=== PATIENT | male | born 1975 | race Caucasian/White ===

== ENCOUNTER 2017-12-23 20:47 | Inpatient (IN) | payer MEDICAID ==
[2017-12-23] MEDS ORDERED: HYDROmorphone INJ* 2 MG/ML CARPUJECT SYRINGE IV SLOW PU ONE (21:26)
[2017-12-23] MEDS ORDERED: HYDROmorphone INJ* 2 MG/ML CARPUJECT SYRINGE IV SLOW PU PRN (21:26)
[2017-12-23] MEDS ORDERED: Promethazine INJ(RESTRICTED)* 25 MG/ML 1 ML VIAL IV PRN ×2 (21:29→23:19)
[2017-12-23] MEDS ORDERED: NS 0.9% 1000 ML* 3,000 ML IV ONE (21:29)
[2017-12-23 22:16] LABS: ABS Basophils 0 10^3/ul (0-0.2); ABS Eosinophils 0.1 10^3/ul (0-0.6); ABS Lymphocytes 0.7 10^3/ul (1.0-4.8); ABS Monocytes 0.6 10^3/ul (0-0.8); ABS Neutrophils 6.4 10^3/ul (1.5-7.7); ABS Nucleated RBC 0 10^3/ul; Eosinophil % 0.7 % (0-6); Hematocrit 38 % (42-52); Hemoglobin 12.9 g/dl (14.0-18.0); Lymphocyte % 9.6 % (25-47); Mean Corpuscular HGB Conc 34 g/dl (31-36); Mean Corpuscular Hemoglobin 29 pg (27-31); Mean Corpuscular Volume 86 fL (80-94); Mean Platelet Volume 8.5 um3 (7.4-10.4); Nucleated Red Blood Cells % 0; Platelet Count 237 10^3/ul (150-450); Red Blood Count 4.41 10^6/ul (4.0-5.4); Red Cell Distribution Width 13 % (10.5-15); White Blood Count 7.8 10^3/ul (3.5-10.8)
[2017-12-23] MEDS ORDERED: Promethazine INJ(RESTRICTED)* 25 MG in NS 0.9% 50 ML* 50 ML IVPB ONE (22:45)
[2017-12-24] MEDS ORDERED: Al Hydrox/Mg Hydrox/Simet LIQ* 30 ML UDC PO PRN (00:08)
[2017-12-24] MEDS ORDERED: Dextrose 50% Syringe 50 ML* 25 GM/50 ML SYRINGE IV PUSH PRN ×4 (00:11→11:16)
[2017-12-24] MEDS ORDERED: Senna TAB PO PRN (00:24)
[2017-12-24] MEDS ORDERED: Docusate CAP* 100 MG PO PRN (00:24)
[2017-12-24] MEDS: Insulin GLARGINE(*) 1 UNITS UNIT SUBCUT SCH ×2 (01:27→10:32)
--- NOTE | 2017-12-24 01:47 | ED ---
Petey Garcia Julia, scribed for Phillip Mathis MD on 12/23/17 at 2241 . Abdominal Pain/Male - HPI Summary HPI Summary: This patient is a 42 year old M presenting to [facility] accompanied by his girlfriend with a chief complaint of RUQ abdominal pain since last night. Patient describes symptoms as a pancreatitis attack. He has a long history of pancreatitis with similar symptoms due to a hx of familial hypertriglyceridemia. He is often admitted for these symptoms. His girlfriend report nausea and vomiting. The patient rates the pain 8/10 in severity. PMHx includes IDDM. - History of Current Complaint Chief Complaint: EDAbdPain Stated Complaint: WEAKNESS/ABD PAIN Time Seen by Provider: 12/23/17 21:19 Hx Obtained From: Patient, Family/Post Manager Onset/Duration: Sudden Onset, Lasting Days Timing: Constant Pain Intensity: 8 Pain Scale Used: 0-10 Numeric Location: Discrete At: RUQ Character: Other: - pancreatitis attack Associated Signs And Symptoms: Positive: Nausea, Vomiting Similar Episode/Dx As:: familial hypertriglyceridemia - Allergies/Home Medications Allergies/Adverse Reactions: Allergies Allergy/AdvReac Type Severity Reaction Status Date / Time acetaminophen [From Tylenol] AdvReac Intermediate GI Upset Verified 12/23/17 20: 52 codeine AdvReac Intermediate GI Upset Verified 12/23/17 20:52 ibuprofen AdvReac Intermediate GI Upset Verified 12/23/17 20:52 Home Medications: Home Medications Gemfibrozil TAB* [Lopid TAB*] 600 mg PO BID 12/23/17 [History Confirmed ] PMH/Surg Hx/FS Hx/Imm Hx Endocrine/Hematology History: Reports: Hx Diabetes, Other Endocrine/ Hematological Disorders - pancreatitis Denies: Hx Thyroid Disease Cardiovascular History: Reports: Hx Hypercholesterolemia Denies: Hx Congestive Heart Failure, Hx Hypertension Respiratory History: Denies: Hx Asthma, Hx Chronic Obstructive Pulmonary Disease (COPD) GI History: Reports: Hx Gastroesophageal Reflux Disease Denies: Hx Ulcer History: Denies: Hx Dialysis, Hx Renal Disease Sensory History: Denies: Hx Cataracts, Hx Contacts or Glasses, Hx Eye Injury, Hx Eye Prosthesis, Hx Glaucoma, Hx Legally Blind, Hx Macular Degeneration, Hx Vision Problem, Hx Deafness, Hx Hearing Aid, Hx Hearing Problem, Other Sensory Impairments Opthamlomology History: Denies: Hx Cataracts, Hx Contacts or Glasses, Hx Eye Injury, Hx Eye Prosthesis, Hx Glaucoma, Hx Legally Blind, Hx Macular Degeneration, Hx Vision Problem, Other Sensory Impairments Neurological History: Denies: Hx Dementia, Hx Developmental Delay, Hx Headaches, Hx Migraine, Hx Nerve Disease, Hx Seizures, Hx Spinal Cord Injury, Hx Transient Ischemic Attacks (TIA), Other Neuro Impairments/Disorders - Surgical History Surgery Procedure, Year, and Place: skin grafting at 18 months of age on forehead, PEICE OF PANCREAS REMOVED 08/2014 @ [place], [place] W/A DRAIN IN PLACE Hx Anesthesia Reactions: No - Immunization History Date of Tetanus Vaccine: utd Date of Influenza Vaccine: fall 2016 Infectious Disease History: No Infectious Disease History: Denies: Hx Clostridium Difficile, Hx Hepatitis, Hx Human Immunodeficiency Virus (HIV), Hx of Known/Suspected MRSA, Hx Shingles, Hx Tuberculosis, Traveled Outside the in Last 30 Days - Family History Known Family History: Positive: Other - Familial hypercholesterolemia - Social History Alcohol Use: None Hx Substance Use: Yes Substance Use Type: Reports: None Substance Use Comment - Amount & Last Used: marijuana used occasionally to increase appetite and treat pain Hx Tobacco Use: Yes Smoking Status (MU): Current Every Day Smoker Type: Cigarettes Amount Used/How Often: 1/2 ppd Have You Smoked in the Last Year: Yes Review of Systems Negative: Fever Positive: Abdominal Pain, Vomiting, Nausea All Other Systems Reviewed And Are Negative: Yes Physical Exam - Summary Physical Exam Summary: Appearance: moderately ill appearing, Well-nourished, lying in bed comfortably Skin: Warm, dry, no obvious rash Eyes: sclera anicteric, no conjunctiva pallor ENT: mucous membranes moist, pharynx appears normal Neck: Supple, nontender Respiratory: Clear to auscultation, no signs of respiratory distress Cardiovascular: Normal S1, S2. No murmurs. Normal distal pulses in tibial and radial bilaterally. Abdomen: Soft, normal active bowel sounds present, generalized abdominal tenderness Musculoskeletal: Normal, Strength/ROM Intact Neurological: A&Ox3, awake and alert, mentation is normal, speech is fluent and appropriate Psychiatric: affect is normal, does not appear anxious or depressed Triage Information Reviewed: Yes Vital Signs On Initial Exam: Initial Vitals Temp Pulse Resp BP Pulse Ox 98.2 F 98 20 128/84 94 12/23/17 20:48 12/23/17 20:48 12/23/17 20:48 12/23/17 20:48 12/23/17 20:48 Vital Signs Reviewed: Yes Diagnostics - Vital Signs Vital Signs Temp Pulse Resp BP Pulse Ox 12/23/17 22:09 18 12/23/17 22:00 94 29 94 12/23/17 21:15 91 21 120/79 96 12/23/17 20:48 98.2 F 98 20 128/84 94 - Laboratory Lab Results: Lab Results 12/23/17 12/23/17 Range/Units 21:52 21:52 WBC 7.8 (3.5-10.8) 10^3/ul RBC 4.41 (4.0-5.4) 10^6/ul Hgb 12.9 L (14.0-18.0) g/dl Hct 38 L (42-52) % MCV 86 (80-94) fL MCH 29 (27-31) pg MCHC 34 (31-36) g/dl RDW 13 (10.5-15) % Plt Count 237 (150-450) 10^3/ul MPV 8.5 (7.4-10.4) um3 Neut % (Auto) 81.9 (38-83) % Lymph % (Auto) 9.6 L (25-47) % Terry % (Auto) 7.5 H (0-7) % Eos % (Auto) 0.7 (0-6) % Baso % (Auto) 0.3 (0-2) % Absolute Neuts (auto) 6.4 (1.5-7.7) 10^3/ul Absolute Lymphs (auto) 0.7 L (1.0-4.8) 10^3/ul Absolute Monos (auto) 0.6 (0-0.8) 10^3/ul Absolute Eos (auto) 0.1 (0-0.6) 10^3/ul Absolute Basos (auto) 0 (0-0.2) 10^3/ul Absolute Nucleated RBC 0 10^3/ul Nucleated RBC % 0 Sodium 132 L (139-145) mmol/L Potassium 3.9 (3.5-5.0) mmol/L Chloride 96 L (101-111) mmol/L Carbon Dioxide 27 (22-32) mmol/L Anion Gap 9 (2-11) mmol/L BUN 12 (6-24) mg/dL Creatinine 0.81 (0.67-1.17) mg/dL Est GFR ( Amer) 135.1 (>60) Est GFR (Non-Af Amer) 105.0 (>60) BUN/Creatinine Ratio 14.8 (8-20) Glucose 454 H (70-100) mg/dL Calcium 9.3 (8.6-10.3) mg/dL Total Bilirubin 0.70 (0.2-1.0) mg/dL AST 8 L (13-39) U/L ALT 8 (7-52) U/L Alkaline Phosphatase 83 (34-104) U/L Total Protein 8.1 (6.4-8.9) g/dL Albumin 3.6 (3.2-5.2) g/dL Globulin 4.5 H (2-4) g/dL Albumin/Globulin Ratio 0.8 L (1-3) Lipase 45 (11.0-82.0) U/L Result Diagrams: 12/23/17 21:52 12/23/17 21:52 Lab Statement: Any lab studies that have been ordered have been reviewed, and results considered in the medical decision making process. Abdominal Pain Fem Course/Dx - Diagnoses Provider Diagnoses: Chronic relapsing pancreatitis - Provider Notifications Discussed Care Of Patient With: Georgia Maguire - hospitalist Time Discussed With Above Provider: 23:36 Instructed by Provider To: Admit As Inpatient Discharge - Sign-Out/Discharge Documenting (check all that apply): Discharge/Admit/Transfer - admitted - Discharge Plan Condition: Guarded Disposition: ADMITTED TO [facility] - Billing Disposition and Condition Condition: GUARDED [place] [place] The documentation as recorded by the Petey miller Julia accurately reflects the service I personally performed and the decisions made by , Phillip Mathis MD.
[2017-12-24] MEDS ORDERED: Insulin LISPRO* 1 UNITS UNIT SUBCUT ONE ×2 (02:21→11:16)
[2017-12-24] MEDS: HYDROmorphone INJ* 2 MG/ML CARPUJECT SYRINGE IV SLOW PU PRN ×8 (02:35→22:32)
[2017-12-24] MEDS: Insulin LISPRO* 1 UNITS UNIT SUBCUT SCH ×7 (02:36→17:50)
[2017-12-24] MEDS ORDERED: Iodixanol* (CONTRAST) 320 MG/ML 100 ML SDV IV ONE (03:09)
--- NOTE | 2017-12-24 03:55 | HP ---
CC: Abraham Heller MD * HISTORY AND PHYSICAL: DATE OF ADMISSION: 12/24/17 TIME OF EVALUATION: 0000. PRIMARY CARE PHYSICIAN: Abraham Heller MD CHIEF COMPLAINT: Abdominal pain. HISTORY OF PRESENT ILLNESS: This is a 42-year-old male with a past medical history of recurrent acute on chronic pancreatitis, presents to the emergency room with abdominal pain. The patient states his abdominal pain started last Sunday, on 12/18/17; it progressively gotten worse and he began having nausea, vomiting last night, has had decrease in solid intake. He has been drinking adequate liquids. He has had chills. No fevers. No urinary symptoms. No diarrhea. He has had normal bowel movements up until yesterday. He has as mentioned nausea, vomiting. He was recently hospitalized about a month ago, had prolonged hospital course, initially admitted to [place] and they transferred him to [facility]; the states for necrotizing pancreatitis. He was placed on TPN. He was there for almost a month. He was discharged on 11/21/17. She also states he has poorly controlled diabetes. His readings are often read as high as 400 to 500. They have a hard time figuring what he can eat with his pancreatitis and his diabetes. The patient denies any chest pain or shortness of breath. No recent URI symptoms. Otherwise, remaining review of systems negative. In the emergency room, the patient had labs. He was given Dilaudid 2 mg and was referred to the hospitalist service for further evaluation. Also, got a liter. PAST MEDICAL HISTORY: 1. History of acute on chronic pancreatitis with recurrent admissions. As mentioned, recent admission in [facility] a month ago for what appears to be necrotizing pancreatitis, requiring prolonged hospitalization and needing TPN. Discharged on 11/21/17. 2. History of familial hypertriglyceridemia. 3. Diabetes, on insulin. 4. 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 MEDICATIONS: 1. Gemfibrozil 600 mg p.o. b.i.d. 2. Lantus 32 units subcu b.i.d. 3. [place]-3 fatty acids 1 cap p.o. t.i.d. 4. Humalog 12 to 18 subcu t.i.d. as needed. 5. Pancrelipase 25,000 units p.o. t.i.d. with meals. ALLERGIES: TYLENOL, CODEINE, IBUPROFEN; GI upset. FAMILY HISTORY: Father is alive with diabetes. Mother at age 54 [address] His brother has familial hypertriglyceridemia. SOCIAL HISTORY: The patient lives at home with his , Charlee Chinchilla, who is his healthcare proxy. He is , with 3 children. He smokes about 4 cigarettes. He has been smoking for the past 25 years. No alcohol use. He does use marijuana occasionally for pain relief. He is on disability. CODE STATUS: Full code. REVIEW OF SYSTEMS: A 14-point review of systems is mentioned in the HPI, otherwise negative. PHYSICAL EXAMINATION GENERAL: Some mild discomfort with his sitting at the bedside. VITAL SIGNS: Temp 98.2, pulse rate 81, respiratory rate 19, oxygen saturation 92 % on room air, blood pressure 132/77. HEENT: Head: Normocephalic. Pupils are equal and reactive, anicteric. Oropharynx: Mucous membranes are moist. NECK: Supple, no adenopathy. RESPIRATORY: Poor respiratory effort. No wheezes, rhonchi, or rales. CARDIAC: Regular rate and rhythm. No murmurs, rubs, or gallops. ABDOMEN: Hypoactive bowel sounds, soft, mild firmness, tenderness in the epigastric, left upper quadrant region. No rebound or guarding. EXTREMITIES: No clubbing, cyanosis, or edema. NEUROLOGIC: He is alert and oriented x3. No gross focal neurologic deficits. DERM: The patient with skin graft on his forehead and a vijaya over his right eyebrow. LABORATORY DATA: White count 7.8, hemoglobin 12.9, hematocrit 38, platelets 237. Sodium 132, potassium 3.9, chloride 96, bicarb 27, BUN 12, creatinine 0.81 , glucose 454, lipase is 45, albumin is 3.6. ASSESSMENT AND PLAN: This is a 42-year-old male with past medical history of familial hypertriglyceridemia and recurrent acute on chronic pancreatitis, who presents to the emergency room with persistent abdominal pain, nausea, vomiting consistent with pancreatitis. 1. Abdominal pain, nausea, vomiting. Assessment: The patient's findings are consistent with acute on chronic pancreatitis. Concerning factor is he was recently admitted in [facility] for prolonged hospitalization with necrotizing pancreatitis. He does not have a white count or fever here. Vitals unremarkable Plan: We will admit him into inpatient with IV fluids, n.p.o. We will get a CAT scan to further identify the extent of his pancreatitis, rule out necrotizing pancreatitis, though my suspicion is low for this in the setting of no fever or white count. Continue him on pain control and continue his gemfibrozil and repeat his lipase and check a lipid panel in the morning. We will obtain records from [facility] to get a better understanding of his prolonged hospitalization there. 2. Diabetes. Assessment: Poorly controlled. Plan: We will continue his Lantus. Place him on lispro sliding scale. Place a nutrition consult. Consider diabetes education consult. We will check a hemoglobin A1c. 3. Familial hypertriglyceridemia. Continue his gemfibrozil. We will hold his omega-3 fatty acids; we do not have this on formulary. 4. History of chronic pancreatitis. Continue his pancrelipase 25,000 units with meals. 5. FEN: As mentioned n.p.o. with IV fluids. Pain control. 6. DVT prophylaxis: The patient scores moderate risk. We will place him on heparin subcu t.i.d. 7. Code status: Full code. PATIENT TIME: Greater than 40 minutes was spent doing history and physical, more than half the time spent in direct patient contact. [facility] for [facility]rot[facility] and gastritis - Will start empiric zosyn until we can prior CT scans from a month ago to compare as his clinical presentation is not consistent with necrotizing pancreatitis. Will also start IV PPI. [id number]/[facility] #: [id number] JARAD
[2017-12-24] MEDS ORDERED: Piperacillin/Tazobac ADVAN(*) 3.375 GM in NS 0.9% 100 ML* 100 ML IVPB ONE (05:07)
[2017-12-24 05:54] LABS: ABS Basophils 0.1 10^3/ul (0-0.2); ABS Eosinophils 0.1 10^3/ul (0-0.6); ABS Lymphocytes 0.9 10^3/ul (1.0-4.8); ABS Monocytes 0.6 10^3/ul (0-0.8); ABS Neutrophils 5.3 10^3/ul (1.5-7.7); ABS Nucleated RBC 0 10^3/ul; Eosinophil % 0.8 % (0-6); Hematocrit 37 % (42-52); Hemoglobin 12.5 g/dl (14.0-18.0); Lymphocyte % 13.1 % (25-47); Mean Corpuscular HGB Conc 34 g/dl (31-36); Mean Corpuscular Hemoglobin 29 pg (27-31); Mean Corpuscular Volume 85 fL (80-94); Mean Platelet Volume 7.8 um3 (7.4-10.4); Nucleated Red Blood Cells % 0; Platelet Count 222 10^3/ul (150-450); Red Blood Count 4.31 10^6/ul (4.0-5.4); Red Cell Distribution Width 13 % (10.5-15); White Blood Count 6.9 10^3/ul (3.5-10.8)
[2017-12-24] MEDS ORDERED: Zosyn per Pharmacy* NOTE FOLLOW UP SCH (06:00)
[2017-12-24] MEDS: Pantoprazole IV* 40 MG IV SCH (06:04)
[2017-12-24] MEDS: Heparin VIAL(*) 5000 UNITS/ML VIAL (FIVE THOUSAND) SUBCUT SCH ×3 (06:06→21:40)
[2017-12-24 06:19] LABS: EGFR Non-African American 122.3 (>60)
[2017-12-24] MEDS ORDERED: Pancrelipase CAP* 5,000 UNITS CAP PO SCH (08:00)
[2017-12-24] MEDS: Ondansetron 40 MG VIAL* 2 MG/ML 20 ML VIAL IV PRN ×2 (08:07→18:17)
--- NOTE | 2017-12-24 08:22 | RAD ---
INDICATION: Necrotizing pancreatitis COMPARISON: CT June 10, 2016 TECHNIQUE: Axial source images were obtained from the hemidiaphragms to the symphysis pubis following administration of oral and intravenous contrast. 100 mL Visipaque 320 was utilized. Coronal and sagittal reconstructed images were acquired. Lung bases: The lung bases are clear. Liver: There is hepatomegaly. There are low-density lesions in the falciform ligament. These may represent fatty infiltration. These have been areas that were present previously although they are more conspicuous on today's examination. In the inferior right hepatic lobe, however, is a low-density lesion measuring 3.5 cm which was not present previously. There is a second low-density measuring 1 cm which is more anterior in location near the caudal extent. These are not documented previously. There are indeterminate findings. Suggest sonography for further evaluation. Gallbladder: There are no calcified gallstones. There is no evidence of wall thickening or pericholecystic fluid. Spleen: Moderate splenomegaly. Pancreas: The pancreas is ill-defined with extensive peripancreatic stranding. There is a air-containing localized fluid collection measuring 10.5 x 3.0 x 3.0 cm involving the pancreatic body and tail extending into the splenic hilar region. This associated with extraluminal air. This could be related to an abscess/pancreatic necrosis with infection. Adrenal glands: There is no evidence of adrenal mass. Kidneys: The kidneys are normal in size and position. There are prompt nephrograms and there is prompt excretion bilaterally. There is a lower pole left renal cyst measuring 2.1 cm. There is no evidence of nephrolithiasis. Adenopathy: There are mesenteric lymph nodes measuring less than 1 cm in short axis. These are likely reactive. Fluid collections: Extensive peripancreatic stranding is noted above.. Vessels:There are no significant atherosclerotic changes involving the aorta. There is no focal aneurysm. The iliac vessels are normal in caliber. The IVC appears normal. The portal vein is patent. 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 There are multiple collaterals in the splenic hilar region. GI tract: There are no definitive acute GI findings. There is mesenteric stranding around the stomach which is likely secondary to the primary pancreatic process. There is no obstruction. Pelvic organs: The prostate and seminal vesicles appear normal Bladder: There are no bladder masses. Abdominal and pelvic soft tissues: The extraperitoneal abdominal and pelvic soft tissues appear normal.. Osseous structures: There are no acute osseous findings. There is degenerative change at L5-S1. Other: None IMPRESSION: SUSPECT NECROTIZING PANCREATITIS WITH A 10.5 CM LOCALIZED FLUID COLLECTION WHICH MAY BE INFECTED. THERE IS ADJACENT FREE AIR. SPLENIC VENOUS THROMBOSIS. SUGGEST FOLLOW-UP.
[2017-12-24] MEDS ORDERED: Insulin GLARGINE(*) 1 UNITS UNIT SUBCUT ONE (09:41)
[2017-12-24] MEDS: Gemfibrozil TAB* 600 MG PO SCH ×2 (10:32→20:11)
[2017-12-24] MEDS: ZOSYN 3.375 GM Q8H per EXTENDED INFUSION IVPB SCH ×4 (10:44→17:45)
--- NOTE | 2017-12-24 11:52 | PN ---
Subjective Date of Service: 12/24/17 Interval History: Pt c/o severe abd pain. Was at [facility] till 11/18 for necrotizing pancreatitis, then [facility] to [facility]. got out of [facility] 4 days ago, now with sever pain x 48H. Last BM 5 days ago, passing flatus Objective Active Medications: Al Hydrox/Mg Hydrox/Simethicone (Maalox Plus*) 30 ml PO Q6H PRN PRN Reason: INDIGESTION Dextrose (D50w Syringe 50 Ml*) 12.5 gm IV PUSH .FOR FS < 60 - SS PRN PRN Reason: FS < 60 Docusate Sodium (Colace Cap*) 100 mg PO BID PRN PRN Reason: CONSTIPATION Gemfibrozil (Lopid Tab*) 600 mg PO BID [facility] Last Admin: 12/24/17 10:32 Dose: 600 mg Heparin Sodium (Porcine) (Heparin Vial(*)) 5,000 units SUBCUT Q8HR [facility] Last Admin: 12/24/17 06:06 Dose: 5,000 units Hydromorphone HCl (Dilaudid Inj*) 2 mg IV SLOW PU Q2H PRN PRN Reason: PAIN Last Admin: 12/24/17 10:28 Dose: 2 mg Lactated Ringer's (Lactated Ringers 1000 Ml Bag*) 1,000 mls @ 175 mls/hr IV PER RATE [facility] Last Admin: 12/24/17 07:59 Dose: 175 mls/hr Piperacillin Sod/Tazobactam (Sod 3.375 gm/ Sodium Chloride) 100 mls @ 25 mls/ hr IVPB Q8H [facility] Last Admin: 12/24/17 10:44 Dose: 25 mls/hr Insulin Glargine (Lantus(*)) 32 units SUBCUT BID [facility] Last Admin: 12/24/17 10:32 Dose: 32 units Insulin Human Lispro (Humalog*) 0 units SUBCUT AC [facility] PRN Reason: Protocol Last Admin: 12/24/17 09:07 Dose: Not Given Insulin Human Lispro (Humalog*) 0 units SUBCUT AC [facility] PRN Reason: Protocol Last Admin: 12/24/17 10:30 Dose: 8 units Ondansetron HCl (Zofran 40 Mg Vial*) 4 mg IV Q4H PRN PRN Reason: NAUSEA/VOMITING Last Admin: 12/24/17 08:07 Dose: 4 mg Pancrelipase (Zenpep Delayed Cap*) 25,000 units PO TID WITH MEALS [facility] Last Admin: 12/24/17 10:31 Dose: 25,000 units Pantoprazole Sodium (Protonix Iv*) 40 mg IV Q24H [facility] Last Admin: 12/24/17 06:04 Dose: 40 mg Pharmacy Consult (Zosyn Per Pharmacy*) 1 note FOLLOW UP .ZOSYN PER PHARMACY [facility] Senna (Senokot Tab*) 2 tab PO BEDTIME PRN PRN Reason: CONSTIPATION Vital Signs - 8 hr 12/24/17 12/24/17 12/24/17 03:53 03:55 06:34 Temperature 99.4 F Pulse Rate 86 Respiratory 16 16 16 Rate Blood Pressure 145/71 (mmHg) O2 Sat by Pulse 96 Oximetry 12/24/17 12/24/17 12/24/17 07:52 08:00 10:28 Temperature 99.5 F Pulse Rate 91 Respiratory 24 18 16 Rate Blood Pressure 125/77 (mmHg) O2 Sat by Pulse 94 Oximetry Oxygen Devices in Use Now: None Appearance: 42 yo M in nAD, aAOx3 Eyes: No Scleral Icterus, PERRLA Ears/Nose/Mouth/Throat: NL Teeth, Lips, Gums, Mucous Membranes Moist Neck: NL Appearance and Movements; NL JVP, Trachea Midline Respiratory: Symmetrical Chest Expansion and Respiratory Effort Cardiovascular: NL Sounds; No Murmurs; No JVD, RRR Abdominal: - - very tender in epigastrium , no rebound, no guarding, BS decrased throughout Lymphatic: No Cervical Adenopathy Extremities: No Edema, No Clubbing, Cyanosis Skin: No Rash or Ulcers, No Nodules or Sclerosis Neurological: Alert and Oriented x 3, NL Muscle Strength and Tone Result Diagrams: 12/24/17 05:37 12/24/17 05:37 Additional Lab and Data: Lab Results 12/23/17 12/23/17 Range/Units 21:52 21:52 WBC 7.8 (3.5-10.8) 10^3/ul RBC 4.41 (4.0-5.4) 10^6/ul Hgb 12.9 L (14.0-18.0) g/dl Hct 38 L (42-52) % MCV 86 (80-94) fL MCH 29 (27-31) pg MCHC 34 (31-36) g/dl RDW 13 (10.5-15) % Plt Count 237 (150-450) 10^3/ul MPV 8.5 (7.4-10.4) um3 Neut % (Auto) 81.9 (38-83) % Lymph % (Auto) 9.6 L (25-47) % [place] % (Auto) 7.5 H (0-7) % Eos % (Auto) 0.7 (0-6) % Baso % (Auto) 0.3 (0-2) % Absolute Neuts (auto) 6.4 (1.5-7.7) 10^3/ul Absolute Lymphs (auto) 0.7 L (1.0-4.8) 10^3/ul Absolute Monos (auto) 0.6 (0-0.8) 10^3/ul Absolute Eos (auto) 0.1 (0-0.6) 10^3/ul Absolute Basos (auto) 0 (0-0.2) 10^3/ul Absolute Nucleated RBC 0 10^3/ul Nucleated RBC % 0 Sodium 132 L (139-145) mmol/L Potassium 3.9 (3.5-5.0) mmol/L Chloride 96 L (101-111) mmol/L Carbon Dioxide 27 (22-32) mmol/L Anion Gap 9 (2-11) mmol/L BUN 12 (6-24) mg/dL Creatinine 0.81 (0.67-1.17) mg/dL Est GFR ( Amer) 135.1 (>60) Est GFR (Non-Af Amer) 105.0 (>60) BUN/Creatinine Ratio 14.8 (8-20) Glucose 454 H (70-100) mg/dL Calcium 9.3 (8.6-10.3) mg/dL Total Bilirubin 0.70 (0.2-1.0) mg/dL AST 8 L (13-39) U/L ALT 8 (7-52) U/L Alkaline Phosphatase 83 (34-104) U/L Total Protein 8.1 (6.4-8.9) g/dL Albumin 3.6 (3.2-5.2) g/dL Globulin 4.5 H (2-4) g/dL Albumin/Globulin Ratio 0.8 L (1-3) Lipase 45 (11.0-82.0) U/L Assess/Plan/Problems-Billing Assessment: 42 yo M h/o, familial hypertriglyceridemia, pancreatitis since 2000 with multiple complications and surgeries including partial pancreatectomy , biliary stent (c/b ?peritonitis requiring ex lap and wash out) returning with increased abdominal pain, after an episode of necrotizing pancreatitis at [facility] with d/c on 11/18/17. now with DM-insulin dependent - Patient Problems (1) Pancreatic cyst Comment: CT shows possibly infectied pancreatitc cyst at 210.5 cm. D/w DR. Franco. Will transfer to a tertiary care center. Spoke with [facility]-they don"'t have beds. [facility] agrees to accept pt tomorrow if beds still not avaliable at [facility] cont Zosyn . IVF and NPO Pt is hemodynamically stable and nontoxic appearing (2) Chronic pancreatitis Comment: lipase WNL, cont Lopid. Holding Creon when NPO (3) Diabetes mellitus Comment: S/P partial pancreatectomy 08/2014 at [facility]. cont Lantus at home dose, will add on and additional dose today, cont ISS (4) DVT prophylaxis Comment: HSQ Status and Disposition: Inpatient, awaiting transfer
[2017-12-24] MEDS: D5W NS 0.9% 20Meq KCL 1000 ML* 1,000 ML IV SCH (18:09)
[2017-12-24] MEDS ORDERED: Acetaminophen SUPP* 650 MG SUPP PR PRN (19:27)
[2017-12-25] MEDS: HYDROmorphone INJ* 2 MG/ML CARPUJECT SYRINGE IV SLOW PU PRN ×6 (00:47→11:51)
[2017-12-25] MEDS: ZOSYN 3.375 GM Q8H per EXTENDED INFUSION IVPB SCH ×4 (02:00→09:47)
[2017-12-25] MEDS: D5W NS 0.9% 20Meq KCL 1000 ML* 1,000 ML IV SCH ×2 (02:04→12:02)
[2017-12-25] MEDS: Ondansetron 40 MG VIAL* 2 MG/ML 20 ML VIAL IV PRN ×3 (03:20→11:51)
[2017-12-25] MEDS: Pantoprazole IV* 40 MG IV SCH (05:39)
[2017-12-25 05:41] LABS: ABS Basophils 0 10^3/ul (0-0.2); ABS Eosinophils 0 10^3/ul (0-0.6); ABS Lymphocytes 0.8 10^3/ul (1.0-4.8); ABS Monocytes 0.8 10^3/ul (0-0.8); ABS Neutrophils 7.8 10^3/ul (1.5-7.7); ABS Nucleated RBC 0 10^3/ul; Eosinophil % 0.5 % (0-6); Hematocrit 36 % (42-52); Hemoglobin 12.2 g/dl (14.0-18.0); Lymphocyte % 8.9 % (25-47); Mean Corpuscular HGB Conc 34 g/dl (31-36); Mean Corpuscular Hemoglobin 29 pg (27-31); Mean Corpuscular Volume 86 fL (80-94); Mean Platelet Volume 8.5 um3 (7.4-10.4); Nucleated Red Blood Cells % 0; Platelet Count 190 10^3/ul (150-450); Red Blood Count 4.23 10^6/ul (4.0-5.4); Red Cell Distribution Width 14 % (10.5-15); White Blood Count 9.5 10^3/ul (3.5-10.8)
[2017-12-25] MEDS: Heparin VIAL(*) 5000 UNITS/ML VIAL (FIVE THOUSAND) SUBCUT SCH (05:41)
[2017-12-25 06:01] LABS: EGFR Non-African American 116.6 (>60)
[2017-12-25] MEDS: Insulin LISPRO* 1 UNITS UNIT SUBCUT SCH ×4 (07:53→12:15)
[2017-12-25] MEDS ORDERED: Insulin GLARGINE(*) 1 UNITS UNIT SUBCUT SCH (09:00)
[2017-12-25] MEDS: Gemfibrozil TAB* 600 MG PO SCH (09:12)
[2017-12-25] MEDS ORDERED: metroNIDAZOLE IV 500 MG/100ML* 500 MG/100 ML BAG IVPB SCH (10:30)
--- NOTE | 2017-12-25 11:23 | TRS ---
CC: Dr. Heller; Dr. Franco * TRANSFER SUMMARY: DATE OF ADMISSION: 12/24/17 DATE OF ANTICIPATED TRANSFER: 12/24/17 Facility the patient is being transferred to is not yet determined. PRIMARY CARE PROVIDER: Dr. Heller. 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 SECONDARY DIAGNOSES: 1. History of ghoft-jk-vkyqjax pancreatitis with recurrent admissions. Patient has a history of partial pancreatectomy in the past and chronic pancreatic insufficiency with subsequent development of diabetes. Patient has a history of recent admission to [facility] for necrotizing pancreatitis requiring prolonged hospitalization ending on 11/18/17. 2. History of familial hypertriglyceridemia, which apparently is the cause of patient's recurrent pancreatitis. 3. History of diabetes, on insulin. 4. 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 MEDICATIONS: At home prior to admission included: 1. Gemfibrozil 600 mg b.i.d. 2. Lantus insulin 32 units b.i.d. 3. [place] 3 fatty acids 1 capsule 3 times a day. 4. Humalog 12 to 18 units subcutaneously 3 times a day as needed. 5. Creon 25,000 units 3 times a day with meals. Medications at the time of transfer include: 1. D5 normal saline with 20 mEq of potassium at 125 mL an hour. 2. Gemfibrozil 600 mg b.i.d. 3. Heparin subcutaneously 5000 units every 8 hours for DVT prophylaxis. 4. Hydromorphone 2 mg IV every 2 hours p.r.n. 5. Insulin glargine. Due to hypoglycemia, tonight patient's insulin was held and is going to be restarted at 20 units daily beginning on 12/25/17. 6. Zofran 4 mg IV every 4 hours p.r.n. 7. Insulin lispro sliding scale. 8. Protonix 40 mg IV every 24 hours. 9. Zosyn 3.37 g IV every 8 hours continuous infusion. 10. Senna 2 tablets at bedtime p.r.n. LABORATORY DATA AND STUDIES PERFORMED DURING THE HOSPITAL STAY: On 12/24/17, white blood cell count of 6.9, hemoglobin 12.5, hematocrit of 37, platelets of 222. Patient's C-reactive protein was 119. Sodium was 135, potassium 3.9, chloride 101, carbon dioxide 30, BUN 7, creatinine 0.7. Patient's most recent glucose level was 57 and patient's glucose overall ranged from 400 to 300 throughout his past hospital stay. Triglyceride level was 329, cholesterol level 139, LDL of 55, HDL of 18, and lipase of 26. CT of the abdomen and pelvis obtained on 12/24/17, impression: "Suspect necrotizing pancreatitis with 10.5 cm localized fluid collection which may be infected. There is adjacent free air. Splenic venous thrombosis. Suggest followup." CONSULTATION DURING THE HOSPITAL STAY: Included Dr. Franco from Surgery. HOSPITALIZATION COURSE: Ryder Chinchilla is a 42-year-old male with a history of recurrent pancreatitis, who had just prolonged hospital stay at [facility] ending on 11/18/17. He stated that he was discharged from [facility] to group home where he was up to 5 days ago. He was discharged home 5 days ago, and for the past 2 days, he has had severe abdominal pain. Of note, patient stated that his abdominal pain after his episode of necrotizing pancreatitis that was treated in [facility] never resolved, but for the past 48 hours, it is much worse. CT of the abdomen showed likely pancreatic pseudocyst or other fluid collection that appears to be infected. Patient's C-reactive protein is markedly elevated and patient was started on Zosyn, placed on n.p.o. diet except ice chips. I spoke with Dr. Franco, who is the surgeon on-call for [facility]. Our surgeons are not comfortable with treating this patient with necrotizing pancreatitis and consequences thereof at our medical center. It was requested for the patient to be transferred. [facility] was notified, but for the time being, they do not have beds. If [facility] does not have a bed available until 12/25/17 in the morning, [facility], whose hospitalist I already discussed the case with, agreed to have the patient transferred to them in the morning on 12/25/17. Please note that this dictation is in anticipation of patient's transfer. For physical exam prior to patient's discharge, please see daily progress notes. [id number]/[facility] #: [id number] MTDD
[2017-12-25 11:25] VITALS: BP 114/71
[2017-12-25] MEDS ORDERED: Cefepime 2 GM in Dextrose(*) 2 GM/50 ML BAG IV SCH (16:00)
--- NOTE | 2017-12-25 20:09 | TRS ---
TRANSFER SUMMARY: DATE OF ADMISSION: 12/24/17 DATE OF TRANSFER: 12/25/17 ADDENDUM: Mr. Chinchilla was hospitalized overnight and was noted to have T-max of 102.7 degrees Fahrenheit overnight, treated with Tylenol suppositories, responded to antipyretic. The following day, his white blood cell count remained nominal at 9.5; however, his pain and nausea continued, remained n.p.o. Review of records indicate an enlarged mass compared to imaging performed at [facility] on 11/05/17, at that point 8.1 x 4.5 x 4.1 and now measuring 10.5 x 3 x 3 cm in the body and tail extending to the splenic hilar region associated with extraluminal air as well as air contained within the localized fluid collection. Discussion with hospitalist as well as surgeon at [facility], the patient will be accepted to transfer directly to the ICU under the service of Dr. Martinez. Previous surgeries and hospital stay was at [facility]; however, currently that hospital is on diversion. No other complications at the time of dictated discharge yesterday by Dr. Giron. All the relevant medical records including those from [facility] will be transferred with the patient. Please do not hesitate to contact this author, Klever Palomo MD, with any questions or concerns. Thank you for the care of this patient. [id number]/[facility] #: [id number] MTDD
--- NOTE | 2018-01-11 15:12 | CONS ---
CC: Dr. Heller. CONSULTATION REPORT: DATE OF CONSULT: 12/24/17. REQUESTING PHYSICIAN: Dr. Maguire. INDICATION: Pancreatitis. NARRATIVE: Mr. Chinchilla is a 42-year-old patient of Dr. Ag, who had a long history of pancreatiti s, felt to secondary to hypertriglyceridemia. The patient just [facility] out of [facility] and was admitted with severe pain. He was released from [facility] last month for the same issue. The patien t presents with very severe pain, no fever or chills. He did have a CT that showed necrotizing pancr eatitis with approximately an 11-cm cyst versus pseudocyst with free air and he likely will be transf erred back to [facility] for further followup of this. He is complaining of nausea, no vomiting. He dunlap s severe generalized abdominal pain. He denies any recent alcohol use. PAST MEDICAL HISTORY: Significant for hypertriglyceridemia, obesity, diabetes, tobacco abuse. MEDICATIONS: Include: 1. Lopid. 2. Pancrease. 3. QVAR. 4. Dilaudid. 5. Zofran. SOCIAL HISTORY: He has been incarcerated. 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 He is and has 3 children. His is with him today. REVIEW OF SYSTEMS: Twelve systems were reviewed. Other than mentioned in the HPI were unremarkable. PHYSICAL EXAM: Temperature is 98.8, T-max is 100.1, blood pressure is 135/71, pulse of 93. General: Moderately ill-appearing male in no apparent distress. Alert, oriented, pleasant, and fluent. HEEN T: Mucous membranes are moist without lesions, ulcers, or exudates. Neck is supple. Trachea is mid line. Head is normocephalic, atraumatic. Heart: Regular rate and rhythm. Lungs: Clear to auscult ation. Abdomen: Very hypoactive bowel sounds. He is softly distended. No rebound, no guarding. H e is diffusely tender throughout. Skin: Warm and dry. DIAGNOSTIC STUDIES/LAB DATA: Labs of note, triglycerides of 329, white count of 6.9, platelets 222. Hemoglobin 12.5, glucose 214. Sodium is 135. ASSESSMENT AND PLAN: This is a 42-year-old gentleman with chronic pancreatitis, admitted with likel y necrotizing pancreatitis, with an 11-cm cyst. At this point, he does need drainage. He is waiting on a transfer to [facility]. He remains on antibiotics. I heard that he will be leaving here shortly as a bed has become available. I will continue to follow along until that point. [id number]/[facility] #: [id number]
== END 2017-12-25 12:15 | disposition short-term general hospital (02) | DRG 282 ==
LOC: ED 20:47 → SSU 12-24 00:08
PROVIDERS: ADMIT Pediatrics; ATTEND Internal Medicine
DX: K85.82 Other acute pancreatitis with infected necrosis (principal); K86.3 Pseudocyst of pancreas; E78.1 Pure hyperglyceridemia; E11.9 Type 2 diabetes mellitus without complications; K86.1 Other chronic pancreatitis; K86.81 Exocrine pancreatic insufficiency; K29.70 Gastritis, unspecified, without bleeding; F17.210 Nicotine dependence, cigarettes, uncomplicated; Z79.4 Long term (current) use of insulin; Z79.899 Other long term (current) drug therapy; Z88.6 Allergy status to analgesic agent; Z88.5 Allergy status to narcotic agent; Z83.3 Family history of diabetes mellitus; Z82.49 Family history of ischemic heart disease and other diseases of the circulatory system; Z84.89 Family history of other specified conditions
CPT/HCPCS: 36415; 74177; 80048; 80053; 80061; 82947; 83036; 83690; 84134; 85025; 86140; 99284; A9270-GY; J0692; J1170; J1644; J1815; J2543; J2550; J3490; Q9967

== ENCOUNTER 2018-03-31 17:33 | Emergency (ER) | payer OTHER ==
[2018-03-31] MEDS ORDERED: Ondansetron INJ* 2 MG/ML VIAL IV ONE (17:37)
--- OUTSIDE RECORDS SUMMARY | 2018-03-31 17:42 | XMS REPORT ---
:1975 External Reference #:[id number] Author Organization [facility] Address [address] [place] [address] [place] [address] Phone [phone] Care Team Providers Name Role Phone Michael Foreman M.D. Care Team Information Block Operator Unavailable Payers Type Date Identification Numbers Payment Provider Subscriber Commercial Policy Number: [id number] [employer] Ryedr Chinchilla PayID: [id number] [address] [place] [id number] Problems Date Description Provider Status Onset: 03/08/2018 Mood disorder Azael Olvera MD Active Onset: 03/08/2018 Tobacco user Azael Olvera MD Active Onset: 03/08/2018 Other chronic pancreatitis Azael Olvera MD Active Onset: 03/08/2018 Pure hyperglyceridemia Azael Olvera MD Active Onset: 03/08/2018 Type II diabetes mellitus uncontrolled Azael Olvera MD Active Onset: 03/08/2018 Disorder of spleen Azael Olvera MD Active Social History Type Date Description Comments Smoking Light tobacco smoker (10 or fewer cigarettes/day) Allergies, Adverse Reactions, Alerts Date Description Reaction Status Severity Comments 03/08/2018 NKDA active Medications Medication Date Status Form Strength Qnty SIG Indications Ordering Provider Lancets 03/08/ Active Misc 30G 100un For use E11.65 Azael 2018 its with your MD Wade glucometer Lantus 03/08/ Active Solution 100Unit/ML 10ml 30U twice a E11.65 Azael 2017 jose Olvera MD Zofran 03/08/ Active Tablets 4mg 30tab take 1 tab K86.1 Azael 2017 s every 6 MD Wade hours as needed for vomiting. Hydromorphone / Active Tablets 4mg 1 tab by Unknown HCL 0000 mouth twice daily as needed. Lantus / Active Solution 100Unit/ML 40 unit SQ Unknown 0000 daily Humalog / Active Solution 100Unit/ML sliding Unknown 0000 scale. Lovaza / Active Capsules 1gm take two Unknown 0000 capsules by mouth twice a day Vitamin D / Active 1 once Unknown 0000 week Creon / [place] [address] take 2 Unknown 0000 Part capsules with meals Vital Signs Date Vital Result Comment 03/08/2018 Height 71 inches 5'11" Weight 182.00 lb Heart Rate 80 /min BP Systolic Sitting 132 mmHg BP Diastolic Sitting 87 mmHg Respiratory Rate 18 /min Body Temperature 98.3 F Pain Level 8 O2 % BldC Oximetry 98 % BMI (Body Mass Index) 25.4 kg/m2 Results Test Date Test Result H/L Range Note Laboratory test finding 03/08/2018 Procalcitonin <pending> Procedures Date CPT Code Description Status 07/10/2014 63332 EKG, Interpretation Only Completed 06/01/2014 20039 EKG, Interpretation Only Completed 05/31/2014 94960 EKG, Interpretation Only Completed Encounters Type Date Location Provider CPT E/M Dx Office Visit 12/25/2017 [facility], Klever Palomo, 40[address] K85.90 11:11a Hospitalists Lianna K86.1 E78.1 E11.9 Office Visit 12/24/2017 11:10a [facility], [place] [address] K85.90 Hospitalists K86.1 E78.1 E11.9 Office Visit 06/22/2016 1:47p [facility], Preston Ernandez, 21103 K85.92 Hospitalists Lianna R10.9 E78.1 G89.29 Office Visit 06/21/2016 1:47p [facility], Preston Ernandez, 67048 K85.92 Hospitalists Lianna R10.9 E78.5 G89.29 Office Visit 06/20/2016 1:46p [facility], Jacquelyn Leahy, 38494 K85.92 Hospitalists Justin R10.9 E78.1 Office Visit 05/30/2016 10:09a [facility] [address] K85.90 Hospitalists E11.01 E78.1 Office Visit 05/29/2016 10:08a [facility] [address] K85.90 Hospitalists E11.01 E78.1 Office Visit 05/28/2016 10:08a [facility] Panchito Jeter, 20850 K85.90 Assoc,pc Hospitalists M.DRylee E11.01 E78.1 Office Visit 05/27/2016 10:07a [facility] Panchito Jeter, 18941 E11.01 Assoc,pc Hospitalists M.DRylee E78.1 K85.90 Office Visit 05/26/2016 10:07a [facility], Michael Foreman M.D. 44274 K85.90 Hospitalists E11.01 E78.1 Office Visit 03/21/2016 12:38p [facility], Klever Palomo, 71853 K85.9 Hospitalists M.D. E11.9 K86.1 Office Visit 03/20/2016 12:38p [facility], Klever Ringgold, 67651 K85.9 Hospitalists M.D. E11.9 K86.1 Z79.4 Office Visit 03/19/2016 12:37p [facility], Klever Palomo, 13305 K85.9 Hospitalists M.D. E11.9 K86.1 Z79.4 Office Visit 03/18/2016 12:37p [facility], Klever Palomo, 45877 K85.9 Hospitalists M.D. E11.9 K86.1 Z79.4 Office Visit 03/17/2016 12:36p [facility], 42411 K85.9 Assoc,pc Hospitalists M.D. E11.9 K86.1 Z79.4 Office Visit 07/14/2015 9:32a [facility] Linda Brown, 18720 K85.9 Hospitalists MLinda E87.1 E11.9 E78.1 Office Visit 07/13/2015 9:32a [facility], Linda Brown, 41383 K85.9 Hospitalists M.Ángel E87.1 E11.9 Office Visit 11/10/2014 8:41a [facility] [address] 577.0 Hospitalists 789.00 272.1 250.00 Office Visit 11/09/2014 8:41a [facility] [address] 577.0 Hospitalists 789.00 272.1 250.00 Office Visit 11/08/2014 8:41a [facility] Sugar Giron, 26149 577.0 Hospitalists M.DRylee 789.00 250.00 272.1 Office Visit 11/07/2014 8:40a [facility] Linda Brown, 53415 577.0 Hospitalists M.DRylee 789.00 272.1 250.00 Office Visit 07/15/2014 3:01p [facility] Klever Palomo, 97864 577.0 Hospitalists M.DRylee 577.1 577.2 272.1 Office Visit 07/14/2014 3:01p [facility] Sugar Giron, 93819 577.0 Hospitalists M.DRylee 577.1 577.2 272.1 Office Visit 07/13/2014 3:01p [facility], Sugar Giron, 61671 577.0 Hospitalists M.DRylee 577.1 577.2 272.1 Office Visit 07/12/2014 3:00p [facility], Sugar Giron, 57177 577.2 Hospitalists M.DRylee 577.1 577.0 272.1 Office Visit 07/11/2014 3:00p [facility] Michael Foreman M.D. 25428 577.0 Hospitalists 577.1 577.2 272.1 Office Visit 07/10/2014 2:59p [facility] Don Villalobos [address] 577.0 Hospitalists Lianna Kohli 577.1 577.2 272.1 Office Visit 06/27/2014 5:32p [place] [address] 789.00 Assoc,pc Hospitalists Lianna 787.01 564.00 577.2 Office Visit 06/01/2014 11:03a [facility] [address] 577.0 Hospitalists 787.01 272.1 250.00 Office Visit 05/31/2014 11:03a [facility] [address] 577.0 Hospitalists 272.1 787.01 250.00 Office Visit 05/18/2014 8:04p [facility] Michael Foreman M.D. 58712 577.0 Hospitalists 250.00 272.1 Plan of Care Future Appointment(s):03/13/2018 3:00 pm - Magali Deras DO at [facility]03/08/2018 - SOLOMON Mccormick86.1 Other chronic pancreatitisNew Medication:Zofran 4 mgComments:I plan to send clinical documents up to Surgery Department at [facility] [place] [place] (FAX [phone]) on Sunday in order to set up an outpatient evaluation for a 2nd opinion. It is critical to get your diabetes under better control (plan below) Blood work ordered: CBC, CMP, CRP, procalcitonin Continue creonContinue dilaudidAdd zofran for nauseaFollow up:Please follow-up in 1 week.D73.5 Infarction of wjlqlrF94.65 Type 2 diabetes mellitus with hyperglycemiaNew Medication:Lancets 30 GLantus 100 Unit/MLComments:You were given a referral to the new Logistics/Shipper Dr. Fuentes Jade and Diabetes Generating Plant Superintendent Olga Chen at [facility].Increase the lantus to 30U twice a day. Please record your blood sugars fasting in AM, before each meal and before bedtime.Referral: Olga Jules CNM, Flexboard Operator/RNE78.1 Pure hyperglyceridemiaComments: continue abqtfmjkrqfD08.210 Nicotine dependence, cigarettes, uncomplicatedComments:Address smoking cessation in coming visits.F06.31 Mood disorder due to known physiol cond w depressv features
[2018-03-31] MEDS ORDERED: Morphine VIAL* 4 MG/ML VIAL (1 ml vial) IV ONE (18:05)
[2018-03-31] MEDS ORDERED: NS 0.9% 1000 ML* 1,000 ML IV ONE (18:05)
[2018-03-31 18:06] LABS: ABS Basophils 0.1 10^3/ul (0-0.2); ABS Eosinophils 0.1 10^3/ul (0-0.6); ABS Lymphocytes 1.9 10^3/ul (1.0-4.8); ABS Monocytes 0.6 10^3/ul (0-0.8); ABS Neutrophils 6.5 10^3/ul (1.5-7.7); ABS Nucleated RBC 0 10^3/ul; Eosinophil % 1.2 % (0-6); Hematocrit 47 % (42-52); Hemoglobin 16.2 g/dl (14.0-18.0); Mean Corpuscular HGB Conc 35 g/dl (31-36); Mean Corpuscular Hemoglobin 30 pg (27-31); Mean Corpuscular Volume 86 fL (80-94); Mean Platelet Volume 8.8 um3 (7.4-10.4); Nucleated Red Blood Cells % 0.1; Platelet Count 266 10^3/ul (150-450); Red Blood Count 5.45 10^6/ul (4.00-5.40); Red Cell Distribution Width 16 % (10.5-15); White Blood Count 9.2 10^3/ul (3.5-10.8)
[2018-03-31] MEDS ORDERED: Morphine INJ* 2 MG/ML 1 ML SYRINGE (TWO MG - NEW SYRINGE VERSION) ONE (18:12)
[2018-03-31 18:23] LABS: EGFR Non-African American 111.3 (>60)
--- NOTE | 2018-03-31 18:30 | ED ---
Abdominal Pain/Male - HPI Summary HPI Summary: Patient is a 42-year-old male with a history of type 1 diabetes, chronic pancreatitis, hypercholesterolemia presenting to the ED with complaints of left upper quadrant pain radiating into the left mid back. He states this is his typical pancreatitis symptoms. He has had a distal pancreatectomy for chronic pancreatitis 3 years ago at [facility]. Endorses pain to the LUQ since discharge from the hospital at [facility] for pancreatitis 1 month ago, however has been maintaining on his at home Dilaudid. He states he ran out of his pain medication and has been unable to "take the pain anymore." He denies any nausea , vomiting, diarrhea, constipation. Denies any urinary symptoms. Denies any chest pain or SOB. He endorses darkened urine, but states this is fairly common for him. Last bowel movement this morning and bowel movements have been regular for him. He is a smoker endorsing 8 cigarettes per day on average. Smokes marijuana frequently for pain control. Denies any alcohol use since being diagnosed with chronic pancreatitis as of 2002. While pain has been present over the past month and controlled by his Dilaudid, he states pain increased severely this afternoon around 1 PM. Symptoms are aggravated with nothing and alleviated with nothing. Medications include daily hydromorphone, gabapentin, gemfibrozil, Lopid, Lantus and Humulin. His sugars have been controlled, however he endorses a 238 BG this afternoon. - History of Current Complaint Chief Complaint: EDAbdPain Stated Complaint: ABD PAIN Time Seen by Provider: 03/31/18 17:35 Hx Obtained From: Patient Onset/Duration: Gradual Onset Timing: Constant Severity Initially: Severe Severity Currently: Severe Pain Intensity: 10 Pain Scale Used: 0-10 Numeric Location: Discrete At: LUQ Radiates: Yes Radiates to: Back, Flank Character: Cramping Aggravating Factor(s): Nothing Alleviating Factor(s): Nothing Associated Signs And Symptoms: Positive: Negative. Negative: Chest Pain, Constipation, Blood in Stool, Urinary Symptoms, Vomiting, Diarrhea, Penile Discharge - Risk Factors Testicular Torsion: Negative Cardiac Risk Factors: Elevated Lipids - Allergies/Home Medications Allergies/Adverse Reactions: Allergies Allergy/AdvReac Type Severity Reaction Status Date / Time acetaminophen [From Tylenol] AdvReac Intermediate GI Upset Verified 12/23/17 20: 52 codeine AdvReac Intermediate GI Upset Verified 12/23/17 20:52 ibuprofen AdvReac Intermediate GI Upset Verified 12/23/17 20:52 PMH/Surg Hx/FS Hx/Imm Hx Previously Healthy: Yes Endocrine/Hematology History: Reports: Hx Diabetes, Other Endocrine/ Hematological Disorders - pancreatitis Denies: Hx Thyroid Disease Cardiovascular History: Reports: Hx Hypercholesterolemia Denies: Hx Congestive Heart Failure, Hx Hypertension Respiratory History: Denies: Hx Asthma, Hx Chronic Obstructive Pulmonary Disease (COPD) GI History: Reports: Hx Gastroesophageal Reflux Disease Denies: Hx Ulcer, Other GI Disorders - Pancreatitis, chronic History: Denies: Hx Dialysis, Hx Renal Disease Sensory History: Denies: Hx Cataracts, Hx Contacts or Glasses, Hx Eye Injury, Hx Eye Prosthesis, Hx Glaucoma, Hx Legally Blind, Hx Macular Degeneration, Hx Vision Problem, Hx Deafness, Hx Hearing Aid, Hx Hearing Problem, Other Sensory Impairments Opthamlomology History: Denies: Hx Cataracts, Hx Contacts or Glasses, Hx Eye Injury, Hx Eye Prosthesis, Hx Glaucoma, Hx Legally Blind, Hx Macular Degeneration, Hx Vision Problem, Other Sensory Impairments Neurological History: Denies: Hx Dementia, Hx Developmental Delay, Hx Headaches, Hx Migraine, Hx Nerve Disease, Hx Seizures, Hx Spinal Cord Injury, Hx Transient Ischemic Attacks (TIA), Other Neuro Impairments/Disorders Psychiatric History: Reports: Hx Depression - Surgical History Surgery Procedure, Year, and Place: skin grafting at 18 months of age on forehead, PEICE OF PANCREAS REMOVED 08/2014 @ [place], [place] W/A DRAIN IN PLACE Hx Anesthesia Reactions: No - Immunization History Date of Tetanus Vaccine: utd Date of Influenza Vaccine: fall 2016 Hx Pertussis Vaccination: No Immunizations Up to Date: Unable to Obtain/Confirm Infectious Disease History: No Infectious Disease History: Denies: Hx Clostridium Difficile, Hx Hepatitis, Hx Human Immunodeficiency Virus (HIV), Hx of Known/Suspected MRSA, Hx Shingles, Hx Tuberculosis, Traveled Outside the US in Last 30 Days - Family History Known Family History: Positive: Other - Familial hypercholesterolemia - Social History Occupation: Employed Full-time Lives: With Family Alcohol Use: None Hx Substance Use: Yes Substance Use Type: Reports: None Substance Use Comment - Amount & Last Used: Marijuana used occasionally to increase appetite and treat pain Hx Tobacco Use: Yes Smoking Status (MU): Current Every Day Smoker Type: Cigarettes Amount Used/How Often: 1/2 ppd Have You Smoked in the Last Year: Yes Review of Systems Constitutional: Negative Negative: Fever, Chills, Fatigue, Skin Diaphoresis Negative: Palpitations, Chest Pain Negative: Shortness Of Breath, Cough Positive: Abdominal Pain. Negative: Vomiting, Diarrhea, Nausea Genitourinary: Negative Positive: no symptoms reported, see HPI Negative: Arthralgia, Myalgia Skin: Negative Negative: Headache, Weakness, Paresthesia Psychological: Normal All Other Systems Reviewed And Are Negative: Yes Physical Exam Triage Information Reviewed: Yes Vital Signs On Initial Exam: Initial Vitals Temp Pulse Resp BP Pulse Ox 99.9 F 90 22 124/90 98 03/31/18 17:40 03/31/18 17:40 03/31/18 17:40 03/31/18 17:40 03/31/18 17:40 Vital Signs Reviewed: Yes Appearance: Positive: Pain Distress Skin: Positive: Warm, Skin Color Reflects Adequate Perfusion Head/Face: Positive: Normal Head/Face Inspection Eyes: Positive: EOMI, ZAINAB, Conjunctiva Clear Neck: Positive: Supple, No Lymphadenopathy Respiratory/Lung Sounds: Positive: Clear to Auscultation, Breath Sounds Present Cardiovascular: Positive: RRR, Pulses are Symmetrical in both Upper and Lower Extremities. Negative: Leg Edema Left, Leg Edema Right Abdomen Description: Positive: Other: - discrete tenderness to the LUQ Bowel Sounds: Positive: Present Musculoskeletal: Positive: Strength/ROM Intact Neurological: Positive: Speech Normal Psychiatric: Positive: Affect/Mood Appropriate AVPU Assessment: Alert Diagnostics - Vital Signs Vital Signs Temp Pulse Resp BP Pulse Ox 03/31/18 17:40 99.9 F 90 22 124/90 98 - Laboratory Lab Results: Lab Results 03/31/18 03/31/18 Range/Units 17:57 17:57 WBC 9.2 (3.5-10.8) 10^3/ul RBC 5.45 H (4.00-5.40) 10^6/ul Hgb 16.2 (14.0-18.0) g/dl Hct 47 (42-52) % MCV 86 (80-94) fL MCH 30 (27-31) pg MCHC 35 (31-36) g/dl RDW 16 H (10.5-15) % Plt Count 266 (150-450) 10^3/ul MPV 8.8 (7.4-10.4) um3 Neut % (Auto) 71.0 (38-83) % Lymph % (Auto) 21.0 L (25-47) % [place] % (Auto) 6.0 (0-7) % Eos % (Auto) 1.2 (0-6) % Baso % (Auto) 0.8 (0-2) % Absolute Neuts (auto) 6.5 (1.5-7.7) 10^3/ul Absolute Lymphs (auto) 1.9 (1.0-4.8) 10^3/ul Absolute Monos (auto) 0.6 (0-0.8) 10^3/ul Absolute Eos (auto) 0.1 (0-0.6) 10^3/ul Absolute Basos (auto) 0.1 (0-0.2) 10^3/ul Absolute Nucleated RBC 0 10^3/ul Nucleated RBC % 0.1 Sodium 129 L (135-145) mmol/L Potassium 4.1 (3.5-5.0) mmol/L Chloride 91 L (101-111) mmol/L Carbon Dioxide 25 (22-32) mmol/L Anion Gap 13 H (2-11) mmol/L BUN 12 (6-24) mg/dL Creatinine 0.77 (0.67-1.17) mg/dL Est GFR ( Amer) 134.7 (>60) Est GFR (Non-Af Amer) 111.3 (>60) BUN/Creatinine Ratio 15.6 (8-20) Glucose Pending Calcium 9.5 (8.6-10.3) mg/dL Total Bilirubin 0.40 (0.2-1.0) mg/dL AST 17 (13-39) U/L ALT 22 (7-52) U/L Alkaline Phosphatase 154 H (34-104) U/L C-React Prot High Sens 7.88 H (<2.00) mg/L Total Protein 7.4 (6.4-8.9) g/dL Albumin 4.0 (3.2-5.2) g/dL Globulin 3.4 (2-4) g/dL Albumin/Globulin Ratio 1.2 (1-3) Amylase 19 L (29-103) U/L Lipase 46 (11.0-82.0) U/L Result Diagrams: 03/31/18 17:57 03/31/18 17:57 Lab Statement: Any lab studies that have been ordered have been reviewed, and results considered in the medical decision making process. - CT No standard instances CT Interpretation: Positive (See Comments) CT Interpretation Completed By: Radiologist - Acute interstitial edematous pancreatitis. Modified CT severity index equals 2. 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 Abdominal Pain Fem Course/Dx - Course Course Of Treatment: During the course of treatment, the patient is evaluated for chronic pancreatitis. He states every episode of his pancreatitis results in LUQ pain normally radiating over into the left mid back. On physical examination, there is discrete tenderness to light palpation over the LUQ. Chronic pancreatitis has stemmed from EtOH use in the past. Never been diagnosed with gallstones. There is no abdominal distention. No scleral icterus. Denies any fever or breathing difficulties. No signs of ecchymotic discoloration in the periumbilical region or into the flank. Despite these negative findings with a low risk for pancreatic necrosis, CT abdomen and pelvis obtained due to all other chronic findings. No xanthomas present. Morphine and zofran given in ED. This did not control his pain and Dilaudid 1 mg given. CTA obtained which shows a splenic infarction, however patient endorses this was the same findings as his previous CT in [facility] last month. He had spoken to surgeons in [facility] who decided they did not want to remove the spleen. He continues to be in pain and another 1 mg Dilaudid is given. Patient is requesting discharge. He states he has a good close follow-up with her physician, Dr. Olvera in the clinic this week as well as an appointment in [facility] on . I've agreed to give him 3 days of his at home Dilaudid medication as long as he has close follow-up. BG is elevated at 651 and his at home doses of Lantus and Humalog are given which decreased to 481. He states he hovers between 300-400 normally. He will continue his at home evening dose medication. He will be discharged with acute pancreatitis and splenic infarction. - Diagnoses Differential Diagnosis/HQI/PQRI: Ischemic Bowel, Other - Pancreatitis, pancreatic necrosis, splenic infarction Provider Diagnoses: Splenic infarction, Pancreatitis Discharge - Sign-Out/Discharge Documenting (check all that apply): Patient Departure - Discharge Plan Condition: Stable Disposition: HOME Prescriptions: HYDROmorphone TAB* [Dilaudid TAB*] 4 mg PO Q4H PRN #18 tab MDD 6 PRN Reason: Pain Referrals: Don Heller MD [Primary Care Provider] - Additional Instructions: Please follow up with Conor on as scheduled Follow up with Dr. Olvera as scheduled Dilaudid 4mg up to 6 times daily as needed for pain Return to the ED for any worsening or changing symptoms - Billing Disposition and Condition Condition: STABLE Disposition: Home
[2018-03-31] MEDS ORDERED: HYDROmorphone INJ* 2 MG/ML CARPUJECT SYRINGE IV SLOW PU ONE ×2 (18:48→20:46)
[2018-03-31] MEDS ORDERED: Insulin REGULAR(*) 1 UNITS UNIT IV PUSH ONE (18:51)
[2018-03-31] MEDS ORDERED: Iodixanol* (CONTRAST) 320 MG/ML 100 ML SDV IV ONE (19:14)
[2018-03-31] MEDS ORDERED: Insulin GLARGINE(*) 1 UNITS UNIT SUBCUT ONE (19:28)
--- NOTE | 2018-03-31 20:58 | RAD ---
EXAM: CT Abdomen and Pelvis With Intravenous Contrast CLINICAL HISTORY: 42 years old, male; Pain; Abdominal pain; Epigastric; Prior surgery; Surgery date: 6+ months; Additional info: Epigastric pain, R/O pancreatic necrosis HX of pancreatitis TECHNIQUE: Axial computed tomography images of the abdomen and pelvis with intravenous contrast. All CT scans at this facility use at least one of these dose optimization techniques: automated exposure control; mA and/or kV adjustment per patient size (includes targeted exams where dose is matched to clinical indication); or iterative reconstruction. Coronal and sagittal reformatted images were created and reviewed. CONTRAST: 100 mL of VISIPAQUE 320 administered intravenously. COMPARISON: A/P W CT ABD/PEL W 12/24/2017 2:56 AM FINDINGS: Lung bases: Normal. No mass. No consolidation. ABDOMEN: Liver: Normal. No masses. Portal and hepatic veins are patent. Gallbladder and bile ducts: Normal. No radiopaque calculi. No ductal dilation. Pancreas: Previously seen gas containing collection within the pancreatic bed has resolved with atrophy of the pancreatic tail. Mild stranding around the pancreatic head which involves the adjacent duodenum and extends into the lesser sac. No main ductal dilation or peripancreatic encapsulated fluid collections. Spleen: Interval infarction of most of the spleen which is new compared to prior study. Adrenals: Normal. No mass. Kidneys and ureters: Simple renal cyst left inferior pole measures 2 cm unchanged prior study. No calculi or pelvocaliectasis. Stomach and bowel: Incompletely distended grossly normal stomach. Normal caliber small bowel. No colonic masses or segmental wall thickening. PELVIS: Appendix: No dilation or periappendiceal inflammation. Bladder: Thin-walled bladder with no focal nodularity, perivesicular stranding, or calcifications. Reproductive: Normal sized prostate. Normal seminal vesicles. ABDOMEN and PELVIS: Intraperitoneal space: Normal. No pneumoperitoneum. No ascities. Bones/joints: No fractures. No suspicious bone lesions. Soft tissues: Normal. No hernias. Vasculature: Normal caliber aorta with no evidence of dissection or rupture. Chronic occlusion of the splenic vein. Small perigastric collaterals are again seen. Patent IVC. Circumaortic left renal vein. Lymph nodes: Normal. No enlarged lymph nodes. IMPRESSION: 1. Acute interstitial edematous pancreatitis. Modified CT severity index = 2. 2. 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
[2018-03-31] MEDS ORDERED: HYDROmorphone INJ1* 1 MG/ML SYRINGE ONE (21:14)
[2018-03-31 22:31] VITALS: BP 118/86
== END 2018-03-31 22:29 | disposition home or self-care (01) ==
LOC: ED 17:33
DX: D73.5 Infarction of spleen (principal); K85.90 Acute pancreatitis without necrosis or infection, unspecified; Z88.6 Allergy status to analgesic agent; Z88.5 Allergy status to narcotic agent; F17.210 Nicotine dependence, cigarettes, uncomplicated
CPT/HCPCS: 36415; 74177; 80053; 82150; 82947; 83690; 85025; 86141; 96361; 96372; 96374; 96375; 96376; 99282; J1170; J2270; J2405; Q9967

== ENCOUNTER 2018-04-03 19:22 | Emergency (ER) | payer OTHER ==
[2018-04-03] MEDS ORDERED: NS 0.9% 1000 ML* 1,000 ML IV ONE ×2 (19:29→19:54)
[2018-04-03] MEDS ORDERED: HYDROmorphone INJ* 2 MG/ML CARPUJECT SYRINGE IV SLOW PU ONE (19:54)
[2018-04-03] MEDS ORDERED: Ondansetron INJ* 2 MG/ML VIAL IV ONE (19:55)
[2018-04-03 20:09] LABS: ABS Basophils 0.1 10^3/ul (0-0.2); ABS Eosinophils 0.1 10^3/ul (0-0.6); ABS Lymphocytes 2.2 10^3/ul (1.0-4.8); ABS Monocytes 0.6 10^3/ul (0-0.8); ABS Neutrophils 6.3 10^3/ul (1.5-7.7); ABS Nucleated RBC 0 10^3/ul; Eosinophil % 1.4 % (0-6); Hematocrit 47 % (42-52); Hemoglobin 16.5 g/dl (14.0-18.0); Lymphocyte % 23.8 % (25-47); Mean Corpuscular HGB Conc 35 g/dl (31-36); Mean Corpuscular Hemoglobin 31 pg (27-31); Mean Corpuscular Volume 87 fL (80-94); Nucleated Red Blood Cells % 0.2; Platelet Count 250 10^3/ul (150-450); Red Blood Count 5.37 10^6/ul (4.00-5.40); Red Cell Distribution Width 16 % (10.5-15); White Blood Count 9.3 10^3/ul (3.5-10.8)
[2018-04-03 20:14] LABS: INR 0.93 (0.77-1.02)
--- NOTE | 2018-04-03 20:20 | ED ---
Abdominal Pain/Male - HPI Summary HPI Summary: Patient is a 42 y/o M w/ c/o LUQ pain onsetting this morning. He was seen at [facility] three days ago and has returned due to pain exacerbation today. Patient has been having bowel movements normally, believes he has a fever. Also notes N/ V/D and dizziness. Prescribed pain medication has provided no relief. Visit from 03/31/18 showed normal lipase, CT scan revealed necrosis of pancreas and infection of spleen. Patient reported that this is not acute. He sees a GI doctor at [facility] and reports that he has an appointment with doctor tomorrow. Patient has high glucose level due to partial removal of pancreas; he is a former heavy drinker. On triage, pain is rated 10/10, nothing is noted to aggravate/alleviate Sx, and he states he took 4 mg Dilaudid at 0830 today. PMHx of chronic pancreatitis. - History of Current Complaint Chief Complaint: EDAbdPain Stated Complaint: ABD PAIN Time Seen by Provider: 04/03/18 19:43 Hx Obtained From: Patient Onset/Duration: Lasting Days - onset this morning, Still Present Severity Currently: Severe - 10/10 Pain Intensity: 10 Pain Scale Used: 0-10 Numeric - 10/10 Location: Discrete At: LUQ Aggravating Factor(s): Nothing Alleviating Factor(s): Nothing Associated Signs And Symptoms: Positive: Fever, Nausea, Vomiting, Diarrhea, Other - dizziness. Negative: Constipation - Allergies/Home Medications Allergies/Adverse Reactions: Allergies Allergy/AdvReac Type Severity Reaction Status Date / Time acetaminophen [From Tylenol] AdvReac Intermediate GI Upset Verified 04/03/18 19: 28 codeine AdvReac Intermediate GI Upset Verified 04/03/18 19:28 ibuprofen AdvReac Intermediate GI Upset Verified 04/03/18 19:28 PMH/Surg Hx/FS Hx/Imm Hx Endocrine/Hematology History: Reports: Hx Diabetes, Other Endocrine/ Hematological Disorders - pancreatitis Denies: Hx Thyroid Disease Cardiovascular History: Reports: Hx Hypercholesterolemia Denies: Hx Congestive Heart Failure, Hx Hypertension Respiratory History: Denies: Hx Asthma, Hx Chronic Obstructive Pulmonary Disease (COPD) GI History: Reports: Hx Gastroesophageal Reflux Disease Denies: Hx Ulcer, Other GI Disorders - Pancreatitis, chronic History: Denies: Hx Dialysis, Hx Renal Disease Sensory History: Denies: Hx Cataracts, Hx Contacts or Glasses, Hx Eye Injury, Hx Eye Prosthesis, Hx Glaucoma, Hx Legally Blind, Hx Macular Degeneration, Hx Vision Problem, Hx Deafness, Hx Hearing Aid, Hx Hearing Problem, Other Sensory Impairments Opthamlomology History: Denies: Hx Cataracts, Hx Contacts or Glasses, Hx Eye Injury, Hx Eye Prosthesis, Hx Glaucoma, Hx Legally Blind, Hx Macular Degeneration, Hx Vision Problem, Other Sensory Impairments Neurological History: Denies: Hx Dementia, Hx Developmental Delay, Hx Headaches, Hx Migraine, Hx Nerve Disease, Hx Seizures, Hx Spinal Cord Injury, Hx Transient Ischemic Attacks (TIA), Other Neuro Impairments/Disorders Psychiatric History: Reports: Hx Depression - Surgical History Surgery Procedure, Year, and Place: skin grafting at 18 months of age on forehead, PEICE OF PANCREAS REMOVED 08/2014 @ [place], [place] W/A DRAIN IN PLACE Hx Anesthesia Reactions: No - Immunization History Date of Tetanus Vaccine: utd Date of Influenza Vaccine: fall 2016 Infectious Disease History: No Infectious Disease History: Denies: Hx Clostridium Difficile, Hx Hepatitis, Hx Human Immunodeficiency Virus (HIV), Hx of Known/Suspected MRSA, Hx Shingles, Hx Tuberculosis, Traveled Outside the [place] in Last 30 Days - Family History Known Family History: Positive: Other - Familial hypercholesterolemia - Social History Alcohol Use: None Hx Substance Use: Yes Substance Use Type: Reports: None Substance Use Comment - Amount & Last Used: Marijuana used occasionally to increase appetite and treat pain Hx Tobacco Use: Yes Smoking Status (MU): Light Every Day Tobacco Smoker Type: Cigarettes Amount Used/How Often: 1/2 ppd Have You Smoked in the Last Year: Yes Review of Systems Positive: Fever Positive: Abdominal Pain - LUQ, Vomiting, Diarrhea, Nausea, Other - NEGATIVE: constipation Neurological: Other - POSITIVE: dizziness All Other Systems Reviewed And Are Negative: Yes Physical Exam - Summary Physical Exam Summary: Appearance: Well appearing, no pain distress Skin: warm, dry, reflects adequate perfusion; large skin graft on forehead. Head/face: normal Eyes: EOMI, ZAINAB ENT: normal Neck: supple, non-tender Respiratory: CTA, breath sounds present Cardiovascular: RRR, pulses symmetrical Abdomen: midline abdominal scar, diffuse abdominal tenderness. Diffuse guarding , no rebound. No other abnormal findings noted. Bowel Sounds: present and normal Musculoskeletal: normal, strength/ROM intact Neuro: normal, sensory motor intact, A&Ox3 Triage Information Reviewed: Yes Vital Signs On Initial Exam: Initial Vitals Temp Pulse Resp BP Pulse Ox 98.8 F 77 17 131/86 96 04/03/18 19:26 04/03/18 19:26 04/03/18 19:26 04/03/18 19:26 04/03/18 19:26 Vital Signs Reviewed: Yes Diagnostics - Vital Signs Vital Signs Temp Pulse Resp BP Pulse Ox 04/03/18 20:13 20 04/03/18 19:26 98.8 F 77 17 131/86 96 - Laboratory Lab Results: Lab Results 04/03/18 04/03/18 Range/Units 19:56 19:56 WBC 9.3 (3.5-10.8) 10^3/ul RBC 5.37 (4.00-5.40) 10^6/ul Hgb 16.5 (14.0-18.0) g/dl Hct 47 (42-52) % MCV 87 (80-94) fL MCH 31 (27-31) pg MCHC 35 (31-36) g/dl RDW 16 H (10.5-15) % Plt Count 250 (150-450) 10^3/ul MPV 9.0 (7.4-10.4) um3 Neut % (Auto) 67.3 (38-83) % Lymph % (Auto) 23.8 L (25-47) % [place] % (Auto) 6.6 (0-7) % Eos % (Auto) 1.4 (0-6) % Baso % (Auto) 0.9 (0-2) % Absolute Neuts (auto) 6.3 (1.5-7.7) 10^3/ul Absolute Lymphs (auto) 2.2 (1.0-4.8) 10^3/ul Absolute Monos (auto) 0.6 (0-0.8) 10^3/ul Absolute Eos (auto) 0.1 (0-0.6) 10^3/ul Absolute Basos (auto) 0.1 (0-0.2) 10^3/ul Absolute Nucleated RBC 0 10^3/ul Nucleated RBC % 0.2 INR (Anticoag Therapy) 0.93 (0.77-1.02) Result Diagrams: 04/03/18 19:56 04/03/18 21:21 Lab Statement: Any lab studies that have been ordered have been reviewed, and results considered in the medical decision making process. - EKG 1932 Cardiac Rate: NL - rate of 81 bpm EKG Rhythm: Sinus Rhythm ST Segment: Normal EKG Interpretation: normal axis, normal intervals Re-Evaluation - Re-Evaluation First Eval Re-Evaluation Time: 20:55 Comment: Discussed patient's Hx of care at [facility] further Second Eval Re-Evaluation Time: 21:33 Change: Improved Comment: Patient is refusing further treatment and wants to be discharged to home. He will be discharged and follow up with scheduled GI appointment tomorrow. Abdominal Pain Fem Course/Dx - Course Course Of Treatment: Patient presents with recurring abdominal pain nausea vomiting and diarrhea. He has no pancreatic function left and a known splenic infarction. Records were obtained from [facility] which showed the same. He also recently had a celiac ganglion block performed. The other possibility here besides recurrent chronic pain is opiate withdrawal. The patient reports that he is not out of his opiates however. I initially dosed him with 2 mg of Dilaudid IV and he states that this did nothing. I was going to give him ketamine, Benadryl however he decided that he wanted to leave in the interim. He did do the same here in the most recent ER visit this week. He does have schedule follow-up with gastroenterology at [facility] tomorrow. - Diagnoses Differential Diagnosis/HQI/PQRI: Bowel Obstruction, Constipation, Pancreatitis, Other - Opiate withdrawal Provider Diagnoses: Chronic abdominal pain, Hyperglycemia Discharge - Sign-Out/Discharge Documenting (check all that apply): Patient Departure - discharge - Discharge Plan Condition: Improved Disposition: HOME Patient Education Materials: Chronic Abdominal Pain (ED) Referrals: Don Heller MD [Primary Care Provider] - Additional Instructions: Follow-up tomorrow as scheduled at your gastroenterology appointment at [facility].. Resume your outpatient medications. Return with uncontrolled blood sugars, uncontrolled pain, worse, new symptoms or other concerns. - Billing Disposition and Condition Condition: IMPROVED Disposition: Home - Attestation Statements Document Initiated by Scribe: Yes Documenting Scribe: Scott Causey Provider For Whom Scribe is Documenting (Include Credential): Vineet Duckworth MD Scribe Attestation: IScott, scribed for Vineet Duckworth MD on 04/04/18 at 0618. Scribe Documentation Reviewed: Yes Provider Attestation: The documentation as recorded by the scribe, Scott Causey accurately reflects the service I personally performed and the decisions made by me, Vineet Duckworth MD
[2018-04-03 20:36] LABS: EGFR Non-African American 126.4 (>60)
[2018-04-03] MEDS ORDERED: Dextrose 50% Syringe 50 ML* 25 GM/50 ML SYRINGE IV PUSH PRN (20:38)
[2018-04-03] MEDS ORDERED: Insulin LISPRO* 1 UNITS UNIT SUBCUT ONE (20:38)
[2018-04-03] MEDS ORDERED: diPHENhydraMINE IV* 50 MG/ML 1 ml VIAL (BENADRYL) IV ONE (21:22)
[2018-04-03] MEDS: diPHENhydraMINE IV* 50 MG/ML 1 ml VIAL (BENADRYL) IV ONE (21:25)
[2018-04-03] MEDS: KETAMINE HCL* 50 MG/ML 10 ML VIAL IV ONE (21:26)
[2018-04-03] MEDS: NS 0.9% 1000 ML* 1,000 ML IV ONE (21:26)
[2018-04-03 21:35] LABS: Urine Appearance Clear; Urine Blood 1+ (Negative); Urine Color Straw; Urine Ketones 2+ (Negative); Urine Protein Negative (Negative); Urine Red Blood Cell Trace(0-2/hpf) (Absent); Urine Specific Gravity 1.031 (1.010-1.030); Urine Urobilinogen Negative (Negative); Urine White Blood Cell Absent (Absent)
[2018-04-03 22:41] VITALS: BP 0/0
[2018-04-04] MEDS: KETAMINE HCL* 50 MG/ML 10 ML VIAL IV ONE (00:18)
[2018-04-04] MEDS: NS 0.9% 1000 ML* 1,000 ML IV ONE (00:21)
[2018-04-04] MEDS: diPHENhydraMINE IV* 50 MG/ML 1 ml VIAL (BENADRYL) IV ONE (00:22)
== END 2018-04-03 21:55 | disposition home or self-care (01) ==
LOC: ED 19:22
DX: R10.12 Left upper quadrant pain (principal); G89.29 Other chronic pain; E11.65 Type 2 diabetes mellitus with hyperglycemia; K86.1 Other chronic pancreatitis; F17.210 Nicotine dependence, cigarettes, uncomplicated; Z88.5 Allergy status to narcotic agent; Z88.6 Allergy status to analgesic agent
CPT/HCPCS: 36415; 80053; 80320; 81003; 81015; 82140; 82977; 83605; 83690; 85025; 85610; 86140; 93005; 96361; 96374; 96375; 99282; G0480; J1170; J1200; J2405

== ENCOUNTER 2018-05-11 13:32 | Emergency (ER) | payer OTHER ==
--- OUTSIDE RECORDS SUMMARY | 2018-05-11 13:38 | XMS REPORT ---
:1975 External Reference #:[id number] Author Organization [facility] Address [address] [place] [address] [place] [address] Phone [phone] Care Team Providers Name Role Phone Michael Foreman M.D. 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 Payers Type Date Identification Numbers Payment Provider Subscriber Commercial Expires: Policy Number: [id number] [employer] Ryder Chinchilla 2018 Medicaid PayID: [id number] [place] [id number] Problems Date Description Provider Status Onset: 03/08/2018 Disorder of spleen Azael Olvera MD Active Onset: 03/08/2018 Type II diabetes mellitus uncontrolled Azael Olvera MD Active Onset: 03/08/2018 Pure hyperglyceridemia Azael Olvera MD Active Onset: 03/08/2018 Other chronic pancreatitis Azael Olvera MD Active Onset: 03/08/2018 Tobacco user Azael Olvera MD Active Onset: 03/08/2018 Mood disorder Azael Olvera MD Active Onset: 04/24/2018 Nausea and vomiting Azael Olvera MD Active Onset: 04/24/2018 Heartburn Azael Olvera MD Active Family History Date Family Member(s) Problem(s) Comments Father Diabetes Type II Mother due to Diabetes () Social History Type Date Description Comments Marital Status Lives With Occupation unemployed Cigarette Use Light tobacco smoker (10 or fewer cigarettes/day) ETOH Use Denies alcohol use Smoking Light tobacco smoker (10 or fewer cigarettes/day) Recreational Drug Use Regularly uses Marijuana for pain relief Daily Caffeine Consumes on average 12oz of soda occassional per day Exercise Type/Frequency Exercises regularly walk daily, 3-4 hours Allergies, Adverse Reactions, Alerts Date Description Reaction Status Severity Comments 03/08/2018 NKDA active Medications Medication Date Status Form Strength Qnty SIG Indications Ordering Provider Protonix 04/24/ Active Tablets 40mg 30tab Take 1 tab R12 Azael 2018 s daily MD Wade Phenergan 04/24/ Active Solution 25mg/ml 25ml 12.5mg R11.2 Azael 2017 Every 6 MD Wade hours as needed for nausea Hydromorphone 04/24/ Active Tablets 4mg 42tab Take 1 tab Azael HCL 2018 s every 4 MD Wade hours as needed for pain Humulin N 04/24/ Active Suspension 100Unit/M 10ml Use 20 E11.65 Rodrigo 2018 L units at MD Kalie bedtime Humulin R 04/24/ Active Solution 100Unit/M 20ml use 20 E11.65 Wallace 2018 L units three MD Kalie times daily with meals Pen Fowler 03/14/ Active Misc 32G X 6 100un 1 needle Magali 2017 mm its twice a day DO Braeden Gemfibrozil 03/14/ Active Tablets 600mg 60tab 1 tab twice Magali 2018 s a day DO Braeden Lancets 03/08/ Active Misc 30G 100un For use E11.65 Azael 2017 its with your MD Wade glucometer Lantus 03/08/ Active Solution 100Unit/M 10ml 30U twice a E11.65 Azael 2018 L jose MD Wade Humalog / Active Solution 100Unit/M sliding Unknown 0000 L scale. Vitamin D / Active 50,000Uni 1 once Unknown 0000 ts week Creon / Active Caps 80110 take 2 Unknown 0000 Part capsules with meals Gabapentin / Active Capsules 300mg 1 by mouth Unknown 0000 two times a day Zofran 03/08/ Hx Tablets 4mg 30tab pt states K86.1 Azael 2017 - s not MD Wade 04/23/ effective-- 2018 -take 1 tab every 6 hours as needed for vomiting. Hydromorphone / Hx Tablets 4mg 14tab 1 tab by Azael HCL 0000 - s mouth twice MD Wade 04/24/ daily as 2018 needed. Lantus / Hx Solution 100Unit/M 40 unit SQ Unknown 0000 - L daily 2017 Lovaza 00/ Hx Capsules 1gm pt not Unknown 0000 - taking--sandra two 2018 capsules by mouth twice a day Vital Signs Date Vital Result Comment 04/24/2018 Height 71 inches 5'11" Weight 173.00 lb w/ shoes Heart Rate 87 /min BP Systolic Sitting 117 mmHg BP Diastolic Sitting 81 mmHg BMI (Body Mass Index) 24.1 kg/m2 04/24/2018 Height 71 inches 5'11" Weight 173.00 lb Heart Rate 90 /min BP Systolic 121 mmHg BP Diastolic 81 mmHg Respiratory Rate 16 /min Body Temperature 98.4 F Pain Level 8 abd/ kidney O2 % BldC Oximetry 98 % BMI (Body Mass Index) 24.1 kg/m2 03/08/2018 Height 71 inches 5'11" Weight 182.00 lb Heart Rate 80 /min BP Systolic Sitting 132 mmHg BP Diastolic Sitting 87 mmHg Respiratory Rate 18 /min Body Temperature 98.3 F Pain Level 8 O2 % BldC Oximetry 98 % BMI (Body Mass Index) 25.4 kg/m2 Results Test Date Test Result H/L Range Note Laboratory test finding 04/24/2018 Glucose Random HI Ketones 1.1 Hemoglobin A1c >14.0 High 5-7 Laboratory test finding 03/08/2018 Procalcitonin <pending> Procedures Date CPT Code Description Status 07/10/2014 42502 EKG, Interpretation Only Completed 06/01/2014 85891 EKG, Interpretation Only Completed 05/31/2014 57275 EKG, Interpretation Only Completed Encounters Type Date Location Provider CPT E/M Dx Office Visit 03/08/2018 1:30p [facility] [place] [address] 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 D73.5 E11.65 F17.210 F06.31 Office Visit 12/25/2017 11:11a [facility]pc Klever Palomo, [address] K85.90 Hospitalists Lianna K86.1 E78.1 E11.9 Office Visit 12/24/2017 11:10a [facility] [address] K85.90 Hospitalists K86.1 E78.1 E11.9 Office Visit 06/22/2016 1:47p [facility],pc Preston Ernandez, 60367 K85.92 Hospitalists Lianna R10.9 E78.1 G89.29 Office Visit 06/21/2016 1:47p [facility],pc Preston Ernandez, 26612 K85.92 Hospitalists Lianna R10.9 E78.5 G89.29 Office Visit 06/20/2016 1:46p [facility], Jacquelyn Leahy, 37807 K85.92 Hospitalists D.ORylee R10.9 E78.1 Office Visit 05/30/2016 10:09a [facility], [place] [address] K85.90 Hospitalists E11.01 E78.1 Office Visit 05/29/2016 10:08a [facility], [place] [address] K85.90 Hospitalists E11.01 E78.1 Office Visit 05/28/2016 10:08a [facility], [address] K85.90 Assoc, Hospitalists Lianna E11.01 E78.1 Office Visit 05/27/2016 10:07a [facility], [address] E11.01 Assoc, Hospitalists Lianna E78.1 K85.90 Office Visit 05/26/2016 10:07a [facility], Michael Foreman M.D. 93843 K85.90 Hospitalists E11.01 E78.1 Office Visit 03/21/2016 12:38p [facility] [address]189 K85.9 Hospitalists Lianna E11.9 K86.1 Office Visit 03/20/2016 12:38p [facility] 15[address] K85.9 Hospitalists Lianna E11.9 K86.1 Z79.4 Office Visit 03/19/2016 12:37p [facility] 57787 K85.9 Hospitalists Lianna E11.9 K86.1 Z79.4 Office Visit 03/18/2016 12:37p [facility] 77448 K85.9 Hospitalists Lianna E11.9 K86.1 Z79.4 Office Visit 03/17/2016 12:36p [facility] [place] [facility], [address] K85.9 Assoc,pc Hospitalists M.DRylee E11.9 K86.1 Z79.4 Office Visit 07/14/2015 9:32a [facility]pc Linda Brown, 86536 K85.9 Hospitalists M.DRylee E87.1 E11.9 E78.1 Office Visit 07/13/2015 9:32a [facility]pc Linda Brown, 86419 K85.9 Hospitalists M.DRylee E87.1 E11.9 Office Visit 11/10/2014 8:41a [facility] [address] 577.0 Hospitalists 789.00 272.1 250.00 Office Visit 11/09/2014 8:41a [facility] [address] 577.0 Hospitalists 789.00 272.1 250.00 Office Visit 11/08/2014 8:41a [facility], Sugar Giron, [address]254 577.0 Hospitalists M.D. 789.00 250.00 272.1 Office Visit 11/07/2014 8:40a [facility],pc Lindailsa Brown, [address]30[address] 577.0 Hospitalists M.D. 789.00 272.1 250.00 Office Visit 07/15/2014 3:01p [facility],pc Klever Palomo, 12157 577.0 Hospitalists M.DRylee 577.1 577.2 272.1 Office Visit 07/14/2014 3:01p [facility],pc Sugar Giron, 23668 577.0 Hospitalists M.DRylee 577.1 577.2 272.1 Office Visit 07/13/2014 3:01p [facility], Sugar Giron, 78963 577.0 Hospitalists M.D. 577.1 577.2 272.1 Office Visit 07/12/2014 3:00p [facility], Sugar Giron, 12901 577.2 Hospitalists M.DRylee 577.1 577.0 272.1 Office Visit 07/11/2014 3:00p [facility],pc Michael Foreman M.D. 86631 577.0 Hospitalists 577.1 577.2 272.1 Office Visit 07/10/2014 2:59p [facility],pc Don LadyRylee Villalobos [address] 577.0 Hospitalists Lianna Kohli 577.1 577.2 272.1 Office Visit 06/27/2014 5:32p [place], [address] 789.00 Assoc,pc Hospitalsavannah Dsouza 787.01 564.00 577.2 Office Visit 06/01/2014 11:03a [facility],[place] [address] 577.0 Hospitalists 787.01 272.1 250.00 Office Visit 05/31/2014 11:03a [facility],[place] [address] 577.0 Hospitalists 272.1 787.01 250.00 Office Visit 05/18/2014 8:04p [facility],pc Michael Foreman M.D. 97023 577.0 Hospitalists 250.00 272.1 Plan of Care Future Appointment(s):05/21/2018 10:00 am - Rodrigo Jade MD at [facility]04/24/2018 - Rodrigo Jade MDK86.1 Other chronic odpzhunqxnckX88.1 Pure heayukkkglhocjcybT67.65 Type 2 diabetes mellitus with hyperglycemiaNew Medication:Humulin N 100 Unit/MLHumulin R 100 Unit/ MLInstructions:1. Start Humulin R 20 units three times daily with meals. 2. Start Humulin N 20 units at bedtime. 3.Check your blood glucose 4 times/day. 4. If your BG is more than 200 in the morning for 4 days in a row, increase all doses of insulin by 4 units. 5.
--- OUTSIDE RECORDS SUMMARY | 2018-05-11 13:38 | XMS REPORT ---
:1975 External Reference #:[id number] Author Organization [facility] Address [address] [place] [place] [address] [place] [address] Phone [phone] Care Team Providers Name Role Phone Michael Foreman M.D. 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 Payers Type Date Identification Numbers Payment Provider Subscriber Commercial Expires: Policy Number: [id number] [employer] Ryder Chinchilla 2018 Medicaid PayID: [id number] [place] [address] Problems Date Description Provider Status Onset: 03/08/2018 Disorder of spleen Azael Olvera MD Active Onset: 03/08/2018 Type II diabetes mellitus uncontrolled Azael Olvera MD Active Onset: 03/08/2018 Pure hyperglyceridemia Azael Olvera MD Active Onset: 03/08/2018 Other chronic pancreatitis Azael Olvera MD Active Onset: 03/08/2018 Tobacco user Azael Olvera MD Active Onset: 03/08/2018 Mood disorder Azael Olvera MD Active Social History Type Date Description Comments Smoking Light tobacco smoker (10 or fewer cigarettes/day) Allergies, Adverse Reactions, Alerts Date Description Reaction Status Severity Comments 03/08/2018 NKDA active Medications Medication Date Status Form Strength Qnty SIG Indications Ordering Provider Protonix 04/24/ Active Tablets DR 40mg 30tab Take 1 tab R12 Azael 2018 s daily MD Wade Pen Herriman 03/14/ Active Misc 32G X 6 mm 100un 1 needle Magali 2018 its twice a day DO Braeden Gemfibrozil 03/14/ Active Tablets 600mg 60tab 1 tab twice Magali 2018 s a day Senner, DO Lancets 08/03/ Active Misc 30G 100un For use E11.65 Azael 2017 its with your MD Wade glucometer Lantus 03/08/ Active Solution 100Unit/ML 10ml 30U twice a E11.65 2017 jose Olvera MD Zofran 03/08/ Active Tablets 4mg 30tab pt states K86.1 Azael 2017 s not MD Wade effective-- -take 1 tab every 6 hours as needed for vomiting. Hydromorphone / Active Tablets 4mg 14tab 1 tab by Azael HCL 0000 s mouth twice MD Wade daily as needed. Humalog / Active Solution 100Unit/ML sliding Unknown 0000 scale. Lovaza / Active Capsules 1gm pt not Unknown 0000 taking--sandra e two capsules by mouth twice a day Vitamin D / Active 1 once Unknown 0000 week Creon / [place] [address] take 2 Unknown 0000 Part capsules with meals Gabapentin / Active Capsules 300mg 1 by mouth Unknown 0000 two times a day Lantus / Hx Solution 100Unit/ML 40 unit SQ Unknown 0000 - daily 2017 Vital Signs Date Vital Result Comment 04/24/2018 [...] Procedures Date CPT Code Description Status 07/10/2014 37753 EKG, Interpretation Only Completed 06/01/2014 77020 EKG, Interpretation Only Completed 05/31/2014 18243 EKG, Interpretation Only Completed Encounters Type Date Location Provider CPT E/M Dx Office Visit 03/08/2018 1:30p [facility] [place] [address] K86.1 [facility] D73.5 E11.65 F17.210 F06.31 Office Visit 12/25/2017 11:11a [facility]pc Klever Palomo, 633[address] K85.90 Hospitalists MLinda K86.1 E78.1 E11.9 Office Visit 12/24/2017 11:10a [facility],pc Georgia Maguire, [address]995 K85.90 Hospitalists K86.1 E78.1 E11.9 Office Visit 06/22/2016 1:47p [facility],pc Preston Ernandez, 95596 K85.92 Hospitalists M.DRylee R10.9 E78.1 G89.29 Office Visit 06/21/2016 1:47p [facility],pc Preston Ernandez, 80581 K85.92 Hospitalists M.DRylee R10.9 E78.5 G89.29 Office Visit 06/20/2016 1:46p [facility], Jacquelyn Leahy, [address]002 K85.92 Hospitalists D.ORylee R10.9 E78.1 Office Visit 05/30/2016 10:09a [facility], [place] [address] K85.90 Hospitalists E11.01 E78.1 Office Visit 05/29/2016 10:08a [facility], [place] [address] K85.90 Hospitalists E11.01 E78.1 Office Visit 05/28/2016 10:08a [facility] [place], [address] K85.90 Assoc,pc Hospitalists MLinda E11.01 E78.1 Office Visit 05/27/2016 10:07a [facility] Panchito Corona, 45247 E11.01 Assoc,pc Hospitalists MLinda E78.1 K85.90 Office Visit 05/26/2016 10:07a [facility] Michael Foreman M.D. 78906 K85.90 Hospitalists E11.01 E78.1 Office Visit 03/21/2016 12:38p [facility],pc Klever Palomo, [address] K85.9 Hospitalists MLinda E11.9 K86.1 Office Visit 03/20/2016 12:38p [facility] Klever Warwick, 511[address] K85.9 Hospitalists M.D. E11.9 K86.1 Z79.4 Office Visit 03/19/2016 12:37p [facility]pc Klever Warwick, 28173 K85.9 Hospitalists M.D. E11.9 K86.1 Z79.4 Office Visit 03/18/2016 12:37p [facility],pc Klever Warwick, [address]883 K85.9 Hospitalists M.D. E11.9 K86.1 Z79.4 Office Visit 03/17/2016 12:36p [facility], [address] K85.9 Assoc,pc Hospitalists M.D. E11.9 K86.1 Z79.4 Office Visit 07/14/2015 9:32a [facility],pc Linda Brown, [address]4861 K85.9 Hospitalists M.D. E87.1 E11.9 E78.1 Office Visit 07/13/2015 9:32a [facility],pc Linda Brown, [address]67 K85.9 Hospitalists M.D. E87.1 E11.9 Office Visit 11/10/2014 8:41a [facility], [place] [address] 577.0 Hospitalists 789.00 272.1 250.00 Office Visit 11/09/2014 8:41a [facility], [place] [address] 577.0 Hospitalists 789.00 272.1 250.00 Office Visit 11/08/2014 8:41a [facility],pc Sugar Giron, 56954 577.0 Hospitalists M.D. 789.00 250.00 272.1 Office Visit 11/07/2014 8:40a [facility], Linda Brown, [address]498 577.0 Hospitalists M.D. 789.00 272.1 250.00 Office Visit 07/15/2014 3:01p [facility],pc Klever Palomo, [address] 577.0 Hospitalists M.D. 577.1 577.2 272.1 Office Visit 07/14/2014 3:01p [facility],pc Sugar Whitehn, [address] 577.0 Hospitalists MLinda 577.1 577.2 272.1 Office Visit 07/13/2014 3:01p [facility],pc Sugar Whitehn, 40[address] 577.0 Hospitalists MLinda 577.1 577.2 272.1 Office Visit 07/12/2014 3:00p [facility],pc Sugar Giron, [address]270 577.2 Hospitalists MLinda 577.1 577.0 272.1 Office Visit 07/11/2014 [facility] Foreman M.D. 96421 577.0 Hospitalists 577.1 577.2 272.1 Office Visit 07/10/2014 2:59p [facility],pc Don Villalobos [address] 577.0 Hospitalists Lianna Kohli 577.1 577.2 272.1 Office Visit 06/27/2014 5:32[place] [facility] [address] 789.00 Assoc, Hospitalists M.DRylee 787.01 564.00 577.2 Office Visit 06/01/2014 11:03a [facility],[place] [address] 577.0 Hospitalists 787.01 272.1 250.00 Office Visit 05/31/2014 11[facility]03[facility] [address] 577.0 Hospitalists 272.1 787.01 250.00 Office Visit 05/18/2014 8:04p [facility],pc Michael Foreman M.D. 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
--- NOTE | 2018-05-11 14:10 | ED ---
Progress - Progress Note Progress Note: Dr. Donita MD walked into the room and the Pt refused to be seen by this provider. Pt is upset after I had asked him in last visit if his nausea, vomiting and diarrhea could be from opiate withdrawl syndrome. Discharge - Sign-Out/Discharge Documenting (check all that apply): Sign-Out Patient Signing out patient TO: Phillip Amos - Discharge Plan Condition: Stable Referrals: Don Heller MD [Primary Care Provider] - - Billing Disposition and Condition Condition: STABLE - Attestation Statements Document Initiated by Andra: Yes Documenting Scribe: Klever Heredia Provider For Whom Andra is Documenting (Include Credential): Dr. Vineet Duckworth MD Scribe Attestation: Klever Garcia scribed for Dr. Vineet Duckworth MD on 05/11/18 at 1419. Scribe Documentation Reviewed: Yes Provider Attestation: The documentation as recorded by the Klever miller accurately reflects the service I personally performed and the decisions made by me, Dr. Vineet Duckworth MD
[2018-05-11] MEDS ORDERED: NS 0.9% 1000 ML* 1,000 ML IV ONE (14:15)
--- NOTE | 2018-05-11 14:15 | ED ---
HPI Diabetic - HPI Summary HPI Summary: Patient is a 42 y/o M w/ c/o N/V, fatigue, abdominal pain, and recent rapid weight loss. PMHx of type 1 diabetes and chronic pancreatitis. He also reports Hx of gallbladder, spleen, and liver problems. Patient reports recent switch from Humalog and Lantus to Humulin N and R. He notes that BG is usually 200-300 with spikes to 400-500. Patient reports that he was seen in [place] for a surgical consult for a feeding tube. He states that he needs to get his blood sugars and body weight under control before other interventions are considered. Patients notes he take dilaudid and phenergan. However, he reports phenergan does not work. He reports that he is being seen by Dr. Olvera for his medical problems. On triage, pain is rated 8/10, pain medicine is noted to alleviate Sx , nothing is noted to aggravate Sx. Home medications and allergies are reviewed. - History Of Current Complaint Chief Complaint: EDDiabeticProb Time Seen by Provider: 05/11/18 13:42 Hx Obtained From: Patient Onset/Duration: Still Present Timing: Constant Severity Currently: Severe - 8/10 Character: Alert Aggravating: Nothing Alleviating: Medication - pain Associated Signs & Symptoms: Abdominal Pain, Nausea, Vomiting, Weight Loss - Allergies/Home Medications Allergies/Adverse Reactions: Allergies Allergy/AdvReac Type Severity Reaction Status Date / Time acetaminophen [From Tylenol] AdvReac Intermediate GI Upset Verified 05/11/18 13: 35 codeine AdvReac Intermediate GI Upset Verified 05/11/18 13:35 ibuprofen AdvReac Intermediate GI Upset Verified 05/11/18 13:35 PMH/Surg Hx/FS Hx/Imm Hx Endocrine/Hematology History: Reports: Hx Diabetes, Other Endocrine/ Hematological Disorders - pancreatitis Denies: Hx Thyroid Disease Cardiovascular History: Reports: Hx Hypercholesterolemia Denies: Hx Congestive Heart Failure, Hx Hypertension Respiratory History: Denies: Hx Asthma, Hx Chronic Obstructive Pulmonary Disease (COPD) GI History: Reports: Hx Gastroesophageal Reflux Disease, Other GI Disorders - Pancreatitis, chronic Denies: Hx Ulcer History: Denies: Hx Dialysis, Hx Renal Disease Sensory History: Denies: Hx Cataracts, Hx Contacts or Glasses, Hx Eye Injury, Hx Eye Prosthesis, Hx Glaucoma, Hx Legally Blind, Hx Macular Degeneration, Hx Vision Problem, Hx Deafness, Hx Hearing Aid, Hx Hearing Problem, Other Sensory Impairments Opthamlomology History: Denies: Hx Cataracts, Hx Contacts or Glasses, Hx Eye Injury, Hx Eye Prosthesis, Hx Glaucoma, Hx Legally Blind, Hx Macular Degeneration, Hx Vision Problem, Other Sensory Impairments Neurological History: Denies: Hx Dementia, Hx Developmental Delay, Hx Headaches, Hx Migraine, Hx Nerve Disease, Hx Seizures, Hx Spinal Cord Injury, Hx Transient Ischemic Attacks (TIA), Other Neuro Impairments/Disorders Psychiatric History: Reports: Hx Depression - Surgical History Surgery Procedure, Year, and Place: skin grafting at 18 months of age on forehead, PEICE OF PANCREAS REMOVED 08/2014 @ [place], [place] W/A DRAIN IN PLACE Hx Anesthesia Reactions: No - Immunization History Date of Tetanus Vaccine: utd Date of Influenza Vaccine: fall 2016 Infectious Disease History: No Infectious Disease History: Denies: Hx Clostridium Difficile, Hx Hepatitis, Hx Human Immunodeficiency Virus (HIV), Hx of Known/Suspected MRSA, Hx Shingles, Hx Tuberculosis, Traveled Outside the [place] in Last 30 Days - Family History Known Family History: Positive: Other - Familial hypercholesterolemia - Social History Alcohol Use: None Hx Substance Use: Yes Substance Use Type: Reports: None Substance Use Comment - Amount & Last Used: Marijuana used occasionally to increase appetite and treat pain Hx Tobacco Use: Yes Smoking Status (MU): Light Every Day Tobacco Smoker Type: Cigarettes Amount Used/How Often: 1/2 ppd Have You Smoked in the Last Year: Yes Review of Systems Positive: Fatigue, Other - recent rapid weight loss Positive: Abdominal Pain, Vomiting, Nausea All Other Systems Reviewed And Are Negative: Yes Physical Exam - Summary Physical Exam Summary: Appearance: The patient is well-nourished in no acute distress and in no acute pain. Skin: The skin is warm and dry and skin color reflects adequate perfusion. HEENT: The head is normocephalic and atraumatic. The pupils are equal and reactive. The conjunctivae are clear and without drainage. Nares are patent and without drainage. Mouth reveals dry mucous membranes and the throat is without erythema and exudate. The external ears are intact. The ear canals are patent and without drainage. The tympanic membranes are intact. Neck: The neck is supple with full range of motion and non-tender. There are no carotid bruits. There is no neck vein distension. Respiratory: Chest is non-tender. Lungs are clear to auscultation and breath sounds are symmetrical and equal. Cardiovascular: Heart is regular rate and rhythm. There is no murmur or rub auscultated. There is no peripheral edema and pulses are symmetrical and equal. Abdomen: The abdomen is soft. Epigastric tenderness is noted. There are normal bowel sounds heard in all four quadrants and there is no organomegaly palpated. Musculoskeletal: There is no back tenderness noted. Extremities are non-tender with full range of motion. There is good capillary refill. There is no peripheral edema or calf tenderness elicited. Neurological: Patient is alert and oriented to person, place and time. The patient has symmetrical motor strength in all four extremities. Cranial nerves are grossly intact. Deep tendon reflexes are symmetrical and equal in all four extremities. Psychiatric: The patient has an appropriate affect and does not exhibit any anxiety or depression. Triage Information Reviewed: Yes Vital Signs On Initial Exam: Initial Vitals Temp Pulse Resp BP Pulse Ox 96.3 F 88 18 140/108 100 05/11/18 13:36 05/11/18 13:36 05/11/18 13:36 05/11/18 13:36 05/11/18 13:36 Vital Signs Reviewed: Yes Diagnostics - Vital Signs Vital Signs Temp Pulse Resp BP Pulse Ox 05/11/18 13:36 96.3 F 88 18 140/108 100 - Laboratory Result Diagrams: 05/11/18 14:35 05/11/18 14:35 Lab Statement: Any lab studies that have been ordered have been reviewed, and results considered in the medical decision making process. - Ultrasound No standard instances Ultrasound Interpretation: No Acute Changes Ultrasound Interpretation Completed By: Radiologist - GALLBLADDER IMPRESSION: # . Negative for gallbladder pathology. #. While the common bile duct could not be visualized there is no evidence for intrahepatic biliary dilatation. #. The pancreas is obscured secondary to bowel gas and body habitus limiting assessment. #. Negative for ascites. This report was reviewed by ed physician. Re-Evaluation - Re-Evaluation First Eval Re-Evaluation Time: 17:50 Change: Improved Comment: Patient reports some relief in Sx, but notes Sx are still present. Discussed options of patient, which is either to be discharged or to be admitted to hospital. Patient does not want either of these things. He wants to go to [place] for feeding tube procedure instead. Patient agrees to stay while hospitalist is consulted. Second Eval Re-Evaluation Time: 18:23 Comment: Patient wants discharge papers and does not want to wait for imaging test. He will be discharged to home. Diabetic Course/Dx - Course Course Of Treatment: Mr. Chinchilla presented to the emergency department with a concern that he is unable to eat for the last 4-5 days and has lost 5-6 pounds. He has a history of chronic pancreatitis and was admitted last month with an acute exacerbation. CT at that time showed no abscess or pseudocyst. He has seen Dr. Olvera at [facility] and has been referred to [place]. They are reportedly considering a surgical procedure for him however have recommended that he needs to get his blood sugars under control and to get his weight up. They're considering a feeding tube. He takes by mouth Dilaudid at home as well as Phenergan. On arrival here he seemed to be in moderate distress and was mildly hypertensive. Labs were obtained and he was given pain medication and Reglan for nausea. He did state that he felt a little bit improved but was concerned about going home. His laboratory work was reasonable with a mild hyponatremia and hypochloremia. His alkaline phosphatase has been trending upward and is nearly 400 at this point and an ultrasound was obtained of his gallbladder which was within normal limits. I spoke with Dr. Dubois about admission but he refused. I spoke with to see if he had anything to offer. He didn't think that the patient needed to be transferred or admitted recommended a KUB to see if he was constipated because the sometimes aggravates the situation and the patient is taking a lot of narcotics. The patient became frustrated because I had told him his gallbladder was okay on ultrasound and he previously had been told his gallbladder was . Ultimately he demanded to be discharged to go to [place]. - Diagnoses Provider Diagnoses: Chronic abdominal pain - Physician Notifications Discussed Care Of Patient With: Jovany Dubois Time Discussed With Above Provider: 18:08 Instructed by Provider To: Other - Patient's case was discussed with Dr. Dubois at 1808. Dr. Dubois wants a GI consult before making the decision to admit patient. 1823 -- Dr. Ferguson was consulted at 1824 on patient's case. He states there is no reason for admission at present, recommends further imaging. Discharge - Sign-Out/Discharge Documenting (check all that apply): Patient Departure - discharge - Discharge Plan Condition: Stable Disposition: HOME Patient Education Materials: Chronic Abdominal Pain (ED) Referrals: Azael Olvera MD [Medical Doctor] - 2 Days Additional Instructions: RETURN TO ED FOR ANY NEW OR WORSENING SYMPTOMS. FOLLOW UP WITH DR. OLVERA SOON POSSIBLE. - Billing Disposition and Condition Condition: STABLE Disposition: Home - Attestation Statements Document Initiated by Scribe: Yes Documenting Scribe: Scott Causey Provider For Whom Andra is Documenting (Include Credential): Phillip Amos MD Scribe Attestation: Scott Garcia , scribed for Phillip Amos MD on 05/11/18 at 2045. Scribe Documentation Reviewed: Yes Provider Attestation: The documentation as recorded by the Scott miller accurately reflects the service I personally performed and the decisions made by me, Phillip Amos MD
[2018-05-11 14:43] LABS: ABS Basophils 0.2 10^3/ul (0-0.2); ABS Eosinophils 0.1 10^3/ul (0-0.6); ABS Lymphocytes 1.3 10^3/ul (1.0-4.8); ABS Monocytes 0.6 10^3/ul (0-0.8); ABS Neutrophils 5.7 10^3/ul (1.5-7.7); ABS Nucleated RBC 0 10^3/ul; Eosinophil % 1.4 % (0-6); Hematocrit 47 % (42-52); Hemoglobin 16.3 g/dl (14.0-18.0); Lymphocyte % 16.1 % (25-47); Mean Corpuscular HGB Conc 35 g/dl (31-36); Mean Corpuscular Hemoglobin 30 pg (27-31); Mean Corpuscular Volume 87 fL (80-94); Mean Platelet Volume 8.4 um3 (7.4-10.4); Nucleated Red Blood Cells % 0; Platelet Count 316 10^3/ul (150-450); Red Blood Count 5.38 10^6/ul (4.00-5.40); Red Cell Distribution Width 15 % (10.5-15); White Blood Count 7.8 10^3/ul (3.5-10.8)
[2018-05-11 15:02] LABS: EGFR Non-African American 124.3 (>60)
[2018-05-11] MEDS ORDERED: Metoclopramide IV* 5 MG/ML 2 ML VIAL IV ONE (15:43)
[2018-05-11] MEDS ORDERED: HYDROmorphone INJ* 2 MG/ML CARPUJECT SYRINGE IV SLOW PU ONE (15:43)
[2018-05-11] MEDS ORDERED: HYDROmorphone INJ1* 1 MG/ML SYRINGE ONE (16:00)
--- NOTE | 2018-05-11 16:29 | RAD ---
Indication: RIGHT upper quadrant/epigastric pain. Comparison: March 31, 2018 CT. Technique: RIGHT upper quadrant ultrasound. Report: Appropriate direction flow documented in the portal and hepatic veins. 17.5 cm liver is normal in echogenicity. Negative for focal hepatic lesions. Negative for intrahepatic biliary dilatation. The common bile duct could not be visualized with bowel gas limiting the acoustic window. Adequately distended gallbladder with normal 2.7 mm wall is without pathologic finding. Negative for sonographic Lewis's sign. The pancreas is obscured secondary to bowel gas and body habitus limiting assessment. Negative for ascites. 11.9 cm RIGHT kidney is unremarkable. IMPRESSION: #. Negative for gallbladder pathology. #. While the common bile duct could not be visualized there is no evidence for intrahepatic biliary dilatation. #. The pancreas is obscured secondary to bowel gas and body habitus limiting assessment. #. Negative for ascites.
[2018-05-11 18:58] VITALS: BP 0/0
== END 2018-05-11 18:56 | disposition home or self-care (01) ==
LOC: ED 13:32
DX: R10.11 Right upper quadrant pain (principal); R11.2 Nausea with vomiting, unspecified; R19.7 Diarrhea, unspecified; Z53.21 Procedure and treatment not carried out due to patient leaving prior to being seen by health care provider; E10.9 Type 1 diabetes mellitus without complications; Z79.4 Long term (current) use of insulin; K86.1 Other chronic pancreatitis; E78.00 Pure hypercholesterolemia, unspecified; K21.9 Gastro-esophageal reflux disease without esophagitis; F17.210 Nicotine dependence, cigarettes, uncomplicated; G89.29 Other chronic pain
CPT/HCPCS: 36415; 76705; 80053; 83605; 83690; 85025; 86140; 96361; 96374; 96375; 99283; J1170; J2765

== ENCOUNTER → 2018-05-14 11:59 | Emergency (ER) | payer OTHER ==
[~2018-05-14 11:59] MED LIST: HYDROmorphone INJ* 2 MG/ML CARPUJECT SYRINGE IV SLOW PU ONE; HYDROmorphone INJ1* 1 MG/ML SYRINGE ONE; Insulin REGULAR(*) 1 UNITS UNIT IV PUSH ONE; Insulin REGULAR(*) 1 UNITS UNIT ONE; Iodixanol* (CONTRAST) 320 MG/ML 100 ML SDV IV ONE; NS 0.9% 1000 ML* 1,000 ML IV ONE; NS 0.9% 1000 ML* 2,000 ML IV ONE; Ondansetron INJ* 2 MG/ML VIAL IV ONE
[2018-05-14 13:23] LABS: ABS Basophils 0.1 10^3/ul (0-0.2); ABS Eosinophils 0.1 10^3/ul (0-0.6); ABS Lymphocytes 1.5 10^3/ul (1.0-4.8); ABS Monocytes 0.4 10^3/ul (0-0.8); ABS Neutrophils 6.8 10^3/ul (1.5-7.7); ABS Nucleated RBC 0 10^3/ul; Eosinophil % 0.7 % (0-6); Hematocrit 48 % (42-52); Hemoglobin 16.5 g/dl (14.0-18.0); Lymphocyte % 17.2 % (25-47); Mean Corpuscular HGB Conc 34 g/dl (31-36); Mean Corpuscular Hemoglobin 31 pg (27-31); Mean Corpuscular Volume 90 fL (80-94); Mean Platelet Volume 8.9 um3 (7.4-10.4); Nucleated Red Blood Cells % 0.1; Platelet Count 255 10^3/ul (150-450); Red Blood Count 5.35 10^6/ul (4.00-5.40); Red Cell Distribution Width 15 % (10.5-15); White Blood Count 8.9 10^3/ul (3.5-10.8)
[2018-05-14] MEDS: HYDROmorphone INJ1* 1 MG/ML SYRINGE IV SLOW PU ONE ×5 (13:31→19:39)
--- NOTE | 2018-05-14 13:42 | PN ---
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 GERALDO Moran of [facility], insulin dependent diabetes mellitus that is poorly controlled (A1C >14 on 04/24/18). Functionally asplenic. He has chronic abdominal pain and his insurance will recently only cover 7 days of opioids at a time. He recently was able to see pancratic surgeon Dr. Luis Alberto Anderson of [facility] on 05/06. This office note has been requested. Patient and state that the plan was to get a PEG tube for additional nutritional support, get further imaging and control his blood sugars better before any other surgical procedures. Patient say Dr. Mclaughlin of Endocrinology on 04/[address] Olvera in [facility] on 04/24. His insulin regimen was changed. Pt presented to [facility] on 05/11 with concern for additional weight loss and seeking referral back to [facility] to get feeding tube. He had RUQ US at that time that did not show any intrahepatic biliary dilatation. CBD not able to be visualized. Dr. Anderson mitten stitcher states he missed a radiologist appointment up there on 05/08. He has limited transportation given their car (at least as of last visit had not passed safety inspection). Pt returns with uncontrolled abdominal pain. Ran out of diluadid last night. His work-up is in progress. Depending on the findings, anything requiring surgical intervention would need transfer up to the [facility] where his specialist practices as our surgeons and even the surgeons at [facility] have said they don't have any options for him.
--- NOTE | 2018-05-14 14:10 | ED ---
Abdominal Pain/Male - HPI Summary HPI Summary: Patient is a 42 y/o M w/ c/o diffuse abdominal pain and in particular at the LUQ onsetting last night. Patient's , Joyce, is present in the room and provides most of HPI as patient is moaning due to pain and not speaking. Patient has PMHx of chronic necrotizing pancreatitis, onsetting in 2001. reports that condition has worsened since 2013. They are concerned that patient is having a flare-up of his condition. 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 reports that patient has not vomited, diarrhea denied; patient notes some nausea and cough in the room. Difficulty eating due to pain is also noted. reports that patient felt hot last night, temperature was measured to be 98.3 F in the room. In the room, patient notes sitting up aggravates pain. Patient has been seeing Dr. Olvera. Patient has had consults with surgeons regarding his medical problems at [facility]; they want him to improve his weight and stabilize his BG level before surgery is considered. Patient is a type 1 diabetic, currently on Humulin R and N. He did not take his insulin this morning. Patient has been diabetic since 2013, reports patient's diabetes was originally controlled by diet. PMHx of DKA. No FHx of pancreatitis. Patient took dilaudid and phenergan at home. He has not had his flu shot. On triage, pain is rated 10/10, nothing is noted to aggravate/alleviate Sx. Allergies/Adverse Reactions: Allergies Allergy/AdvReac Type Severity Reaction Status Date / Time acetaminophen [From Tylenol] AdvReac Intermediate GI Upset Verified 05/11/18 13: 35 codeine AdvReac Intermediate GI Upset Verified 05/11/18 13:35 ibuprofen AdvReac Intermediate GI Upset Verified 05/11/18 13:35 Home Medications: Home Medications Cholecalciferol TAB* [Vitamin D TAB*] 400 unit PO DAILY 05/14/18 [History Confirmed 05/14/18] Insulin NPH Human Isophane [Humulin N Kwikpen] 30 unit SUBCUT DAILY 05/14/18 [ History Confirmed 05/14/18] Insulin Regular 500 Unit/ml [Humulin R U-500 (Concentrated)] 0 - 18 unit SUBCUT ACHS 05/14/18 [History Confirmed 05/14/18] Promethazine TAB* [Phenergan TAB*] 25 mg PO Q8H PRN 05/14/18 [History Confirmed 05/14/18] - History of Current Complaint Chief Complaint: EDAbdPain Stated Complaint: ABD PAIN Time Seen by Provider: 05/14/18 12:36 Hx Obtained From: Patient, Family/Rn On Site - Onset/Duration: Gradual Onset, Lasting Days - onset last night, Still Present Timing: Constant Severity Initially: Severe Severity Currently: Severe Pain Intensity: 10 Pain Scale Used: 0-10 Numeric Location: Diffuse, Discrete At: LUQ - worse Radiates to: Flank - bilat Character: Sharp Aggravating Factor(s): Other: - sitting up Alleviating Factor(s): Nothing Associated Signs And Symptoms: Positive: Cough, Nausea. Negative: Fever, Vomiting, Diarrhea Similar Episode/Dx As:: pancreatitis - Allergies/Home Medications Allergies/Adverse Reactions: Allergies Allergy/AdvReac Type Severity Reaction Status Date / Time acetaminophen [From Tylenol] AdvReac Intermediate GI Upset Verified 05/11/18 13: 35 codeine AdvReac Intermediate GI Upset Verified 05/11/18 13:35 ibuprofen AdvReac Intermediate GI Upset Verified 05/11/18 13:35 Home Medications: Home Medications Cholecalciferol TAB* [Vitamin D TAB*] 400 unit PO DAILY 05/14/18 [History Confirmed 05/14/18] Insulin NPH Human Isophane [Humulin N Kwikpen] 30 unit SUBCUT DAILY 05/14/18 [ History Confirmed 05/14/18] Insulin Regular 500 Unit/ml [Humulin R U-500 (Concentrated)] 0 - 18 unit SUBCUT ACHS 05/14/18 [History Confirmed 05/14/18] Promethazine TAB* [Phenergan TAB*] 25 mg PO Q8H PRN 05/14/18 [History Confirmed 05/14/18] PMH/Surg Hx/FS Hx/Imm Hx Previously Healthy: No Endocrine/Hematology History: Reports: Hx Diabetes, Other Endocrine/ Hematological Disorders - pancreatitis Denies: Hx Thyroid Disease Cardiovascular History: Reports: Hx Hypercholesterolemia Denies: Hx Congestive Heart Failure, Hx Hypertension Respiratory History: Denies: Hx Asthma, Hx Chronic Obstructive Pulmonary Disease (COPD) GI History: Reports: Hx Gastroesophageal Reflux Disease, Other GI Disorders - Pancreatitis, chronic, splenic necrosis Denies: Hx Ulcer History: Denies: Hx Dialysis, Hx Renal Disease Sensory History: Denies: Hx Cataracts, Hx Contacts or Glasses, Hx Eye Injury, Hx Eye Prosthesis, Hx Glaucoma, Hx Legally Blind, Hx Macular Degeneration, Hx Vision Problem, Hx Deafness, Hx Hearing Aid, Hx Hearing Problem, Other Sensory Impairments Opthamlomology History: Denies: Hx Cataracts, Hx Contacts or Glasses, Hx Eye Injury, Hx Eye Prosthesis, Hx Glaucoma, Hx Legally Blind, Hx Macular Degeneration, Hx Vision Problem, Other Sensory Impairments Neurological History: Denies: Hx Dementia, Hx Developmental Delay, Hx Headaches, Hx Migraine, Hx Nerve Disease, Hx Seizures, Hx Spinal Cord Injury, Hx Transient Ischemic Attacks (TIA), Other Neuro Impairments/Disorders Psychiatric History: Reports: Hx Depression - Surgical History Surgery Procedure, Year, and Place: skin grafting at 18 months of age on forehead, PIECE OF PANCREAS REMOVED 08/2014 @ [place], [place] Hx Anesthesia Reactions: No - Immunization History Date of Tetanus Vaccine: utd Date of Influenza Vaccine: fall 2016 Immunizations Up to Date: Yes Infectious Disease History: No Infectious Disease History: Denies: Hx Clostridium Difficile, Hx Hepatitis, Hx Human Immunodeficiency Virus (HIV), Hx of Known/Suspected MRSA, Hx Shingles, Hx Tuberculosis, Traveled Outside the [place] in Last 30 Days - Family History Known Family History: Positive: Other - Familial hypercholesterolemia - Social History Lives: With Family Alcohol Use: None Hx Substance Use: Yes Substance Use Type: Reports: Marijuana Substance Use Comment - Amount & Last Used: Marijuana used occasionally to increase appetite and treat pain Hx Tobacco Use: Yes Smoking Status (MU): Light Every Day Tobacco Smoker Type: Cigarettes Amount Used/How Often: 1/2 ppd Have You Smoked in the Last Year: Yes Review of Systems Negative: Fever Cardiovascular: Negative Positive: Cough Positive: Abdominal Pain, Nausea, Other - Difficulty eating due to pain . Negative: Vomiting, Diarrhea Genitourinary: Negative Musculoskeletal: Negative Skin: Negative Neurological: Negative Psychological: Normal All Other Systems Reviewed And Are Negative: Yes Physical Exam - Summary Physical Exam Summary: Appearance: ill-appearing, severe pain distress, thin, moaning in pain on stretcher Skin: Warm, color reflects adequate perfusion, dry Head: Normal Head/Face inspection, atraumatic Eyes: Conjunctiva clear ENT: Dry mucous membranes Neck: Supple, no nodes, no JVD Respiratory: Lungs clear, normal breath sounds, no respiratory distress Cardio: RRR, No murmur, pulses normal, brisk capillary refill Abdomen: Soft, diffusely tender, worse LUQ; non-distended, no masses appreciated Bowel sounds: Present Musculoskeletal: Strength Intact/ROM intact, no calf tenderness, no edema. Psychological: In pain Neuro: Alert, muscle tone normal, no focal deficit Triage Information Reviewed: Yes Vital Signs On Initial Exam: Initial Vitals Temp Pulse Resp BP Pulse Ox 98.6 F 84 22 113/69 100 05/14/18 12:04 05/14/18 12:04 05/14/18 12:04 05/14/18 12:04 05/14/18 12:04 Vital Signs Reviewed: Yes Diagnostics - Vital Signs Vital Signs Temp Pulse Resp BP Pulse Ox 05/14/18 13:31 22 05/14/18 12:04 98.6 F 84 22 113/69 100 - Laboratory Lab Results: Lab Results 05/14/18 05/14/18 05/14/18 Range/Units 13:13 13:13 13:13 WBC 8.9 (3.5-10.8) 10^3/ul RBC 5.35 (4.00-5.40) 10^6/ul Hgb 16.5 (14.0-18.0) g/dl Hct 48 (42-52) % MCV 90 (80-94) fL MCH 31 (27-31) pg MCHC 34 (31-36) g/dl RDW 15 (10.5-15) % Plt Count 255 (150-450) 10^3/ul MPV 8.9 (7.4-10.4) um3 Neut % (Auto) 76.5 (38-83) % Lymph % (Auto) 17.2 L (25-47) % [place] % (Auto) 4.5 (0-7) % Eos % (Auto) 0.7 (0-6) % Baso % (Auto) 1.1 (0-2) % Absolute Neuts (auto) 6.8 (1.5-7.7) 10^3/ul Absolute Lymphs (auto) 1.5 (1.0-4.8) 10^3/ul Absolute Monos (auto) 0.4 (0-0.8) 10^3/ul Absolute Eos (auto) 0.1 (0-0.6) 10^3/ul Absolute Basos (auto) 0.1 (0-0.2) 10^3/ul Absolute Nucleated RBC 0 10^3/ul Nucleated RBC % 0.1 VBG pH (7.33-7.43) VBG pCO2 (41-51) mmHg VBG pO2 (35-45) mmHg VBG HCO3 (24-28) mmol/L VBG O2 Saturation (70-80) % VBG Base Excess (0-4) Sodium 127 L (135-145) mmol/L Potassium TNP Chloride 93 L (101-111) mmol/L Carbon Dioxide 12 L* (22-32) mmol/L Anion Gap 22 H (2-11) mmol/L BUN 8 (6-24) mg/dL Creatinine 0.66 L (0.67-1.17) mg/dL Est GFR ( Amer) 160.9 (>60) Est GFR (Non-Af Amer) 133.0 (>60) BUN/Creatinine Ratio 12.1 (8-20) Glucose 320 H (70-100) mg/dL POC Glucose (mg/dL) (70-100) mg/dL Lactic Acid 0.7 (0.5-2.0) mmol/L Calcium 9.0 (8.6-10.3) mg/dL Ionized Calcium (4.65-5.28) mg/dL Magnesium TNP Total Bilirubin 0.80 (0.2-1.0) mg/dL AST TNP ALT 226 H (7-52) U/L Alkaline Phosphatase 536 H (34-104) U/L Ammonia Total Creatine Kinase 47 (10-223) U/L Troponin I 0.01 (<0.04) ng/mL C-Reactive Protein 11.99 H (<8.01) mg/L B-Natriuretic Peptide ( - 100) pg/mL Total Protein 7.5 (6.4-8.9) g/dL Albumin 4.2 (3.2-5.2) g/dL Globulin 3.3 (2-4) g/dL Albumin/Globulin Ratio 1.3 (1-3) Amylase 16 L (29-103) U/L Lipase 53 (11.0-82.0) U/L 05/14/18 05/14/18 05/14/18 Range/Units 13:13 13:13 13:37 WBC (3.5-10.8) 10^3/ul RBC (4.00-5.40) 10^6/ul Hgb (14.0-18.0) g/dl Hct (42-52) % MCV (80-94) fL MCH (27-31) pg MCHC (31-36) g/dl RDW (10.5-15) % Plt Count (150-450) 10^3/ul MPV (7.4-10.4) um3 Neut % (Auto) (38-83) % Lymph % (Auto) (25-47) % [place] % (Auto) (0-7) % Eos % (Auto) (0-6) % Baso % (Auto) (0-2) % Absolute Neuts (auto) (1.5-7.7) 10^3/ul Absolute Lymphs (auto) (1.0-4.8) 10^3/ul Absolute Monos (auto) (0-0.8) 10^3/ul Absolute Eos (auto) (0-0.6) 10^3/ul Absolute Basos (auto) (0-0.2) 10^3/ul Absolute Nucleated RBC 10^3/ul Nucleated RBC % VBG pH 7.29 L (7.33-7.43) VBG pCO2 26 L (41-51) mmHg VBG pO2 59 H (35-45) mmHg VBG HCO3 15.2 L (24-28) mmol/L VBG O2 Saturation 93.0 H (70-80) % VBG Base Excess -12.1 L (0-4) Sodium (135-145) mmol/L Potassium Chloride (101-111) mmol/L Carbon Dioxide (22-32) mmol/L Anion Gap (2-11) mmol/L BUN (6-24) mg/dL Creatinine (0.67-1.17) mg/dL Est GFR ( Amer) (>60) Est GFR (Non-Af Amer) (>60) BUN/Creatinine Ratio (8-20) Glucose (70-100) mg/dL POC Glucose (mg/dL) 269 H (70-100) mg/dL Lactic Acid (0.5-2.0) mmol/L Calcium (8.6-10.3) mg/dL Ionized Calcium 5.05 (4.65-5.28) mg/dL Magnesium Total Bilirubin (0.2-1.0) mg/dL AST ALT (7-52) U/L Alkaline Phosphatase (34-104) U/L Ammonia TNP Total Creatine Kinase (10-223) U/L Troponin I (<0.04) ng/mL C-Reactive Protein (<8.01) mg/L B-Natriuretic Peptide 26 ( - 100) pg/mL Total Protein (6.4-8.9) g/dL Albumin (3.2-5.2) g/dL Globulin (2-4) g/dL Albumin/Globulin Ratio (1-3) Amylase (29-103) U/L Lipase (11.0-82.0) U/L Result Diagrams: 05/14/18 19:25 05/14/18 19:25 Lab Statement: Any lab studies that have been ordered have been reviewed, and results considered in the medical decision making process. 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 The portal veins appear patent. There is hepatic steatosis noted. The pancreas appears to be somewhat atrophic and not significantly changed since March 31, 2018 with minimal peripancreatic fluid is noted although this appears to be similar in appearance to that of March. Cortical cyst in the left kidney is unchanged. THIS REPORT WAS REVIEWED BY ED PHYSICIAN. - EKG 1300 Cardiac Rate: NL - rate of 72 EKG Rhythm: Sinus Rhythm ST Segment: Non-Specific Ectopy: None EKG Interpretation: nml AV/IV CT, nml QTc, nml axis, no STEMI Re-Evaluation - Re-Evaluation First Eval Re-Evaluation Time: 14:22 Change: Worse Comment: more abdominal pain, more dilaudid was ordered Second Eval Re-Evaluation Time: 14:43 Comment: pt's blood is too lipemic for accurate results, lipid panel will be ordered. Third Eval Re-Evaluation Time: 15:12 Change: Improved Comment: If transfer is needed, patient and patient's request [facility], because they have no car functioning. Patient is almost done drinking oral contrast. Patients pain is controlled. Fourth Eval Re-Evaluation Time: 15:31 Change: Unchanged Comment: notes that patient had a tick on his right groin for eight hours two days ago. She has the tick in a bottle. Tick does not appear engorged. She also notes that patient has been seen by Dr. Ronak Moran at [facility] as well as Dr. Anderson as well. Fifth Eval Re-Evaluation Time: 16:47 Change: Unchanged Comment: Patient's pain continues, patient will be finger sticked once more. Transfer of patient to [facility] will be initiated, patient and patient's agreeable. Sixth + Eval Re-Evaluation Time: 19:00 Change: Unchanged Comment: Finger stick was 403 BG. Abdominal Pain Fem Course/Dx - Course Assessment/Plan: Patient is a 42 y/o M w/ c/o diffuse abdominal pain and in particular at the LUQ onsetting last night. Patient's , Joyce, is present in the room and provides most of HPI as patient is moaning due to pain and not speaking. Patient has PMHx of chronic necrotizing pancreatitis, onsetting in 2001. They are concerned that patient is having a flare-up of his condition. 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 reports that patient has not vomited, diarrhea denied; patient notes some nausea and cough in the room. Difficulty eating due to pain is also noted. reports that patient felt hot last night, temperature was measured to be 98.3 F in the room. Patient has had consults with surgeons regarding his medical problems at [facility]; they want him to improve his weight and stabilize his BG level before surgery is considered. Patient is a type 1 diabetic, currently on Humulin R and N. He did not take his insulin this morning. Patient took dilaudid at [facility] at home. He has not had his flu shot. On physical exam, patient is ill-appearing, in severe pain distress. He is thin and moaning on the stretcher. Abdomen is Soft, diffusely tender, worse LUQ; non-distended, no masses appreciated. Dry mucous membranes are noted as well. During ED course, patient was given fluids, Zofran 4 mg IV, dilaudid 2 mg IV SLOW PUSH x5, insulin 4 mg IV. Blood gas showed VBG 7.29, pCO2 26, pO2 59, HCO3 15.2, O2 sat 93, base excess -12.1. Labs showed carbon dioxide 12, anion gap 22, sodium 127, glucose 320, POC glucose at 1337 was 269, 281 at 1651, lipase 53, amylase 16. Pt's blood is too lipemic for accurate results; Lipid panel showed triglycerides were 2069, Cholesterol 541, LDL cholesterol direct 98, HDL cholesterol was 28.3.EKG showed normal sinus rhythm and rate of 72 BPM, nml AV/IV CT, nml QTc, nml axis, no STEMI. CT abd/ pel showed no acute changes. Dr. Olvera in ED, patient's case was discussed. Patient was seen at [facility] 05/11/18, lipase was okay, alk phos was reported to have been creeping upwards. Gallbladder is unremarkable. Any surgical intervention would likely require transport to [facility]. 1611 -- Dr. Lewis, general surgery, was consulted; states that patient is above the level of care for this facility. 164 -- Dr. Ferguson, GI, was consulted, also states that patient is above the level of care of this facility. As there is no senior linux systems administrator /pancreatic specialist service at [facility], transfer of patient was begun. Patient and patient's are agreeable with transfer to [facility] since pt had evaluation with Dr. Anderson. Refer to consult note from Dr. Olvera. 1920 -- Dr. Riley from [facility] called back, stated that patient does not need acute surgical intervention, recommends ED to ED transfer. 1941 -- Dr. Hinton called back and accepted patient for admission. Patient will be transferred ED to ED. Dx of vomiting, acute necrotizing pancreatitis, type 1 diabetes in poor control. - Diagnoses Provider Diagnoses: Acute necrotizing pancreatitis, Vomiting, Type 1 diabetes, Hyperglycemia, Hypertriglyceridemia - Provider Notifications Discussed Care Of Patient With: Azael Olvera Time Discussed With Above Provider: 12:50 Instructed by Provider To: Transfer - Patient's called Dr. Olvera's office on behalf of Dr. Fierro in the room. Dr. Olvera will come to ED to see patient. 1306 -- Dr. Olvera in ED, patient's case was discussed. Patient was seen at [facility] , lipase was okay, alk phos was reported to have been creeping upwards. Gallbladder is unremarkable. 1612 -- Dr. Lewis was consulted; patient states that patient is above the level of care for this facility. 1642 -- Dr. Ferguson was consulted, also states that patient is above the level of care of this facility. 1717 -- discussed reason for transfer w/ [facility] transfer center. 175 -- [facility] was discussed with [facility], will call back. 1920 -- Dr. Riley from [facility] called back, stated that patient does not need acute surgical intervention, recommends ED to ED transfer. 1941 -- Dr. Hinton called, accept patient for transfer from [facility] ED to [facility] ED. Reason For Transfer: Specialty or service not available at [facility]. - Critical Care Time Critical Care Time: 30-74 min - 60 minutes Discharge - Sign-Out/Discharge Documenting (check all that apply): Patient Departure - transfer - Discharge Plan Condition: Good Disposition: TRANS HIGHER LVL OF CARE FAC Referrals: Don Heller MD [Primary Care Provider] - - Billing Disposition and Condition Condition: GOOD Disposition: Trans Higher Lvl of Care Fac - Attestation Statements Document Initiated by Scribe: Yes Documenting Scribe: Scott Causey Provider For Whom Abdoulayeibe is Documenting (Include Credential): Cecy Fierro MD Scribe Attestation: Scott Garcia , scribed for Cecy Fierro MD on 05/14/18 at 2012. Scribe Documentation Reviewed: Yes Provider Attestation: The documentation as recorded by the abdoulayeibScott mendez accurately reflects the service I personally performed and the decisions made by me, Cecy Fierro MD
[2018-05-14 15:11] LABS: INR 0.9 (0.77-1.02)
--- NOTE | 2018-05-14 15:43 | RAD ---
Indication: Abdominal pain. Contrast: Administered 92.0 ml of VISAPAQUE 320 mg/ml CT of the abdomen and pelvis performed after oral and IV contrast administration. Comparison is made with previous exam dated March 31, 2018. Coronal and sagittal reconstructed images were obtained. The lung bases demonstrate no pleural fluid, nodules or masses. Heart is of normal size without evidence of pericardial effusion. The liver is normal in size. It is diffusely decreased in density consistent with hepatic steatosis. The portal veins including the main portal vein, left and right portal veins are patent. There is evidence of splenic infarct which was present on March 31, 2018. No significant change is noted. The splenic vein is not well demonstrated the possibility of chronic splenic vein thrombosis should BE considered. No adrenal masses are noted. The kidneys demonstrate symmetric nephrograms without evidence of focal solid lesions. Cortical cyst lower pole left kidney measuring 1.8 cm. The retroperitoneal lymphadenopathy is noted. The pancreas is atrophic and not clearly identified on this study. No dilated loops of bowel are noted. The colon is filled with stool. No retroperitoneal adenopathy is noted. No dilated loops of bowel are noted. CT of the pelvis demonstrates atherosclerotic aorta. Stool is present throughout the colon. No dilated loops of bowel are noted. The urinary bladder is otherwise unremarkable. The appendix is visualized and is normal. The visualized bony structures are otherwise unremarkable. 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 The portal veins appear patent. There is hepatic steatosis noted. The pancreas appears to be somewhat atrophic and not significantly changed since March 31, 2018 with minimal peripancreatic fluid is noted although this appears to be similar in appearance to that of March 31, 2018. Cortical cyst in the left kidney is unchanged.
[2018-05-14 19:39] LABS: ABS Basophils 0.1 10^3/ul (0-0.2); ABS Eosinophils 0.1 10^3/ul (0-0.6); ABS Lymphocytes 2.2 10^3/ul (1.0-4.8); ABS Monocytes 0.4 10^3/ul (0-0.8); ABS Neutrophils 5.3 10^3/ul (1.5-7.7); ABS Nucleated RBC 0 10^3/ul; Eosinophil % 1.5 % (0-6); Hematocrit 48 % (42-52); Hemoglobin 15.9 g/dl (14.0-18.0); Lymphocyte % 26.8 % (25-47); Mean Corpuscular HGB Conc 33 g/dl (31-36); Mean Corpuscular Hemoglobin 30 pg (27-31); Mean Corpuscular Volume 91 fL (80-94); Mean Platelet Volume 9.2 um3 (7.4-10.4); Nucleated Red Blood Cells % 0.2; Platelet Count 265 10^3/ul (150-450); Red Cell Distribution Width 15 % (10.5-15); White Blood Count 8.1 10^3/ul (3.5-10.8)
[2018-05-14 20:29] VITALS: BP 119/77
== END | disposition short-term general hospital (02) ==
LOC: ED 11:59
DX: K85.91 Acute pancreatitis with uninfected necrosis, unspecified (principal); D73.5 Infarction of spleen; R11.10 Vomiting, unspecified; R05 Cough; E10.65 Type 1 diabetes mellitus with hyperglycemia; Z79.4 Long term (current) use of insulin; E78.1 Pure hyperglyceridemia; N28.1 Cyst of kidney, acquired; Z88.6 Allergy status to analgesic agent; Z88.5 Allergy status to narcotic agent; F17.210 Nicotine dependence, cigarettes, uncomplicated
CPT/HCPCS: 36415; 74177; 80053; 80061; 82150; 82330; 82550; 82803; 83605; 83690; 83721; 83735; 83880; 84484; 85025; 85610; 85730; 86140; 93005; 96361; 96374; 96375; 99284; J1170; J2405; Q9967

== ENCOUNTER → 2018-06-02 06:30 | Emergency (ER) | payer MEDICAID ==
[~2018-06-02 06:30] MED LIST changes: +HYDROmorphone INJ1* 1 MG/ML SYRINGE IV SLOW PU ONE; +HYDROmorphone TAB* 4 MG PO ONE; +Insulin GLARGINE(*) 1 UNITS UNIT SUBCUT ONE; -Insulin REGULAR(*) 1 UNITS UNIT IV PUSH ONE; -Insulin REGULAR(*) 1 UNITS UNIT ONE; -Iodixanol* (CONTRAST) 320 MG/ML 100 ML SDV IV ONE; -NS 0.9% 1000 ML* 2,000 ML IV ONE
--- NOTE | 2018-06-02 06:51 | ED ---
Abdominal Pain/Male - HPI Summary HPI Summary: Pt presents w/ acute on chronic ab pain which he believes is a flair-up of his pancreatitis. This has been progressing over the past 3-4 days w/ associated sx of feeling "warm". He has been treating his pain w/ dilaudid 4mg PO which has been helping until this morning. Reports his told him he was "moaning in his sleep again" and pain was worse at 3:00am than it has been. He has severe nausea and vomited last night. Has had loose stools the past couple of days as well. Has been making himself eat/drink as he knows he needs to - has developed type 1 diabetes as a result of his pancreatitis a few years ago. Has been working hard to get glucose levels < 200 which he had attained at one point - they've been creeping up into the 300's in the afternoon and more consistently in the 200's. He reports 600's are high/bad for him and hasn't been here in a while. Uses insulin U-500 and sliding scale daily. 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 Anderson at [facility] Per pt, he was told he has narrowing of 1 of his biliary ducts and dilitation of another - has a surgical team who discussed possibly placing a stent here as well as a feeding tube but they want him to improve his weight and stabilize his BG level before surgery is considered. This was discussed at most recent visit around 05/14/2018 - he was seen here that day and transfered to [place] ED. His CT that day revealed mostly chronic findings (see report for details). His presentation was as follows when seen here by Dr. Fierro: "diffuse abdominal pain and in particular at the LUQ onsetting last night. Patient's , Joyce, is present in the room and provides most of HPI as patient is moaning due to pain and not speaking.... They are concerned that patient is having a flare-up of his condition.... reports that patient has not vomited, diarrhea denied; patient notes some nausea and cough in the room. Difficulty eating due to pain is also noted. reports that patient felt hot last night, temperature was measured to be 98.3 F in the room. In the room, patient notes sitting up aggravates pain. Patient has been seeing Dr. Olvera.... Patient is a type 1 diabetic, currently on Humulin R and N. He did not take his insulin this morning. Patient has been diabetic since 2013, reports patient 's diabetes was originally controlled by diet.... Patient took dilaudid and phenergan at home. He has not had his flu shot. On triage, pain is rated 10/10, nothing is noted to aggravate/alleviate Sx." Today, he is in pain and intermittently cringes in pain, holding his abdomen. Appears concerned but is coherent and mentating well. Reports he continues to follow with Dr. Olvera through [facility] who this past week told him he could go to the hospital or ride it out and see how he feels - he's feeling worse so he's here today. Admits to mild cough as he's trying to quit smoking - was smoking 1/2PPD - now down to 3 cigarettes. continues to smoke which is challenging for him. - History of Current Complaint Stated Complaint: ABD PAIN Time Seen by Provider: 06/02/18 06:30 Hx Obtained From: Patient - Allergies/Home Medications Allergies/Adverse Reactions: Allergies Allergy/AdvReac Type Severity Reaction Status Date / Time acetaminophen [From Tylenol] AdvReac Intermediate GI Upset Verified 05/11/18 13: 35 codeine AdvReac Intermediate GI Upset Verified 05/11/18 13:35 ibuprofen AdvReac Intermediate GI Upset Verified 05/11/18 13:35 PMH/Surg Hx/FS Hx/Imm Hx Previously Healthy: No - chronic pancreatitis Endocrine/Hematology History: Reports: Hx Diabetes - type 1, 2ndry to pancreatitis; h/o DKA, Other Endocrine/Hematological Disorders - pancreatitis, h /o necrotysing Denies: Hx Thyroid Disease Cardiovascular History: Reports: Hx Hypercholesterolemia Denies: Hx Congestive Heart Failure, Hx Hypertension Respiratory History: Denies: Hx Asthma, Hx Chronic Obstructive Pulmonary Disease (COPD) GI History: Reports: Hx Gastroesophageal Reflux Disease, Other GI Disorders - Pancreatitis - chronic, splenic necrosis Denies: Hx Ulcer History: Denies: Hx Dialysis, Hx Renal Disease Sensory History: Denies: Hx Cataracts, Hx Contacts or Glasses, Hx Eye Injury, Hx Eye Prosthesis, Hx Glaucoma, Hx Legally Blind, Hx Macular Degeneration, Hx Vision Problem, Hx Deafness, Hx Hearing Aid, Hx Hearing Problem, Other Sensory Impairments Opthamlomology History: Denies: Hx Cataracts, Hx Contacts or Glasses, Hx Eye Injury, Hx Eye Prosthesis, Hx Glaucoma, Hx Legally Blind, Hx Macular Degeneration, Hx Vision Problem, Other Sensory Impairments Neurological History: Denies: Hx Dementia, Hx Developmental Delay, Hx Headaches, Hx Migraine, Hx Nerve Disease, Hx Seizures, Hx Spinal Cord Injury, Hx Transient Ischemic Attacks (TIA), Other Neuro Impairments/Disorders Psychiatric History: Reports: Hx Depression - Surgical History Surgery Procedure, Year, and Place: skin grafting at 18 months of age on forehead, PIECE OF PANCREAS REMOVED 08/2014 @ [place], [place] Hx Anesthesia Reactions: No - Immunization History Date of Tetanus Vaccine: utd Date of Influenza Vaccine: fall 2016 Infectious Disease History: Denies: Hx Clostridium Difficile, Hx Hepatitis, Hx Human Immunodeficiency Virus (HIV), Hx of Known/Suspected MRSA, Hx Shingles, Hx Tuberculosis - Family History Known Family History: Positive: Other - brother high triglycerides (>1,000) - Social History Lives: With Family Alcohol Use: None Hx Substance Use: Yes Substance Use Type: Reports: Marijuana Substance Use Comment - Amount & Last Used: Marijuana used occasionally to increase appetite and treat pain Hx Tobacco Use: Yes - trying to cut down/quit - 3 a day as of late Smoking Status (MU): Current Every Day Smoker Type: Cigarettes Amount Used/How Often: 1/2 ppd Have You Smoked in the Last Year: Yes Review of Systems Constitutional: Other - "warm" Negative: Fever, Chills, Fatigue Eyes: Negative ENT: Negative Cardiovascular: Negative Positive: Cough. Negative: Shortness Of Breath Positive: Abdominal Pain, Vomiting, Diarrhea, Nausea Genitourinary: Negative Musculoskeletal: Negative Skin: Negative Neurological: Negative Positive: Anxious - concerned about difficulty controlling his pain All Other Systems Reviewed And Are Negative: Yes Physical Exam Triage Information Reviewed: Yes Vital Signs Reviewed: Yes Appearance: Positive: Pain Distress Skin: Positive: Warm, Skin Color Reflects Adequate Perfusion, Dry - no jaundice Head/Face: Positive: Normal Head/Face Inspection Eyes: Positive: Normal, EOMI, Conjunctiva Clear - anicteric sclera ENT: Positive: Normal ENT inspection, Hearing grossly normal, Pharynx normal - mucosa somewhat dry - does not have acetone breath. Negative: Nasal congestion , Nasal drainage Neck: Positive: Supple, Nontender Respiratory/Lung Sounds: Positive: Clear to Auscultation, Breath Sounds Present. Negative: Rales, Rhonchi, Wheezes Cardiovascular: Positive: Normal, RRR, S1, S2 Abdomen Description: Positive: Guarding, Other: - holding epigastric and LUQ areas in pain Bowel Sounds: Positive: Present Musculoskeletal: Positive: Normal, Strength/ROM Intact Neurological: Positive: Normal, Sensory/Motor Intact, Alert, Oriented to Person Place, Time, CN Intact II-III, Facial Symmetry, Speech Normal. Negative: Disoriented Psychiatric: Positive: Anxious - but able to relay hx - good historian, no signs of confusion Diagnostics - Laboratory Result Diagrams: 06/02/18 06:45 06/02/18 08:05 Lab Statement: Any lab studies that have been ordered have been reviewed, and results considered in the medical decision making process. Re-Evaluation - Re-Evaluation First Eval Change: Unchanged Second Eval Change: Improved Third Eval Change: Worse Fourth Eval Change: Improved Abdominal Pain Fem Course/Dx - Course Course Of Treatment: Pt presents w/ acute on chronic ab pain - believed to be pancreatitis flair -up (see HPI for details). Upon initial eval, pt does not meet SIRS criteria, does not smell ketotic and is mentating well therefore aggressive presumptive fluid replacement was not initiated. His labs although abnormal are mostly baseline for him. His lipase is elevated today and most likely cause of pain (mild elevation of pancreatic enzymes). Liver enzymes are also elevated. After reviewing chart from previous visit and options, he may benefit from surgical intervention at this time - he is basically begging for something to change as the pain is exhauting. He reports he's willing to take on the risks of surgical intervention just in an effort to achieve some relief. Discussed case with Dr. Dunbar and Dr. Giron. Pt's pain is better than upon arrival and nausea resolved. He was given multiple doses of dilaudid, IVF and insulin. He will be d/c'd and advised close f/u w/ Dr. Olvera outpt if sx improve over next 2 days, but if worse may benefit from evaluation by his surgical team at [facility]. If he has inability to maintain PO status or develops a fever, will return to ED or closest ED when/if these sx arrive. - Diagnoses Provider Diagnoses: Pancreatitis, Diabetes type I, Abdominal pain Discharge - Sign-Out/Discharge Documenting (check all that apply): Patient Departure - Discharge Plan Condition: Improved Disposition: HOME Prescriptions: Promethazine SUPP* [Phenergan Supp*] 25 mg MT Q4H PRN #30 supp PRN Reason: Vomiting Referrals: Azael Olvera MD [Medical Doctor] - Luis Alberto Anderson MD [Medical Doctor] - Additional Instructions: The cause of your pain today is most likely a pancreatic flareup. Your pain was mostly controlled with IV pain medication. Your nausea was completely controlled with IV meds and you were able to tolerate liquids by mouth. It is encouraged that you continue to stay on top of your pain with your oral meds and use your anti-nausea meds at home as directed. Stay hydrated as well. If you develop nausea with vomiting and cannot take anything by mouth, suppositories for nausea have been sent to the pharmacy for you. If despite trying these you still cannot hold down anything by mouth, return to the emergency department. A CT scan was not ordered today as he just had one 20 days ago and your presentation does not appear to warrant such a close bout of radiation again. Call Dr. Anderson tomorrow to update him of your symptoms. If you're feeling better in the next 2 days, you may follow up with your PCP Dr. Olvera at the [facility]. If not or you are worse, it is recommended you go directly to [facility] as further surgical intervention may be warranted at this time and we' re unable to provide those services here. - Billing Disposition and Condition Condition: IMPROVED Disposition: Home
[2018-06-02 07:04] LABS: ABS Basophils 0.1 10^3/ul (0-0.2); ABS Eosinophils 0.2 10^3/ul (0-0.6); ABS Lymphocytes 1.7 10^3/ul (1.0-4.8); ABS Monocytes 0.5 10^3/ul (0-0.8); ABS Nucleated RBC 0 10^3/ul; Eosinophil % 1.9 % (0-6); Hematocrit 45 % (42-52); Hemoglobin 16.9 g/dl (14.0-18.0); Lymphocyte % 19.8 % (25-47); Mean Corpuscular HGB Conc 37 g/dl (31-36); Mean Corpuscular Hemoglobin 33 pg (27-31); Mean Corpuscular Volume 88 fL (80-94); Mean Platelet Volume 8.9 um3 (7.4-10.4); Nucleated Red Blood Cells % 0; Platelet Count 305 10^3/ul (150-450); Red Blood Count 5.15 10^6/ul (4.00-5.40); Red Cell Distribution Width 15 % (10.5-15); White Blood Count 8.5 10^3/ul (3.5-10.8)
[2018-06-02 07:08] LABS: INR 0.86 (0.77-1.02)
[2018-06-02 10:41] VITALS: BP 111/68
[2018-06-02 11:01] LABS: Urine Appearance Clear; Urine Blood Negative (Negative); Urine Color Yellow; Urine Ketones Trace (Negative); Urine Protein Negative (Negative); Urine Specific Gravity 1.036 (1.010-1.030); Urine Urobilinogen Negative (Negative)
== END | disposition home or self-care (01) ==
LOC: ED 06:30
DX: K85.90 Acute pancreatitis without necrosis or infection, unspecified (principal); E10.9 Type 1 diabetes mellitus without complications; R10.9 Unspecified abdominal pain; G89.29 Other chronic pain; F17.210 Nicotine dependence, cigarettes, uncomplicated
CPT/HCPCS: 36415; 80053; 81003; 82150; 82803; 83605; 83690; 85025; 85610; 85730; 86140; 96374; 96375; 99283; A9270-GY; J1170; J2405

== ENCOUNTER 2018-06-04 01:37 | Emergency (ER) | payer MEDICAID ==
[2018-06-04] MEDS ORDERED: HYDROmorphone INJ1* 1 MG/ML SYRINGE IV SLOW PU ONE (01:45)
[2018-06-04] MEDS ORDERED: NS 0.9% 1000 ML* 1,000 ML IV ONE (01:45)
[2018-06-04] MEDS ORDERED: Ondansetron INJ* 2 MG/ML VIAL IV ONE (01:47)
--- NOTE | 2018-06-04 01:53 | ED ---
Abdominal Pain/Male - HPI Summary HPI Summary: A 43 y/o male TIA complains of vomiting since 21:00 06/03/18. He also c/o nausea and abd pain. The patient has usually been going to [facility] in [place], where he was admitted for a week, leaving on 05/30/2018. However the pt could not make it there today and called an ambulance. He last felt fine around the beginning of May 2018. He denies drinking but admits to smoking marijuana. - History of Current Complaint Chief Complaint: EDAbdPain Stated Complaint: ABD PAIN Time Seen by Provider: 06/04/18 01:40 Hx Obtained From: Patient Onset/Duration: Gradual Onset, Lasting Weeks, Still Present Timing: Constant Severity Initially: Moderate Severity Currently: Moderate - Allergies/Home Medications Allergies/Adverse Reactions: Allergies Allergy/AdvReac Type Severity Reaction Status Date / Time acetaminophen [From Tylenol] AdvReac Intermediate GI Upset Verified 05/11/18 13: 35 codeine AdvReac Intermediate GI Upset Verified 05/11/18 13:35 ibuprofen AdvReac Intermediate GI Upset Verified 05/11/18 13:35 PMH/Surg Hx/FS Hx/Imm Hx Endocrine/Hematology History: Reports: Hx Diabetes - type 1, 2ndry to pancreatitis; h/o DKA, Other Endocrine/Hematological Disorders - pancreatitis, h /o necrotysing Denies: Hx Thyroid Disease Cardiovascular History: Reports: Hx Hypercholesterolemia Denies: Hx Congestive Heart Failure, Hx Hypertension Respiratory History: Denies: Hx Asthma, Hx Chronic Obstructive Pulmonary Disease (COPD) GI History: Reports: Hx Gastroesophageal Reflux Disease, Other GI Disorders - Pancreatitis - chronic, splenic necrosis Denies: Hx Ulcer History: Denies: Hx Dialysis, Hx Renal Disease Sensory History: Denies: Hx Cataracts, Hx Contacts or Glasses, Hx Eye Injury, Hx Eye Prosthesis, Hx Glaucoma, Hx Legally Blind, Hx Macular Degeneration, Hx Vision Problem, Hx Deafness, Hx Hearing Aid, Hx Hearing Problem, Other Sensory Impairments Opthamlomology History: Denies: Hx Cataracts, Hx Contacts or Glasses, Hx Eye Injury, Hx Eye Prosthesis, Hx Glaucoma, Hx Legally Blind, Hx Macular Degeneration, Hx Vision Problem, Other Sensory Impairments Neurological History: Denies: Hx Dementia, Hx Developmental Delay, Hx Headaches, Hx Migraine, Hx Nerve Disease, Hx Seizures, Hx Spinal Cord Injury, Hx Transient Ischemic Attacks (TIA), Other Neuro Impairments/Disorders Psychiatric History: Reports: Hx Depression - Surgical History Surgery Procedure, Year, and Place: skin grafting at 18 months of age on forehead, PIECE OF PANCREAS REMOVED 08/2014 @ [place], [place] Hx Anesthesia Reactions: No - Immunization History Date of Tetanus Vaccine: utd Date of Influenza Vaccine: fall 2016 Infectious Disease History: Denies: Hx Clostridium Difficile, Hx Hepatitis, Hx Human Immunodeficiency Virus (HIV), Hx of Known/Suspected MRSA, Hx Shingles, Hx Tuberculosis - Family History Known Family History: Positive: Other - brother high triglycerides (>1,000) - Social History Alcohol Use: None Hx Substance Use: Yes Substance Use Type: Reports: Marijuana Substance Use Comment - Amount & Last Used: Marijuana used occasionally to increase appetite and treat pain Hx Tobacco Use: Yes - trying to cut down/quit - 3 a day as of late Smoking Status (MU): Current Every Day Smoker Type: Cigarettes Amount Used/How Often: 1/2 ppd Have You Smoked in the Last Year: Yes Review of Systems Negative: Fever Positive: Abdominal Pain, Vomiting, Nausea All Other Systems Reviewed And Are Negative: Yes Physical Exam - Summary Physical Exam Summary: Appearance: Well-appearing, Well-nourished, lying in bed comfortably Skin: Warm, dry, no obvious rash Eyes: sclera anicteric, no conjunctival pallor ENT: mucous membranes moist, pharynx appears normal Neck: Supple, nontender Respiratory: Clear to auscultation, no signs of respiratory distress Cardiovascular: Normal S1, S2. No murmurs. Normal distal pulses in tibial and radial bilaterally. Abdomen: Diffuse abdominal tenderness, no distention, normal bowel sounds Musculoskeletal: Normal, Strength/ROM Intact Neurological: A&Ox3, awake and alert, mentation is normal, speech is fluent and appropriate Psychiatric: affect is normal, does not appear anxious or depressed Triage Information Reviewed: Yes Vital Signs Reviewed: Yes Diagnostics - Laboratory Result Diagrams: 06/04/18 02:01 06/04/18 03:26 Lab Statement: Any lab studies that have been ordered have been reviewed, and results considered in the medical decision making process. - EKG 03:13 Cardiac Rate: NL - 66 bpm EKG Rhythm: Sinus Rhythm Summary of EKG Findings: QRS normal without peaked T waves. Abdominal Pain Fem Course/Dx - Course Course Of Treatment: A 43 y/o male TIA complains of vomiting since 21:00 . He also c/o nausea and abd pain. The patient has usually been going to [facility] in [place], where he was admitted for a week, leaving on 05/30/2018. He has a long history of complicated chronic pancreatitis, with diabetes, prior episodes of necrotizing pancreatitis and frequent exacerbations of pain. Apparently while at [facility] recently there were discussions about more advanced endoscopic or surgical procedure to ameliorate his symptoms but this was not done apparently due to concerns about his nutritional and diabetes status. He has been medicated for pain here, and given regular insulin subcutaneous. While his blood sugar is quite high, he does not appear to be acidotic with a normal bicarbonate. His sodium and potassium are difficult to get due to the lipemia. His EKG does not show any signs of hyperkalemia. I reached out to several tertiary care centers in the area but they're all unable to accept the patient, but I was able to get an accepting doctor at [facility] to their ICU. I discussed the case with our hospitalist who felt that the patient was too complicated for this hospital. - Diagnoses Provider Diagnoses: Pancreatitis, Hyperglycemia without ketosis, Intractable abdominal pain, Chronic pancreatitis - Provider Notifications Discussed Care Of Patient With: Jacquelyn Leahy - Critical Care Time Critical Care Time: 30-74 min - Acute on chronic pancreatitis requiring multiple doses of IV analgesics, IV fluids, attention to marked hyper glycemia and fluid status. Discharge - Sign-Out/Discharge Documenting (check all that apply): Patient Departure - Transfer - Discharge Plan Condition: Fair Disposition: TRANS HIGHER LVL OF CARE FAC Referrals: Don Heller MD [Primary Care Provider] - - Billing Disposition and Condition Condition: FAIR Disposition: Trans Higher Lvl of Care Fac - Attestation Statements Document Initiated by Andra: Yes Documenting Scribe: Zeeshan Diaz Provider For Whom Andra is Documenting (Include Credential): Phillip Mathis MD Scribandrea Attestation: Zeeshan Garcia, scribed for Phillip Mathis MD on 06/04/18 at 0622. Scribe Documentation Reviewed: Yes Provider Attestation: The documentation as recorded by the Zeeshan miller accurately reflects the service I personally performed and the decisions made by me, Phillip Mathis MD
[2018-06-04 02:55] LABS: ABS Basophils 0.1 10^3/ul (0-0.2); ABS Eosinophils 0.1 10^3/ul (0-0.6); ABS Lymphocytes 1.4 10^3/ul (1.0-4.8); ABS Neutrophils 5.1 10^3/ul (1.5-7.7); ABS Nucleated RBC 0 10^3/ul; Eosinophil % 1.3 % (0-6); Hematocrit 45 % (42-52); Hemoglobin 16.4 g/dl (14.0-18.0); Lymphocyte % 18.2 % (25-47); Mean Corpuscular HGB Conc 37 g/dl (31-36); Mean Corpuscular Hemoglobin 34 pg (27-31); Mean Corpuscular Volume 93 fL (80-94); Mean Platelet Volume 9.5 um3 (7.4-10.4); Nucleated Red Blood Cells % 0; Platelet Count 310 10^3/ul (150-450); Red Blood Count 4.78 10^6/ul (4.00-5.40); Red Cell Distribution Width 15 % (10.5-15); White Blood Count 7.7 10^3/ul (3.5-10.8)
[2018-06-04 02:56] LABS: EGFR Non-African American 66.1 (>60)
[2018-06-04] MEDS: HYDROmorphone INJ1* 1 MG/ML SYRINGE IV SLOW PU PRN ×2 (03:28→06:17)
[2018-06-04] MEDS ORDERED: Insulin REGULAR(*) 1 UNITS UNIT SUBCUT ONE (03:51)
[2018-06-04 03:58] LABS: Urine Appearance Clear; Urine Blood Negative (Negative); Urine Color Colorless; Urine Ketones Negative (Negative); Urine Protein Negative (Negative); Urine Specific Gravity 1.023 (1.010-1.030); Urine Urobilinogen Negative (Negative)
[2018-06-04 04:24] LABS: EGFR Non-African American 80.5 (>60)
[2018-06-04 08:04] VITALS: BP 125/50
== END 2018-06-04 08:02 | disposition short-term general hospital (02) ==
LOC: ED 01:37
DX: K86.1 Other chronic pancreatitis (principal); E10.65 Type 1 diabetes mellitus with hyperglycemia; R10.84 Generalized abdominal pain; Z88.6 Allergy status to analgesic agent; Z88.5 Allergy status to narcotic agent; F17.210 Nicotine dependence, cigarettes, uncomplicated
CPT/HCPCS: 36415; 80048; 80053; 81003; 83690; 84478; 85025; 93005; 96374; 96375; 96376; 99284; J1170; J1815; J2405

== ENCOUNTER 2018-06-05 18:14 | Inpatient (IN) | payer MEDICAID ==
[2018-06-05 20:15] LABS: Hematocrit 46 % (42-52); Hemoglobin 16.4 g/dl (14.0-18.0); Mean Corpuscular HGB Conc 36 g/dl (31-36); Mean Corpuscular Hemoglobin 32 pg (27-31); Mean Corpuscular Volume 89 fL (80-94); Mean Platelet Volume 8.8 um3 (7.4-10.4); Platelet Count 316 10^3/ul (150-450); Red Blood Count 5.09 10^6/ul (4.00-5.40); Red Cell Distribution Width 14 % (10.5-15); White Blood Count 10.8 10^3/ul (3.5-10.8)
[2018-06-05 20:22] LABS: INR 0.93 (0.77-1.02)
[2018-06-05 20:52] LABS: EGFR Non-African American 112.5 (>60)
[2018-06-05 20:53] LABS: ABS Basophils 0.1 10^3/ul (0-0.2); ABS Eosinophils 0.2 10^3/ul (0-0.6); ABS Lymphocytes 3.1 10^3/ul (1.0-4.8); ABS Monocytes 0.9 10^3/ul (0-0.8); ABS Neutrophils 6.5 10^3/ul (1.5-7.7); ABS Nucleated RBC 0 10^3/ul; Eosinophil % 1.9 % (0-6); Lymphocyte % 28.7 % (25-47); Nucleated Red Blood Cells % 0.1
[2018-06-05] MEDS ORDERED: Morphine INJ* 4 MG/ML 1 ML SYRINGE (NEW SYRINGE VERSION) IV ONE ×2 (21:04→23:22)
[2018-06-05] MEDS ORDERED: NS 0.9% 1000 ML* 2,000 ML IV ONE (21:04)
[2018-06-05] MEDS ORDERED: Ondansetron INJ* 2 MG/ML VIAL IV ONE (21:04)
[2018-06-05] MEDS ORDERED: Insulin REGULAR(*) 1 UNITS UNIT IV PUSH ONE (21:13)
--- NOTE | 2018-06-05 21:24 | ED ---
Abdominal Pain/Male - HPI Summary HPI Summary: This patient is a 43 year old M BIBA to [facility] accompanied by girlfriend with a chief complaint of abd pain that began this morning and worsened at 1700. The patient rates the pain 8/10 in severity. Symptoms aggravated by nothing. Symptoms alleviated by nothing. Patient reports dizziness. Patient denies nausea , vomiting, diarrhea, CP, and fever. Patient states he has chronic pancreatitis. - History of Current Complaint Chief Complaint: EDAbdPain Stated Complaint: ABD/BACK PAIN Time Seen by Provider: 06/05/18 20:37 Hx Obtained From: Patient Onset/Duration: Sudden Onset, Lasting Hours, Still Present Timing: Constant Severity Initially: Severe Severity Currently: Severe Pain Intensity: 8 Pain Scale Used: 0-10 Numeric Location: Diffuse Radiates: No Aggravating Factor(s): Nothing Alleviating Factor(s): Nothing Associated Signs And Symptoms: Positive: Other - Positive abd pain and dizziness. Negative nausea, vomiting, diarrhea, CP, and fever. - Allergies/Home Medications Allergies/Adverse Reactions: Allergies Allergy/AdvReac Type Severity Reaction Status Date / Time acetaminophen [From Tylenol] AdvReac Intermediate GI Upset Verified 05/11/18 13: 35 codeine AdvReac Intermediate GI Upset Verified 05/11/18 13:35 ibuprofen AdvReac Intermediate GI Upset Verified 05/11/18 13:35 PMH/Surg Hx/FS Hx/Imm Hx Previously Healthy: No Endocrine/Hematology History: Reports: Hx Diabetes - type 1, 2ndry to pancreatitis; h/o DKA, Other Endocrine/Hematological Disorders - pancreatitis, h /o necrotysing Denies: Hx Thyroid Disease Cardiovascular History: Reports: Hx Hypercholesterolemia Denies: Hx Congestive Heart Failure, Hx Hypertension Respiratory History: Denies: Hx Asthma, Hx Chronic Obstructive Pulmonary Disease (COPD) GI History: Reports: Hx Gastroesophageal Reflux Disease, Other GI Disorders - Pancreatitis - chronic, splenic necrosis Denies: Hx Ulcer History: Denies: Hx Dialysis, Hx Renal Disease Sensory History: Denies: Hx Cataracts, Hx Contacts or Glasses, Hx Eye Injury, Hx Eye Prosthesis, Hx Glaucoma, Hx Legally Blind, Hx Macular Degeneration, Hx Vision Problem, Hx Deafness, Hx Hearing Aid, Hx Hearing Problem, Other Sensory Impairments Opthamlomology History: Denies: Hx Cataracts, Hx Contacts or Glasses, Hx Eye Injury, Hx Eye Prosthesis, Hx Glaucoma, Hx Legally Blind, Hx Macular Degeneration, Hx Vision Problem, Other Sensory Impairments Neurological History: Denies: Hx Dementia, Hx Developmental Delay, Hx Headaches, Hx Migraine, Hx Nerve Disease, Hx Seizures, Hx Spinal Cord Injury, Hx Transient Ischemic Attacks (TIA), Other Neuro Impairments/Disorders Psychiatric History: Reports: Hx Depression - Surgical History Surgery Procedure, Year, and Place: skin grafting at 18 months of age on forehead, PIECE OF PANCREAS REMOVED 08/2014 @ [place], [place] Hx Anesthesia Reactions: No - Immunization History Date of Tetanus Vaccine: utd Date of Influenza Vaccine: fall 2016 Infectious Disease History: No Infectious Disease History: Denies: Hx Clostridium Difficile, Hx Hepatitis, Hx Human Immunodeficiency Virus (HIV), Hx of Known/Suspected MRSA, Hx Shingles, Hx Tuberculosis, Traveled Outside the [place] in Last 30 Days - Family History Known Family History: Positive: Other - brother high triglycerides (>1,000) - Social History Occupation: Unemployed Lives: With Family Alcohol Use: None Hx Substance Use: Yes Substance Use Type: Reports: Marijuana Substance Use Comment - Amount & Last Used: Marijuana used occasionally to increase appetite and treat pain Hx Tobacco Use: Yes - trying to cut down/quit - 3 a day as of late Smoking Status (MU): Heavy Every Day Tobacco Smoker Type: Cigarettes Amount Used/How Often: 1/2 ppd Have You Smoked in the Last Year: Yes Review of Systems Negative: Fever Negative: Chest Pain Positive: Abdominal Pain. Negative: Vomiting, Diarrhea, Nausea Neurological: Other - Positive dizziness All Other Systems Reviewed And Are Negative: Yes Physical Exam - Summary Physical Exam Summary: Appearance: Well appearing, no pain distress Skin: warm, dry, reflects adequate perfusion Head/face: normal Eyes: EOMI, ZAINAB ENT: normal Neck: supple, non-tender Respiratory: CTA, breath sounds present Cardiovascular: RRR, pulses symmetrical Abdomen: diffuse abdominal tenderness, soft Bowel: present Musculoskeletal: normal, strength/ROM intact Neuro: normal, sensory motor intact, A&Ox3 Triage Information Reviewed: Yes Vital Signs On Initial Exam: Initial Vitals Temp Pulse Resp BP Pulse Ox 98.4 F 100 18 132/90 99 06/05/18 18:19 06/05/18 18:19 06/05/18 18:19 06/05/18 18:19 06/05/18 18:19 Vital Signs Reviewed: Yes Diagnostics - Vital Signs Vital Signs Temp Pulse Resp BP Pulse Ox 06/05/18 18:19 98.4 F 100 18 132/90 99 - Laboratory Lab Results: Lab Results 06/05/18 06/05/18 06/05/18 Range/Units 19:55 19:55 19:55 WBC 10.8 (3.5-10.8) 10^3/ul RBC 5.09 (4.00-5.40) 10^6/ul Hgb 16.4 (14.0-18.0) g/dl Hct 46 (42-52) % MCV 89 (80-94) fL MCH 32 H (27-31) pg MCHC 36 (31-36) g/dl RDW 14 (10.5-15) % Plt Count 316 (150-450) 10^3/ul MPV 8.8 (7.4-10.4) um3 Neut % (Auto) 60.0 (38-83) % Lymph % (Auto) 28.7 (25-47) % Pierce % (Auto) 8.1 H (0-7) % Eos % (Auto) 1.9 (0-6) % Baso % (Auto) 1.3 (0-2) % Absolute Neuts (auto) 6.5 (1.5-7.7) 10^3/ul Absolute Lymphs (auto) 3.1 (1.0-4.8) 10^3/ul Absolute Monos (auto) 0.9 H (0-0.8) 10^3/ul Absolute Eos (auto) 0.2 (0-0.6) 10^3/ul Absolute Basos (auto) 0.1 (0-0.2) 10^3/ul Absolute Nucleated RBC 0 10^3/ul Nucleated RBC % 0.1 INR (Anticoag Therapy) 0.93 (0.77-1.02) APTT 28.2 (26.0-36.3) seconds Sodium 123 L D (135-145) mmol/L Potassium TNP Chloride 85 L (101-111) mmol/L Carbon Dioxide 21 L (22-32) mmol/L Anion Gap 17 H (2-11) mmol/L BUN 13 (6-24) mg/dL Creatinine 0.76 (0.67-1.17) mg/dL Est GFR ( Amer) 136.1 (>60) Est GFR (Non-Af Amer) 112.5 (>60) BUN/Creatinine Ratio 17.1 (8-20) Glucose 543 H* (70-100) mg/dL Calcium 9.6 (8.6-10.3) mg/dL Total Bilirubin 0.70 (0.2-1.0) mg/dL AST TNP ALT 147 H (7-52) U/L Alkaline Phosphatase 239 H (34-104) U/L Troponin I 0.01 (<0.04) ng/mL Total Protein 7.6 (6.4-8.9) g/dL Albumin 4.3 (3.2-5.2) g/dL Globulin 3.3 (2-4) g/dL Albumin/Globulin Ratio 1.3 (1-3) Lipase 92 H (11.0-82.0) U/L Result Diagrams: 06/05/18 19:55 06/05/18 21:46 Lab Statement: Any lab studies that have been ordered have been reviewed, and results considered in the medical decision making process. - CT CT Abdomen and Pelvis CT Interpretation Completed By: Radiologist Summary of CT Findings: CT abdomen and pelvis reveals, per radiologist, 1. Subtle findings of possible antral gastritis and proximal duodenitis versus peptic ulcer disease. 2. Dilated jejunum with no transition zone may be physiologic. 3. Sequela from prior pancreatitis with small pancreatic tail focus likely a tiny pseudocyst or focal main ductal dilation. ACR White Paper guidelines (Faye, et al. JACR 2010; 7(10):754-79) suggest a single follow-up abdominal MRI in 1 year. A limited T2-weighted MRI can be performed for routine follow-up. 4. Multiple reactive mesenteric lymph nodes. ED physician has reviewed this radiology report. Re-Evaluation - Re-Evaluation First Eval Re-Evaluation Time: 23:40 Change: Unchanged Comment: Patient states that when he was seen in [facility] yesterday they told him "there was nothing to do" and he was discharged. Abdominal Pain Fem Course/Dx - Course Course Of Treatment: This patient is a 43 year old M BIBA to [facility] accompanied by girlfriend with a chief complaint of abd pain that began this morning and worsened at 1700. Patient states he has chronic pancreatitis. Physical Exam Findings: Diffuse abdominal tenderness. CT abdomen and pelvis reveals, per radiologist, 1. Subtle findings of possible antral gastritis and proximal duodenitis versus peptic ulcer disease. 2. Dilated jejunum with no transition zone may be physiologic. 3. Sequela from prior pancreatitis with small pancreatic tail focus likely a tiny pseudocyst or focal main ductal dilation. ACR White Paper guidelines (Daeland, et al. JACR 2010; 7(10):565-52) suggest a single follow-up abdominal MRI in 1 year. A limited T2-weighted MRI can be performed for routine follow-up. 4. Multiple reactive mesenteric lymph nodes. Bloodwork and UA obtained. In the ED course the patient was given insulin, contrast, fluids, morphine, and Zofran. Consult with Dr. Giron (hospitalist) at 2330. She agrees to admit pt for further observation. Consult with Dr. Giron ( hospitalist) at 2335. She requests that we speak to the patient about why he was seen here yesterday. Consult with Dr. Giron (hospitalist) at 2343. She communicated that the patient had been transferred to [facility] yesterday, and requests the results of his stay there. The patient is agreeable with this plan. - Diagnoses Provider Diagnoses: Abdominal pain, DKA (diabetic ketoacidoses), Pancreatitis - Provider Notifications Discussed Care Of Patient With: Sugar Giron Time Discussed With Above Provider: 23:35 Instructed by Provider To: Other - Consult with Dr. Giron (hospitalist) at 2330. She agrees to admit pt for further observation. Consult with Dr. Giron ( hospitalist) at 2335. She requests that we speak to the patient about why he was seen here yesterday. Consult with Dr. Giron (hospitalist) at 2343. She communicated that the patient had been transferred to [facility] yesterday, and requests the results of his stay there. Discharge - Sign-Out/Discharge Documenting (check all that apply): Patient Departure - Admit to [facility] - Discharge Plan Condition: Stable Disposition: ADMITTED TO [facility] Referrals: Don Heller MD [Primary Care Provider] - - Attestation Statements Document Initiated by Scribe: Yes Documenting Scribe: Emily Hall Provider For Whom Scribe is Documenting (Include Credential): Con Dunbar MD Scribe Attestation: I, Emily Hall, scribed for Con Dunbar MD on 06/06/18 at 0005.
[2018-06-05] MEDS ORDERED: Iodixanol* (CONTRAST) 320 MG/ML 100 ML SDV IV ONE (21:45)
--- NOTE | 2018-06-05 22:46 | RAD ---
EXAM: CT Abdomen and Pelvis With Intravenous Contrast EXAM DATE/TIME: 06/05/2018 10:04 PM CLINICAL HISTORY: 43 years old, male; Pain; Abdominal pain; Acute; Additional info: Abd pain/pancreatitis TECHNIQUE: Axial computed tomography images of the abdomen and pelvis with intravenous contrast. All CT scans at this facility use at least one of these dose optimization techniques: automated exposure control; mA and/or kV adjustment per patient size (includes targeted exams where dose is matched to clinical indication); or iterative reconstruction. Coronal and sagittal reformatted images were created and reviewed. CONTRAST: 100 ml of VISIPAQUE 320 administered intravenously. COMPARISON: A/P W CT ABD/PEL W 03/31/2018 7:44 PM FINDINGS: Lower thorax: No acute findings. ABDOMEN: Liver: Normal. No mass. Gallbladder and bile ducts: Normal. No calcified stones. No ductal dilation. Pancreas: Atrophic pancreatic tail again seen. No pancreatic masses or peripancreatic stranding. Cystic focus in the pancreatic tail measures 0.8 cm (series 2, image 26) not seen previously. Spleen: Findings of splenosis which again is seen within an encapsulated fluid collection. No adjacent stranding. Adrenals: Normal. No mass. Kidneys and ureters: Left lower pole simple renal cyst measures 2.3 cm (series 2, image 46) unchanged from prior study. No calculi or pelvocaliectasis. Stomach and bowel: Mildly thickwalled gastric antrum and duodenal bulb without adjacent stranding. Remaining stomach is normal. Dilated proximal jejunal small bowel loop measuring up to 4 cm which slowly transition to a normal caliber. Remaining small bowel is normal in caliber. No segmental wall thickening or masses throughout the colon. Appendix: Normal caliber appendix without wall thickening or adjacent inflammation. PELVIS: Bladder: Mildly thickwalled urinary bladder without perivesicular stranding. Reproductive: Normal sized prostate. Normal seminal vesicles. ABDOMEN and PELVIS: Intraperitoneal space: Normal. No free air. No significant fluid collection. Bones/joints: No fractures. No suspicious bone lesions. Soft tissues: Normal. No hernia. Vasculature: Normal caliber aorta with no evidence of dissection or rupture. Patent IVC. Circumaortic left renal vein. Lymph nodes: Numerous subcentimeter mesenteric lymph nodes again seen. No enlarged. IMPRESSION: 1. Subtle findings of possible antral gastritis and proximal duodenitis versus peptic ulcer disease. 2. Dilated jejunum with no transition zone may be physiologic. 3. Sequela from prior pancreatitis with small pancreatic tail focus likely a tiny pseudocyst or focal main ductal dilation. ACR White Paper guidelines (Daeland, et al. JACR 2010; 7(10):754-42) suggest a single follow-up abdominal MRI in 1 year. A limited T2-weighted MRI can be performed for routine follow-up. 4. Multiple reactive mesenteric lymph nodes. To contact [facility] with a general question: Operations Center - [phone] For direct physician to physician contact: Physician Hotline - [phone] [facility] (ad Facility ID #[id number])
[2018-06-06 00:23] LABS: Urine Appearance Clear; Urine Blood Negative (Negative); Urine Color Straw; Urine Ketones 1+ (Negative); Urine Protein Negative (Negative); Urine Specific Gravity 1.036 (1.010-1.030); Urine Urobilinogen Negative (Negative)
[2018-06-06] MEDS ORDERED: Dextrose 50% Syringe 50 ML* 25 GM/50 ML SYRINGE IV PUSH PRN ×2 (00:36→00:39)
[2018-06-06] MEDS ORDERED: Promethazine TAB* 25 MG PO PRN (00:39)
[2018-06-06] MEDS ORDERED: Insulin LISPRO* 1 UNITS UNIT SUBCUT ONE (00:39)
[2018-06-06] MEDS ORDERED: Acetaminophen TAB* 325 MG PO PRN (00:41)
[2018-06-06] MEDS ORDERED: Insulin GLARGINE(*) 1 UNITS UNIT SUBCUT SCH ×2 (01:00→09:00)
[2018-06-06] MEDS ORDERED: Ondansetron INJ* 2 MG/ML VIAL IV PRN (01:05)
[2018-06-06] MEDS: HYDROmorphone INJ1* 1 MG/ML SYRINGE IV SLOW PU PRN ×6 (01:24→23:24)
[2018-06-06] MEDS: Pantoprazole IV* 40 MG IV SCH ×2 (01:56→15:25)
[2018-06-06] MEDS: NS 0.9% 1000 ML* 1,000 ML IV SCH ×2 (02:08→10:39)
--- NOTE | 2018-06-06 03:51 | HP ---
CC: Dr. Azael Olvera, [facility]; Dr. Crenshaw; Dr. Don Heller * HISTORY AND PHYSICAL: DATE OF ADMISSION: 06/06/18 PRIMARY CARE PROVIDER: Dr. Azael Olvera from [facility]. CHIEF COMPLAINT: Abdominal pain, nausea, vomiting. HISTORY OF PRESENT ILLNESS: Ryder Chinchilla is a 43-year-old male with history of chronic pancreatitis, who had multiple recent hospitalizations including most recent transfer to [facility] that occurred on 06/04/18 that lasted less than 24 hours. He presents complaining of worsening of abdominal pain and he is going to be admitted with a diagnosis of uncontrolled diabetes and abdominal pain and gastritis. Please note that from 05/14/18 to 05/23/18, the patient was at [facility] in [place] where he had extensive evaluation including upper endoscopy as well as endoscopic ultrasound, which showed chronic pancreatitis, possibility of gallbladder sludge as well as pancreas divisum and triglyceridemia. Multiple collateral vessels were noted. Pancreas divisum could not be ruled out. 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 There was no cholelithiasis or choledocholithiasis noted. The patient was seen by gastroenterology team. He was noted to be in need of following up with Gastroenterology locally. After his hospital stay and discharge on 05/23/18, the patient was seen in our facility on 06/02/18 for uncontrollable pain. His lab work was consistent with prior with mild elevation of LFTs as well as mild elevation of lipase. The patient was discharged to follow up with [facility]. On 06/04/18, he was seen in our emergency department with glucose level of 1000, pseudohyponatremia due to that. At that point, he was transferred to [facility] for further evaluation. The patient stated that he was in the ICU at [facility] for less than a day. He was discharged the same day. He stated that he did not sign against medical advice. He stated that his sugars were better controlled at that point with his sugars being [address] [facility]. He also continues to complain of abdominal pain. He was told that all that could be done for him is conservative management with pain medications. On 06/05/18, he re-presented once again to our facility with uncontrollable abdominal pain and his sugars in the 600s. The patient stated that his chronic abdominal pain is 7/10 in intensity on any given day and currently, his pain is at 10/10 in intensity. He has had intermittent nausea and vomiting and he vomited 3 times in the past 24 hours. His stools are loose and this is usual for him. He has 1 bowel movement a day. He request evaluation by a pain specialist. He stated that he was planning to see Dr. Crenshaw, but he did not make it to the appointment yet. He also states that his Dilaudid that he takes at home every 4 hours does not make the pain more tolerable even when he uses 80 mg dose at a time. He stated that he still has a couple of tablets left at home. PAST MEDICAL HISTORY: 1. Notable for familial hypertriglyceridemia. 2. 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 Moran of [facility]. 3. Subsequently, the patient developed insulin dependent diabetes mellitus that had been poorly controlled. 4. The patient functionally . 5. The patient has chronic abdominal pain with insurance that will cover on 7 days at a time. 6. History of large pancreatic pseudocyst that was drained in December of 2017 after the patient was transferred to [facility]. 7. 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 MEDICATIONS: Include: 1. Insulin Lantus 35 units twice a day. 2. Ursodiol 300 mg 3 times a day. 3. Pancrelipase/Creon 24,000/76,000 one tablet 3 times a day with each meal. 4. Thiamine 100 mg daily. 5. Folate 1 mg daily. 6. Gemfibrozil 600 mg b.i.d. 7. Gabapentin 300 mg 3 times a day. 8. Ergocalciferol 50,000 units weekly. ALLERGIES: Include TYLENOL, CODEINE, IBUPROFEN, all cause GI upset. FAMILY HISTORY: Positive for father with diabetes. Mother at the age of 54 secondary to [place]. Brother has also familial hypertriglyceridemia. SOCIAL HISTORY: The patient lives with his , who is the healthcare proxy. He is with 3 children. 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 He smokes a few cigarettes a day and he has been smoking for over 25 years. REVIEW OF SYSTEMS: Positive for nausea and vomiting 2 to 3 times a day chronically. Positive for chronic abdominal pain at 7/10 in intensity, usually localized in the epigastric area. For the past 24 hours, abdominal pain had been 10/10. Positive for loose bowel movements once a day, chronic. The patient's weight had been relatively stable. The patient denies any shortness of breath, chest pain, or fevers. All the remaining 12 systems were reviewed with the patient and were otherwise negative. PHYSICAL EXAMINATION GENERAL: The patient is a very pleasant 43-year-old male, who is in no acute distress. Alert, awake, and oriented x3. VITAL SIGNS: Blood pressure of 181/91, heart rate of 81 and regular, respiratory rate 18, oxygen saturation 96% on room air, temperature of 98.4. HEENT: Head atraumatic, normocephalic. Eyes: Pupils are equal and reactive to light and accommodation. Oropharynx clear. Mucosa moist. NECK: Supple. No JVD. No bruit bilaterally. RESPIRATORY: Clear to auscultation bilaterally. CARDIOVASCULAR: Regular rate and rhythm. No murmur. ABDOMEN: Soft, diffusely tender with no rebound, no guarding. Bowel sounds present in all 4 quadrants. EXTREMITIES: There is no edema. Pulses +2 bilaterally. There is no clubbing or cyanosis. NEUROLOGIC: On neuro evaluation, speech clear. Cranial nerves II through XII grossly intact. Motor strength is 5/5 bilaterally. SKIN: On evaluation of the skin, the patient has what appears to be a remnant of his nevus on his forehead that is localized on his right eyebrow area. The remaining part of approximately 10 x 10 cm on the center of the patient's forehead are skin changes after skin transplant. There is no infection noted. PSYCHIATRIC: Oriented x3 with no evidence of anxiety or depression. DIAGNOSTIC STUDIES/LAB DATA: White blood cell count of 10.8, hemoglobin 16.4, hematocrit 46, and platelets 316. ABG showed pH of 7.38, pCO2 of 41, pO2 of 84, bicarb of 24.2. Sodium was 123, chloride of 85, carbon dioxide 21, anion gap of 17, BUN 13, creatinine 0.76. Lactic acid was not obtained today and is pending at the time of dictation. Glucose level at admission is currently 438, but it was 543 when the patient presented to the ED. Liver function tests showed AST was unable to be obtained , ALT was 147, alkaline phosphatase of 239. Troponin was 0.01. Triglyceride level is pending. Lipase of 92. CT of the abdomen and pelvis, impression: "Subtle findings of possible antral gastritis and proximal duodenitis versus peptic ulcer disease. Dilated jejunum with non-transition zone may be physiologic. Sequelae from prior pancreatitis with small pancreatic tail focus, likely a tiny pseudocyst or focal main ductal dilatation. Multiple reactive mesenteric lymph nodes." ASSESSMENT AND PLAN: 1. The patient has uncontrolled diabetes. He is going to be restarted on insulin Lantus, which dose he missed while in the ED tonight. He is going to be placed on insulin sliding scale and administered another dose of lispro insulin right now. I am going to treat him with intravenous fluids. The patient states that on a given day, his sugars are usually in the 300 range. He never gets hypoglycemic. 2. In regards to chronic pancreatitis, the patient's lipase had been chronically elevated in the past and today's level is similar to prior. He may have exacerbation of mild chronic pancreatitis. 3. The patient's abdominal pain is likely related to gastritis. He is going to be placed on Carafate, Protonix intravenously, and clear liquid diet. He is going to be placed on Dilaudid IV and Dilaudid p.o. He does have chronic uncontrollable pain and it would be great if he were able to see a lead based paint technician during his hospital stay if possible. 4. Hypertriglyceridemia. That is likely uncontrolled due to patient's uncontrolled glycemia at this point. The patients' triglycerides are pending at this point but 24 hours ago were over 5000. We will continue the patient's gemfibrozil and treated with insulin as mentioned above. 5. For DVT prophylaxis, the patient is ambulatory and low risk. TIME SPENT: Approximately 70 minutes were spent on admission of this patient, more than half that time was spent [id number] with the patient during the interview and physical exam. [id number]/[facility] #: [id number] [facility]
[2018-06-06] MEDS: Sucralfate TAB* 1 GM PO SCH ×3 (09:04→21:43)
[2018-06-06] MEDS: Pancrelipase CAP* 5,000 UNITS CAP PO SCH ×4 (09:04→21:41)
[2018-06-06] MEDS: Ursodiol CAP* 300 MG PO SCH ×3 (09:04→21:43)
[2018-06-06] MEDS: Gabapentin CAP(*) 300 MG PO SCH ×3 (09:04→21:43)
[2018-06-06] MEDS: Cholecalciferol TAB* 400 UNIT PO SCH (09:04)
[2018-06-06] MEDS: Insulin LISPRO* 1 UNITS UNIT SUBCUT SCH ×2 (09:05→13:44)
[2018-06-06] MEDS: HYDROmorphone TAB* 4 MG PO PRN ×3 (10:43→22:06)
[2018-06-06] MEDS: Gemfibrozil TAB* 600 MG PO SCH ×2 (10:43→21:43)
--- NOTE | 2018-06-06 12:59 | CONSULT ---
Consult Consult: [facility] Inpatient Consult Note Date of Consult: 06/06/18 Reason for Consult: diabetes, hypertriglyceridemia Reason for Admission: abdominal pain, DKA ASSESSMENT: 43 yo M with familial hypertriglyceridemia syndrome and chronic pancreatitis, now admitted for acute pancreatitis, hypertriglyceridemia and hyperglycemia. High-dose insulin is required to prevent recurrence of hypertriglyceridemia-induced acute pancreatitis. His triglycerides and glucose have been effectively previously controlled as inpatient with high-dose insulin therapy; his insulin requirement was recently estimated to be as high as 2 units /kg/day, which reflects need for both glycemic and non-glycemic actions of insulin. Clinical status at present with high TG and elevated [place]'s criteria indicate need for IV insulin to establish metabolic control. It will be essential to transition patient to SQ insulin that he can use as outpatient, as I suspect insulin non-adherence, dietary non-adherence or both is leading to his frequent presentations. In the future, it is hoped that high-dose basal insulin given once daily will provide enough metabolic control to avoid pancreatitis. We have petitioned his insurance for coverage of a wearable glucose monitor, which may provide some feedback to the patient to allow greater adherence to insulin therapy. PLAN: - transfer to ICU - NPO status - start IV insulin and check BG q1h to maintain BG 100-180 - when triglycerides <800, start Lantus 60 units SQ, then d/c IV insulin 3 hours later - start D5LR+20K at 125ml/hr and continue until liquid diet resumes - check triglycerides q12h - nutrition consult - consider [employer] for pain management - considerin patient pain management consult SUBJECTIVE: History of Present Illness: 43 yo with familial hypertriglyceridemia syndrome leading to pancreatitis, s/p pancreatectomy for necrotizing disease in 2014, now admitted for worsening abdominal pain and hyperglycemia. He has had multiple admissions for these syndromes in the past 3 months and was recently discharged from [facility] after a 10 day admission, during which he received IV insulin for management of DKA and acute- on-chronic pancreatitis. MRCP and imaging studies demonstrated chronic pancreatitis with destruction of the pancreas, chronic splenic infarction with hematoma, and biliary disease (intrapancreatic CBD stricture) -- he was started on ursodiol for these findings. He achieved pain control with hydromorphone IV, then PO. I saw Mr. Chinchilla in clinic on 04/24. In order to titrate insulin and avoid metabolic complications, I recommended Humulin R 20U TID and Humulin N 20U QHS. While at [place], he was stabilized on IV insulin and changed to Lantus 35U BID and Humalog 20U QAC. Since discharge, he has reported hyperglycemia and abdominal pain that is only partially relieved with PO meds. He continues to lose weight and is increasingly frustrated about being sick. He presented to [facility] ED on He has had diabetes since 2001 and has been insulin-dependent since 2016. He has been diagnosed with DKA several times in the setting of severe hyperglycemia. 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 He has been unable to maintain his weight and is 70 lbs below his pre-morbid weight. He is unable tolerate most foods and has lost weight recently. He is currently using high-dose insulin > 1.5 units/kg/day in a basal/bolus insulin analogue regimen. Past Medical History: 1. Hypertriglyceridemia 2. Ffjrs-ha-rknzils pancreatitis 3. Severe insulin-deficient diabetes 4. Chronic abdominal pain Medications Prior to Admission: 2 Gemfibrozil TAB* [Lopid TAB*] 600 mg PO BID 12/23/17 [History Confirmed ] HYDROmorphone TAB* [Dilaudid TAB*] 4 mg PO Q4H PRN #18 tab MDD 6 03/31/18 [Rx Confirmed 06/06/18] Cholecalciferol TAB* [Vitamin D TAB*] 400 unit PO DAILY 05/14/18 [History Confirmed 06/06/18] Insulin glargine 35 units BID Insulin lispro 20 units TID-AC Promethazine TAB* [Phenergan TAB*] 25 mg PO Q8H PRN 05/14/18 [History Confirmed 06/06/18] Inpatient Medications: Cholecalciferol (Vitamin D Tab*) 400 unit PO DAILY [facility] Last Admin: 06/06/18 09:04 Dose: 400 unit Dextrose (D50w Syringe 50 Ml*) 12.5 gm IV PUSH .FOR FS < 60 - SS PRN PRN Reason: FS < 60 Gabapentin (Neurontin Cap(*)) 300 mg PO TID [facility] Last Admin: 06/06/18 09:04 Dose: 300 mg Gemfibrozil (Lopid Tab*) 600 mg PO BID [facility] Last Admin: 06/06/18 10:43 Dose: 600 mg Hydromorphone HCl (Dilaudid Tab*) 4 mg PO Q4H PRN PRN Reason: PAIN Last Admin: 06/06/18 10:43 Dose: 4 mg Hydromorphone HCl (Dilaudid Inj1s*) 1 mg IV SLOW PU Q2H PRN PRN Reason: PAIN Sodium Chloride (Ns 0.9% 1000 Ml*) 1,000 mls @ 125 mls/hr IV PER RATE [facility] Last Admin: 06/06/18 10:39 Dose: 125 mls/hr Insulin Human Regular (Insulin Regular Ivpb) 100 units in 100 mls @ 7.62 mls/ hr IVPB PER RATE ONE Stop: 06/07/18 00:57 Insulin Human Lispro (Humalog*) 0 units SUBCUT [facility]; Protocol Last Admin: 06/06/18 09:05 Dose: 9 units Ondansetron HCl (Zofran Inj*) 4 mg IV Q6H PRN PRN Reason: NAUSEA Pancrelipase (Zenpep Delayed Cap*) 30,000 units PO AC [facility] Last Admin: 06/06/18 09:04 Dose: 30,000 units Pantoprazole Sodium (Protonix Iv*) 40 mg IV Q12H [facility] Last Admin: 06/06/18 01:56 Dose: 40 mg Promethazine HCl (Phenergan Tab*) 25 mg PO Q8H PRN PRN Reason: NAUSEA/VOMITING Sucralfate (Carafate*) 1 gm PO TID [facility] Last Admin: 06/06/18 09:04 Dose: 1 gm Ursodiol (Actigall Cap*) 300 mg PO TID [facility] Last Admin: 06/06/18 09:04 Dose: 300 mg Allergies acetaminophen [From Tylenol] Adverse Reaction (Intermediate, Verified 05/11/18 13:35) GI Upset codeine Adverse Reaction (Intermediate, Verified 05/11/18 13:35) GI Upset ibuprofen Adverse Reaction (Intermediate, Verified 05/11/18 13:35) GI Upset Social History: Family History: hypertriglyceridemia Review of Systems: As above. No fever. OBJECTIVE: Temp Pulse Resp BP Pulse Ox 98.7 F 65 18 106/80 99 06/06/18 09:10 06/06/18 09:10 06/06/18 10:43 06/06/18 09:10 06/06/18 09:10 General: alert, restricted affect oriented, no distress ENT: neck supple, no thyromegaly, no bruit is heard Chest: CTAB, no wheezing or crackles CV: RRR, no murmur Abdomen: soft, acute abdominal pain to light touch Extremities: no edema, distal pulses intact Skin: warm, dry, no rash; forehead skin graft Neuro: grossly intact motor/sensory in extremities Psych: restricted affect, pleasant Labs: WBC 10.8 10^3/ul (3.5-10.8) 06/05/18 19:55 RBC 5.09 10^6/ul (4.00-5.40) 06/05/18 19:55 Hgb 16.4 g/dl (14.0-18.0) 06/05/18 19:55 Hct 46 % (42-52) 06/05/18 19:55 MCV 89 fL (80-94) 06/05/18 19:55 MCH 32 pg (27-31) H 06/05/18 19:55 MCHC 36 g/dl (31-36) 06/05/18 19:55 RDW 14 % (10.5-15) 06/05/18 19:55 Plt Count 316 10^3/ul (150-450) 06/05/18 19:55 MPV 8.8 um3 (7.4-10.4) 06/05/18 19:55 Neut % (Auto) 60.0 % (38-83) 06/05/18 19:55 Lymph % (Auto) 28.7 % (25-47) 06/05/18 19:55 [place] % (Auto) 8.1 % (0-7) H 06/05/18 19:55 Eos % (Auto) 1.9 % (0-6) 06/05/18 19:55 Baso % (Auto) 1.3 % (0-2) 06/05/18 19:55 Absolute Neuts (auto) 6.5 10^3/ul (1.5-7.7) 06/05/18 19:55 Absolute Lymphs (auto) 3.1 10^3/ul (1.0-4.8) 06/05/18 19:55 Absolute Monos (auto) 0.9 10^3/ul (0-0.8) H 06/05/18 19:55 Absolute Eos (auto) 0.2 10^3/ul (0-0.6) 06/05/18 19:55 Absolute Basos (auto) 0.1 10^3/ul (0-0.2) 06/05/18 19:55 Absolute Nucleated RBC 0 10^3/ul 06/05/18 19:55 Nucleated RBC % 0.1 06/05/18 19:55 INR (Anticoag Therapy) 0.93 (0.77-1.02) 06/05/18 19:55 APTT 28.2 seconds (26.0-36.3) 06/05/18 19:55 ABG pH 7.38 (7.35-7.45) 06/05/18 23:50 ABG pCO2 41 mmHg (35-45) 06/05/18 23:50 ABG pO2 84 mmHg (80-100) 06/05/18 23:50 ABG HCO3 24.2 mmol/L (19-31) 06/05/18 23:50 ABG O2 Saturation TNP 06/05/18 23:50 ABG Base Excess -0.8 (-2.0-2.0) 06/05/18 23:50 Sodium 127 mmol/L (135-145) L 06/06/18 12:31 Potassium TNP 06/05/18 21:46 Chloride 98 mmol/L (101-111) L 06/06/18 12:31 Carbon Dioxide 24 mmol/L (22-32) 06/06/18 12:31 Anion Gap 17 mmol/L (2-11) H 06/05/18 19:55 BUN 13 mg/dL (6-24) 06/05/18 19:55 Creatinine 0.55 mg/dL (0.67-1.17) L 06/06/18 12:31 Est GFR ( Amer) 197.7 (>60) 06/06/18 12:31 Est GFR (Non-Af Amer) 163.4 (>60) 06/06/18 12:31 BUN/Creatinine Ratio 17.1 (8-20) 06/05/18 19:55 Glucose 273 mg/dL (70-100) H 06/06/18 12:31 POC Glucose (mg/dL) 263 mg/dL (70-100) H 06/06/18 11:49 Lactic Acid 0.7 mmol/L (0.5-2.0) 06/06/18 01:22 Calcium 8.3 mg/dL (8.6-10.3) L 06/06/18 12:31 Phosphorus 1.8 mg/dL (2.5-5.0) L 06/06/18 12:31 Total Bilirubin 0.70 mg/dL (0.2-1.0) 06/05/18 19:55 AST TNP 06/05/18 21:46 ALT 147 U/L (7-52) H 06/05/18 19:55 Alkaline Phosphatase 239 U/L (34-104) H 06/05/18 19:55 Troponin I 0.01 ng/mL (<0.04) 06/05/18 19:55 Total Protein 7.6 g/dL (6.4-8.9) 06/05/18 19:55 Albumin 4.3 g/dL (3.2-5.2) 06/05/18 19:55 Globulin 3.3 g/dL (2-4) 06/05/18 19:55 Albumin/Globulin Ratio 1.3 (1-3) 06/05/18 19:55 Triglycerides 3792 mg/dL 06/06/18 09:21 Lipase 92 U/L (11.0-82.0) H 06/05/18 19:55 Urine Color Straw 06/06/18 00:08 Urine Appearance Clear 06/06/18 00:08 Urine pH 5.0 (5-9) 06/06/18 00:08 Ur Specific [place] 1.036 (1.010-1.030) H 06/06/18 00:08 Urine Protein Negative (Negative) 06/06/18 00:08 Urine Ketones 1+ (Negative) A 06/06/18 00:08 Urine Blood Negative (Negative) 06/06/18 00:08 Urine Nitrate Negative (Negative) 06/06/18 00:08 Urine Bilirubin Negative (Negative) 06/06/18 00:08 Urine Urobilinogen Negative (Negative) 06/06/18 00:08 Ur Leukocyte Esterase Negative (Negative) 06/06/18 00:08 Urine Glucose 3+(>=500 mg/dl) (Negative) A 06/06/18 00:08
[2018-06-06 13:04] LABS: EGFR Non-African American 163.4 (>60)
[2018-06-06] MEDS ORDERED: Insulin REGULAR(*) 1 UNITS UNIT IV PUSH ONE (13:15)
[2018-06-06] MEDS ORDERED: NS 0.9% w/ 20 Meq KCL 1000 ML* 1,000 ML IV SCH (14:00)
--- NOTE | 2018-06-06 14:50 | PN ---
Hospitalist Progress Note Date of Service: 06/06/18 Pt seen and examined. Gap closed with lantus overnight. TG still very elevated and likely contributing to his pancreatitis pain. Dr. Jade consulted. Transferred to ICU for insulin gtt to get TG under better control Dr. Crenshaw consulted for help with his pain management. suspect noncompliance is big factor in poor control at home.
[2018-06-06] MEDS: Insulin IVPB 100 units/100 ml 100 UNITS/100 ML UNIT IVPB ONE ×2 (15:28→15:49)
[2018-06-06] MEDS: D5LR 20 MEQ KCL 1000 ML BAG* 1,000 ML IV SCH (16:59)
[2018-06-06] MEDS: Potassium & Sodium Phos 250MG* = 1 PACKET PO SCH ×3 (17:11→21:42)
[2018-06-06] MEDS ORDERED: Mouth Piece, Nicotine* 1 EACH CARTRIDGE INH ONE (21:09)
[2018-06-06] MEDS ORDERED: Mouth Piece, Nicotine* 1 EACH CARTRIDGE INH PRN (21:09)
[2018-06-06] MEDS ORDERED: Nicotine Inhaler* 10 MG AMP INH PRN (21:09)
[2018-06-07] MEDS: Pantoprazole IV* 40 MG IV SCH ×2 (01:16→15:52)
[2018-06-07] MEDS: HYDROmorphone INJ1* 1 MG/ML SYRINGE IV SLOW PU PRN ×5 (02:20→12:13)
[2018-06-07] MEDS: D5LR 20 MEQ KCL 1000 ML BAG* 1,000 ML IV SCH ×2 (02:26→09:25)
[2018-06-07] MEDS: HYDROmorphone TAB* 4 MG PO PRN (05:50)
[2018-06-07 06:17] LABS: ABS Basophils 0.1 10^3/ul (0-0.2); ABS Eosinophils 0.4 10^3/ul (0-0.6); ABS Lymphocytes 2.3 10^3/ul (1.0-4.8); ABS Monocytes 1.2 10^3/ul (0-0.8); ABS Neutrophils 6.6 10^3/ul (1.5-7.7); ABS Nucleated RBC 0 10^3/ul; Eosinophil % 3.4 % (0-6); Hematocrit 43 % (42-52); Hemoglobin 15.4 g/dl (14.0-18.0); Lymphocyte % 22.2 % (25-47); Mean Corpuscular HGB Conc 36 g/dl (31-36); Mean Corpuscular Hemoglobin 32 pg (27-31); Mean Corpuscular Volume 89 fL (80-94); Mean Platelet Volume 8.7 um3 (7.4-10.4); Nucleated Red Blood Cells % 0.2; Platelet Count 301 10^3/ul (150-450); Red Blood Count 4.86 10^6/ul (4.00-5.40); Red Cell Distribution Width 15 % (10.5-15); White Blood Count 10.6 10^3/ul (3.5-10.8)
[2018-06-07 06:28] LABS: EGFR Non-African American 142.3 (>60)
[2018-06-07] MEDS ORDERED: Insulin IVPB 100 units/100 ml 100 UNITS/100 ML UNIT IVPB SCH (08:00)
[2018-06-07] MEDS ORDERED: Nicotine PATCH 21 MG/24 HR* PATCH TRANSDERM SCH (08:00)
[2018-06-07] MEDS: Gemfibrozil TAB* 600 MG PO SCH (09:06)
[2018-06-07] MEDS: Gabapentin CAP(*) 300 MG PO SCH ×2 (09:06→15:52)
[2018-06-07] MEDS: Sucralfate TAB* 1 GM PO SCH ×2 (09:06→15:52)
[2018-06-07] MEDS: Cholecalciferol TAB* 400 UNIT PO SCH (09:06)
[2018-06-07] MEDS: Potassium & Sodium Phos 250MG* = 1 PACKET PO SCH ×2 (09:08→12:10)
[2018-06-07] MEDS: Pancrelipase CAP* 5,000 UNITS CAP PO SCH ×2 (09:08→12:13)
[2018-06-07] MEDS: Ursodiol CAP* 300 MG PO SCH ×2 (09:09→15:52)
[2018-06-07 10:53] VITALS: BP 124/81
--- NOTE | 2018-06-07 13:32 | CONSULT ---
Consult Consult: INPATIENT PAIN CONSULTATION Ryder Chinchilla is a 43 year old male. He was diagnosed with diabetes when he was 25 years old. He drank heavily when he was in his 20's and developed pancreatitis as a result. He had recurrent episodes of pancreatitis and quit drinking in 2003. He never went to or other programs. He had surgery for a necrotic part of the pancreas in 2013, and had a second surgery for a splenectomy and removal of more of his pancreas with partial gastrectomy. He has been insulin dependent and has needed to take Pancrease since that time. He has had chronic belly and abdominal pain since. He has had several recent hospitalizations for abdominal pain. Per Dr. Olvera, he was at [facility] from May 14-, had EGD and MRCP c/w pancreatitis. He also had a hospitalization at [facility] June 04 and then was admitted here on June 06 for hypertriglyceridemia, abdominal pain and diabetes. He is on an insulin drip. I am asked to see him in consultation. PAST MEDICAL HISTORY: DM as above, chronic pancreatitis, alcohol abuse (sober since 2002). Skin graft on forehead Allergies Allergy/AdvReac Type Severity Reaction Status Date / Time acetaminophen [From Tylenol] AdvReac Intermediate GI Upset Verified 05/11/18 13: 35 codeine AdvReac Intermediate GI Upset Verified 05/11/18 13:35 ibuprofen AdvReac Intermediate GI Upset Verified 05/11/18 13:35 Current Medications Cholecalciferol (Vitamin D Tab*) 400 unit PO DAILY [facility] Last Admin: 06/07/18 09:06 Dose: 400 unit Dextrose (D50w Syringe 50 Ml*) 12.5 gm IV PUSH .FOR FS < 60 - SS PRN PRN Reason: FS < 60 Gabapentin (Neurontin Cap(*)) 300 mg PO TID [facility] Last Admin: 06/07/18 09:06 Dose: 300 mg Gemfibrozil (Lopid Tab*) 600 mg PO BID [facility] Last Admin: 06/07/18 09:06 Dose: 600 mg Hydromorphone HCl (Dilaudid Tab*) 4 mg PO Q4H PRN PRN Reason: PAIN Last Admin: 06/07/18 05:50 Dose: 4 mg Hydromorphone HCl (Dilaudid Inj1s*) 1 mg IV SLOW PU Q2H PRN PRN Reason: PAIN Last Admin: 06/07/18 12:13 Dose: 1 mg Potassium Cl/Dextrose/Lact Ringer's (D5lr 20 Meq Kcl 1000 Ml Bag*) 1,000 mls @ 125 mls/hr IV PER RATE [facility] Last Admin: 06/07/18 09:25 Dose: 125 mls/hr Insulin Human Regular (Insulin Regular Ivpb) 100 units in 100 mls @ 7.62 mls/ hr IVPB Q13H [facility] Last Admin: 06/07/18 09:08 Dose: 4 mls/hr Nicotine (Nicotine Patch 21 Mg/24 Hr*) 1 patch TRANSDERM DAILY@0800 [facility] Last Admin: 06/07/18 09:08 Dose: Not Given Nicotine (Nicotine Inhaler*) 10 mg INH Q2H PRN PRN Reason: CRAVING Last Admin: 06/06/18 21:37 Dose: 10 mg Ondansetron HCl (Zofran Inj*) 4 mg IV Q6H PRN PRN Reason: NAUSEA Pancrelipase (Zenpep Delayed Cap*) 30,000 units PO AC [facility] Last Admin: 06/07/18 12:13 Dose: 30,000 units Pantoprazole Sodium (Protonix Iv*) 40 mg IV Q12H [facility] Last Admin: 06/07/18 01:16 Dose: 40 mg Pharmacy Profile Note (Nicotine Patch Removal Note*) 1 note PATCH OFF 0800 [facility] Potassium Phos/Sodium Phos (Neutra Phos 250 Mg Ear[place]*) 250 mg PO QID [facility] Last Admin: 06/07/18 12:10 Dose: Not Given Promethazine HCl (Phenergan Tab*) 25 mg PO Q8H PRN PRN Reason: NAUSEA/VOMITING Sucralfate (Carafate*) 1 gm PO TID [facility] Last Admin: 06/07/18 09:06 Dose: 1 gm Ursodiol (Actigall Cap*) 300 mg PO TID [facility] Last Admin: 06/07/18 09:09 Dose: Not Given SOCIAL HISTORY: Smokes 6-8 cigarettes a day, doesn't drink. Lives with his in an apartment. OOW. Vital Signs Temp Pulse Resp BP Pulse Ox 98.6 F 77 18 124/81 95 06/07/18 08:00 06/07/18 10:01 06/07/18 12:13 06/07/18 10:00 06/07/18 10:01 EXAM: GENERAL: alert, oriented. Minimal distress LUNGS: clear HEART: regular rhythm ABDOMEN: Soft, tenderness. Scar over belly EXTREMITIES: normal muscle tone NEUROLOGIC: sensation appeared intact. Can move 4 extremities. No focal weakness ASSESSMENT: 1. Chronic Pancreatitis 2. Abdominal Pain PLAN: Given his multiple abdominal surgeries, not sure how much he absorbs of oral pain pills. Will try a Fentanyl patch, 25 mcg/hr and try to cut back on oral (and IV) Dilaudid. He has a history of alcohol use so is at higher risk for chronic opioids, but appears to have real source for abdominal pain. I will follow.
[2018-06-07] MEDS ORDERED: HYDROmorphone INJ1* 1 MG/ML SYRINGE IV SLOW PU PRN (13:48)
[2018-06-07] MEDS ORDERED: HYDROmorphone TAB* 4 MG PO PRN (13:51)
[2018-06-07] MEDS ORDERED: fentaNYL PATCH 25 MCG/HR TRANSDERM SCH (14:00)
[2018-06-07] MEDS ORDERED: fentaNYL Patch Check Q Shift 1 NOTE SCH (19:00)
--- NOTE | 2018-06-08 07:31 | CONSULT ---
Consult Consult: Endocrinolology Inpatient Follow-Up Note Date of Service: 06/07/18 (catch-up note) Patient seen and evaluated at 14:00 on 06/07/18. This catch-up note documents my evaluation of the patient at that time before he absconded from ICU at approximately 16:00. ASSESSMENT: 43 yo with familial hypertriglyceridemia, chronic pancreatitis, pancreoprivic diabetes, admitted for acute abdominal pain, hypertriglyceridemia and hyperglycemia. His lipids and glucose correlate with severity of abdominal pain. Basal insulin requirement of 60 units/day was affirmed by insulin drip rates of 3-4 units/hr while NPO = 60-80 units/day. This dose should be delivered once-daily regardless of dietary status. Insulin pump is not needed at this time and would only complicate management. on-adherence to diet remains a significant barrier to care -- he requires an [id number] diet (<25g fat/day ) to manage metabolic lipid disorder. Patient was initially skeptical of this, stating that he would be unable to follow both low-fat and low-carbohydrate diet , but willing to focus on low-fat dietary recommendations as an outpatient. We discussed methods to improve glucose control and detection of hyperglycemia, as his glucose correlates well with metabolic status and abdominal pain. PLAN: - Lantus 60 units/day - Humalog 20 units/meal - low-fat diet <25g/day - resume gemfibrozil SUBJECTIVE: Patient reports significant improvement in abdominal pain in the past 24 hours while on insulin drip at rates of ~4 units/hr. He has resumed clear liquid diet. He remains frustrated with inpatient care and states his belief that inpatient care decisions do not help him outside the hospital. Pain management continues to be a source of frustration. He has been unable to maintain his weight and manage abdominal pain with low-fiber, high-fat, low- sugar diet. He is adherent to his medications, including insulin. Nutrition and PMR consults done and appreciated. OBJECTIVE: Temp Pulse Resp BP Pulse Ox 98.6 F 77 18 124/81 95 06/07/18 08:00 06/07/18 10:01 06/07/18 15:00 06/07/18 10:00 06/07/18 10:01 GEN: appears comfortable ENT: neck veins flat CHEST: clear anteriorly CV: RRR ABD: soft, mild-moderate tenderness in upper quadrants, infrequent bowel sounds EXT: no edema PSY: restricted affect WBC 10.6 10^3/ul (3.5-10.8) 06/07/18 05:43 RBC 4.86 10^6/ul (4.00-5.40) 06/07/18 05:43 Hgb 15.4 g/dl (14.0-18.0) 06/07/18 05:43 Hct 43 % (42-52) 06/07/18 05:43 MCV 89 fL (80-94) 06/07/18 05:43 MCH 32 pg (27-31) H 06/07/18 05:43 MCHC 36 g/dl (31-36) 06/07/18 05:43 RDW 15 % (10.5-15) 06/07/18 05:43 Plt Count 301 10^3/ul (150-450) 06/07/18 05:43 MPV 8.7 um3 (7.4-10.4) 06/07/18 05:43 Neut % (Auto) 62.2 % (38-83) 06/07/18 05:43 Lymph % (Auto) 22.2 % (25-47) L 06/07/18 05:43 [place] % (Auto) 11.0 % (0-7) H 06/07/18 05:43 Eos % (Auto) 3.4 % (0-6) 06/07/18 05:43 Baso % (Auto) 1.2 % (0-2) 06/07/18 05:43 Absolute Neuts (auto) 6.6 10^3/ul (1.5-7.7) 06/07/18 05:43 Absolute Lymphs (auto) 2.3 10^3/ul (1.0-4.8) 06/07/18 05:43 Absolute Monos (auto) 1.2 10^3/ul (0-0.8) H 06/07/18 05:43 Absolute Eos (auto) 0.4 10^3/ul (0-0.6) 06/07/18 05:43 Absolute Basos (auto) 0.1 10^3/ul (0-0.2) 06/07/18 05:43 Absolute Nucleated RBC 0 10^3/ul 06/07/18 05:43 Nucleated RBC % 0.2 06/07/18 05:43 INR (Anticoag Therapy) 0.93 (0.77-1.02) 06/05/18 19:55 APTT 28.2 seconds (26.0-36.3) 06/05/18 19:55 ABG pH 7.38 (7.35-7.45) 06/05/18 23:50 ABG pCO2 41 mmHg (35-45) 06/05/18 23:50 ABG pO2 84 mmHg (80-100) 06/05/18 23:50 ABG HCO3 24.2 mmol/L (19-31) 06/05/18 23:50 ABG O2 Saturation TNP 06/05/18 23:50 ABG Base Excess -0.8 (-2.0-2.0) 06/05/18 23:50 Sodium 135 mmol/L (135-145) D 06/07/18 05:43 Potassium TNP 06/07/18 05:43 Chloride 102 mmol/L (101-111) 06/07/18 05:43 Carbon Dioxide 26 mmol/L (22-32) 06/07/18 05:43 Anion Gap 7 mmol/L (2-11) 06/07/18 05:43 BUN 9 mg/dL (6-24) 06/07/18 05:43 Creatinine 0.62 mg/dL (0.67-1.17) L 06/07/18 05:43 Est GFR ( Amer) 172.1 (>60) 06/07/18 05:43 Est GFR (Non-Af Amer) 142.3 (>60) 06/07/18 05:43 BUN/Creatinine Ratio 14.5 (8-20) 06/07/18 05:43 Glucose 97 mg/dL (70-100) 06/07/18 05:43 POC Glucose (mg/dL) 332 mg/dL (70-100) H 06/07/18 15:09 Lactic Acid 0.7 mmol/L (0.5-2.0) 06/06/18 01:22 Calcium 9.0 mg/dL (8.6-10.3) 06/07/18 05:43 Phosphorus 1.8 mg/dL (2.5-5.0) L 06/06/18 12:31 Magnesium 1.9 mg/dL (1.9-2.7) 06/07/18 05:43 Total Bilirubin 0.50 mg/dL (0.2-1.0) 06/07/18 05:43 AST TNP 06/07/18 05:43 ALT 90 U/L (7-52) H 06/07/18 05:43 Alkaline Phosphatase 197 U/L (34-104) H 06/07/18 05:43 Troponin I 0.01 ng/mL (<0.04) 06/05/18 19:55 Total Protein 7.1 g/dL (6.4-8.9) 06/07/18 05:43 Albumin 3.9 g/dL (3.2-5.2) 06/07/18 05:43 Globulin 3.2 g/dL (2-4) 06/07/18 05:43 Albumin/Globulin Ratio 1.2 (1-3) 06/07/18 05:43 Triglycerides 2115 mg/dL 06/07/18 05:43 Lipase 67 U/L (11.0-82.0) 06/07/18 05:43 Urine Color Straw 06/06/18 00:08 Urine Appearance Clear 06/06/18 00:08 Urine pH 5.0 (5-9) 06/06/18 00:08 Ur Specific [place] 1.036 (1.010-1.030) H 06/06/18 00:08 Urine Protein Negative (Negative) 06/06/18 00:08 Urine Ketones 1+ (Negative) A 06/06/18 00:08 Urine Blood Negative (Negative) 06/06/18 00:08 Urine Nitrate Negative (Negative) 06/06/18 00:08 Urine Bilirubin Negative (Negative) 06/06/18 00:08 Urine Urobilinogen Negative (Negative) 06/06/18 00:08 Ur Leukocyte Esterase Negative (Negative) 06/06/18 00:08 Urine Glucose 3+(>=500 mg/dl) (Negative) A 06/06/18 00:08
[2018-06-08] MEDS ORDERED: Nicotine Patch Removal NOTE PATCH OFF SCH (08:00)
--- NOTE | 2018-06-08 09:41 | DS ---
DISCHARGE SUMMARY: DATE OF ADMISSION: 06/06/18 DATE OF DISCHARGE: 06/07/18 ADMITTING PROVIDER: Sugar Giron MD CONSULTING BIODIESEL DIVISION MANAGER: Dr. Rodrigo Jade. CONSULTING TOWING PILOT: Dr. Crenshaw. PRIMARY CARE PHYSICIAN: Dr. Don Heller. ATTENDING PHYSICIAN ON DAY OF DISCHARGE: Azael Olvera MD. CHIEF COMPLAINT: Abdominal pain, nausea, and vomiting. PRINCIPAL DIAGNOSES: Acute on chronic pancreatitis in the setting of hypertriglyceridemia resulted in abdominal pain, nausea, vomiting; uncontrolled diabetes mellitus; medication noncompliance. HISTORY OF PRESENT ILLNESS AND HOSPITAL COURSE: Ryder Chinchilla is a 43-year- old male with past medical history of chronic pancreatitis who has had multiple hospitalizations in the ED visits brought to this facility and including transfers to [facility] in [facility]. He had been seen twice in the ED over the weekend and was ultimately transferred to [facility] for admission that lasted for seemingly less than 12 hours after concern for glucose above 1000 and potassium, which he relates was 10, though this was likely just uninterpretable sample. He has a history of chronic necrotic pancreatitis, liquefied spleen, pancreas divisum could not be ruled out, followed most recently at the [facility] after referral from primary care provider, Dr. Don Heller. He has notably been difficult to manage with his diabetes, he has never brought in a logbook, frequently complains that his glucometer is broken and has admitted frustration with his entire medical condition, which leads him sometimes to feel hopeless and frustrated and believing that insulin does not work for him or that he has given up on it. Here he was again found to have hypertriglyceridemia 4589 and glucose of 543 with anion gap of 17 and 1+ ketones in his urine. He got 35 units of Lantus that night and the gap had closed in the morning. On hospital day #[address] Rodrigo Jade who has seen him once in the outpatient setting was consulted and the patient was transferred to the ICU for insulin drip to try to drive down his triglycerides, which is believed to be feeling out of his pancreatitis like pain. He complained of continued abdominal pain though sometimes told the nurse that had resolved and wanting to leave as soon as possible. He intermittently was agitated versus calm. Dr. Crenshaw saw him and recommended fentanyl patch 25 mcg, which the patient seemingly reacted poorly to the suggestion and within an hour fled from the ICU signing at AMA paperwork and refusing to talk to the hospitalist provider, Dr. Olvera for more than 10 seconds before walking out the door stating that he plans to follow up with [place]. He states his blood glucose had been mostly in the mid 100s on the insulin drip, but it did increase from 174 to 332 for one reading just prior to his leaving AM and him concluding that insulin "does not work for him. " Notably, his triglycerides had trended down from 4589 to 3792 to 2316 to 2115 and plan was to transition him to long-acting Lantus after they hit to low 800. He had at the morning just of leaving AM said that his pain was better controlled. He had been getting IV Dilaudid every 2 hours 1 mg, at that time he did have to be convinced to stay stating that he had things to attend to. He is being discharged with a prescription for Prozac 20 mg daily for potential anxiety, depression, and intermittent explosive disorder (perhaps). DISCHARGE MEDICATIONS: Included: 1. Cholecalciferol 400 units p.o. daily, though he states that in the past he does not think this is effective and probably not taking it. 2. Prozac (fluoxetine 20 mg p.o. daily) new. 3. Gabapentin 300 mg p.o. t.i.d. 4. Gemfibrozil 600 mg p.o. b.i.d. 5. Dilaudid 4 mg p.o. q.4 hours p.r.n. 6. Lantus 70 units daily units b.i.d. 7. Nicotine inhaler q.2 hours p.r.n. patch 8. Phenergan 25 mg AR q.4 hours p.r.n. 9. Carafate 1 g p.o. t.i.d. 10. Ursodiol 300 mg p.o. t.i.d. FOLLOWUP: The patient left without discussion of followup. He stated that he planned to seek further followup at the [facility]. He is recommended to follow up with the [facility], Dr. Abraham Crenshaw and Dr. Rodrigo Jade. He also had been referred by Dr. Olvera to Dr. Anderson at [facility] who had evaluated him as outpatient. TIME SPENT: Time spent on leaving AMA documentation 35 minutes. [id number]/CPS #: [id number] JARAD
== END 2018-06-07 15:45 | disposition left against medical advice (07) | DRG 282 ==
LOC: ED 18:14 → MEDTELE 06-06 00:41 → OBSVTOIN 06-06 12:00 → ICU 06-06 13:46
PROVIDERS: ADMIT Internal Medicine; ATTEND Internal Medicine
DX: K85.90 Acute pancreatitis without necrosis or infection, unspecified (principal); K86.1 Other chronic pancreatitis; E11.65 Type 2 diabetes mellitus with hyperglycemia; E78.1 Pure hyperglyceridemia; Z53.21 Procedure and treatment not carried out due to patient leaving prior to being seen by health care provider; K86.89 Other specified diseases of pancreas; D73.5 Infarction of spleen; F17.210 Nicotine dependence, cigarettes, uncomplicated; G89.29 Other chronic pain; R10.9 Unspecified abdominal pain; K21.9 Gastro-esophageal reflux disease without esophagitis; F32.9 Major depressive disorder, single episode, unspecified; E78.00 Pure hypercholesterolemia, unspecified; Z83.49 Family history of other endocrine, nutritional and metabolic diseases; Z56.0 Unemployment, unspecified; Z91.14 Patient's other noncompliance with medication regimen; Z79.4 Long term (current) use of insulin; Z88.5 Allergy status to narcotic agent; Z88.6 Allergy status to analgesic agent; Z83.3 Family history of diabetes mellitus; Z94.89 Other transplanted organ and tissue status; Z82.49 Family history of ischemic heart disease and other diseases of the circulatory system
CPT/HCPCS: 36415; 74177; 80048; 80053; 81003; 82803; 83605; 83690; 83735; 84100; 84478; 84484; 85025; 85610; 85730; 87641; 96374; 96375; 99284; A9270-GY; G0378; J1170; J1815; J2270; J2405; Q9967

== ENCOUNTER 2018-07-14 11:42 | Inpatient (IN) | payer OTHER ==
--- OUTSIDE RECORDS SUMMARY | 2018-07-14 12:06 | XMS REPORT | Continuity of Care Document ---
:1975 External Reference #:[id number] Author Name Georgette Bradley Care Team Providers Name Role Phone Michael Foreman M.D. 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 Payers Type Date Identification Numbers Payment Provider Subscriber Effective: Policy Number: [id number] [employer] Ryder Chinchilla 2018 Medicaid PayID: [id number] [address] [address] [place] [address] Advance Directives Description No Information Available Problems Date Description Provider Status Onset: 03/08/2018 Disorder of spleen Azael Olvera MD Active Onset: 03/08/2018 Type II diabetes mellitus uncontrolled Azael Olvera MD Active Onset: 03/08/2018 Pure hyperglyceridemia Azael Olvera MD Active Onset: 03/08/2018 Other chronic pancreatitis Azael Olvera MD Active Onset: 03/08/2018 Tobacco user Azael Olvera MD Active Onset: 03/08/2018 Mood disorder Azael Olvera MD Active Onset: 04/24/2018 Heartburn Azael Olvera MD Active Onset: 04/24/2018 Nausea and vomiting Azael Olvera MD Active Onset: 06/20/2018 Intermittent explosive disorder Azael Olvera MD Active Onset: 06/20/2018 Recurrent major depressive episodes Azael Olevra MD Active Family History Date Family Member(s) Problem(s) Comments Father Diabetes Type II Mother due to Diabetes () Social History Type Date Description Comments Sex Unknown Marital Status Lives With Occupation unemployed Tobacco Use Start: Unknown Light tobacco smoker (10 or fewer cigarettes/day) Smoking Status Reviewed: 06/20/18 Light tobacco smoker (10 or fewer cigarettes/day) ETOH Use Denies alcohol use Tobacco Use Start: Unknown Light tobacco smoker (10 or fewer cigarettes/day) Recreational Drug Use Regularly uses for pain relief Marijuana Exercise Type/Frequency Exercises regularly walk daily, 3-4 hours Allergies, Adverse Reactions, Alerts Description No Known Drug Allergies Medications Medication Date Status Form Strength Qnty SIG Indications Ordering Provider Freestyle 06/06/ Active Device 1unit use every 8 Wallace Karla/[place] 2018 s hours with MD Kalie prince Monitoring sensor System Freestyle 06/06/ Active Misc 3unit place Wallace Karla/Sensor/Fl 2018 s device on MD Kalie prince Monitoring skin every System 10 days; use with reader every 8 hours Humalog Kwikpen 06/04/ Active Solution 100Unit/M 0-33 units Wallace 2018 Pen-Inject L per sliding MD Kalie scale if eating, 0-13 units per sliding scale if not eating. True Metrix Go 05/30/ Active Kit w/Device 1unit For Type 1 E11.65 Azael Blood Glucose 2017 s Diabetes MD Wade Meter Mellitus, for blood glucose monitoring 4 times a day Protonix 04/24/ Active Tablets DR 40mg 30tab take 1 tab R12 Azael 2018 s daily MD Wade Phenergan 04/24/ Active Solution 25mg/ml 25ml 12.5mg R11.2 Azael 2018 every 6 MD Wade hours as needed for nausea Hydromorphone 04/24/ Active Tablets 4mg 21tab take 1 tab Magali HCL 2018 s every 8 Senner, hours as DO needed for pain Lancets 28G 04/24/ Active Misc 28G 100un use with Wallace 2018 its glucometer, MD Kalie check bs 3-4 times daily Vitamin D 04/24/ Active Capsules 74854Snwx 14cap 1 once Azael (Ergocalciferol 2017 s week MD Wade ) Pen Eloy 03/14/ Active Misc 32G X 6 100un 1 needle Magali 2018 mm its twice a day Senner, DO Gemfibrozil 03/14/ Active Tablets 600mg 60tab 1 tab twice Azael 2018 s a day MD Wade Lancets 03/08/ Active Misc 30G 100un For use E11.65 Azael 2018 its with your MD Wade glucometer Creon / [place] [address] take 1 Unknown 0000 Part 00Unit capsules with meals Gabapentin / Active Capsules 300mg 60cap 1 by mouth Azael 0000 zabrina three times MD Wade a day Folic Acid / Active Tablets 1mg 1 by mouth Unknown 0000 every day Lantus Solostar / Active Solution 100Unit/M 50 units Unknown 0000 Pen-Inject L twice daily Actigall / Active Capsules 300mg not Unknown 0000 taking--1 tab by mouth three times a day Thiamine HCL / Active Tablets 100mg 1 by mouth Unknown 0000 every day Fluoxetine HCL / Active Capsules 20mg 1 by mouth Unknown 0000 every day Ursodiol / Active Capsules 300mg take 1 Unknown 0000 capsule by mouth 3 times per day Carafate / Active Tablets 1gm take 1 Unknown 0000 tablet by mouth 3 times a day Humulin N 04/24/ Hx Suspension 100Unit/M 10ml use 20 E11.65 Wallace 2018 - L units at MD Kalie 05/25/ bedtime 2018 Humulin R 04/24/ Hx Solution 100Unit/M 20ml use 0-33 E11.65 Wallace 2018 - L units a day MD Kalie 06/04/ as per 2018 sliding scale Lantus 03/08/ Hx Solution 100Unit/M 10ml 30U twice a E11.65 Azael 2018 - L jose Olvera MD 2017 Zofran 03/08/ Hx Tablets 4mg 30tab pt states K86.1 Azael Patterson s not MD Wade effective-- 2018 -take 1 tab every 6 hours as needed for vomiting. Hydromorphone / Hx Tablets 4mg 14tab 1 tab by Azael COCHRAN 0000 - s mouth twice MD Wade 04/24/ daily as 2018 needed. Lantus / Hx Solution 100Unit/M 40 unit SQ Unknown 0000 - L daily 2017 Humalog / Hx Solution 100Unit/M sliding Unknown 0000 - L scale. 2017 Lovaza / Hx Capsules 1gm pt not Unknown 0000 - taking--sandra two 2018 capsules by mouth twice a day Vitamin D / Hx 50,000Uni 1 once Unknown 0000 - ts week 2017 Immunizations Description No Information Available Vital Signs Date Vital Result Comment 06/20/2018 10:50am Weight 168.00 lb Heart Rate 82 /min BP Systolic 112 mmHg BP Diastolic 84 mmHg Respiratory Rate 16 /min Body Temperature 99.3 F Pain Level 8 abd/ all over O2 % BldC Oximetry 98 % 05/30/2018 12:41pm Weight 172.00 lb Heart Rate 78 /min BP Systolic 108 mmHg BP Diastolic 84 mmHg Pain Level 8 O2 % BldC Oximetry 96 % 04/24/2018 1:07pm Height 71 inches 5'11" Weight 173.00 lb w/ shoes Heart Rate 87 /min BP Systolic Sitting 117 mmHg BP Diastolic Sitting 81 mmHg BMI (Body Mass Index) 24.1 kg/m2 04/24/2018 11:53am Height 71 inches 5'11" Weight 173.00 lb Heart Rate 90 /min BP Systolic 121 mmHg BP Diastolic 81 mmHg Respiratory Rate 16 /min Body Temperature 98.4 F Pain Level 8 abd/ kidney O2 % BldC Oximetry 98 % BMI (Body Mass Index) 24.1 kg/m2 03/08/2018 2:53pm Height 71 inches 5'11" Weight 182.00 lb Heart Rate 80 /min BP Systolic Sitting 132 mmHg BP Diastolic Sitting 87 mmHg Respiratory Rate 18 /min Body Temperature 98.3 F Pain Level 8 O2 % BldC Oximetry 98 % BMI (Body Mass Index) 25.4 kg/m2 Results Test Date Facility Test Result H/L Range Note Laboratory test 06/20/2018 [facility] Glucose Fingerstick 572 finding Laboratory test 04/24/2018 [facility] Random HI finding Ketones 1.1 Hemoglobin A1c >14.0 High 5-7 Laboratory test 03/08/2018 [facility] Procalcitonin <pending> finding [address] [place] [address] [phone] Procedures Date Code Description Status 07/10/2014 74166 EKG, Interpretation Only Completed 06/01/2014 30788 EKG, Interpretation Only Completed 05/31/2014 56779 EKG, Interpretation Only Completed Encounters Type Date Location Provider Dx Diagnosis Office Visit 06/06/2018 [facility] Sugar Giron, E11.65 Type 2 diabetes 9:15a karri Koch M.D. mellitus with Hospitalists hyperglycemia K85.90 Acute pancreatitis without necrosis or infection, unsp K29.00 Acute gastritis without bleeding Office Visit 04/24/2018 1:00p [facility] Wallace Coch, K86.1 Other chronic Endocrinology of MD pancreatitis [facility] E78.1 Pure hyperglyceridemia E11.65 Type 2 diabetes mellitus with hyperglycemia Office Visit 04/24/2018 11:30a [facility] Azael Olvera, E11.65 Type 2 diabetes [facility] MD mellitus with hyperglycemia K86.1 Other chronic pancreatitis R11.2 Nausea with vomiting, unspecified R12 Heartburn D73.5 Infarction of spleen F17.210 Nicotine dependence, cigarettes, uncomplicated F06.31 Mood disorder due to known physiol cond w depressv features Office Visit 03/08/2018 1:30p [facility] Azaelstevie Olvera, K86.1 Other chronic [facility] MD pancreatitis 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 Klever K85.90 Acute pancreatitis 11:11a Assockarri M.D. without necrosis Hospitalists or infection, unsp K86.1 Other chronic pancreatitis E78.1 Pure hyperglyceridemia E11.9 Type 2 diabetes mellitus without complications Office Visit 12/24/2017 [facility] [place] K85.90 Acute pancreatitis 11:10a Assoc,karri Maguire DO without necrosis Hospitalists or infection, unsp K86.1 Other chronic pancreatitis E78.1 Pure hyperglyceridemia E11.9 Type 2 diabetes mellitus without complications [facility] K[facility]92 Acute pancreatitis 1:47p Assockarri M.D. with infected Hospitalists necrosis, unspecified R10.9 Unspecified abdominal pain E78.1 Pure hyperglyceridemia G89.29 Other chronic pain Office Visit 06/21[facility]2016 [facility] K85.92 Acute pancreatitis 1:47p Assockarri M.D. with infected Hospitalists necrosis, unspecified R10.9 Unspecified abdominal pain E78.5 Hyperlipidemia, unspecified G89.29 Other chronic pain Office Visit 06/20/2016 [facility] Jacquelyn K85.92 Acute pancreatitis 1:46p Assoc,pc Armond, D.O. with infected Hospitalists necrosis, unspecified R10.9 Unspecified abdominal pain E78.1 Pure hyperglyceridemia [facility] pancreatitis 10:09a karri Koch MD without necrosis Hospitalists or infection, unsp E11.01 Type 2 diabetes mellitus with hyperosmolarity with coma E78.1 Pure hyperglyceridemia [facility] K[facility].90 Acute pancreatitis 10:08a karri Koch MD without necrosis Hospitalists or infection, unsp E11.01 Type 2 diabetes mellitus with hyperosmolarity with coma E78.1 Pure hyperglyceridemia Office Visit 05/28/2016 [facility] K85.90 Acute 10:08a karri Koch M.D. pancreatitis Hospitalists without necrosis or infection, unsp E11.01 Type 2 diabetes mellitus with hyperosmolarity with coma E78.1 Pure hyperglyceridemia Office Visit 05/27/2016 [facility] E11.01 Type 2 diabetes 10:07a karri Koch M.D. mellitus with Hospitalists hyperosmolarity with coma E78.1 Pure hyperglyceridemia K85.90 Acute pancreatitis without necrosis or infection, unsp Office Visit 05/26/2016 [facility] Michael Foreman, K85.90 Acute pancreatitis 10:07a karri Koch M.D. without necrosis Hospitalists or infection, unsp E11.01 Type 2 diabetes mellitus with hyperosmolarity with coma E78.1 Pure hyperglyceridemia Office Visit 03/21/2016 [facility] Klever K85.9 Acute pancreatitis, 12:38p karri Koch M.D. unspecified Hospitalists E11.9 Type 2 diabetes mellitus without complications K86.1 Other chronic pancreatitis Office Visit 03/20/2016 [facility] Klever K85.9 Acute pancreatitis, 12:38p karri Koch M.D. unspecified Hospitalists E11.9 Type 2 diabetes mellitus without complications K86.1 Other chronic pancreatitis Z79.4 acidizer (current) use of insulin Office Visit 03/19/2016 [facility] Klever K85.9 Acute pancreatitis, 12:37p karri Koch M.D. unspecified Hospitalists E11.9 Type 2 diabetes mellitus without complications K86.1 Other chronic pancreatitis Z79.4 [facility] (current) use of insulin Office Visit 03/18/2016 [facility] Klever K85.9 Acute pancreatitis, 12:37p karri Koch M.D. unspecified Hospitalists E11.9 Type 2 diabetes mellitus without complications K86.1 Other chronic pancreatitis Z79.4 acidizer (current) use of insulin Office Visit 03/17/2016 [facility] Karson Gibson K85.9 Acute 12:36p karri Koch II, M.D. pancreatitis, Hospitalists unspecified E11.9 Type 2 diabetes mellitus without complications K86.1 Other chronic pancreatitis Z79.4 acidizer (current) use of insulin [facility] K[facility]9 Acute pancreatitis, 9:32a karri Koch M.D. unspecified Hospitalists E87.1 Hypo-osmolality and hyponatremia E11.9 Type 2 diabetes mellitus without complications E78.1 Pure hyperglyceridemia Office Visit 07[facility]13[facility] K85.9 Acute pancreatitis, 9:32a karri Koch M.D. unspecified Hospitalists E87.1 Hypo-osmolality and hyponatremia E11.9 Type 2 diabetes mellitus without complications Office Visit 11/10/2014 8:41a [facility] [place] 577.0 Pancreatitis Acute Asskarri marte DO Hospitalists 789.00 Pain Abdominal Unspec Site 272.1 Hypertriglyceridemia Pure 250.00 Diabetes Mellitus W/O Compl Type II Or Unspec Controlled Office Visit 11/09/2014 8:41a [facility] [place] 577.0 Pancreatitis Acute Asskarri marte DO Hospitalists 789.00 Pain Abdominal Unspec Site 272.1 Hypertriglyceridemia Pure 250.00 Diabetes Mellitus W/O Compl Type II Or Unspec Controlled Office Visit 11/08/2014 [facility] Sugar Giron, 577.0 Pancreatitis Acute 8:41a karri Koch M.D. Hospitalists 789.00 Pain Abdominal Unspec Site 250.00 Diabetes Mellitus W/O Compl Type II Or Unspec Controlled 272.1 Hypertriglyceridemia Pure Office Visit 11/07/2014 8:40a [facility] [place] 577.0 Pancreatitis Acute Assockarri M.D. Hospitalists 789.00 Pain Abdominal Unspec Site 272.1 Hypertriglyceridemia Pure 250.00 Diabetes Mellitus W/O Compl Type II Or Unspec Controlled Office Visit 07/15/2014 3:01p [facility] Klever 577.0 Pancreatitis Acute Assoc,karri Palomo M.D. 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 Sugar Whitehn, 577.0 Pancreatitis Acute 3:01p karri Koch M.D. 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 Sugar Whitehn, 577.0 Pancreatitis Acute 3:01p karri Koch M.D. 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 Sugar Mack, 577.2 Cyst & Asskarri marte M.D. Pseudocyst Hospitalists Pancreas 577.1 Pancreatitis Chronic 577.0 Pancreatitis Acute 272.1 Hypertriglyceridemia Pure Office Visit 07/11/2014 3:00p [facility] Michael Foreman, 577.0 Pancreatitis Acute Asskarri marte M.D. 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 Don Tapia 577.0 Pancreatitis Acute Assoc,Cornelio Boyer M.D. 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 Karson Gibson 789.00 Pain Abdominal 5:32p Assoc,karri BALLESTEROS M.D. 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 [place] 577.0 Pancreatitis Acute Assoc,karri Maguire DO Hospitalists 787.01 Nausea W/ Vomiting 272.1 Hypertriglyceridemia Pure 250.00 Diabetes Mellitus W/O Compl Type II Or Unspec Controlled Office Visit 05/31/2014 11:03a [facility] [place] 577.0 Pancreatitis Acute Assoc,pc DO Ting Hospitalists 272.1 Hypertriglyceridemia Pure 787.01 Nausea W/ Vomiting 250.00 Diabetes Mellitus W/O Compl Type II Or Unspec Controlled Office Visit 05/18/2014 8:04p [facility] Michael Foreman, 577.0 Pancreatitis Acute Assoc,karri Dsouza Hospitalists 250.00 Diabetes Mellitus W/O Compl Type II Or Unspec Controlled 272.1 Hypertriglyceridemia Pure Plan of Treatment Future Appointment(s):07/22/2018 2:00 pm - Azael Olvera MD at [facility]06/20/2018 - Azael Olvera MDE11.65 Type 2 diabetes mellitus with hyperglycemiaComments:Change Lantus from 50U twice a day to 70U once a day. 20U humalin three times a day. Please stop by Dr Jade office on the way out. Please record your blood sugar fasting upon waking, before each meal and before bedtime. Record in a log book and bring to your appointments.Follow up:4 weeks.F63.81 Intermittent explosive disorderComments:Please start the prozac if you have not already done so.F33.9 Major depressive disorder, recurrent, unspecifiedComments:Please start the prozac if you have not already done so.
[2018-07-14] MEDS ORDERED: Ondansetron INJ* 2 MG/ML VIAL IV ONE (12:08)
[2018-07-14] MEDS ORDERED: NS 0.9% 1000 ML* 1,000 ML IV ONE ×3 (12:08→13:45)
[2018-07-14] MEDS ORDERED: HYDROmorphone INJ1* 1 MG/ML SYRINGE IV SLOW PU ONE ×2 (12:09→13:13)
[2018-07-14 12:18] LABS: ABS Basophils 0.1 10^3/ul (0-0.2); ABS Eosinophils 0 10^3/ul (0-0.6); ABS Lymphocytes 1.1 10^3/ul (1.0-4.8); ABS Monocytes 0.6 10^3/ul (0-0.8); ABS Neutrophils 6.3 10^3/ul (1.5-7.7); ABS Nucleated RBC 0 10^3/ul; Eosinophil % 0.4 %; Hematocrit 53 % (42-52); Hemoglobin 17.6 g/dl (14.0-18.0); Lymphocyte % 13.4 %; Mean Corpuscular HGB Conc 33 g/dl (31-36); Mean Corpuscular Hemoglobin 32 pg (27-31); Mean Corpuscular Volume 96 fL (80-94); Nucleated Red Blood Cells % 0; Platelet Count 300 10^3/ul (150-450); Red Blood Count 5.56 10^6/ul (4.00-5.40); Red Cell Distribution Width 14 % (10.5-15)
[2018-07-14 12:22] LABS: Urine Appearance Clear; Urine Blood Negative (Negative); Urine Color Colorless; Urine Ketones 1+ (Negative); Urine Protein Negative (Negative); Urine Specific Gravity 1.025 (1.010-1.030); Urine Urobilinogen Negative (Negative)
--- NOTE | 2018-07-14 12:24 | ED ---
HPI Diabetic - HPI Summary HPI Summary: Pt is 43 y/o M brought in by ambulance to [facility] due to high blood sugar and altered mental status. EMT reports that blood sugar level on ambulance was past 440, which is as high as their device reads. Pt reports symptoms of lethargy, vomiting, abdominal pain, and arm and leg cramps since yesterday. He has been able to keep liquids down, but not food. Rates his pain 8/10 in severity at triage. PMHx of diabetes. - History Of Current Complaint Chief Complaint: EDDiabeticProb Hx Obtained From: Patient, EMS Hx From Patient Unobtainable Due To: Altered Mental Status Onset/Duration: Lasting Days, Still Present Severity Currently: Severe - 8 Character: Lethargic Aggravating: Nothing Alleviating: Nothing Associated Signs & Symptoms: Abdominal Pain, Vomiting - Allergies/Home Medications Allergies/Adverse Reactions: Allergies Allergy/AdvReac Type Severity Reaction Status Date / Time acetaminophen [From Tylenol] AdvReac Intermediate GI Upset Verified 07/14/18 12: 06 codeine AdvReac Intermediate GI Upset Verified 07/14/18 12:06 ibuprofen AdvReac Intermediate GI Upset Verified 07/14/18 12:06 PMH/Surg Hx/FS Hx/Imm Hx Endocrine/Hematology History: Reports: Hx Diabetes - type 1, 2ndry to pancreatitis; h/o DKA, Other Endocrine/Hematological Disorders - pancreatitis, h /o necrotysing Denies: Hx Thyroid Disease Cardiovascular History: Reports: Hx Hypercholesterolemia Denies: Hx Congestive Heart Failure, Hx Hypertension Respiratory History: Denies: Hx Asthma, Hx Chronic Obstructive Pulmonary Disease (COPD) GI History: Reports: Hx Gastroesophageal Reflux Disease, Other GI Disorders - Pancreatitis - chronic, splenic necrosis Denies: Hx Ulcer History: Denies: Hx Dialysis, Hx Renal Disease Sensory History: Denies: Hx Cataracts, Hx Contacts or Glasses, Hx Eye Injury, Hx Eye Prosthesis, Hx Glaucoma, Hx Legally Blind, Hx Macular Degeneration, Hx Vision Problem, Hx Deafness, Hx Hearing Aid, Hx Hearing Problem, Other Sensory Impairments Opthamlomology History: Denies: Hx Cataracts, Hx Contacts or Glasses, Hx Eye Injury, Hx Eye Prosthesis, Hx Glaucoma, Hx Legally Blind, Hx Macular Degeneration, Hx Vision Problem, Other Sensory Impairments Neurological History: Denies: Hx Dementia, Hx Developmental Delay, Hx Headaches, Hx Migraine, Hx Nerve Disease, Hx Seizures, Hx Spinal Cord Injury, Hx Transient Ischemic Attacks (TIA), Other Neuro Impairments/Disorders Psychiatric History: Reports: Hx Depression - Surgical History Surgery Procedure, Year, and Place: skin grafting at 18 months of age on forehead, PIECE OF PANCREAS REMOVED 08/2014 @ [place], [place] Hx Anesthesia Reactions: No - Immunization History Date of Tetanus Vaccine: utd Date of Influenza Vaccine: fall 2016 Infectious Disease History: No Infectious Disease History: Reports: Hx Clostridium Difficile Denies: Hx Hepatitis, Hx Human Immunodeficiency Virus (HIV), Hx of Known/ Suspected MRSA, Hx Shingles, Hx Tuberculosis, Traveled Outside the [place] in Last 30 Days - Family History Known Family History: Positive: Other - brother high triglycerides (>1,000) - Social History Alcohol Use: None Hx Substance Use: Yes Substance Use Type: Reports: Marijuana Substance Use Comment - Amount & Last Used: Marijuana used occasionally to increase appetite and treat pain Hx Tobacco Use: Yes - trying to cut down/quit - 3 a day as of late Smoking Status (MU): Light Every Day Tobacco Smoker Type: Cigarettes Amount Used/How Often: 1/2 ppd Have You Smoked in the Last Year: Yes Review of Systems Positive: Other - Lethargy Positive: Abdominal Pain, Vomiting Positive: Other - arm and leg cramps All Other Systems Reviewed And Are Negative: Yes Physical Exam - Summary Physical Exam Summary: Appearance: The patient is well-nourished in no moderate distress. Skin: Diaphoretic. The skin is warm and dry and skin color reflects adequate perfusion. HEENT: The head is normocephalic and atraumatic. The pupils are equal and reactive. The conjunctivae are clear and without drainage. Nares are patent and without drainage. Mouth reveals dry mucous membranes and the throat is without erythema and exudate. The external ears are intact. The ear canals are patent and without drainage. The tympanic membranes are intact. Neck: The neck is supple with full range of motion and non-tender. There are no carotid bruits. There is no neck vein distension. Respiratory: Chest is non-tender. Lungs are clear to auscultation and breath sounds are symmetrical and equal. Cardiovascular: Heart is regular rate and rhythm. There is no murmur or rub auscultated. There is no peripheral edema and pulses are symmetrical and equal. Abdomen: Abdomen is diffusely tender. There are normal bowel sounds heard in all four quadrants and there is no organomegaly palpated. Musculoskeletal: There is no back tenderness noted. Extremities are non-tender with full range of motion. There is good capillary refill. There is no peripheral edema or calf tenderness elicited. Neurological: Patient is alert and oriented to person, place and time. The patient has symmetrical motor strength in all four extremities. Cranial nerves are grossly intact. Deep tendon reflexes are symmetrical and equal in all four extremities. Psychiatric: The patient has an appropriate affect and does not exhibit any anxiety or depression. Triage Information Reviewed: Yes Vital Signs On Initial Exam: Initial Vitals Temp Pulse Resp BP Pulse Ox 98.4 F 85 20 131/82 97 07/14/18 11:53 07/14/18 11:53 07/14/18 11:53 07/14/18 11:53 07/14/18 11:53 Vital Signs Reviewed: Yes Diagnostics - Vital Signs Vital Signs Temp Pulse Resp BP Pulse Ox 07/14/18 12:15 18 07/14/18 11:53 98.4 F 85 20 131/82 97 - Laboratory Lab Results: Lab Results 07/14/18 07/14/18 07/14/18 Range/Units 11:51 12:08 12:08 WBC 8.0 (3.5-10.8) 10^3/ul RBC 5.56 H (4.00-5.40) 10^6/ul Hgb 17.6 (14.0-18.0) g/dl Hct 53 H (42-52) % MCV 96 H (80-94) fL MCH 32 H (27-31) pg MCHC 33 (31-36) g/dl RDW 14 (10.5-15) % Plt Count 300 (150-450) 10^3/ul MPV 10.0 (7.4-10.4) fL Neut % (Auto) 78.3 % Lymph % (Auto) 13.4 % [place] % (Auto) 6.9 % Eos % (Auto) 0.4 % Baso % (Auto) 1.0 % Absolute Neuts (auto) 6.3 (1.5-7.7) 10^3/ul Absolute Lymphs (auto) 1.1 (1.0-4.8) 10^3/ul Absolute Monos (auto) 0.6 (0-0.8) 10^3/ul Absolute Eos (auto) 0 (0-0.6) 10^3/ul Absolute Basos (auto) 0.1 (0-0.2) 10^3/ul Absolute Nucleated RBC 0 10^3/ul Nucleated RBC % 0 POC Glucose (mg/dL) > 444 H* (70-100) mg/dL Urine Color Colorless Urine Appearance Clear Urine pH 8.0 (5-9) Ur Specific [place] 1.025 (1.010-1.030) Urine Protein Negative (Negative) Urine Ketones 1+ A (Negative) Urine Blood Negative (Negative) Urine Nitrate Negative (Negative) Urine Bilirubin Negative (Negative) Urine Urobilinogen Negative (Negative) Ur Leukocyte Esterase Negative (Negative) Urine Glucose 3+(>=500 mg/dl) A (Negative) Urine Ascorbic Acid * A (Negative) Result Diagrams: 07/14/18 12:08 07/14/18 20:00 Lab Statement: Any lab studies that have been ordered have been reviewed, and results considered in the medical decision making process. Diabetic Course/Dx - Course Course Of Treatment: Mr. Chinchilla presented with abdominal pain and vomiting. In the eminence of his noted that his blood sugar was too high to register. He was diaphoretic and uncomfortable on presentation but his vitals were stable. Labs were obtained and he was given IV fluids. His blood sugar returned about 1000 was not acidotic. I asked the hospitalist to consult on him and in the meantime started a insulin drip. - Diagnoses Provider Diagnoses: Abdominal pain, Hyperglycemia - Critical Care Time Critical Care Time: 30-74 min Discharge - Sign-Out/Discharge Documenting (check all that apply): Patient Departure - Admit - Discharge Plan Condition: Stable Disposition: ADMITTED TO [facility] - Billing Disposition and Condition Condition: STABLE Disposition: Admitted to [facility] - Attestation Statements Document Initiated by Scribe: Yes Documenting Scribe: Rufus Welch Provider For Whom Scribe is Documenting (Include Credential): Dr. Phillip Amos MD Scribe Attestation: Rufus Garcia, scribed for Dr. Phillip Amos MD on 07/14/18 at 2111. Scribe Documentation Reviewed: Yes Provider Attestation: The documentation as recorded by the scribe, Rufus Welch accurately reflects the service I personally performed and the decisions made by me, Dr. Phillip Amos MD Status of Andra Document: Viewed
[2018-07-14 12:35] LABS: EGFR Non-African American 81.9 (>60)
[2018-07-14] MEDS: Insulin IVPB 100 units/100 ml 100 UNITS/100 ML UNIT IVPB ONE ×2 (13:23→21:37)
[2018-07-14] MEDS ORDERED: HYDROmorphone TAB* 4 MG PO PRN (13:49)
[2018-07-14] MEDS ORDERED: Nicotine Inhaler* 10 MG AMP INH PRN (13:49)
[2018-07-14] MEDS ORDERED: Promethazine TAB* 25 MG PO PRN (13:49)
[2018-07-14] MEDS ORDERED: Docusate CAP* 100 MG PO PRN (14:11)
[2018-07-14] MEDS ORDERED: Senna TAB PO PRN (14:11)
[2018-07-14] MEDS ORDERED: Acetaminophen TAB* 325 MG PO PRN (14:11)
[2018-07-14] MEDS ORDERED: Al Hydrox/Mg Hydrox/Simet LIQ* 30 ML UDC PO PRN (14:11)
[2018-07-14 14:29] LABS: Urine Appearance Clear; Urine Blood Negative (Negative); Urine Color Straw; Urine Ketones 1+ (Negative); Urine Protein Negative (Negative); Urine Specific Gravity 1.028 (1.010-1.030); Urine Urobilinogen Negative (Negative)
[2018-07-14 16:34] LABS: EGFR Non-African American 100.2 (>60)
[2018-07-14] MEDS: Sucralfate TAB* 1 GM PO SCH (16:46)
[2018-07-14] MEDS: Gabapentin CAP(*) 300 MG PO SCH ×2 (16:46→21:31)
[2018-07-14] MEDS: NS 0.9% w/ 20 Meq KCL 1000 ML* 1,000 ML IV SCH ×2 (17:47→23:09)
[2018-07-14] MEDS: Ondansetron INJ* 2 MG/ML VIAL IV PRN (18:13)
[2018-07-14] MEDS ORDERED: Dextrose 50% Syringe 50 ML* 25 GM/50 ML SYRINGE IV PUSH PRN ×3 (18:26→19:13)
[2018-07-14] MEDS ORDERED: Insulin GLARGINE(*) 1 UNITS UNIT SUBCUT ONE (18:30)
[2018-07-14] MEDS ORDERED: Insulin IVPB 100 units/100 ml 100 UNITS/100 ML UNIT IVPB SCH (19:00)
[2018-07-14] MEDS: HYDROmorphone INJ1* 1 MG/ML SYRINGE IV SLOW PU PRN ×2 (19:41→23:39)
[2018-07-14 19:47] LABS: EGFR Non-African American 110.8 (>60)
[2018-07-14] MEDS ORDERED: Insulin LISPRO* 1 UNITS UNIT SUBCUT SCH (20:00)
--- NOTE | 2018-07-14 20:22 | HP ---
HISTORY AND PHYSICAL: DATE OF ADMISSION: 07/14/18 TIME OF EVALUATION: 1300. PRIMARY CARE PHYSICIAN: Azael Olvera MD CHIEF COMPLAINT: Nausea, vomiting, and abdominal pain. HISTORY OF PRESENT ILLNESS: This is a 43-year-old male, who is well-known to the hospitalist service for his history of recurrent acute on chronic pancreatitis in the setting of familial hypertriglyceridemia and insulin- dependent diabetes, who presents to the emergency room after having 2 days of low energy, per his , lethargic, and having nausea, vomiting, and waves of abdominal pain, and he states both kidneys are painful. He states he has had intermittent burning when he pees and that it smells bad. He started having nausea, vomiting yesterday. No diarrhea. His belly pain comes in waves. He has chronic abdominal pain. He had a normal bowel movement this morning. No fevers, no cough, no chest pain, no congestion, no shortness of breath. He has 4 kids. They have had several illnesses including a GI and upper respiratory illness. He is scheduled to see Dr. Jade tomorrow for his diabetes. He states he has been taking his insulin accordingly except for today he did not take his Humalog. He did take his Lantus this morning. Otherwise, review of systems is negative. The patient states he denies any changes in his medication since his last admission back in June. In the emergency room, the patient had labs, was found to have elevated an glucose, was given 2 L of fluid, started on insulin drip and referred to the hospitalist service for further evaluation. He was also given 2 mg of Dilaudid. PAST MEDICAL HISTORY: 1. Insulin-dependent diabetes, poorly controlled secondary to his pancreatitis. 2. 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 Moran of [facility]. 3. Familial hypertriglyceridemia. 4. History of functional asplenia. 5. History of chronic abdominal pain and of note, radiology director will only cover 7 days of p.o. narcotic for the time. 6. History of large pancreatic pseudocyst that was drained in December 2017 after the patient was transferred to [facility]. 7. 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 8. Frequent admissions for abdominal pain, pancreatitis, poorly controlled diabetes. MEDICATIONS: 1. Cholecalciferol 400 mg p.o. daily. 2. Prozac 20 mg p.o. daily. 3. Gabapentin 300 mg p.o. t.i.d. 4. Gemfibrozil 600 mg p.o. b.i.d. 5. Dilaudid 4 mg every 4 hours as needed. 6. Lantus 70 units daily in the morning. 7. Humalog 20 to 25 units t.i.d. with meals. 8. Nicotine inhaler as needed. 9. Phenergan 25 mg every 6 hours as needed. 10. Carafate 1 g p.o. t.i.d. with meals. 11. Ursodiol 300 mg p.o. b.i.d. ALLERGIES: The patient is allergic to TYLENOL, CODEINE, and IBUPROFEN. FAMILY HISTORY: Father with diabetes. Mother from an MD, age 54. Brother with hypertriglyceridemia. SOCIAL HISTORY: The patient lives at home with his and 3 kids. He smokes about a half a pack per day for the past 30 years. No alcohol use. No illicit drug use. His is the healthcare proxy. CODE STATUS: Full code. REVIEW OF SYSTEMS: A 14-point review of systems as mentioned in the HPI, otherwise negative. PHYSICAL EXAMINATION GENERAL: No acute distress. The patient is falling asleep during my encounter. His is at the bedside providing most of the history. VITAL SIGNS: Temp 98.4, pulse rate 85, respiratory rate 20, oxygen saturation 97 % on room air, blood pressure 131/92. HEENT: Head normocephalic. Pupils are equal and reactive. Conjunctivae injected. Oropharynx: Mucous membranes dry. No erythema, exudate, or white patches. NECK: Supple. No lymphadenopathy. RESPIRATORY: Clear to auscultation. No wheezes, rhonchi, or rales. Diminished breath sounds. CARDIAC: Regular rate and rhythm. Soft systolic murmur heard throughout. ABDOMEN: Positive bowel sounds, soft, nondistended, diffusely tender. No rebound or guarding. EXTREMITIES: No clubbing, cyanosis, or edema. NEUROLOGIC: As mentioned, the patient falling asleep during my encounter. No gross focal neurologic deficits. LABORATORY DATA: White count 8, hemoglobin 17.6, hematocrit 53, platelets 300. Blood gas: pH of 7.4. Sodium 117, potassium 4.7, chloride 78, bicarb 25, anion gap of 14, BUN of 13, creatinine of 1, glucose 932. ALT 86, alk phos 387 , lipase of 56. Urinalysis was unremarkable, +1 ketones, +3 glucose. ASSESSMENT AND PLAN: This is a 43-year-old male with a past medical history of poorly controlled diabetes secondary to chronic pancreatitis with familial hypertriglyceridemia, who presents to the emergency room with 2 days of nausea, vomiting, abdominal pain, found to be hypoglycemic. Nausea, vomiting, abdominal pain. Assessment: The etiology behind his onset of illness could be a viral illness secondary to gastroenteritis. His kids are sick. He has no fever. He has no white count. His abdominal discomfort could be secondary to his chronic pancreatitis. He is not acidotic based on his labs. He has a slight anion gap. His sodium is 117, corrected for his hypertriglyceridemia is 133. His abdominal exam has diffuse tenderness, which I suspect is his baseline, with no rebound or guarding. He does have chronic abdominal pain and his urine is unremarkable. Plan: We will admit him to the ICU for insulin drip and aggressive IV fluid resuscitation and monitor his blood glucose closely to close his small gap and to replete his electrolytes. He is scheduled to have an appointment with Dr. Jade tomorrow. Consider contacting Dr. Jade in the morning for an evaluation while he is an inpatient. CHRONIC MEDICAL PROBLEMS: We will resume his home medications as prescribed. We will try to avoid IV narcotics as the patient is very sedated at this time. FEN: Keep him on n.p.o. for now until his gap is closed. DVT prophylaxis: The patient scores moderate risk. We will place him on heparin subcu t.i.d. Code status: Full code. PATIENT TIME: Greater than 50 minutes was spent doing the history and physical , more than half the time spent in direct patient contact and critical care time. [id number]/[facility] #: [id number] JARAD
[2018-07-14 20:29] LABS: EGFR Non-African American 112.5 (>60)
[2018-07-14] MEDS: Gemfibrozil TAB* 600 MG PO SCH (21:31)
[2018-07-14] MEDS: Ursodiol CAP* 300 MG PO SCH (21:31)
[2018-07-14] MEDS: Heparin VIAL(*) 5000 UNITS/ML VIAL (FIVE THOUSAND) SUBCUT SCH (21:40)
[2018-07-15] MEDS: Ondansetron INJ* 2 MG/ML VIAL IV PRN (00:40)
[2018-07-15] MEDS: Insulin LISPRO* 1 UNITS UNIT SUBCUT SCH ×15 (01:47→22:16)
[2018-07-15] MEDS: NS 0.9% w/ 20 Meq KCL 1000 ML* 1,000 ML IV SCH ×3 (04:07→13:25)
[2018-07-15] MEDS ORDERED: HYDROmorphone INJ* 0.5 MG/0.5 ML SYRINGE ONE ×2 (04:10→08:10)
[2018-07-15 05:38] LABS: EGFR Non-African American 153.6 (>60)
[2018-07-15] MEDS: Heparin VIAL(*) 5000 UNITS/ML VIAL (FIVE THOUSAND) SUBCUT SCH ×3 (06:15→20:48)
[2018-07-15] MEDS ORDERED: Insulin LISPRO* 1 UNITS UNIT SUBCUT SCH ×5 (07:30)
[2018-07-15] MEDS: Insulin GLARGINE(*) 1 UNITS UNIT SUBCUT SCH (08:12)
[2018-07-15] MEDS: Gabapentin CAP(*) 300 MG PO SCH ×3 (08:12→20:45)
[2018-07-15] MEDS: Gemfibrozil TAB* 600 MG PO SCH ×2 (08:13→20:45)
[2018-07-15] MEDS: FLUoxetine CAP* 20 MG PO SCH (08:13)
[2018-07-15] MEDS: Ursodiol CAP* 300 MG PO SCH ×2 (08:13→20:45)
[2018-07-15] MEDS: Cholecalciferol TAB* 400 UNIT PO SCH (08:13)
[2018-07-15] MEDS: Sucralfate TAB* 1 GM PO SCH ×3 (08:13→16:44)
--- NOTE | 2018-07-15 08:13 | PN ---
Subjective Date of Service: 07/15/18 Interval History: Pain level 10. He has pain every day at home, generally takes hydroimorphone 4 mg 6 x/day. BM yesterday. Last took Lantus 70 U 07/14 in AM at home. Objective Active Medications: Acetaminophen (Tylenol Tab*) 650 mg PO Q4H PRN PRN Reason: FEVER/PAIN Al Hydrox/Mg Hydrox/Simethicone (Maalox Plus*) 30 ml PO Q6H PRN PRN Reason: INDIGESTION Cholecalciferol (Vitamin D Tab*) 400 unit PO DAILY [facility] Dextrose (D50w Syringe 50 Ml*) 12.5 gm IV PUSH .FOR FS < 60 - SS PRN PRN Reason: FS < 60 Docusate Sodium (Colace Cap*) 100 mg PO BID PRN PRN Reason: CONSTIPATION Fluoxetine HCl (Prozac Cap*) 20 mg PO DAILY [facility] Gabapentin (Neurontin Cap(*)) 300 mg PO TID [facility] Last Admin: 07/14/18 21:31 Dose: 300 mg Gemfibrozil (Lopid Tab*) 600 mg PO BID [facility] Last Admin: 07/14/18 21:31 Dose: 600 mg Heparin Sodium (Porcine) (Heparin Vial(*)) 5,000 units SUBCUT Q8HR [facility] Last Admin: 07/15/18 06:15 Dose: Not Given Hydromorphone HCl (Dilaudid Tab*) 4 mg PO Q4H PRN PRN Reason: PAIN Hydromorphone HCl (Dilaudid Inj1s*) 1 mg IV SLOW PU Q4H PRN PRN Reason: PAIN Last Admin: 07/14/18 23:39 Dose: 1 mg Potassium Chloride/Sodium Chloride (Ns 0.9% W/ 20 Meq Kcl 1000 Ml*) 1,000 mls @ 200 mls/hr IV PER RATE [facility] Last Admin: 07/15/18 04:07 Dose: 200 mls/hr Insulin Glargine (Lantus(*)) 25 units SUBCUT Q24H [facility] Insulin Human Lispro (Humalog*) 0 units SUBCUT AC [facility]; Protocol Last Admin: 07/15/18 07:33 Dose: Not Given Insulin Human Lispro (Humalog*) 0 units SUBCUT Q4HR [facility]; Protocol Nicotine (Nicotine Inhaler*) 10 mg INH Q2H PRN PRN Reason: CRAVING Ondansetron HCl (Zofran Inj*) 4 mg IV Q4H PRN PRN Reason: NAUSEA/VOMITING Last Admin: 07/15/18 00:40 Dose: 4 mg Promethazine HCl (Phenergan Tab*) 25 mg PO Q6H PRN PRN Reason: NAUSEA Senna (Senokot Tab*) 1 tab PO BID PRN PRN Reason: CONSTIPATION Sucralfate (Carafate*) 1 gm PO AC [facility] Last Admin: 07/14/18 16:46 Dose: 1 gm Ursodiol (Actigall Cap*) 300 mg PO BID [facility] Last Admin: 07/14/18 21:31 Dose: 300 mg Vital Signs - 8 hr 07/15/18 07/15/18 07/15/18 00:30 01:00 01:01 Temperature Pulse Rate 64 65 66 Respiratory 14 Rate Blood Pressure 99/67 88/64 (mmHg) O2 Sat by Pulse 94 97 97 Oximetry 07/15/18 07/15/18 07/15/18 01:19 01:30 01:38 Temperature Pulse Rate 62 61 61 Respiratory 15 11 15 Rate Blood Pressure 90/66 88/63 95/64 (mmHg) O2 Sat by Pulse 96 95 95 Oximetry 07/15/18 07/15/18 07/15/18 02:00 02:01 02:30 Temperature Pulse Rate 63 61 62 Respiratory 14 14 14 Rate Blood Pressure 98/70 94/70 (mmHg) O2 Sat by Pulse 95 96 95 Oximetry 07/15/18 07/15/18 07/15/18 03:00 03:01 03:30 Temperature 96.1 F Pulse Rate 61 60 62 Respiratory 12 13 12 Rate Blood Pressure 100/78 98/71 (mmHg) O2 Sat by Pulse 96 96 96 Oximetry 07/15/18 07/15/18 07/15/18 04:00 04:01 04:12 Temperature Pulse Rate 66 67 Respiratory 12 13 12 Rate Blood Pressure 92/67 (mmHg) O2 Sat by Pulse 99 99 Oximetry 07/15/18 07/15/18 07/15/18 04:30 05:00 05:01 Temperature Pulse Rate 63 62 62 Respiratory 6 15 12 Rate Blood Pressure 104/77 101/70 (mmHg) O2 Sat by Pulse 94 94 95 Oximetry 07/15/18 07/15/18 07/15/18 05:30 06:00 06:01 Temperature 97.8 F Pulse Rate 60 57 71 Respiratory 14 14 23 Rate Blood Pressure 94/70 87/65 (mmHg) O2 Sat by Pulse 98 98 97 Oximetry 07/15/18 07/15/18 07/15/18 06:20 06:30 07:00 Temperature Pulse Rate 64 77 67 Respiratory 13 24 14 Rate Blood Pressure 97/80 99/74 94/68 (mmHg) O2 Sat by Pulse 97 94 98 Oximetry 07/15/18 07/15/18 07/15/18 07:01 07:30 07:32 Temperature Pulse Rate 65 65 Respiratory 12 18 14 Rate Blood Pressure 103/73 (mmHg) O2 Sat by Pulse 98 98 Oximetry 07/15/18 08:00 Temperature 97.5 F Pulse Rate Respiratory Rate Blood Pressure (mmHg) O2 Sat by Pulse Oximetry Oxygen Devices in Use Now: None Appearance: Lying on R side, looks uncomfortable. Eyes: No Scleral Icterus Abdominal: - - Some guarding. Abd scaphoid, somewhat tender. Rare BS. Extremities: No Edema, No Clubbing, Cyanosis, - Skin: No Rash or Ulcers, No Nodules or Sclerosis, - Neurological: Alert and Oriented x 3 Result Diagrams: 07/14/18 12:08 07/15/18 05:10 Additional Lab and Data: Lab Results 07/14/18 07/14/18 07/14/18 Range/Units 11:51 12:08 12:08 WBC 8.0 (3.5-10.8) 10^3/ul RBC 5.56 H (4.00-5.40) 10^6/ul Hgb 17.6 (14.0-18.0) g/dl Hct 53 H (42-52) % MCV 96 H (80-94) fL MCH 32 H (27-31) pg MCHC 33 (31-36) g/dl RDW 14 (10.5-15) % Plt Count 300 (150-450) 10^3/ul MPV 10.0 (7.4-10.4) fL Neut % (Auto) 78.3 % Lymph % (Auto) 13.4 % [place] % (Auto) 6.9 % Eos % (Auto) 0.4 % Baso % (Auto) 1.0 % Absolute Neuts (auto) 6.3 (1.5-7.7) 10^3/ul Absolute Lymphs (auto) 1.1 (1.0-4.8) 10^3/ul Absolute Monos (auto) 0.6 (0-0.8) 10^3/ul Absolute Eos (auto) 0 (0-0.6) 10^3/ul Absolute Basos (auto) 0.1 (0-0.2) 10^3/ul Absolute Nucleated RBC 0 10^3/ul Nucleated RBC % 0 POC Glucose (mg/dL) > 444 H* (70-100) mg/dL Urine Color Colorless Urine Appearance Clear Urine pH 8.0 (5-9) Ur Specific [place] 1.025 (1.010-1.030) Urine Protein Negative (Negative) Urine Ketones 1+ A (Negative) Urine Blood Negative (Negative) Urine Nitrate Negative (Negative) Urine Bilirubin Negative (Negative) Urine Urobilinogen Negative (Negative) Ur Leukocyte Esterase Negative (Negative) Urine Glucose 3+(>=500 mg/dl) A (Negative) Urine Ascorbic Acid * A (Negative) Microbiology and Other Data: Microbiology 07/14/18 15:50 Nasal Screen MRSA (PCR) - Final Nasal Mrsa Not Detected Assess/Plan/Problems-Billing Assessment: - Patient Problems (1) Chronic pancreatitis Current Visit: No Status: Acute Code(s): K86.1 - OTHER CHRONIC PANCREATITIS SNOMED Code(s): 013432673 Comment: Advance to clear liquid diet. Continue IV hydromorphone, IV NSS. Labs 07/16. (2) Dyslipidemia Current Visit: No Status: Acute Priority: High Code(s): E78.5 - HYPERLIPIDEMIA, UNSPECIFIED SNOMED Code(s): 716560340 Comment: Lipid profile 07/16. (3) Diabetes mellitus Current Visit: No Status: Acute Priority: High Code(s): E11.9 - TYPE 2 DIABETES MELLITUS WITHOUT COMPLICATIONS SNOMED Code(s): 79792789 Comment: S/P partial pancreatectomy 08/2014 at [facility] [place]. cont Lantus at reduced dose, cont ISS (4) Tobacco abuse Current Visit: Yes Status: Acute Code(s): Z72.0 - TOBACCO USE SNOMED Code( s): 820829085 Comment: Pt advised to quit smoking and avoid second hand smoke. Pt refused nicotine patch. Continue PRN nicotine inhaler.
[2018-07-15] MEDS ORDERED: Insulin GLARGINE(*) 1 UNITS UNIT SUBCUT SCH (09:00)
[2018-07-15 09:09] LABS: ABS Basophils 0 10^3/ul (0-0.2); ABS Eosinophils 0.2 10^3/ul (0-0.6); ABS Lymphocytes 1.8 10^3/ul (1.0-4.8); ABS Monocytes 0.6 10^3/ul (0-0.8); ABS Neutrophils 5.1 10^3/ul (1.5-7.7); ABS Nucleated RBC 0 10^3/ul; Eosinophil % 2.2 %; Hematocrit 43 % (42-52); Hemoglobin 14.4 g/dl (14.0-18.0); Lymphocyte % 23.8 %; Mean Corpuscular HGB Conc 34 g/dl (31-36); Mean Corpuscular Hemoglobin 31 pg (27-31); Mean Corpuscular Volume 93 fL (80-94); Mean Platelet Volume 9.1 fL (7.4-10.4); Nucleated Red Blood Cells % 0.1; Platelet Count 247 10^3/ul (150-450); Red Blood Count 4.63 10^6/ul (4.00-5.40); Red Cell Distribution Width 14 % (10.5-15); White Blood Count 7.8 10^3/ul (3.5-10.8)
[2018-07-15] MEDS: HYDROmorphone INJ1* 1 MG/ML SYRINGE IV SLOW PU PRN ×4 (12:13→21:03)
[2018-07-15] MEDS ORDERED: NS 0.9% w/ 20 Meq KCL 1000 ML* 1,000 ML IV SCH (20:42)
[2018-07-16] MEDS: HYDROmorphone INJ1* 1 MG/ML SYRINGE IV SLOW PU PRN ×10 (00:10→23:17)
[2018-07-16] MEDS: Insulin LISPRO* 1 UNITS UNIT SUBCUT SCH ×8 (02:04→23:30)
[2018-07-16] MEDS: Heparin VIAL(*) 5000 UNITS/ML VIAL (FIVE THOUSAND) SUBCUT SCH ×3 (06:00→20:14)
[2018-07-16 07:49] LABS: EGFR Non-African American 153.6 (>60)
[2018-07-16] MEDS: Insulin GLARGINE(*) 1 UNITS UNIT SUBCUT SCH (08:35)
[2018-07-16] MEDS: Sucralfate TAB* 1 GM PO SCH ×3 (08:35→14:29)
[2018-07-16] MEDS: FLUoxetine CAP* 20 MG PO SCH (08:35)
[2018-07-16] MEDS: Gabapentin CAP(*) 300 MG PO SCH ×3 (08:36→20:13)
[2018-07-16] MEDS: Ursodiol CAP* 300 MG PO SCH ×2 (08:37→20:14)
[2018-07-16] MEDS: Cholecalciferol TAB* 400 UNIT PO SCH (08:38)
[2018-07-16] MEDS: Gemfibrozil TAB* 600 MG PO SCH ×2 (08:38→20:13)
--- NOTE | 2018-07-16 09:33 | PN ---
"Progress Note - Progress Note Date of Service: 07/16/18 Note: This report was requested by: Preston Ernandez | Reference #: [id number] Others' Prescriptions Patient Name: Ryder Chinchilla Date: 1975 Address: [address] [place] [id number] Sex: Male Rx Written Rx Dispensed Drug Quantity Days Supply Prescriber Name 05/23/2018 05/23/2018 hydromorphone 4 mg tablet 84 14 Emily Browning Patient Name: Ryder Chinchilla Date: 1975 Address: [place] [address] Sex: Male Rx Written Rx Dispensed Drug Quantity Days Supply Prescriber Name 03/02/2018 03/09/2018 hydromorphone 4 mg tablet 24 3 Sundar Ortega 02/18/2018 03/02/2018 hydromorphone 4 mg tablet 56 7 Don Heller MD 01/22/2018 01/25/2018 hydromorphone 4 mg tablet 120 15 Don Heller MD"
--- NOTE | 2018-07-16 12:10 | PN ---
Subjective Date of Service: 07/16/18 Interval History: Patient c/o IV hydromorphone does not last long. Objective Active Medications: Acetaminophen (Tylenol Tab*) 650 mg PO Q4H PRN PRN Reason: FEVER/PAIN Al Hydrox/Mg Hydrox/Simethicone (Maalox Plus*) 30 ml PO Q6H PRN PRN Reason: INDIGESTION Cholecalciferol (Vitamin D Tab*) 400 unit PO DAILY REPLACED BY [facility] Last Admin: 07/16/18 08:38 Dose: 400 unit Dextrose (D50w Syringe 50 Ml*) 12.5 gm IV PUSH .FOR FS < 60 - SS PRN PRN Reason: FS < 60 Docusate Sodium (Colace Cap*) 100 mg PO BID PRN PRN Reason: CONSTIPATION Last Admin: 07/16/18 08:42 Dose: 100 mg Fluoxetine HCl (Prozac Cap*) 20 mg PO DAILY REPLACED BY [facility] Last Admin: 07/16/18 08:35 Dose: 20 mg Gabapentin (Neurontin Cap(*)) 300 mg PO TID REPLACED BY [facility] Last Admin: 07/16/18 08:36 Dose: 300 mg Gemfibrozil (Lopid Tab*) 600 mg PO BID REPLACED BY [facility] Last Admin: 07/16/18 08:38 Dose: 600 mg Heparin Sodium (Porcine) (Heparin Vial(*)) 5,000 units SUBCUT Q8HR REPLACED BY [facility] Last Admin: 07/16/18 06:00 Dose: Not Given Hydromorphone HCl (Dilaudid Inj1s*) 1 mg IV SLOW PU Q2H PRN PRN Reason: PAIN Last Admin: 07/16/18 10:29 Dose: 1 mg Potassium Chloride/Sodium Chloride (Ns 0.9% W/ 20 Meq Kcl 1000 Ml*) 1,000 mls @ 100 mls/hr IV PER RATE REPLACED BY [facility] Last Admin: 07/16/18 04:05 Dose: 100 mls/hr Insulin Glargine (Lantus(*)) 25 units SUBCUT Q24H REPLACED BY [facility] Last Admin: 07/16/18 08:35 Dose: 25 units Insulin Human Lispro (Humalog*) 0 units SUBCUT Q4HR REPLACED BY [facility]; Protocol Last Admin: 07/16/18 08:45 Dose: 1 unit Nicotine (Nicotine Inhaler*) 10 mg INH Q2H PRN PRN Reason: CRAVING Ondansetron HCl (Zofran Inj*) 4 mg IV Q4H PRN PRN Reason: NAUSEA/VOMITING Last Admin: 07/15/18 00:40 Dose: 4 mg Promethazine HCl (Phenergan Tab*) 25 mg PO Q6H PRN PRN Reason: NAUSEA Last Admin: 07/16/18 08:42 Dose: 25 mg Senna (Senokot Tab*) 1 tab PO BID PRN PRN Reason: CONSTIPATION Sucralfate (Carafate*) 1 gm PO AC JENNIFER Last Admin: 07/16/18 10:25 Dose: 1 gm Ursodiol (Actigall Cap*) 300 mg PO BID JENN[facility]ER Last Admin: 07/16/18 08:37 Dose: 300 mg Vital Signs - 8 hr 07/16/18 07/16/18 07/16/18 04:30 06:10 07:34 Temperature Pulse Rate Respiratory 20 18 18 Rate Blood Pressure (mmHg) O2 Sat by Pulse Oximetry 07/16/18 07/16/18 07/16/18 07:47 07:49 08:32 Temperature 98.0 F Pulse Rate 66 Respiratory 16 18 18 Rate Blood Pressure 109/75 (mmHg) O2 Sat by Pulse 99 Oximetry 07/16/18 07/16/18 07/16/18 08:36 09:30 10:29 Temperature Pulse Rate Respiratory 18 18 18 Rate Blood Pressure (mmHg) O2 Sat by Pulse Oximetry Oxygen Devices in Use Now: None Appearance: Alert, sitting up in bed. In fair spirits. Looks comfortable. Eyes: No Scleral Icterus Abdominal: NL Sounds; No Tenderness; No Distention, No Hepatosplenomegaly, - Extremities: No Edema, No Clubbing, Cyanosis, - Skin: No Rash or Ulcers, No Nodules or Sclerosis, - Neurological: Alert and Oriented x 3, NL Sensation Result Diagrams: 07/15/18 09:00 07/16/18 10:17 Additional Lab and Data: Lab Results 07/14/18 07/14/18 07/14/18 Range/Units 11:51 12:08 12:08 WBC 8.0 (3.5-10.8) 10^3/ul RBC 5.56 H (4.00-5.40) 10^6/ul Hgb 17.6 (14.0-18.0) g/dl Hct 53 H (42-52) % MCV 96 H (80-94) fL MCH 32 H (27-31) pg MCHC 33 (31-36) g/dl RDW 14 (10.5-15) % Plt Count 300 (150-450) 10^3/ul MPV 10.0 (7.4-10.4) fL Neut % (Auto) 78.3 % Lymph % (Auto) 13.4 % [place] % (Auto) 6.9 % Eos % (Auto) 0.4 % Baso % (Auto) 1.0 % Absolute Neuts (auto) 6.3 (1.5-7.7) 10^3/ul Absolute Lymphs (auto) 1.1 (1.0-4.8) 10^3/ul Absolute Monos (auto) 0.6 (0-0.8) 10^3/ul Absolute Eos (auto) 0 (0-0.6) 10^3/ul Absolute Basos (auto) 0.1 (0-0.2) 10^3/ul Absolute Nucleated RBC 0 10^3/ul Nucleated RBC % 0 POC Glucose (mg/dL) > 444 H* (70-100) mg/dL Urine Color Colorless Urine Appearance Clear Urine pH 8.0 (5-9) Ur Specific Smoot 1.025 (1.010-1.030) Urine Protein Negative (Negative) Urine Ketones 1+ A (Negative) Urine Blood Negative (Negative) Urine Nitrate Negative (Negative) Urine Bilirubin Negative (Negative) Urine Urobilinogen Negative (Negative) Ur Leukocyte Esterase Negative (Negative) Urine Glucose 3+(>=500 mg/dl) A (Negative) Urine Ascorbic Acid * A (Negative) Microbiology and Other Data: Microbiology 07/14/18 15:50 Nasal Screen MRSA (PCR) - Final Nasal Mrsa Not Detected Assess/Plan/Problems-Billing Assessment: - Patient Problems (1) Chronic pancreatitis Current Visit: No Status: Acute Code(s): K86.1 - OTHER CHRONIC PANCREATITIS SNOMED Code(s): 088192105 Comment: Continue clear liquid diet. I reduced the IV hydromorphone PRN interval a second time on 07/16. Repeat lipase again wnl. Stop IV fluids, monitor I&O's. Dr. Crenshaw to consult for pain control. (2) Dyslipidemia Current Visit: No Status: Acute Priority: High Code(s): E78.5 - HYPERLIPIDEMIA, UNSPECIFIED SNOMED Code(s): 629456688 Comment: Triglycerides 885 on 07/16. (3) Diabetes mellitus Current Visit: No Status: Acute Priority: High Code(s): E11.9 - TYPE 2 DIABETES MELLITUS WITHOUT COMPLICATIONS SNOMED Code(s): 74814034 Comment: S/P partial pancreatectomy 08/2014 at [facility]. Increase Lantus to 35 U start 07/17, cont ISS. (4) Tobacco abuse Current Visit: Yes Status: Acute Code(s): Z72.0 - TOBACCO USE SNOMED Code( s): 087017049 Comment: Pt advised to quit smoking and avoid second hand smoke. Pt refused nicotine patch. Continue PRN nicotine inhaler.
[2018-07-16] MEDS ORDERED: Insulin GLARGINE(*) 1 UNITS UNIT SUBCUT SCH (12:15)
--- NOTE | 2018-07-16 13:33 | CONSULT ---
Consult Consult: INPATIENT PAIN CONSULTATION Ryder Chinchilla is a 43 year old seen by me in the ICU June 06, 2018. He was a heavy drinker when he was in his 20's and developed Pancreatitis as a result. He quit drinking when he was incarcerated in 2002. He had surgery to remove a necrotic part of his pancreas in 2013. He had a second surgery for a splenectomy and removal of more of the pancreas. He is insulin dependent, and has difficulty with high triglycerides. When I saw him in June I suggested a Fentanyl patch for his pain and to cut back on his IV dilaudid. He left AMA shortly after I saw him. I do believe he would do better with a Fentanyl patch due to his multiple abdominal surgeries. PAST MEDICAL HISTORY IDDM, hypertriglyceridemia, chronic pancreatitis, skin graft on forehead, alcohol abuse (claims sobriety since incarceration in 2002) Allergies Allergy/AdvReac Type Severity Reaction Status Date / Time acetaminophen [From Tylenol] AdvReac Intermediate GI Upset Verified 07/14/18 12: 06 codeine AdvReac Intermediate GI Upset Verified 07/14/18 12:06 ibuprofen AdvReac Intermediate GI Upset Verified 07/14/18 12:06 Current Medications Acetaminophen (Tylenol Tab*) 650 mg PO Q4H PRN PRN Reason: FEVER/PAIN Al Hydrox/Mg Hydrox/Simethicone (Maalox Plus*) 30 ml PO Q6H PRN PRN Reason: INDIGESTION Cholecalciferol (Vitamin D Tab*) 400 unit PO DAILY [facility] Last Admin: 07/16/18 08:38 Dose: 400 unit Dextrose (D50w Syringe 50 Ml*) 12.5 gm IV PUSH .FOR FS < 60 - SS PRN PRN Reason: FS < 60 Docusate Sodium (Colace Cap*) 100 mg PO BID PRN PRN Reason: CONSTIPATION Last Admin: 07/16/18 08:42 Dose: 100 mg Fluoxetine HCl (Prozac Cap*) 20 mg PO DAILY [facility] Last Admin: 07/16/18 08:35 Dose: 20 mg Gabapentin (Neurontin Cap(*)) 300 mg PO TID [facility] Last Admin: 07/16/18 12:39 Dose: 300 mg Gemfibrozil (Lopid Tab*) 600 mg PO BID [facility] Last Admin: 07/16/18 08:38 Dose: 600 mg Heparin Sodium (Porcine) (Heparin Vial(*)) 5,000 units SUBCUT Q8HR [facility] Last Admin: 07/16/18 06:00 Dose: Not Given Hydromorphone HCl (Dilaudid Inj1s*) 1 mg IV SLOW PU Q2H PRN PRN Reason: PAIN Last Admin: 07/16/18 12:34 Dose: 1 mg Insulin Glargine (Lantus(*)) 35 units SUBCUT Q24H [facility] Last Admin: 07/16/18 12:24 Dose: Not Given Insulin Human Lispro (Humalog*) 0 units SUBCUT Q4HR [facility]; Protocol Last Admin: 07/16/18 08:45 Dose: 1 unit Nicotine (Nicotine Inhaler*) 10 mg INH Q2H PRN PRN Reason: CRAVING Ondansetron HCl (Zofran Inj*) 4 mg IV Q4H PRN PRN Reason: NAUSEA/VOMITING Last Admin: 07/15/18 00:40 Dose: 4 mg Promethazine HCl (Phenergan Tab*) 25 mg PO Q6H PRN PRN Reason: NAUSEA Last Admin: 07/16/18 08:42 Dose: 25 mg Senna (Senokot Tab*) 1 tab PO BID PRN PRN Reason: CONSTIPATION Sucralfate (Carafate*) 1 gm PO AC [facility] Last Admin: 07/16/18 10:25 Dose: 1 gm Ursodiol (Actigall Cap*) 300 mg PO BID [facility] Last Admin: 07/16/18 08:37 Dose: 300 mg SOCIAL HISTORY: Smoker, denies alcohol, lives with his . OOW Vital Signs Temp Pulse Resp BP Pulse Ox 98.0 F 66 18 109/75 99 07/16/18 07:47 07/16/18 07:47 07/16/18 12:39 07/16/18 07:47 07/16/18 07:47 EXAM: GENERAL: Minimal distress ABDOMEN: SOme tenderness EXTREMITIES: Normal tone NEUROLOGIC: Moves all 4 extremities ASSESSMENT: 1. Chronic Pancreatitis 2. Abdominal Pain PLAN: Given his past alcohol abuse, and his history, he would have to be considered high risk for chronic opioid treatment. He might do better with a Fentanyl patch, which he is refusing. I would taper off IV Dilaudid in the next 24-48 hours and transition to PO or the Patch.
[2018-07-16] MEDS ORDERED: Insulin GLARGINE(*) 1 UNITS UNIT SUBCUT ONE (14:39)
[2018-07-16] MEDS ORDERED: Insulin LISPRO* 1 UNITS UNIT SUBCUT SCH (14:40)
[2018-07-16] MEDS ORDERED: Insulin GLARGINE(*) 1 UNITS UNIT ONE (14:46)
[2018-07-16] MEDS ORDERED: Insulin LISPRO* 1 UNITS UNIT SUBCUT ONE (14:47)
[2018-07-17] MEDS: HYDROmorphone INJ1* 1 MG/ML SYRINGE IV SLOW PU PRN ×3 (02:35→08:54)
[2018-07-17] MEDS: Insulin LISPRO* 1 UNITS UNIT SUBCUT SCH ×3 (02:42→11:33)
[2018-07-17] MEDS: Heparin VIAL(*) 5000 UNITS/ML VIAL (FIVE THOUSAND) SUBCUT SCH (05:18)
[2018-07-17] MEDS: Gabapentin CAP(*) 300 MG PO SCH (07:17)
[2018-07-17] MEDS: Sucralfate TAB* 1 GM PO SCH ×2 (07:17→11:34)
[2018-07-17] MEDS: Ursodiol CAP* 300 MG PO SCH (07:18)
[2018-07-17] MEDS: Gemfibrozil TAB* 600 MG PO SCH (07:18)
[2018-07-17] MEDS: FLUoxetine CAP* 20 MG PO SCH (07:18)
[2018-07-17] MEDS: Cholecalciferol TAB* 400 UNIT PO SCH (07:18)
[2018-07-17] MEDS ORDERED: Insulin GLARGINE(*) 1 UNITS UNIT SUBCUT SCH (09:54)
--- NOTE | 2018-07-17 10:37 | PN ---
Progress Note - Progress Note Date of Service: 07/17/18 Note: Time spent on discharge including exam of patient, discussion with patient, nurse, CM, retail pharmacist, Dr. Crenshaw, review of EMR and preparation of discharge documents including ISTOP is 50 minutes.
[2018-07-17 11:37] VITALS: BP 129/75
--- NOTE | 2018-07-17 11:40 | DS ---
CC: Azael Olvera MD * DISCHARGE SUMMARY: DATE OF ADMISSION: 07/14/18 DATE OF DISCHARGE: 07/17/18 HOSPITAL COURSE: This 43-year-old man was admitted with nausea, vomiting, and abdominal pain. He has a very long history of chronic pancreatitis due to alcohol abuse. He quit drinking in 2002 when he was incarcerated. He also had familial hypertriglyceridemia. He has insulin-dependent diabetes. He has had surgery on his pancreas as well. I note that he has had 19 CT scans of the abdomen and pelvis here, I suspect he is going to other hospitals as there are some gaps in the time scale of the record here. The patient was made n.p.o., given intravenous fluids and intravenous hydromorphone. He was advanced to clear to liquids. We felt that he got as much as benefit as he could from here and would be able to be treated with oral hydromorphone at home. I am giving him the same dose that was prescribed a few weeks ago. I did have Dr. Crenshaw see him. Once again Dr. Crenshaw recommended a fentanyl patch to the patient, which the patient once again refused. FINAL DIAGNOSES: 1. Chronic pancreatitis due to alcoholism. 2. Familial hypertriglyceridemia. 3. Diabetes mellitus. 4. Functional asplenia. DISCHARGE MEDICATIONS: 1. Gemfibrozil 600 mg b.i.d. 2. Hydromorphone 4 mg every 4 hours p.r.n. dispensed 84. 3. Humulin U-500 as prescribed. 4. Promethazine 25 mg every 8 hours p.r.n. 5. Cholecalciferol 400 units daily. 6. Promethazine suppository every 4 hours p.r.n. 7. Gabapentin 300 mg t.i.d. 8. Nicotine inhaler 10 mg every 2 hours p.r.n. 9. Nicotine patch 21 mg per day. 10. Sucralfate 1 g t.i.d. 11. Ursodiol 300 mg t.i.d. 12. Lantus insulin 40 units daily. CONDITION ON DISCHARGE: Stable. DISPOSITION ON DISCHARGE: Discharge home. [id number]/[facility] #: [id number] MTDD
== END 2018-07-17 12:20 | disposition home or self-care (01) | DRG 282 ==
LOC: ED 11:42 → ICU 14:11 → MED 07-15 10:14
PROVIDERS: ADMIT Pediatrics; ATTEND Internal Medicine
DX: K86.0 Alcohol-induced chronic pancreatitis (principal); E11.65 Type 2 diabetes mellitus with hyperglycemia; E78.1 Pure hyperglyceridemia; E11.9 Type 2 diabetes mellitus without complications; E78.5 Hyperlipidemia, unspecified; F17.210 Nicotine dependence, cigarettes, uncomplicated; F10.21 Alcohol dependence, in remission; Z79.4 Long term (current) use of insulin; Z79.899 Other long term (current) drug therapy; Z88.6 Allergy status to analgesic agent; Z88.5 Allergy status to narcotic agent; Z83.3 Family history of diabetes mellitus; Z82.49 Family history of ischemic heart disease and other diseases of the circulatory system; Z90.81 Acquired absence of spleen
CPT/HCPCS: 36415; 80048; 80053; 80061; 81003; 82803; 82947; 83036; 83605; 83690; 83721; 83735; 84100; 84132; 85025; 86140; 87641; 93922; 99285; A9270-GY; J1170; J1644; J1815; J2405

== ENCOUNTER 2018-07-23 21:31 | Emergency (ER) | payer OTHER ==
[2018-07-23] MEDS ORDERED: NS 0.9% 1000 ML* 1,000 ML IV ONE (21:49)
[2018-07-23] MEDS ORDERED: HYDROmorphone INJ* 2 MG/ML CARPUJECT SYRINGE IV SLOW PU ONE (21:49)
--- NOTE | 2018-07-23 22:01 | ED ---
Abdominal Pain/Male - HPI Summary HPI Summary: This patient is a 43 year old M presenting to [facility] with a chief complaint of epigastric abdominal pain radiating to left kidney and upper chest since 15:30 today. The patient rates the pain 8/10 in severity. Patient reports SOB. Patient denies diarrhea, nausea, and vomiting. Patient reports that the ganglion block last time did not help. He takes hydromorphone at home and currently sees Dr. Olvera with the [facility]. Patient reports he had a specialist in [place] who was going to put in a feeding tube, but the pancreas was too acute and he was too malnourished. He pancreatic enzymes and insulin 4x a day. Patient reports his blood sugar has been good, normally between 200-400. He has been on a no-fat diet for 2 weeks. - History of Current Complaint Chief Complaint: EDAbdPain Stated Complaint: CHEST/ABD PAIN Time Seen by Provider: 07/23/18 21:41 Hx Obtained From: Patient Onset/Duration: Sudden Onset, Lasting Hours - Since 15:30 today Severity Currently: Severe Pain Intensity: 8 Pain Scale Used: 0-10 Numeric Location: Epigastric Radiates: Yes Radiates to: Other - Left kidney and upper chest Associated Signs And Symptoms: Positive: Other - SOB. Negative: Nausea, Vomiting, Diarrhea - Allergies/Home Medications Allergies/Adverse Reactions: Allergies Allergy/AdvReac Type Severity Reaction Status Date / Time acetaminophen [From Tylenol] AdvReac Intermediate GI Upset Verified 07/23/18 21: 38 codeine AdvReac Intermediate GI Upset Verified 07/23/18 21:38 ibuprofen AdvReac Intermediate GI Upset Verified 07/23/18 21:38 PMH/Surg Hx/FS Hx/Imm Hx Endocrine/Hematology History: Reports: Hx Diabetes - type 1, 2ndry to pancreatitis; h/o DKA, Other Endocrine/Hematological Disorders - pancreatitis, h /o necrotysing Denies: Hx Thyroid Disease Cardiovascular History: Reports: Hx Hypercholesterolemia Denies: Hx Congestive Heart Failure, Hx Hypertension Respiratory History: Denies: Hx Asthma, Hx Chronic Obstructive Pulmonary Disease (COPD) GI History: Reports: Hx Gastroesophageal Reflux Disease, Other GI Disorders - Pancreatitis - chronic, splenic necrosis Denies: Hx Ulcer History: Denies: Hx Dialysis, Hx Renal Disease Sensory History: Denies: Hx Cataracts, Hx Contacts or Glasses, Hx Eye Injury, Hx Eye Prosthesis, Hx Glaucoma, Hx Legally Blind, Hx Macular Degeneration, Hx Vision Problem, Hx Deafness, Hx Hearing Aid, Hx Hearing Problem, Other Sensory Impairments Opthamlomology History: Denies: Hx Cataracts, Hx Contacts or Glasses, Hx Eye Injury, Hx Eye Prosthesis, Hx Glaucoma, Hx Legally Blind, Hx Macular Degeneration, Hx Vision Problem, Other Sensory Impairments Neurological History: Denies: Hx Dementia, Hx Developmental Delay, Hx Headaches, Hx Migraine, Hx Nerve Disease, Hx Seizures, Hx Spinal Cord Injury, Hx Transient Ischemic Attacks (TIA), Other Neuro Impairments/Disorders Psychiatric History: Reports: Hx Depression - Surgical History Surgery Procedure, Year, and Place: skin grafting at 18 months of age on forehead, PIECE OF PANCREAS REMOVED 08/2014 @ [place], [place] Hx Anesthesia Reactions: No - Immunization History Date of Tetanus Vaccine: utd Date of Influenza Vaccine: fall 2016 Infectious Disease History: No Infectious Disease History: Reports: Hx Clostridium Difficile Denies: Hx Hepatitis, Hx Human Immunodeficiency Virus (HIV), Hx of Known/ Suspected MRSA, Hx Shingles, Hx Tuberculosis, Traveled Outside the [place] in Last 30 Days - Family History Known Family History: Positive: Other - brother high triglycerides (>1,000) - Social History Alcohol Use: None Hx Substance Use: Yes Substance Use Type: Reports: Marijuana Substance Use Comment - Amount & Last Used: Marijuana used occasionally to increase appetite and treat pain Hx Tobacco Use: Yes - trying to cut down/quit - 3 a day as of late Smoking Status (MU): Light Every Day Tobacco Smoker Type: Cigarettes Amount Used/How Often: 1/2 ppd Have You Smoked in the Last Year: Yes Review of Systems Positive: Shortness Of Breath Negative: Vomiting, Diarrhea, Nausea All Other Systems Reviewed And Are Negative: Yes Physical Exam - Summary Physical Exam Summary: Appearance: Well appearing, no pain distress Skin: warm, dry, reflects adequate perfusion Head/face: normal Eyes: EOMI, ZAINAB ENT: mucous membranes moist Neck: supple, non-tender Respiratory: CTA, breath sounds present Cardiovascular: RRR, pulses symmetrical. Heartrate is at 70. Abdomen: Midline surgical scar in abdomen. Epigastric discomfort. Increased bowel sounds. Bowel Sounds: present Musculoskeletal: normal, strength/ROM intact Neuro: normal, sensory motor intact, A&Ox3 Triage Information Reviewed: Yes Vital Signs On Initial Exam: Initial Vitals Temp Pulse Resp BP Pulse Ox 98.1 F 79 18 113/84 98 07/23/18 21:33 07/23/18 21:33 07/23/18 21:33 07/23/18 21:33 07/23/18 21:33 Vital Signs Reviewed: Yes Diagnostics - Vital Signs Vital Signs Temp Pulse Resp BP Pulse Ox 07/23/18 21:33 98.1 F 79 18 113/84 98 - Laboratory Result Diagrams: 07/23/18 21:50 07/23/18 21:50 Lab Statement: Any lab studies that have been ordered have been reviewed, and results considered in the medical decision making process. Abdominal Pain Fem Course/Dx - Course Course Of Treatment: Nurses note reviewed. Patient is is a frequent visitor for comorbidity related to chronic pancreatitis/chronic abdominal pain. Today he is very comfortable appearing with heart rates in the 60s and 70s and normal blood pressure. His LFTs are elevated somewhat today but his triglycerides are good for him. He is able to be treated here with relief and was discharged home in good condition. Again, he does have significant comorbidity and he was given explicit return instructions. - Diagnoses Differential Diagnosis/HQI/PQRI: Other - Hepatitis, pancreatitis, bowel obstruction, DKA Provider Diagnoses: Chronic abdominal pain, Diabetes mellitus with hyperglycemia, Hypertriglyceridemia, Elevated LFTs Discharge - Sign-Out/Discharge Documenting (check all that apply): Patient Departure - D/C - Discharge Plan Condition: Improved Disposition: HOME Patient Education Materials: Chronic Abdominal Pain (ED) Referrals: Don Heller MD [Primary Care Provider] - Additional Instructions: Drink plenty of fluids, bland diet as tolerated. Call your doctor first thing in the morning to schedule prompt follow-up. Return if worse, vomiting, fever, new symptoms or other concerns as discussed. - Billing Disposition and Condition Condition: IMPROVED Disposition: Home - Attestation Statements Document Initiated by Scribe: Yes Documenting Scribe: Zachary Morales Provider For Whom Andra is Documenting (Include Credential): Vineet Cruz MD Scribe Attestation: Zachary Garcia, scribed for Vineet Cruz MD on 07/24/18 at 0124. Scribe Documentation Reviewed: Yes Provider Attestation: The documentation as recorded by the Zachary miller accurately reflects the service I personally performed and the decisions made by me, Vineet Cruz MD Status of Scribe Document: Viewed
[2018-07-23 22:05] LABS: ABS Basophils 0.1 10^3/ul (0-0.2); ABS Eosinophils 0.1 10^3/ul (0-0.6); ABS Lymphocytes 2.1 10^3/ul (1.0-4.8); ABS Monocytes 1.4 10^3/ul (0-0.8); ABS Neutrophils 6.9 10^3/ul (1.5-7.7); ABS Nucleated RBC 0 10^3/ul; Eosinophil % 1.4 %; Hematocrit 44 % (42-52); Hemoglobin 15.4 g/dl (14.0-18.0); Lymphocyte % 19.8 %; Mean Corpuscular HGB Conc 35 g/dl (31-36); Mean Corpuscular Hemoglobin 32 pg (27-31); Mean Corpuscular Volume 93 fL (80-94); Mean Platelet Volume 8.8 fL (7.4-10.4); Nucleated Red Blood Cells % 0.1; Platelet Count 342 10^3/ul (150-450); Red Cell Distribution Width 14 % (10.5-15); White Blood Count 10.6 10^3/ul (3.5-10.8)
[2018-07-23 22:21] LABS: Albumin 4.1 g/dL (3.2-5.2); Albumin/Globulin Ratio 1.4 (1-3); BUN/Creatinine Ratio 15.9 (8-20); C Reactive Protein 2.52 mg/L (<8.01); Calcium 9.2 mg/dL (8.6-10.3); EGFR Non-African American 125.7 (>60); Total Bilirubin 0.6 mg/dL (0.2-1.0); Total Protein 7.1 g/dL (6.4-8.9)
[2018-07-23] MEDS ORDERED: Insulin REGULAR(*) 1 UNITS UNIT IV PUSH ONE (22:29)
[2018-07-23] MEDS ORDERED: DiMENhydriNATE IV* 50 MG/ML VIAL IV PUSH ONE (22:57)
[2018-07-23] MEDS ORDERED: HYDROmorphone INJ1* 1 MG/ML SYRINGE IV SLOW PU ONE (23:00)
[2018-07-23 23:04] LABS: Potassium 3.8 mmol/L (3.5-5.0)
[2018-07-24 01:05] VITALS: BP 118/76
== END 2018-07-24 01:18 | disposition home or self-care (01) ==
LOC: ED 21:31
DX: R10.9 Unspecified abdominal pain (principal); E10.65 Type 1 diabetes mellitus with hyperglycemia; E78.1 Pure hyperglyceridemia; R79.89 Other specified abnormal findings of blood chemistry; G89.29 Other chronic pain; K86.1 Other chronic pancreatitis; F17.210 Nicotine dependence, cigarettes, uncomplicated; E78.00 Pure hypercholesterolemia, unspecified; K21.9 Gastro-esophageal reflux disease without esophagitis; F32.9 Major depressive disorder, single episode, unspecified; Z79.4 Long term (current) use of insulin
CPT/HCPCS: 36415; 80053; 83605; 83690; 84478; 85025; 86140; 96361; 96374; 96375; 96376; 99283; J1170; J1240

== ENCOUNTER 2018-07-25 20:39 | Emergency (ER) | payer OTHER ==
[2018-07-25 21:40] LABS: ABS Basophils 0.1 10^3/ul (0-0.2); ABS Eosinophils 0.1 10^3/ul (0-0.6); ABS Lymphocytes 2.3 10^3/ul (1.0-4.8); ABS Monocytes 0.8 10^3/ul (0-0.8); ABS Neutrophils 5.7 10^3/ul (1.5-7.7); ABS Nucleated RBC 0 10^3/ul; Eosinophil % 1.3 %; Hematocrit 48 % (42-52); Hemoglobin 16.5 g/dl (14.0-18.0); Lymphocyte % 25.6 %; Mean Corpuscular HGB Conc 34 g/dl (31-36); Mean Corpuscular Hemoglobin 32 pg (27-31); Mean Corpuscular Volume 94 fL (80-94); Mean Platelet Volume 8.7 fL (7.4-10.4); Nucleated Red Blood Cells % 0; Platelet Count 320 10^3/ul (150-450); Red Blood Count 5.14 10^6/ul (4.00-5.40); Red Cell Distribution Width 14 % (10.5-15); White Blood Count 9.1 10^3/ul (3.5-10.8)
[2018-07-25] MEDS ORDERED: Ondansetron INJ* 2 MG/ML VIAL IV ONE (21:52)
[2018-07-25] MEDS ORDERED: NS 0.9% 1000 ML* 1,000 ML IV ONE (21:52)
[2018-07-25] MEDS ORDERED: Morphine VIAL* 10 MG/ML 1 ML VIAL IV ONE ×2 (21:52→23:13)
[2018-07-25 21:55] LABS: Albumin 4.3 g/dL (3.2-5.2); Albumin/Globulin Ratio 1.4 (1-3); BUN/Creatinine Ratio 12.8 (8-20); Calcium 9.5 mg/dL (8.6-10.3); Potassium 4.1 mmol/L (3.5-5.0); Total Bilirubin 0.6 mg/dL (0.2-1.0); Total Protein 7.3 g/dL (6.4-8.9)
[2018-07-25] MEDS ORDERED: Insulin REGULAR(*) 1 UNITS UNIT SUBCUT ONE (22:15)
[2018-07-25] MEDS ORDERED: Morphine VIAL* 4 MG/ML VIAL (1 ml vial) ONE ×2 (22:25→23:24)
--- NOTE | 2018-07-25 23:43 | ED ---
Abdominal Pain/Male - HPI Summary HPI Summary: Patient from [facility] complains of epigastric/right upper quadrant pain, nausea vomiting starting today. Patient has history of chronic pancreatitis. States he has been in alf for 2 days and therefore has not had his pain medication for chronic pancreatitis for 2 days. States symptoms may be related to withdrawal. Denies fever, cough, sore throat, CP, SOB, change in urine. Medical history is DM 1, chronic pancreatitis. - History of Current Complaint Chief Complaint: EDAbdPain Stated Complaint: ABD PAIN Time Seen by Provider: 07/25/18 21:22 Hx Obtained From: Patient Onset/Duration: Sudden Onset Timing: Constant Severity Initially: Severe Severity Currently: Severe Pain Intensity: 10 Pain Scale Used: 0-10 Numeric Location: Discrete At: RUQ, Epigastric Radiates: No Character: Sharp, Burning, Cramping Aggravating Factor(s): Food Alleviating Factor(s): Nothing Associated Signs And Symptoms: Positive: Nausea, Vomiting - Allergies/Home Medications Allergies/Adverse Reactions: Allergies Allergy/AdvReac Type Severity Reaction Status Date / Time acetaminophen [From Tylenol] AdvReac Intermediate GI Upset Verified 07/25/18 20: 49 codeine AdvReac Intermediate GI Upset Verified 07/25/18 20:49 ibuprofen AdvReac Intermediate GI Upset Verified 07/25/18 20:49 PMH/Surg Hx/FS Hx/Imm Hx Endocrine/Hematology History: Reports: Hx Diabetes - type 1, 2ndry to pancreatitis; h/o DKA, Other Endocrine/Hematological Disorders - pancreatitis, h /o necrotysing Denies: Hx Thyroid Disease Cardiovascular History: Reports: Hx Hypercholesterolemia Denies: Hx Congestive Heart Failure, Hx Hypertension Respiratory History: Denies: Hx Asthma, Hx Chronic Obstructive Pulmonary Disease (COPD) GI History: Reports: Hx Gastroesophageal Reflux Disease, Other GI Disorders - Pancreatitis - chronic, splenic necrosis Denies: Hx Ulcer History: Denies: Hx Dialysis, Hx Renal Disease Sensory History: Denies: Hx Cataracts, Hx Contacts or Glasses, Hx Eye Injury, Hx Eye Prosthesis, Hx Glaucoma, Hx Legally Blind, Hx Macular Degeneration, Hx Vision Problem, Hx Deafness, Hx Hearing Aid, Hx Hearing Problem, Other Sensory Impairments Opthamlomology History: Denies: Hx Cataracts, Hx Contacts or Glasses, Hx Eye Injury, Hx Eye Prosthesis, Hx Glaucoma, Hx Legally Blind, Hx Macular Degeneration, Hx Vision Problem, Other Sensory Impairments Neurological History: Denies: Hx Dementia, Hx Developmental Delay, Hx Headaches, Hx Migraine, Hx Nerve Disease, Hx Seizures, Hx Spinal Cord Injury, Hx Transient Ischemic Attacks (TIA), Other Neuro Impairments/Disorders Psychiatric History: Reports: Hx Depression - Surgical History Surgery Procedure, Year, and Place: skin grafting at 18 months of age on forehead, PIECE OF PANCREAS REMOVED 08/2014 @ [place], [place] Hx Anesthesia Reactions: No - Immunization History Date of Tetanus Vaccine: utd Date of Influenza Vaccine: fall 2016 Infectious Disease History: No Infectious Disease History: Reports: Hx Clostridium Difficile Denies: Hx Hepatitis, Hx Human Immunodeficiency Virus (HIV), Hx of Known/ Suspected MRSA, Hx Shingles, Hx Tuberculosis, Traveled Outside the [place] in Last 30 Days - Family History Known Family History: Positive: Other - brother high triglycerides (>1,000) - Social History Alcohol Use: None Hx Substance Use: Yes Substance Use Type: Reports: Marijuana Substance Use Comment - Amount & Last Used: Marijuana used occasionally to increase appetite and treat pain Hx Tobacco Use: Yes - trying to cut down/quit - 3 a day as of late Smoking Status (MU): Light Every Day Tobacco Smoker Type: Cigarettes Amount Used/How Often: 1/2 ppd Have You Smoked in the Last Year: Yes Review of Systems Constitutional: Negative Eyes: Negative ENT: Negative Cardiovascular: Negative Respiratory: Negative Positive: Abdominal Pain, Vomiting, Nausea Genitourinary: Negative Musculoskeletal: Negative Skin: Negative Neurological: Negative Psychological: Normal All Other Systems Reviewed And Are Negative: Yes Physical Exam - Summary Physical Exam Summary: Epigastric/right upper quadrant pain with palpation. Abdominal exam otherwise unremarkable. Physical exam otherwise unremarkable. Triage Information Reviewed: Yes Vital Signs On Initial Exam: Initial Vitals Temp Pulse Resp BP Pulse Ox 98.2 F 82 16 130/96 97 07/25/18 20:40 07/25/18 20:40 07/25/18 20:40 07/25/18 20:40 07/25/18 20:40 Vital Signs Reviewed: Yes Appearance: Positive: Well-Appearing Skin: Positive: Warm Head/Face: Positive: Normal Head/Face Inspection Eyes: Positive: Normal ENT: Positive: Normal ENT inspection Neck: Positive: Supple Respiratory/Lung Sounds: Positive: Clear to Auscultation Cardiovascular: Positive: Normal Abdomen Description: Positive: Other: Musculoskeletal: Positive: Normal Neurological: Positive: Normal Psychiatric: Positive: Normal AVPU Assessment: Alert - Whitney Coma Scale Best Eye Response: 4 - Spontaneous Best Motor Response: 6 - Obeys Commands Best Verbal Response: 5 - Oriented Coma Scale Total: 15 Diagnostics - Vital Signs Vital Signs Temp Pulse Resp BP Pulse Ox 07/25/18 22:36 20 07/25/18 22:14 71 115/79 97 07/25/18 22:00 73 97 07/25/18 21:45 76 103/80 97 07/25/18 21:33 73 97 07/25/18 20:40 98.2 F 82 16 130/96 97 - Laboratory Lab Results: Lab Results 07/25/18 07/25/18 07/25/18 Range/Units 21:26 21:26 22:19 WBC 9.1 (3.5-10.8) 10^3/ul RBC 5.14 (4.00-5.40) 10^6/ul Hgb 16.5 (14.0-18.0) g/dl Hct 48 (42-52) % MCV 94 (80-94) fL MCH 32 H (27-31) pg MCHC 34 (31-36) g/dl RDW 14 (10.5-15) % Plt Count 320 (150-450) 10^3/ul MPV 8.7 (7.4-10.4) fL Neut % (Auto) 63.4 % Lymph % (Auto) 25.6 % [place] % (Auto) 8.9 % Eos % (Auto) 1.3 % Baso % (Auto) 0.8 % Absolute Neuts (auto) 5.7 (1.5-7.7) 10^3/ul Absolute Lymphs (auto) 2.3 (1.0-4.8) 10^3/ul Absolute Monos (auto) 0.8 (0-0.8) 10^3/ul Absolute Eos (auto) 0.1 (0-0.6) 10^3/ul Absolute Basos (auto) 0.1 (0-0.2) 10^3/ul Absolute Nucleated RBC 0 10^3/ul Nucleated RBC % 0 VBG pH 7.45 H (7.32-7.43) VBG pCO2 37 L (41-51) mmHg VBG pO2 44.0 (35-45) mmHg VBG HCO3 25.8 (24-28) mmol/L VBG O2 Saturation 79.9 (70-80) % VBG Base Excess 1.8 (0.0-4.0) mmol/L Sodium 132 L (135-145) mmol/L Potassium 4.1 (3.5-5.0) mmol/L Chloride 99 L (101-111) mmol/L Carbon Dioxide 26 (22-32) mmol/L Anion Gap 7 (2-11) mmol/L BUN 12 (6-24) mg/dL Creatinine 0.94 (0.67-1.17) mg/dL Est GFR ( Amer) 106.5 (>60) Est GFR (Non-Af Amer) 88.0 (>60) BUN/Creatinine Ratio 12.8 (8-20) Glucose 405 H (70-100) mg/dL Calcium 9.5 (8.6-10.3) mg/dL Total Bilirubin 0.60 (0.2-1.0) mg/dL AST 283 H (13-39) U/L ALT 192 H (7-52) U/L Alkaline Phosphatase 313 H (34-104) U/L Total Protein 7.3 (6.4-8.9) g/dL Albumin 4.3 (3.2-5.2) g/dL Globulin 3.0 (2-4) g/dL Albumin/Globulin Ratio 1.4 (1-3) Lipase 91 H (11.0-82.0) U/L Result Diagrams: 07/25/18 21:26 07/25/18 21:26 Lab Statement: Any lab studies that have been ordered have been reviewed, and results considered in the medical decision making process. Abdominal Pain Fem Course/Dx - Course Course Of Treatment: Patient from [facility] complains of epigastric/right upper quadrant pain, nausea vomiting starting today. Patient has history of chronic pancreatitis. States he has been in alf for 2 days and therefore has not had his pain medication for chronic pancreatitis for 2 days. States symptoms may be related to withdrawal. Denies fever, cough, sore throat, CP, SOB, change in urine. Medical history is DM 1, chronic pancreatitis. Physical exam:Epigastric/right upper quadrant pain with palpation. Abdominal exam otherwise unremarkable. Physical exam otherwise unremarkable. Vital signs within normal limits and stable. Mildly elevated lipase at 91. Labs otherwise at patient baseline. Pain and nausea controlled with 8 mg morphine and Zofran. Multiple CT abdomen and pelvis on file. Most recent on 06/05 negative for acute process. Ultrasound of gallbladder and 05/11 negative. Chronic pancreatitis. Follow-up with primary care at alf for management. - Diagnoses Provider Diagnoses: Chronic pancreatitis Discharge - Sign-Out/Discharge Documenting (check all that apply): Patient Departure - Discharge Plan Condition: Stable Disposition: HOME Patient Education Materials: Pancreatitis (ED) Referrals: Don Heller MD [Primary Care Provider] - Additional Instructions: Follow-up with primary care for management of chronic pancreatitis. Return to the ED for any new or worsening symptoms - Billing Disposition and Condition Condition: STABLE Disposition: Home
[2018-07-26 00:36] VITALS: BP 115/84
== END 2018-07-26 00:36 | disposition home or self-care (01) ==
LOC: ED 20:39
DX: K86.1 Other chronic pancreatitis (principal); F17.210 Nicotine dependence, cigarettes, uncomplicated; E10.9 Type 1 diabetes mellitus without complications; E78.00 Pure hypercholesterolemia, unspecified; K21.9 Gastro-esophageal reflux disease without esophagitis
CPT/HCPCS: 36415; 80053; 82803; 83690; 85025; 96361; 96374; 96375; 96376; 99283; J2270; J2405

== ENCOUNTER 2018-10-29 18:04 | Inpatient (IN) | payer SELFPAY ==
--- OUTSIDE RECORDS SUMMARY | 2018-10-29 18:18 | XMS REPORT | Continuity of Care Document ---
:1975 External Reference #:[id number] Author Name Sienna Escobedo Care Team Providers Name Role Phone Michael Foreman M.D. 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 Payers Date Identification Numbers Payment Provider Subscriber Policy Number: [id number] [employer] Ryder Chinchilla PayID: [id number] [address] [address] [place] [address] PayID: [id number] [facility] Ryder Chinchilla [address] [place] [address] Advance Directives Description No Information Available Problems [...] and vomiting Azael Olvera MD Active Onset: 10/02/2018 Nondependent cannabis abuse, continuous Azael Olvera MD Active Onset: 10/02/2018 Chronic pancreatitis Azael Olvera MD Active Onset: 06/20/2018 Intermittent explosive disorder Azael Olvera MD Active Onset: 06/20/2018 Recurrent major depressive episodes Azael Olvera MD Active Family History Date Family Member(s) Observation Comments Father Diabetes Type II Mother due to Diabetes () Social History Type Date Description Comments Sex Unknown Marital Status Lives With Occupation unemployed Tobacco Use Start: Unknown Light tobacco smoker (10 or fewer cigarettes/day) Smoking Status Reviewed: 10/02/18 Light tobacco smoker (10 or fewer cigarettes/day) [...] Active Device 1unit use every 8 Wallace Karla/[place]hu[place]/Fl 2018 s hours with MD Kalei prince Monitoring sensor System Freestyle 06/06/ Active Misc 3unit place Wallace Karla/Sensor/Fl 2017 s device on MD Kalie prince Monitoring skin every System 10 days; use with reader every 8 hours Humalog Kwikpen 06/04/ Active Solution 100Unit/M 3ml sliding Azael 2018 Pen-Inject L scale four MD Wade times a day up to 18 units as needed True Metrix Go 05/30/ Active Kit w/Device 1unit For Type 1 E11.65 Azael Blood Glucose 2018 s Diabetes MD Wade Meter Mellitus, for blood glucose monitoring 4 times a day Lancets 28G 04/24/ Active Misc 28G 100un use with Rodrigo 2018 its glucometerKalie MD check bs 3-4 times daily Pen Lyons 03/14/ Active Misc 32G X 6 100un 1 needle Azael 2018 mm its twice a day MD Wade Gemfibrozil 03/14/ Active Tablets 600mg 60tab 1 tab twice Azael 2018 s a day MD Wade Lancets 03/08/ Active Misc 30G 100un For use E11.65 Azael 2018 its with your MD Wade glucometer Lantus Solostar / Active Solution 100Unit/M 60 units in Unknown 0000 Pen-Inject L Am 18 units in PM Ursodiol / Active Capsules 300mg take 1 Unknown 0000 capsule by mouth 3 times per day Carafate / Active Tablets 1gm take 1 Unknown 0000 tablet by mouth 3 times a day Protonix 04/24/ Hx Tablets DR 40mg 30tab take 1 tab R12 Azael 2017 - s daily MD Wade 2018 Phenergan 04/24/ Hx Solution 25mg/ml 25ml 12.5mg R11.2 Azael 2017 - every 6 MD Wade 10/01/ hours as 2019 needed for nausea Hydromorphone 04/24/ Hx Tablets 4mg 21tab take 1 tab Azael HCL 2018 - s every 8 MD Wade 10/01/ hours as 2019 needed for pain Humulin N 04/24/ Hx Suspension 100Unit/M 10ml use 20 E11.65 Wallace 2018 - L units at MD Kalie 05/25/ bedtime 2018 Humulin R 04/24/ Hx Solution 100Unit/M 20ml use 0-33 E11.65 Wallace 2018 - L units a day MD Kalie 06/04/ as per 2018 sliding scale Vitamin D 04/24/ Hx Capsules [id number] 14cap 1 once Azael (Ergocalciferol 2017 - s MD Wade ) 2018 Lantus 03/08/ Hx Solution 100Unit/M 10ml 30U twice a E11.65 Azael 2018 - L jose MD Wade 2017 Zofran 03/08/ Hx Tablets 4mg 30tab pt states K86.1 Azael 2018 - s not MD Wade 04/23/ effective-- 2018 -take 1 tab every 6 hours as needed for vomiting. Hydromorphone / Hx Tablets 4mg 14tab 1 tab by Azael COCHRAN 0000 - s mouth twice MD Wade 04/24/ daily as 2017 needed. Lantus / Hx Solution 100Unit/M 40 unit SQ Unknown 0000 - L daily 2017 Humalog / Hx Solution 100Unit/M sliding Unknown 0000 - L scale. 2017 Lovaza / Hx Capsules 1gm pt not Unknown 0000 - taking--sandra two 2018 capsules by mouth twice a day Vitamin D / Hx 50,000Uni 1 once Unknown 0000 - ts week 2017 Creon 00/ Hx Caps 73409-787 take 1 Unknown 0000 - Part 00Unit capsules with meals 2018 Gabapentin / Hx Capsules 300mg 90cap 1 by mouth Azael 0000 - s three times MD Wade day 2018 Folic Acid / Hx Tablets 1mg 1 by mouth Unknown 0000 - every day 2018 Actigall / Hx Capsules 300mg not Unknown 0000 - taking--1 by 2019 mouth three times a day Thiamine HCL / Hx Tablets 100mg 1 by mouth Unknown 0000 - every day 2018 Fluoxetine HCL / Hx Capsules 20mg 1 by mouth Unknown 0000 - every day 2018 Immunizations Description No Information Available Vital Signs Date Vital Result Comment 10/02/2018 2:16pm Height 70 inches 5'10" Weight 198.00 lb Heart Rate 80 /min BP Systolic 118 mmHg BP Diastolic 80 mmHg Respiratory Rate 16 /min Body Temperature 99.0 F Pain Level 7 O2 % BldC Oximetry 98 % BMI (Body Mass Index) 28.4 kg/m2 06/20/2018 10:50am Weight 168.00 lb Heart Rate [...] Result H/L Range Note Laboratory test 06/20/2018 [facility] In House Glucose Fingerstick 572 finding Laboratory test 04/24/2018 [facility] In House Glucose Random HI finding Ketones 1.1 Hemoglobin A1c >14.0 High 5-7 Laboratory test 03/08/2018 [facility] Procalcitonin <pending> finding [address] [place] [address] [phone] Procedures Date Code Description Status 07/10/2014 68640 EKG, Interpretation Only Completed 06/01/2014 28152 EKG, Interpretation Only Completed 05/31/2014 61883 EKG, Interpretation Only Completed Encounters Type Date Location Provider Dx Diagnosis Office Visit 07/17/2018 [facility] [place] Ernandez K86.0 Alcohol- induced 11:38a Assoc,karri Dsouza chronic Hospitalists pancreatitis E78.1 Pure hyperglyceridemia E11.9 Type 2 diabetes mellitus without complications Q89.01 Asplenia (congenital) Office Visit 07/16/2018 11:38a [facility] [place] K86.1 Other chronic Assoc,karri Ernandez M.D. pancreatitis Hospitalists E78.5 Hyperlipidemia, unspecified E11.9 Type 2 diabetes mellitus without complications Z72.0 Tobacco use Office Visit 07/15/2018 11:38a [facility] [place] K86.1 Other chronic Assoc,karri Ernandez M.D. pancreatitis Hospitalists E78.5 Hyperlipidemia, unspecified E11.9 Type 2 diabetes mellitus without complications Z72.0 Tobacco use Office Visit 07/14/2018 11:37a [facility] [place] K86.1 Other chronic Assoc,karri Maguire, DO pancreatitis Hospitalists E11.65 Type 2 diabetes mellitus with hyperglycemia Office Visit 06/20/2018 11:00a [facility] Azael Olvera E11.65 Type 2 diabetes [facility] mellitus with hyperglycemia F63.81 Intermittent explosive disorder F33.9 Major depressive disorder, recurrent, unspecified K85.90 Acute pancreatitis without necrosis or infection, unsp R11.2 Nausea with vomiting, unspecified F17.210 Nicotine dependence, cigarettes, uncomplicated E78.1 Pure hyperglyceridemia Office Visit 06/07/2018 9:16a [facility] Azael Olvera K85.90 Acute pancreatitis Assoc,karri RODRIGUEZ without necrosis Hospitalists or infection, unsp E78.1 Pure hyperglyceridemia Office Visit 06/06/2018 [facility] [place] E11.65 Type 2 diabetes 9:15a Assoc,karri Giron M.D. mellitus with Hospitalists hyperglycemia K85.90 Acute pancreatitis without necrosis or infection, unsp K29.00 Acute gastritis without bleeding Office Visit 05/30/2018 12:00p [facility] Azael Olvera, K86.1 Other chronic [facility] MD pancreatitis E11.65 Type 2 diabetes mellitus with hyperglycemia R11.2 Nausea with vomiting, unspecified D73.5 Infarction of spleen F17.210 Nicotine dependence, cigarettes, uncomplicated Office Visit 04/24/2018 1:00p [place] [facility] and Rodrigo Jade, K86.1 Other chronic Endocrinology of MD pancreatitis [facility] E78.1 Pure hyperglyceridemia E11.65 Type 2 diabetes mellitus with hyperglycemia Office Visit 04/24/2018 11:30a [facility] Azael Olvera, E11.65 Type 2 diabetes 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 MD pancreatitis D73.5 Infarction of spleen E11.65 Type 2 diabetes mellitus with hyperglycemia F17.210 Nicotine dependence, cigarettes, uncomplicated F06.31 Mood disorder due to known physiol cond w depressv features Office Visit 12/25/2017 [facility] [place] K85.90 Acute pancreatitis 11:11a Assoc,karri Palomo M.D. without necrosis Hospitalists or infection, unsp K86.1 Other chronic pancreatitis E78.1 Pure hyperglyceridemia E11.9 Type 2 diabetes mellitus without complications Office Visit 12/24/2017 [facility] [place]or[place] K85.90 Acute pancreatitis 11:10a Assoc,karri Maguire, without necrosis Hospitalists or infection, unsp K86.1 Other chronic pancreatitis E78.1 Pure hyperglyceridemia E11.9 Type 2 diabetes mellitus without complications Office Visit 06/22/2016 [facility] [place] K85.92 Acute pancreatitis 1:47p Assoc,karri Ernandez M.D. with infected Hospitalists necrosis, unspecified R10.9 Unspecified abdominal pain E78.1 Pure hyperglyceridemia G89.29 Other chronic pain [facility] K[facility]92 Acute pancreatitis 1:47p Asskarri marte M.D. with infected Hospitalists necrosis, unspecified R10.9 Unspecified abdominal pain E78.5 Hyperlipidemia, unspecified G89.29 Other chronic pain Office Visit 06/20/2016 [facility] Jacquelyn K85.92 Acute pancreatitis 1:46p Assoc,karri Leahy D.O. with infected Hospitalists necrosis, unspecified R10.9 Unspecified abdominal pain E78.1 Pure hyperglyceridemia Office Visit 05/30/2016 [facility] K85.90 Acute pancreatitis 10:09a Asskarri marte MD without necrosis Hospitalists or infection, unsp E11.01 Type 2 diabetes mellitus with hyperosmolarity with coma E78.1 Pure hyperglyceridemia Office Visit 05/29/2016 [facility] K85.90 Acute pancreatitis 10:08a Asskarri marte MD without necrosis Hospitalists or infection, unsp E11.01 Type 2 diabetes mellitus with hyperosmolarity with coma E78.1 Pure hyperglyceridemia Office Visit 05/28/2016 [facility] K85.90 Acute 10:08a karri Koch M.D. pancreatitis Hospitalists without necrosis or infection, unsp E11.01 Type 2 diabetes mellitus with hyperosmolarity with coma E78.1 Pure hyperglyceridemia Office Visit 05/27/2016 [facility] E11.01 Type 2 diabetes 10:07a karri Koch M.D. mellitus with Hospitalists hyperosmolarity with coma E78.1 Pure hyperglyceridemia K85.90 Acute pancreatitis without necrosis or infection, unsp Office Visit 05/26/2016 [facility] Michael Foreman, K85.90 Acute pancreatitis 10:07a karri Koch M.D. without necrosis Hospitalists or infection, unsp E11.01 Type 2 diabetes mellitus with hyperosmolarity with coma E78.1 Pure hyperglyceridemia Office Visit 03/21/2016 [facility] [place] K85.9 Acute pancreatitis, 12:38p karri Koch M.D. unspecified Hospitalists E11.9 Type 2 diabetes mellitus without complications K86.1 Other chronic pancreatitis Office Visit 03/20/2016 [facility] [place] K85.9 Acute pancreatitis, 12:38p karri Koch M.D. 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 unspecified Hospitalists E11.9 Type 2 diabetes mellitus without complications K86.1 Other chronic pancreatitis Z79.4 [facility] (current) use of insulin Office Visit 03/17/2016 [facility] Karson Gibson K85.9 Acute 12:36p karri Koch II, M.D. 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 unspecified Hospitalists E87.1 Hypo-osmolality and hyponatremia E11.9 Type 2 diabetes mellitus without complications E78.1 Pure hyperglyceridemia Office Visit 07/13/2015 [facility] [place] K85.9 Acute pancreatitis, 9:32a karri Koch M.D. unspecified Hospitalists E87.1 Hypo-osmolality and hyponatremia E11.9 Type 2 diabetes mellitus without complications Office Visit 11/10/2014 8:41a [facility] [place] 577.0 Pancreatitis Acute Assoc,karri Maguire, Hospitalists 789.00 Pain Abdominal Unspec Site 272.1 Hypertriglyceridemia Pure 250.00 Diabetes Mellitus W/O Compl Type II Or Unspec Controlled Office Visit 11/09/2014 8:41a [facility] [place] 577.0 Pancreatitis Acute Assoc,pc Ting, DO Hospitalists 789.00 Pain Abdominal Unspec Site 272.1 Hypertriglyceridemia Pure 250.00 Diabetes Mellitus W/O Compl Type II Or Unspec Controlled Office Visit 11/08/2014 [facility] Sugar Whitehn, 577.0 Pancreatitis Acute 8:41a karri Koch M.D. Hospitalists 789.00 Pain Abdominal Unspec Site 250.00 Diabetes Mellitus W/O Compl Type II Or Unspec Controlled 272.1 Hypertriglyceridemia Pure Office Visit 11/07/2014 8:40a [facility] [place] 577.0 Pancreatitis Acute Assoc,karri Brown M.D. Hospitalists 789.00 Pain Abdominal Unspec Site 272.1 Hypertriglyceridemia Pure 250.00 Diabetes Mellitus W/O Compl Type II Or Unspec Controlled Office Visit 07/15/2014 3:01p [facility] [place] 577.0 Pancreatitis Acute Assoc,karri Palomo M.D. 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 Pseudocyst Hospitalists Pancreas 577.1 Pancreatitis Chronic 577.0 Pancreatitis Acute 272.1 Hypertriglyceridemia Pure Office Visit 07/11/2014 3:00p [facility] Michael Foreman, 577.0 Pancreatitis Acute Assockarri M.D. 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 Hospitalists 250.00 Diabetes Mellitus W/O Compl Type II Or Unspec Controlled 272.1 Hypertriglyceridemia Pure Plan of Treatment No Information Available
[2018-10-29] MEDS ORDERED: Insulin REGULAR(*) 1 UNITS UNIT SUBCUT ONE ×2 (18:59→22:29)
--- NOTE | 2018-10-29 19:03 | ED ---
HPI Diabetic - HPI Summary HPI Summary: This pt is a 43 y/o male, with hx of Type 1 DM, presenting to [facility] c/o hyperglycemia. Pt reports he ran out of Humalog 5 days ago and is only taking Lantus. He notes he had a problem with his insurance and was unable to refill his prescription. He presents today not feeling well, with lack of energy, fatigue, body aches, abd pain. Pt with hx of DKA. - History Of Current Complaint Chief Complaint: EDDiabeticProb Time Seen by Provider: 10/29/18 18:44 Hx Obtained From: Patient Onset/Duration: Lasting Days, Still Present Timing: Days Severity Currently: Moderate Character: Alert, Other - lack of energy, fatigue Aggravating: Non-compliant Alleviating: Nothing Associated Signs & Symptoms: Abdominal Pain Related History: DM I, Hx of DKA - Allergies/Home Medications Allergies/Adverse Reactions: Allergies Allergy/AdvReac Type Severity Reaction Status Date / Time acetaminophen [From Tylenol] AdvReac Intermediate GI Upset Verified 10/29/18 18: 10 codeine AdvReac Intermediate GI Upset Verified 10/29/18 18:10 ibuprofen AdvReac Intermediate GI Upset Verified 10/29/18 18:10 PMH/Surg Hx/FS Hx/Imm Hx Endocrine/Hematology History: Reports: Hx Diabetes - type 1, 2ndry to pancreatitis; h/o DKA, Other Endocrine/Hematological Disorders - pancreatitis, h /o necrotysing Denies: Hx Thyroid Disease Cardiovascular History: Reports: Hx Hypercholesterolemia Denies: Hx Congestive Heart Failure, Hx Hypertension Respiratory History: Denies: Hx Asthma, Hx Chronic Obstructive Pulmonary Disease (COPD) GI History: Reports: Hx Gastroesophageal Reflux Disease, Other GI Disorders - Pancreatitis - chronic, splenic necrosis Denies: Hx Ulcer History: Denies: Hx Dialysis, Hx Renal Disease Sensory History: Denies: Hx Cataracts, Hx Contacts or Glasses, Hx Eye Injury, Hx Eye Prosthesis, Hx Glaucoma, Hx Legally Blind, Hx Macular Degeneration, Hx Vision Problem, Hx Deafness, Hx Hearing Aid, Hx Hearing Problem, Other Sensory Impairments Opthamlomology History: Denies: Hx Cataracts, Hx Contacts or Glasses, Hx Eye Injury, Hx Eye Prosthesis, Hx Glaucoma, Hx Legally Blind, Hx Macular Degeneration, Hx Vision Problem, Other Sensory Impairments Neurological History: Denies: Hx Dementia, Hx Developmental Delay, Hx Headaches, Hx Migraine, Hx Nerve Disease, Hx Seizures, Hx Spinal Cord Injury, Hx Transient Ischemic Attacks (TIA), Other Neuro Impairments/Disorders Psychiatric History: Reports: Hx Depression - Surgical History Surgery Procedure, Year, and Place: skin grafting at 18 months of age on forehead, PIECE OF PANCREAS REMOVED 08/2014 @ [place], [place] Hx Anesthesia Reactions: No - Immunization History Date of Tetanus Vaccine: utd Date of Influenza Vaccine: fall 2016 Infectious Disease History: No Infectious Disease History: Reports: Hx Clostridium Difficile Denies: Hx Hepatitis, Hx Human Immunodeficiency Virus (HIV), Hx of Known/ Suspected MRSA, Hx Shingles, Hx Tuberculosis, Traveled Outside the [place] in Last 30 Days - Family History Known Family History: Positive: Other - brother high triglycerides (>1,000) - Social History Alcohol Use: None Hx Substance Use: Yes Substance Use Type: Reports: Marijuana Substance Use Comment - Amount & Last Used: Marijuana used occasionally to increase appetite and treat pain Hx Tobacco Use: Yes - trying to cut down/quit - 3 a day as of late Smoking Status (MU): Light Every Day Tobacco Smoker Type: Cigarettes Amount Used/How Often: 1/2 ppd Have You Smoked in the Last Year: Yes Review of Systems Positive: Fatigue. Negative: Fever Positive: Abdominal Pain Positive: Myalgia All Other Systems Reviewed And Are Negative: Yes Physical Exam - Summary Physical Exam Summary: Appearance: Well appearing, no pain distress Skin: warm, dry, reflects adequate perfusion Head/face: normal Eyes: EOMI, ZAINAB ENT: normal Neck: supple, non-tender Respiratory: CTA, breath sounds present Cardiovascular: RRR, pulses symmetrical Abdomen: soft, tenderness in the left and upper lower quadrants Musculoskeletal: normal, strength/ROM intact Neuro: normal, sensory motor intact, A&Ox3 Triage Information Reviewed: Yes Vital Signs On Initial Exam: Initial Vitals Temp Pulse Resp BP Pulse Ox 98.8 F 96 18 134/100 99 10/29/18 18:07 10/29/18 18:07 10/29/18 18:07 10/29/18 18:07 10/29/18 18:07 Vital Signs Reviewed: Yes Diagnostics - Vital Signs Vital Signs Temp Pulse Resp BP Pulse Ox 10/29/18 18:07 98.8 F 96 18 134/100 99 - Laboratory Lab Results: Lab Results 10/29/18 Range/Units 18:26 POC Glucose (mg/dL) > 444 H* (70-100) mg/dL Result Diagrams: 10/29/18 19:00 10/29/18 20:57 Lab Statement: Any lab studies that have been ordered have been reviewed, and results considered in the medical decision making process. Diabetic Course/Dx - Course Assessment/Plan: Pt is a 43 y/o male, with hx of Type 1 DM, who presents with hyperglycemia. Pt noncompliant with Humalog since 5 days ago due to insurance problems. He has only been taking Lantus. Blood work, UA obtained. Glucose is 526. In the ED course the pt was given IV fluids, Insulin, and Tramadol. I discussed the case with Dr. Glass, hospitalist, who accepted the pt for admission. - Diagnoses Differential Dx: Diabetic Ketoacidosis, Hyperglycemia, Hyperosmolar State Provider Diagnoses: Uncontrolled diabetes mellitus - Physician Notifications Discussed Care Of Patient With: Jaziel Glass - hospitalist Time Discussed With Above Provider: 21:01 Instructed by Provider To: Admit As Inpatient Discharge - Sign-Out/Discharge Documenting (check all that apply): Patient Departure - Admit [place] [facility] [place] Patient Received Moderate/Deep Sedation with Procedure: No - Discharge Plan Condition: Stable Disposition: ADMITTED TO [facility] Prescriptions: Insulin Glargine,Hum.rec.anlog [Lantus] 50 unit SQ BID #1 vial Insulin Regular 500 Unit/ml [Humulin R U-500 (Concentrated)] 50 unit SUBCUT ACHS 30 Days #1 inj Referrals: Don Heller MD [Primary Care Provider] - - Billing Disposition and Condition Condition: STABLE Disposition: Admitted to [facility] - Attestation Statements Document Initiated by Scribe: Yes Documenting Scribe: Angelica Scanlon Provider For Whom Andra is Documenting (Include Credential): Con Dunbar MD Scribe Attestation: Angelica Garcia, scribed for Con Dunbar MD on 10/29/18 at 5942. Scribe Documentation Reviewed: Yes Provider Attestation: The documentation as recorded by the Angelica miller accurately reflects the service I personally performed and the decisions made by me, Con Dunbar MD Status of Scribe Document: Viewed
[2018-10-29 19:25] LABS: ABS Basophils 0.1 10^3/ul (0-0.2); ABS Eosinophils 0.3 10^3/ul (0-0.6); ABS Lymphocytes 2.6 10^3/ul (1.0-4.8); ABS Monocytes 0.8 10^3/ul (0-0.8); ABS Neutrophils 6.5 10^3/ul (1.5-7.7); ABS Nucleated RBC 0 10^3/ul; Eosinophil % 2.5 %; Hematocrit 54 % (36-46); Hemoglobin 19.2 g/dL (14.0-18.0); Lymphocyte % 25.1 %; Mean Corpuscular HGB Conc 36 g/dL (31-36); Mean Corpuscular Hemoglobin 33 pg (27-31); Mean Corpuscular Volume 92 fL (80-94); Mean Platelet Volume 9.5 fL (7.4-10.4); Nucleated Red Blood Cells % 0.2; Platelet Count 317 10^3/uL (150-450); Red Blood Count 5.81 10^6 /uL (4.18-5.48); Red Cell Distribution Width 13 % (10.5-15); White Blood Count 10.2 10^3/uL (3.5-10.8)
[2018-10-29] MEDS ORDERED: NS 0.9% 1000 ML** 2,000 ML IV ONE (19:26)
[2018-10-29] MEDS ORDERED: Insulin REGULAR(*) 1 UNITS UNIT IV PUSH ONE ×2 (19:26→20:41)
[2018-10-29 19:27] LABS: ALT 84 U/L (7-52); Albumin/Globulin Ratio 1.5 (1-3); Alkaline Phosphatase 595 U/L (34-104); BUN/Creatinine Ratio 18.8 (8-20); Blood Urea Nitrogen 16 mg/dL (6-24); CO2 Carbon Dioxide 29 mmol/L (22-32); Calcium 10.1 mg/dL (8.6-10.3); Chloride 88 mmol/L (101-111); EGFR African American 119.6 (>60); EGFR Non-African American 98.8 (>60); Globulin 3.4 g/dL (2-4); Sodium 128 mmol/L (135-145); Total Protein 8.4 g/dL (6.4-8.9)
[2018-10-29 19:28] LABS: Troponin I 0.01 ng/mL (<0.04)
[2018-10-29] MEDS ORDERED: traMADol TAB* 50 MG PO ONE (19:36)
[2018-10-29 19:37] LABS: Glucose 520 mg/dL (70-100)
[2018-10-29 19:39] LABS: Anion Gap 11 mmol/L (2-11)
[2018-10-29 20:08] LABS: Urine Appearance Clear; Urine Color Yellow; Urine Ketones 1+ (Negative); Urine Protein 1+(30 mg/dL) (Negative); Urine Urobilinogen Negative (Negative)
[2018-10-29 20:09] LABS: Urine Bilirubin Negative (Negative); Urine Blood Negative (Negative); Urine Glucose 3+(>=500 mg/dL) (Negative); Urine Nitrite Negative (Negative)
[2018-10-29] MEDS ORDERED: NS 0.9% 1000 ML** 1,000 ML IV ONE (20:43)
[2018-10-29 21:31] LABS: Glucose Confirmatory 501 mg/dL (70-100)
[2018-10-29] MEDS ORDERED: Insulin GLARGINE(*) 1 UNITS UNIT SUBCUT ONE ×2 (22:01→22:28)
[2018-10-29] MEDS ORDERED: Dextrose 50% Syringe 50 ML* 25 GM/50 ML SYRINGE IV PUSH PRN (22:32)
--- NOTE | 2018-10-29 22:38 | ADMNOTE ---
Subjective Date of Service: 10/29/18 Interval History: HISTORY AND PHYSICAL PCP: Azael Olvera CC: hyperglycemia HPI: Patient is a 43 year old man with type 1 diabetes, history of non- compliance, who presented to ER with fatigue, dizziness. He has had DKA in the past, and he felt it was occurring again. His health insurance has lapsed multiple times in recent months, and he has run out of his Humalog insulin for 5 days, and is running short of his Lantus. He usually takes 60u in AM and 18 u in PM Lantus, and has sliding scale Humalog qAC, from 0-32 units, usually 3- 18 units. He was diagnosed with type 2 diabetes in 2001, but after pancreatitis with necrosis in 2013, converted to type 1. Pancreatitis may have been caused by alcohol or severe hyper-triglyceridemia, as both were present. Sees Dr. Jade for endocrinology Family History: Findings - Brother has high triglycerides, Mother age 54 of [place], Father has diabetes Social History: Findings - , 3 children, attentive and at bedside, unemployed, recently incarcerated, smokes 5 cig/day, quit alcohol 2013, drug use marijuana daily Past Medical History: Findings - PMH: chronic pancreatitis, h/o necrotizing pancreatitis, with splenic necrosis, pancreatic pseudocyst, familial hypertriglyeridemia, Type 1 diabetes as above; PSH cystectomy and cystogastrostomy in [id number] Review of Systems - Measurements Intake and Output: Intake and Output Last 24 Hours 10/27/18 10/28/18 10/29/18 10/30/18 06:59 06:59 06:59 06:59 Intake Total 1999 Balance 1999 Weight 90.718 kg Intake: IV Fluids 1999 - Review of Systems Constitutional Symptoms: Positive: Weight Loss Dermatology: Positive: Other - h/o nevus resection forehead, residual RT eyebrow HEENT: Positive: Normal Eyes: Positive: Normal Thyroid: Positive: Normal Pulmonary: Positive: Normal Cardiology: Positive: Normal Gastroenterology: Positive: Abdominal Pain, Nausea Negative: Vomiting, Anorexia, Diarrhea, Blood in Stools, Change in Bowel Habits Genital - Urinary: Positive: Normal Musculoskeletal: Negative: Joint Pain Endocrinology: Positive: Family Hx Endocrine Disorders, Diabetes Mellitus, Hyperglycemia Negative: Diabetic Foot Ulcers Neurology: Positive: Normal Psychiatry: Positive: Normal Objective Active Medications: Insulin Glargine (Lantus(*)) 68 units SUBCUT Q24H JENNIFER Insulin Human Lispro (Humalog*) 0 units SUBCUT Q4HR JENNIFER; Protocol Ambulatory Orders Gemfibrozil TAB* [Lopid TAB*] 600 mg PO BID 12/23/17 Cholecalciferol TAB* [Vitamin D TAB*] 400 unit PO DAILY 05/14/18 Insulin Regular 500 Unit/ml [Humulin R U-500 (Concentrated)] 0 - 18 unit SUBCUT ACHS 05/14/18 Promethazine TAB* [Phenergan Tab*] 25 mg PO Q8H PRN 05/14/18 Gabapentin CAP(*) [Neurontin 300 CAP(*)] 300 mg PO TID cap 06/07/18 Ursodiol CAP* [Actigall CAP 300 MG*] 300 mg PO TID cap 06/07/18 Hydromorphone HCl 4 mg PO TID PRN #21 tablet MDD 3 07/17/18 Insulin Glargine,Hum.rec.anlog [Lantus] 40 unit SQ DAILY #3 vial 07/17/18 Insulin Glargine,Hum.rec.anlog [Lantus] 50 unit SQ BID #1 vial 10/29/18 Insulin Regular 500 Unit/ml [Humulin R U-500 (Concentrated)] 50 unit SUBCUT ACHS 30 Days #1 inj 10/29/18 Vital Signs - 8 hr 10/29/18 10/29/18 10/29/18 18:07 18:28 19:00 Temperature 37.1 C Pulse Rate 96 79 Respiratory 18 15 17 Rate Blood Pressure 134/100 129/88 (mmHg) O2 Sat by Pulse 99 96 Oximetry 10/29/18 10/29/18 10/29/18 20:00 21:00 21:35 Temperature Pulse Rate Respiratory 19 17 16 Rate Blood Pressure 113/74 (mmHg) O2 Sat by Pulse Oximetry Oxygen Devices in Use Now: None Appearance: alert, no distress, quiet Eyes: No Scleral Icterus Ears/Nose/Mouth/Throat: NL Teeth, Lips, Gums, - - dry mouth Neck: NL Appearance and Movements; NL JVP Respiratory: Symmetrical Chest Expansion and Respiratory Effort Cardiovascular: NL Sounds; No Murmurs; No JVD Abdominal: No Hepatosplenomegaly, - - tender epigastric, +BS, no masses Lymphatic: No Cervical Adenopathy Extremities: No Edema Skin: - - large scar/skin graft on forehead, nevus in RT eyebrow Neurological: Alert and Oriented x 3 Lines/Tubes/Other Access: Clean, Dry and Intact Peripheral IV Nutrition: Taking PO's Result Diagrams: 10/30/18 05:08 10/30/18 05:08 Additional Lab and Data: Laboratory Tests 10/29/18 10/29/18 10/29/18 19:17 20:39 20:57 POC Glucose (mg/dL) > 444 H* Glucose Meter Confirm 501 H* Urine Color Yellow Urine Protein 1+(30 mg/dl) A Urine Ketones 1+ A Urine Glucose 3+(>=500 mg/dl) A 10/29/18 10/30/18 23:29 01:56 POC Glucose (mg/dL) 347 H 152 H Glucose Meter Confirm Urine Color Urine Protein Urine Ketones Urine Glucose Assess/Plan/Problems-Billing Assessment: 43 year old man with 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 Jade, may need samples of Lantus and humalog until insurance has been reinstated (2) Polycythemia Current Visit: Yes Status: Acute Priority: Medium Code(s): D75.1 - SECONDARY POLYCYTHEMIA SNOMED Code(s): 814617904 Comment: -may be hemoconcentrated, started on IVF, certainly has had polyuria -may have sleep apnea, secondary polycythemia, or even P vera. (3) Alkaline phosphatase elevation Current Visit: Yes Status: Acute Priority: Low Code(s): R74.8 - ABNORMAL LEVELS OF OTHER SERUM ENZYMES SNOMED Code(s): 533728002 Comment: -Very likely elevated AlkPhos relates to past pancreatic/splenic inflammation, or surgical changes. -Will check fractionated AlkPhos to assure not bone source. -05/23 liver ultrasound normal. (4) DVT prophylaxis Current Visit: No Status: Acute Priority: Medium Onset Date: 11/07/14 Code(s): DQC2726 - SNOMED Code(s): 507278378 Comment: -low risk, early ambulation Status and Disposition: observation
[2018-10-29] MEDS: Morphine 10 MG/ML VIAL (1 ml) IV PRN (23:56)
[2018-10-30] MEDS: NS 0.9% 1000 ML** 1,000 ML IV SCH ×3 (00:18→13:41)
[2018-10-30] MEDS: Insulin LISPRO* 1 UNITS UNIT SUBCUT SCH ×6 (02:02→21:15)
[2018-10-30] MEDS: Morphine 10 MG/ML VIAL (1 ml) IV PRN ×6 (03:26→21:15)
[2018-10-30 05:43] LABS: ABS Basophils 0 10^3/ul (0-0.2); ABS Eosinophils 0.2 10^3/ul (0-0.6); ABS Lymphocytes 2.8 10^3/ul (1.0-4.8); ABS Monocytes 0.6 10^3/ul (0-0.8); ABS Neutrophils 4.4 10^3/ul (1.5-7.7); ABS Nucleated RBC 0 10^3/ul; Eosinophil % 2.4 %; Hematocrit 47 % (36-46); Mean Corpuscular HGB Conc 34 g/dL (31-36); Mean Corpuscular Hemoglobin 33 pg (27-31); Mean Corpuscular Volume 97 fL (80-94); Mean Platelet Volume 9.8 fL (7.4-10.4); Nucleated Red Blood Cells % 0.4; Platelet Count 221 10^3/uL (150-450); Red Blood Count 4.89 10^6 /uL (4.18-5.48); Red Cell Distribution Width 13 % (10.5-15); White Blood Count 8.1 10^3/uL (3.5-10.8)
[2018-10-30 05:52] LABS: CO2 Carbon Dioxide 19 mmol/L (22-32); Calcium 7.7 mg/dL (8.6-10.3); Chloride 108 mmol/L (101-111); Sodium 136 mmol/L (135-145)
[2018-10-30 05:58] LABS: BUN/Creatinine Ratio 18.5 (8-20); Blood Urea Nitrogen 12 mg/dL (6-24); EGFR Non-African American 134.7 (>60); Glucose 51 mg/dL (70-100)
[2018-10-30 06:00] LABS: Anion Gap 9 mmol/L (2-11)
[2018-10-30] MEDS: Insulin GLARGINE(*) 1 UNITS UNIT SUBCUT SCH (08:51)
--- NOTE | 2018-10-30 10:37 | PN ---
Subjective Date of Service: 10/30/18 Interval History: Pt seen and examined. Meds and labs reviewed. CC: Chronic epigastric pain, mildly exacerbated for 2-3 days. ROS: Denied REID/dizziness, F/C, N/V, CP, SOB, increased cough, sputum production , diarrhea, constipation, dysuria, myalgias, arthralgias, throat pain, and new skin lesions. The rest of the 14 point ROS are unremarkable. PHYSICAL EXAM: GEN APPEARANCE: Awake, not in acute distress HEENT: NC/AT, PERRLA, moist oral mucosa, (-) throat erythema NECK: Soft, supple, (-) cervical LAD, (-)JVD HEART: S1S2 WNL, RRR, No MRG CHEST: CTA, BL, GAE, No W/R/R ABD: Soft, ND/(+)epigastric tenderness, chronic, NABS 4x Q EXT: No C/C/E SKIN: Warm to touch PSYCH: No active psychosis, hallucinations, depression, SI/HI Family History: Findings - Brother has high triglycerides, Mother age 54 of [place], Father has diabetes Social History: Findings - , 3 children, attentive and at bedside, unemployed, recently incarcerated, smokes 5 cig/day, quit alcohol 2013, drug use marijuana daily Past Medical History: Findings - PMH: chronic pancreatitis, h/o necrotizing pancreatitis, with splenic necrosis, pancreatic pseudocyst, familial hypertriglyeridemia, Type 1 diabetes as above; PSH cystectomy and cystogastrostomy in [id number] Objective Active Medications: Dextrose (D50w Syringe 50 Ml*) 12.5 gm IV PUSH .FOR FS < 60 - SS PRN PRN Reason: FS < 60 Gabapentin (Neurontin Cap(*)) 300 mg PO TID JENNIFER Gemfibrozil (Lopid Tab*) 600 mg PO BID AC JENNIFER Sodium Chloride (Ns 0.9% 1000 Ml) 1,000 mls @ 150 mls/hr IV PER RATE [facility] Last Admin: 10/30/18 06:50 Dose: 150 mls/hr Insulin Glargine (Lantus(*)) 50 units SUBCUT Q24H [facility] Last Admin: 10/30/18 08:51 Dose: 50 units Insulin Human Lispro (Humalog*) 0 units SUBCUT ACHS [facility]; Protocol Morphine Sulfate (Morphine 10 Mg/Ml Vial (1 Ml)) 5 mg IV Q3H PRN PRN Reason: PAIN Last Admin: 10/30/18 06:50 Dose: 5 mg Ursodiol (Actigall Cap*) 300 mg PO TID [facility] Vital Signs - 8 hr 10/30/18 10/30/18 10/30/18 03:26 05:01 06:50 Temperature Pulse Rate Respiratory 17 16 18 Rate Blood Pressure (mmHg) O2 Sat by Pulse Oximetry 10/30/18 10/30/18 07:39 08:40 Temperature 97.6 F Pulse Rate 66 Respiratory 16 16 Rate Blood Pressure 108/69 (mmHg) O2 Sat by Pulse 99 Oximetry Oxygen Devices in Use Now: None Result Diagrams: 10/30/18 05:08 10/30/18 09:40 Additional Lab and Data: Laboratory Tests 10/29/18 10/29/18 10/29/18 19:17 20:39 20:57 POC Glucose (mg/dL) > 444 H* Glucose Meter Confirm 501 H* Urine Color Yellow Urine Protein 1+(30 mg/dl) A Urine Ketones 1+ A Urine Glucose 3+(>=500 mg/dl) A 10/29/18 10/30/18 23:29 01:56 POC Glucose (mg/dL) 347 H 152 H Glucose Meter Confirm Urine Color Urine Protein Urine Ketones Urine Glucose Assess/Plan/Problems-Billing Assessment: 43 year old man with 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, here with out of control hyperglycemia - Patient Problems (1) Type 1 diabetes mellitus with hyperglycemia, with long-term current use of insulin Current Visit: Yes Status: Acute Priority: High Code(s): E10.65 - TYPE 1 DIABETES MELLITUS WITH HYPERGLYCEMIA SNOMED Code(s): 63010457 Comment: -Patient's glucose not able to be controlled in ER and pt has lost insurance recently after being released from care home ~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 Glass on 50 units qAM and 18 qPM; will observe with 50 units daily for now -Will touch base w/Care coordinators (2) Polycythemia Current Visit: Yes Status: Acute Priority: Medium Code(s): D75.1 - SECONDARY POLYCYTHEMIA SNOMED Code(s): 212953713 Comment: -May be hemoconcentrated, started on IVF, certainly has had polyuria likely due to presenting hyperglycemia; improved with hydration -Pt also smokes cigarettes and marijuana -Continue watchful waiting (3) Alkaline phosphatase elevation Current Visit: Yes Status: Acute Priority: Low Code(s): R74.8 - ABNORMAL LEVELS OF OTHER SERUM ENZYMES SNOMED Code(s): 626537182 Comment: -Very likely elevated AlkPhos relates to past pancreatic/splenic inflammation, or surgical changes. -Will check GGT and bone-specific ALP -05/23 liver ultrasound normal. Status and Disposition: -As above
[2018-10-30] MEDS: Gabapentin CAP(*) 300 MG PO SCH ×2 (13:42→21:14)
[2018-10-30] MEDS: Ursodiol CAP* 300 MG PO SCH ×2 (13:43→21:15)
[2018-10-30] MEDS: Gemfibrozil TAB* 600 MG PO SCH (16:51)
[2018-10-30] MEDS ORDERED: Nicotine Inhaler* 10 MG AMP INH PRN (19:45)
[2018-10-30] MEDS ORDERED: Nicotine GUM* 2 MG PO PRN (19:45)
[2018-10-30] MEDS ORDERED: Mouth Piece, Nicotine* 1 EACH CARTRIDGE INH PRN (20:08)
[2018-10-31] MEDS: NS 0.9% 1000 ML** 1,000 ML IV SCH (00:08)
[2018-10-31] MEDS: Morphine 10 MG/ML VIAL (1 ml) IV PRN ×2 (00:18→08:04)
[2018-10-31 05:08] VITALS: BP 114/81
[2018-10-31] MEDS: Gabapentin CAP(*) 300 MG PO SCH (08:07)
[2018-10-31] MEDS: Ursodiol CAP* 300 MG PO SCH (08:07)
[2018-10-31] MEDS: Insulin GLARGINE(*) 1 UNITS UNIT SUBCUT SCH (08:08)
[2018-10-31] MEDS: Gemfibrozil TAB* 600 MG PO SCH (08:08)
[2018-10-31 08:47] LABS: BUN/Creatinine Ratio 14.5 (8-20); EGFR African American 197.7 (>60); EGFR Non-African American 163.4 (>60); Hematocrit 52 % (36-46); Hemoglobin 17.7 g/dL (14.0-18.0); Mean Corpuscular HGB Conc 34 g/dL (31-36); Mean Corpuscular Hemoglobin 32 pg (27-31); Mean Corpuscular Volume 94 fL (80-94); Mean Platelet Volume 10.1 fL (7.4-10.4); Platelet Count 115 10^3/uL (150-450); Potassium 4.2 mmol/L (3.5-5.0); Red Blood Count 5.48 10^6 /uL (4.18-5.48); Red Cell Distribution Width 13 % (10.5-15); White Blood Count 9.2 10^3/uL (3.5-10.8)
[2018-10-31] MEDS: Insulin LISPRO* 1 UNITS UNIT SUBCUT SCH (08:48)
[2018-10-31 08:54] LABS: Albumin 3.6 g/dL (3.2-5.2); Calcium 8.1 mg/dL (8.6-10.3); Magnesium 1.7 mg/dL (1.9-2.7); Total Bilirubin 0.5 mg/dL (0.2-1.0)
[2018-10-31 08:59] LABS: Albumin/Globulin Ratio 1.3 (1-3); Globulin 2.7 g/dL (2-4); Phosphorus 2.4 mg/dL (2.5-5.0); Total Protein 6.3 g/dL (6.4-8.9)
[2018-10-31] MEDS ORDERED: Calcium Carbonate TAB* 1250 MG (CALCIUM 500 MG) PO SCH (10:00)
--- NOTE | 2018-10-31 13:36 | DS ---
CC: Dr. Jaziel Glass; Dr. Con Dunbar; Dr. Don Heller; Dr. Olvera AGAINST MEDICAL ADVICE DISCHARGE SUMMARY: DATE OF ADMISSION: DATE OF DISCHARGE: 10/31/18 DISCHARGE CONDITION: Improved. DISPOSITION: Discharge AMA to home. DISCHARGE DIAGNOSES: Are as follows: 1. Hyperglycemic hyperosmolar state, resolved. 2. Polycythemia likely due to dehydration as well as smoking cigarettes/tobacco abuse. 3. Tobacco abuse. 4. Hypocalcemia, the patient refused IV correction prior to against medical advice discharge. 5. Alkaline phosphatase elevation possibly due to diabetes causing hepatic steatosis. DISCHARGE MEDICATIONS: Are as follows: 1. Calcium carbonate 1250 mg p.o. daily. 2. Gabapentin 300 mg p.o. t.i.d. 3. Gemfibrozil 600 mg p.o. b.i.d. 4. Insulin glargine 18 units subcu q.p.m. and 50 units subcu q.a.m. 5. Nicotine gum 2 mg p.o. q.2 hours p.r.n. 6. Nicotine inhaler 10 mg inhalation q.2 hours p.r.n. 7. Ursodiol 300 mg p.o. t.i.d. 8. Hydromorphone 4 mg p.o. t.i.d., which is his home medication. 9. Promethazine 25 mg p.o. q.8 hours p.r.n. HISTORY OF PRESENT ILLNESS/HOSPITAL COURSE: The patient is a 43-year-old gentleman with hi story of type 1 diabetes mellitus with history of noncompliance, who presented to the ER with easy fa tigability and dizziness and was found to be in a hyperglycemic state with fingersticks above the upp er limit of detection. He was previously admitted for DKA in the past and mentioned that he has lost his health insurance many times. This time, he mentions that he was in half-way and when he was relea sed, he had his insurance for about a week until he was told that he will have to renew his applicati on. This then caused him to not be able to afford his medications leading to his symptoms. He was a dmitted to control his hyperglycemic hyperosmolar state, which was easily done after an overnight sta y and an application for an expedited health insurance was made. He was advised prior to him wanting to leave today against medical advice that he should wait for the expedited insurance before he gets discharged, and in addition that his serum calcium levels will need to be corrected prior to dischar ge, which can cause arrhythmia and possibly if not corrected. He refused to stay to wait for a n expedited review of his health insurance as well as to correct his hypocalcemia. He is aware that i f he is unable to afford his insulin medications that he may be readmitted somewhere else and it may lead to sequelae that may be permanent if he develops DKA or severe HHS including coma and . De spite above, he wanted to leave against medical advice and hence prescriptions that he mentioned that he took prior to being admitted such as 50 units of insulin in a.m. and 18 units of Lantus q.p.m. wa s prescribed at his preferred pharmacy in [facility]. Oral calcium supplementation has a lso been added as dictated above. He had been advised to stay to complete his expedited insurance application as discussed. He had bee n made aware that his insulin can be expensive and if not taken daily, he may end up in a hyperosmola r hyperglycemic state, DKA or end up in serious complications of uncontrolled diabetes including deat h. 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 He has also been made awar e that his serum calcium levels were low and was advised to stay at least until this was corrected. He has been made aware that this can lead to an irregular heart rhythm that may result in if un corrected. He, however, has refused this be done and opted for a suboptimal therapy orally. He was asked to see his PCP to recheck his calcium levels VITALIY and to follow up with a PCP immediately. He mentions that he follows up with Dr. Olvera in [facility]. He was advised to follow up with [facility] executive secretary social welfare/care coordinators regarding his status of his insurance applications and to take his medications as prescribed. He had been given an information by telephonic case manager of [facility] and hence we will defer. REVIEW OF SYSTEMS: The patient denied any current headaches, dizziness, fevers, chills, nausea, vomi ting, chest pain, shortness of breath, increased coughing or sputum production, abdominal pain, diarr hea, constipation pain and/or increased frequency in urination, myalgias, arthralgias, throat pain or new skin lesions. The rest of the 14-point review of systems is otherwise unremarkable. PHYSICAL EXAMINATION: The patient refused to be examined prior to his discharge. [id number]/[facility] #: [id number]
[2018-10-31] MEDS ORDERED: Insulin GLARGINE(*) 1 UNITS UNIT SUBCUT SCH (18:00)
[2018-11-04 14:24] LABS: ALP Bone 64.1 IU/L (12.1-42.7); ALP Intestine 4.9 IU/L (0.0-11.0); ALP Liver 1 326.9 IU/L (16.2-70.2); ALP Liver 1% 66.3 % (27.8-76.3); ALP Liver 2 97.1 IU/L (0.0-5.8); ALP Liver 2% 19.7 % (0.0-8.0); ALP Placental NotPresent; Alkaline Phosphatase 493 U/L (40 - 129)
== END 2018-10-31 09:45 | disposition left against medical advice (07) | DRG 638 ==
LOC: ED 18:04 → MED 21:58 → OBSVTOIN 10-30 16:21
PROVIDERS: ADMIT Internal Medicine; ATTEND Student in an Organized Health Care Education/Training Program
DX: E10.65 Type 1 diabetes mellitus with hyperglycemia (principal); K86.1 Other chronic pancreatitis; D75.1 Secondary polycythemia; E83.51 Hypocalcemia; E86.0 Dehydration; F12.90 Cannabis use, unspecified, uncomplicated; E78.1 Pure hyperglyceridemia; R74.8 Abnormal levels of other serum enzymes; F17.210 Nicotine dependence, cigarettes, uncomplicated; Z91.14 Patient's other noncompliance with medication regimen; Z83.3 Family history of diabetes mellitus; Z82.49 Family history of ischemic heart disease and other diseases of the circulatory system; Z79.899 Other long term (current) drug therapy; Z79.4 Long term (current) use of insulin
CPT/HCPCS: 36415; 80048; 80053; 81003; 81015; 82947; 82977; 83690; 83735; 84080; 84100; 84484; 85025; 85027; 99284; 99406; A9270-GY; J2270

== ENCOUNTER 2019-04-28 13:36 | Emergency (ER) | payer OTHER ==
[2019-04-28 13:42] VITALS: BP 133/89
[2019-04-28 15:31] LABS: Hematocrit 44 % (42-52); Mean Corpuscular HGB Conc 39 g/dL (31-36); Mean Corpuscular Hemoglobin 36 pg (27-31); Mean Corpuscular Volume 92 fL (80-94); Mean Platelet Volume 10.1 fL (7.4-10.4); Platelet Count 258 10^3/uL (150-450); Red Blood Count 4.78 10^6 /uL (4.18-5.48); Red Cell Distribution Width 12 % (10-15); White Blood Count 9.4 10^3/uL (3.5-10.8)
[2019-04-28 16:01] LABS: ABS Basophils 0.2 10^3/ul (0-0.2); ABS Eosinophils 0.2 10^3/ul (0-0.6); ABS Lymphocytes 2.6 10^3/ul (1.0-4.8); ABS Monocytes 0.9 10^3/ul (0-0.8); ABS Neutrophils 5.6 10^3/ul (1.5-7.7); Eosinophil % 1.9 %; Lymphocyte % 27.5 %; Nucleated Red Blood Cells % 0.2
[2019-04-28 16:42] LABS: Albumin 5.1 g/dL (3.2-5.2); Albumin/Globulin Ratio 1.5 (1-3); Alkaline Phosphatase 221 U/L (34-104); Amylase 10 U/L (29-103); C Reactive Protein 7.73 mg/L (<8.01); CO2 Carbon Dioxide 22 mmol/L (22-32); Calcium 9.2 mg/dL (8.6-10.3); Chloride 75 mmol/L (101-111); EGFR African American 80.3 (>60); EGFR Non-African American 66.4 (>60); Globulin 3.3 g/dL (2-4); Magnesium 3.5 mg/dL (1.9-2.7); Total Protein 8.4 g/dL (6.4-8.9)
[2019-04-28 16:54] LABS: Sodium 108 mmol/L (135-145)
[2019-04-28 16:55] LABS: Anion Gap 11 mmol/L (2-11)
[2019-04-28 17:10] LABS: ALT 99 U/L (7-52); BUN/Creatinine Ratio 15.8 (8-20); Blood Urea Nitrogen 19 mg/dL (6-24); Glucose 872 mg/dL (70-100)
== END 2019-04-28 16:08 | disposition left against medical advice (07) ==
LOC: ED 13:36
DX: Z53.21 Procedure and treatment not carried out due to patient leaving prior to being seen by health care provider (principal); R10.9 Unspecified abdominal pain; Z79.4 Long term (current) use of insulin; Z79.899 Other long term (current) drug therapy; Z88.6 Allergy status to analgesic agent; Z88.5 Allergy status to narcotic agent
CPT/HCPCS: 36415; 80053; 82150; 83605; 83690; 83735; 85025; 86140; 99282

== ENCOUNTER 2019-04-29 11:44 | Emergency (ER) | payer OTHER ==
[2019-04-29] MEDS ORDERED: NS 0.9% 1000 ML** 2,000 ML IV ONE (11:59)
--- NOTE | 2019-04-29 12:09 | ED ---
HPI Diabetic - HPI Summary HPI Summary: Pt is a 43 y/o M presenting to the ED for a chief complaint of a diabetic problem. Pt complains of nausea, abdominal pain radiating to the lower back, dizziness, and subjective fever. He rates the abdominal pain as 7-8/10. He was seen in the ED one day ago and had blood drawn, but left due to the long wait time. Pt was called for blood results and told to return. Pt has a PMHx of Type I diabetes mellitus. Pt is compliant with his medications and does not use an insulin pump. He takes Lantus two times daily and recently started on a new insulin medication taken four times daily. Denies cough, fever, or diarrhea. - History Of Current Complaint Chief Complaint: EDDiabeticProb Time Seen by Provider: 04/29/19 11:52 Hx Obtained From: Patient Onset/Duration: Gradual Onset, Lasting Days, Still Present Timing: Days Severity Initially: Moderate Severity Currently: Severe - Rates pain as 7/10 to 8/10. Aggravating: Nothing Alleviating: Nothing Associated Signs & Symptoms: Negative - Negative fever, or diarrhea. Positive lower back pain., Abdominal Pain Related History: Compliant, DM I, Insulin Requiring - Allergies/Home Medications Allergies/Adverse Reactions: Allergies Allergy/AdvReac Type Severity Reaction Status Date / Time acetaminophen [From Tylenol] AdvReac Intermediate GI Upset Verified 04/28/19 13: 42 codeine AdvReac Intermediate GI Upset Verified 04/28/19 13:42 ibuprofen AdvReac Intermediate GI Upset Verified 04/28/19 13:42 Home Medications: Home Medications Buprenorphine HCl/Naloxone HCl [Suboxone 12 mg-3 mg Sl Film] 1 each SL FILM DAILY 04/29/19 [History Confirmed 04/29/19] Calcium Carbonate/Vitamin D3 [Oyster Shell 500Mg-Vit D3 5Mcg] 1 each PO DAILY [History Confirmed 04/29/19] Cholecalciferol CAP/TAB(NF) [Vitamin D3 CAP/TAB (NF)] 5,000 unit PO WEEKLY 04/29 [History Confirmed 04/29/19] Insulin GLARGINE(*) [Lantus(*)] 60 units SUBCUT QAM 04/29/19 [History Confirmed 04/29/19] Insulin Lispro [Admelog Solostar] 0 unit SUBCUT QID 04/29/19 [History Confirmed 04/29/19] Pancrelipase (NF) [Creon (NF)] 36,000 units PO TID WITH MEALS 04/29/19 [History Confirmed 04/29/19] Sucralfate TAB* [Carafate*] 1 gm PO TID 04/29/19 [History Confirmed 04/29/19] PMH/Surg Hx/FS Hx/Imm Hx Previously Healthy: Yes Endocrine/Hematology History: Reports: Hx Diabetes - Type I, Other Endocrine/ Hematological Disorders - pancreatitis, h/o necrotysing Denies: Hx Thyroid Disease Cardiovascular History: Reports: Hx Hypercholesterolemia Denies: Hx Congestive Heart Failure, Hx Hypertension Respiratory History: Denies: Hx Asthma, Hx Chronic Obstructive Pulmonary Disease (COPD) GI History: Reports: Hx Gastroesophageal Reflux Disease, Other GI Disorders - Pancreatitis - chronic, splenic necrosis Denies: Hx Ulcer History: Denies: Hx Dialysis, Hx Renal Disease Sensory History: Denies: Hx Cataracts, Hx Contacts or Glasses, Hx Eye Injury, Hx Eye Prosthesis, Hx Glaucoma, Hx Legally Blind, Hx Macular Degeneration, Hx Vision Problem, Hx Deafness, Hx Hearing Aid, Hx Hearing Problem, Other Sensory Impairments Opthamlomology History: Denies: Hx Cataracts, Hx Contacts or Glasses, Hx Eye Injury, Hx Eye Prosthesis, Hx Glaucoma, Hx Legally Blind, Hx Macular Degeneration, Hx Vision Problem, Other Sensory Impairments Neurological History: Denies: Hx Dementia, Hx Developmental Delay, Hx Headaches, Hx Migraine, Hx Nerve Disease, Hx Seizures, Hx Spinal Cord Injury, Hx Transient Ischemic Attacks (TIA), Other Neuro Impairments/Disorders Psychiatric History: Reports: Hx Depression - Surgical History Surgery Procedure, Year, and Place: skin grafting at 18 months of age on forehead, PIECE OF PANCREAS REMOVED 08/2014 @ [place], [place] Hx Anesthesia Reactions: No - Immunization History Date of Tetanus Vaccine: utd Date of Influenza Vaccine: fall 2016 Infectious Disease History: No Infectious Disease History: Reports: Hx Clostridium Difficile Denies: Hx Hepatitis, Hx Human Immunodeficiency Virus (HIV), Hx of Known/ Suspected MRSA, Hx Shingles, Hx Tuberculosis, Traveled Outside the [place] in Last 30 Days - Family History Known Family History: Positive: Other - brother high triglycerides (>1,000) - Social History Occupation: Unemployed Lives: With Family Alcohol Use: None Hx Substance Use: Yes Substance Use Type: Reports: Marijuana Substance Use Comment - Amount & Last Used: Marijuana used occasionally to increase appetite and treat pain Hx Tobacco Use: Yes - trying to cut down/quit - 3 a day as of late Smoking Status (MU): Current Every Day Smoker Type: Cigarettes Amount Used/How Often: 1/2 ppd Have You Smoked in the Last Year: Yes Review of Systems Negative: Fever Positive: Cough Positive: Abdominal Pain - radiates to lower back. Negative: Diarrhea Neurological: Other - dizziness All Other Systems Reviewed And Are Negative: Yes Physical Exam - Summary Physical Exam Summary: VITAL SIGNS: Reviewed. GENERAL: Patient is a well-developed and nourished MALE who is lying comfortable in the stretcher. Patient is not in any acute respiratory distress. HEAD AND FACE: No signs of trauma. No ecchymosis, hematomas or skull depressions. No sinus tenderness. EYES: PERRLA, EOMI x 2, No injected conjunctiva, no nystagmus. EARS: Hearing grossly intact. Ear canals and tympanic membranes are within normal limits. MOUTH: Oropharynx within normal limits. Dry mucosa. NECK: Supple, trachea is midline, no adenopathy, no JVD, no carotid bruit, no c- spine tenderness, neck with full ROM. CHEST: Symmetric, no tenderness at palpation. LUNGS: Clear to auscultation bilaterally. No wheezing or crackles. CVS: Regular rate and rhythm, S1 and S2 present, no murmurs or gallops appreciated. ABDOMEN: Soft, non-tender. No signs of distention. No rebound, no guarding, and no masses palpated. Bowel sounds are normal. EXTREMITIES: FROM in all major joints, no edema, no cyanosis or clubbing. NEURO: Alert and oriented x 3. No acute neurological deficits. Speech is normal and follows commands. SKIN: Dry and warm. Triage Information Reviewed: Yes Vital Signs On Initial Exam: Initial Vitals Temp Pulse Resp BP Pulse Ox 97.7 F 84 18 125/86 94 04/29/19 11:47 04/29/19 11:47 04/29/19 11:47 04/29/19 11:47 04/29/19 11:47 Vital Signs Reviewed: Yes Diagnostics - Vital Signs Vital Signs Temp Pulse Resp BP Pulse Ox 04/29/19 11:47 97.7 F 84 18 125/86 94 - Laboratory Result Diagrams: 04/29/19 13:29 04/29/19 13:29 Lab Statement: Any lab studies that have been ordered have been reviewed, and results considered in the medical decision making process. - Radiology Chest X-ray Radiology Interpretation Completed By: Radiologist Summary of Radiographic Findings: Chest X-ray IMPRESSION: NO ACUTE CARDIOPULMONARY PROCESS BY RADIOGRAPH. Reviewed by ED physician. Diabetic Course/Dx - Course Assessment/Plan: This patient is a 43-year-old male who presents to the emergency room with a chief complaint of urinary symptoms, including polydipsia , polyuria, and polyphagia. The patient also reports some body aches and not feeling well. Patient has a past medical history significant for hypothyroidism , diabetes, dyslipidemia, heartburn, emphysema, and COPD. He reports that he came yesterday to the emergency department for approximately 3 hours and left. He was requested to return to the emergency department since the patients blood work was abnormal. Initially, we obtained 2 IV accesses and I ordered 2 L of IV fluids. The blood work was delayed for approximately an hour and 45 minutes by phlebotomy. Still awaiting blood work at this time. We will do a fingerstick. Blood work without any significant abnormality except for normocytic, chronic anemia with hemoglobin of 12.7 and hematocrit of 38. Glucose is 491, Sodium is 120, Chloride of 89, calcium is 7.9, AST is 73, ALT is 69, Alkaline Phosphate is 165. Urine shows specific gravity of 1.031, 1+ ketones, 3+ glucose. I ordered an additional liter of IV fluids. I was informed by the nurse that the patient refuses. I had a lengthy discussion with the patient about the benefits and risks of treatment of hyperglycemia however the patient refuses. The patient reports that he wants to go home. The patient will sign AGAINST MEDICAL ADVICE. I extensively discussed with the patient the benefits and risks of leaving AMA. I also discussed the alternatives to leaving AMA, however, the patient still insist to leave the hospital AMA. The patient is clinically sober, free from injury, appears to have intact insight and judgment and reason and in my opinion has the capacity to make decisions. Patient has full capacity and is cognitively intact. The patient presents with polydipsia, polyphagia, and polyuria, I have explained that I am concerned with DKA since patient has hx of DM and may represent diabetic coma and . The patient verbalizes understanding of my concerns. I have also explained the results of the labs and that they are abnormal. The primary nurse and the charge nurse also strongly recommended that the patient should not leave AMA. Patient understands the risks of leaving AMA, which includes but is not restricted to . Patient signed the AMA form. Patient was also advised to return to ED if he changes his mind or if the symptoms worsen or other symptoms appear. Patient understands and agrees. Again, I discussed all the findings and test results with the patient. Patient was instructed to return to the emergency room immediately if any of the symptoms return or worsen. Plan of care was discussed with the patient and understands and agrees. All questions were answered at patient satisfaction. There were no further complaints or concerns. Patient signed AMA and he was discharged AMA. - Diagnoses Provider Diagnoses: Hyperglycemia, Hyponatremia, Uncontrolled diabetes mellitus Discharge ED - Sign-Out/Discharge Documenting (check all that apply): Patient Departure Patient Received Moderate/Deep Sedation with Procedure: No - Discharge Plan Condition: Stable Disposition: AGAINST MEDICAL ADVICE Patient Education Materials: Diabetic Hyperglycemia (ED) Referrals: Azael Olvera MD [Primary Care Provider] - Additional Instructions: Follow up with PCP in 2-3 days. Return to ED for any new or worsening symptoms. - Billing Disposition and Condition Condition: STABLE Disposition: Against Medical Advice - Attestation Statements Document Initiated by Andra: Yes Documenting Scribe: Georgia Uribe Provider For Whom Andra is Documenting (Include Credential): Jae Eaton MD. Scribe Attestation: I, Georgia Uribe, scribed for Jae Eaton MD. on 04/30/19 at 0736. Scribe Documentation Reviewed: Yes Provider Attestation: The documentation as recorded by the jimenaibKelly mendez Kathryn O'Connor accurately reflects the service I personally performed and the decisions made by me, Jae Eaton MD. Status of Scribe Document: Viewed Consult Consult: At14:46, I spoke with Dr. Giron who recommended aggressively treating the hyperglycemia with Lantus subq, repeat blood work in 1 hour.
[2019-04-29 12:47] LABS: Urine Appearance Clear; Urine Bilirubin Negative (Negative); Urine Blood Negative (Negative); Urine Color Straw; Urine Glucose 3+(>=500 mg/dL) (Negative); Urine Ketones 1+ (Negative); Urine Nitrite Negative (Negative); Urine Protein Negative (Negative); Urine Specific Gravity 1.031 (1.010-1.030); Urine Urobilinogen Negative (Negative)
[2019-04-29 13:48] VITALS: BP 120/81
[2019-04-29 13:53] LABS: Hematocrit 38 % (42-52); Hemoglobin 12.7 g/dL (14.0-18.0); Mean Corpuscular HGB Conc 33 g/dL (31-36); Mean Corpuscular Hemoglobin 29 pg (27-31); Mean Corpuscular Volume 88 fL (80-94); Mean Platelet Volume 10.2 fL (7.4-10.4); Platelet Count 242 10^3/uL (150-450); Red Blood Count 4.31 10^6 /uL (4.18-5.48); Red Cell Distribution Width 13 % (10-15); White Blood Count 10.5 10^3/uL (3.5-10.8)
[2019-04-29 14:18] LABS: ABS Basophils 0.2 10^3/ul (0-0.2); ABS Eosinophils 0.1 10^3/ul (0-0.6); ABS Lymphocytes 2.2 10^3/ul (1.0-4.8); ABS Monocytes 0.8 10^3/ul (0-0.8); ABS Neutrophils 7.2 10^3/ul (1.5-7.7); Eosinophil % 1.3 %; Lymphocyte % 21.3 %; Nucleated Red Blood Cells % 0.2
[2019-04-29 14:30] LABS: Alcohol < 10 mg/dL (<10)
[2019-04-29 14:31] LABS: ALT 69 U/L (7-52); AST 73 U/L (13-39); Albumin 4.3 g/dL (3.2-5.2); Albumin/Globulin Ratio 1.8 (1-3); Alkaline Phosphatase 165 U/L (34-104); Anion Gap 6 mmol/L (2-11); BUN/Creatinine Ratio 15.4 (8-20); Blood Urea Nitrogen 12 mg/dL (6-24); C Reactive Protein 7.15 mg/L (<8.01); CO2 Carbon Dioxide 25 mmol/L (22-32); Calcium 7.9 mg/dL (8.6-10.3); Chloride 89 mmol/L (101-111); Creatine Kinase 104 U/L (10-223); EGFR African American 132.1 (>60); EGFR Non-African American 109.2 (>60); Globulin 2.4 g/dL (2-4); Glucose 491 mg/dL (70-100); Sodium 120 mmol/L (135-145); Total Protein 6.7 g/dL (6.4-8.9)
[2019-04-29] MEDS ORDERED: Insulin REGULAR(*) 1 UNITS UNIT IV PUSH ONE (14:41)
[2019-04-29] MEDS ORDERED: Insulin GLARGINE(*) 1 UNITS UNIT SUBCUT ONE (14:47)
[2019-04-29] MEDS ORDERED: NS 0.9% 1000 ML** 1,000 ML IV ONE (15:51)
== END 2019-04-29 16:45 | disposition left against medical advice (07) ==
LOC: ED 11:44
DX: E10.65 Type 1 diabetes mellitus with hyperglycemia (principal); E87.1 Hypo-osmolality and hyponatremia; E78.00 Pure hypercholesterolemia, unspecified; K21.9 Gastro-esophageal reflux disease without esophagitis; F32.9 Major depressive disorder, single episode, unspecified; Z79.4 Long term (current) use of insulin; Z79.899 Other long term (current) drug therapy; Z88.6 Allergy status to analgesic agent; Z88.5 Allergy status to narcotic agent
CPT/HCPCS: 36415; 71045; 80053; 80320; 81003; 82550; 82803; 83605; 85025; 86140; 96360; 96361; 99283; G0480

== ENCOUNTER 2019-05-04 17:45 | Emergency (ER) | payer OTHER ==
--- OUTSIDE RECORDS SUMMARY | 2019-05-04 18:19 | XMS REPORT | Continuity of Care Document ---
:1975 External Reference #:[id number] Author Name Azael Olvera MD (transmitted by agent of provider Kisha Zepeda) Address [address] [facility] [place] [address] Care Team Providers Name Role Phone [facility] - Care Team Information [facility] Problems Active Problems Provider Date Disorder of spleen Azael Olvera MD Onset: 03/08/2018 Type II diabetes mellitus uncontrolled Azael Olvera MD Onset: 03/08/2018 Pure hyperglyceridemia Azael Olvera MD Onset: 03/08/2018 Other chronic pancreatitis Azael Olvera MD Onset: 03/08/2018 Tobacco user Azael Olvera MD Onset: 03/08/2018 Mood disorder Azael Olvera MD Onset: 03/08/2018 Heartburn Azael Olvera MD Onset: 04/24/2018 Nausea and vomiting Azael Olvera MD Onset: 04/24/2018 On examination - rebound - right hypochondrium Azael Olvera MD Onset: 2018 High enzyme level in serum Azael Olvera MD Onset: 12/11/2018 Type 1 diabetes mellitus uncontrolled Azael Olvera MD Onset: 12/11/2018 Nondependent cannabis abuse, continuous Azael Olvera MD Onset: 10/02/2018 Chronic pancreatitis Azael Olvera MD Onset: 10/02/2018 Intermittent explosive disorder Azael Olvera MD Onset: 06/20/2018 Recurrent major depressive episodes Azael Olvera MD Onset: 06/20/2018 Social History Type Date Description Comments Sex Unknown Tobacco Use Start: Unknown Light tobacco smoker (10 or fewer cigarettes/day) Smoking Status Reviewed: 04/30/19 Light tobacco smoker (10 or fewer cigarettes/day) ETOH Use Denies alcohol use Tobacco Use Start: Unknown Light tobacco smoker (10 or fewer cigarettes/day) Recreational Drug Use Regularly uses for pain relief Marijuana Exercise Type/Frequency Exercises regularly walk daily, 3-4 hours Allergies, Adverse Reactions, Alerts Description No Known Drug Allergies Medications Active Medications SIG Qnty Indications Ordering Date Provider True Metrix Blood testing blood 100units E11.9 Azael Olvera MD 04/30/2019 Glucosetest Strips glucose four times a day for diabetes Strips mellitus Gabapentin 1 by mouth three 90caps E11.9 Azael Olvera MD 04/30/2019 300mg times a day Capsules Nicotrol use every 2 hours 168units F17.210 Azael Olvera MD 04/30/2019 10mg as needed for Inhaler nicotine cravings. Lantus Solostar 60 units in am 25 30ml Azael Olvera MD 04/04/2019 units in pm can be 100Unit/ML Solution substituted with Pen-Inject what insurance will cover mdd 80 units. Admelog inject 4 x per day 10ml Azael Olvera MD 03/18/2019 100Unit/ML per sliding scale Solution Antibiotic-Unspecif has 2-3 days left Azael Olvera MD 12/11/2018 ied of course Creon take 1 pill with 90caps K86.0 Azael Olvera MD 12/11/[id number] each meal Caps [facility] [place] Gemfibrozil 1 tab twice a day 60tabs K86.0 Azael Olvera MD 12/11/2018 600mg Tablets True Metrix Blood testing blood 100units Rodrigo Jade MD 10/02/2018 Glucosetest Strips glucose four times a day for diabetes Strips mellitus Freestyle place device on 3units Rodrigo Jade MD 06/06/2018 Karla/Sensor/Flash skin every 10 days; Monitoring System use with reader every 8 hours Misc Freestyle use every 8 hours 1units Rodrigo Jade MD 06/06/2018 Karla/Stover/Flash with sensor Monitoring System Device True Metrix Go For Type 1 Diabetes 1units E11.65 Azael Olvera MD 05/30/2018 Blood Glucose Meter Mellitus, for blood glucose monitoring w/Device Kit 4 times a day Lancets 28G use with 100units Rodrigo Jade MD 04/24/2018 28G glucometer, check Misc bs 3-4 times daily Pen [place] 1 needle twice a 100units Rodrigo Jade MD 03/14/2018 32G X 6 day mm Misc Lancets For use with your 100units E11.65 Azael Olvera MD 03/08/2018 30G Misc glucometer Ursodiol take 1 capsule by Unknown 300mg mouth 3 times per Capsules day Carafate take 1 tablet by Unknown 1gm mouth 3 times a day Tablets Vitamin D3 Maximum 1 by mouth weekly Unknown Strength 5000Unit Capsules Oyster Calcium 1 tab by mouth once Unknown a day 500mg Tablets Suboxone Unknown 8-2mg Film Immunizations Description No Information Available Vital Signs Date Vital Result Comment 04/30/2019 3:10pm Height 71 inches 5'11" Weight 183.00 lb Heart Rate 76 /min BP Systolic 120 mmHg BP Diastolic 83 mmHg O2 % BldC Oximetry 97 % BMI (Body Mass Index) 25.5 kg/m2 12/11/2018 2:23pm Weight 180.00 lb Heart Rate 68 /min BP Systolic 130 mmHg BP Diastolic 84 mmHg Respiratory Rate 16 /min Body Temperature 97.8 F Pain Level 9 O2 % BldC Oximetry 98 % Results Test Date Facility Test Result H/L Range Note Laboratory test [facility] Point of > 444 Critical 70-100 1 finding [address] Care Glucose mg/[place] [address] [phone] Venous Blood [facility] Venous Blood 7.36 Normal 7.32-7.43 Gas [address] [place] [address] [phone] Venous Pco2 55 mmHg High 41-51 Venous Po2 < 38.0 mmHg Normal 35-45 Venous O2 Saturation 70.3 % Normal 70-80 Venous Blood Base Excess 4.2 mmol/L High 0.0-4.0 2 Venous Bicarbonate Hco3 27.3 mmol/L Normal 24-28 CBC Auto 04/29/2019 [facility] White Blood 10.5 10^3/uL Normal 3.5-10.[address] [place] [address] [phone] Red Blood Count 4.31 10^6/uL Normal 4.18-5.48 Hemoglobin 12.7 g/dL Low 14.0-18.0 3 Hematocrit 38 % Low 42-52 Mean Corpuscular Volume 88 fL Normal 80-94 Mean Corpuscular Hemoglobin 29 pg Normal 27-31 4 Mean Corpuscular HGB Conc 33 g/dL Normal 31-36 5 Red Cell Distribution Width 13 % Normal 10-15 Platelet Count 242 10^3/uL Normal 150-450 Mean Platelet Volume 10.2 fL Normal 7.4-10.4 Abs Neutrophils 7.2 10^3/uL Normal 1.5-7.7 Abs Lymphocytes 2.2 10^3/uL Normal 1.0-4.8 Abs Monocytes 0.8 10^3/uL Normal 0-0.8 Abs Eosinophils 0.1 10^3/uL Normal 0-0.6 Abs Basophils 0.2 10^3/uL Normal 0-0.2 Abs Nucleated RBC 0.0 10^3/uL Granulocyte % 68.3 % Lymphocyte % 21.3 % Monocyte % 7.6 % Eosinophil % 1.3 % Basophil % 1.5 % Nucleated Red Blood Cells % 0.2 Laboratory test 04/29/2019 [facility] Lactic Acid 0.9 mmol/L Normal 0.5-2.0 6 finding [address] [place] [address] [phone] Alcohol < 10 mg/dL Normal <10 Comp Metabolic Panel 04/29/2019 [facility] Sodium 120 mmol/L Low 135-145 [address] [place] [address] [phone] Potassium TNP mmol/L 3.5-5.0 Chloride 89 mmol/L Low 101-111 Co2 Carbon Dioxide 25 mmol/L Normal 22-32 Anion Gap 6 mmol/L Normal 2-11 Glucose 491 mg/dL High 70-100 Blood Urea Nitrogen 12 mg/dL Normal 6-24 Creatinine 0.78 mg/dL Normal 0.67-1.17 BUN/Creatinine Ratio 15.4 Normal 8-20 Calcium 7.9 mg/dL Low 8.6-10.3 Total Protein 6.7 g/dL Normal 6.4-8.9 Albumin 4.3 g/dL Normal 3.2-5.2 Globulin 2.4 g/dL Normal 2-4 Albumin/Globulin Ratio 1.8 Normal 1-3 Total Bilirubin 0.60 mg/dL Normal 0.2-1.0 Alkaline Phosphatase 165 U/L High 34-104 Alt 69 U/L High 7-52 Ast 73 U/L High 13-39 Egfr Non- 109.2 >60 Egfr 132.1 >60 7 Laboratory test 04/29/2019 [facility] Creatine 104 U/L Normal 10-[address] Kinase(CK) [place] [address] [phone] C Reactive Protein 7.15 mg/L Normal <8.01 Urinalysis Profile 04/29/2019 [facility] Urine Color Straw [address] [place] [address] [phone] Urine Appearance Clear Urine Specific [place] 1.031 High 1.010-1.030 Urine pH 6.0 Normal 5-9 Urine Urobilinogen Negative Negative Urine Ketones 1+ Abnormal Negative Urine Protein Negative Negative Urine Leukocytes Negative Negative Urine Blood Negative Negative Urine Nitrite Negative Negative Urine Bilirubin Negative Negative Urine Glucose 3+(>=500 mg/dL) Abnormal Negative CBC Auto 04/28/2019 [facility] White Blood 9.4 10^3/uL Normal 3.5-10.[address] [place] [address] [phone] Red Blood Count 4.78 10^6/uL Normal 4.18-5.48 Hemoglobin 17.0 g/dL Normal 14.0-18.0 Hematocrit 44 % Normal 42-52 Mean Corpuscular Volume 92 fL Normal 80-94 Mean Corpuscular Hemoglobin 36 pg High 27-31 Mean Corpuscular HGB Conc 39 g/dL High 31-36 Red Cell Distribution Width 12 % Normal 10-15 Platelet Count 258 10^3/uL Normal 150-450 Mean Platelet Volume 10.1 fL Normal 7.4-10.4 Abs Neutrophils 5.6 10^3/uL Normal 1.5-7.7 Abs Lymphocytes 2.6 10^3/uL Normal 1.0-4.8 Abs Monocytes 0.9 10^3/uL High 0-0.8 Abs Eosinophils 0.2 10^3/uL Normal 0-0.6 Abs Basophils 0.2 10^3/uL Normal 0-0.2 Abs Nucleated RBC 0.0 10^3/uL Granulocyte % 59.5 % Lymphocyte % 27.5 % Monocyte % 9.3 % Eosinophil % 1.9 % Basophil % 1.8 % Nucleated Red Blood Cells % 0.2 Laboratory test 04/28/2019 [facility] Lactic Acid 1.8 mmol/L Normal 0.5-2.[address] [place] [address] [phone] Comp Metabolic 04/28/2019 [facility] Chloride 75 mmol/L Low 101-[address] [place] [address] [phone] Co2 Carbon Dioxide 22 mmol/L Normal 22-32 Creatinine 1.20 mg/dL High 0.67-1.17 Calcium 9.2 mg/dL Normal 8.6-10.3 Total Protein 8.4 g/dL Normal 6.4-8.9 Albumin 5.1 g/dL Normal 3.2-5.2 Globulin 3.3 g/dL Normal 2-4 Albumin/Globulin Ratio 1.5 Normal 1-3 Total Bilirubin 0.60 mg/dL Normal 0.2-1.0 Alkaline Phosphatase 221 U/L High 34-104 Egfr Non- 66.4 >60 Egfr 80.3 >60 10 Sodium 108 mmol/L Critical low 135-145 11 Potassium TNP mmol/L 3.5-5.0 Anion Gap 11 mmol/L Normal 2-11 Glucose 872 mg/dL Critical high 70-100 12 Blood Urea Nitrogen 19 mg/dL Normal 6-24 BUN/Creatinine Ratio 15.8 Normal 8-20 Alt 99 U/L High 7-52 Ast TNP U/L 13-39 Laboratory test 04/28/2019 [facility] Magnesium 3.5 mg/dL High 1.9-2.7 [address] [place] [address] [phone] Amylase 10 U/L Low 29-103 Lipase 91 U/L High 11.0-82.0 C Reactive Protein 7.73 mg/L Normal <8.01 Laboratory test 12/04/2018 [facility] Hemoglobin A1c 14.2 % High 4.0-5.[address] (Glyco HGB) [place] [address] [phone] Glucose 310 mg/dL High 70-100 1 Evp Managing Director: [id number] 2 Reference ranges based on room air. 3 Result corrected for lipemia 4 Result corrected for lipemia 5 Result corrected for lipemia 6 [facility] Severe Sepsis and Septic Shock Management Bundle Measure requires all lactic acids initially measuring >2.0 mmol/L be repeated. 7 Because ethnic data is not always readily available, this report includes an eGFR for both -Americans and non- Americans. The National Kidney Disease Education Program (NKDEP) does not endorse the use of the MDRD equation for patients that are not between the ages of 18 and 70, are , have extremes of body size, muscle mass, or nutritional status, or are non- or non-. According to the National Kidney Foundation, irrespective of diagnosis, the stage of the disease is based on the level of kidney function: Stage Description GFR(mL/min/1.73 m(2)) 1 Kidney damage with normal or decreased GFR 90 2 Kidney damage with mild decrease in GFR 60-89 3 Moderate decrease in GFR 30-59 4 Severe decrease in GFR 15-29 5 Kidney failure <15 (or dialysis) 8 Urine Source: Clean Catch 9 [facility] Severe Sepsis and Septic Shock Management Bundle Measure requires all lactic acids initially measuring >2.0 mmol/L be repeated. 10 Because ethnic data is not always readily available, this report includes an eGFR for both -Americans and non- Americans. The National Kidney Disease Education Program (NKDEP) does not endorse the use of the MDRD equation for patients that are not between the ages of 18 and 70, are , have extremes of body size, muscle mass, or nutritional status, or are non- or non-. According to the National Kidney Foundation, irrespective of diagnosis, the stage of the disease is based on the level of kidney function: Stage Description GFR(mL/min/1.73 m(2)) 1 Kidney damage with normal or decreased GFR 90 2 Kidney damage with mild decrease in GFR 60-89 3 Moderate decrease in GFR 30-59 4 Severe decrease in GFR 15-29 5 Kidney failure <15 (or dialysis) 11 Verbal to [id number] by [id number] at 1650 on 04/28/19. Results read back accurately 12 Verbal to [id number] by [id number] at 1708 on 04/28/19. Results read back accurately 13 [MG] affected by ICTERUS 14 Therapeutic target for the treatment of diabetes mellitus patients is <7% HBA1C, and in selective patients <6.0%. Please refer to [employer] diabetic care guidelines for further information. 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 Office Visit 12/04/2018 DO Not Use Care Azael Olvera MD E10.65 Type 1 diabetes 2:20p Connections mellitus with Clinic[facility] hyperglycemia Office Visit 10/31/2018 [facility] Jovany Valdivia E10.65 Type 1 diabetes 11:10a karri Koch MD mellitus with Hospitalists hyperglycemia D75.1 Secondary polycythemia Z72.0 Tobacco use E83.51 Hypocalcemia R74.8 Abnormal levels of other serum enzymes Office Visit 10/29/2018 [facility] Jaziel Neal E10.65 Type 1 diabetes 11:09a karri Koch, mellitus with Hospitalists MLinda,FACP hyperglycemia D75.1 Secondary polycythemia R74.8 Abnormal levels of other serum enzymes Assessments Date Code Description Provider 04/30/2019 F17.210 Nicotine dependence, cigarettes, Azael Olvera MD uncomplicated 04/30/2019 E11.9 Type 2 diabetes mellitus without Azael Olvera MD complications 12/11/2018 E10.65 Type 1 diabetes mellitus with Azael Olvera MD hyperglycemia 12/11/2018 R74.8 Abnormal levels of other serum Azael Olvera MD enzymes 12/11/2018 R10.811 Right upper quadrant abdominal Azael Olvera MD tenderness 12/11/2018 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 Azael Olvera MD 12/04/2018 E10.65 Type 1 diabetes mellitus with Azael Olvera MD hyperglycemia 10/31/2018 E10.65 Type 1 diabetes mellitus with Jovany Dubois MD hyperglycemia 10/31/2018 D75.1 Secondary polycythemia Jovany Dubois MD 10/31/2018 Z72.0 Tobacco use Jovany Dubois MD 10/31/2018 E83.51 Hypocalcemia Jovany Dubois MD 10/31/2018 R74.8 Abnormal levels of other serum Jovany Dubois MD enzymes 10/29/2018 E10.65 Type 1 diabetes mellitus with [facility] hyperglycemia 10/29/2018 D75.1 Secondary polycythemia Jaziel Glass M.D.,FACP 10/29/2018 R74.8 Abnormal levels of other serum Jaziel Glass M.D.,FACP enzymes Plan of Treatment Future Appointment(s):05/28/2019 3:00 pm - Azael Olvera MD at [facility] Internal Medicine - [address]/30/2019 - Azael Olvera MDF17.210 Nicotine dependence, cigarettes, uncomplicatedNew Medication:Nicotrol 10 mg - use every 2 hours as needed for nicotine cravings.E11.9 Type 2 diabetes mellitus without complicationsNew Medication:True Metrix Blood Glucosetest Strips - testing blood glucose four times a day for diabetes mellitusGabapentin 300 mg - 1 by mouth three times a dayComments:Increase PM from 18U to 25U. Continue AM [address] Thomas back on high fat foods like peanuts. Increase the Sliding scale by 2U for each level above 150 from your baseline. Take the gemfibrozil! RECORD your sugars so that you will qualify for the continuous glucose monitor.Follow up:4 weeks. Functional Status Description No Information Available Mental Status Description No Information Available Referrals Description No Information Available
[2019-05-04 20:05] LABS: ABS Eosinophils 0.1 10^3/ul (0-0.6); ABS Monocytes 1.3 10^3/ul (0-0.8); ABS Neutrophils 8.9 10^3/ul (1.5-7.7); ABS Nucleated RBC 0.1 10^3/ul; Eosinophil % 0.7 %; Hematocrit 50 % (42-52); Hemoglobin 17.3 g/dL (14.0-18.0); Lymphocyte % 8.8 %; Mean Corpuscular HGB Conc 35 g/dL (31-36); Mean Corpuscular Hemoglobin 32 pg (27-31); Mean Corpuscular Volume 92 fL (80-94); Nucleated Red Blood Cells % 0.4; Red Cell Distribution Width 14 % (10-15); White Blood Count 11.3 10^3/uL (3.5-10.8)
[2019-05-04 20:08] LABS: Albumin 4.1 g/dL (3.2-5.2); CO2 Carbon Dioxide 22 mmol/L (22-32); Calcium 8.5 mg/dL (8.6-10.3); Chloride 88 mmol/L (101-111); Sodium 121 mmol/L (135-145)
[2019-05-04 20:14] LABS: Albumin/Globulin Ratio 1.2 (1-3); Alkaline Phosphatase 178 U/L (34-104); BUN/Creatinine Ratio 20.2 (8-20); Blood Urea Nitrogen 18 mg/dL (6-24); C Reactive Protein 135.99 mg/L (<8.01); EGFR African American 113.4 (>60); EGFR Non-African American 93.7 (>60); Globulin 3.3 g/dL (2-4); Glucose 490 mg/dL (70-100); Total Protein 7.4 g/dL (6.4-8.9)
[2019-05-04 20:15] LABS: Anion Gap 11 mmol/L (2-11)
[2019-05-04 20:28] LABS: ALT 47 U/L (7-52)
[2019-05-04 20:31] LABS: Platelet Count 214 10^3/uL (150-450)
[2019-05-04] MEDS ORDERED: NS 0.9% 1000 ML** 1,000 ML IV ONE ×2 (21:06→21:18)
[2019-05-04] MEDS ORDERED: Insulin REGULAR(*) 1 UNITS UNIT SUBCUT ONE (21:18)
--- NOTE | 2019-05-04 22:02 | ED ---
HPI Diabetic - HPI Summary HPI Summary: This patient is a 43 year old M [facility] accompanied by a female metal numerical control programmer with a chief complaint of high blood sugar levels since 6 days ago. He was seen in the ED 2 times prior to this visit. 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 He has FHx of diabetes. He states he is not unwell for several days now has epigastric abdominal pain associated with nausea. The patient rates the pain 9/10 in severity. Symptoms aggravated by nothing. Symptoms alleviated by nothing. Patient reports ABD pain, fatigue, vomiting, feels like he is on "fire." Patient denies diarrhea, cough. - History Of Current Complaint Chief Complaint: EDDiabeticProb Time Seen by Provider: 05/04/19 21:05 Hx Obtained From: Patient, Other: - female metal numerical control programmer Onset/Duration: Sudden Onset, Lasting Days - 6 Timing: Constant Aggravating: Nothing Alleviating: Nothing Associated Signs & Symptoms: Abdominal Pain, Vomiting - Allergies/Home Medications Allergies/Adverse Reactions: Allergies Allergy/AdvReac Type Severity Reaction Status Date / Time acetaminophen [From Tylenol] AdvReac Intermediate GI Upset Verified 05/04/19 18: 03 codeine AdvReac Intermediate GI Upset Verified 05/04/19 18:03 ibuprofen AdvReac Intermediate GI Upset Verified 05/04/19 18:03 PMH/Surg Hx/FS Hx/Imm Hx Previously Healthy: No Endocrine/Hematology History: Reports: Hx Diabetes - Type I, Other Endocrine/ Hematological Disorders - pancreatitis, h/o necrotysing Denies: Hx Thyroid Disease Cardiovascular History: Reports: Hx Hypercholesterolemia Denies: Hx Congestive Heart Failure, Hx Hypertension Respiratory History: Denies: Hx Asthma, Hx Chronic Obstructive Pulmonary Disease (COPD) GI History: Reports: Hx Gastroesophageal Reflux Disease, Other GI Disorders - Pancreatitis - chronic, splenic necrosis Denies: Hx Ulcer History: Denies: Hx Dialysis, Hx Renal Disease Sensory History: Denies: Hx Cataracts, Hx Contacts or Glasses, Hx Eye Injury, Hx Eye Prosthesis, Hx Glaucoma, Hx Legally Blind, Hx Macular Degeneration, Hx Vision Problem, Hx Deafness, Hx Hearing Aid, Hx Hearing Problem, Other Sensory Impairments Opthamlomology History: Denies: Hx Cataracts, Hx Contacts or Glasses, Hx Eye Injury, Hx Eye Prosthesis, Hx Glaucoma, Hx Legally Blind, Hx Macular Degeneration, Hx Vision Problem, Other Sensory Impairments Neurological History: Denies: Hx Dementia, Hx Developmental Delay, Hx Headaches, Hx Migraine, Hx Nerve Disease, Hx Seizures, Hx Spinal Cord Injury, Hx Transient Ischemic Attacks (TIA), Other Neuro Impairments/Disorders Psychiatric History: Reports: Hx Depression - Surgical History Surgical History: Yes Surgery Procedure, Year, and Place: skin grafting at 18 months of age on forehead, PIECE OF PANCREAS REMOVED 08/2014 @ [place], [place] Hx Anesthesia Reactions: No - Immunization History Date of Tetanus Vaccine: utd Date of Influenza Vaccine: fall 2016 Infectious Disease History: Yes Infectious Disease History: Reports: Hx Clostridium Difficile Denies: Hx Hepatitis, Hx Human Immunodeficiency Virus (HIV), Hx of Known/ Suspected MRSA, Hx Shingles, Hx Tuberculosis, Traveled Outside the US in Last 30 Days - Family History Known Family History: Positive: Other - brother high triglycerides (>1,000) - Social History Alcohol Use: None Hx Substance Use: Yes Substance Use Type: Reports: Marijuana Substance Use Comment - Amount & Last Used: Marijuana used occasionally to increase appetite and treat pain Hx Tobacco Use: Yes - trying to cut down/quit - 3 a day as of late Smoking Status (MU): Light Every Day Tobacco Smoker Type: Cigarettes Amount Used/How Often: 1/2 ppd Have You Smoked in the Last Year: Yes Review of Systems Constitutional: Other - positive - pt feels like he is on "fire." Positive: Fatigue Negative: Cough Gastrointestinal: Other - positive - high blood sugar levels Positive: Abdominal Pain, Vomiting. Negative: Diarrhea All Other Systems Reviewed And Are Negative: Yes Physical Exam - Summary Physical Exam Summary: Constitutional: Mildly Ill-appearing. Alert. (-) Distressed Skin: Warm, Dry HENT: Normocephalic; Atraumatic. mucous membrane dry Eyes: Conjunctiva normal Neck: Musculoskeletal ROM normal neck. (-) JVD, (-) Stridor, (-) Nuchal rigidity Cardio: Rhythm regular, rate normal, Heart sounds normal; Intact distal pulses; Radial pulses are 2+ and symmetric. (-) Murmur Pulmonary/Chest wall: Effort normal. (-) Respiratory distress, (-) Wheezes, (-) Rales Abd: Soft, midline old scar, mild diffuse tenderness, no guarding (-) Distension , (-) Rebound Musculoskeletal: (-) Edema Lymph: (-) Cervical adenopathy Neuro: Alert, Oriented x3 Psych: Mood and affect Normal Triage Information Reviewed: Yes Vital Signs On Initial Exam: Initial Vitals Temp Pulse Resp BP Pulse Ox 98.2 F 89 16 105/87 97 05/04/19 17:58 05/04/19 17:58 05/04/19 17:58 05/04/19 17:58 05/04/19 17:58 Vital Signs Reviewed: Yes Diagnostics - Vital Signs Vital Signs Temp Pulse Resp BP Pulse Ox 05/04/19 20:20 97.5 F 88 16 109/70 98 05/04/19 17:58 98.2 F 89 16 105/87 97 - Laboratory Lab Results: Lab Results 05/04/19 05/04/19 05/04/19 Range/Units 18:03 19:47 19:47 WBC 11.3 H (3.5-10.8) 10^3/uL RBC 5.40 (4.18-5.48) 10^6 /uL Hgb 17.3 (14.0-18.0) g/dL Hct 50 (42-52) % MCV 92 (80-94) fL MCH 32 H (27-31) pg MCHC 35 (31-36) g/dL RDW 14 (10-15) % Plt Count 214 (150-450) 10^3/uL MPV 10.0 (7.4-10.4) fL Neut % (Auto) 78.4 % Lymph % (Auto) 8.8 % [place] % (Auto) 11.7 % Eos % (Auto) 0.7 % Baso % (Auto) 0.4 % Absolute Neuts (auto) 8.9 H (1.5-7.7) 10^3/ul Absolute Lymphs (auto) 1.0 (1.0-4.8) 10^3/ul Absolute Monos (auto) 1.3 H (0-0.8) 10^3/ul Absolute Eos (auto) 0.1 (0-0.6) 10^3/ul Absolute Basos (auto) 0.0 (0-0.2) 10^3/ul Absolute Nucleated RBC 0.1 10^3/ul Nucleated RBC % 0.4 Sodium 121 L (135-145) mmol/L Potassium TNP Chloride 88 L (101-111) mmol/L Carbon Dioxide 22 (22-32) mmol/L Anion Gap 11 (2-11) mmol/L BUN 18 (6-24) mg/dL Creatinine 0.89 (0.67-1.17) mg/dL Est GFR ( Amer) 113.4 (>60) Est GFR (Non-Af Amer) 93.7 (>60) BUN/Creatinine Ratio 20.2 H (8-20) Glucose 490 H (70-100) mg/dL POC Glucose (mg/dL) 276 H (70-100) mg/dL Lactic Acid (0.5-2.0) mmol/L Calcium 8.5 L (8.6-10.3) mg/dL Total Bilirubin 0.60 (0.2-1.0) mg/dL AST TNP ALT 47 (7-52) U/L Alkaline Phosphatase 178 H (34-104) U/L C-Reactive Protein 135.99 H (<8.01) mg/L Total Protein 7.4 (6.4-8.9) g/dL Albumin 4.1 (3.2-5.2) g/dL Globulin 3.3 (2-4) g/dL Albumin/Globulin Ratio 1.2 (1-3) Lipase 79 (11.0-82.0) U/L TSH Pending Free T4 Pending 05/04/19 05/04/19 Range/Units 19:47 21:07 WBC (3.5-10.8) 10^3/uL RBC (4.18-5.48) 10^6 /uL Hgb (14.0-18.0) g/dL Hct (42-52) % MCV (80-94) fL MCH (27-31) pg MCHC (31-36) g/dL RDW (10-15) % Plt Count (150-450) 10^3/uL MPV (7.4-10.4) fL Neut % (Auto) % Lymph % (Auto) % Centre % (Auto) % Eos % (Auto) % Baso % (Auto) % Absolute Neuts (auto) (1.5-7.7) 10^3/ul Absolute Lymphs (auto) (1.0-4.8) 10^3/ul Absolute Monos (auto) (0-0.8) 10^3/ul Absolute Eos (auto) (0-0.6) 10^3/ul Absolute Basos (auto) (0-0.2) 10^3/ul Absolute Nucleated RBC 10^3/ul Nucleated RBC % Sodium (135-145) mmol/L Potassium Chloride (101-111) mmol/L Carbon Dioxide (22-32) mmol/L Anion Gap (2-11) mmol/L BUN (6-24) mg/dL Creatinine (0.67-1.17) mg/dL Est GFR ( Amer) (>60) Est GFR (Non-Af Amer) (>60) BUN/Creatinine Ratio (8-20) Glucose (70-100) mg/dL POC Glucose (mg/dL) > 444 H* (70-100) mg/dL Lactic Acid 0.7 (0.5-2.0) mmol/L Calcium (8.6-10.3) mg/dL Total Bilirubin (0.2-1.0) mg/dL AST ALT (7-52) U/L Alkaline Phosphatase (34-104) U/L C-Reactive Protein (<8.01) mg/L Total Protein (6.4-8.9) g/dL Albumin (3.2-5.2) g/dL Globulin (2-4) g/dL Albumin/Globulin Ratio (1-3) Lipase (11.0-82.0) U/L TSH Free T4 Result Diagrams: 05/04/19 19:47 05/04/19 21:35 Lab Statement: Any lab studies that have been ordered have been reviewed, and results considered in the medical decision making process. - CT Abd/Pel CT Interpretation Completed By: Radiologist Summary of CT Findings: IMPRESSION: 1. 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 a cystic fluid collection which may be slightly decreased in size currently. measuring 7 cm maximum dimension and previously measured 8 cm. 2. There may be mild fluid in the lesser sac, cannot exclude acute. pancreatitis. 3. There may be mild wall thickening in the body and antrum of the stomach. along the lesser sac, cannot exclude mild nonspecific gastritis. 4. Stable mild mesenteric lymphadenopathy at the root of the mesentery. These findings were reviewed by Dr. Calderon. Re-Evaluation - Re-Evaluation First Eval Re-Evaluation Time: 01:08 Change: Improved - BG down to 270, tolerating PO. Got 3 L IVF. Feeling better. Discussed with patient findings of possible pancreatitis on CT given that he has had multiple bouts. Has in the past, a normal place is not excluded this. Patient states that he feels improved, does not want to stay for IV fluids and pain medication and thinks he can go home. He tolerate by mouth here, appears much improved and will return for worsening symptoms. Diabetic Course/Dx - Course Course Of Treatment: 43 y/o male with a history of alcoholic pancreatitis status post necrotizing pancreatitis and surgical removal of the majority of his pancreas, c/b IDDM, who presents with nausea, vomiting and dehydration w hyperglycemia. - PE mildly ill-appearing male, dry MM.. Blood sugar in the 400s, we'll check labs including a VBG to assess for DKA, give IV fluid and 10 of subcutaneous insulin. Will reassess. We'll also check a CT scan given history of pancreatitis - Diagnoses Provider Diagnoses: Pancreatitis, Hyperglycemia - Physician Notifications Instructed by Provider To: Other Discharge ED - Sign-Out/Discharge Documenting (check all that apply): Patient Departure - discharge Patient Received Moderate/Deep Sedation with Procedure: No - Discharge Plan Condition: Stable Disposition: HOME Patient Education Materials: Pancreatitis (ED), Diabetic Hyperglycemia (ED) Forms: *Work Release Referrals: Azael Olvera MD [Primary Care Provider] - 2 Days Additional Instructions: You were seen in the emergency department for high blood sugar. Your CT scan showed possible pancreatitis. Please continue drink lots of fluids, return for worsening pain, fevers, inability to eat or drink, or if you're concerned If any studies were not completed at the time of discharge you will be called with the relevant results. Please follow up with your primary care doctor in next 2-3 days and return to emergency department for worsening or concerning symptoms. It was a pleasure taking care of you today. - Billing Disposition and Condition Condition: STABLE Disposition: Home - Attestation Statements Document Initiated by Scribe: Yes Documenting Scribe: Sathish Smith Provider For Whom Andra is Documenting (Include Credential): Dr. Ekta Calderon MD Scribe Attestation: I, Sathish Smith, scribed for Dr. Ekta Calderon MD on 05/05/19 at 0639. Scribe Documentation Reviewed: Yes Provider Attestation: The documentation as recorded by the scribe, Sathish Smith accurately reflects the service I personally performed and the decisions made by me, Dr. Ekta Calderon MD Status of Scribe Document: Viewed
[2019-05-04 22:16] LABS: Potassium Redraw 5.3 mmol/L (3.5-5.0)
[2019-05-04] MEDS ORDERED: Iodixanol* (CONTRAST) 320 MG/ML 100 ML SDV IV ONE (22:18)
[2019-05-04 22:25] LABS: TSH (Thyroid Stimulating Horm) 2.27 mcIU/mL (0.34-5.60)
[2019-05-04 22:27] LABS: Free T4 1.34 ng/dL (0.61-1.12)
[2019-05-05] MEDS ORDERED: Insulin REGULAR(*) 1 UNITS UNIT SUBCUT ONE (00:11)
[2019-05-05] MEDS ORDERED: NS 0.9% 1000 ML** 1,000 ML IV ONE (00:11)
[2019-05-05] MEDS ORDERED: Haloperidol INJ IV/IM* 5 MG/ML AMP IV SLOW PU ONE (00:12)
[2019-05-05 01:25] VITALS: BP 132/81
[2019-05-05 01:41] LABS: Urine Appearance Clear; Urine Bilirubin Negative (Negative); Urine Blood Negative (Negative); Urine Color Straw; Urine Glucose 3+(>=500 mg/dL) (Negative); Urine Ketones Trace (Negative); Urine Nitrite Negative (Negative); Urine Protein Negative (Negative); Urine Specific Gravity 1.029 (1.010-1.030); Urine Urobilinogen Negative (Negative)
[2019-05-05 03:57] LABS: Triglycerides 2626 mg/dL
== END 2019-05-05 01:25 | disposition home or self-care (01) ==
LOC: ED 17:45
DX: E10.65 Type 1 diabetes mellitus with hyperglycemia (principal); K85.90 Acute pancreatitis without necrosis or infection, unspecified; E78.00 Pure hypercholesterolemia, unspecified; K21.9 Gastro-esophageal reflux disease without esophagitis; F17.210 Nicotine dependence, cigarettes, uncomplicated; Z88.6 Allergy status to analgesic agent; Z88.5 Allergy status to narcotic agent; Z79.4 Long term (current) use of insulin; Z79.899 Other long term (current) drug therapy
CPT/HCPCS: 36415; 74177; 80053; 81003; 82803; 82947; 83605; 83690; 84439; 84443; 84478; 85025; 86140; 96361; 96374; 99283; J1630; Q9967

== ENCOUNTER 2019-08-10 22:41 | Inpatient (IN) | payer OTHER ==
[2019-08-10] MEDS: NS 0.9% 1000 ML** 3,000 ML IV ONE ×2 (23:28→23:29)
[2019-08-10 23:44] LABS: Hemoglobin 16.7 g/dL (14.0-18.0)
[2019-08-10 23:45] LABS: Mean Corpuscular Hemoglobin 31 pg (27-31)
[2019-08-10 23:46] LABS: ABS Basophils 0.1 10^3/ul (0-0.2); ABS Eosinophils 0.1 10^3/ul (0-0.6); ABS Lymphocytes 1.9 10^3/ul (1.0-4.8); ABS Monocytes 0.8 10^3/ul (0-0.8); ABS Neutrophils 5.1 10^3/ul (1.5-7.7); ABS Nucleated RBC 0.1 10^3/ul; Eosinophil % 1.8 %; Hematocrit 50 % (42-52); Lymphocyte % 24.1 %; Mean Corpuscular HGB Conc 33 g/dL (31-36); Mean Corpuscular Volume 93 fL (80-94); Mean Platelet Volume 9.6 fL (7.4-10.4); Nucleated Red Blood Cells % 0.8; Platelet Count 261 10^3/uL (150-450); Red Blood Count 5.31 10^6 /uL (4.18-5.48); Red Cell Distribution Width 15 % (10-15)
--- NOTE | 2019-08-10 23:53 | ED ---
Complex/Multi-Sys Presentation - HPI Summary HPI Summary: Patient is a 44 y/o diabetic male presenting to [facility] with complaints of diffuse abdominal pain, N/V, dizziness, light-headedness, and BLE edema. CP and SOB are denied. He states that he has been having abdominal pain over the past week but experienced an exacerbation this evening, 08/10/19. He claims that he has been unable to keep any food down for the past few days. Patient reports that he administered 25 units of Lantus and 12 units of Humalog GOLD MARKER. Glucose measurement was attempted, but read "over range". PSHx of removal of a piece of his pancreas is reported. On triage, pain is rated 8/10, nothing is noted to aggravate/alleviate Sx. Home medications and allergies are reviewed. - History Of Current Complaint Chief Complaint: EDGeneral Hx Obtained From: Patient Onset/Duration: Lasting Days, Still Present, Worse Since Timing: Days Severity Currently: Severe Severity Initially: Mild Location: Pain At: - abdomen Aggravating Factor(s): nothing Alleviating Factor(s): nothing Associated Signs And Symptoms: Positive: Dizziness - light-headedness, Edema - BLE, Nausea, Vomiting, Abdominal Pain. Negative: SOB, Chest Pain - Allergies/Home Medications Allergies/Adverse Reactions: Allergies Allergy/AdvReac Type Severity Reaction Status Date / Time No Known Allergies Allergy Verified 08/10/19 22:57 Home Medications: Home Medications Insulin Glargine,Hum.rec.anlog [Lantus] 25 unit SUBCUT BEDTIME 08/10/19 [ History Confirmed 08/10/19] Insulin Lispro [Humalog] 0 unit SUBCUT TID 08/10/19 [History Confirmed 08/10/19] PMH/Surg Hx/FS Hx/Imm Hx Endocrine/Hematology History: Reports: Hx Diabetes Sensory History: Denies: Hx Legally Blind, Hx Deafness Opthamlomology History: Denies: Hx Legally Blind EENT History: Denies: Hx Deafness - Surgical History Surgery Procedure, Year, and Place: piece of pancreas removed Infectious Disease History: No Infectious Disease History: Denies: Traveled Outside the [place] in Last 30 Days - Family History Known Family History: Negative: Blood Disorder - Social History Alcohol Use: None Substance Use Type: Reports: None Smoking Status (MU): Unknown if Ever Smoked Review of Systems Negative: Chest Pain Negative: Shortness Of Breath Positive: Abdominal Pain, Vomiting, Nausea Positive: Edema - BLE Neurological: Other - positive - light-headedness and dizziness All Other Systems Reviewed And Are Negative: Yes Physical Exam - Summary Physical Exam Summary: Appearance: Ill-appearing, Well-nourished, lying in bed, appears dehydrated Skin: Warm, dry, no obvious rash Eyes: sclera anicteric, no conjunctival pallor ENT: mucous membranes dry, pharynx appears normal Neck: Supple, nontender Respiratory: Clear to auscultation, no signs of respiratory distress Cardiovascular: Normal S1, S2. No murmurs. Normal distal pulses in tibial and radial bilaterally. Abdomen: Soft, nontender, normal active bowel sounds present Musculoskeletal: Normal, Strength/ROM Intact Triage Information Reviewed: Yes Vital Signs On Initial Exam: Initial Vitals Temp Pulse Resp BP Pulse Ox 98.6 F 87 18 122/88 98 08/10/19 22:54 08/10/19 22:54 08/10/19 22:54 08/10/19 22:54 08/10/19 22:54 Vital Signs Reviewed: Yes Procedures - Sedation Patient Received Moderate/Deep Sedation with Procedure: No Diagnostics - Vital Signs Vital Signs Temp Pulse Resp BP Pulse Ox 08/10/19 22:54 98.6 F 87 18 122/88 98 - Laboratory Lab Results: Lab Results 08/10/19 08/10/19 08/10/19 Range/Units 22:47 22:50 22:50 WBC 8.0 (3.5-10.8) 10^3/uL RBC 5.31 (4.18-5.48) 10^6 /uL Hgb 16.7 (14.0-18.0) g/dL Hct 50 (42-52) % MCV 93 (80-94) fL MCH 31 (27-31) pg MCHC 33 (31-36) g/dL RDW 15 (10-15) % Plt Count 261 (150-450) 10^3/uL MPV 9.6 (7.4-10.4) fL Neut % (Auto) 62.9 % Lymph % (Auto) 24.1 % [place] % (Auto) 10.5 % Eos % (Auto) 1.8 % Baso % (Auto) 0.7 % Absolute Neuts (auto) 5.1 (1.5-7.7) 10^3/ul Absolute Lymphs (auto) 1.9 (1.0-4.8) 10^3/ul Absolute Monos (auto) 0.8 (0-0.8) 10^3/ul Absolute Eos (auto) 0.1 (0-0.6) 10^3/ul Absolute Basos (auto) 0.1 (0-0.2) 10^3/ul Absolute Nucleated RBC 0.1 10^3/ul Nucleated RBC % 0.8 VBG pH (7.32-7.43) VBG pCO2 (41-51) mmHg VBG pO2 (35-45) mmHg VBG HCO3 (24-28) mmol/L VBG O2 Saturation (70-80) % VBG Base Excess (0.0-4.0) mmol/L POC Glucose (mg/dL) > 444 H* (70-100) mg/dL Glucose Meter Confirm (70-100) mg/dL Lactic Acid 0.9 (0.5-2.0) mmol/L 08/10/19 08/10/19 Range/Units 22:53 23:37 WBC (3.5-10.8) 10^3/uL RBC (4.18-5.48) 10^6 /uL Hgb (14.0-18.0) g/dL Hct (42-52) % MCV (80-94) fL MCH (27-31) pg MCHC (31-36) g/dL RDW (10-15) % Plt Count (150-450) 10^3/uL MPV (7.4-10.4) fL Neut % (Auto) % Lymph % (Auto) % [place] % (Auto) % Eos % (Auto) % Baso % (Auto) % Absolute Neuts (auto) (1.5-7.7) 10^3/ul Absolute Lymphs (auto) (1.0-4.8) 10^3/ul Absolute Monos (auto) (0-0.8) 10^3/ul Absolute Eos (auto) (0-0.6) 10^3/ul Absolute Basos (auto) (0-0.2) 10^3/ul Absolute Nucleated RBC 10^3/ul Nucleated RBC % VBG pH 7.50 H (7.32-7.43) VBG pCO2 43 (41-51) mmHg VBG pO2 51.0 H (35-45) mmHg VBG HCO3 31.6 H (24-28) mmol/L VBG O2 Saturation 91.8 H (70-80) % VBG Base Excess 9.2 H (0.0-4.0) mmol/L POC Glucose (mg/dL) (70-100) mg/dL Glucose Meter Confirm 508 H* (70-100) mg/dL Lactic Acid (0.5-2.0) mmol/L Result Diagrams: 08/10/19 22:50 08/11/19 01:50 Lab Statement: Any lab studies that have been ordered have been reviewed, and results considered in the medical decision making process. - Radiology CXR Radiology Interpretation Completed By: ED Physician Summary of Radiographic Findings: No acute process, pending official report. - EKG 1441 Cardiac Rate: NL - rate of 85 BPM EKG Rhythm: Sinus Rhythm Summary of EKG Findings: EKG showed NSR at 85 BPM, P waves, QRS complex, and T waves are within normal limits, T waves and intervals are normal, no ischemic changes, no STEMI. This is a normal EKG. ED physician has reviewed and interpreted this EKG. Complex Multi-Symp Course/Dx Course Of Treatment: Patient is a 44 y/o diabetic male presenting to [facility] with complaints of diffuse abdominal pain, N/V, dizziness, light-headedness, and BLE edema. CP and SOB are denied. He states that he has been having abdominal pain over the past week but experienced an exacerbation this evening, 08/10/19. He claims that he has been unable to keep any food down for the past few days. Patient reports that he administered 25 units of Lantus and 12 units of Humalog GOLD MARKER. Glucose measurement was attempted, but read "over range". PSHx of removal of a piece of his pancreas is reported. On physical exam, patient is noted to be ill-appearing, dehydrated, and with dry mucous membranes. EKG showed NSR at 85 BPM, P waves, QRS complex, and T waves are within normal limits, T waves and intervals are normal, no ischemic changes, no STEMI. This is a normal EKG. CXR showed no acute process. Bloodwork was obtained. POC glucose was >444, Glucose meter confirm was 508, glucose was 514. ALT was 156, alk phos 217, triglycerides were 2210. Serum alcohol was negative. VBG showed pH 7.5, pO@ 51, HCO3 31.6, o2 saturation was 91.8, base excess 9.2. During ED course, patient received Zofran 8 mg IV, morphine 10 mg IV, reglan 10 mg IV, fluids, and insulin 10 units SUBCUT. Patient's case was discussed with Dr. Palomo, Dr. Palomo accepts for admission. - Diagnoses Provider Diagnoses: Acute on chronic pancreatitis, Nausea and vomiting, Dehydration, Uncontrolled diabetes mellitus - Physician Notifications Discussed Care Of Patient With: Klever Palomo Time Discussed With Above Provider: 00:23 Instructed by Provider To: Other - Patient's case was discussed with Dr. Palomo , Dr. Palomo accepts for admission. Discharge ED - Sign-Out/Discharge Documenting (check all that apply): Patient Departure - admit - Discharge Plan Condition: Fair Disposition: ADMITTED TO [facility] - Billing Disposition and Condition Condition: FAIR Disposition: Admitted to [facility] - Attestation Statements Document Initiated by Andra: Yes Documenting Scribe: OLENA REDD Provider For Whom Enrriquee is Documenting (Include Credential): OZ CROWDER MD Scribe Attestation: IOLENA, scribed for OZ CROWDER MD on 08/11/19 at 0254. Scribe Documentation Reviewed: Yes Provider Attestation: The documentation as recorded by the OLENA miller accurately reflects the service I personally performed and the decisions made by me, OZ CROWDER MD Status of Scribe Document: Viewed
[2019-08-10] MEDS ORDERED: Morphine 10 MG/ML VIAL (1 ml) IV ONE (23:59)
[2019-08-11] MEDS ORDERED: Ondansetron INJ* 2 MG/ML VIAL IV ONE
[2019-08-11] MEDS ORDERED: Morphine 10 MG/ML VIAL (1 ml) IV ONE
[2019-08-11 00:01] LABS: Albumin 3.9 g/dL (3.2-5.2); Albumin/Globulin Ratio 1.3 (1-3); Alkaline Phosphatase 217 U/L (34-104); Anion Gap 11 mmol/L (2-11); BUN/Creatinine Ratio 17.4 (8-20); Blood Urea Nitrogen 16 mg/dL (6-24); CO2 Carbon Dioxide 24 mmol/L (22-32); Calcium 9.3 mg/dL (8.6-10.3); Chloride 93 mmol/L (101-111); EGFR African American 108.6 (>60); EGFR Non-African American 89.8 (>60); Glucose 514 mg/dL (70-100); Sodium 128 mmol/L (135-145); Total Protein 6.9 g/dL (6.4-8.9)
[2019-08-11 00:04] LABS: Alcohol < 10 mg/dL (<10)
[2019-08-11 00:21] LABS: ALT 156 U/L (7-52); Triglycerides 2210 mg/dL
[2019-08-11] MEDS ORDERED: Insulin REGULAR(*) 1 UNITS UNIT SUBCUT ONE ×2 (00:23→02:30)
[2019-08-11] MEDS ORDERED: Metoclopramide IV* 5 MG/ML 2 ML VIAL IV SLOW PU ONE (00:39)
[2019-08-11 01:02] LABS: Urine Appearance Clear; Urine Bilirubin Negative (Negative); Urine Blood Negative (Negative); Urine Color Straw; Urine Glucose 3+(>=500 mg/dL) (Negative); Urine Ketones Trace (Negative); Urine Nitrite Negative (Negative); Urine Protein Negative (Negative); Urine Specific Gravity 1.032 (1.010-1.030); Urine Urobilinogen Negative (Negative)
--- OUTSIDE RECORDS SUMMARY | 2019-08-11 01:18 | XMS REPORT | Summary of Care ---
:1975 Author Organization [facility] Address [address] [address] Care Team Providers Name Role Phone Don Heller MD Primary Care Provider Reason for Referral (Routine) Status Reason Specialty Diagnoses / Procedures Referred By Contact Referred To Contact Americo Hines MD [address] [address] Scheduling Instructions Reason for Consult: 44 yo M with recurrent pancreatitis, had received celiac plexus block during last admission, presenting with severe abdominal pain. Patient Background: Ryder Chinchilla is a 44-y.o. male Active Problems: Abdominal pain, acute Current Facility-Administered Medications: enoxaparin (LOVENOX) injection 40 mg/0.4 mL 40 mg HYDROmorphone (DILAUDID) DECAL DECORATOR 0.5 mg/ml 100mL morphine (PF) syringe 2 mg naloxone (NARCAN) injection 0.04 mg normal saline IV ondansetron (ZOFRAN) injection 4 mg (Routine) Status Reason Specialty Diagnoses / Procedures Referred By Contact Referred To Contact Sung Mirza MD [address] [address] Scheduling Instructions Reason for Consult: intractable vomiting; abdominal pain Patient Background: Ryder Chinchilla is a 44-y.o. 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 male Reason for Visit Auth/Cert Status Reason Specialty Diagnoses / Procedures Referred By Contact Referred To Contact Encounter Details Date Type Department Care Team Description 06/21/2019 - [facility] 6 Sung Reid MD [address] [address] Inpatient 06/23/2019 1 Americo Garcia MD [address] [address] [address] [place] [address] Allergies Active Allergy Reactions Severity Noted Date Comments Codeine GI Reaction 12/25/2017 Stomach upset Ibuprofen GI Reaction 12/25/2017 Stomach upset Pain Relief Extra Unknown Reaction 12/25/2017 Was given tylenol with out issue at OSH documented as of this encounter (statuses as of 06/24/2019) Medications Medication Sig Dispensed Refills Start Date End Date Status pantoprazole Take 1 Tab by mouth 30 Tab 0 07/18/2015 Active (PROTONIX) 40 MG Oral BEFORE BREAKFAST. Tab EC Blood Glucose by Does not apply 1 Kit 0 07/18/2015 Active Monitoring Suppl route. (BLOOD GLUCOSE METER) Brand:Covered by Does not apply Kit Insurance Dx:New onset DM Insulin dependent Test Blood Glucose 4 time(s) A DAY Glucose Blood In 1 Strip by In Vitro 100 Strip 0 07/18/2015 Active Vitro Strip route FOUR TIMES DAILY. Pen Madison 3/16" 31G 1 Applicator by 30 Each 0 07/18/2015 Active X 5 MM Does not apply Does not apply Misc route FOUR TIMES DAILY. Lancets 30G Does not 1 Applicator by 100 Each 0 07/18/2015 Active apply Misc Does not apply route FOUR TIMES DAILY. gemfibrozil (LOPID) Take 1 Tab by mouth 90 Tab 3 08/10/2015 Active 600 MG Oral Tab THREE TIMES DAILY. Additional information Patient taking differently: 600 mg Oral DAILY, Reported on 06/10/2019 11:47 AM Insulin Glargine (LANTUS Inject 30 Units beneath 1 Device 0 08/10/2015 Active SOLOSTAR) 100 UNIT/ML the skin EVERY BEDTIME. Subcutaneous Solution Pen-injector Additional information Patient taking differently: 64 Units Subcutaneous QHS, Reported on 06/10/2019 11:47 AM Insulin Lispro, Human, Inject 10 Units beneath 1 Device 0 08/10/2015 Active (HUMALOG KWIKPEN) 100 UNIT/ML the skin BEFORE SUPPER. Subcutaneous Solution . Pen-injector Additional information Patient taking differently: 10-12 Units Subcutaneous AC, ., Indications: with meals a needed, Reported on 06/10/2019 11:47 AM gabapentin (NEURONTIN) 300 Take 1 Cap by mouth THREE 90 Cap 0 12/30/2017 Active MG Oral Cap TIMES DAILY. Pancrelipase, [id number], Take 1 Cap by mouth THREE 0 Active (CREON) 94536 units Oral TIMES DAILY BEFORE MEALS. CAPSULE ENTERIC COATED Indications: Pancreatic PARTICLESIndications: Insufficiency Pancreatic Insufficiency METFORMIN HCL ER PO Take 1 Tab by mouth THREE 0 Active TIMES DAILY BEFORE MEALS. HYDROmorphone (DILAUDID) 4 Take 1 Tab by mouth THREE 30 Tab 0 06/13/2019 Active MG Oral Tab TIMES DAILY NEEDED (pain). Max Daily Amount: 12 mg. documented as of this encounter (statuses as of 06/24/2019) Active Problems Problem Noted Date Abdominal pain, acute 06/21/2019 Acute on chronic pancreatitis 06/09/2019 Overview: History of chronic pancreatitis s/p pancreatectomy in 2014, DM1, hypertriglyceridemia, who presents with stabbing LUQ abdominal pain similar to his previous pancreatitis episodes, worsening with movemen t and PO intake and associated nausea and vomiting. Imaging cannot rule out pancreatitis, acalculous cholecystitis, cholangitis, choledocholithiasis. 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 DM (diabetes mellitus), secondary uncontrolled 07/18/2015 Overview: - Decrease to 30 Lantus given NPO status - ISS - POC q 6hr Acute pancreatitis 07/14/2015 Hypertriglyceridemia 07/14/2015 Overview: - Lipid panel in AM documented as of this encounter (statuses as of 06/24/2019) Social History Tobacco Use Types Packs/Day Years Used Date Current Every Day Smoker Cigarettes 0.25 14 Smokeless Tobacco: Current User Chew Alcohol Use Drinks/Week oz/Week Comments No history alcohol abuse Education Answer Date Recorded What is the highest level of school you have High school graduate 06/10/2019 completed or the highest degree you have received? Sex Assigned at Date Recorded Not on file Job Start Date Occupation Industry Not on file Not on file Not on file Travel History Travel Start Travel End No recent travel history available. documented as of this encounter Last Filed Vital Signs Vital Sign Reading Time Taken Comments Blood Pressure 134/92 06/23/2019 8:00 AM nurse made aware EST Pulse 57 06/23/2019 8:00 AM EST Temperature 36.6 06/23/2019 8:00 AM C (97.9 EST F) Respiratory Rate 18 06/23/2019 8:00 AM EST Oxygen Saturation 98% 06/23/2019 4:00 AM EST Inhaled Oxygen Concentration - - Weight 76.5 kg (168 lb 11.2 06/21/2019 3:00 AM oz) EST Height 177.8 cm (5' 10") 06/21/2019 3:00 AM EST Body Mass Index 24.21 06/21/2019 3:00 AM EST documented in this encounter Discharge Summaries Americo Hines MD - 06/23/2019 1:45 PM [facility] [id number] [facility] Summary Patient ID: Ryder Chinchilla [id number] 44-y.o. 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 He was admitted to the hospitalist service. He was started on IV pain medications [ patient controlled anesthesia pump of Dilaudid], IV fluids and he was started on diet as tolerated. CT scan of abdomen was done that showed findings suggestive of acute on chronic pancreatitis. He was started on oral pancrelipase supplement. Gastroenterology team and surgical team were consulted , who recommended conservative management. Interventional pain management was consulted, the patient had undergone celiac plexus block during the last admission, as per interventional pain management, patient would not be a candidate for neurologic procedure and repeat celiac plexus block was not recommended as the procedure had providedpain relief only during the duration of the local anesthetic. With conservative treatment, patient symptoms gradually improved, he was tolerating diet, on the dayof discharge, he was interviewed and examined, he was discharged home. Examination on the day of discharge BP 134/92 Pulse 57 Temp 97.9 F (36.6 C) (Temporal) Resp 18 Ht 5' 10 " (1.778 m) Wt 168 lb 11.2 oz (76.5 kg) SpO2 98% BMI 24.21 kg/m2 Constitutional: Not in distress General: Alert and oriented to person, place and time Respiratory: Not Tachypneic, no wheezes or crackles. CVS: S1, S2 heard GI: Not distended, mildly tender in epigastrium, bowel sounds + Extremities: No Pedal Edema Consults: CONSULT TO GENERAL SURGERY CONSULT TO GASTROENTEROLOGY CONSULT TO INTERVENTIONAL PAIN MEDICINE Procedures: Xr Chest 1 View Result Date: 06/09/2019 Procedure(s): XR CHEST 1 VIEW Date of service: 06/09/2019 9:36 AM Provided clinical information: 44 years, Male, "NG tube placement" Procedure and materials: Standard protocol. Comparison studies: 06/08/2019. Observations: Esophageal route gastric tube is in place. Tip and sidehole within the upper stomach. Lungs are clear. Normal cardiac silhouette. Adequate NG tube positioning. Urgency: Routine. This is a routine medical imaging report. Recommendation: No specific imaging recommendation. Signed by Phillip Zamarripa MD on 06/09/2019 10:41 AM Us Abdomen Complete Result Date: 06/09/2019 PROCEDURE INFORMATION: Exam: US Abdomen Complete Exam date and time: 06/09/2019 11:43 AM Clinical history: 44 years old, male; Pain; Additional info: Indication for study->abnormal liver function tests (lfts) TECHNIQUE: Imaging protocol: Real-time ultrasound of the abdomen with image documentation. COMPARISON: US ABDOMEN COMPLETE 06/08/2019 7:14 PM FINDINGS: Liver: Hepatomegaly. Gallbladder: No gallstones. No gallbladder wall thickening. Gallbladder wall measures 2.7 mm. No pericholecystic fluid. Negative sonographic Lewis's sign. Common bile duct: Common bile duct measures 2.5 mm. No stones. No dilation. Pancreas: Pancreas was not visualized. Right kidney: Normal. No mass. No hydronephrosis. Left kidney: LEFT renal 2.4 cm cyst. Spleen : Abnormal spleen. Please see CT abdomen and pelvis report 06/08/2019. 1. Hepatomegaly. 2. No sonographic findings of acute cholecystitis. 3. Abnormal spleen. Please see CT abdomen and pelvis report 06/08/2019. THIS DOCUMENT HAS BEEN ELECTRONICALLY SIGNED BY DIVYA Willis For Nerve Block Result Date: 06/12/2019 Fluoroscopy was used to assist the pain management physician with an interventional procedure. Ct Abdomen Pelvis With Iv Contrast Result Date: 06/21/2019 Procedure: CT ABDOMEN PELVIS WITH IV CONTRAST Date of service: 06/21/2019 7:30 AM History: 44 years,Male, "Abdominal pain, unspecified" Technique: Axial CT images of the abdomen and pelvis with contrast. Coronal and sagittal reformats were also performed. Comparison: 06/08/19, 12/26/17 Findings: The lung bases are clear. There is periportal edema in the liver. Gallbladder is normal. The pancreas is atrophic. Small amount of peripancreatic fluid is seen. The spleen is again atrophic and deformed with a small perisplenic fluid collection. There is no adrenal mass. There is no hydronephrosis or solid renal mass. There are circumaortic left renal veins. There is no bowel obstruction or bowel wallthickening. Appendix is normal. There is no pneumoperitoneum, ascites or lymphadenopathy. The bladder is underdistended with mildly thickened wall. There is excreted contrast in the bladder. [place] has normal size. Seminal vesicles are symmetric. No suspicious bony lesion is identified. 1. Atrophic pancreas suggesting chronic pancreatitis. Small amount of peripancreatic fluid may represent superimposed acute pancreatitis. 2. Redemonstrated small perisplenic fluid collection, suspicious for complication of pancreatitis. 3. Periportal edema in the liver, nonspecific. Signed by Clifford Aranda on 06/21/2019 8:08 AM Complications: None Medications: Current Discharge Medication List CONTINUE these medications which have changed gemfibrozil 600 MG Tabs Commonly known as: LOPID Dose: 600 mg What changed: when to take this Quantity: 90 Tab Refills: 3 Take 1 Tab by mouth THREE TIMES DAILY. Insulin Glargine 100 UNIT/ML Sopn Commonly known as: LANTUS SOLOSTAR Dose: 30 Units What changed: how much to take Quantity: 1 Device Refills: 0 Inject 30 Units beneath the skin EVERY BEDTIME. Insulin Lispro 100 UNIT/ML Sopn Commonly known as: HUMALOG KWIKPEN Dose: 10 Units What changed: how much to take when to take this Quantity: 1 Device Refills: 0 Inject 10 Units beneath the skin BEFORE SUPPER. . CONTINUE these medications which have NOT CHANGED Blood Glucose Meter Kit Quantity: 1 Kit Refills: 0 by Does not apply route. Brand:Covered by Insurance Dx:New onset DM Insulin dependent Test Blood Glucose 4 time(s) A DAY CREON 65896 units Cpep Generic drug: Pancrelipase (Qaz-[id number]) Dose: 1 Cap For: Pancreatic Insufficiency Refills: 0 Take 1 Cap by mouth THREE TIMES DAILY BEFORE MEALS. Indications: Pancreatic Insufficiency gabapentin 300 MG Caps Commonly known as: NEURONTIN Dose: 300 mg Quantity: 90 Cap Refills: 0 Take 1 Cap by mouth THREE TIMES DAILY. Glucose Blood Strp Dose: 1 Strip Quantity: 100 Strip Refills: 0 1 Strip by In Vitro route FOUR TIMES DAILY. HYDROmorphone 4 MG Tabs Commonly known as: DILAUDID Dose: 4 mg Quantity: 30 Tab Refills: 0 Take 1 Tab by mouth THREE TIMES DAILY NEEDED (pain). Max Daily Amount: 12 mg. Lancets 30G Misc Dose: 1 Applicator Quantity: 100 Each Refills: 0 1 Applicator by Does not apply route FOUR TIMES DAILY. METFORMIN HCL ER PO Dose: 1 Tab Refills: 0 Take 1 Tab by mouth THREE TIMES DAILY BEFORE MEALS. pantoprazole 40 MG Tbec Commonly known as: PROTONIX Dose: 40 mg Quantity: 30 Tab Refills: 0 Take 1 Tab by mouth BEFORE BREAKFAST. Pen Madison 3/16" 31G X 5 MM Misc Dose: 1 Applicator Quantity: 30 Each Refills: 0 1 Applicator by Does not apply route FOUR TIMES DAILY. Patient Instructions: Goals:Patient to maintain functional ability. Prevent readmission and improve functional health status. Activity/Restrictions: activity as tolerated Discharge Diet: Diabetic Diet and Low fat, Low cholesterol Diet. Keep yourself well hydrated. Special Instructions: Please take your prescribed medications as instructed. Please follow-up with your primary care provider Don Heller within 1 week from discharge from the hospital. Total duration of time spent: 35 minutes. Provider Signature: Americo Hines MD documented in this encounter Discharge Instructions Sara Kelly RN - 06/23/2019Provider's Instructions Reason for Admission or Diagnosis:Acute on chronic pancreatitis (HCC) Goals:Patient to maintain functional ability. Prevent readmission and improve functional health status. Activity/Restrictions: activity as tolerated Discharge Diet: Diabetic Diet and Low fat, Low cholesterol Diet. Keep yourself well hydrated. Special Instructions: Please take your prescribed medications as instructed. Please follow-up with your primary care provider Don Heller within 1 week from discharge from the hospital. Discharge Provider: Americo Hines MD Attending: Americo Hines MD Time: 10:49 Nurse's Instructions Problems to report to your Physician: Excessive pain or discomfort Fever > 100.5 degrees Difficulty breathing Increase or smell in wound drainage documented in this encounter Progress Notes Klever Felix MD FACG - 06/22/2019 12:22 PM EST Gastroenterology Progress Note [address] [address] ADMISSION DATE: 06/21/19 LOCATION: 6 MAIN ATTENDING: AMERICO HINES MD ,MD Interval Hx Patient is feeling better today although still has some symptoms of nausea and consistent abdominal pain somewhat improved, has had a small amount of food which here was able to keep down we will attempt advancing diet today. No current prescriptions on file. BP 116/81 | Pulse 58 | Temp 96.6 F (35.9 C) (Temporal) | Resp 16 | Ht 5' 10" (1.778 m) | Wt 168 lb 11.2 oz (76.5 kg) | SpO2 96% | BMI 24.21 kg/ m Physical Exam: General appearance: alert, no acute distress Eyes: conjunctivae and sclerae appear normal Throat: lips, mucosa, and tongue normal. Lungs: effort appears normal, no stridor appreciated Abdomen: soft, TTP diffusely ; bowel sounds normal; no masses, no organomegaly. Skin: no rashes appreciated, no jaundice. Neurologic: Mental status: alert, oriented, thought content appropriate, no asterixis. Extremities: no lower extremity edema, no muscle wasting appreciated.. 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 Patient is status post celiac block approximately 1 week ago. Plan: -Supportive care with antiemetics, pain medications, and prokinetics if deemed necessary -Aggressive IV fluid hydration for treatment of pancreatitis -Trend daily CMP's, lipase WNL, low threshold for infectious work-up if the patient has any signs orsymptoms -Adequate blood sugar control -No indication for endoscopic intervention at this time -Primary team with plans for anesthesia pain service to evaluate the patient early in the week It was a pleasure participating in the care of this patient, thank you for the consult. GI will signoff at this time. Do not hesitate to call with any further questions or concerns. Yusuf aRe MD PGY4 GI Fellow I saw and evaluated the patient. Discussed with the GI Fellow and agree with the Fellow's findings and plan as documented in the Fellow's note. Klever Felix MD FACG Supervising Physician Americo Sullivan MD - 06/22/2019 11:22 AM EST [facility] [address] [place]. [id number] Internal Medicine Progress Note Date of Service: 06/22/2019 Patient: Ryder Lama #: [id number] Attending: AMERICO HINES MD , Subjective: Day 1 of hospitalization Current Symptoms: Patient's abdominal pain is better controlled. He is tolerating liquid diet. He had nausea overnight. No diarrhea, constipation. No fever or chills. He is passing flatus. Objective: Vitals: Blood pressure 116/81, pulse 58, temperature 96.6 F (35.9 C), temperature source Temporal, resp. rate 16, height 5' 10" (1.778 m), weight 168 lb 11.2 oz (76.5 kg), SpO2 96 %. Alert, oriented x3 Eyes: No conjunctival pallor, CARRI Respiratory: Not Tachypneic, Bilateral Equal Air Entry, no wheezes or crackles. CVS: No JVD, S1, S2 heard GI: Not distended, soft, tender in epigastrium and LUQ, bowel sounds + Extremities: No Pedal Edema I/O: Intake/Output Summary (Last 24 hours) at 06/22/2019 1122 Last data filed at 06/22/2019 0900 Gross per 24 hour Intake 2304.8 ml Output 1600 ml Net 704.8 ml Relevant labs and Radiology Results: Lab Results Component Value Date NA 135 06/22/2019 K 3.7 06/22/2019 CL 104 06/22/2019 CO2 21 (L) 06/22/2019 GLUCOSE 346 (H) 06/22/2019 BUN 8 (L) 06/22/2019 CREATININE 0.5 (L) 06/22/2019 CALCIUM 8.2 (L) 06/22/2019 EGFR >60 06/22/2019 Assessment/Plan: Acute on chronic pancreatitis in a patient with history of necrotizing hemodialysis status post necrosectomy and cystogastrostomy, splenic infarct Continue with IV fluid, Protonix, DECAL DECORATOR pump for pain management, advance diet as tolerated, continue gabapentin CT showed findings suggestive of chronic pancreatitis with peripancreatic fluid , suggestive of acutepancreatitis. Continue pancrelipase supplement Appreciate GI and surgical team's follow-up. Obtain interventional pain management consultation. Type 2 diabetes mellitus, uncontrolled Continue with Lantus, pre-meal and sliding scale lispro insulin Dyslipidemia Continue gemfibrozil DVT Prophylaxis: venodynes. Hold lovenox in anticipation of Intervention pain management clinic tomorrow GI Prophylaxis: protonix Nutrition: diabetic. Body mass index is 24.21 kg/m. . Williamson remains in place for the following reason(s): No williamson present External Grinder Tool: Not required Smoking cessation counseling was provided for 0 minutes PT/OT: Not required Disposition: Awaiting medical stabilization Updated at bedside Author: Americo Hines MD [address]ino Street NP - 06/21/2019 9:39 AM EST [facility] [address] [place] [id number] Medical Surgical Trauma & ACS Progress Note Date of Service: 06/21/2019 Date of Admission: 06/21/19 Patient: Ryder Lama #: [id number] Attending: AMERICO HINES MD ,MD Interval Present History: no acute distress, pain remains present, VSS, no surgical intervention required Vitals: Blood pressure 128/80, pulse 62, temperature 97.3 F (36.3 C), temperature source Temporal, resp. rate 20, height 5' 10" (1.778 m), weight 168 lb 11.2 oz (76.5 kg), SpO2 98 %. SaO2% onRoom Air I/O: Medications: Current Facility-Administered Medications Medication enoxaparin (LOVENOX) injection 40 mg/0.4 mL 40 mg HYDROmorphone (DILAUDID) DECAL DECORATOR 0.5 mg/ml 100mL HYDROmorphone (DILAUDID) syringe 1 mg naloxone (NARCAN) injection 0.04 mg normal saline IV ondansetron (ZOFRAN) injection 4 mg General: No acute distress, anxious HEENT: no trauma Lungs: no respiratory distress, room air Abd: guarding, tender Ext: WIN Labs: WBC Count Date Value Ref Range Status 06/21/2019 10.60 (H) 4.23 - 9.07 K/uL Final Hemoglobin Date Value Ref Range Status 06/21/2019 15.3 13.7 - 17.5 g/dL Final Hematocrit Date Value Ref Range Status 06/21/2019 44.0 40.1 - 51.0 % Final Platelet Count Date Value Ref Range Status 06/21/2019 327 163 - 337 K/uL Final Sodium Date Value Ref Range Status 06/21/2019 135 134 - 145 mmol/L Final Potassium Date Value Ref Range Status 06/21/2019 3.5 3.5 - 5.1 mmol/L Final Chloride Date Value Ref Range Status 06/21/2019 104 98 - 107 mmol/L Final CO2 Date Value Ref Range Status 06/21/2019 21 (L) 22 - 30 mmol/L Final Glucose Date Value Ref Range Status 06/21/2019 290 (H) 70 - 99 mg/dl Final BUN Date Value Ref Range Status 06/21/2019 11 9 - 20 mg/dl Final Creatinine Date Value Ref Range Status 06/21/2019 0.5 (L) 0.8 - 1.5 mg/dl Final Calcium Date Value Ref Range Status 06/21/2019 8.2 (L) 8.3 - 10.1 mg/dl Final Alkaline Phosphatase Date Value Ref Range Status 06/21/2019 169 (H) 40 - 150 U/L Final Calcium Date Value Ref Range Status 06/21/2019 8.2 (L) 8.3 - 10.1 mg/dl Final Magnesium Date Value Ref Range Status 06/21/2019 1.6 1.6 - 2.3 MG/DL Final INR Date Value Ref Range Status 06/21/2019 1.04 0.88 - 1.13 Ratio Final Comment: INR Therapeutic Range: 2.0 - 3.5 BS: Xr Chest 1 View Result Date: 06/09/2019 Procedure(s): XR CHEST 1 VIEW Date of service: 06/09/2019 9:36 AM Provided clinical information: 44 years, Male, "NG tube placement" Procedure and materials: Standard protocol. Comparison studies: 06/08/2019. Observations: Esophageal route gastric tube is in place. Tip and sidehole within the upper stomach. Lungs are clear. Normal cardiac silhouette. Adequate NG tube positioning. Urgency: Routine. This is a routine medical imaging report. Recommendation: No specific imaging recommendation. Signed by Phillip Zamarripa MD on 06/09/2019 10:41 AM Us Abdomen Complete Result Date: 06/09/2019 PROCEDURE INFORMATION: Exam: US Abdomen Complete Exam date and time: 06/09/2019 11:43 AM Clinical history: 44 years old, male; Pain; Additional info: Indication for study->abnormal liver function tests (lfts) TECHNIQUE: Imaging protocol: Real-time ultrasound of the abdomen with image documentation. COMPARISON: US ABDOMEN COMPLETE 06/08/2019 7:14 PM FINDINGS: Liver: Hepatomegaly. Gallbladder: No gallstones. No gallbladder wall thickening. Gallbladder wall measures 2.7 mm. No pericholecystic fluid. Negative sonographic Lewis's sign. Common bile duct: Common bile duct measures 2.5 mm. No stones. No dilation. Pancreas: Pancreas was not visualized. Right kidney: Normal. No mass. No hydronephrosis. Left kidney: LEFT renal 2.4 cm cyst. Spleen : Abnormal spleen. Please see CT abdomen and pelvis report 06/08/2019. 1. Hepatomegaly. 2. No sonographic findings of acute cholecystitis. 3. Abnormal spleen. Please see CT abdomen and pelvis report 06/08/2019. THIS DOCUMENT HAS BEEN ELECTRONICALLY SIGNED BY DIVYA Willis For Nerve Block Result Date: 06/12/2019 Fluoroscopy was used to assist the pain management physician with an interventional procedure. Ct Abdomen Pelvis With Iv Contrast Result Date: 06/21/2019 Procedure: CT ABDOMEN PELVIS WITH IV CONTRAST Date of service: 06/21/2019 7:30 AM History: 44 years,Male, "Abdominal pain, unspecified" Technique: Axial CT images of the abdomen and pelvis with contrast. Coronal and sagittal reformats were also performed. Comparison: 06/08/19, 12/26/17 Findings: The lung bases are clear. There is periportal edema in the liver. Gallbladder is normal. The pancreas is atrophic. Small amount of peripancreatic fluid is seen. The spleen is again atrophic and deformed with a small perisplenic fluid collection. There is no adrenal mass. There is no hydronephrosis or solid renal mass. There are circumaortic left renal veins. There is no bowel obstruction or bowel wallthickening. Appendix is normal. There is no pneumoperitoneum, ascites or lymphadenopathy. The bladder is underdistended with mildly thickened wall. There is excreted contrast in the bladder. [place] has normal size. Seminal vesicles are symmetric. No suspicious bony lesion is identified. 1. Atrophic pancreas suggesting chronic pancreatitis. Small amount of peripancreatic fluid may represent superimposed acute pancreatitis. 2. Redemonstrated small perisplenic fluid collection, suspicious for complication of pancreatitis. 3. Periportal edema in the liver, nonspecific. Signed by Clifford Aranad on 06/21/2019 8:08 AM Lines/Drains: PIV Core Measures: DVT Prophylaxis: lovenox GI Prophylaxis: not indicated Nutrition: diabetic Williamson Remains in place for the following reason(s): No williamson present Anticipated Discharge Date: tbd Assessment and Plan: Ryder Chinchilla is a 44-y.o. 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 Recently was admitted here at [facility] about 10 days ago due to abdominal pains and underwent celiac plexus block (06/12/19) for the chronic pains. Abdominal pain secondary to chronic pancreatitis - no surgical intervention recommended - continue medical management - continue IVF - advance diet as patient tolerates - optimize pain managmement - general surgery signing off, appreciate consult Author: Trino Cardenas NP documented in this encounter Plan of Treatment Health Maintenance Due Date Last Done Comments PNEUMOCOCCAL 0-64 YRS ( of - 1982 PPSV23) DEPRESSION SCREENING 1988 HIV SCREENING 1991 INFLUENZA VACCINE (#1) 2019 HPV IMMUNIZATION SERIES Aged Out No longer eligible based on patient's age to complete this topic MENINGOCOCCAL VACCINE IMM Aged Out No longer eligible based on patient's age to complete this topic documented as of this encounter Procedures Procedure Name Priority Date/Time Associated Comments Diagnosis HC GLUCOSE, BY MONITOR Routine 06/23/2019 12:16 Results for this PM EST procedure are in the results section. HC GLUCOSE, BY MONITOR Routine 06/23/2019 8:34 Results for this AM EST procedure are in the results section. COMPREHENSIVE METABOLIC Routine 06/23/2019 6:46 Results for this PANEL AM EST procedure are in the results section. CBC NO DIFFERENTIAL Routine 06/23/2019 5:03 Results for this AM EST procedure are in the results section. HC GLUCOSE, BY MONITOR Routine 06/22/2019 9:22 Results for this PM EST procedure are in the results section. HC GLUCOSE, BY MONITOR Routine 06/22/2019 4:45 Results for this PM EST procedure are in the results section. HC GLUCOSE, BY MONITOR Routine 06/22/2019 12:06 Results for this PM EST procedure are in the results section. HC GLUCOSE, BY MONITOR Routine 06/22/2019 7:43 Results for this AM EST procedure are in the results section. COMPREHENSIVE METABOLIC Routine 06/22/2019 6:38 Results for this PANEL AM EST procedure are in the results section. HC GLUCOSE, BY MONITOR Routine 06/21/2019 9:16 Results for this PM EST procedure are in the results section. HC GLUCOSE, BY MONITOR Routine 06/21/2019 5:38 Results for this PM EST procedure are in the results section. URINE DRUG SCREEN Routine 06/21/2019 10:41 Results for this AM EST procedure are in the results section. CT ABDOMEN PELVIS WITH STAT 06/21/2019 7:40 Results for this IV CONTRAST AM EST procedure are in the results section. CBC WITH DIFFERENTIAL Routine 06/21/2019 6:03 Results for this AM EST procedure are in the results section. RAINBOW DRAW GOLD TOP STAT 06/21/2019 6:03 AM EST MAGNESIUM LEVEL Routine 06/21/2019 6:03 Results for this AM EST procedure are in the results section. LIPASE Routine 06/21/2019 6:03 Results for this AM EST procedure are in the results section. COMPREHENSIVE METABOLIC Routine 06/21/2019 6:03 Results for this PANEL AM EST procedure are in the results section. PROTHROMBIN TIME Routine 06/21/2019 6:03 Results for this AM EST procedure are in the results section. PARTIAL THROMBOPLASTIN Routine 06/21/2019 6:03 Results for this TIME AM EST procedure are in the results section. documented in this encounter Results GLUCOSE (POCT) (06/23/2019 12:16 PM EST) Glucose POCT 111 (H) 70 - 99 mg/dl POINT OF CARE Result Comment: TESTING Performed at: [facility] POCT Carlito Gomez MD, Laboratory Director Of Land Acquisition [address] [address] Specimen Performing Organization Address [facility] Phone Number POINT OF CARE TESTING GLUCOSE (POCT) (06/23/2019 8:34 AM EST) Glucose POCT 222 (H) 70 - 99 mg/dl POINT OF CARE Result Comment: TESTING Performed at: [facility] POCT Carlito Gomez MD, Laboratory Director Of [employer] [address] [address] Specimen Performing Organization Address City/[facility]/Zipcode Phone Number POINT OF CARE TESTING COMPREHENSIVE METABOLIC PANEL (06/23/2019 6:46 AM EST) Sodium 137 134 - 145 mmol/L [facility] Potassium 3.9 3.5 - 5.1 mmol/L [facility] Chloride 102 98 - 107 mmol/L [facility] CO2 27 22 - 30 mmol/L [facility] Calcium 8.8 8.3 - 10.1 mg/dl [facility] Albumin 3.7 3.5 - 5.0 g/dl [facility] BUN 8 (L) 9 - 20 mg/dl [facility] Creatinine 0.5 (L) 0.8 - 1.5 mg/dl [facility] Glucose 270 (H) 70 - 99 mg/dl [facility] Total Protein 6.9 6.3 - 8.2 g/dl [facility] Total Bilirubin 0.4 0.0 - 1.1 MG/DL [facility] AST 76 (H) 17 - 59 U/L [facility] ALT 91 (H) 21 - 72 U/L [facility] Alkaline 146 40 - 150 U/L [facility] LABORATORY eGFR >60 See Interpretation [facility] Comment: Below ml/min/1.73ml GROUP Estimated GFR Interpretation: Sq LABORATORY Above 60ml/min/1.73m2 = Normal Renal Function 30-59 ml/min/1.73m2 = Stage 3 Chronic Kidney Disease 15-29 ml/min/1.73m2 = Stage 4 Chronic Kidney Disease Less than 15 ml/min/1.73m2 = Stage 5 Chronic Kidney Disease The GFR value is calculated using the Modification of Diet in Renal Disease ( MDRD) Study Equation which can be found at: https://www.kidney.org/content/jntw-nhdvk-maqloeft BUN/Creatinine 16 6 - 22 RATIO [facility] LAB[facility]ORY Anion Gap 8 3 - 11 mmol/L [facility] A/G Ratio 1.2 0.8 - 2.0 ratio [facility] Specimen Blood - Blood specimen (specimen) Performing Organization Address City/State/Zipcode Phone Number [facility] [address] [address] CBC NO DIFFERENTIAL (06/23/2019 5:03 AM EST) WBC Count 10.50 (H)Comment: 4.23 - 9.07 [facility] Methodology was K/uL GROUP [facility]ORY changed 08/08/2018. Please note updated reference range and units. RBC Count 4.74 4.30 - 5.89 [facility]UL [facility] Hemoglobin 14.7 13.7 - 17.5 [facility] g/dL GROUP [facility] Hematocrit 43.7 40.1 - 51.0 % [facility] MCV 92.2 79.0 - 92.2 [facility] FL GROUP [facility] MCH 31.0 25.7 - 32.2 [facility] PG [facility] MCHC 33.6 32.3 - 36.5 [facility] g/dL [facility] Platelet Count 285 163 - 337 [facility] K/uL [facility] MPV 10.3 9.4 - 12.4 FL [facility] RDW 13.1 11.6 - 14.4 % [facility] Specimen Blood - Blood specimen (specimen) Performing Organization Address [facility] Phone Number [facility] [address] [address] GLUCOSE (POCT) (06/22/2019 9:22 PM EST) Glucose POCT 227 (H) 70 - 99 mg/dl POINT OF CARE Result Comment: TESTING Performed at: [facility] POCT Carlito Gomez MD, Laboratory Director Of [employer] [address] [facility] [place] [place] [address] Specimen Performing Organization Address [facility] Phone Number POINT OF CARE TESTING GLUCOSE (POCT) (06/22/2019 4:45 PM EST) Glucose POCT 154 (H) 70 - 99 mg/dl POINT OF CARE Result Comment: TESTING Performed at: [facility] POCT Carlito Gomez MD, Laboratory Director Of [employer] [address] [place] [address] [address] Specimen Performing Organization Address [facility] Phone Number POINT OF CARE TESTING GLUCOSE (POCT) (06/22/2019 12:06 PM EST) Glucose POCT 263 (H) 70 - 99 mg/dl POINT OF CARE Result Comment: TESTING Performed at: [facility] POCT Carlito Gomez MD, Laboratory Director Of [employer] [address] [address] Specimen Performing Organization Address [facility] Phone Number POINT OF CARE TESTING GLUCOSE (POCT) (06/22/2019 7:43 AM EST) Glucose POCT 317 (H) 70 - 99 mg/dl POINT OF CARE Result Comment: TESTING Performed at: [facility] POCT Carlito Gomez MD, Laboratory Director Of [employer] [address] [place] [address] [address] Specimen Performing Organization Address [facility] Phone Number POINT OF CARE TESTING COMPREHENSIVE METABOLIC PANEL (06/22/2019 6:38 AM EST) Sodium 135 134 - 145 mmol/L [facility] Potassium 3.7 3.5 - 5.1 mmol/L [facility] Chloride 104 98 - 107 mmol/L [facility] CO2 21 (L) 22 - 30 mmol/L [facility] Calcium 8.2 (L) 8.3 - 10.1 mg/dl [facility] Albumin 3.7 3.5 - 5.0 g/dl [facility] BUN 8 (L) 9 - 20 mg/dl [facility] Creatinine 0.5 (L) 0.8 - 1.5 mg/dl [facility] Glucose 346 (H) 70 - 99 mg/dl [facility] Total Protein 7.1 6.3 - 8.2 g/dl [facility] Total Bilirubin 0.3 0.0 - 1.1 MG/DL [facility] AST 59 17 - 59 U/L [facility] ALT 76 (H) 21 - 72 U/L [facility] Alkaline 166 (H) 40 - 150 U/L [facility] Phosphatase [facility] eGFR >60 See Interpretation [facility] Comment: Below ml/min/1.73ml GROUP Estimated GFR Interpretation: Sq LABORATORY Above 60ml/min/1.73m2 = Normal Renal Function 30-59 ml/min/1.73m2 = Stage 3 Chronic Kidney Disease 15-29 ml/min/1.73m2 = Stage 4 Chronic Kidney Disease Less than 15 ml/min/1.73m2 = Stage 5 Chronic Kidney Disease The GFR value is calculated using the Modification of Diet in Renal Disease ( MDRD) Study Equation which can be found at: https://www.kidney.org/content/mxto-yizzr-hlwtljcg BUN/Creatinine 16 6 - 22 R[facility] LAB[facility]ORY Anion Gap 10 3 - 11 mmol/L [facility] A/G Ratio 1.1 0.8 - 2.0 ratio [facility] Specimen Blood - Blood specimen (specimen) Performing Organization Address [facility] Phone Number [facility] [address] [address] GLUCOSE (POCT) (06/21/2019 9:16 PM EST) Glucose POCT 188 (H) 70 - 99 mg/dl POINT OF CARE Result Comment: TESTING Performed at: [facility] POCT Carlito Gomez MD, Laboratory Director Of [employer] [address] [place] [address] [address] Specimen Performing Organization Address [facility] Number POINT OF CARE TESTING GLUCOSE (POCT) (06/21/2019 5:38 PM EST) Glucose POCT 275 (H) 70 - 99 mg/dl POINT OF CARE Result Comment: TESTING Performed at: [facility] POCT Carlito Gomez MD, Laboratory Director Of [employer] [address] [place] [address] Specimen Performing Organization Address [facility] Number POINT OF CARE TESTING URINE DRUG SCREEN (06/21/2019 10:41 AM EST) Amphetamines Negative Negative [facility] Barbiturates Negative Negative [facility] Benzodiazepine Negative Negative [facility] Cannabinoids Positive (A) Negative [facility] Cocaine Negative Negative [facility] Methadone Negative Negative [facility] Opiates Positive (A) Negative [facility] Oxycodone Negative Negative [facility] Phencyclidine Negative Negative [facility] Propoxyphene Negative Negative [facility] Specimen Urine - Urine specimen obtained by clean catch procedure (specimen) Narrative Performed At Drug Name [facility] Cut-off Level Amphetamine (AMP/METH) 1000 ng/ml Barbiturates (SENDY) 200 ng/ml Benzodiazepines (POONAM) 200 ng/ml Cannabinoids (THC) 50 ng/ml Cocaine (CHRISTIAN) 300 ng/ml Methadone (MTD) 300 ng/ml Opiates (OPI) 300 ng/ml Oxycodone (OXY) 100 ng/ml Phencyclidine (PCP) 25 ng/ml Propoxyphene (PPX) 300 ng/ml Test results from this drug screen are to be used for medical purposes only. If positive, the sample is presumed to contain detectable drug concentrations equal to or greater than the cut-off concentrations listed above. A positive result indicates the presence of the drug or drug metabolite and does not indicate the level of intoxication or urinary concentration. Confirmation is available upon request to [facility]. Request for confirmation must be made within 5 days of the drug screen result. Performing Organization Address City/State/Zipcode Phone Number [facility] [address] [place] [address] CT ABDOMEN PELVIS WITH IV CONTRAST (06/21/2019 7:40 AM EST) Specimen Impressions Performed At 1. Atrophic pancreas suggesting chronic pancreatitis. Small amount of peripancreatic fluid may represent superimposed acute pancreatitis. 2. Redemonstrated small perisplenic fluid collection, suspicious for complication of pancreatitis. 3. Periportal edema in the liver, nonspecific. Signed by Clifford Aranda on 06/21/2019 8:08 AM Narrative Performed At Procedure: CT ABDOMEN PELVIS WITH IV CONTRAST Date of service: 06/21/2019 7:30 AM History: 44 years, Male, "Abdominal pain, unspecified" Technique: Axial CT images of the abdomen and pelvis with contrast. Coronal and sagittal reformats were also performed. Comparison: 06/08/19, 12/26/17 Findings: The lung bases are clear. There is periportal edema in the liver. Gallbladder is normal. The pancreas is atrophic. Small amount of peripancreatic fluid is seen. The spleen is again atrophic and deformed with a small perisplenic fluid collection. There is no adrenal mass. There is no hydronephrosis or solid renal mass. There are circumaortic left renal veins. There is no bowel obstruction or bowel wall thickening. Appendix is normal. There is no pneumoperitoneum, ascites or lymphadenopathy. The bladder is underdistended with mildly thickened wall. There is excreted contrast in the bladder. Prostate gland has normal size. Seminal vesicles are symmetric. No suspicious bony lesion is identified. Procedure Note Interface, Rad Results - 06/21/2019 8:10 AM EST Procedure: CT ABDOMEN PELVIS WITH IV CONTRAST Date of service: 06/21/2019 7:30 AM History: 44 years, Male, "Abdominal pain, unspecified" Technique: Axial CT images of the abdomen and pelvis with contrast. Coronal and sagittal reformats were also performed. Comparison: 06/08/19, 12/26/17 Findings: The lung bases are clear. There is periportal edema in the liver. Gallbladder is normal. The pancreas is atrophic. Small amount of peripancreatic fluid is seen. The spleen is again atrophic and deformed with a small perisplenic fluid collection. There is no adrenal mass. There is no hydronephrosis or solid renal mass. There are circumaortic left renal veins. There is no bowel obstruction or bowel wall thickening. Appendix is normal. There is no pneumoperitoneum, ascites or lymphadenopathy. The bladder is underdistended with mildly thickened wall. There is excreted contrast in the bladder. Prostate gland has normal size. Seminal vesicles are symmetric. No suspicious bony lesion is identified. IMPRESSION 1. Atrophic pancreas suggesting chronic pancreatitis. Small amount of peripancreatic fluid may represent superimposed acute pancreatitis. 2. Redemonstrated small perisplenic fluid collection, suspicious for complication of pancreatitis. 3. Periportal edema in the liver, nonspecific. Signed by Clifford Aranda on 06/21/2019 8:08 AM LIPASE (06/21/2019 6:03 AM EST) Lipase 84 23 - 300 U/L [facility] Specimen Blood - Blood specimen (specimen) Performing Organization Address City/[facility]/Zipcode Phone Number [facility] [address] [address] [phone] RAINBOW DRAW GOLD TOP (06/21/2019 6:03 AM EST) Specimen Blood - Blood specimen (specimen) Performing Organization Address [facility]/Zipcode Phone Number [employer] [facility] [address] [address] PARTIAL THROMBOPLASTIN TIME (06/21/2019 6:03 AM EST) PTT 25.4Comment: 21.3 - 35.9 SEC [facility] Reference range [facility] updated 05/27/2019. Specimen Blood - Blood specimen (specimen) Performing Organization Address [facility]/Zipcode Phone Number [facility] [facility] [address] [place] [address] [phone] PROTHROMBIN TIME (06/21/2019 6:03 AM EST) INR 1.04Comment: INR 0.88 - 1.13 [facility] Therapeutic Range: Ratio GROUP LAB[facility]ATORY 2.0 - 3.5 Protime 13.4Comment: 12.0 - 14.5 sec [facility] Reference range [facility] updated 05/27/2019. Specimen Blood - Blood specimen (specimen) Performing Organization Address [facility] Phone Number [employer] [facility] [address] [place] [address] CBC WITH DIFFERENTIAL (06/21/2019 6:03 AM EST) WBC Count 10.60 (H) 4.23 - 9.07 K/uL [facility] RBC Count 4.90 4.30 - 5.89 M/UL [facility] Hemoglobin 15.3 13.7 - 17.5 g/dL [facility] Hematocrit 44.0 40.1 - 51.0 % [facility] MCV 89.8 79.0 - 92.2 FL [facility] MCH 31.2 25.7 - 32.2 PG [facility] MCHC 34.8 32.3 - 36.5 g/dL [facility] Platelet Count 327 163 - 337 K/uL [facility] MPV 10.1 9.4 - 12.4 FL [facility] RDW 13.1 11.6 - 14.4 % [facility] Neutrophil % 67.5 34.0 - 67.9 % [facility] Lymphocyte % 24.4 21.8 - 53.1 % [facility] Monocyte % 6.2 5.3 - 12.2 % [facility] Eosinophil % 0.8 0.8 - 7.0 % [facility] Basophil % 0.8 0.2 - 1.2 % [facility] nRBC % 0.0 0.0 - 0.2 % [facility] Neutrophil # 7.14 (H) 1.78 - 5.38 K/UL [facility] Lymphocyte # 2.59 1.32 - 3.57 K/UL [facility] Monocyte # 0.66 0.30 - 0.82 K/UL [facility] Eosinophil # 0.09 0.04 - 0.54 K/UL [facility] Basophil # 0.09 (H) 0.01 - 0.08 K/UL [facility] Immature Gran % 0.3 0.0 - 0.4 % [facility] Immature Gran # 0.03 0.00 - 0.03 K/uL [facility] NRBC # 0.00 0.00 - 0.12 K/uL [facility] Specimen Blood - Blood specimen (specimen) Performing Organization Address [facility] Phone Number [facility] [address] [place] [address] MAGNESIUM LEVEL (06/21/2019 6:03 AM EST) Magnesium 1.6 1.6 - 2.3 MG/DL [facility] Specimen Blood - Blood specimen (specimen) Performing Organization Address [facility] Phone Number [facility] [address] [place] [address] COMPREHENSIVE METABOLIC PANEL (06/21/2019 6:03 AM EST) Sodium 135 134 - 145 mmol/L [facility] Potassium 3.5 3.5 - 5.1 mmol/L [facility] Chloride 104 98 - 107 mmol/L [facility] CO2 21 (L) 22 - 30 mmol/L [facility] Calcium 8.2 (L) 8.3 - 10.1 mg/dl [facility] Albumin 3.7 3.5 - 5.0 g/dl [facility] BUN 11 9 - 20 mg/dl [facility] Creatinine 0.5 (L) 0.8 - 1.5 mg/dl [facility] Glucose 290 (H) 70 - 99 mg/dl [facility] Total Protein 7.2 6.3 - 8.2 g/dl [facility] Total Bilirubin 0.5 0.0 - 1.1 MG/DL [facility] AST 70 (H) 17 - 59 U/L [facility] ALT 79 (H) 21 - 72 U/L [facility] Alkaline 169 (H) 40 - 150 U/L [facility] Phosphatase [facility] eGFR >60 See Interpretation [facility] Comment: Below ml/min/1.73ml GROUP Estimated GFR Interpretation: Sq LABORATORY Above 60ml/min/1.73m2 = Normal Renal Function 30-59 ml/min/1.73m2 = Stage 3 Chronic Kidney Disease 15-29 ml/min/1.73m2 = Stage 4 Chronic Kidney Disease Less than 15 ml/min/1.73m2 = Stage 5 Chronic Kidney Disease The GFR value is calculated using the Modification of Diet in Renal Disease ( MDRD) Study Equation which can be found at: https://www.kidney.org/content/dess-sasls-etgyqlfy BUN/Creatinine 22 6 - 22 RATIO [facility] Anion Gap 10 3 - 11 mmol/L [facility] A/G Ratio 1.1 0.8 - 2.0 ratio [facility] Specimen Blood - Blood specimen (specimen) Performing Organization Address City/State/Zipcode Phone Number [facility] [address] [facility] [place] [id number] documented in this encounter Visit Diagnoses Diagnosis Acute on chronic pancreatitis (HCC) - Primary Abdominal pain, acute Abdominal pain, unspecified site documented in this encounter Administered Medications Medication Order MAR Action Action Date Dose Rate Site enoxaparin (LOVENOX) Given 06/22/2019 8:54 AM 40 mg Abdominal Tissue injection 40 mg/0.4 mL 40 EST mg 40 mg, Subcutaneous, Q24 HRS, 15 doses, First dose on 06/21/19 at 0520, Last dose on 07/05/19 at 0900, Lovenox (enoxaparin): Lovenox is rounded to the nearest 10 mg per hospital policy. - CAUTION & CONSIDER Heparin Xa (anti-Xa levels): CrCl < 30 mL/min; Women < 45 kg; Men < 57 kg; Weight > 150 kg or BMI > 40 kg/m2; , Pediatrics and Elderly patients - Treatment dose: 1 mg/kg q12h - Prophylactic dose: 40 mg q24h OR 30 mg q12h , gabapentin (NEURONTIN) capsule 300 mg Given 06/23/2019 8:38 AM EST 300 mg 300 mg, Oral, TID, First dose on [facility] 06/22/19 at 1130, Until Discontinued Given 06/22/2019 9:25 PM EST 300 mg Given 06/22/2019 4:47 PM EST 300 mg gemfibrozil (LOPID) tablet 600 mg Given 06/23/2019 8:38 AM EST 600 mg 600 mg, Oral, DAILY, First dose on [facility] 06/22/19 at 1130, Until Discontinued Given 06/22/2019 1:52 PM EST 600 mg GLARGINE insulin Given 06/22/2019 8:53 AM EST 10 Units Arm - Upper Right (LONG-Acting) injection 10 Units 10 Units, Subcutaneous, NOW, 1 dose, [facility] 06/22/19 at 0830, NOT FOR IV USE, GLARGINE insulin Given 06/21/2019 9:21 PM EST 20 Units Arm - Upper Right (LONG-Acting) injection 20 Units 20 Units, Subcutaneous, QHS, First dose on 06/21/19 at 2100, Until Discontinued, NOT FOR IV USE, GLARGINE insulin Given 06/23/2019 8:38 AM EST 20 Units Abdominal Tissue (LONG-Acting) injection 20 Units 20 Units, Subcutaneous, NOW, 1 dose, [facility] 06/23/19 at 0800, NOT FOR IV USE, GLARGINE insulin Given 06/22/2019 9:34 PM EST 30 Units Arm - Upper Right (LONG-Acting) injection 30 Units 30 Units, Subcutaneous, QHS, First dose (after last modification) on [facility] 06/22/19 at 2100, Until Discontinued, NOT FOR IV USE, GLARGINE insulin (LONG-Acting) injection 50 Units 50 Units, Subcutaneous, QHS, First dose (after last modification) on Mon at 2100, Until Discontinued, NOT FOR IV USE, glucose (GLUTOSE) oral gel 40 % 1-2 Tube, Oral, PRN, Starting 06/21/19 at 1207, Until Sun06/23/19 at 1600 , blood glucose < ___, Administer for Blood Glucose < 50 and patient eating and alert per hypoglycemia protocol, 15 g dextrose per tube, HOLD MEDICATION Does not apply, AC, First dose on 06/21/19 at 1600, Until Discontinued, Hold meal time rapid/short acting insulin if patient does not eat., HYDROmorphone (DILAUDID) DECAL DECORATOR 0.5 mg/ml 100mL New Bag 06/22/2019 10:39 PM EST Intravenous, DRIP, Starting 06/21/19 at 1000, Until 06/23/19 at 1048, USE CAUTION in diseases where patient is at risk for hypercapnea, including sleep apnea, morbid obesity, COPD and neuromuscular diseases. In patients at risk, consider monitoring ABGs. USE CAUTION where patient is at high-risk for nausea/vomiting. Loading dose: 1 mg Continuous Rate: 0.4 mg/hour Demand Bolus: 0.3 mg Bolus Lockout: 12 minutes B.per 4 hours (number of boluses per 4 hours): 20 Boluses (See separate PRN order for Nurse bolus; do NOT include that PRN in the 4 hour limit unless specified by physician)., Rate Verify 06/22/2019 7:40 PM EST Rate Verify 06/22/2019 7:06 AM EST HYDROmorphone (DILAUDID) tablet 4 mg 4 mg, Oral, TID PRN, Starting 06/23/19 at 1050, Until 06/23/19 at 1600 , Moderate Pain (pain scale 4-6) - PO - 1st line - if immediate effect not required and patient can tolerate PO iohexol (OMNIPAQUE) 350 MG/ML injectable Push 06/21/2019 7:50 AM EST 92 mL solution 92 mL 92 mL, Intravenous, NOW, 1 dose, 06/21/19 at 0750 LISPRO insulin (RAPID - Given 06/22/2019 7:46 AM EST 4 Units Arm - Upper Right Acting) injection 4 Units 4 Units, Subcutaneous, AC, First dose on 06/21/19 at 1600, Until Discontinued, Hold if patient does not eat, patient made NPO or started on continuous feeding., Given 06/21/2019 5:42 PM EST 4 Units Arm - Upper Left LISPRO insulin (RAPID - Given 06/23/2019 12:17 PM EST 8 Units Arm - Upper Right Acting) injection 8 Units 8 Units, Subcutaneous, AC, First dose (after last modification) on 06/22/19 at 1200, Until Discontinued, Hold if patient does not eat, patient made NPO or started on continuous feeding., Given 06/23/2019 8:38 AM EST 8 Units Abdominal Tissue Given 06/22/2019 4:49 PM EST 8 Units Arm - Upper Left LISPRO insulin (RAPID-Acting) Given 06/23/2019 8:39 AM 4 Units Abdominal Tissue USUAL Correction Scale Inj EST Subcutaneous, AC/HS, First dose on 06/21/19 at 1600, Until Discontinued, Blood Glucose USUAL <=150 0 Units 151-200 2 Units 201-250 4 Units 251-300 6 Units 301-350 8 Units 351-400 10 Units >400 12 Units And Call Quill Buncher And Sorter Not for IV USE, Given 06/22/2019 9:25 PM EST 4 Units Arm - Upper Left Given 06/22/2019 4:49 PM EST 2 Units Arm - Upper Left morphine (PF) syringe 2 mg Given 06/21/2019 8:12 AM EST 2 mg 2 mg, Intravenous Push, Q4 HRS PRN, Starting 06/21/19 at 0328, Until 06/21/19 at 0857, Severe Pain (pain scale 7-10)IV 2nd line - if immediate effect required or cannot tolerate PO & no still has severe pain 1 hr after admin of 1st line agent or did not tolerate 1st line agent Given 06/21/2019 3:41 AM EST 2 mg normal saline IV Rate Verify 06/22/2019 7:07 AM EST 125 mL/hr Intravenous, at 125 mL/hr, CONTINUOUS, Starting 06/21/19 at 0520, Until [facility] 06/22/19 at 1122 New Bag 06/21/2019 7:50 PM EST 125 mL/hr Rate Verify 06/21/2019 8:09 AM EST 125 mL/hr normal saline IV New Bag 06/23/2019 5:19 AM EST 175 mL/hr Intravenous, at 175 mL/hr, CONTINUOUS, Starting 06/22/19 at 1130, Until 06/23/19 at 1048 New Bag 06/22/2019 11:31 PM EST 175 mL/hr New Bag 06/22/2019 11:51 AM EST 175 mL/hr ondansetron (ZOFRAN) injection 4 mg Given 06/22/2019 6:45 AM EST 4 mg 4 mg, Intravenous Push, Q8 HRS PRN, Starting 06/21/19 at 0329, Until 06/23/19 at 1600, Nausea/Vomiting - IV - 1st line - If immediate effect required or patient cannot tolerate PO Given 06/21/2019 3:41 AM EST 4 mg pancrelipase ([id number]) (ZENPEP) Given 06/23/2019 12:17 PM EST 5,000 Units 5-24-17 thousand units delayed release 5,000 Units 5,000 Units (1 Cap), Oral, TID WITH MEALS, First dose on 06/22/19 at 1200, Until Discontinued, Do NOT administer through tube. For that purpose, consider CREON brand pancrelipase., Given 06/23/2019 8:39 AM EST 5,000 Units Given 06/22/2019 4:47 PM EST 5,000 Units pantoprazole (PROTONIX) enteric coated tablet Given 06/23/2019 5:24 AM EST 40 mg 40 mg 40 mg, Oral, PRE BREAKFAST, First dose on 06/22/19 at 1130, Until Discontinued, This medication dosage form should NOT be crushed. Please call the inpatient Pharmacy for more information. [facility] ext. [phone] [place] [address]. [phone] [facility] ext. [phone] , Given 06/22/2019 1:55 PM EST 40 mg documented in this encounter Insurance Payer Benefit Plan / Subscriber ID Effective Dates Phone Address Type Group MEDICAID MEDICAID xxxxxxxx [place] all dates Guarantor Name Account Type Relation to Date of Phone Billing Patient Address Ryder Chinchilla Personal/Family 1975 [address] (Home) . [phone] [place], [place] (Work) [id number] documented as of this encounter Advance Directives Code Status Date Activated Date Inactivated Comments Full Code 06/21/2019 4:16 AM Does the patient have decision making capacity? Yes Order was discussed with: Patient I discussed all options and patient/surrogate requested and agreed to: Full Code Full Code 06/09/2019 5:04 AM 06/21/2019 2:50 AM Does the patient have decision making capacity? Yes Order was discussed with: Patient I discussed all options and patient/surrogate requested and agreed to: Full Code
[2019-08-11] MEDS ORDERED: Dextrose 50% VIAL 50 ml IV PUSH PRN (02:06)
[2019-08-11] MEDS: HYDROmorphone INJ1* 1 MG/ML SYRINGE IV SLOW PU PRN ×5 (02:22→21:58)
[2019-08-11] MEDS: Ondansetron INJ* 2 MG/ML VIAL IV PRN ×5 (04:12→22:02)
[2019-08-11 05:31] LABS: Albumin 3.4 g/dL (3.2-5.2); Albumin/Globulin Ratio 1.5 (1-3); BUN/Creatinine Ratio 18.8 (8-20); EGFR African American 165.2 (>60); EGFR Non-African American 136.5 (>60); Globulin 2.3 g/dL (2-4); Total Bilirubin 0.4 mg/dL (0.2-1.0); Total Protein 5.7 g/dL (6.4-8.9)
[2019-08-11 05:47] LABS: Potassium 3.4 mmol/L (3.5-5.0)
[2019-08-11 05:48] LABS: Indirect Bilirubin 0.3 mg/dL (0.3-1.0)
[2019-08-11] MEDS: NS 0.9% 1000 ML** 1,000 ML IV SCH ×2 (07:00→18:06)
[2019-08-11] MEDS: Insulin LISPRO* 1 UNITS UNIT SUBCUT SCH ×4 (08:07→21:28)
--- NOTE | 2019-08-11 09:27 | HP ---
ADMISSION HISTORY AND PHYSICAL: DATE OF ADMISSION: 08/11/19 PRIMARY CARE DOCTOR: Dr. Heller. DIRECTOR OF CONTRACTS: Dr. Jade. HEALTHCARE PROXY: . CODE STATUS: Full. SOURCE OF INFORMATION: History obtained from interview with the patient. Please note the patient's charts have not been merged. You must search his name in order to find his other chart with pertinent information from previous hospital stays. RELIABILITY: Fair to poor. CHIEF COMPLAINT: Abdominal pain, nausea, vomiting, weight loss. 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 He tried to go longer over the holidays and now is coming in feeling much worse. He feels that he has decreased his weight from about 175 to 148 pounds in the last month associated with constant abdominal pain, which is noted to be a problem from previous records. He notes he vomits all of his meals including liquids at least 3 times a day. He feels that his pain has been getting worse. He has been vomiting more frequently and his weight has been declining. For this reason, he sought care in the emergency room today. He was last at [facility] in April also with abdominal pain, at which time a CAT scan was performed. He reports he was last hospitalized in [place] 3 weeks prior to presentation with hyperglycemia, nausea, vomiting, abdominal pain. He reports imaging during that hospital stay, but cannot tell me much about his medical history, his home medications or the care he has received at other hospitals other than he has had multiple workups and he has been recommended to follow up with a digestion specialist, but has not been formally referred to. He reports his glucose usually runs in 200 to 300s, today was noted to be higher. Because of the increased abdominal pain, continued nausea, vomiting, weight loss, he presented to the emergency room today. He denies any fevers, chills, or night sweats, cough, shortness of breath, shaking chills. He reports he has not seen Dr. Heller in quite some time nor has he seen Dr. Jade, but he does get his medication refills through both. In regards to the elevated blood sugar at home, he reports he does not call for adjustments in his medications. He currently takes Lantus 25 twice daily with Humalog sliding scale, which he reports the highest dose on that sliding scale was about 18 units. PAST MEDICAL HISTORY: Includes chronic pancreatitis complicated by necrotizing pancreatitis, splenic necrosis 2013, functional asplenia, familial hypertriglyceridemia, insulin-dependent type 2 diabetes mellitus, no enlarged pancreatic pseudocyst. FAMILY HISTORY: Father with type 2 diabetes. Mother at 54 from an [place]. SOCIAL HISTORY: Half a pack a day for 30 years of tobacco. Lives with his . He is unemployed. MEDICATIONS: The patient cannot tell me his medications. He does indicate he takes: 1. Lantus 25 twice daily. 2. Humalog with a sliding scale. 3. Gemfibrozil. 4. Creon. 5. Dilaudid 4 mg every 4 hours, although I-STOP cannot confirm this current dose. ALLERGIES: No known drug allergies. REVIEW OF SYSTEMS: As per HPI, otherwise difficult to obtain as the patient is moaning in pain, otherwise all other systems negative. PHYSICAL EXAMINATION GENERAL: Lying flat, moaning pain, although interactive. VITAL SIGNS: In the emergency room, 126/82, heart rate 76, respiratory rate 20 , he is 95% on room air, T-max 98.6. HEENT: His oropharynx is clear. His dry mucous membranes are clear. Anicteric. LUNGS: His lungs are clear. HEART: He has a regular rate and rhythm. ABDOMEN: Soft, nondistended, painful to soft palpation throughout. Positive bowel sounds, although hypoactive. EXTREMITIES: Warm and well perfused without clubbing, cyanosis, or edema. NEUROLOGIC: He is alert and oriented x3. His cranial nerves are intact. DIAGNOSTIC STUDIES/LAB DATA: Labs reviewed: Triglycerides are 2210, lipase is 76, ALT 156, alk phos is 217, AST was not performed. Sodium 129, chloride 93 , BUN 16, creatinine 0.92, glucose 514, lactic acid is 0.9, white blood cell count is 8, serum alcohol is less than 10. Chest x-ray: No active cardiopulmonary disease. EKG: Normal sinus rhythm. No ST or T-wave changes. ASSESSMENT AND PLAN: This is a 44-year-old man with past medical history of chronic pain, history of chronic pancreatitis secondary to familial hypertriglyceridemia, presenting with nausea, vomiting, continued abdominal pain , hyperglycemia. 1. Hyperglycemia. No evidence of acidosis on VBG, more consistent with hyperosmolar hyperglycemic state; however, the patient does not appear dehydrated just based on his clinical exam and has preserved kidney function. He received 10 units of regular insulin in the emergency room with improvement in his blood sugar from 514 to 371. Unfortunately, it is very difficult for him to have potassiums run because of his elevated triglycerides. Potassium does have to be run on whole blood drawn in an ionized calcium tube which is the green top. This does require the pathologist approval, which I am pending at this time. I hesitate to put him on an insulin drip without being able to accurately monitor his serum potassium. He had good response to 10 units of regular insulin and I will give him another 10 units of insulin now regular with plan to start Lantus 25 units twice daily tomorrow with his insulin sliding scale. Hemoglobin A1c is pending. I placed a consultation for Endocrinology for assistance in the management of this patient's hyperglycemia. 2. Transaminitis, elevated ALT and alk phos. The test was not performed for AST. Repeat in the morning. His alcohol is negative. 3. Pseudohyponatremia in the setting of hyperglycemia, repeat in the morning. 4. Abdominal pain. The patient has chronic abdominal pain. He reports that he takes a fairly large amount of Dilaudid daily; however, this is not corroborated by I-STOP. He most recently received the prescription for hydromorphone for 10-day supply in June, prior to that was on Suboxone. He did receive morphine in the emergency room. I will continue Dilaudid going forward; however, I suspect this would be difficult pain management during this hospital stay. May require pain management consultation during this hospital stay. 5. Tobacco use. The patient is declining patch. 6. Nausea, vomiting. Suspect in the setting of hyperosmolar hyperglycemic state versus hyperglycemia, also potentially in setting of continued pain. The patient does not appear clinically as dehydrated as would suggest vomiting every meal including liquids for multiple weeks, again preserved renal function. He received 3 L of normal saline in the emergency room. We will continue 100 cc/hour for 2 additional liters. Not reimaging abdomen at this time. Most recent imaging was April here. He reports imaging 3 weeks ago at [facility], which I have requested the records. 7. Hypertriglyceridemia. Continue gemfibrozil. May consider Gastroenterology consultation. Unclear what the true course of his illness has been. I do think he needs more longitudinal care when he is not actively sick and in the hospital to manage this difficult problem. 8. DVT prophylaxis. Low risk, ambulate ad colin. [id number]/[facility] #: [id number] JARAD
[2019-08-11] MEDS: Sucralfate TAB* 1 GM PO SCH ×3 (10:07→17:54)
[2019-08-11] MEDS: Insulin GLARGINE(*) 1 UNITS UNIT SUBCUT SCH ×2 (10:07→21:29)
[2019-08-11] MEDS: Gemfibrozil TAB* 600 MG PO SCH ×2 (10:08→20:07)
[2019-08-11] MEDS: Ursodiol CAP* 300 MG PO SCH ×2 (10:08→20:07)
[2019-08-11] MEDS: PANCRELIPASE 3000 UNIT PO SCH ×2 (10:08→11:45)
[2019-08-11] MEDS ORDERED: Potassium Chlor TAB* 20 MEQ TAB.ER PO ONE (10:49)
--- NOTE | 2019-08-11 11:39 | PN ---
Progress Note - Progress Note Date of Service: 08/11/19 Note: Ryder is seen now for a brief follow up after his admission early this AM. He states he still feels very poorly. He continues to have severe abdominal pain and nausea. He does however want more than clear liquids. On exam his HR is regular, lungs are clear anteriorly. Abdomen is flat and soft. He winces to minimal palpation in all quadrants but more so when I palpate the RUQ. Dr. Jade to consult for diabetes management. I have consulted Dr. Crenshaw for pain management. I suspect he is not likely to have much improvement in his overall condition.
[2019-08-11] MEDS ORDERED: HYDROmorphone INJ1* 1 MG/ML SYRINGE IV SLOW PU ONE (14:55)
--- NOTE | 2019-08-11 17:22 | CONSULT ---
Consult Consult: August 11, 2019 INPATIENT PAIN CONSULTATION Ryder Chinchilla is a 44 year old whom I met in June,. He was diagnosed with diabetes when he was 25 years old. He drank heavily in his 20's and developed pancreatititis, as a result. He had recurrent episodes of pancreatitis and quit drinking in 2002 when he was incarcerated. He had a surgery for a necrotic part of the pancreas in 2013 and had a second surgery for a partial splenectomy and removal of more of the pancreas. He has been insulin dependent and has been on Pancrease, now on Pancrealipase. He has had difficulty with triglycerides. 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 He was referred to [facility]. He had been getting Suboxone from Jody Harris at [facility]. He says he tapered himself off Suboxone and stopped going to [facility]. He went to a Pain Clinic at [facility] and had a celiac plexus block on 06/12/19. Apparently he got only a few hours of relief. He went to [facility] ER on 06/21/19 and was complaining of severe abdominal pain. He was having watery diarrhea. He was sent to [facility]. They hydrated him and sent him home. GI apparently saw him and recommended conservative measures. He has lost a deal of weight since I last saw him, and has had repeated hospitalizations for flares of abdominal pain and N/V. PAST MEDICAL HISTORY: Chronic pancreatitis, Diabetes, alcohol abuse Allergies Allergy/AdvReac Type Severity Reaction Status Date / Time acetaminophen [From Tylenol] AdvReac Intermediate GI Upset Verified 08/11/19 12: 59 codeine AdvReac Intermediate GI Upset Verified 08/11/19 12:59 ibuprofen AdvReac Intermediate GI Upset Verified 08/11/19 12:59 Current Medications Dextrose (Dextrose 50% Vial 50 Ml*) 25 ml IV PUSH .FOR FS < 60 - SS PRN PRN Reason: FS < 60 Gemfibrozil (Lopid Tab*) 600 mg PO BID JENNIFER Last Admin: 08/11/19 10:08 Dose: 600 mg Hydromorphone HCl (Dilaudid Inj1s*) 2 mg IV SLOW PU Q4H PRN PRN Reason: PAIN - SEVERE Last Admin: 08/11/19 11:44 Dose: 2 mg Sodium Chloride (Ns 0.9% 1000 Ml) 1,000 mls @ 125 mls/hr IV PER RATE [facility] Stop: 08/12/19 10:14 Last Admin: 08/11/19 07:00 Dose: 125 mls/hr Insulin Glargine (Lantus(*)) 25 units SUBCUT Q12H [facility] Last Admin: 08/11/19 10:07 Dose: 25 unit Insulin Human Lispro (Humalog*) 0 units SUBCUT ACHS [facility]; Protocol Last Admin: 08/11/19 12:34 Dose: 9 unit Ondansetron HCl (Zofran Inj*) 4 mg IV Q4H PRN PRN Reason: NAUSEA/VOMITING Last Admin: 08/11/19 15:09 Dose: 4 mg Pancrelipase (Zenpep Delayed Cap*) 5,000 units PO TID WITH MEALS [facility] Sucralfate (Carafate*) 1 gm PO AC [facility] Last Admin: 08/11/19 11:44 Dose: 1 gm Ursodiol (Actigall Cap*) 300 mg PO BID [facility] Last Admin: 08/11/19 10:08 Dose: 300 mg SOCIAL HISTORY: Smokes cigarettes, denies alcohol. Marijuana use rare but it helps. Can't smoke MJ as it would violate parole Vital Signs Temp Pulse Resp BP Pulse Ox 98.5 F 73 16 108/74 98 08/11/19 15:41 08/11/19 15:41 08/11/19 15:41 08/11/19 15:41 08/11/19 15:41 EXAM: GENERAL: A&O. LUNGS: Clear to auscultation HEART: reg rhythm ABDOMEN: Soft. tender EXTREMITIES: normal tone ASSESSMENT: 1. Chronic Pancreatitis 2. Abdominal Pain PLAN: He is at high risk for traditional opioids after the current crisis settles down. He unfortunately didn't like Suboxone and wasn't eager to try Methadone. Will order Ensure nutritional supplements.
[2019-08-11] MEDS: Pancrelipase CAP* 5,000 UNITS CAP PO SCH (17:55)
[2019-08-12] MEDS: Ondansetron INJ* 2 MG/ML VIAL IV PRN ×6 (02:44→23:16)
[2019-08-12] MEDS: HYDROmorphone INJ1* 1 MG/ML SYRINGE IV SLOW PU PRN ×6 (02:44→23:16)
[2019-08-12] MEDS: Insulin GLARGINE(*) 1 UNITS UNIT SUBCUT SCH ×2 (09:59→20:25)
[2019-08-12] MEDS: Insulin LISPRO* 1 UNITS UNIT SUBCUT SCH ×4 (10:00→20:25)
[2019-08-12] MEDS: Ursodiol CAP* 300 MG PO SCH ×2 (10:01→20:25)
[2019-08-12] MEDS: Gemfibrozil TAB* 600 MG PO SCH ×2 (10:01→20:25)
[2019-08-12] MEDS: Pancrelipase CAP* 5,000 UNITS CAP PO SCH ×3 (10:01→17:17)
[2019-08-12] MEDS: Sucralfate TAB* 1 GM PO SCH ×3 (10:01→17:17)
--- NOTE | 2019-08-12 13:35 | PN ---
Subjective Date of Service: 08/12/19 Interval History: Mr. Chinchilla is still feeling poor. He is very hungry. Was able to tolerate some toast this morning without any increase in pain or N/V. Has had 3 loose BMs in an 8 hour period which is "good" for him. He reports 35lb weight loss in the last week d/t pain and N/V. Pain is mostly upper abdominal, radiating to his back. Denies CP or SOB. No concerns from nursing. Family History: Unchanged from Admission Social History: Unchanged from Admission Past Medical History: Unchanged from Admission Objective Active Medications: Dextrose (Dextrose 50% Vial 50 Ml*) 25 ml IV PUSH .FOR FS < 60 - SS PRN FS < 60 Gemfibrozil (Lopid Tab*) 600 mg PO BID JENNIFER Hydromorphone HCl (Dilaudid Inj1s*) 2 mg IV SLOW PU Q4H PRN PAIN - SEVERE Insulin Glargine (Lantus(*)) 25 units SUBCUT Q12H JENNIFER Insulin Human Lispro (Humalog*) 0 units SUBCUT ACHS JENNIFER; Protocol Ondansetron HCl (Zofran Inj*) 4 mg IV Q4H PRN NAUSEA/VOMITING Pancrelipase (Zenpep Delayed Cap*) 5,000 units PO TID WITH MEALS JENNIFER Sucralfate (Carafate*) 1 gm PO AC JENNIFER Ursodiol (Actigall Cap*) 300 mg PO BID JENNIFER Vital Signs - 8 hr 08/12/19 08/12/19 08/12/19 06:50 09:33 10:01 Temperature 98.5 F Pulse Rate 70 Respiratory 16 16 16 Rate Blood Pressure 136/84 (mmHg) O2 Sat by Pulse 100 Oximetry Oxygen Devices in Use Now: None Appearance: Middle-aged male sitting in bed, grimacing, in NAD; appears much older than stated age Neck: NL Appearance and Movements; NL JVP, Trachea Midline Respiratory: Symmetrical Chest Expansion and Respiratory Effort, Clear to Auscultation Cardiovascular: NL Sounds; No Murmurs; No JVD Abdominal: - - Soft, tender throughout Extremities: No Edema Neurological: Alert and Oriented x 3 Lines/Tubes/Other Access: Clean, Dry and Intact Peripheral IV Result Diagrams: 08/10/19 22:50 08/11/19 04:57 Assess/Plan/Problems-Billing Assessment: Mr. Chinchilla is a 44 yo M with PMH of chronic pancreatitis complicated by necrotizing pancreatitis, asplenia, familial hypertriglyceridemia, DM2; who presented to the ED with c/o abdominal pain, N/V. - Patient Problems (1) Abdominal pain Code(s): R10.9 - UNSPECIFIED ABDOMINAL PAIN Comment: - Acute on chronic - LUQ and RUQ, band-like, radiating to the back - Sounds like typical pain r/t pancreatitis, but patient reports this pain is different for him - Appreciate Pain consult; advises against opioids; did not like Suboxone and not willing to try methadone - Check CT abd/pelvis today - Continue hydromorphone (acutely only) (2) Nausea and vomiting Code(s): R11.2 - NAUSEA WITH VOMITING, UNSPECIFIED Comment: - Patient reports 35 lb weight loss in the last week; old records show a 40 lb weight loss since October 2018 - Able to tolerate breakfast without any vomiting - Recent hospitalizations at [facility] for the same; awaiting records - Continue Zofran (3) Diabetes mellitus Code(s): E11.9 - TYPE 2 DIABETES MELLITUS WITHOUT COMPLICATIONS Comment: - Hyperglycemia on admission, now improved - Difficult to obtain true A1c d/t elevated triglycerides (likely closer to 15%) - Appreciate Endocrine consult - Continue Lantus, Lispro SS (4) Hypertriglyceridemia Code(s): E78.1 - PURE HYPERGLYCERIDEMIA Comment: - Continue gemfibrozil (5) DVT prophylaxis Comment: - Ambulation (6) Full code status Code(s): Z78.9 - OTHER SPECIFIED HEALTH STATUS Comment: Status and Disposition: Inpatient. Anticipate d/c home when medically stable. Attending: Azael Olvera
[2019-08-12] MEDS ORDERED: Iodixanol 320 (CONTRAST) 100 ML SDV IV ONE (15:07)
[2019-08-13] MEDS: Ondansetron INJ* 2 MG/ML VIAL IV PRN ×3 (03:32→11:55)
[2019-08-13] MEDS: HYDROmorphone INJ1* 1 MG/ML SYRINGE IV SLOW PU PRN ×3 (03:32→11:55)
[2019-08-13 07:53] LABS: Albumin 3.7 g/dL (3.2-5.2); CO2 Carbon Dioxide 24 mmol/L (22-32); Calcium 9.4 mg/dL (8.6-10.3); Chloride 103 mmol/L (101-111); Sodium 137 mmol/L (135-145)
[2019-08-13] MEDS: Insulin LISPRO* 1 UNITS UNIT SUBCUT SCH ×2 (07:53→12:08)
[2019-08-13] MEDS: Sucralfate TAB* 1 GM PO SCH ×2 (07:57→11:55)
[2019-08-13 07:59] VITALS: BP 122/83
[2019-08-13 07:59] LABS: ALT 97 U/L (7-52); Albumin/Globulin Ratio 1.4 (1-3); Alkaline Phosphatase 157 U/L (34-104); BUN/Creatinine Ratio 10.1 (8-20); Blood Urea Nitrogen 7 mg/dL (6-24); EGFR African American 151.4 (>60); EGFR Non-African American 125.1 (>60); Globulin 2.6 g/dL (2-4); Glucose 90 mg/dL (70-100); Total Protein 6.3 g/dL (6.4-8.9)
[2019-08-13 08:01] LABS: Anion Gap 10 mmol/L (2-11)
[2019-08-13] MEDS: Insulin GLARGINE(*) 1 UNITS UNIT SUBCUT SCH (09:07)
[2019-08-13 09:11] LABS: Potassium Redraw 3.5 mmol/L (3.5-5.0)
[2019-08-13] MEDS: Pancrelipase CAP* 5,000 UNITS CAP PO SCH ×2 (09:51→11:56)
[2019-08-13] MEDS: Ursodiol CAP* 300 MG PO SCH (09:51)
[2019-08-13] MEDS: Gemfibrozil TAB* 600 MG PO SCH (09:51)
--- NOTE | 2019-08-13 12:33 | CONSULT ---
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 He was last seen in my clinic in April 2018. Despite well-documented glycemic control during this and prior hospital stay, he has been unable to maintain glycemic control at home with a basal + correction insulin regimen. A1c >>10% and progressive weight loss since 2013 suggests non-adherence to medications, pancreatic diet, diabetes monitoring and follow-up as the cause of his clinical syndrome. His insulin requirement is approximately 80 units/day, which can be given as once- daily Lantus plus carbohydrate-based dosing with meals, as below. He is not a candidate for an insulin pump until A1c is <10%, but he may benefit from a CGM, if available. PLAN: - change Lantus to 15 units tonight - change Lantus to 40 units once daily starting tomorrow - change Humalog to 2 units per 15g carbohydrates - change Humalog sliding scale to 2 units/50 for BG>200mg/dL - follow-up at [facility] in 2-3 weeks SUBJECTIVE: History of Present Illness: 44 yo M with insulin-deficient diabetes, now admitted for abdominal pain. See admission note for details. Briefly, he has chronic abdominal pain related to prior episodes of severe pancreatitis, but has experienced worsening pain and food intolerance in the past several months since his most recent admission to this hospital in April 2019. He reports that he is afraid to eat, although he is hungry and continues to lose weight ( 25lbs in 1 month). He has been admitted to other hospitals in the region, but has been akik-tj-[id number]-up from primary and specialty care since 2018. 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 - insulin-deficient diabetes mellitus Medications Prior to Admission: Gemfibrozil TAB* [Lopid TAB*] 600 mg PO TID 12/23/17 [History Confirmed ] Pancrelipase (NF) [Creon (NF)] 36,000 units PO TID WITH MEALS 04/29/19 [History Confirmed 08/13/19] Insulin Glargine,Hum.rec.anlog [Lantus] 25 unit SUBCUT BID 08/10/19 [History Confirmed 08/13/19] Insulin Lispro [Humalog] 0 unit SUBCUT TID 08/10/19 [History Confirmed 08/10/19] Gabapentin CAP(*) [Neurontin 300 CAP(*)] 300 mg PO TID 08/13/19 [History Confirmed 08/13/19] Insulin GLARGINE(*) [Lantus(*)] 30 units PO BEDTIME 08/13/19 [History Confirmed 08/13/19] Ondansetron ODT TAB* [Zofran 4 MG Odt TAB*] 4 mg PO Q6H PRN #30 tab.odt [Rx] Prochlorperazine 10 mg TAB [Compazine 10 mg TAB] 10 mg PO Q6H PRN #30 tab [Rx] Inpatient Medications: Dextrose (Dextrose 50% Vial 50 Ml*) 25 ml IV PUSH .FOR FS < 60 - SS PRN PRN Reason: FS < 60 Gemfibrozil (Lopid Tab*) 600 mg PO BID [facility] Last Admin: 08/13/19 09:51 Dose: 600 mg Hydromorphone HCl (Dilaudid Inj1s*) 2 mg IV SLOW PU Q4H PRN PRN Reason: PAIN - SEVERE Last Admin: 08/13/19 11:55 Dose: 2 mg Insulin Glargine (Lantus(*)) 25 units SUBCUT Q12H [facility] Last Admin: 08/13/19 09:07 Dose: 25 unit Insulin Human Lispro (Humalog*) 0 units SUBCUT [facility]; Protocol Last Admin: 08/13/19 12:08 Dose: 9 unit Ondansetron HCl (Zofran Inj*) 4 mg IV Q4H PRN PRN Reason: NAUSEA/VOMITING Last Admin: 08/13/19 11:55 Dose: 4 mg Pancrelipase (Zenpep Delayed Cap*) 5,000 units PO TID WITH MEALS [facility] Last Admin: 08/13/19 11:56 Dose: 5,000 units Sucralfate (Carafate*) 1 gm PO AC [facility] Last Admin: 08/13/19 11:55 Dose: 1 gm Ursodiol (Actigall Cap*) 300 mg PO BID [facility] Last Admin: 08/13/19 09:51 Dose: 300 mg Allergies/Intolerances: acetaminophen, codeine, ibuprofen Social History: Lives with at same residency for >6 months. Has been incarcerated in the past 12 months. Denies alcohol or tobacco, but admits to marijuana use for chronic pain. Family History: Non-contributory. Review of Systems: As above. 8 system review is otherwise negative. OBJECTIVE: Temp Pulse Resp BP Pulse Ox 98.2 F 76 18 122/83 98 08/13/19 07:49 08/13/19 07:49 08/13/19 11:55 08/13/19 07:49 08/13/19 07:49 General: alert, pleasant, oriented, no distress ENT: neck supple, no thyromegaly, no bruit is heard Chest: CTAB, no wheezing or crackles CV: RRR, no murmur Abdomen: soft, non-tender Extremities: no edema, distal pulses intact Skin: warm, dry, no rash Neuro: grossly intact motor/sensory in extremities Psych: restricted affect, pleasant Labs: WBC 8.0 10^3/uL (3.5-10.8) 08/10/19 22:50 RBC 5.31 10^6 /uL (4.18-5.48) 08/10/19 22:50 Hgb 16.7 g/dL (14.0-18.0) 08/10/19 22:50 Hct 50 % (42-52) 08/10/19 22:50 MCV 93 fL (80-94) 08/10/19 22:50 MCH 31 pg (27-31) 08/10/19 22:50 MCHC 33 g/dL (31-36) 08/10/19 22:50 RDW 15 % (10-15) 08/10/19 22:50 Plt Count 261 10^3/uL (150-450) 08/10/19 22:50 MPV 9.6 fL (7.4-10.4) 08/10/19 22:50 Neut % (Auto) 62.9 % 08/10/19 22:50 Lymph % (Auto) 24.1 % 08/10/19 22:50 Edgar % (Auto) 10.5 % 08/10/19 22:50 Eos % (Auto) 1.8 % 08/10/19 22:50 Baso % (Auto) 0.7 % 08/10/19 22:50 Absolute Neuts (auto) 5.1 10^3/ul (1.5-7.7) 08/10/19 22:50 Absolute Lymphs (auto) 1.9 10^3/ul (1.0-4.8) 08/10/19 22:50 Absolute Monos (auto) 0.8 10^3/ul (0-0.8) 08/10/19 22:50 Absolute Eos (auto) 0.1 10^3/ul (0-0.6) 08/10/19 22:50 Absolute Basos (auto) 0.1 10^3/ul (0-0.2) 08/10/19 22:50 Absolute Nucleated RBC 0.1 10^3/ul 08/10/19 22:50 Nucleated RBC % 0.8 08/10/19 22:50 VBG pH 7.50 (7.32-7.43) H 08/10/19 23:37 VBG pCO2 43 mmHg (41-51) 08/10/19 23:37 VBG pO2 51.0 mmHg (35-45) H 08/10/19 23:37 VBG HCO3 31.6 mmol/L (24-28) H 08/10/19 23:37 VBG O2 Saturation 91.8 % (70-80) H 08/10/19 23:37 VBG Base Excess 9.2 mmol/L (0.0-4.0) H 08/10/19 23:37 Sodium 137 mmol/L (135-145) 08/13/19 06:50 Potassium 3.5 mmol/L (3.5-5.0) 08/13/19 08:24 Chloride 103 mmol/L (101-111) 08/13/19 06:50 Carbon Dioxide 24 mmol/L (22-32) 08/13/19 06:50 Anion Gap 10 mmol/L (2-11) 08/13/19 06:50 BUN 7 mg/dL (6-24) 08/13/19 06:50 Creatinine 0.69 mg/dL (0.67-1.17) 08/13/19 06:50 Est GFR ( Amer) 151.4 (>60) 08/13/19 06:50 Est GFR (Non-Af Amer) 125.1 (>60) 08/13/19 06:50 BUN/Creatinine Ratio 10.1 (8-20) 08/13/19 06:50 Glucose 90 mg/dL (70-100) 08/13/19 06:50 POC Glucose (mg/dL) 261 mg/dL (70-100) H 08/13/19 12:02 Glucose Meter Confirm 508 mg/dL (70-100) H* 08/10/19 22:53 Hemoglobin A1c 15.8 % (4.0-5.6) H 08/11/19 04:54 Lactic Acid 0.9 mmol/L (0.5-2.0) 08/10/19 22:50 Calcium 9.4 mg/dL (8.6-10.3) 08/13/19 06:50 Total Bilirubin 0.60 mg/dL (0.2-1.0) 08/13/19 06:50 Direct Bilirubin 0.10 mg/dL (0.03-0.18) 08/11/19 04:57 Indirect Bilirubin 0.3 mg/dL (0.3-1.0) 08/11/19 04:57 AST 53 U/L (13-39) H 08/13/19 08:24 ALT 97 U/L (7-52) H 08/13/19 06:50 Alkaline Phosphatase 157 U/L (34-104) H 08/13/19 06:50 C-Reactive Protein 4.60 mg/L (<8.01) 08/10/19 23:37 Total Protein 6.3 g/dL (6.4-8.9) L 08/13/19 06:50 Albumin 3.7 g/dL (3.2-5.2) 08/13/19 06:50 Globulin 2.6 g/dL (2-4) 08/13/19 06:50 Albumin/Globulin Ratio 1.4 (1-3) 08/13/19 06:50 Triglycerides 2210 mg/dL 08/10/19 23:37 Lipase 76 U/L (11.0-82.0) 08/10/19 23:37 Urine Color Straw 08/11/19 00:25 Urine Appearance Clear 08/11/19 00:25 Urine pH 6.0 (5-9) 08/11/19 00:25 Ur Specific [place] 1.032 (1.010-1.030) H 08/11/19 00:25 Urine Protein Negative (Negative) 08/11/19 00:25 Urine Ketones Trace (Negative) A 08/11/19 00:25 Urine Blood Negative (Negative) 08/11/19 00:25 Urine Nitrate Negative (Negative) 08/11/19 00:25 Urine Bilirubin Negative (Negative) 08/11/19 00:25 Urine Urobilinogen Negative (Negative) 08/11/19 00:25 Ur Leukocyte Esterase Negative (Negative) 08/11/19 00:25 Urine Glucose 3+(>=500 mg/dl) (Negative) A 08/11/19 00:25 Serum Alcohol < 10 mg/dL (<10) 08/10/19 23:37
--- NOTE | 2019-08-13 22:02 | DS ---
CC: Dr. Azael Olvera * DISCHARGE SUMMARY: DATE OF ADMISSION: 08/11/19 DATE OF DISCHARGE: 08/13/19 PRIMARY CARE PROVIDER: Dr. Azael Olvera. ATTENDING PHYSICIAN: Dr. Jacquelyn Leahy.* (DICTATED BY TRAVIS SPRINGER NP) PRIMARY DIAGNOSES: 1. Chronic pancreatitis. 2. Hyperglycemia. SECONDARY DIAGNOSES: 1. Diabetes mellitus type 2. 2. Hypertriglyceridemia. STUDIES WHILE IN THE HOSPITAL: 1. Chest x-ray on 08/10/19 reads as no evidence for acute intrathoracic disease. 2. Abdomen and pelvis CT on 08/12/19 reads as evidence of prior pancreatitis with splenule in the left upper quadrant. Small amount of perisplenic fluid is noted. No other masses or fluid collections are noted. Findings are similar to that identified on 05/04/19. 3. Gastric emptying study on 08/12/19 reads as extrapolated gastric emptying half time of 37 minutes which is within normal limits. CONSULTATIONS WHILE IN THE HOSPITAL: 1. Dr. Crenshaw from pain management on 08/11/19. 2. Dr. Jade from Endocrinology on 08/12/19. HISTORY OF PRESENT ILLNESS AND HOSPITAL COURSE: Mr. Chinchilla is a 44-year-old male with past medical history of chronic pancreatitis complicated by necrotizing pancreatitis, splenic necrosis, functional asplenia, familial hypertriglyceridemia, diabetes mellitus type 2 and pancreatic pseudocyst, who presented to the emergency room on 08/10/19 with complaints of abdominal pain. Please see the history and physical by Dr. Palomo for a complete summary of the events leading up to this hospitalization. In short, the patient has suffered from chronic pancreatitis for quite some time and has been noted to have quite difficult to control diabetes. He came into the emergency room reporting general malaise and weight loss of approximately 30 pounds in the last month due to vomiting. He felt as though his abdominal pain was getting worse than usual. Of note, he has been hospitalized recently at [facility] approximately 3 weeks prior to presentation. In the emergency room, he was noted to be hyperglycemic with a blood glucose of 508. He was treated with insulin and admitted by the hospitalist service. There was no acidosis and he was not try on exam. There is no evidence of DKA or HHNS. He did receive Dilaudid for pain control and was seen in consultation by Dr. Crenshaw because of his chronic pain. At that point, Dr. Crenshaw felt he was at high risk for a continuation of traditional opioids going forward. The patient has previously tried Suboxone, which was not helpful and was not particularly interested in trying methadone. He did have a gastric emptying study because of the concern for gastroparesis, though that was noted to be normal. CT showed no acute findings and appearing similar to his previous CT at this facility from 04/25/19. I did review records from [facility] and this CT also appeared consistent with CT result from that hospital stay in June. The patient was given a diet and has been able to tolerate small amounts of food without any evidence of vomiting. He does report nausea and has been using Zofran frequently. He was seen in consultation by Dr. Jade yesterday on 08/12/19 and he did put a note in today after the patient had already been discharged indicating some changes to be made in insulin dosing. The patient continues to have pain today, but is reasonable about pain management going forward. He does understand that pain will be difficult to control due to his diagnosis of chronic pancreatitis and I think about this nausea and vomiting and subsequent weight loss that he is having is very likely simply related to the chronic pancreatitis. This may represent advancing disease. I spoke at length with the patient about the symptom management and he is agreeable to discharge with appropriate followup going forward. PHYSICAL EXAMINATION: On exam, he is alert and oriented x4 with no focal neurological deficits. Abdomen is soft, but tender throughout particularly in the upper quadrant with pain radiating to the back. Physical exam is otherwise benign. Mr. Chinchilla is stable for discharge. Most recent vitals are as follows: Temp 98.2, heart rate 76, respiratory rate 18, oxygen saturation 98% on room air, blood pressure 122/83. DISCHARGE MEDICATIONS: New: 1. Ondansetron 4 mg p.o. q.6 hours p.r.n. nausea and vomiting. 2. Compazine 10 mg p.o. q.6 hours p.r.n. nausea and vomiting. Continued: 1. Gabapentin 300 mg p.o. t.i.d. 2. Gemfibrozil 600 mg p.o. t.i.d. 3. Lantus 25 units subcu b.i.d. 4. Lispro subcu sliding scale. 5. Pancrelipase 36,000 units p.o. t.i.d. with meals. DISCHARGE PLAN: Mr. Chinchilla will be discharged to home. Activity will be as tolerated. Diet will be regular as tolerated, though I have strongly encouraged the patient to eat small bland meals and to stay well hydrated. He does appear to tolerate food better with small meals and he does understand this going forward. I have sent him scripts for Zofran and Compazine and I have advised the patient that for persistent nausea, he should stagger these medications, so that he is taking one of the medications every 3 hours for maximum symptom relief. He can resume his usual medications as noted above. He will need to follow up with his primary care provider in the next 4 to 7 days. He will additionally need to follow up with Dr. Jade in 2 to 3 weeks. I have additionally advised the patient that he should be following with a gastroenteritis due to his complex GI history and he is agreeable to this. I did contact Dr. Olvera directly to request a Gastroenterology referral. The patient should return to the emergency room or nearest hospital for any worsening of symptoms, shortness of breath, lightheadedness, dizziness, chest discomfort, high fevers, chills, night sweats, loss of consciousness, or any other worrisome signs or symptoms. DISCHARGE CONDITION: Stable. DISCHARGE DISPOSITION: Home. This is a summarized report of a complex medical history and hospital stay. For further details, please see the entire medical record. TIME SPENT: Approximately 50 minutes were spent on this discharge. TRAVIS SPRINGER NP [id number]/[facility] #: [id number] JARAD
== END 2019-08-13 13:07 | disposition home or self-care (01) | DRG 282 ==
LOC: EDBD → ED 22:41 → MERGE 08-11 02:13 → MEDTELE 08-11 02:13
PROVIDERS: ADMIT Internal Medicine; ATTEND Hospitalist
DX: K86.1 Other chronic pancreatitis (principal); E87.1 Hypo-osmolality and hyponatremia; K86.3 Pseudocyst of pancreas; Q89.01 Asplenia (congenital); E11.65 Type 2 diabetes mellitus with hyperglycemia; E78.1 Pure hyperglyceridemia; D73.5 Infarction of spleen; R74.0 Nonspecific elevation of levels of transaminase and lactic acid dehydrogenase [LDH]; F17.210 Nicotine dependence, cigarettes, uncomplicated; G89.29 Other chronic pain; Z83.3 Family history of diabetes mellitus; Z82.49 Family history of ischemic heart disease and other diseases of the circulatory system; Z79.4 Long term (current) use of insulin; Z79.899 Other long term (current) drug therapy; Z88.6 Allergy status to analgesic agent; Z88.5 Allergy status to narcotic agent
CPT/HCPCS: 36415; 71045; 74177; 78264; 80048; 80053; 80076; 80320; 81003; 82803; 82947; 83036; 83605; 83690; 84132; 84478; 85025; 86140; 93005; 96365; 99284; A9270-GY; A9541; G0480; J1170; J2270; J2405; J2765; Q9967

== ENCOUNTER 2019-09-03 08:25 | Emergency (ER) | payer OTHER ==
[2019-09-03] MEDS ORDERED: NS 0.9% 1000 ML** 1,000 ML IV ONE ×2 (08:29→09:20)
[2019-09-03] MEDS ORDERED: Ondansetron INJ* 2 MG/ML VIAL IV ONE ×3 (08:29→10:35)
[2019-09-03] MEDS ORDERED: Morphine 4 MG/ML VIAL (1 ml) 4 MG/ML VIAL IV ONE ×2 (08:29→10:26)
--- NOTE | 2019-09-03 08:31 | ED ---
Abdominal Pain/Male - HPI Summary HPI Summary: 44 year old M arriving via ambulance complains of progressively worsening LUQ abdominal pain rated 9/10 in severity with nausea/vomiting and dizziness that started yesterday 09/02/2019 PM. Hx pancreatitis from hx ETOH use. Patient states he no longer drinks ETOH. Symptoms aggravated by nothing. Symptoms alleviated by nothing. PMHx reviewed. Hx diabetes type I for which he takes insulin injections. BG 289 per EMS. Medications reviewed. Allergies reviewed. - History of Current Complaint Stated Complaint: ABDOMINAL PAIN PER EMS Hx Obtained From: Patient Onset/Duration: Lasting Hours, Still Present Timing: Constant Severity Currently: Severe Pain Intensity: 9 Pain Scale Used: 0-10 Numeric Location: Discrete At: LUQ Aggravating Factor(s): Nothing Alleviating Factor(s): Nothing Associated Signs And Symptoms: Positive: Dizzy, Nausea, Vomiting - Allergies/Home Medications Allergies/Adverse Reactions: Allergies Allergy/AdvReac Type Severity Reaction Status Date / Time No Known Allergies Allergy Verified 09/03/19 08:31 PMH/Surg Hx/FS Hx/Imm Hx Endocrine/Hematology History: Reports: Hx Diabetes, Other Endocrine/ Hematological Disorders - pancreatitis, h/o necrotysing Denies: Hx Thyroid Disease Cardiovascular History: Reports: Hx Hypercholesterolemia Denies: Hx Congestive Heart Failure, Hx Hypertension Respiratory History: Denies: Hx Asthma, Hx Chronic Obstructive Pulmonary Disease (COPD) GI History: Reports: Hx Gastroesophageal Reflux Disease, Other GI Disorders - Pancreatitis - chronic, splenic necrosis Denies: Hx Ulcer History: Denies: Hx Dialysis, Hx Renal Disease Sensory History: Denies: Hx Cataracts, Hx Contacts or Glasses, Hx Eye Injury, Hx Eye Prosthesis, Hx Glaucoma, Hx Legally Blind, Hx Macular Degeneration, Hx Vision Problem, Hx Deafness, Hx Hearing Aid, Hx Hearing Problem, Other Sensory Impairments Opthamlomology History: Denies: Hx Cataracts, Hx Contacts or Glasses, Hx Eye Injury, Hx Eye Prosthesis, Hx Glaucoma, Hx Legally Blind, Hx Macular Degeneration, Hx Vision Problem, Other Sensory Impairments Neurological History: Denies: Hx Dementia, Hx Developmental Delay, Hx Headaches, Hx Migraine, Hx Nerve Disease, Hx Seizures, Hx Spinal Cord Injury, Hx Transient Ischemic Attacks (TIA), Other Neuro Impairments/Disorders Psychiatric History: Reports: Hx Depression, Hx Substance Abuse - ETOH - Surgical History Surgery Procedure, Year, and Place: piece of pancreas removed Hx Anesthesia Reactions: No - Immunization History Date of Tetanus Vaccine: utd Date of Influenza Vaccine: fall 2016 Infectious Disease History: Reports: Hx Clostridium Difficile Denies: Hx Hepatitis, Hx Human Immunodeficiency Virus (HIV), Hx of Known/ Suspected MRSA, Hx Shingles, Hx Tuberculosis - Family History Known Family History: Positive: Other - brother high triglycerides (>1,000) - Social History Alcohol Use: None Alcohol Amount: quit in 2002 Hx Substance Use: Yes Substance Use Type: Reports: Marijuana Substance Use Comment - Amount & Last Used: Marijuana used occasionally to increase appetite and treat pain Hx Tobacco Use: Yes Smoking Status (MU): Light Every Day Tobacco Smoker Type: Cigarettes Amount Used/How Often: 1/2 ppd Have You Smoked in the Last Year: Yes Review of Systems Positive: Abdominal Pain - LUQ, Vomiting, Nausea Neurological: Other - Dizziness All Other Systems Reviewed And Are Negative: Yes Physical Exam - Summary Physical Exam Summary: VITAL SIGNS: Reviewed. GENERAL: Patient is a well-developed and nourished male who is in acute distress secondary to pain. HEAD AND FACE: Normocephalic and atraumatic. EYES: PERRLA, EOMI x 2, No injected conjunctiva. EARS: Hearing grossly intact. Ear canals and tympanic membranes are WNL. MOUTH: Oropharynx within normal limits. NECK: Supple, trachea is midline, no adenopathy, no JVD. CHEST: Symmetric, no tenderness at palpation. LUNGS: Clear to auscultation bilaterally. No wheezing or crackles. CVS: RRR, S1 and S2 present, no murmurs or gallops appreciated. ABDOMEN: Soft, LUQ tenderness. No signs of distention. Positive bowel sounds. No rebound, some guarding, and no masses palpated. No abdominal bruit or pulsations. EXTREMITIES: FROM in all major joints, no edema, no cyanosis or clubbing. NEURO: Alert and oriented x 3. No acute neurological deficits. Speech is normal. SKIN: Dry and warm. Triage Information Reviewed: Yes Vital Signs Reviewed: Yes Procedures - Sedation Patient Received Moderate/Deep Sedation with Procedure: No Diagnostics - Laboratory Result Diagrams: 09/03/19 08:36 09/03/19 08:36 Lab Statement: Any lab studies that have been ordered have been reviewed, and results considered in the medical decision making process. - CT Abd/Pel CT Interpretation Completed By: Radiologist Summary of CT Findings: #. Diffuse hepatosteatosis. #. Unchanged mild intrahepatic biliary dilatation. #. Stigmata of chronic pancreatitis. Small volume of nonloculated fluid at the anterior pararenal space. No loculated abscess collection or pseudocyst evident. #. Chronic irregular contour/ fragmented morphology of the spleen and probable perisplenic hematoma compared with the August 12, 2019 and May 04, 2019 exams without change. #. Chronic splenic vein thrombosis. ED physician has reviewed this report. Re-Evaluation - Re-Evaluation First Eval Re-Evaluation Time: 09:15 Comment: aware of lactic acid 2.8 Second Eval Re-Evaluation Time: 10:35 Comment: patient updated on lab and imaging findings Third Eval Re-Evaluation Time: 11:33 Comment: patient agrees to discharge Abdominal Pain Male Course/Dx - Course Assessment/Plan: 44 year old M arriving via ambulance complains of progressively worsening LUQ abdominal pain rated 9/10 in severity with nausea/ vomiting and dizziness that started yesterday 09/02/2019 PM. Hx pancreatitis from hx ETOH use. Patient states he no longer drinks ETOH. Symptoms aggravated by nothing. Symptoms alleviated by nothing. PMHx reviewed. Hx diabetes type I for which he takes insulin injections. BG 289 per EMS. Medications reviewed. Allergies reviewed. Blood work without any significant abnormality except for sodium 133, potassium 3.4, glucose 358. Lactic acid 2.8, amylase 1.7, total bili 1.2, AST 227, AST 273, alkaline phosphatase is 314. The patient has history of increased LFTs. In the ED course, the patient was given IV fluids, insulin for hyperglycemia, Zofran for nausea and vomiting, morphine for pain. After these medications, the patients symptoms have significantly improved. Abdominal and pelvic CT IMPRESSION: #. Diffuse hepatosteatosis. #. Unchanged mild intrahepatic biliary dilatation. #. Stigmata of chronic pancreatitis. Small volume of non loculated fluid at the anterior pararenal space. No loculated abscess collection or pseudocyst evident. #. Chronic irregular contour/fragmented morphology of the spleen and probable perisplenic is a pleasant the patient is visiting a is medically versus: Small right hematoma compared with the August 12, 2019 and May 04, 2019 exams without change. #. Chronic splenic vein thrombosis. After the patient was given with these medication, the symptoms have significantly improved. The patients pain has resolved, the nausea and vomiting has resolved. The patient is tolerating PO without any nausea and vomiting. The patient is aware that he has chronic increase in liver function tests and he reports he has an appointment to see GI next week. Since the patient is feeling better, he does not have nausea, vomiting, the hyperglycemia has improved, he will be discharged home with follow -up with Dr. Olvera the primary care physician as well as the GI doctor. The patient will continue monitoring his blood sugar and he will give himself insulin following the sliding scale. Patient is hemodynamically stable, he is alert and oriented 3. All his questions were addressed and he has no further concerns. He was recommended to return immediately to the emergency department if he develops the same symptoms or any other symptoms. The patient understands and agrees. - Diagnoses Provider Diagnoses: Hyperglycemia, Abdominal pain Discharge ED - Sign-Out/Discharge Documenting (check all that apply): Patient Departure - Discharge Plan Condition: Stable Disposition: HOME Patient Education Materials: Abdominal Pain (ED), Diabetic Hyperglycemia (ED) Referrals: Haley Naranjo MD [Medical Doctor] - Azael Olvera MD [Primary Care Provider] - 3 Days Additional Instructions: Follow up with your primary care provider in 3 days. Follow up with Dr. Naranjo, gastrointestinal. Return to the Emergency Department for new or worsening symptoms. - Billing Disposition and Condition Condition: STABLE Disposition: Home - Attestation Statements Document Initiated by Andra: Yes Documenting Scribe: Zenaida Contreras Provider For Whom Andra is Documenting (Include Credential): Jae Eaton MD Scribe Attestation: Zenaida Garcia scribed for Jae Eaton MD on 09/03/19 at 1842. Scribe Documentation Reviewed: Yes Provider Attestation: The documentation as recorded by the Zenaida miller accurately reflects the service I personally performed and the decisions made by me, Jae Eaton MD Status of Scribe Document: Viewed
[2019-09-03 08:56] LABS: ABS Eosinophils 0.1 10^3/ul (0-0.6); ABS Lymphocytes 1.5 10^3/ul (1.0-4.8); ABS Monocytes 0.5 10^3/ul (0-0.8); ABS Neutrophils 5.8 10^3/ul (1.5-7.7); Eosinophil % 0.9 %; Hematocrit 46 % (42-52); Hemoglobin 16.2 g/dL (14.0-18.0); Lymphocyte % 19.3 %; Mean Corpuscular HGB Conc 35 g/dL (31-36); Mean Corpuscular Hemoglobin 34 pg (27-31); Mean Corpuscular Volume 96 fL (80-94); Mean Platelet Volume 8.7 fL (7.4-10.4); Platelet Count 248 10^3/uL (150-450); Red Blood Count 4.83 10^6 /uL (4.18-5.48); Red Cell Distribution Width 14 % (10-15)
[2019-09-03 09:03] LABS: INR 0.91 (0.82-1.09)
[2019-09-03 09:12] LABS: Albumin 3.8 g/dL (3.2-5.2); Albumin/Globulin Ratio 1.4 (1-3); BUN/Creatinine Ratio 10.5 (8-20); C Reactive Protein 2.64 mg/L (<8.01); EGFR African American 135.4 (>60); EGFR Non-African American 111.9 (>60); Globulin 2.8 g/dL (2-4); Magnesium 1.7 mg/dL (1.9-2.7); Potassium 3.4 mmol/L (3.5-5.0); Total Bilirubin 1.2 mg/dL (0.2-1.0); Total Protein 6.6 g/dL (6.4-8.9)
[2019-09-03 09:13] LABS: Troponin I 0.01 ng/mL (<0.03)
[2019-09-03] MEDS ORDERED: Iodixanol* (CONTRAST) 320 MG/ML 100 ML SDV IV SCH (09:32)
[2019-09-03] MEDS ORDERED: Insulin REGULAR(*) 1 UNITS UNIT IV PUSH ONE ×2 (10:26→11:43)
[2019-09-03 12:37] VITALS: BP 133/90
[2019-09-03 13:15] LABS: Urine Appearance Cloudy; Urine Bilirubin Negative (Negative); Urine Blood Negative (Negative); Urine Color Yellow; Urine Glucose 3+(>=500 mg/dL) (Negative); Urine Ketones Negative (Negative); Urine Nitrite Negative (Negative); Urine Protein Negative (Negative); Urine Urobilinogen Negative (Negative)
== END 2019-09-03 12:35 | disposition home or self-care (01) ==
LOC: ED 08:25
DX: R10.12 Left upper quadrant pain (principal); E11.65 Type 2 diabetes mellitus with hyperglycemia; E78.00 Pure hypercholesterolemia, unspecified; K21.9 Gastro-esophageal reflux disease without esophagitis; F32.9 Major depressive disorder, single episode, unspecified; F17.210 Nicotine dependence, cigarettes, uncomplicated
CPT/HCPCS: 36415; 74177; 80053; 81003; 82150; 82550; 83605; 83690; 83735; 83880; 84484; 85025; 85610; 85730; 86140; 93005; 96361; 96374; 96375; 96376; 99284; J2270; J2405; Q9967

== ENCOUNTER 2019-09-15 15:41 | Emergency (ER) | payer OTHER ==
[2019-09-15 19:03] LABS: ABS Basophils 0.1 10^3/ul (0-0.2); ABS Eosinophils 0.1 10^3/ul (0-0.6); ABS Monocytes 1.1 10^3/ul (0-0.8); ABS Neutrophils 8.1 10^3/ul (1.5-7.7); Eosinophil % 0.8 %; Hematocrit 45 % (42-52); Hemoglobin 15.9 g/dL (14.0-18.0); Lymphocyte % 17.7 %; Mean Corpuscular HGB Conc 35 g/dL (31-36); Mean Corpuscular Hemoglobin 34 pg (27-31); Mean Corpuscular Volume 97 fL (80-94); Mean Platelet Volume 8.9 fL (7.4-10.4); Platelet Count 298 10^3/uL (150-450); Red Blood Count 4.66 10^6 /uL (4.18-5.48); Red Cell Distribution Width 14 % (10-15); White Blood Count 11.4 10^3/uL (3.5-10.8)
[2019-09-15 19:15] LABS: Albumin 4.5 g/dL (3.2-5.2); Albumin/Globulin Ratio 1.4 (1-3); C Reactive Protein 8.73 mg/L (<8.01); Calcium 10.1 mg/dL (8.6-10.3); EGFR African American 108.6 (>60); EGFR Non-African American 89.8 (>60); Globulin 3.2 g/dL (2-4); Total Bilirubin 6.6 mg/dL (0.2-1.0); Total Protein 7.7 g/dL (6.4-8.9)
[2019-09-15 19:18] LABS: Potassium 3.9 mmol/L (3.5-5.0)
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
[2019-09-15] MEDS ORDERED: Ketorolac INJ* 30 MG/ML 1 ML VIAL IV PUSH ONE (21:39)
[2019-09-15] MEDS ORDERED: Pantoprazole IV* 40 MG IV ONE (21:39)
[2019-09-15] MEDS ORDERED: NS 0.9% 1000 ML** 1,000 ML IV ONE (21:39)
[2019-09-15] MEDS ORDERED: Ondansetron INJ* 2 MG/ML VIAL IV ONE (21:39)
[2019-09-15] MEDS ORDERED: Iodixanol* (CONTRAST) 320 MG/ML 100 ML SDV IV ONE (22:16)
[2019-09-16] MEDS ORDERED: Insulin GLARGINE(*) 1 UNITS UNIT SUBCUT ONE (00:09)
[2019-09-16] MEDS ORDERED: fentaNYL* 50 MCG/ML 2 ML VIAL (100 MCG VIAL) IV SLOW PU ONE ×2 (00:10→02:41)
[2019-09-16 00:58] LABS: Urine Benzodiazepine Screen None Detected (None Detect); Urine Opiates Screen None Detected (None Detect)
[2019-09-16 01:16] LABS: Urine Appearance Cloudy; Urine Bacteria Absent (Absent); Urine Bilirubin Negative (Negative); Urine Blood Negative (Negative); Urine Color Amber; Urine Glucose 3+(>=500 mg/dL) (Negative); Urine Ketones Negative (Negative); Urine Nitrite Negative (Negative); Urine Protein Negative (Negative); Urine Red Blood Cell Absent (Absent); Urine Specific Gravity 1.018 (1.010-1.030); Urine Urobilinogen Positive (Negative); Urine White Blood Cell Absent (Absent)
[2019-09-16 03:12] VITALS: BP 121/75
== END 2019-09-16 03:06 | disposition short-term general hospital (02) ==
LOC: ED 15:41
DX: K83.1 Obstruction of bile duct (principal); R16.0 Hepatomegaly, not elsewhere classified; K76.0 Fatty (change of) liver, not elsewhere classified; E11.9 Type 2 diabetes mellitus without complications; Z79.4 Long term (current) use of insulin; E78.00 Pure hypercholesterolemia, unspecified; K21.9 Gastro-esophageal reflux disease without esophagitis; Z90.411 Acquired partial absence of pancreas; Z87.891 Personal history of nicotine dependence
CPT/HCPCS: 36415; 74177; 76705; 80053; 80307; 81003; 83690; 85025; 86140; 96361; 96372; 96374; 96375; 99285; G0480; J1885; J2405; J3010; Q9967

== ENCOUNTER 2019-09-30 12:41 | Emergency (ER) | payer OTHER ==
[2019-09-30 12:47] VITALS: BP 142/102
--- OUTSIDE RECORDS SUMMARY | 2019-09-30 12:54 | XMS REPORT | Summary of Care ---
:1975 Author Organization [facility] Address [address] [address] Care Team Providers Name Role Phone Jurgen Wilson MD Primary Care Provider Reason for Referral (Routine) Status Reason Specialty Diagnoses / Procedures Referred By Contact Referred To Contact Drake Gagnon MD [address] [id number] Scheduling Instructions Reason for Consult: abd pain, hx of triglyceridemia with aphresis needed multiple times. Elevated lfts, concern pancreatitis over hx pancreatomy Patient Background: Ryder Chinchilla is a 44-y.o. male Reason for Visit Auth/Cert Status Reason Specialty Diagnoses / Procedures Referred By Contact Referred To Contact Encounter Details Date Type Department Care Team Description 09/16/2019 - Hospital Encounter [facility] [address] [place] Drake Gagnon MD [address] [id number] Inpatient 09/22/2019 1 Luanne Pretty MD [address] [address] [address] [place] [id number] Carlie Arvizu MD [address] [address] [phone] Allergies Active Allergy Reactions Severity Noted Date Comments Codeine GI Reaction 12/25/2017 Stomach upset Ibuprofen GI Reaction 12/25/2017 Stomach upset Pain Relief Extra Unknown Reaction 12/25/2017 Was given tylenol with out issue at OSH documented as of this encounter (statuses as of 09/23/2019) Medications Medication Sig Dispensed Refills Start Date [...] Vitro Strip route FOUR TIMES DAILY. Pen [place] 3/16" 31G 1 Applicator by 30 Each [...] MG Oral Tab THREE TIMES DAILY. Additional Information Patient taking differently: 600 mg Oral DAILY, Reported on 06/10/2019 11:47 AM Insulin Lispro, Human, Inject 10 Units beneath 1 Device 0 08/10/2015 Active (HUMALOG KWIKPEN) 100 UNIT/ML the skin BEFORE SUPPER. Subcutaneous Solution . Pen-injector Additional Information Patient taking differently: 10-12 Units Subcutaneous AC, ., Indications: with meals a needed, Reported on 06/10/2019 11:47 AM gabapentin Take 1 Cap by mouth 90 Cap 0 12/30/2017 Active (NEURONTIN) 300 MG THREE TIMES DAILY. Oral Cap Pancrelipase, Take 1 Cap by mouth 0 Active Bjr-Cydz-Nmni, THREE TIMES DAILY (CREON) 46663 units BEFORE MEALS. Oral CAPSULE ENTERIC Indications: COATED Pancreatic PARTICLESIndications Insufficiency : Pancreatic Insufficiency METFORMIN HCL ER PO Take 1 Tab by mouth 0 Active THREE TIMES DAILY BEFORE MEALS. HYDROmorphone Take 1 Tab by mouth 30 Tab 0 06/13/2019 Active (DILAUDID) 4 MG Oral THREE TIMES DAILY Tab NEEDED (pain). Max Daily Amount: 12 mg. Insulin Glargine Inject 40 Units 1 Device 0 09/22/2019 Active (LANTUS SOLOSTAR) beneath the skin 100 UNIT/ML TWICE DAILY. Subcutaneous Solution Pen-injector ciprofloxacin Take 1 Tab by mouth 10 Tab 0 09/22/2019 Active (CIPRO) 500 MG Oral TWICE DAILY. Tab OXYcodone Take 1 Tab by mouth 28 Tab 0 09/22/2019 Active (OXY-IR,OXY-FAST) 10 EVERY FOUR HOURS MG Oral Tab NEEDED (pain). Max Daily Amount: 60 mg. ondansetron (ZOFRAN Take 1 Tab by mouth 60 Tab 0 09/22/2019 Active ODT) 8 MG Oral THREE TIMES DAILY TABLET DISPERSIBLE BEFORE MEALS. pantoprazole Take 1 Tab by mouth 30 Tab 0 09/22/2019 Active (PROTONIX) 40 MG BEFORE BREAKFAST. Oral Tab EC Insulin Glargine Inject 30 Units 1 Device 0 08/10/2015 (LANTUS SOLOSTAR) beneath the skin 2020 (Reorder) 100 UNIT/ML EVERY BEDTIME. Subcutaneous Solution Pen-injector documented as of this encounter (statuses as of 09/23/2019) Active Problems Problem Noted Date LFTs abnormal 09/16/2019 Abdominal pain, acute 06/21/2019 Acute on chronic [...] as of this encounter (statuses as of 09/23/2019) Social History Tobacco Use Types Packs/Day Years Used Date Current Every Day Smoker Cigarettes 0.25 14 Smokeless Tobacco: Current User Chew Alcohol Use Drinks/Week oz/Week Comments No history alcohol abuse Education Answer Date Recorded What is the highest level of school you have High school graduate 06/10/2019 completed or the highest degree you have received? Sex Assigned at Date Recorded Not on file documented as of this encounter Last Filed Vital Signs Vital Sign Reading Time Taken Comments Blood Pressure 139/89 09/22/2019 11:30 AM EST Pulse 86 09/22/2019 11:30 AM EST Temperature 36.7 09/22/2019 11:30 AM EST C (98 F) Respiratory Rate 20 09/22/2019 11:30 AM EST Oxygen Saturation 98% 09/22/2019 11:30 AM EST Inhaled Oxygen Concentration - - Weight 68.3 kg (150 lb 8 oz) 09/16/2019 4:15 AM EST Height 177.8 cm (5' 10") 09/16/2019 4:15 AM EST Body Mass Index 21.59 09/16/2019 4:15 AM EST documented in this encounter Discharge Instructions Gabriel Khan RN - 09/22/2019 Patient Education Can Foods or Supplements Lower Cholesterol? The Basics Written by the doctors and editors at [facility] Can I lower my cholesterol by changing my diet?Maybe. Some people are able to lowertheir cholesterol by changing their diet. While this does not always work, you can still improve your overall health by eating better. If you have high cholesterol, it might help to avoid or limit red meat, butter, fried foods, cheese,and other foods that have a lot of saturated fat. Other things that might help lower cholesterol include: Eating more soluble fiber ? Soluble fiber is found in fruits, oats, barley, beans, and peas. A vegan diet ? A vegan diet contains no animal products, such as meat , eggs, or milk. In general, you can improve your health by eating lots of fruits, vegetables, and whole grains. You can also cut back on sweets and processed foods. What about eggs?Eggs are OK if you want to eat them, but don't overdo it. The news often has stories about the health benefits or risks of eggs. The truth is, eggs are a good source ofprotein and do not raise cholesterol much. Saturated fats (like in red meat, butter, and fried foods) affect cholesterol levels more than eggs do. Are there specific foods that can lower my cholesterol?Maybe. There are some foods that seem to lower cholesterol, but scientists are still not sure. Here are some foods that are beingstudied: Foods rich in omega-3 fatty acids ? Foods rich in omega-3 fatty acids include oily fish, and olive and canola oil. These foods seem to raise good cholesterol and might lower certain types ofbad cholesterol. More important , studies show that people who eat lots of these foods are less likely than those who eat less of them to have heart disease. If you want, it's fine to eat 1 to 2 servings of oily fish a week (such as salmon, leo, or tuna). If you would like to take fish oil supplements, talk to your doctor or nurse. Nuts ? Some studies show that eating certain nuts, such as walnuts and pistachios, can help lower cholesterol and even the risk of heart attack or . Fiber-rich foods ? Fiber-rich foods, such as fruits, vegetables, beans, and oats, seem tolower cholesterol and are generally good for your health. Some doctors even recommend fiber supplements. What about landscape designer foods that claim to lower cholesterol?Be careful with these foods. There are now many foods that have added plant extracts called "sterols" or "stanols." Examples include special margarines such as Benecol and Promise Activ. Foods with added sterols or stanols can lower cholesterol. But it's not clear whether those foods help reduce the risk of heart attack or stroke. Plus, research in animals shows that these extracts might actually cause health problems. Experts think more research is needed before they can recommend that people eat foods with added plant sterols or stanols. Should I take supplements to lower my cholesterol?Maybe. Some research has shown that certain supplements can lower cholesterol. But there is almost no research showing that supplements can help prevent heart attacks, strokes, or any of the problems caused by high cholesterol. If you decide to try supplements, keep in mind that in the [place], the government does not regulate supplements very well. That means that what's on a supplement's label is not always actually in the bottle. Here are some supplements that might help with cholesterol: Red yeast rice ? This supplement can contain the same ingredient that is in a prescription medicine to lower cholesterol. Red yeast rice helps lower cholesterol, but the products that claim to have it might not always have much of the active ingredient. Calcium ? Some studies show that calcium supplements can lower cholesterol. But there areno studies showing that they lower the risk of heart attack or stroke. Some studies even suggest that calcium supplements can increase these risks. All topics are updated as new evidence becomes available and our peer review process is complete. This topic retrieved from [employer] on: Jun 10, 2019. Topic 96335 Version 15.0 Release: 27.4.5 - C27.318 ?2019?[employer] and/or its affiliates.?All rights reserved. Consumer Information Use and Disclaimer This information is not specific medical advice and does not replace information you receive from your health care provider. This is only a brief summary of general information. It does NOT include allinformation about conditions, illnesses, injuries, tests, procedures, treatments, therapies, discharge instructions or life-style choices that may apply to you. You must talk with your health care provider for complete information about your health and treatment options. This information should not beused to decide whether or not to accept your health care provider's advice, instructions or recommendations. Only your health care provider has the knowledge and training to provide advice that is right for you.The use of [employer] content is governed by the [employer] Terms of Use. 2019 [employer]. All rights reserved. Copyright ?2019?[employer] and/or its affiliates.?All rights reserved. Patient Education Chronic Pancreatitis About this topic The pancreas is an organ that makes and releases enzymes and hormones. These help you break down thefood you eat. The pancreas gives off a hormone called insulin. This hormone controls the sugar levels in your blood. Pancreatitis is the swelling or irritation of the pancreas. Chronic pancreatitis is when the swelling goes on for a long time. This may damage your pancreas. Damage to the pancreas can cause diabetes. Treatment is focused on a few things. Doctors will help to control your pain. They will also work tohelp your digestion and treat your diabetes. You may need to change some activities in your life. Surgery may be needed if the pain or other problems continue. What are the causes? Many times, a cause for this illness is found. Sometimes, a reason for chronic pancreatitis is not known. Many things can cause ongoing injury to the pancreas like: Ongoing alcohol use. This is the most common cause. Autoimmune problems where the body attacks itself by mistake Blockages of tubes that drain enzymes out of the pancreas. This may be due to gallstones, tumors, or a cyst. An injury or a defect can also cause a blockage. Illnesses like cystic fibrosis, mumps, or high levels of parathyroid or triglycerides Using certain drugs, such as corticosteroids A family history of pancreatitis High levels of calcium in the blood What can make this more likely to happen? This illness happens most often in men. It is more common between 30 and 40 years of age. Being a heavy alcohol drinker or smoker raises your risk. So does having a family history of chronic pancreatitis. What are the main signs? Pain in the belly area that may last for hours or days. The pain may go up your back. You may have pain all the time. It may get worse with eating, drinking, or drinking alcohol. Problems with breaking down food can lead to an upset stomach, throwing up , loose stools, and weight loss. Stools may be pale, grayish, fatty, or oily Fever Yellowing of the skin, also called jaundice, can happen if a bile duct is blocked Dehydration How does the doctor diagnose this health problem? Your doctor will do an exam and take your history. The doctor will feel your belly area. You may need to have: Lab tests CT scan Ultrasound of the belly area X-ray Special tests on your pancreas How does the doctor treat this health problem? Your care will depend on your signs. Your doctor may order: Drugs You to stop eating and drinking for a short while. This will rest your pancreas. ?? You may need an IV for fluids ?? You may need a NG tube. This is a tube that is put in the nose and goes into the stomach. Special diet ?? You may need to work with a dietitian to learn what foods are good for you to eat. ?? Eat smaller meals more often. Drink at least 6 to 8 glasses of fluids each day. Limit caffeine. ?? Avoid beer, wine, and mixed drinks (alcohol). ?? Eat a diet low in fat to help with loose stools, bloating, and cramping. ?? Stay away from sugars and fats. Limit sweets and fatty foods such as desserts , fried foods, and chips. Eat good fats found in fish, nuts, avocados, and oils , like olive oil and canola oil. Cut back on solid fats like butter, lard, and margarine. Insulin, if needed Surgery may be needed to fix a blockage. Sometimes, you may need to have part or all of your pancreas taken out. Endoscopic exam and testing - The doctor can place a scope through the mouth into the stomach and small intestine to look at the pancreas. Then the doctor can break up small stones or place a drain in the pancreas. Are there other health problems to treat? Because of this condition, you may have problems with digestion or high blood sugar. Both of these may need treatment. What drugs may be needed? The doctor may order drugs to: Help with pain Help your body digest food better Help you gain weight Improve nutrition Help with an upset stomach, throwing up, and loose stools Keep your blood sugar at a normal level What problems could happen? Extra fluid can collect in the belly Blockage of the small intestine or bile tubes Fluid build-up in the pancreas that can get infected You can get diabetes Vitamins or nutrients may not get absorbed in the body Pancreatic cancer (rare) What can be done to prevent this health problem? Avoid excessive use of beer, wine, and mixed drinks (alcohol). If you have acute pancreatitis, get treatment right away. If you do not get treatment, ongoing problems can happen and chronic pancreatitis may result. Avoid smoking. If you have gallstones, get treatment right away. Where can I learn more? [employer] https://familydoctor.org/condition/pancreatitis/ [employer] https://www.gastro.org/practice-guidance/um-dgsfbkq-uedrip/topic/pancreatitis [employer] https://ure-bfs-uvrdwd.s3.[employer]/8995428447878---All_Pancreatitis_ 2017.pdf Better Health https://www.betterhealth.archie.gov.au/health/ConditionsAndTreatments/pancreatitis NHS Choices http://www.nhs.uk/Conditions/Pancreatitis-chronic/Pages/Treatment.aspx Last Reviewed Date 2018-10-11 Consumer Information Use and Disclaimer This information is not specific medical advice and does not replace information you receive from your health care provider. This is only a brief summary of general information. It does NOT include allinformation about conditions, illnesses, injuries, tests, procedures, treatments, therapies, discharge instructions or life-style choices that may apply to you. You must talk with your health care provider for complete information about your health and treatment options. This information should not beused to decide whether or not to accept your health care provider?s advice, instructions or recommendations. Only your health care provider has the knowledge and training to provide advice that is right for you. Copyright Copyright 2019 [employer] and its affiliates and/or licensors. All rights reserved. Provider's Instructions Reason for Admission or Diagnosis:Acute on chronic pancreatitis (HCC) Goals:Patient to maintain functional ability and prevent readmission and improve functional health status Activity/Restrictions: activity as tolerated Skin/Wound Care: None needed Discharge Diet: Diabetic Diet, low fat det . Small frequent meals Special Instructions: -Please take medications as ordered. -Please follow up with PCP , Jurgen Wilson in one week and GI in 2-4 weeks. -Please continue to check your blood sugar at home , take readings to your PCP and endocrinology forfurther medication changes. -Call me with questions. Discharge Provider: Carlie Arvizu MD Attending: Carlie Arvizu MD Time: 10:23 Nurse's Instructions Problems to report to your Physician: Excessive pain or discomfort Fever > 100.5 degrees Difficulty breathing Increase or smell in wound drainage Skin/Wound Care: Skin intact on discharge Medical Equipment/Supplies to help you at home Help arranged for you Home Health/Receiving Agency documented in this encounter Progress Notes Carlie Arvizu MD - 09/21/2019 12:47 PM EST [facility] [address]. [id number] Hospitalist Progress Note Date of Service: 09/21/2019 Patient: Ryder Chinchilla B #: [id number] Attending: CARLIE ARVIZU MD ,MD Subjective: Patient was seen and examined today. His was at bedside. Patient reported that his abdominal pain, nausea had improved since yesterday. He is able to tolerate regular diabetic diet with no issues. He noted last night that he has pain around the right lower rib and noted a swellingfor which ultrasound was done overnight that was not diagnostic for any rib pathology but x-ray of the rib was recommended which I ordered today. He had no overnight events. He is eating and drinkingokay. Bowel movements are okay. Is hemodynamically stable. Blood sugars stable as well. ?Discussed with the patient about stopping IV pain medication and he was agreeable. ?X-ray of the rib was ordered, he can be at discharge tomorrow pending the results of the x-ray of the rib. Physical: Objective: Blood pressure 132/82, pulse 74, temperature 97.4 F (36.3 C) , temperature source Temporal, resp. rate 16, height 5' 10" (1.778 m), weight 150 lb 8 oz (68.3 kg), SpO2 97 %. General: no distress, in no distress Lungs: clear to auscultation Heart: regular rate and rhythm Abd: Abdomen soft, Mild tenderness along the right lower rib cage. BS normal. No masses, organomegaly or hernia. No bruits. Ext: Extremities normal. No deformities, edema, or skin discoloration. Neuro: Mental status:awake, alert and oriented Data: Lab Results Component Value Date WBC 6.72 09/21/2019 HGB 12.5 (L) 09/21/2019 HCT 36.9 (L) 09/21/2019 PLAT 287 09/21/2019 Lab Results Component Value Date NA 134 09/21/2019 K 4.8 09/21/2019 CL 100 09/21/2019 CO2 26 09/21/2019 GLUCOSE 432 (H) 09/21/2019 BUN 12 09/21/2019 CREATININE 0.7 (L) 09/21/2019 CALCIUM 9.0 09/21/2019 EGFR >60 09/21/2019 US ABDOMEN LIMITED Final Result The palpable area seems to correspond to the more prominent portion of the rib which has a smooth contour and probably should be further evaluated with a rib series, if clinically indicated Urgency: Routine. This is a routine medical imaging report. Recommendation: No specific imaging recommendation. Signed by Phillip Jacobs DO on 09/21/2019 10:21 AM XR ERCP BILIARY Final Result Fluoroscopic assistance for ERCP exam. Urgency: Routine. This is a routine medical imaging report. Recommendation: No specific imaging recommendation. Signed by Nick Alarcon MD on 09/17/2019 1:08 PM MR ABDOMEN W AND WO CONTRAST Final Result Imaging findings are concerning for cholangitis although this is best excluded clinically. No intrahepatic or periductal abscess. No imaging findings of acute pancreatitis. Massive thickening of the of the gastric rugae, possibly secondary to gastritis. Endoscopy could be acquired to exclude other diagnostic etiologies such as malignancy or M?n?trier disease. Correlation with the patient's serum gastric levels could be acquired to exclude Angel-Lindsey syndrome. Chronic small subcapsular splenic hematoma. Signed by Delfino Wen MD on 09/17/2019 8:04 AM US ABDOMEN LIMITED Final Result CT ABDOMEN PELVIS WITH IV CONTRAST Final Result CT ABDOMEN PELVIS WITH IV CONTRAST Final Result Plan/Impression: Acute on Chronic Pancreatitis : improved. Most liekly in settings of possible Cholethiasis. Patient is known to have recurrent pancreatitis in the setting of hypertriglyceridemia but this time his triglyceride level is not very high so it is not likely to be the cause of his recurrent pancreatitis. Presented with severe epigastric pain and jaundice Mild leukocytosis, Lipase is normal, TG 278, LFTs are elevated -GI was consulted who recommended MRCP. MRCP showed concern for acute cholangitis. I sent blood cultures and start the patient on Zosyn. -EGD on 09/17/19 revealed diffuse gastritis, biopsies taken from gastric body And ERCP with sphincterotomy performed with removal of minimal sludge but no stones. -Appreciate GI input. -He was treated conservatively for his acute pancreatitis with bowel rest, IV fluids and pain control. We gradually started diet and currently tolerating low -fat diabetic diet for few days with no issues. -I had stopped IV fluids today. -He was initially on IV Zosyn that was stopped and he was started on Cipro 500 mg twice daily fortotal of 10 days. Blood cultures are negative so far. -Continue to monitor liver enzymes. -For pain control, I resumed his home medication Dilaudid 4 mg every 6 hours, I will continue OxyIR10 mg every 4 hours as needed for moderate pain and Dilaudid 0.5 mg every 6 hours for severe pain. We also added pre-meal Zofran. -Today, he is doing better so I stopped IV pain medications. Transaminitis: Improving , Could be related to a passing stone, cannot rule out ascending cholangitis as well. Continue to monitor liver enzymes and avoid hepatotoxic medication. Poorly controlled diabetes mellitus type 2: His last A1c was 13.7. We have been monitoring blood sugar closely and making medication adjustments. Currently he is on Lantus 35 units BID, 8 units pre-meal and insulin sliding scale. Will monitor blood sugar level and modify medications accordingly Hypertriglyceridemia: Continue gemfibrozil 600 mg 3 times daily Rib pain: We will get x-ray of the ribs DVT Prophylaxis: heparin subcu. GI Prophylaxis: protonix Nutrition: Low-fat diabetic diet. Williamson remains in place for the following reason(s): No williamson present Card Placer: Consulted Smoking cessation counseling was provided for 0 minutes PT/OT: Not required Disposition: pending medical optimization. Author: Carlie Arvizu MD Carlie Seaman MD - 09/20/2019 11:42 AM EST [facility] [place]. [id number] Hospitalist Progress Note Date of Service: 09/20/2019 Patient: Ryder Lama #: [id number] Attending: CARLIE ARVIZU MD , Subjective: Patient was seen and examined today. Patient reported having nausea and new onset rightupper quadrant pain today that occurred after he ate breakfast. He received Zofran with some improvement of his nausea but continues to have mild abdominal discomfort in the right upper quadrant. He did that he has done very well yesterday and his pain was well controlled. -Extensive discussion was held with the patient, recommended to start oral Zofran pre-meal and continue current pain regimen as well as diet. Decreased IV fluids. Patient was advised that we will continue to monitor him and if his symptoms deteriorate, will go back to clears and possibly repeat imaging of the abdomen. I also ordered lipase level today. -If his symptoms improve with this regimen, will stop IV pain medications tomorrow and plan for discharge on Sunday. Physical: Objective: Blood pressure 125/65, pulse 60, temperature 97.8 F (36.6 C) , temperature source Temporal, resp. rate 18, height 5' 10" (1.778 m), weight 150 lb 8 oz (68.3 kg), SpO2 99 %. General: no distress, in no distress Lungs: clear to auscultation Heart: regular rate and rhythm Abd: Abdomen soft, tenderness in RUQ . BS normal. No masses, organomegaly or hernia. No bruits. Ext: Extremities normal. No deformities, edema, or skin discoloration. Neuro: Mental status:awake, alert and oriented Data: Lab Results Component Value Date WBC 6.36 09/20/2019 HGB 13.1 (L) 09/20/2019 HCT 38.3 (L) 09/20/2019 PLAT 282 09/20/2019 Lab Results Component Value Date NA 136 09/20/2019 K 4.0 09/20/2019 CL 99 09/20/2019 CO2 32 (H) 09/20/2019 GLUCOSE 139 (H) 09/20/2019 BUN 13 09/20/2019 CREATININE 0.6 (L) 09/20/2019 CALCIUM 9.1 09/20/2019 EGFR >60 09/20/2019 XR ERCP BILIARY Final Result Fluoroscopic assistance for ERCP exam. Urgency: Routine. This is a routine medical imaging report. Recommendation: No specific imaging recommendation. Signed by Nick Alarcon MD on 09/17/2019 1:08 PM MR ABDOMEN W AND WO CONTRAST Final Result Imaging findings are concerning for cholangitis although this is best excluded clinically. No intrahepatic or periductal abscess. No imaging findings of acute pancreatitis. Massive thickening of the of the gastric rugae, possibly secondary to gastritis. Endoscopy could be acquired to exclude other diagnostic etiologies such as malignancy or M?n?trier disease. Correlation with the patient's serum gastric levels could be acquired to exclude Angel-Lindsey syndrome. Chronic small subcapsular splenic hematoma. Signed by Delfino Wen MD on 09/17/2019 8:04 AM US ABDOMEN LIMITED Final Result CT ABDOMEN PELVIS WITH IV CONTRAST Final Result CT ABDOMEN PELVIS WITH IV CONTRAST Final Result Plan/Impression: Acute on Chronic Pancreatitis Most liekly in settings of possible Cholethiasis. Patient is known to have recurrent pancreatitis in the setting of hypertriglyceridemia but this time his triglyceride level is not very high so it is not likely to be the cause of his recurrent pancreatitis. Presented with severe epigastric pain and jaundice Mild leukocytosis, Lipase is normal, TG 278, LFTs are elevated -GI was consulted who recommended MRCP. MRCP showed concern for acute cholangitis. I sent blood cultures and start the patient on Zosyn. -EGD on 09/17/19 revealed diffuse gastritis, biopsies taken from gastric body And ERCP with sphincterotomy performed with removal of minimal sludge but no stones. -Appreciate GI input. -He was treated conservatively for his acute pancreatitis with bowel rest, IV fluids and pain control. We gradually started diet and currently tolerating low -fat diabetic diet for the last 24 hours with no issues. Continue gentle hydration with lactated Ringer's 75 cc/h just for today. -He was initially on IV Zosyn that was stopped and he was started on Cipro 500 mg twice daily for total of 10 days. Blood cultures are negative so far. -Continue to monitor liver enzymes. -For pain control, I resumed his home medication Dilaudid 4 mg every 6 hours, I will continue OxyIR10 mg every 4 hours as needed for moderate pain and Dilaudid 0.5 mg every 6 hours for severe pain. -Patient has been doing okay except today, he reported having nausea and right upper quadrant pain.Started Zofran pre-meal, continue current diet and pain regimen but if his symptoms do not improve or get worse, will plan to start a clear liquid diet and possibly repeat imaging. Reordered lipase level. Transaminitis: Improving , Could be related to a passing stone, cannot rule out ascending cholangitis as well. Continue to monitor liver enzymes and avoid hepatotoxic medication. Poorly controlled diabetes mellitus type 2: His last A1c was 13.7. We have been monitoring blood sugar closely and making medication adjustments. Currently he is on Lantus 25 units BID, 8 units pre-meal and insulin sliding scale. Will monitor blood sugar level and modify medications accordingly Hypertriglyceridemia: Continue gemfibrozil 600 mg 3 times daily DVT Prophylaxis: heparin subcu. GI Prophylaxis: protonix Nutrition: Low-fat diabetic diet. Williamson remains in place for the following reason(s): No williamson present Card Placer: Consulted Smoking cessation counseling was provided for 0 minutes PT/OT: Not required Disposition: pending medical optimization. Author: Carlie Arvizu MD Sánchez Ayers MD - 09/19/2019 5:56 PM EST [facility] [place]. [id number] GI Progress Note Date of Service: 09/19/2019 Patient: Ryder Lama #: [id number] Attending: CARLIE ARVIZU MD , Subjective: No acute events overnight, abdominal pain has been significantly improved, tolerating low-fat diet, remains on LR. Liver enzymes have been trending down. Objective: Blood pressure 116/80, pulse 61, temperature 98.5 F (36.9 C) , temperature source Temporal, resp. rate 20, height 5' 10" (1.778 m), weight 150 lb 8 oz (68.3 kg), SpO2 97 %. I/O: Intake/Output Summary (Last 24 hours) at 09/19/2019 1757 Last data filed at 09/19/2019 1415 Gross per 24 hour Intake 1742 ml Output ? Net 1742 ml General: Lying comfortably in the bed. Lungs: Vesicular breathing with no added sounds Heart: S1, S2 +0 Abd: {Soft, mild tenderness in epigastrium, bowel sounds are positive Ext: No pedal edema, no cyanosis. [employer] APPRENTICE : Alert, awake, oriented x 3, nonfocal. Data: WBC Count Date Value Ref Range Status 09/19/2019 7.60 4.23 - 9.07 K/uL Final Hemoglobin Date Value Ref Range Status 09/19/2019 14.0 13.7 - 17.5 g/dL Final Hematocrit Date Value Ref Range Status 09/19/2019 40.1 40.1 - 51.0 % Final Platelet Count Date Value Ref Range Status 09/19/2019 120 (L) 163 - 337 K/uL Final Sodium Date Value Ref Range Status 09/19/2019 137 134 - 145 mmol/L Final Potassium Date Value Ref Range Status 09/19/2019 4.3 3.5 - 5.1 mmol/L Final Comment: Slightly hemolyzed. Results may be affected. Chloride Date Value Ref Range Status 09/19/2019 104 98 - 107 mmol/L Final CO2 Date Value Ref Range Status 09/19/2019 28 22 - 30 mmol/L Final Glucose Date Value Ref Range Status 09/19/2019 75 70 - 99 mg/dl Final Calcium Date Value Ref Range Status 09/19/2019 8.7 8.3 - 10.1 mg/dl Final BUN Date Value Ref Range Status 09/19/2019 6 (L) 9 - 20 mg/dl Final Comment: Slightly hemolyzed. Results may be affected. 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 Patient tolerating low-fat diet, remains on LR with significant improvement of pain since hospitalization. Liver enzymes trending down Continue antibiotics, total of 10 days. If abdominal pain resolves and patient is able to tolerate diet, he could be discharged from GI standpoint. Outpatient GI follow-up. Author: Sánchez Boateng MD Carlie Seaman MD - 09/19/2019 2:06 PM EST [facility] [place]. [id number] Hospitalist Progress Note Date of Service: 09/19/2019 Patient: Ryder Chinchilla Kelby #: [id number] Attending: CARLIE ARVIZU MD ,MD Subjective: Patient was seen and examined today. Patient reported having significant abdominal painhowever he seemed very comfortable still. He has chronic abdominal pain and it would be very challenging to cure him. At this point, I will continue pain medications as mentioned later with no change. ?He is able to tolerate low-fat diabetic diet since yesterday with no issues. No nausea or vomiting. Liver functions are improving. He is moving in the right direction. Physical: Objective: Blood pressure 132/83, pulse 69, temperature 98.1 F (36.7 C) , temperature source Temporal, resp. rate 19, height 5' 10" (1.778 m), weight 150 lb 8 oz (68.3 kg), SpO2 97 %. General: no distress, in no distress Lungs: clear to auscultation Heart: regular rate and rhythm Abd: Abdomen soft, mild tenderness allover the abdomen . BS normal. No masses, organomegaly or hernia. No bruits. Ext: Extremities normal. No deformities, edema, or skin discoloration. Neuro: Mental status:awake, alert and oriented Data: Lab Results Component Value Date WBC 7.60 09/19/2019 HGB 14.0 09/19/2019 HCT 40.1 09/19/2019 PLAT 120 (L) 09/19/2019 Lab Results Component Value Date NA 137 09/19/2019 K 4.3 09/19/2019 CL 104 09/19/2019 CO2 28 09/19/2019 GLUCOSE 75 09/19/2019 BUN 6 (L) 09/19/2019 CREATININE 0.6 (L) 09/19/2019 CALCIUM 8.7 09/19/2019 EGFR >60 09/19/2019 XR ERCP BILIARY Final Result Fluoroscopic assistance for ERCP exam. Urgency: Routine. This is a routine medical imaging report. Recommendation: No specific imaging recommendation. Signed by Nick Alarcon MD on 09/17/2019 1:08 PM MR ABDOMEN W AND WO CONTRAST Final Result Imaging findings are concerning for cholangitis although this is best excluded clinically. No intrahepatic or periductal abscess. No imaging findings of acute pancreatitis. Massive thickening of the of the gastric rugae, possibly secondary to gastritis. Endoscopy could be acquired to exclude other diagnostic etiologies such as malignancy or M?n?trier disease. Correlation with the patient's serum gastric levels could be acquired to exclude Angel-Lindsey syndrome. Chronic small subcapsular splenic hematoma. Signed by Delfino Wen MD on 09/17/2019 8:04 AM US ABDOMEN LIMITED Final Result CT ABDOMEN PELVIS WITH IV CONTRAST Final Result CT ABDOMEN PELVIS WITH IV CONTRAST Final Result Plan/Impression: Acute on Chronic Pancreatitis Most liekly in settings of possible Cholethiasis. Patient is known to have recurrent pancreatitis in the setting of hypertriglyceridemia but this time his triglyceride level is not very high so it is not likely to be the cause of his recurrent pancreatitis. Presented with severe epigastric pain and jaundice Mild leukocytosis, Lipase is normal, TG 278, LFTs are elevated -GI was consulted who recommended MRCP. MRCP showed concern for acute cholangitis. I sent blood cultures and start the patient on Zosyn. -EGD on 09/17/19 revealed diffuse gastritis, biopsies taken from gastric body And ERCP with sphincterotomy performed with removal of minimal sludge but no stones. -Appreciate GI input. -He was treated conservatively for his acute pancreatitis with bowel rest, IV fluids and pain control. We gradually started diet and currently tolerating low -fat diabetic diet for the last 24 hours with no issues. Continue gentle hydration with lactated Ringer's 100 cc/h just for today. -He was initially on IV Zosyn that was stopped today and he was started on Cipro 500 mg twice daily for total of10 days. Blood cultures are negative so far. -Continue to monitor liver enzymes. -For pain control, I resumed his home medication Dilaudid 4 mg every 6 hours, I will continue OxyIR10 mg every 4 hours as needed for moderate pain and Dilaudid 0.5 mg every 6 hours for severe pain. Transaminitis: Could be related to a passing stone, cannot rule out ascending cholangitis as well. Continue to monitor liver enzymes and avoid hepatotoxic medication. Poorly controlled diabetes mellitus type 2: His last A1c was 13.7. Continue on Lantus 25 units nightly , 15 25 units in the morning and continue insulin sliding scale. Will monitor blood sugar level and modify medications accordingly Hypertriglyceridemia: Continue gemfibrozil 600 mg 3 times daily DVT Prophylaxis: heparin subcu. GI Prophylaxis: protonix Nutrition: Low-fat diabetic diet. Williamson remains in place for the following reason(s): No williamson present Card Placer: Consulted Smoking cessation counseling was provided for 0 minutes PT/OT: Not required Disposition: pending medical optimization. Author: Carlie Arvizu MD Ольга Araya MD - 09/18/2019 4:13 PM EST [address] [address] Internal Medicine Progress Note Date of Service: 09/18/2019 Patient: Ryder Lama #: [id number] Attending: CARLIE ARVIZU MD ,MD Subjective: Day 2 of hospitalization. Doing well post procedure, pain better controlled, looks comfortable but reports 6/10 pain intermittently. Able to tolerate clear liquid diet. Pt denies any chest pain, fevers, chills, dysuria. Objective: Alert, oriented x3, NAD General:?cooperative Heart:?regular rate &?rhythm, S1 S2 heard and no murmur, Lungs:?clear to auscultation Abd:?soft, mild diffuse tenderness, nondistended, ?BS present Ext:?no edema Neuro:?alert, awake, oriented,? Vitals: Blood pressure (!) 131/96, pulse 73, temperature 98.1 F (36.7 C) , temperature sourceTemporal, resp. rate 18, height 5' 10" (1.778 m), weight 150 lb 8 oz (68.3 kg), SpO2 99 %. I/O: Intake/Output Summary (Last 24 hours) at 09/18/2019 1613 Last data filed at 09/18/2019 1207 Gross per 24 hour Intake 1674 ml Output 800 ml Net 874 ml Relevant labs and Radiology Results: reviewed Assessment/Plan: Active Problems: Acute pancreatitis Hypertriglyceridemia Acute on chronic pancreatitis (HCC) Abdominal pain, acute LFTs abnormal Acute on Chronic Biliary Pancreatitis /Cholangitis History of chronic pancreatitis Presented with severe epigastric pain and jaundice,leukocuytosis S/p EGD and ERCP with removal of calculi from biliary and pancreatic duct along with sphincterotomy Recommendations: Doing well post procedure: LFTs improving, Bilirubin is expected to be high before normalization Continue conservative management with IVF and pain management Advance diet to Low Fat diet- if not able to tolerate switch back to clears ? Discussed with and agreed upon with Dr Boateng Author: Ольга Agee MD Associated attestation - Sánchez Boateng MD - 09/18/2019 4:32 PM ESTPatient seen and examined the bedside with GI team. I agree with medical registrar assessment and plan except as documented by note below. Mild elevation of bilirubin after ERCP, possible papillary edema, overall mucosal edema in the stomach and duodenum likely secondary to acute pancreatitis. Biopsies from gastric body unremarkable, changes likely secondary to pancreatitis. Recommendations Can advance diet to low-fat Continue IV fluids trend liver enzymes GI will follow. Carlie Arvizu MD - 09/18/2019 12:20 PM EST [facility] [place]. [id number] Hospitalist Progress Note Date of Service: 09/18/2019 Patient: Ryder Lama #: [id number] Attending: CARLIE ARVIZU MD ,MD Subjective: Patient was seen and examined today. Patient reported having significant abdominal painhowever he seemed very comfortable. Patient reported that he takes Dilaudid 4 mg 4 times a day at home and he sees pain clinic however his pain doctor wants to switch that to methadone. He reports hehas chronic abdominal pain from recurrent pancreatitis. He reported that he had celiac plexus block 2 times in the past that did not work. He denied any nausea or vomiting. -Patient was started on clear liquid diet today. We will see how he does till tomorrow then we can advance to full liquid diet. ?He has been having regular bowel movements with no diarrhea. ? His pain control might be challenging and we may need to involve interventional pain management again this admission. Physical: Objective: Blood pressure (!) 131/96, pulse 73, temperature 98.1 F (36.7 C), temperature source Temporal, resp. rate 18, height 5' 10" (1.778 m), weight 150 lb 8 oz (68.3 kg), SpO2 99 %. General: no distress, mild distress Lungs: clear to auscultation Heart: regular rate and rhythm Abd: Abdomen soft, tenderness allover the abdomen . BS normal. No masses, organomegaly or hernia. No bruits. Ext: Extremities normal. No deformities, edema, or skin discoloration. Neuro: Mental status:awake, alert and oriented Data: Lab Results Component Value Date WBC 9.20 (H) 09/18/2019 HGB 14.4 09/18/2019 HCT 41.5 09/18/2019 PLAT 238 09/18/2019 Lab Results Component Value Date NA 136 09/18/2019 K 4.3 09/18/2019 CL 102 09/18/2019 CO2 26 09/18/2019 GLUCOSE 299 (H) 09/18/2019 BUN 9 09/18/2019 CREATININE 0.6 (L) 09/18/2019 CALCIUM 8.8 09/18/2019 EGFR >60 09/18/2019 XR ERCP BILIARY Final Result Fluoroscopic assistance for ERCP exam. Urgency: Routine. This is a routine medical imaging report. Recommendation: No specific imaging recommendation. Signed by Nick Alarcon MD on 09/17/2019 1:08 PM MR ABDOMEN W AND WO CONTRAST Final Result Imaging findings are concerning for cholangitis although this is best excluded clinically. No intrahepatic or periductal abscess. No imaging findings of acute pancreatitis. Massive thickening of the of the gastric rugae, possibly secondary to gastritis. Endoscopy could be acquired to exclude other diagnostic etiologies such as malignancy or M?n?trier disease. Correlation with the patient's serum gastric levels could be acquired to exclude Angel-Lindsey syndrome. Chronic small subcapsular splenic hematoma. Signed by Delfino Wen MD on 09/17/2019 8:04 AM US ABDOMEN LIMITED Final Result CT ABDOMEN PELVIS WITH IV CONTRAST Final Result CT ABDOMEN PELVIS WITH IV CONTRAST Final Result Plan/Impression: Acute on Chronic Pancreatitis Most liekly in settings of possible Cholethiasis. Patient is known to have recurrent pancreatitis in the setting of hypertriglyceridemia but this time his triglyceride level is not very high so it is not likely to be the cause of his recurrent pancreatitis. Presented with severe epigastric pain and jaundice Mild leukocytosis, Lipase is normal, TG 278, LFTs are elevated -GI was consulted who recommended MRCP. MRCP showed concern for acute cholangitis. I sent blood cultures and start the patient on Zosyn. -EGD on 09/17/19 revealed diffuse gastritis, biopsies taken from gastric body And ERCP with sphincterotomy performed with removal of minimal sludge but no stones. -Appreciate GI input, I had started the patient on clear liquid diet and will continue to monitor and advance diet to low-fat diet as tolerated. Continue IV lactated Ringer's, decrease the rate 150 ccper hour. I will continue IV antibiotics just for today till I get final results of blood culture then I will switch to p.o. Cipro for total of 10 days of antibiotics as per GI recommendations. -Continue to monitor liver enzymes. -For pain control, I resumed his home medication Dilaudid 4 mg every 6 hours, I will continue OxyIR10 mg every 4 hours as needed for moderate pain and I will start Dilaudid 0.5 mg every 6 hours for severe pain. Transaminitis: Could be related to a passing stone, cannot rule out ascending cholangitis as well. Continue to monitor liver enzymes and avoid hepatotoxic medication. Poorly controlled diabetes mellitus type 2: His last A1c was 13.7. Continue on Lantus 30 units nightly , started Lantus 25 units in the morning and continue insulin sliding scale. Will monitor blood sugar level and modify medications accordingly Hypertriglyceridemia: Continue gemfibrozil 600 mg 3 times daily DVT Prophylaxis: heparin subcu. GI Prophylaxis: protonix Nutrition: clear liquids Williamson remains in place for the following reason(s): No williamson present Card Placer: Consulted Smoking cessation counseling was provided for 0 minutes PT/OT: Not required Disposition: pending medical optimization. Author: Carlie Arvizu MD Carlie Seaman MD - 09/17/2019 12:20 PM EST [facility] [place]. [id number] Hospitalist Progress Note Date of Service: 09/17/2019 Patient: Ryder Lama #: [id number] Attending: CARLIE ARVIZU MD , Subjective: Patient was seen and examined today. Patient reported having significant abdominal pain. He denied any nausea or vomiting. He has been n.p.o. since admission. Blood sugar was found to be on the lower side today and he received D50. He denied any dizziness, lightheadedness. GI recommended EGD and ERCP today. Physical: Objective: Blood pressure 139/88, pulse 64, temperature 98.5 F (36.9 C) , temperature source Temporal, resp. rate 17, height 5' 10" (1.778 m), weight 150 lb 8 oz (68.3 kg), SpO2 99 %. General: no distress, mild distress Lungs: clear to auscultation Heart: regular rate and rhythm Abd: Abdomen soft, non-tender. BS normal. No masses, organomegaly or hernia. No bruits. Ext: Extremities normal. No deformities, edema, or skin discoloration. Neuro: Mental status:awake, alert and oriented Data: Lab Results Component Value Date WBC 14.49 (H) 09/17/2019 HGB 15.4 09/17/2019 HCT 45.0 09/17/2019 PLAT 262 09/17/2019 Lab Results Component Value Date NA 138 09/17/2019 K 3.8 09/17/2019 CL 105 09/17/2019 CO2 21 (L) 09/17/2019 GLUCOSE 61 (L) 09/17/2019 BUN 8 (L) 09/17/2019 CREATININE 0.6 (L) 09/17/2019 CALCIUM 9.3 09/17/2019 EGFR >60 09/17/2019 MR ABDOMEN W AND WO CONTRAST Final Result Imaging findings are concerning for cholangitis although this is best excluded clinically. No intrahepatic or periductal abscess. No imaging findings of acute pancreatitis. Massive thickening of the of the gastric rugae, possibly secondary to gastritis. Endoscopy could be acquired to exclude other diagnostic etiologies such as malignancy or M?n?trier disease. Correlation with the patient's serum gastric levels could be acquired to exclude Angel-Lindsey syndrome. Chronic small subcapsular splenic hematoma. Signed by Delfino Wen MD on 09/17/2019 8:04 AM XR ERCP BILIARY AND PANCREATIC (Results Pending) Plan/Impression: Acute on Chronic Pancreatitis Most liekly in settings of possible Cholethiasis. Patient is known to have recurrent pancreatitis in the setting of hypertriglyceridemia but this time his triglyceride level is not very high so it is not likely to be the cause of his recurrent pancreatitis. Presented with severe epigastric pain and jaundice Mild leukocytosis, Lipase normal, TG 278, LFTs are elevated -GI was consulted who recommended MRCP. MRCP showed concern for acute cholangitis. I sent blood cultures and start the patient on Zosyn. GI is planned to proceed with EGD and ERCP today. ? Plan: Continue conservative management with IVF and pain management. I had added oxycodone in addition toDilaudid. -We will keep the patient n.p.o. till he gets his ERCP and EGD then we can start clear liquid diet. Transaminitis: Could be related to a passing stone, cannot rule out ascending cholangitis as well. Continue to monitor liver enzymes and avoid hepatotoxic medication. Poorly controlled diabetes mellitus type 2: His last A1c was 13.7. Continue on Lantus 30 units nightly and insulin sliding scale. Will monitor blood sugar level and modify medications accordingly Hypertriglyceridemia: Continue gemfibrozil 600 mg 3 times daily DVT Prophylaxis: Start heparin subcu. GI Prophylaxis: protonix Nutrition: NPO Williamson remains in place for the following reason(s): No williamson present Card Placer: Consulted Smoking cessation counseling was provided for 0 minutes PT/OT: Not required Disposition: pending medical optimization. Author: Carlie Arvizu MD Ольга Araya MD - 09/17/2019 11:20 AM EST [address] [address] Internal Medicine Progress Note Date of Service: 09/17/2019 Patient: Ryder Lama #: [id number] Attending: CARLIE ARVIZU MD ,MD Subjective: Day 1 of hospitalization. No acute events overnight but continues to have abdominal pain. MRCP suspicious for Cholangitis and pt started on Zosyn. Feels the same, reports 9/10 pain. Planned for EGD/ERCP today. Pt denies any chest pain, fevers, chills, dysuria. Objective: Alert, oriented x3, moderate distress due to pain General:?cooperative Heart:?regular rate &?rhythm, S1 S2 heard and no murmur, Lungs:?clear to auscultation Abd:?soft, epigastric tenderness, nondistended, ?BS present Ext:?no edema Neuro:?alert, awake, oriented,? Vitals: Blood pressure 139/88, pulse 64, temperature 98.5 F (36.9 C), temperature source Temporal, resp. rate 17, height 5' 10" (1.778 m), weight 150 lb 8 oz (68.3 kg), SpO2 99 %. I/O: Intake/Output Summary (Last 24 hours) at 09/17/2019 1120 Last data filed at 09/16/2019 1442 Gross per 24 hour Intake ? Output 800 ml Net -800 ml Relevant labs and Radiology Results: reviewed Assessment/Plan: Active Problems: Acute pancreatitis Hypertriglyceridemia Acute on chronic pancreatitis (HCC) Abdominal pain, acute LFTs abnormal Acute on Chronic Biliary Pancreatitis /Cholangitis TG not high enough to explain this episode, T bilirubin very high to suggest obstructive jaundice Presented with severe epigastric pain and jaundice,leukocuytosis Recommendations: MRCP showed gastric rugae thickening and possible cholangitis LFTs improving but pain still present: will perform EGD and ERCP Continue conservative management with IVF and pain management ? Discussed with and agreed upon with Dr Boateng Author: Ольга Agee MD Associated attestation - Sánchez Boateng MD - 09/17/2019 5:51 PM ESTPatient seen and examined at bedside prior to EGD and ERCP done today. Patient had worsening of white count and changes on MRCP suspicious for acute cholangitis. EGD revealed diffuse gastritis, biopsies taken from gastric body. ERCP with sphincterotomy performed with removal of minimal sludge but no stones. Low-fat diet as tolerated Continue IV fluids for now. Continue IV antibiotics, can change to p.o. Cipro, total of 10 days of antibiotics. Trend liver enzymes daily. GI will follow. I agree with medical registrar assessment and plan.documented in this encounter Plan of Treatment Name Type Priority Associated Order Schedule Diagnoses Have patient sign Diagnostic/Surgical Routine TOMORROW - GENERAL permit for ERCP Procedures USE for 1 Occurrences starting 09/17/2019 until 09/17/2019 Patient for EGD Diagnostic/Surgical Routine TOMORROW - GENERAL in GI [facility]/ [facility] Procedures USE for 1 - OR Occurrences starting 09/18/2019 until 09/18/2019 Health Maintenance Due Date Last Done Comments PNEUMOCOCCAL 0-64 YRS (1 of 1 - 1982 PPSV23) DTaP/Tdap/Td Vaccines (1 - Tdap) 1987 DEPRESSION SCREENING 1988 HIV SCREENING 1991 INFLUENZA VACCINE (#1) 2019 HEPATITIS A IMMUNIZATION SERIES Aged Out No longer eligible based on patient's age to complete this topic HPV IMMUNIZATION SERIES Aged Out No longer eligible based on patient's age to complete this topic MENINGOCOCCAL VACCINE IMM Aged Out No longer eligible based on patient's age to complete this topic documented as of this encounter Procedures Procedure Name Priority Date/Time Associated Comments Diagnosis HC GLUCOSE, BY MONITOR Routine 09/22/2019 Results for 12:37 PM EST this procedure are in the results section. HC GLUCOSE, BY MONITOR Routine 09/22/2019 Results for 7:34 AM EST this procedure are in the results section. PLATELET CHECK / REVIEW Routine 09/22/2019 5:31 AM EST CBC WITH DIFFERENTIAL Routine 09/22/2019 Results for 5:31 AM EST this procedure are in the results section. COMPREHENSIVE METABOLIC PANEL STAT 09/22/2019 Results for 5:31 AM EST this procedure are in the results section. HC GLUCOSE, BY MONITOR Routine 09/22/2019 Results for 2:20 AM EST this procedure are in the results section. HC GLUCOSE, BY MONITOR Routine 09/21/2019 Results for 8:55 PM EST this procedure are in the results section. HC GLUCOSE, BY MONITOR Routine 09/21/2019 Results for 4:20 PM EST this procedure are in the results section. XR RIBS UNILAT WITH PA CHEST STAT 09/21/2019 Results for MIN 3 VIEWS RIGHT 2:15 PM EST this procedure are in the results section. HC GLUCOSE, BY MONITOR Routine 09/21/2019 Results for 12:17 PM EST this procedure are in the results section. COMPREHENSIVE METABOLIC PANEL STAT 09/21/2019 Results for 10:51 AM EST this procedure are in the results section. US ABDOMEN LIMITED Routine 09/21/2019 Results for 10:09 AM EST this procedure are in the results section. CBC WITH DIFFERENTIAL Routine 09/21/2019 Results for 8:37 AM EST this procedure are in the results section. HC GLUCOSE, BY MONITOR Routine 09/21/2019 Results for 7:34 AM EST this procedure are in the results section. HC GLUCOSE, BY MONITOR Routine 09/20/2019 Results for 9:04 PM EST this procedure are in the results section. HC GLUCOSE, BY MONITOR Routine 09/20/2019 Results for 4:33 PM EST this procedure are in the results section. HC GLUCOSE, BY MONITOR Routine 09/20/2019 Results for 11:30 AM EST this procedure are in the results section. HC GLUCOSE, BY MONITOR Routine 09/20/2019 Results for 7:27 AM EST this procedure are in the results section. CBC WITH DIFFERENTIAL Routine 09/20/2019 Results for 7:02 AM EST this procedure are in the results section. LIPASE Routine 09/20/2019 Results for 7:02 AM EST this procedure are in the results section. COMPREHENSIVE METABOLIC PANEL STAT 09/20/2019 Results for 7:02 AM EST this procedure are in the results section. HC GLUCOSE, BY MONITOR Routine 09/19/2019 Results for 8:44 PM EST this procedure are in the results section. HC GLUCOSE, BY MONITOR Routine 09/19/2019 Results for 5:01 PM EST this procedure are in the results section. HC GLUCOSE, BY MONITOR Routine 09/19/2019 Results for 11:25 AM EST this procedure are in the results section. HC GLUCOSE, BY MONITOR Routine 09/19/2019 Results for 8:04 AM EST this procedure are in the results section. CBC WITH DIFFERENTIAL Routine 09/19/2019 Results for 5:21 AM EST this procedure are in the results section. COMPREHENSIVE METABOLIC PANEL STAT 09/19/2019 Results for 5:21 AM EST this procedure are in the results section. HC GLUCOSE, BY MONITOR Routine 09/18/2019 Results for 8:43 PM EST this procedure are in the results section. HC GLUCOSE, BY MONITOR Routine 09/18/2019 Results for 4:50 PM EST this procedure are in the results section. HC GLUCOSE, BY MONITOR Routine 09/18/2019 Results for 12:07 PM EST this procedure are in the results section. HC GLUCOSE, BY MONITOR Routine 09/18/2019 Results for 8:54 AM EST this procedure are in the results section. CBC WITH DIFFERENTIAL Routine 09/18/2019 Results for 7:07 AM EST this procedure are in the results section. COMPREHENSIVE METABOLIC PANEL STAT 09/18/2019 Results for 7:07 AM EST this procedure are in the results section. HC GLUCOSE, BY MONITOR Routine 09/18/2019 Results for 5:24 AM EST this procedure are in the results section. HC GLUCOSE, BY MONITOR Routine 09/18/2019 Results for 1:22 AM EST this procedure are in the results section. HC GLUCOSE, BY MONITOR Routine 09/17/2019 Results for 9:06 PM EST this procedure are in the results section. HC GLUCOSE, BY MONITOR Routine 09/17/2019 Results for 5:10 PM EST this procedure are in the results section. XR ERCP BILIARY Routine 09/17/2019 Results for 1:06 PM EST this procedure are in the results section. HC GLUCOSE, BY MONITOR Routine 09/17/2019 Results for 1:06 PM EST this procedure are in the results section. TISSUE EXAM Routine 09/17/2019 Abnormal MRI Results for 12:20 PM EST this procedure are in the results section. ENDOSCOPY UPPER GI Planned Trip 09/17/2019 to OR 11:43 AM EST ENDOSCOPIC RETROGRADE Planned Trip 09/17/2019 CHOLANGIOPANCREATOGRAPHY to OR 11:43 AM EST UPPER GI ENDOSCOPY REPORT Routine 09/17/2019 Results for 11:39 AM EST this procedure are in the results section. ERCP NOTE Routine 09/17/2019 Results for 11:37 AM EST this procedure are in the results section. HC GLUCOSE, BY MONITOR Routine 09/17/2019 Results for 11:11 AM EST this procedure are in the results section. PROTHROMBIN TIME STAT 09/17/2019 Results for 9:22 AM EST this procedure are in the results section. PARTIAL THROMBOPLASTIN TIME STAT 09/17/2019 Results for 9:22 AM EST this procedure are in the results section. ADULT BLOOD CULTURE Routine 09/17/2019 Results for 9:05 AM EST this procedure are in the results section. BLOOD CULTURESC&S) Routine 09/17/2019 Results for 9:05 AM EST this procedure are in the results section. ADULT BLOOD CULTURE Routine 09/17/2019 Results for 9:00 AM EST this procedure are in the results section. BLOOD CULTURESC&S) Routine 09/17/2019 Results for 9:00 AM EST this procedure are in the results section. HC GLUCOSE, BY MONITOR Routine 09/17/2019 Results for 5:37 AM EST this procedure are in the results section. CBC WITH DIFFERENTIAL Routine 09/17/2019 Results for 5:09 AM EST this procedure are in the results section. COMPREHENSIVE METABOLIC PANEL Routine 09/17/2019 Results for W/REFLEX MAGNESIUM 5:09 AM EST this procedure are in the results section. CA 19-9 Routine 09/17/2019 Results for 5:09 AM EST this procedure are in the results section. MAGNESIUM LEVEL STAT 09/17/2019 Results for 5:09 AM EST this procedure are in the results section. PROTHROMBIN TIME STAT 09/17/2019 Results for 5:09 AM EST this procedure are in the results section. HC GLUCOSE, BY MONITOR Routine 09/17/2019 Results for 12:40 AM EST this procedure are in the results section. MR ABDOMEN W AND WO CONTRAST VITALIY 09/16/2019 Results for 11:39 PM EST this procedure are in the results section. HC GLUCOSE, BY MONITOR Routine 09/16/2019 Results for 8:55 PM EST this procedure are in the results section. HC GLUCOSE, BY MONITOR Routine 09/16/2019 Results for 6:19 PM EST this procedure are in the results section. GGT (GAMMA Routine 09/16/2019 Results for GLUTAMYLTRANSFERASE) 1:59 PM EST this procedure are in the results section. HC GLUCOSE, BY MONITOR Routine 09/16/2019 Results for 12:48 PM EST this procedure are in the results section. SIGN PERMIT 09/16/2019 12:00 PM EST CBC WITH DIFFERENTIAL Routine 09/16/2019 Results for 7:31 AM EST this procedure are in the results section. LIPID PROFILE Routine 09/16/2019 Results for 7:31 AM EST this procedure are in the results section. LIPASE Routine 09/16/2019 Results for 7:31 AM EST this procedure are in the results section. GLYCOHEMOGLOBIN A1C Routine 09/16/2019 Results for 7:31 AM EST this procedure are in the results section. COMPREHENSIVE METABOLIC PANEL Routine 09/16/2019 Results for 7:31 AM EST this procedure are in the results section. BILIRUBIN, DIRECT STAT 09/16/2019 Results for 7:31 AM EST this procedure are in the results section. US ABDOMEN LIMITED Routine 09/15/2019 Pain 12:[address] ABDOMEN PELVIS WITH IV Routine 09/15/2019 Pain CONTRAST 12:[address] ABDOMEN PELVIS WITH IV Routine 09/03/2019 Pain CONTRAST 12:00 AM EST documented in this encounter Results GLUCOSE (POCT) (09/22/2019 12:37 PM EST) Glucose POCT 132 (H) 70 - 99 mg/dl POINT OF CARE Result Comment: TESTING Performed at: [facility] POCT Carlito Gomez MD, Laboratory Director Of Ancillary Services [address] [place] [place] [address] Specimen Performing Organization Address [facility] Phone Number POINT OF CARE TESTING GLUCOSE (POCT) (09/22/2019 7:34 AM EST) Glucose POCT 382 (H) 70 - 99 mg/dl POINT OF CARE Result Comment: TESTING Performed at: [facility] POCT Carlito Gomez MD, Laboratory Director Of Ancillary Services [address] [place] [address] Specimen Performing Organization Address [facility] Phone Number POINT OF CARE TESTING PLATELET CHECK / REVIEW (09/22/2019 5:31 AM EST) Specimen Blood - Blood specimen (specimen) Performing Organization Address [facility] Phone Number [facility] [address] [address] COMPREHENSIVE METABOLIC PANEL (09/22/2019 5:31 AM EST) Sodium 133 (L) 134 - 145 mmol/L [facility] Potassium 5.1Comment: 3.5 - 5.1 mmol/L [facility] GROUP hemolyzed. LABORATORY Results may be affected. Chloride 101 98 - 107 mmol/L [facility] CO2 23 22 - 30 mmol/L [facility] Calcium 9.5 8.3 - 10.1 mg/dl [facility] Albumin 3.9 3.5 - 5.0 g/dl [facility] BUN 16Comment: 9 - 20 mg/dl [facility] GROUP hemolyzed. LABORATORY Results may be affected. Creatinine 0.7 (L) 0.8 - 1.5 mg/dl [facility] Glucose 426 (H) 70 - 99 mg/dl [facility] Total Protein 7.1 6.3 - 8.2 g/dl [facility] Total Bilirubin 1.7 (H) 0.0 - 1.1 MG/DL [facility] AST 76 (H)Comment: 17 - 59 U/L [facility] GROUP hemolyzed. LABORATORY Results may be affected. ALT 110 (H)Comment: 21 - 72 U/L [facility] GROUP hemolyzed. LABORATORY Results may be affected. Alkaline 413 (H)Comment: 40 - 150 U/L [facility] Phosphatase [facility] GROUP hemolyzed. LABORATORY Results may be affected. eGFR >60 See Interpretation [facility] Comment: Below ml/min/1.73ml GROUP Estimated GFR [...] Study Equation which can be found at: https://www.kidney.org/content/usbb-kcndl-ggyjodsp BUN/Creatinine 23 (H) 6 - 22 RATIO [facility] LABORATORY Anion Gap 9 3 - 11 mmol/L [facility] A/G Ratio 1.2 0.8 - 2.0 ratio [facility] Specimen Blood - Blood specimen (specimen) Performing Organization Address City/State/Zipcode Phone Number [facility] [address] [facility] [place] [address] CBC WITH DIFFERENTIAL (09/22/2019 5:31 AM EST) WBC Count 5.92 4.23 - 9.07 K/uL [facility] RBC Count 4.16 (L) 4.30 - 5.89 M/UL [facility] Hemoglobin 13.5 (L) 13.7 - 17.5 g/dL [facility] Hematocrit 41.1 40.1 - 51.0 % [facility] MCV 98.8 (H) 79.0 - 92.2 FL [facility] MCH 32.5 (H) 25.7 - 32.2 PG [facility] MCHC 32.8 32.3 - 36.5 g/dL [facility] Platelet Count 192 163 - 337 K/uL [facility] MPV 13.7 (H) 9.4 - 12.4 FL [facility] RDW 16.1 (H) 11.6 - 14.4 % [facility] Neutrophil % 48.3 34.0 - 67.9 % [facility] Lymphocyte % 36.7 21.8 - 53.1 % [facility] Monocyte % 10.1 5.3 - 12.2 % [facility] Eosinophil % 2.5 0.8 - 7.0 % [facility] Basophil % 1.4 (H) 0.2 - 1.2 % [facility] nRBC % 0.0 0.0 - 0.2 % [facility] Neutrophil # 2.86 1.78 - 5.38 K/UL [facility] Lymphocyte # 2.17 1.32 - 3.57 K/UL [facility] Monocyte # 0.60 0.30 - 0.82 K/UL [facility] Eosinophil # 0.15 0.04 - 0.54 K/UL [facility] Basophil # 0.08 0.01 - 0.08 K/UL [facility] Immature Gran % 1.0 (H) 0.0 - 0.4 % [facility] Immature Gran # 0.06 (H) 0.00 - 0.03 K/uL [facility] NRBC # 0.00 0.00 - 0.12 K/uL [facility] Specimen Blood - Blood specimen (specimen) Performing Organization Address City/State/Zipcode Phone Number [facility] [address] [place] [address] GLUCOSE (POCT) (09/22/2019 2:20 AM EST) Glucose POCT 279 (H) 70 - 99 mg/dl POINT OF CARE Result Comment: TESTING Performed at: [facility] POCT Carlito Gomez MD, Laboratory Director Of Ancillary Services [address] [place] [address] Specimen Performing Organization Address [facility] Phone Number POINT OF CARE TESTING GLUCOSE (POCT) (09/21/2019 8:55 PM EST) Glucose POCT 326 (H) 70 - 99 mg/dl POINT OF CARE Result Comment: TESTING Performed at: [facility] POCT Carlito Gomez MD, Laboratory Director Of Ancillary Services [address] [place] [address] Specimen Performing Organization Address [facility] Phone Number POINT OF CARE TESTING GLUCOSE (POCT) (09/21/2019 4:20 PM EST) Glucose POCT 248 (H) 70 - 99 mg/dl POINT OF CARE Result Comment: TESTING Performed at: [facility] POCT Carlito Gomez MD, Laboratory Director Of Ancillary Services [address] [place] [address] Specimen Performing Organization Address [facility] Phone Number POINT OF CARE TESTING XR RIBS UNILAT WITH PA CHEST MIN 3 VIEWS RIGHT (09/21/2019 2:15 PM EST) Specimen Impressions Performed At No rib fractures are seen. No acute pathology. THIS DOCUMENT HAS BEEN ELECTRONICALLY SIGNED BY LARS BHAKTA MD Narrative Performed At PROCEDURE INFORMATION: Exam: XR Right Ribs with PA Chest, 3 Views Exam date and time: 09/21/2019 14:08 Age: 44 years old Clinical indication: Rib pain and mass overlying the last rib anteriorly. TECHNIQUE: Imaging protocol: XR Right ribs 3 views with PA chest. COMPARISON: DX XR CHEST 1 VIEW 06/09/2019 09:48 FINDINGS: Lungs: No airspace consolidation. Probable minor scarring at the left lung base. Pleural space: No pleural effusion. No pneumothorax. Heart/Mediastinum: No cardiomegaly. Diaphragm: Mild elevation of the left hemidiaphragm laterally is more pronounced than prior. The appearance suggests old scarring or other cause of volume loss. Bones/joints: No rib fractures are seen. Procedure Note Interface, Rad Results - 09/21/2019 6:13 PM EST PROCEDURE INFORMATION: Exam: XR Right Ribs with PA Chest, 3 Views Exam date and time: 09/21/2019 14:08 Age: 44 years old Clinical indication: Rib pain and mass overlying the last rib anteriorly. TECHNIQUE: Imaging protocol: XR Right ribs 3 views with PA chest. COMPARISON: DX XR CHEST 1 VIEW 06/09/2019 09:48 FINDINGS: Lungs: No airspace consolidation. Probable minor scarring at the left lung base. Pleural space: No pleural effusion. No pneumothorax. Heart/Mediastinum: No cardiomegaly. Diaphragm: Mild elevation of the left hemidiaphragm laterally is more pronounced than prior. The appearance suggests old scarring or other cause of volume loss. Bones/joints: No rib fractures are seen. IMPRESSION No rib fractures are seen. No acute pathology. THIS DOCUMENT HAS BEEN ELECTRONICALLY SIGNED BY LARS BHAKTA MD GLUCOSE (POCT) (09/21/2019 12:17 PM EST) Glucose POCT 473 (H) 70 - 99 mg/dl POINT OF CARE Result Comment: TESTING Performed at: [facility] POCT Carlito Gomez MD, Laboratory Director Of Ancillary Services [address] [place] [address] Specimen Performing Organization Address City/State/Zipcode Phone Number POINT OF CARE TESTING COMPREHENSIVE METABOLIC PANEL (09/21/2019 10:51 AM EST) Sodium 134 134 - 145 mmol/L [facility] Potassium 4.8Comment: 3.5 - 5.1 mmol/L [facility] GROUP hemolyzed. LABORATORY Results may be affected. Chloride 100 98 - 107 mmol/L [facility] CO2 26 22 - 30 mmol/L [facility] Calcium 9.0 8.3 - 10.1 mg/dl [facility] Albumin 3.8 3.5 - 5.0 g/dl [facility] BUN 12Comment: 9 - 20 mg/dl [facility] hemolyzed. LABORATORY Results may be affected. Creatinine 0.7 (L) 0.8 - 1.5 mg/dl [facility] Glucose 432 (H) 70 - 99 mg/dl [facility] Total Protein 6.7 6.3 - 8.2 g/dl [facility] Total Bilirubin 1.8 (H) 0.0 - 1.1 MG/DL [facility] AST 65 (H)Comment: 17 - 59 U/L [facility] GROUP hemolyzed. LABORATORY Results may be affected. ALT 151 (H)Comment: 21 - 72 U/L [facility] GROUP hemolyzed. LABORATORY Results may be affected. Alkaline 406 (H)Comment: 40 - 150 U/L [facility] Phosphatase [facility] GROUP hemolyzed. LABORATORY Results may be affected. eGFR >60 See Interpretation [facility] Comment: Below ml/min/1.73ml GROUP Estimated GFR [...] Study Equation which can be found at: https://www.kidney.org/content/hlpi-hygef-ahipracp BUN/Creatinine 17 6 - 22 RATIO [facility] LABORATORY Anion Gap 8 3 - 11 mmol/L [facility] A/G Ratio 1.3 0.8 - 2.0 ratio [facility] Specimen Blood - Blood specimen (specimen) Performing Organization Address City/State/Zipcode Phone Number [facility] [address] [place] [address] [phone] US ABDOMEN LIMITED (09/21/2019 10:09 AM EST) Specimen Impressions Performed At The palpable area seems to correspond to the more prominent portion of the rib which has a smooth contour and probably should be further evaluated with a rib series, if clinically indicated Urgency: Routine. This is a routine medical imaging report. Recommendation: No specific imaging recommendation. Signed by Phillip Jacobs DO on 09/21/2019 10:21 AM Narrative Performed At Procedure(s): US ABDOMEN LIMITED Date of service: 09/21/2019 9:45 AM Provided clinical information: 44 years, Male, "Abd mass, palpable, non-pulsatile" Procedure and materials: Standard protocol. Comparison studies: None Observations: Ultrasound of the questioned palpable mass located in the right upper quadrant of the abdomen demonstrates that the palpable area seems to correspond to a portion of a rib which appears more prominent than on the ribs. However, the contour is smooth. No definite soft tissue or cystic masses seen. The muscle fat planes are within normal limits. OTHER: None Procedure Note Interface, Rad Results - 09/21/2019 10:23 AM EST Procedure(s): US ABDOMEN LIMITED Date of service: 09/21/2019 9:45 AM Provided clinical information: 44 years, Male, "Abd mass, palpable, non-pulsatile" Procedure and materials: Standard protocol. Comparison studies: None Observations: Ultrasound of the questioned palpable mass located in the right upper quadrant of the abdomen demonstrates that the palpable area seems to correspond to a portion of a rib which appears more prominent than on the ribs. However, the contour is smooth. No definite soft tissue or cystic masses seen. The muscle fat planes are within normal limits. OTHER: None IMPRESSION The palpable area seems to correspond to the more prominent portion of the rib which has a smooth contour and probably should be further evaluated with a rib series, if clinically indicated Urgency: Routine. This is a routine medical imaging report. Recommendation: No specific imaging recommendation. Signed by Phillip Jacobs DO on 09/21/2019 10:21 AM CBC WITH DIFFERENTIAL (09/21/2019 8:37 AM EST) WBC Count 6.72 4.23 - 9.07 K/uL [facility] RBC Count 3.85 (L) 4.30 - 5.89 M/UL [facility] Hemoglobin 12.5 (L) 13.7 - 17.5 g/dL [facility] Hematocrit 36.9 (L) 40.1 - 51.0 % [facility] MCV 95.8 (H) 79.0 - 92.2 FL [facility] MCH 32.5 (H) 25.7 - 32.2 PG [facility] MCHC 33.9 32.3 - 36.5 g/dL [facility] Platelet Count 287 163 - 337 K/uL [facility] MPV 11.2 9.4 - 12.4 FL [facility] RDW 15.7 (H) 11.6 - 14.4 % [facility] Neutrophil % 52.9 34.0 - 67.9 % [facility] Lymphocyte % 33.5 21.8 - 53.1 % [facility] Monocyte % 9.8 5.3 - 12.2 % [facility] Eosinophil % 2.1 0.8 - 7.0 % [facility] Basophil % 1.0 0.2 - 1.2 % [facility] nRBC % 0.0 0.0 - 0.2 % [facility] Neutrophil # 3.55 1.78 - 5.38 K/UL [facility] Lymphocyte # 2.25 1.32 - 3.57 K/UL [facility] Monocyte # 0.66 0.30 - 0.82 K/UL [facility] Eosinophil # 0.14 0.04 - 0.54 K/UL [facility] Basophil # 0.07 0.01 - 0.08 K/UL [facility] Immature Gran % 0.7 (H) 0.0 - 0.4 % [facility] Immature Gran # 0.05 (H) 0.00 - 0.03 K/uL [facility] NRBC # 0.00 0.00 - 0.12 K/uL [facility] Specimen Blood - Blood specimen (specimen) Performing Organization Address City/[facility] Phone Number [facility] LABORATORY [address] [place] [address] [phone] GLUCOSE (POCT) (09/21/2019 7:34 AM EST) Glucose POCT 349 (H) 70 - 99 mg/dl POINT OF CARE Result Comment: TESTING Performed at: [facility] POCT Carlito Gomez MD, Laboratory Director Of Ancillary Services [address] [place] [address] Specimen Performing Organization Address [facility] Phone Number POINT OF CARE TESTING GLUCOSE (POCT) (09/20/2019 9:04 PM EST) Glucose POCT 223 (H) 70 - 99 mg/dl POINT OF CARE Result Comment: TESTING Performed at: [facility] POCT Carlito Gomez MD, Laboratory Director Of Ancillary Services 1 [facility] [place] [address] Specimen Performing Organization Address City/[facility] Phone Number POINT OF CARE TESTING GLUCOSE (POCT) (09/20/2019 4:33 PM EST) Glucose POCT 176 (H) 70 - 99 mg/dl POINT OF CARE Result Comment: TESTING Performed at: [facility] POCT Carlito Gomez MD, Laboratory Director Of Ancillary Services [address] [place] [address] Specimen Performing Organization Address [facility] Phone Number POINT OF CARE TESTING GLUCOSE (POCT) (09/20/2019 11:30 AM EST) Glucose POCT 339 (H) 70 - 99 mg/dl POINT OF CARE Result Comment: TESTING Performed at: [facility] POCT Carlito Gomez MD, Laboratory Director Of Ancillary Services [address] [address] Specimen Performing Organization Address [facility] Phone Number POINT OF CARE TESTING GLUCOSE (POCT) (09/20/2019 7:27 AM EST) Glucose POCT 146 (H) 70 - 99 mg/dl POINT OF CARE Result Comment: TESTING Performed at: [facility] POCT Carlito Gomez MD, Laboratory Director Of Ancillary Services [address] [place] [address] Specimen Performing Organization Address [facility] Phone Number POINT OF CARE TESTING LIPASE (09/20/2019 7:02 AM EST) Lipase 50 23 - 300 U/L [facility] Specimen Blood - Blood specimen (specimen) Performing Organization Address [facility] Phone Number [facility] [address] [place] [place] [address] [phone] COMPREHENSIVE METABOLIC PANEL (09/20/2019 7:02 AM EST) Sodium 136 134 - 145 mmol/L [facility] Potassium 4.0 3.5 - 5.1 mmol/L [facility] Chloride 99 98 - 107 mmol/L [facility] CO2 32 (H) 22 - 30 mmol/L [facility] Calcium 9.1 8.3 - 10.1 mg/dl [facility] Albumin 3.5 3.5 - 5.0 g/dl [facility] BUN 13 9 - 20 mg/dl [facility] Creatinine 0.6 (L) 0.8 - 1.5 mg/dl [facility] Glucose 139 (H) 70 - 99 mg/dl [facility] Total Protein 6.5 6.3 - 8.2 g/dl [facility] Total Bilirubin 1.8 (H) 0.0 - 1.1 MG/DL [facility] AST 58 17 - 59 U/L [facility] ALT 177 (H) 21 - 72 U/L [facility] Alkaline 371 (H) 40 - 150 U/L [facility] Phosphatase [facility] LABORATORY eGFR >60 See Interpretation [facility] Comment: Below ml/min/1.73ml GROUP Estimated GFR [...] Study Equation which can be found at: https://www.kidney.org/content/dfky-gdbot-fbneoccf BUN/Creatinine 22 6 - 22 RATIO [facility] LABORATORY Anion Gap 5 3 - 11 mmol/L [facility] A/G Ratio 1.2 0.8 - 2.0 ratio [facility] Specimen Blood - Blood specimen (specimen) Performing Organization Address City/State/Zipcode Phone Number [facility] [address] [place] [address] CBC WITH DIFFERENTIAL (09/20/2019 7:02 AM EST) WBC Count 6.36 4.23 - 9.07 K/uL [facility] RBC Count 3.95 (L) 4.30 - 5.89 M/UL [facility] Hemoglobin 13.1 (L) 13.7 - 17.5 g/dL [facility] Hematocrit 38.3 (L) 40.1 - 51.0 % [facility] MCV 97.0 (H) 79.0 - 92.2 FL [facility] MCH 33.2 (H) 25.7 - 32.2 PG [facility] MCHC 34.2 32.3 - 36.5 g/dL [facility] Platelet Count 282 163 - 337 K/uL [facility] MPV 10.9 9.4 - 12.4 FL [facility] RDW 15.9 (H) 11.6 - 14.4 % [facility] Neutrophil % 56.3 34.0 - 67.9 % [facility] Lymphocyte % 30.5 21.8 - 53.1 % [facility] Monocyte % 9.1 5.3 - 12.2 % [facility] Eosinophil % 2.2 0.8 - 7.0 % [facility] Basophil % 1.4 (H) 0.2 - 1.2 % [facility] nRBC % 0.0 0.0 - 0.2 % [facility] Neutrophil # 3.58 1.78 - 5.38 K/UL [facility] Lymphocyte # 1.94 1.32 - 3.57 K/UL [facility] Monocyte # 0.58 0.30 - 0.82 K/UL [facility] Eosinophil # 0.14 0.04 - 0.54 K/UL [facility] Basophil # 0.09 (H) 0.01 - 0.08 K/UL [facility] Immature Gran % 0.5 (H) 0.0 - 0.4 % [facility] Immature Gran # 0.03 0.00 - 0.03 K/uL [facility] NRBC # 0.00 0.00 - 0.12 K/uL [facility] Specimen Blood - Blood specimen (specimen) Performing Organization Address City/[facility] Phone Number [facility] [address] [place] [place] [address] GLUCOSE (POCT) (09/19/2019 8:44 PM EST) [facility] Glucose POCT 178 (H) 70 - 99 mg/dl POINT OF CARE Result Comment: TESTING Performed at: [facility] POCT Carlito Gomez MD, Laboratory Director Of Ancillary Services [address] [address] Specimen Performing Organization Address [facility] Phone Number POINT OF CARE TESTING GLUCOSE (POCT) (09/19/2019 5:01 PM EST) Glucose POCT 237 (H) 70 - 99 mg/dl POINT OF CARE Result Comment: TESTING Performed at: [facility] POCT Carlito Gomez MD, Laboratory Director Of Ancillary Services [address] [address] Specimen Performing Organization Address City/[facility] Phone Number POINT OF CARE TESTING GLUCOSE (POCT) (09/19/2019 11:25 AM EST) Glucose POCT 342 (H) 70 - 99 mg/dl POINT OF CARE Result Comment: TESTING Performed at: [facility] POCT Carlito Gomez MD, Laboratory Director Of Ancillary Services [address] [address] Specimen Performing Organization Address [facility] Phone Number POINT OF CARE TESTING GLUCOSE (POCT) (09/19/2019 8:04 AM EST) Glucose POCT 143 (H) 70 - 99 mg/dl POINT OF CARE Result Comment: TESTING Performed at: [facility] POCT Carlito Gomez MD, Laboratory Director Of Ancillary Services [address] [address] Specimen Performing Organization Address City/[facility] Phone Number POINT OF CARE TESTING COMPREHENSIVE METABOLIC PANEL (09/19/2019 5:21 AM EST) Sodium 137 134 - 145 mmol/L [facility] Potassium 4.3Comment: 3.5 - 5.1 mmol/L [facility] GROUP hemolyzed. LABORATORY Results may be affected. Chloride 104 98 - 107 mmol/L [facility] CO2 28 22 - 30 mmol/L [facility] Calcium 8.7 8.3 - 10.1 mg/dl [facility] Albumin 3.6 3.5 - 5.0 g/dl [facility] BUN 6 (L)Comment: 9 - 20 mg/dl [facility] GROUP hemolyzed. LABORATORY Results may be affected. Creatinine 0.6 (L) 0.8 - 1.5 mg/dl [facility] Glucose 75 70 - 99 mg/dl [facility] Total Protein 6.7 6.3 - 8.2 g/dl [facility] Total Bilirubin 2.7 (H) 0.0 - 1.1 MG/DL [facility] AST 117 (H)Comment: 17 - 59 U/L [facility] Slightly GROUP hemolyzed. LABORATORY Results may be affected. ALT 232 (H)Comment: 21 - 72 U/L [facility] Slightly GROUP hemolyzed. LABORATORY Results may be affected. Alkaline 399 (H)Comment: 40 - 150 U/L [facility] Phosphatase Slightly GROUP hemolyzed. LABORATORY Results may be affected. eGFR >60 See Interpretation [facility] Comment: Below ml/min/1.73ml GROUP Estimated GFR [...] Study Equation which can be found at: https://www.kidney.org/content/yxuz-edngy-dgskcdcb BUN/Creatinine 10 6 - 22 RATIO [facility] LABORATORY Anion Gap 5 3 - 11 mmol/L [facility] A/G Ratio 1.2 0.8 - 2.0 ratio [facility] Specimen Blood - Blood specimen (specimen) Performing Organization Address City/State/Zipcode Phone Number [facility] [address] [place] [address] CBC WITH DIFFERENTIAL (09/19/2019 5:21 AM EST) WBC Count 7.60 4.23 - 9.07 K/uL [facility] RBC Count 4.27 (L) 4.30 - 5.89 M/UL [facility] Hemoglobin 14.0 13.7 - 17.5 g/dL [facility] Hematocrit 40.1 40.1 - 51.0 % [facility] MCV 93.9 (H) 79.0 - 92.2 FL [facility] MCH 32.8 (H) 25.7 - 32.2 PG [facility] MCHC 34.9 32.3 - 36.5 g/dL [facility] Platelet Count 120 (L) 163 - 337 K/uL [facility] MPV 11.3 9.4 - 12.4 FL [facility] RDW 16.0 (H) 11.6 - 14.4 % [facility] Neutrophil % 59.4 34.0 - 67.9 % [facility] Lymphocyte % 29.6 21.8 - 53.1 % [facility] Monocyte % 7.9 5.3 - 12.2 % [facility] Eosinophil % 1.7 0.8 - 7.0 % [facility] Basophil % 0.9 0.2 - 1.2 % [facility] nRBC % 0.0 0.0 - 0.2 % [facility] Neutrophil # 4.51 1.78 - 5.38 K/UL [facility] Lymphocyte # 2.25 1.32 - 3.57 K/UL [facility] Monocyte # 0.60 0.30 - 0.82 K/UL [facility] Eosinophil # 0.13 0.04 - 0.54 K/UL [facility] Basophil # 0.07 0.01 - 0.08 K/UL [facility] Immature Gran % 0.5 (H) 0.0 - 0.4 % [facility] Immature Gran # 0.04 (H) 0.00 - 0.03 K/uL [facility] NRBC # 0.00 0.00 - 0.12 K/uL [facility] Specimen Blood - Blood specimen (specimen) Performing Organization Address City/[facility] Phone Number [facility] [address] [address] GLUCOSE (POCT) (09/18/2019 8:43 PM EST) [facility] Glucose POCT 357 (H) 70 - 99 mg/dl POINT OF CARE Result Comment: TESTING Performed at: [facility] POCT Carlito Gomez MD, Laboratory Director Of Ancillary Services [address] [address] Specimen Performing Organization Address [facility] Phone Number POINT OF CARE TESTING GLUCOSE (POCT) (09/18/2019 4:50 PM EST) Glucose POCT 143 (H) 70 - 99 mg/dl POINT OF CARE Result Comment: TESTING Performed at: [facility] POCT Carlito Gomez MD, Laboratory Director Of Ancillary Services [address] [address] Specimen Performing Organization Address [facility] Phone Number POINT OF CARE TESTING GLUCOSE (POCT) (09/18/2019 12:07 PM EST) Glucose POCT 152 (H) 70 - 99 mg/dl POINT OF CARE Result Comment: TESTING Performed at: [facility] POCT Carlito Gomez MD, Laboratory Director Of Ancillary Services [address] [place] [address] Specimen Performing Organization Address [facility] Phone Number POINT OF CARE TESTING GLUCOSE (POCT) (09/18/2019 8:54 AM EST) Glucose POCT 69 (L) 70 - 99 mg/dl POINT OF CARE Result Comment: TESTING Performed at: [facility] POCT Carlito Gomez MD, Laboratory Director Of Ancillary Services [address] [address] Specimen Performing Organization Address [facility] Phone Number POINT OF CARE TESTING COMPREHENSIVE METABOLIC PANEL (09/18/2019 7:07 AM EST) Sodium 136 134 - 145 mmol/L [facility] Potassium 4.3Comment: 3.5 - 5.1 mmol/L [facility] Slightly GROUP hemolyzed. LABORATORY Results may be affected. Chloride 102 98 - 107 mmol/L [facility] CO2 26 22 - 30 mmol/L [facility] Calcium 8.8 8.3 - 10.1 mg/dl [facility] Albumin 3.5 3.5 - 5.0 g/dl [facility] BUN 9Comment: Slightly 9 - 20 mg/dl [facility] hemolyzed. GROUP Results may be LABORATORY affected. Creatinine 0.6 (L) 0.8 - 1.5 mg/dl [facility] Glucose 299 (H) 70 - 99 mg/dl [facility] Total Protein 6.6 6.3 - 8.2 g/dl [facility] Total Bilirubin 4.8 (H) 0.0 - 1.1 MG/DL [facility] AST 226 (H)Comment: 17 - 59 U/L [facility] Slightly GROUP hemolyzed. LABORATORY Results may be affected. ALT 312 (H)Comment: 21 - 72 U/L [facility] Slightly GROUP hemolyzed. LABORATORY Results may be affected. Alkaline 485 (H)Comment: 40 - 150 U/L [facility] Phosphatase Slightly GROUP hemolyzed. LABORATORY Results may be affected. eGFR >60 See Interpretation [facility] Comment: Below ml/min/1.73ml GROUP Estimated GFR [...] Study Equation which can be found at: https://www.kidney.org/content/awka-kcohy-jnydjotb BUN/Creatinine 15 6 - 22 RATIO [facility] GROUP LABORATORY Anion Gap 8 3 - 11 mmol/L [facility] A/G Ratio 1.1 0.8 - 2.0 ratio [facility] Specimen Blood - Blood specimen (specimen) Performing Organization Address City/State/Zipcode Phone Number [facility] [address] [place], [place] [id number] [phone] CBC WITH DIFFERENTIAL (09/18/2019 7:07 AM EST) WBC Count 9.20 (H) 4.23 - 9.07 K/uL [facility] RBC Count 4.44 4.30 - 5.89 M/UL [facility] Hemoglobin 14.4 13.7 - 17.5 g/dL [facility] Hematocrit 41.5 40.1 - 51.0 % [facility] MCV 93.5 (H) 79.0 - 92.2 FL [facility] MCH 32.4 (H) 25.7 - 32.2 PG [facility] MCHC 34.7 32.3 - 36.5 g/dL [facility] Platelet Count 238 163 - 337 K/uL [facility] MPV 11.7 9.4 - 12.4 FL [facility] RDW 15.9 (H) 11.6 - 14.4 % [facility] Neutrophil % 70.4 (H) 34.0 - 67.9 % [facility] Lymphocyte % 19.9 (L) 21.8 - 53.1 % [facility] Monocyte % 7.9 5.3 - 12.2 % [facility] Eosinophil % 0.7 (L) 0.8 - 7.0 % [facility] Basophil % 0.7 0.2 - 1.2 % [facility] nRBC % 0.0 0.0 - 0.2 % [facility] Neutrophil # 6.48 (H) 1.78 - 5.38 K/UL [facility] Lymphocyte # 1.83 1.32 - 3.57 K/UL [facility] Monocyte # 0.73 0.30 - 0.82 K/UL [facility] Eosinophil # 0.06 0.04 - 0.54 K/UL [facility] Basophil # 0.06 0.01 - 0.08 K/UL [facility] Immature Gran % 0.4 0.0 - 0.4 % [facility] Immature Gran # 0.04 (H) 0.00 - 0.03 K/uL [facility] NRBC # 0.00 0.00 - 0.12 K/uL [facility] Specimen Blood - Blood specimen (specimen) Performing Organization Address City/[facility] Phone Number [facility] [address] [address] GLUCOSE (POCT) (09/18/2019 5:24 AM EST) [facility] Glucose POCT 394 (H) 70 - 99 mg/dl POINT OF CARE Result Comment: TESTING Performed at: [facility] POCT Carlito Gomez MD, Laboratory Director Of Ancillary Services [address] [address] Specimen Performing Organization Address [facility] Phone Number POINT OF CARE TESTING GLUCOSE (POCT) (09/18/2019 1:22 AM EST) Glucose POCT 352 (H) 70 - 99 mg/dl POINT OF CARE Result Comment: TESTING Performed at: [facility] POCT Carlito Gomez MD, Laboratory Director Of Ancillary Services [address] [address] Specimen Performing Organization Address City/[facility] Phone Number POINT OF CARE TESTING GLUCOSE (POCT) (09/17/2019 9:06 PM EST) Glucose POCT 193 (H) 70 - 99 mg/dl POINT OF CARE Result Comment: TESTING Performed at: [facility] POCT Carlito Gomez MD, Laboratory Director Of Ancillary Services [address] [place] [address] Specimen Performing Organization Address City/[facility] Phone Number POINT OF CARE TESTING GLUCOSE (POCT) (09/17/2019 5:10 PM EST) Glucose POCT 76 70 - 99 mg/dl POINT OF CARE Result Comment: TESTING Performed at: [facility] POCT Carlito Gomez MD, Laboratory Director Of Ancillary Services [address] [address] Specimen Performing Organization Address City/[facility] Phone Number POINT OF CARE TESTING XR ERCP BILIARY (09/17/2019 1:06 PM EST) Specimen Impressions Performed At Fluoroscopic assistance for ERCP exam. Urgency: Routine. This is a routine medical imaging report. Recommendation: No specific imaging recommendation. Signed by Nick Alarcon MD on 09/17/2019 1:08 PM Narrative Performed At Procedure(s): XR ERCP BILIARY Date of service: 09/17/2019 11:32 AM Provided clinical information: 44 years, Male, "possible cholangitis" Procedure and materials: Intraoperative fluoroscopy Comparison studies: None. Observations: Fluoroscopic assistance for ERCP exam 10 seconds fluoroscopic time utilized. Procedure Note Interface, Rad Results - 09/17/2019 1:10 PM EST Procedure(s): XR ERCP BILIARY Date of service: 09/17/2019 11:32 AM Provided clinical information: 44 years, Male, "possible cholangitis" Procedure and materials: Intraoperative fluoroscopy Comparison studies: None. Observations: Fluoroscopic assistance for ERCP exam 10 seconds fluoroscopic time utilized. IMPRESSION Fluoroscopic assistance for ERCP exam. Urgency: Routine. This is a routine medical imaging report. Recommendation: No specific imaging recommendation. Signed by Nick Alarcon MD on 09/17/2019 1:08 PM GLUCOSE (POCT) (09/17/2019 1:06 PM EST) Glucose POCT 104 (H) 70 - 99 mg/dl POINT OF CARE Result Comment: TESTING Performed at: [facility] POCT Carlito Gomez MD, Laboratory Director Of Ancillary Services [address] [facility] [place] [address] Specimen Performing Organization Address [facility] Phone Number POINT OF CARE TESTING TISSUE EXAM (09/17/2019 12:20 PM EST) Case Report Surgical Pathology Case: [id number] [facility] Authorizing Provider: Sánchez Boateng MD Collected: 09/17/2019 12:20 PM GROUP LABORATORY Ordering Location: [facility] Received: 09/17/2019 01:35 PM Pathologist: Phillip Kang MD Specimen: GASTRIC BIOPSY, Gastric biopsy Pre-Op Diagnosis No Dx found. [facility] Post-Op Diagnosis No Dx found. [facility] FINAL DIAGNOSIS Stomach, biopsies: [facility] Electronically signed Fragments of GROUP LABORATORY by na Kang MD on gastric oxyntic 09/18/2019 at 12:31 PM mucosa; no H. pylori organisms are seen on the routine stain. Microscopic Microscopic [facility] Description examination is GROUP LABORATORY performed. Gross Description 1. The specimen is received in formalin labeled, with the patient's name, MRN, and Gastric biopsy and consists of 2-minute simmons-pink soft tissue fragments ranging in size from 0.3 to 0.4 cm. These fragments are totally submitted in cassette 1A. [facility] MM Gross description is reviewed before signout by Phillip Kang MD Disclaimer Gross description is performed at the [facility], [address] [place] [address]. [facility] All technical components are performed at the [facility], [address] [place] [address]. Specimen Tissue - Gastric biopsy sample (specimen) Performing Organization Address [facility] Phone Number [facility] [address] [facility] [place] [address] [phone] UPPER GI ENDOSCOPY REPORT (09/17/2019 11:39 AM EST) Upper GI endoscopy [facility] PROVATION __ Patient Name: Ryder Chinchilla Procedure Date: 09/17/2019 11:39 AM Date of : 1975 Admit Type: Inpatient Age: 44 Room: 16 Gender: Male Note Status: Finalized Attending MD: SÁNCHEZ BOATENG MD Instrument Name: [id number] __ Procedure: Upper GI endoscopy Indications: Abnormal MRI of the GI tract, Gastric Wall Thickening. Providers: SÁNCHEZ BOATENG MD, Arabella Pritchard, BRAD (Nurse), Nicole Tuttle (Nurse) Referring MD: ROSA M MENSAH (Referring MD) Medicines: See the Anesthesia note for documentation of the administered medications Complications: No immediate complications. __ Procedure: The patient's current medications and allergies were reviewed and recorded in the nurses notes. The patient was made aware of the risk of the procedure which can include: bleeding, infection, perforation, an adverse reaction to sedation, and a risk of missed lesions, among others. The patient appeared to understand. An opportunity for questions was provided, and an informed consent form was signed. The scope was passed under direct vision. Throughout the procedure, the patient's blood pressure, pulse EKG, and oxygen saturations were monitored continuously. The Endoscope was introduced through the mouth, and advanced to the second part of duodenum. The Z-line was located at: The upper GI endoscopy was accomplished without difficulty. The patient tolerated the procedure well. Findings: The upper third of the esophagus, middle third of the esophagus, lower third of the esophagus and gastroesophageal junction were normal. Diffuse moderate inflammation characterized by congestion (edema) and erythema was found in the gastric body. Biopsies were taken with a cold forceps for histology. The gastric antrum was normal. The examined duodenum was normal. Impression: - Normal upper third of esophagus, middle third of esophagus, lower third of esophagus and gastroesophageal junction. - Gastritis. Biopsied. - Normal antrum. - Normal examined duodenum. Recommendation: - [facility]. - Perform an ERCP today. Procedure Code(s): --- Professional --- 60999, Esophagogastroduodenoscopy, flexible, transoral; with biopsy, single or multiple Diagnosis Code(s): --- Professional --- K29.70, Gastritis, unspecified, without bleeding R93.3, Abnormal findings on diagnostic imaging of other parts of digestive tract CPT copyright 2017 [employer]. All rights reserved. The codes documented in this report are preliminary and upon teaching specialists review may be revised to meet current compliance requirements. SÁNCHEZ BOATENG MD 09/17/2019 12:21:53 PM This report has been signed electronically. Number of Addenda: 0 Note Initiated On: 09/17/2019 11:39 AM CC Letter to: JURGEN WILSON MD (CC) Estimated Blood Loss: Estimated blood loss: none. Specimen Performing Organization Address City/State/Zipcode Phone Number PROVATION ERCP NOTE (09/17/2019 11:37 AM EST) ERCP [facility] PROVATION __ Patient Name: Ryder Chinchilla Procedure Date: 09/17/2019 11:37 AM Date of : 1975 Admit Type: Inpatient Age: 44 Room: 16 Gender: Male Note Status: Finalized Attending MD: SÁNCHEZ BOATENG MD Instrument Name: [id number] [id number] ERCP __ Procedure: ERCP Indications: Suspected ascending cholangitis Providers: SÁNCHEZ BOATENG MD, Arabella Pritchard RN (Nurse), Nicole Tuttle (Nurse) Patient Profile: This is a 44 year old male. Referring MD: ROSA M MENSAH (Referring MD) Medicines: See the Anesthesia note for documentation of the administered medications Complications: No immediate complications. __ Procedure: After obtaining informed consent, the scope was passed under direct vision. Throughout the procedure, the patient's blood pressure, pulse, and oxygen saturations were monitored continuously. The Duodenoscope was introduced through the mouth, and used to inject contrast into and used to inject contrast into the bile duct. The ERCP was accomplished without difficulty. The patient tolerated the procedure well. Findings: The talent scout film was normal. A 0.035 inch x 260 cm straight Dreamwire was passed into the biliary tree. The Dreamtome sphincterotome was passed over the guidewire and the bile duct was then deeply cannulated. Contrast was injected. I personally interpreted the bile duct images. Ductal flow of contrast was adequate. Image quality was excellent. Contrast extended to the entire biliary tree. A 10 mm biliary sphincterotomy was made with a monofilament Dreamtome sphincterotome using ERBE electrocautery. There was no post-sphincterotomy bleeding. The biliary tree was swept with a 12 mm balloon starting at the bifurcation. Sludge was swept from the duct. Occlusion cholangiogram did not reveal any stricture or filling defects. Impression: - A biliary sphincterotomy was performed. - The biliary tree was swept and sludge was found. Recommendation: - [facility] care. - Clear liquid diet today. - Continue present medications. - Observe patient's clinical course. - Cipro (ciprofloxacin) 500 mg PO BID for 10 days. - call GI in case of fever, abdominal pain or rectal bleeding post procedure. Procedure Code(s): --- Professional --- 30705, Endoscopic retrograde cholangiopancreatography (ERCP); with removal of calculi/debris from biliary/pancreatic duct(s) 92837, Endoscopic retrograde cholangiopancreatography (ERCP); with sphincterotomy/papillotomy 59624, Endoscopic catheterization of the biliary ductal system, radiological supervision and interpretation CPT copyright 2017 [employer]. All rights reserved. The codes documented in this report are preliminary and upon teaching specialists review may be revised to meet current compliance requirements. SÁNCHEZ BOATENG MD 09/17/2019 12:42:41 PM This report has been signed electronically. Number of Addenda: 0 Note Initiated On: 09/17/2019 11:37 AM CC Letter to: JURGEN WILSON MD (CC) Estimated Blood Loss: Estimated blood loss: none. Specimen Performing Organization Address City/State/Zipcode Phone Number PROVATION GLUCOSE (POCT) (09/17/2019 11:11 AM EST) Glucose POCT 65 (L) 70 - 99 mg/dl POINT OF CARE Result Comment: TESTING Performed at: [facility] POCT Carlito Gomez MD, Laboratory Director Of Ancillary Services [address] [place] [address] Specimen Performing Organization Address City/State/Zipcode Phone Number POINT OF CARE TESTING PTT (09/17/2019 9:22 AM EST) PTT 28.0Comment: 21.3 - 35.9 SEC [facility] Reference range [facility] updated 05/27/2019. Specimen Blood - Blood specimen (specimen) Performing Organization Address [facility] Phone Number [facility] [address] [address] [phone] INR/Protime (09/17/2019 9:22 AM EST) INR 0.90Comment: INR 0.88 - 1.13 [facility] Therapeutic Range: Ratio GROUP LABORATORY 2.0 - 3.5 Protime 12.0Comment: 12.0 - 14.5 sec [facility] Reference range GROUP [facility] updated 05/27/2019. Specimen Blood - Blood specimen (specimen) Performing Organization Address [facility] Phone Number [facility] [address] [place] [address] [phone] ADULT BLOOD CULTURE (09/17/2019 9:05 AM EST) ADULT BLOOD CULTURE No Growth in 5 [facility] LABORATORY Specimen Blood - Blood specimen (specimen) Performing Organization Address [facility] Number [facility] [address] [place] [address] [phone] ADULT BLOOD CULTURE (09/17/2019 9:00 AM EST) ADULT BLOOD CULTURE No Growth in 5 [facility] LABORATORY Specimen Blood - Blood specimen (specimen) Performing Organization Address [facility] Phone Number [facility] [address] [place] [id number] GLUCOSE (POCT) (09/17/2019 5:37 AM EST) [facility] Glucose POCT 72 70 - 99 mg/dl POINT OF CARE Result Comment: TESTING Performed at: [facility] POCT Carlito Gomez MD, Laboratory Director Of Ancillary Services [address] [place] [address] Specimen Performing Organization Address [facility] Phone Number POINT OF CARE TESTING MAGNESIUM LEVEL (09/17/2019 5:09 AM EST) Magnesium 1.9Comment: 1.6 - 2.3 MG/DL [facility] hemolyzed. GROUP LABORATORY Results may be affected. Specimen Blood - Blood specimen (specimen) Performing Organization Address City/State/Zipcode Phone Number [facility] [address] [facility] [place] [address] COMPREHENSIVE METABOLIC PANEL W/REFLEX MAGNESIUM (09/17/2019 5:09 AM EST) Sodium 138 134 - 145 mmol/L [facility] Potassium 3.8Comment: 3.5 - 5.1 mmol/L [facility] hemolyzed. LABORATORY Results may be affected. Chloride 105 98 - 107 mmol/L [facility] CO2 21 (L) 22 - 30 mmol/L [facility] Calcium 9.3 8.3 - 10.1 mg/dl [facility] Albumin 4.0 3.5 - 5.0 g/dl [facility] BUN 8 (L)Comment: 9 - 20 mg/dl [facility] hemolyzed. LABORATORY Results may be affected. Creatinine 0.6 (L) 0.8 - 1.5 mg/dl [facility] Glucose 61 (L) 70 - 99 mg/dl [facility] Total Protein 7.5 6.3 - 8.2 g/dl [facility] Total Bilirubin 3.0 (H) 0.0 - 1.1 MG/DL [facility] AST 247 (H)Comment: 17 - 59 U/L [facility] GROUP hemolyzed. LABORATORY Results may be affected. ALT 371 (H)Comment: 21 - 72 U/L [facility] hemolyzed. LABORATORY Results may be affected. Alkaline 554 (H)Comment: 40 - 150 U/L [facility] Phosphatase [facility] GROUP hemolyzed. LABORATORY Results may be affected. eGFR >60 See Interpretation [facility] Comment: Below ml/min/1.73ml GROUP Estimated GFR [...] Study Equation which can be found at: https://www.kidney.org/content/pcqn-qtsza-ztktayqp BUN/Creatinine 13 6 - 22 RATIO [facility] LABORATORY Anion Gap 12 (H) 3 - 11 mmol/L [facility] A/G Ratio 1.1 0.8 - 2.0 ratio [facility] Specimen Blood - Blood specimen (specimen) Performing Organization Address City/State/Zipcode Phone Number [facility] [address] [place] [address] CBC WITH DIFFERENTIAL (09/17/2019 5:09 AM EST) WBC Count 14.49 (H) 4.23 - 9.07 K/uL [facility] RBC Count 4.70 4.30 - 5.89 M/UL [facility] Hemoglobin 15.4 13.7 - 17.5 g/dL [facility] Hematocrit 45.0 40.1 - 51.0 % [facility] MCV 95.7 (H) 79.0 - 92.2 FL [facility] MCH 32.8 (H) 25.7 - 32.2 PG [facility] MCHC 34.2 32.3 - 36.5 g/dL [facility] Platelet Count 262 163 - 337 K/uL [facility] MPV 10.6 9.4 - 12.4 FL [facility] RDW 16.1 (H) 11.6 - 14.4 % [facility] Neutrophil % 74.2 (H) 34.0 - 67.9 % [facility] Lymphocyte % 16.6 (L) 21.8 - 53.1 % [facility] Monocyte % 7.0 5.3 - 12.2 % [facility] Eosinophil % 0.7 (L) 0.8 - 7.0 % [facility] Basophil % 0.8 0.2 - 1.2 % [facility] nRBC % 0.0 0.0 - 0.2 % [facility] Neutrophil # 10.76 (H) 1.78 - 5.38 K/UL [facility] Lymphocyte # 2.40 1.32 - 3.57 K/UL [facility] Monocyte # 1.02 (H) 0.30 - 0.82 K/UL [facility] Eosinophil # 0.10 0.04 - 0.54 K/UL [facility] Basophil # 0.11 (H) 0.01 - 0.08 K/UL [facility] Immature Gran % 0.7 (H) 0.0 - 0.4 % [facility] Immature Gran # 0.10 (H) 0.00 - 0.03 K/uL [facility] NRBC # 0.00 0.00 - 0.12 K/uL [facility] Specimen Blood - Blood specimen (specimen) Performing Organization Address [facility] Phone Number [facility] [address] [place] [address] CA 19-9 (09/17/2019 5:09 AM EST) Ca19-9 129 (H) <34 U/ML [facility] Comment: THIS TEST WAS PERFORMED USING THE SIEMENS CHEMILUMINESCENT METHOD. VALUES OBTAINED FROM DIFFERENT ASSAY METHODS CANNOT BE USED INTERCHANGEABLY. CA 19-9 LEVELS, REGARDLESS OF VALUE, SHOULD NOT BE INTERPRETED ABSOLUTE EVIDENCE OF THE PRESENCE OR ABSENCE OF DISEASE. Specimen Blood - Blood specimen (specimen) Performing Organization Address [facility] Phone Number [employer] [address] [place] [address] [place] [address] PROTHROMBIN TIME (09/17/2019 5:09 AM EST) INR 0.87 (L)Comment: INR 0.88 - 1.13 [facility] Therapeutic Range: Ratio GROUP LAB[facility]ATORY 2.0 - 3.5 Protime 11.7 (L)Comment: 12.0 - 14.5 sec [facility] Reference range GROUP [facility] updated 05/27/2019. Specimen Blood - Blood specimen (specimen) Performing Organization Address [facility] Phone Number [facility] [address] [place] [address] [phone] GLUCOSE (POCT) (09/17/2019 12:40 AM EST) Glucose POCT 106 (H) 70 - 99 mg/dl POINT OF CARE Result Comment: TESTING Performed at: [facility] POCT Carlito Gomez MD, Laboratory Director Of Ancillary Services [address] [place] [address] Specimen Performing Organization Address City/State/Zipcode Phone Number POINT OF CARE TESTING MR ABDOMEN W AND WO CONTRAST (09/16/2019 11:39 PM EST) Specimen Impressions Performed At Imaging findings are concerning for cholangitis although this is best excluded clinically. No intrahepatic or periductal abscess. No imaging findings of acute pancreatitis. Massive thickening of the of the gastric rugae, possibly secondary to gastritis. Endoscopy could be acquired to exclude other diagnostic etiologies such as malignancy or M?n?trier disease. Correlation with the patient's serum gastric levels could be acquired to exclude Angel-Lindsey syndrome. Chronic small subcapsular splenic hematoma. Signed by Delfino Wen MD on 09/17/2019 8:04 AM Narrative Performed At Procedure(s):MR ABDOMEN W AND WO CONTRAST Date of service: 09/16/2019 10:30 PM History: 44 years, Male, "RUQ pain" Technique: An MRI of the abdomen was performed utilizing multiplanar/multiecho technique. An MRCP was performed. Contrast: Intravenous contrast was administered. Findings: Lung bases: Normal. Liver: The liver demonstrates normal signal intensity and enhancement. There are no arterial phase enhancing lesions demonstrating pseudocapsule with washout suggestive of a hepatocellular carcinoma. Biliary system: There is mild nonsegmental diffuse intrahepatic ductal dilatation. There is mild epithelial thickening of the common bile duct associated with minimal enhancement. There is no periductal or intrahepatic abscess. The distal common bile duct is normal in caliber without findings of obstructive choledocholithiasis. There is small volume abdominal ascites. There is mild periductal edema. Gallbladder: There is mild thickening of the gallbladder wall favored reactive. No intraluminal gallstones or pericholecystic inflammation is evident. Kidneys: There is a stable uncomplicated left renal cyst. The kidneys otherwise demonstrate normal MRI appearance without detection of a focal renal mass or hydronephrosis. Pancreas: The patient is post partial pancreatectomy. The remnant pancreas within the uncinate process and pancreatic head demonstrates normal signal intensity without hypoenhancement or depiction of a pancreatic collection. There is no significant peripancreatic inflammation. Adrenals: The adrenal glands demonstrate normal MRI appearance. Spleen: A small remnant spleen is present within the left upper quadrant circumscribed by a chronic small left subcapsular hematoma. There is marked thickening and redundancy of the gastric rugae associated with enhancement and restricted diffusion favored secondary to gastritis. Procedure Note Interface, Rad Results - 09/17/2019 8:06 AM EST Procedure(s):MR ABDOMEN W AND WO CONTRAST Date of service: 09/16/2019 10:30 PM History: 44 years, Male, "RUQ pain" Technique: An MRI of the abdomen was performed utilizing multiplanar/multiecho technique. An MRCP was performed. Contrast: Intravenous contrast was administered. Findings: Lung bases: Normal. Liver: The liver demonstrates normal signal intensity and enhancement. There are no arterial phase enhancing lesions demonstrating pseudocapsule with washout suggestive of a hepatocellular carcinoma. Biliary system: There is mild nonsegmental diffuse intrahepatic ductal dilatation. There is mild epithelial thickening of the common bile duct associated with minimal enhancement. There is no periductal or intrahepatic abscess. The distal common bile duct is normal in caliber without findings of obstructive choledocholithiasis. There is small volume abdominal ascites. There is mild periductal edema. Gallbladder: There is mild thickening of the gallbladder wall favored reactive. No intraluminal gallstones or pericholecystic inflammation is evident. Kidneys: There is a stable uncomplicated left renal cyst. The kidneys otherwise demonstrate normal MRI appearance without detection of a focal renal mass or hydronephrosis. Pancreas: The patient is post partial pancreatectomy. The remnant pancreas within the uncinate process and pancreatic head demonstrates normal signal intensity without hypoenhancement or depiction of a pancreatic collection. There is no significant peripancreatic inflammation. Adrenals: The adrenal glands demonstrate normal MRI appearance. Spleen: A small remnant spleen is present within the left upper quadrant circumscribed by a chronic small left subcapsular hematoma. There is marked thickening and redundancy of the gastric rugae associated with enhancement and restricted diffusion favored secondary to gastritis. IMPRESSION Imaging findings are concerning for cholangitis although this is best excluded clinically. No intrahepatic or periductal abscess. No imaging findings of acute pancreatitis. Massive thickening of the of the gastric rugae, possibly secondary to gastritis. Endoscopy could be acquired to exclude other diagnostic etiologies such as malignancy or M?n?trier disease. Correlation with the patient's serum gastric levels could be acquired to exclude Angel-Lindsey syndrome. Chronic small subcapsular splenic hematoma. Signed by Delfino Wen MD on 09/17/2019 8:04 AM GLUCOSE (POCT) (09/16/2019 8:55 PM EST) Glucose POCT 178 (H) 70 - 99 mg/dl POINT OF CARE Result Comment: TESTING Performed at: [facility] POCT Carlito Gomez MD, Laboratory Director Of Ancillary Services [address] [place] [address] Specimen Performing Organization Address [facility] Phone Number POINT OF CARE TESTING GLUCOSE (POCT) (09/16/2019 6:19 PM EST) Glucose POCT 241 (H) 70 - 99 mg/dl POINT OF CARE Result Comment: TESTING Performed at: [facility] POCT Carlito Gomez MD, Laboratory Director Of Ancillary Services [address] [place] [address] Specimen Performing Organization Address [facility] Phone Number POINT OF CARE TESTING GGT (GAMMA GLUTAMYLTRANSFERASE) (09/16/2019 1:59 PM EST) Gamma Gt 1,218 (H) 15 - 73 U/L [facility] Specimen Blood - Blood specimen (specimen) Performing Organization Address [facility] Phone Number [facility] [address] [address] [phone] GLUCOSE (POCT) (09/16/2019 12:48 PM EST) Glucose POCT 125 (H) 70 - 99 mg/dl POINT OF CARE Result Comment: TESTING Performed at: [facility] POCT Carlito Gomez MD, Laboratory Director Of Ancillary Services [address] [place] [address] Specimen Performing Organization Address [facility] Phone Number POINT OF CARE TESTING BILIRUBIN, DIRECT (09/16/2019 7:31 AM EST) Direct Bilirubin 2.1 (H) 0.0 - 0.3 MG/DL [facility] Specimen Blood - Blood specimen (specimen) Performing Organization Address [facility] Phone Number [facility] [address] [facility] [place] [address] COMPREHENSIVE METABOLIC PANEL (09/16/2019 7:31 AM EST) Sodium 143 134 - 145 mmol/L [facility] Potassium 4.3 3.5 - 5.1 mmol/L [facility] Chloride 114 (H) 98 - 107 mmol/L [facility] CO2 17 (L) 22 - 30 mmol/L [facility] Calcium 9.7 8.3 - 10.1 mg/dl [facility] Albumin 3.8 3.5 - 5.0 g/dl [facility] BUN 14 9 - 20 mg/dl [facility] Creatinine 0.6 (L) 0.8 - 1.5 mg/dl [facility] Glucose 232 (H) 70 - 99 mg/dl [facility] Total Protein 6.7 6.3 - 8.2 g/dl [facility] Total Bilirubin 5.5 (H) 0.0 - 1.1 MG/DL [facility] AST 499 (H) 17 - 59 U/L [facility] ALT 463 (H) 21 - 72 U/L [facility] Alkaline 561 (H) 40 - 150 U/L [facility] Phosphatase [facility] eGFR >60 See Interpretation [facility] Comment: Below ml/min/1.73ml GROUP Estimated GFR [...] Study Equation which can be found at: https://www.kidney.org/content/faap-uuicr-embgguit BUN/Creatinine 23 (H) 6 - 22 RATIO [facility] LABORATORY Anion Gap 12 (H) 3 - 11 mmol/L [facility] A/G Ratio 1.3 0.8 - 2.0 ratio [facility] Specimen Blood - Blood specimen (specimen) Performing Organization Address City/State/Zipcode Phone Number [facility] [address] [place] [address] CBC WITH DIFFERENTIAL (09/16/2019 7:31 AM EST) WBC Count 12.23 (H) 4.23 - 9.07 K/uL [facility] RBC Count 4.15 (L) 4.30 - 5.89 M/UL [facility] Hemoglobin 13.5 (L) 13.7 - 17.5 g/dL [facility] Hematocrit 39.0 (L) 40.1 - 51.0 % [facility] MCV 94.0 (H) 79.0 - 92.2 FL [facility] MCH 32.5 (H) 25.7 - 32.2 PG [facility] MCHC 34.6 32.3 - 36.5 g/dL [facility] Platelet Count 265 163 - 337 K/uL [facility] MPV 11.5 9.4 - 12.4 FL [facility] RDW 15.7 (H) 11.6 - 14.4 % [facility] Neutrophil % 74.3 (H) 34.0 - 67.9 % [facility] Lymphocyte % 13.9 (L) 21.8 - 53.1 % [facility] Monocyte % 9.9 5.3 - 12.2 % [facility] Eosinophil % 1.0 0.8 - 7.0 % [facility] Basophil % 0.6 0.2 - 1.2 % [facility] nRBC % 0.0 0.0 - 0.2 % [facility] Neutrophil # 9.09 (H) 1.78 - 5.38 K/UL [facility] Lymphocyte # 1.70 1.32 - 3.57 K/UL [facility] Monocyte # 1.21 (H) 0.30 - 0.82 K/UL [facility] Eosinophil # 0.12 0.04 - 0.54 K/UL [facility] Basophil # 0.07 0.01 - 0.08 K/UL [facility] Immature Gran % 0.3 0.0 - 0.4 % [facility] Immature Gran # 0.04 (H) 0.00 - 0.03 K/uL [facility] NRBC # 0.00 0.00 - 0.12 K/uL [facility] [facility] Spec[facility] Blood - Blood specimen (specimen) Performing Organization Address [facility] Phone Number [facility] [address] [place] [place] [address] [phone] GLYCOHEMOGLOBIN A1C (09/16/2019 7:31 AM EST) Glycohemoglobin A1C 13.7 (H) <=5.6 % [facility] Comment: [facility] Normal*: <=5.6% Pre Diabetes* Risk: 5.7-6.4% Diabetes* Risk: >=6.5% Glycemic Goals for Adult Diabetes*: <7.0% *(Adult Ranges)[employer], Standards of Medical Care in Diabetes, 2018 Specimen Blood - Blood specimen (specimen) Performing Organization Address [facility] Phone Number [facility] [address] [place] [id number] LIPASE (09/16/2019 7:31 AM EST) Lipase 123 23 - 300 U/L [facility] Specimen Blood - Blood specimen (specimen) Performing Organization Address [facility] Phone Number [facility] [address] [place] [place] [address] [phone] LIPID PROFILE (09/16/2019 7:31 AM EST) Cholesterol 277 (H) <200 mg/dl [facility] HDL Cholesterol 41 >40 mg/dl [facility] Triglycerides 276 (H) <150 mg/dl [facility] LDL Cholesterol 181 (H) <100 MG/DL [facility] Cholesterol / HDL Ratio 6.8 RATIO [facility] LDL / HDL Ratio 4.4 [facility] Non-HDL Cholesterol 236 (H) 0 - 130 MG/DL [facility] Patient Fasting: Yes [facility] Specimen Blood - Blood specimen (specimen) Performing Organization Address [facility] Phone Number [facility] [address] [phone] [place] ABDOMEN LIMITED (09/15/2019 12:05 AM EST) Specimen Performing Organization Address [facility] Phone Number [facility] [address] [address] [address] ABDOMEN PELVIS WITH IV CONTRAST (09/15/2019 12:00 AM EST) Specimen Performing Organization Address [facility] Phone Number [facility] [address] [address] [address] ABDOMEN PELVIS WITH IV CONTRAST (09/03/2019 12:00 AM EST) Specimen Performing Organization Address [facility] Phone Number [facility] [address] [place] [phone] documented in this encounter Visit Diagnoses Diagnosis Abnormal MRI Other nonspecific (abnormal) findings on radiological and other examinations of body structure Pain Generalized pain Other acute pancreatitis, unspecified complication status Hypertriglyceridemia Pure hyperglyceridemia Acute on chronic pancreatitis (HCC) Abdominal pain, acute Abdominal pain, unspecified site LFTs abnormal Other abnormal blood chemistry DM (diabetes mellitus), secondary uncontrolled (HCC) Secondary diabetes mellitus without mention of complication, uncontrolled documented in this encounter Administered Medications Medication Order MAR Action Action Date Dose Rate Site ciprofloxacin (CIPRO) tablet 500 Given 09/22/2019 8:09 AM EST 500 mg mg 500 mg, Oral, BID, 16 doses, First dose on Sun09/19/19 at 0900, Last dose on Sun09/26/19 at 2100, Separate doses at least 2 hours before or 6 hours after oral antacids, iron salts, multivitamins., Given 09/21/2019 9:02 PM EST 500 mg Given 09/21/2019 8:20 AM EST 500 mg dextrose 5% and 1/2 normal saline IV New Bag 09/16/2019 6:52 AM EST 125 mL/hr Intravenous, at 125 mL/hr, CONTINUOUS, Starting Sun09/16/19 at 0620, Until Sun09/16/19 at 0848 dextrose injection 50 % Given 09/17/2019 11:27 AM EST 25 g 25 g, Intravenous Push, NOW, 1 dose, 09/17/19 at 1130 gadobutrol (GADOVIST) 1 MMOL/ML IV New Bag 09/16/2019 11:39 PM EST 7.5 mmol solution 7.5 mmol 7.5 mmol (7.5 mL), Intravenous, NOW, 1 dose, Sun09/16/19 at 2350 gemfibrozil (LOPID) tablet 600 mg Given 09/22/2019 8:10 AM EST 600 mg 600 mg, Oral, TID, First dose on Sun09/16/19 at 0900, Until Discontinued Given 09/21/2019 9:04 PM EST 600 mg Given 09/21/2019 4:26 PM EST 600 mg GLARGINE insulin Given 09/20/2019 8:34 AM EST 10 Units Abdominal Tissue (LONG-Acting) injection 10 Units 10 Units, Subcutaneous, NOW, 1 dose, [facility] 09/20/19 at 0830, NOT FOR IV USE, GLARGINE insulin Given 09/20/2019 8:00 AM EST 15 Units Abdominal Tissue (LONG-Acting) injection 15 Units 15 Units, Subcutaneous, QAM, First dose (after last modification) on Sun09/19/19 at 0900, Until Discontinued, NOT FOR IV USE, Given 09/19/2019 8:43 AM EST 15 Units Arm-Right GLARGINE insulin Given 09/20/2019 9:06 PM EST 25 Units Abdominal Tissue (LONG-Acting) injection 25 Units 25 Units, Subcutaneous, QHS, First dose (after last modification) on Sun09/19/19 at 2100, Until Discontinued, NOT FOR IV USE, Given 09/19/2019 8:45 PM EST 25 Units Arm-Right GLARGINE insulin (LONG-Acting) Given 09/18/2019 8:42 PM EST 30 Units Arm -Right injection 30 Units 30 Units, Subcutaneous, QHS, First dose on Sun09/16/19 at 2100, Until Discontinued, NOT FOR IV USE, Given 09/17/2019 9:02 PM EST 30 Units Arm - Upper Right Given 09/16/2019 8:56 PM EST 30 Units Arm - Upper Right GLARGINE insulin Given 09/22/2019 8:11 AM EST 35 Units Abdominal Tissue (LONG-Acting) injection 35 Units 35 Units, Subcutaneous, BID, First dose (after last modification) on Sun09/21/19 at 0820, Until Discontinued, NOT FOR IV USE, Given 09/21/2019 9:02 PM EST 35 Units Arm - Upper Right Given 09/21/2019 8:21 AM EST 35 Units Abdominal Tissue GLARGINE insulin (LONG-Acting) injection 40 Units 40 Units, Subcutaneous, BID, First dose (after last modification) on Sun at 2100, Until Discontinued, NOT FOR IV USE, GLARGINE insulin Given 09/22/2019 9:32 AM EST 5 Units Abdominal Tissue (LONG-Acting) injection 5 Units 5 Units, Subcutaneous, NOW, 1 dose, Sun09/22/19 at 0840, NOT FOR IV USE, heparin injection 5000 Given 09/21/2019 2:19 PM 5,000 Units Abdominal Tissue UNIT/ML EST 5,000 Units, Subcutaneous, Q8H (Heparin), 18 doses, First dose on [facility] 09/18/19 at 1400, Last dose on Sun09/24/19 at 0600 Given 09/21/2019 6:06 AM EST 5,000 Units Abdominal Tissue Given 09/20/2019 2:05 PM EST 5,000 Units Abdominal Tissue HYDROmorphone (DILAUDID) syringe 0.5 mg Given 09/18/2019 11:10 AM EST 0.5 mg 0.5 mg, Intravenous Push, Q2 HRS PRN, Starting Sun09/16/19 at 1045, Until Sun09/18/19 at 1303, breakthrough pain Given 09/18/2019 3:08 AM EST 0.5 mg Given 09/18/2019 12:48 AM EST 0.5 mg HYDROmorphone (DILAUDID) syringe 0.5 mg Given 09/21/2019 9:05 AM EST 0.5 mg 0.5 mg, Intravenous Push, Q6 HRS PRN, Starting Sun09/18/19 at 1310, Until Sun09/21/19 at 1145, Severe Pain (pain scale 7-10)IV 2nd line - if immediate effect required or cannot tolerate PO & no still has severe pain 1 hr after admin of 1st line agent or did not tolerate 1st line agent Given 09/20/2019 11:50 PM EST 0.5 mg Given 09/20/2019 11:31 AM EST 0.5 mg HYDROmorphone (DILAUDID) syringe 0.5 mg Given 09/21/2019 1:29 AM EST 0.5 mg 0.5 mg, Intravenous Push, X1, 1 dose, First dose on Sun09/21/19 at 0120 HYDROmorphone (DILAUDID) syringe 1 mg Given 09/16/2019 9:31 AM EST 1 mg 1 mg, Intravenous Push, Q3 HRS PRN, Starting Sun09/16/19 at 0510, Until Sun09/16/19 at 1046, Severe Pain (pain scale 7-10) - IV - 1st line - if immediate effect required or patient cannot tolerate PO Given 09/16/2019 6:35 AM EST 1 mg HYDROmorphone (DILAUDID) syringe 1 mg Given 09/18/2019 12:58 PM EST 1 mg 1 mg, Intravenous Push, Q4 HRS, 18 doses, First dose on Sun09/16/19 at 1300, Last dose on Sun09/19/19 at 0900 Given 09/18/2019 8:56 AM EST 1 mg Given 09/18/2019 5:17 AM EST 1 mg HYDROmorphone (DILAUDID) tablet 4 mg Given 09/22/2019 8:09 AM EST 4 mg 4 mg, Oral, Q6 HRS, 24 doses, First dose on Sun09/18/19 at 1410, Last dose on Sun09/24/19 at 0810 Given 09/22/2019 2:17 AM EST 4 mg Given 09/21/2019 9:13 PM EST 4 mg lactated ringers IV New Bag 09/16/2019 9:28 AM EST 150 mL/hr Intravenous, at 150 mL/hr, CONTINUOUS, Starting Sun09/16/19 at 0950, Until Sun09/16/19 at 1036 lactated ringers IV Rate Change 09/16/2019 10:40 AM EST 300 mL/hr Intravenous, at 300 mL/hr, CONTINUOUS, Starting Sun09/16/19 at 1040, Until Sun09/16/19 at 1438 lactated ringers IV New Bag 09/18/2019 5:15 AM EST 200 mL/hr Intravenous, at 200 mL/hr, CONTINUOUS, Starting Sun09/16/19 at 1440, Until Sun09/18/19 at 1304 New Bag 09/17/2019 11:22 PM EST 200 mL/hr New Bag 09/16/2019 6:11 PM EST 200 mL/hr lactated ringers IV New Bag 09/19/2019 5:09 AM EST 150 mL/hr Intravenous, at 150 mL/hr, CONTINUOUS, Starting Sun09/18/19 at 1310, Until 09/19/19 at 1029 New Bag 09/18/2019 10:11 PM EST 150 mL/hr Rate Change 09/18/2019 2:35 PM EST 150 mL/hr lactated ringers IV New Bag 09/20/2019 12:07 AM EST 100 mL/hr Intravenous, at 100 mL/hr, CONTINUOUS, Starting 09/19/19 at 1030, Until 09/20/19 at 0955 New Bag 09/19/2019 2:10 PM EST 100 mL/hr Rate Change 09/19/2019 10:30 AM EST 100 mL/hr lactated ringers IV New Bag 09/20/2019 11:53 PM EST 75 mL/hr Intravenous, at 75 mL/hr, CONTINUOUS, Starting 09/20/19 at 1000, Until 09/21/19 at 1145 New Bag 09/20/2019 9:59 AM EST 75 mL/hr LISPRO insulin (RAPID - Given 09/22/2019 9:15 AM EST 8 Units Abdominal Tissue Acting) injection 8 Units 8 Units, Subcutaneous, AC, First dose on [facility] 09/20/19 at 1100, Until Discontinued, NOT FOR IV USE, Given 09/21/2019 4:26 PM EST 8 Units Abdominal Tissue Given 09/21/2019 12:19 PM EST 8 Units Abdominal Tissue LISPRO insulin (RAPID-Acting) Given 09/22/2019 9:15 AM 10 Units Abdominal Tissue USUAL Correction Scale Inj EST Subcutaneous, AC/HS, First dose on [facility] 09/18/19 at 0850, Until Discontinued, Blood Glucose USUAL <=150 0 Units 151-200 2 Units 201-250 4 Units 251-300 6 Units 301-350 8 Units 351-400 10 Units >400 12 Units And Call Grey Tender Not for IV USE, Given 09/21/2019 9:13 PM EST 8 Units Arm - Upper Right Given 09/21/2019 4:27 PM EST 4 Units Abdominal Tissue normal saline bolus 500 mL New Bag 09/16/2019 5:38 AM EST 500 mL 500 mL, Intravenous, BOLUS, 1 dose, 09/16/19 at 0620 ondansetron (ZOFRAN ODT) soluble tablet 8 mg Given 09/22/2019 8:09 AM EST 8 mg 8 mg, Oral, AC, First dose on 09/20/19 at 1100, Until Discontinued Given 09/21/2019 4:26 PM EST 8 mg Given 09/21/2019 12:19 PM EST 8 mg ondansetron (ZOFRAN) injection 4 mg Given 09/20/2019 9:19 AM EST 4 mg 4 mg, Intravenous Push, Q4 HRS PRN, Starting Tu09/16/19 at 0511, Until 09/20/19 at 0955, Nausea/Vomiting - IV - 1st line - If immediate effect required or patient cannot tolerate PO Given 09/18/2019 1:15 AM EST 4 mg Given 09/17/2019 12:27 PM EST 4 mg OXYcodone (OXY-IR,OXY-FAST) immediate release Given 09/21/2019 6:06 AM EST 10 mg tablet 10 mg 10 mg, Oral, Q4 HRS PRN, Starting Sun09/17/19 at 1028, Until 09/21/19 at 1145, Moderate Pain (pain scale 4-6)PO 2nd line - if immediate effect not required & can tolerate PO and still has moderate pain 4 hrs after admin of 1st line agent or did not tolerate 1st line agent, Severe Pain (pain scale 7-10)PO 2nd line - if immediate effect not required & can tolerate PO & still has severe pain 2 hrs after admin of 1st line agent or did not tolerate 1st line agent Given 09/20/2019 9:05 PM EST 10 mg Given 09/20/2019 9:22 AM EST 10 mg OXYcodone (OXY-IR,OXY-FAST) immediate release Given 09/21/2019 1:46 PM EST 10 mg tablet 10 mg 10 mg, Oral, Q4 HRS PRN, Starting 09/21/19 at 1144, Until 09/22/19 at 1538, Moderate Pain (pain scale 4-6)PO 2nd line - if immediate effect not required & can tolerate PO and still has moderate pain 4 hrs after admin of 1st line agent or did not tolerate 1st line agent, Severe Pain (pain scale 7-10)PO 2nd line - if immediate effect not required & can tolerate PO & still has severe pain 2 hrs after admin of 1st line agent or did not tolerate 1st line agent pantoprazole (PROTONIX) injection 40 mg Given 09/22/2019 5:32 AM EST 40 mg 40 mg, Intravenous Push, Q24 HRS, First dose on Sun09/16/19 at 0620, Until Discontinued, DO NOT USE BACTERIOSTATIC SALINE FROM STOREROOM!!!! INSTRUCTIONS: Reconstitute the Protonix vial with 10 mL Sodium Chloride prefilled syringe for an approximate final concentration of 4 mg/ml. Mix prior to administration. There is a 2 hour stability once mixed. Administer over a period of 2 minutes. Administer thru a dedicated line or a Y site. Please flush before and after administration. , Given 09/21/2019 6:06 AM EST 40 mg Given 09/20/2019 5:38 AM EST 40 mg piperacillin-TAZOBACTAM (ZOSYN) (4 Hour) IV New Bag 09/19/2019 2:21 AM EST 4.5 g mixture 4.5 g 4.5 g, Intravenous, Q6 HRS, 12 doses, First dose on Sun09/17/19 at 1450, Last dose on 09/20/19 at 0850 New Bag 09/18/2019 8:40 PM EST 4.5 g New Bag 09/18/2019 2:35 PM EST 4.5 g piperacillin-TAZOBACTAM (ZOSYN) IV premix New Bag 09/17/2019 9:06 AM EST 4.5 g 4.5 g 4.5 g, Intravenous, NOW, 1 dose, Sun09/17/19 at 0850 prochlorperazine (COMPAZINE) injection 5 mg Given 09/21/2019 10:36 AM EST 5 mg 5 mg, Intravenous Push, Q6 HRS PRN, Starting 09/20/19 at 0955, Until 09/22/19 at 1538, Nausea/Vomiting - IV - 1st line - If immediate effect required or patient cannot tolerate PO REGULAR insulin (SHORT-Acting) Given 09/18/2019 5:51 AM 10 Units Arm - Upper Left USUAL Correction Scale Inj EST Subcutaneous, Q6H (INSULIN), First dose on Sun09/16/19 at 1430, Until Discontinued, Blood Glucose USUAL <=150 0 Units 151-200 2 Units 201-250 4 Units 251-300 6 Units 301-350 8 Units 351-400 10 Units >400 12 Units And Call Grey Tender , Given 09/16/2019 6:22 PM EST 4 Units Arm - Upper Left documented in this encounter Insurance Payer Benefit Plan / Subscriber ID Effective Dates Phone Address Type Group MEDICAID MEDICAID [id number] [place] all dates Guarantor Name Account Type Relation to Date of Phone Billing Patient Address Ryder Chinchilla Personal/Family 1975 [address] (Home) [phone] [place], [place] ([place]) [id number] documented as of this encounter Advance Directives Code Status Date Activated Date Inactivated Comments Full Code 09/16/2019 5:17 AM Does the patient have decision making capacity? Yes Order was discussed with: Patient I discussed all options and patient/surrogate requested and agreed to: Full Code Full Code 06/21/2019 4:16 AM 09/16/2019 4:15 AM Does the patient have decision making [...]
[2019-09-30] MEDS ORDERED: NS 0.9% 1000 ML** 1,000 ML IV ONE ×2 (13:04→13:10)
[2019-09-30] MEDS ORDERED: Morphine 4 MG/ML VIAL (1 ml) 4 MG/ML VIAL IV ONE ×2 (13:10→14:24)
--- NOTE | 2019-09-30 13:11 | ED ---
Abdominal Pain/Male - HPI Summary HPI Summary: The patient is a 44 y/o M presenting to [facility] with a chief complaint of persistent abd pain for weeks. He has hx of chronic pancreatitis, functional asplenia, pancreas pseudocyst, and diabetes, and was here on 08/16/2019 for abd pain and hyperglycemia with admission and d/c. He returned on 09/15/2019 and had an Abd/Pel CT with report positive for thickened CBD, resulting in transfer to [facility] for obstructive jaundice and ERCP. While at [facility], he had biopsies of his liver and gallbladder, gallbladder sludge drainage without gallstones, and he was d/c to home following a week of admission with abx ( likely Ciprofloxacin but patient unable to remember name). Since returning home and finishing abx, he has continued to experience abd pain worse across the upper abd but radiating into the flanks. He notes possible intermittent fevers measuring up to 101.8F as well as afebrile readings. He states BG has been primarily WNL and well-managed at home. Aching pain currently rated 8/10 in severity. PMHx: diabetes, HLD, GERD. Former smoker, history of EtOH abuse until 2012 without current use, marijuana use. Medications reviewed. Allergies noted. Home Medications Medication Instructions Recorded Confirmed Type Gemfibrozil TAB* [Lopid TAB*] 600 mg PO BID 12/23/17 09/30/19 History Gabapentin CAP(*) [Neurontin 300 300 mg PO TID 08/13/19 09/30/19 History CAP(*)] Cholecalciferol CAP/TAB(NF) 5,000 unit PO WEEKLY 09/30/19 09/30/19 History [Vitamin D3 CAP/TAB (NF)] Insulin Glargine,Hum.rec.anlog 25 units SUBCUT QPM 09/30/19 09/30/19 History [Lantus Solostar 100 units/ml 3 ml x 5 PENS] Insulin Glargine,Hum.rec.anlog 60 units SUBCUT QAM 09/30/19 09/30/19 History [Lantus Solostar 100 units/ml 3 ml x 5 PENS] Insulin Lispro [Admelog 100 10 units SUBCUT TID 09/30/19 09/30/19 History units/ml 10 ml VIAL] Lipase/Protease/Amylase [Creon 1 cap PO TID 09/30/19 09/30/19 History 6000 Unit] Nicotine Inhaler* (NF) [Nicotine 10 mg INH Q2H PRN 09/30/19 09/30/19 History Inhaler*] Oyster Calcium 500mg 500 mg PO DAILY 09/30/19 09/30/19 History Sucralfate TAB* [Carafate*] 1 gm PO TID 09/30/19 09/30/19 History Ursodiol CAP* [Actigall CAP 300 300 mg PO TID 09/30/19 09/30/19 History MG*] - History of Current Complaint Chief Complaint: EDAbdPain Stated Complaint: ABD PAIN/SKIN DISCOLORATION PER PT Time Seen by Provider: 09/30/19 12:58 Hx Obtained From: Patient Onset/Duration: Lasting Weeks, Still Present Timing: Constant Severity Initially: Moderate Severity Currently: Moderate Pain Intensity: 8 Pain Scale Used: 0-10 Numeric Location: Other - across upper abd Radiates: Yes Radiates to: Flank - b/l Character: Other: - aching Aggravating Factor(s): Nothing Alleviating Factor(s): Nothing Associated Signs And Symptoms: Positive: Fever - possible, measured febrile and afebrile temps at home Similar Episode/Dx As:: chronic pancreatitis, functional asplenia, pancreas pseudocyst, diabetes - Allergies/Home Medications Allergies/Adverse Reactions: Allergies Allergy/AdvReac Type Severity Reaction Status Date / Time No Known Allergies Allergy Verified 09/15/19 15:53 Home Medications: Home Medications Gemfibrozil TAB* [Lopid TAB*] 600 mg PO BID 12/23/17 [History Confirmed ] Gabapentin CAP(*) [Neurontin 300 CAP(*)] 300 mg PO TID 08/13/19 [History Confirmed 09/30/19] Cholecalciferol CAP/TAB(NF) [Vitamin D3 CAP/TAB (NF)] 5,000 unit PO WEEKLY 09/30 [History Confirmed 09/30/19] Insulin Glargine,Hum.rec.anlog [Lantus Solostar 100 units/ml 3 ml x 5 PENS] 25 units SUBCUT QPM 09/30/19 [History Confirmed 09/30/19] Insulin Glargine,Hum.rec.anlog [Lantus Solostar 100 units/ml 3 ml x 5 PENS] 60 units SUBCUT QAM 09/30/19 [History Confirmed 09/30/19] Insulin Lispro [Admelog 100 units/ml 10 ml VIAL] 10 units SUBCUT TID 09/30/19 [ History Confirmed 09/30/19] Lipase/Protease/Amylase [Creon 6000 Unit] 1 cap PO TID 09/30/19 [History Confirmed 09/30/19] Nicotine Inhaler* (NF) [Nicotine Inhaler*] 10 mg INH Q2H PRN 09/30/19 [History Confirmed 09/30/19] Oyster Calcium 500mg 500 mg PO DAILY 09/30/19 [History Confirmed 09/30/19] Sucralfate TAB* [Carafate*] 1 gm PO TID 09/30/19 [History Confirmed 09/30/19] Ursodiol CAP* [Actigall CAP 300 MG*] 300 mg PO TID 09/30/19 [History Confirmed 09/30/19] PMH/Surg Hx/FS Hx/Imm Hx Endocrine/Hematology History: Reports: Hx Diabetes, Other Endocrine/ Hematological Disorders - pancreatitis, h/o necrotysing Denies: Hx Thyroid Disease Cardiovascular History: Reports: Hx Hypercholesterolemia Denies: Hx Congestive Heart Failure, Hx Hypertension Respiratory History: Denies: Hx Asthma, Hx Chronic Obstructive Pulmonary Disease (COPD) GI History: Reports: Hx Gastroesophageal Reflux Disease, Other GI Disorders - Pancreatitis - chronic, splenic necrosis Denies: Hx Ulcer History: Denies: Hx Dialysis, Hx Renal Disease Sensory History: Denies: Hx Cataracts, Hx Contacts or Glasses, Hx Eye Injury, Hx Eye Prosthesis, Hx Glaucoma, Hx Legally Blind, Hx Macular Degeneration, Hx Vision Problem, Hx Deafness, Hx Hearing Aid, Hx Hearing Problem, Other Sensory Impairments Opthamlomology History: Denies: Hx Cataracts, Hx Contacts or Glasses, Hx Eye Injury, Hx Eye Prosthesis, Hx Glaucoma, Hx Legally Blind, Hx Macular Degeneration, Hx Vision Problem, Other Sensory Impairments Neurological History: Denies: Hx Dementia, Hx Developmental Delay, Hx Headaches, Hx Migraine, Hx Nerve Disease, Hx Seizures, Hx Spinal Cord Injury, Hx Transient Ischemic Attacks (TIA), Other Neuro Impairments/Disorders Psychiatric History: Reports: Hx Depression, Hx Substance Abuse - ETOH - Surgical History Surgery Procedure, Year, and Place: piece of pancreas removed Hx Anesthesia Reactions: No - Immunization History Date of Tetanus Vaccine: utd Date of Influenza Vaccine: fall 2016 Infectious Disease History: No Infectious Disease History: Reports: Hx Clostridium Difficile Denies: Hx Hepatitis, Hx Human Immunodeficiency Virus (HIV), Hx of Known/ Suspected MRSA, Hx Shingles, Hx Tuberculosis, Traveled Outside the [place] in Last 30 Days - Family History Known Family History: Positive: Other - brother high triglycerides (>1,000) - Social History Alcohol Use: None Alcohol Amount: quit in 2002 Hx Substance Use: Yes Substance Use Type: Reports: Marijuana Substance Use Comment - Amount & Last Used: Marijuana used occasionally to increase appetite and treat pain Hx Tobacco Use: Yes Smoking Status (MU): Former Smoker Type: Cigarettes Amount Used/How Often: 1/2 ppd Have You Smoked in the Last Year: Yes Review of Systems Positive: Fever Positive: Abdominal Pain - diffuse in upper abdomen radiating into flanks All Other Systems Reviewed And Are Negative: Yes Physical Exam - Summary Physical Exam Summary: Constitutional: Chronically ill-appearing, Well-developed, Thin, Alert. (-) Distressed Skin: Warm, Dry HENT: Normocephalic; Atraumatic Eyes: Conjunctiva normal Neck: Musculoskeletal ROM normal neck. (-) JVD, (-) Stridor, (-) Nuchal rigidity Cardio: Rhythm regular, rate normal, Heart sounds normal; Intact distal pulses; Radial pulses are 2+ and symmetric. (-) Murmur Pulmonary/Chest wall: Effort normal. (-) Respiratory distress, (-) Wheezes, (-) Rales Abd: Soft, (+) Right greater than left tenderness, (-) Distension, (+) Voluntary guarding, (-) Rebound Musculoskeletal: (-) Edema Lymph: (-) Cervical adenopathy Neuro: Alert, Oriented x3 Psych: Mood and affect Normal Triage Information Reviewed: Yes Vital Signs On Initial Exam: Initial Vitals Temp Pulse Resp BP Pulse Ox 98.9 F 87 18 142/102 98 09/30/19 12:44 09/30/19 12:44 09/30/19 12:44 09/30/19 12:44 09/30/19 12:44 Vital Signs Reviewed: Yes Procedures - Sedation Patient Received Moderate/Deep Sedation with Procedure: No Diagnostics - Vital Signs Vital Signs Temp Pulse Resp BP Pulse Ox 09/30/19 12:44 98.9 F 87 18 142/102 98 - Laboratory Result Diagrams: 09/30/19 13:13 09/30/19 13:13 Lab Statement: Any lab studies that have been ordered have been reviewed, and results considered in the medical decision making process. - Ultrasound Abd US Ultrasound Interpretation Completed By: Radiologist Summary of Ultrasound Findings: Impression: Dilated intrahepatic ducts especially in the left lobe with dilated common bile duct measuring up to 1.1 cm. Findings are similar to that identified on September 15, 2019. Patient has had prior pancreatectomy. Correlation with clinical history is suggested. ED physician has reviewed this report. Re-Evaluation - Re-Evaluation First Eval Re-Evaluation Time: 15:15 Comment: D/w patient transfer, which he does not want. He would like to leave Second Eval Re-Evaluation Time: 15:50 Comment: Patient would like to leave AMA, is AAOx4 with clear sensorium, no signs of intoxication, no SI/HI, a normal gait and normal speech pattern and capacity to refuse care. I explained to the patient the risks of leaving AMA to include , disability, and loss of function. I had an extensive conversation with the patient regarding return precautions and encouraged them to return sooner for any worsening condition, new symptoms or ANY other concerns. Abdominal Pain Male Course/Dx - Course Course Of Treatment: 44 y/o male w a updated medical history including necrotizing pancreatitis, pancreatic pseudocyst, recent elevated LFTs and concern for biliary obstruction s/p admission at [facility] who is presenting with abdominal pain. - vital signs stable, patient in mild distress secondary to pain. Abdomen with right-sided abdominal tenderness, voluntary guarding. Labs notable for significantly elevated blood sugar in the 800s, patient was given 2 L of fluid and 10 subcutaneous insulin. Patient denies blood sugar elevations at home. pH 7.4, normal GAP, do not suspect dka. Patient declining further glucose checks. LFTs downtrending from prior but still elevated, alkaline phosphatase downtrending but also elevated. D/w with on -call GI who recommends transfer back to and complex history of his pancreas , patient declines transfer would like to leave AMA. Discussed with patient my concerns given his high blood sugar, and recent admission with concern for possible infection. Patient left AMA - Diagnoses Provider Diagnoses: Hyperglycemia, Abdominal pain, Common bile duct dilatation, Left against medical advice - Provider Notifications Discussed Care Of Patient With: Earl Ag - GI Time Discussed With Above Provider: 15:10 Instructed by Provider To: Transfer - I discussed the patient's case with Dr. Ag, and he recommends transfer to [place] for higher level of care. Reason For Transfer: Patient not appropriate for [facility] Specialist unable to manage this patient. Discharge ED - Sign-Out/Discharge Documenting (check all that apply): Patient Departure - Patient leaving AMA. - Discharge Plan Condition: Stable Disposition: HOME Patient Education Materials: Diabetic Hyperglycemia (ED) Referrals: Azael Olvera MD [Primary Care Provider] - 3 Days Additional Instructions: You were seen in the emergency department for high blood sugar and abdominal pain. Your blood sugar was 900, 80 fluids and insulin. You want to leave AGAINST MEDICAL ADVICE, we recommend that he stay. If you want to return, we' ll be happy to see you back in the ER Please follow up with your primary care doctor in next 2-3 days and return to emergency department for worsening pain, fevers, or concerning symptoms. It was a pleasure taking care of you today. - Billing Disposition and Condition Condition: STABLE Disposition: Home - Attestation Statements Document Initiated by Andra: Yes Documenting Scribe: Rebeka Jalloh Provider For Whom Andra is Documenting (Include Credential): Dr. Ekta Calderon MD Scribe Attestation: Rebeka Garcia, scribed for Dr. Ekta Calderon MD on 09/30/19 at 1652. Scribe Documentation Reviewed: Yes Provider Attestation: The documentation as recorded by the Rebeka miller accurately reflects the service I personally performed and the decisions made by me, Dr. Ekta Calderon MD Status of Scribe Document: Viewed
[2019-09-30 13:29] LABS: ABS Basophils 0.1 10^3/ul (0-0.2); ABS Lymphocytes 0.8 10^3/ul (1.0-4.8); ABS Monocytes 0.4 10^3/ul (0-0.8); ABS Neutrophils 5.9 10^3/ul (1.5-7.7); Eosinophil % 0.6 %; Hematocrit 39 % (42-52); Hemoglobin 13.4 g/dL (14.0-18.0); Lymphocyte % 10.5 %; Mean Corpuscular HGB Conc 35 g/dL (31-36); Mean Corpuscular Hemoglobin 35 pg (27-31); Mean Corpuscular Volume 101 fL (80-94); Mean Platelet Volume 8.8 fL (7.4-10.4); Nucleated Red Blood Cells % 0.1; Platelet Count 380 10^3/uL (150-450); Red Blood Count 3.85 10^6 /uL (4.18-5.48); Red Cell Distribution Width 15 % (10-15); White Blood Count 7.2 10^3/uL (3.5-10.8)
[2019-09-30 13:47] LABS: Albumin 4.1 g/dL (3.2-5.2); Albumin/Globulin Ratio 1.4 (1-3); BUN/Creatinine Ratio 14.8 (8-20); C Reactive Protein 4.44 mg/L (<8.01); Calcium 9.2 mg/dL (8.6-10.3); EGFR African American 125.8 (>60); Total Bilirubin 1.2 mg/dL (0.2-1.0); Total Protein 7.1 g/dL (6.4-8.9)
[2019-09-30 14:38] LABS: Potassium 4.6 mmol/L (3.5-5.0)
[2019-09-30] MEDS ORDERED: Insulin REGULAR(*) 1 UNITS UNIT SUBCUT ONE (14:42)
== END 2019-09-30 16:29 | disposition home or self-care (01) ==
LOC: ED 12:41
DX: E11.65 Type 2 diabetes mellitus with hyperglycemia (principal); K83.9 Disease of biliary tract, unspecified; R10.9 Unspecified abdominal pain; K86.1 Other chronic pancreatitis; E78.00 Pure hypercholesterolemia, unspecified; K21.9 Gastro-esophageal reflux disease without esophagitis; F32.9 Major depressive disorder, single episode, unspecified; Z87.891 Personal history of nicotine dependence; Z79.4 Long term (current) use of insulin
CPT/HCPCS: 36415; 76705; 80053; 82803; 83690; 84478; 85025; 86140; 96361; 96374; 96375; 99283; J2270

== ENCOUNTER 2019-10-19 09:38 | Emergency (ER) | payer OTHER ==
[2019-10-19] MEDS ORDERED: NS 0.9% 1000 ML** 1,000 ML IV ONE ×2 (09:46→10:44)
[2019-10-19] MEDS ORDERED: Morphine 4 MG/ML VIAL (1 ml) 4 MG/ML VIAL IV ONE (09:46)
[2019-10-19] MEDS ORDERED: Ondansetron INJ* 2 MG/ML VIAL IV ONE (09:46)
--- NOTE | 2019-10-19 09:52 | ED ---
Abdominal Pain/Male - HPI Summary HPI Summary: 44-year-old male with a significant past medical history of chronic pancreatitis presents to the emergency department today complaining of 9 out of 10 in upper abdominal pain which she describes as burning. Patient states this pain began at approximately 0500 this date. Patient has not taken any medication prior to arrival for alleviation of his pain. Patient has associated nausea and vomiting however he denies fevers, recent travel, cough, chest pain, shortness of breath, diarrhea. Patient denies alcohol use or recreational drug use. Patient states this feels like a pancreatitis flare. - History of Current Complaint Stated Complaint: ABD PAIN PER EMS Time Seen by Provider: 10/19/19 09:39 Hx Obtained From: Patient Onset/Duration: Gradual Onset Timing: Constant Severity Initially: Severe Severity Currently: Severe Pain Scale Used: 0-10 Numeric Radiates: No - Allergies/Home Medications Allergies/Adverse Reactions: Allergies Allergy/AdvReac Type Severity Reaction Status Date / Time No Known Allergies Allergy Verified 10/19/19 09:54 Home Medications: Home Medications Gemfibrozil TAB* [Lopid TAB*] 600 mg PO BID 12/23/17 [History Confirmed ] Gabapentin CAP(*) [Neurontin 300 CAP(*)] 300 mg PO TID 08/13/19 [History Confirmed 10/19/19] Cholecalciferol CAP/TAB(NF) [Vitamin D3 CAP/TAB (NF)] 5,000 unit PO WEEKLY 09/30 [History Confirmed 10/19/19] Insulin Glargine,Hum.rec.anlog [Lantus Solostar 100 units/ml 3 ml x 5 PENS] 25 units SUBCUT QAM 09/30/19 [History Confirmed 10/19/19] Insulin Glargine,Hum.rec.anlog [Lantus Solostar 100 units/ml 3 ml x 5 PENS] 35 units SUBCUT QPM 09/30/19 [History Confirmed 10/19/19] Insulin Lispro [Admelog 100 units/ml 10 ml VIAL] 10 units SUBCUT TID 09/30/19 [ History Confirmed 10/19/19] Lipase/Protease/Amylase [Creon 6000 Unit] 1 cap PO TID 09/30/19 [History Confirmed 10/19/19] Ursodiol CAP* [Actigall CAP 300 MG*] 300 mg PO TID 09/30/19 [History Confirmed 10/19/19] oxyCODONE/Acetamin 5/325 MG* [Percocet 5/325 TAB*] 1 tab PO Q6H PRN #12 tab MDD 4 10/19/19 [Rx] PMH/Surg Hx/FS Hx/Imm Hx Endocrine/Hematology History: Reports: Hx Diabetes, Other Endocrine/ Hematological Disorders - pancreatitis, h/o necrotysing Denies: Hx Thyroid Disease Cardiovascular History: Reports: Hx Hypercholesterolemia Denies: Hx Congestive Heart Failure, Hx Hypertension Respiratory History: Denies: Hx Asthma, Hx Chronic Obstructive Pulmonary Disease (COPD) GI History: Reports: Hx Gastroesophageal Reflux Disease, Other GI Disorders - Pancreatitis - chronic, splenic necrosis Denies: Hx Ulcer History: Denies: Hx Dialysis, Hx Renal Disease Sensory History: Denies: Hx Cataracts, Hx Contacts or Glasses, Hx Eye Injury, Hx Eye Prosthesis, Hx Glaucoma, Hx Legally Blind, Hx Macular Degeneration, Hx Vision Problem, Hx Deafness, Hx Hearing Aid, Hx Hearing Problem, Other Sensory Impairments Opthamlomology History: Denies: Hx Cataracts, Hx Contacts or Glasses, Hx Eye Injury, Hx Eye Prosthesis, Hx Glaucoma, Hx Legally Blind, Hx Macular Degeneration, Hx Vision Problem, Other Sensory Impairments Neurological History: Denies: Hx Dementia, Hx Developmental Delay, Hx Headaches, Hx Migraine, Hx Nerve Disease, Hx Seizures, Hx Spinal Cord Injury, Hx Transient Ischemic Attacks (TIA), Other Neuro Impairments/Disorders Psychiatric History: Reports: Hx Depression, Hx Substance Abuse - ETOH - Surgical History Surgery Procedure, Year, and Place: piece of pancreas removed Hx Anesthesia Reactions: No - Immunization History Date of Tetanus Vaccine: utd Date of Influenza Vaccine: fall 2016 Infectious Disease History: Reports: Hx Clostridium Difficile Denies: Hx Hepatitis, Hx Human Immunodeficiency Virus (HIV), Hx of Known/ Suspected MRSA, Hx Shingles, Hx Tuberculosis - Family History Known Family History: Positive: Other - brother high triglycerides (>1,000) - Social History Alcohol Use: None Alcohol Amount: quit in 2002 Hx Substance Use: Yes Substance Use Type: Reports: Marijuana Substance Use Comment - Amount & Last Used: Marijuana used occasionally to increase appetite and treat pain Hx Tobacco Use: Yes Smoking Status (MU): Former Smoker Type: Cigarettes Amount Used/How Often: 1/2 ppd Have You Smoked in the Last Year: Yes Review of Systems Constitutional: Negative Eyes: Negative ENT: Negative Cardiovascular: Negative Respiratory: Negative Positive: Abdominal Pain, Nausea Genitourinary: Negative Musculoskeletal: Negative Skin: Negative Neurological/Mental Status: Negative Psychological: Normal All Other Systems Reviewed And Are Negative: Yes Physical Exam - Summary Physical Exam Summary: Patient is in pain distress. Inspection of the abdomen reveals no ecchymosis or masses. Palpation reveals tenderness in the upper abdomen diffusely. There is no guarding or rigidity. Triage Information Reviewed: Yes Vital Signs Reviewed: Yes Appearance: Positive: Well-Appearing, No Pain Distress, Well-Nourished Skin: Positive: Warm, Skin Color Reflects Adequate Perfusion Eyes: Positive: EOMI, ZAINAB ENT: Positive: Hearing grossly normal Respiratory/Lung Sounds: Positive: Clear to Auscultation, Breath Sounds Present Cardiovascular: Positive: RRR, S1, S2 Abdomen Description: Positive: Soft. Negative: CVA Tenderness (R), CVA Tenderness (L), Distended, Guarding Bowel Sounds: Positive: Present Musculoskeletal: Positive: Strength/ROM Intact Neurological: Positive: Sensory/Motor Intact, Alert, Oriented to Person Place, Time, Normal Gait, Facial Symmetry, Speech Normal Psychiatric: Positive: Normal, Affect/Mood Appropriate AVPU Assessment: Alert Procedures - Sedation Patient Received Moderate/Deep Sedation with Procedure: No Diagnostics - Laboratory Result Diagrams: 10/19/19 09:46 10/19/19 09:46 Lab Statement: Any lab studies that have been ordered have been reviewed, and results considered in the medical decision making process. Abdominal Pain Male Course/Dx - Course Course Of Treatment: Patient evaluated in the emergency department today for abdominal pain. Vitals noted and stable. Patient afebrile. Laboratory studies returned showing no leukocytosis with white blood cell count of 8.5. No left shift noted. There is hyperglycemia with a blood glucose of 371. There is minor transaminitis with AST 122, ALT 178. These are consistent with the patients baseline. No elevation in lipase however patient does have a history of chronic pancreatitis. Total bilirubin is elevated at 1.6 and alkaline phosphatase elevated at 900. There are no other significant electrolyte abnormalities or evidence of anemia. Patient was given IV Zofran and morphine for pain. Abdominal ultrasound shows: 1. THERE IS INTRAHEPATIC BILIARY DUCT DILATATION AND THE COMMON BILE DUCT IS MILDLY DILATED MEASURING 8 MM BUT THERE ARE NO ACUTE INFLAMMATORY CHANGES OF THE GALLBLADDER OR IDENTIFICATION OF GALLSTONES. SUPERIOR IMAGING CHARACTERIZATION IF IT WILL INFLUENCE CLINICAL MANAGEMENT CAN BE OBTAINED WITH MRCP TO EVALUATE FOR CONGENITAL BILIARY ABNORMALITIES, DISTAL OBSTRUCTING STONES OR OBSTRUCTING MASSES. 2. HOMOGENOUSLY INCREASED ECHOGENICITY OF THE LIVER PARENCHYMA COULD BE SEEN IN THE SETTING OF HEPATIC STEATOSIS OR OTHER CHRONIC INFILTRATIVE DISEASE OF THE LIVER. Correctional Supervisor Lieutenant, Dr. Bernstein consulted and 1248 who believed the patient was not critical and did not require hospitalization at this time. Hospitalist, Dr. Palomo was consulted at 1308 who believed the patient would do best with outpatient follow-up as as well as questionable drug-seeking behavior. Patient was given a short supply of narcotics and told to follow up with his primary care provider for further evaluation and management. Patient discharged to outpatient follow-up. - Diagnoses Differential Diagnosis/HQI/PQRI: Gall Bladder Disease, Urinary Tract Infection Provider Diagnoses: Abdominal pain Discharge ED - Sign-Out/Discharge Documenting (check all that apply): Patient Departure - Discharge Plan Condition: Stable Disposition: HOME Prescriptions: oxyCODONE/Acetamin 5/325 MG* [Percocet 5/325 TAB*] 1 tab PO Q6H PRN #12 tab MDD 4 PRN Reason: Pain - Severe Patient Education Materials: Pancreatitis (ED) Referrals: Azael Olvera MD [Primary Care Provider] - 3 Days Additional Instructions: Please use ibuprofen 600 mg every 6 hours as needed for pain. I have given you a short supply of Percocet which may be taken for pain not able to be controlled by ibuprofen. Please follow up with Azael Olvera at [facility] for further evaluation and management. Please return to this emergency Department immediately if you develop any new or worsening symptoms. - Billing Disposition and Condition Condition: STABLE Disposition: Home - Attestation Statements Provider Attestation: I was available for consultation for this patient. I did not evaluate the patient or participate in any medical decision making or disposition decisions unless I am specifically named in the chart as having consulted on the patient. If I have consulted on the patient, please see my own ED note on the patient encounter. Ekta Calderon MD
[2019-10-19 10:15] LABS: ABS Basophils 0.1 10^3/ul (0-0.2); ABS Lymphocytes 1.1 10^3/ul (1.0-4.8); ABS Monocytes 0.4 10^3/ul (0-0.8); ABS Neutrophils 6.9 10^3/ul (1.5-7.7); Eosinophil % 0.4 %; Hematocrit 50 % (42-52); Hemoglobin 17.4 g/dL (14.0-18.0); Lymphocyte % 13.4 %; Mean Corpuscular HGB Conc 35 g/dL (31-36); Mean Corpuscular Hemoglobin 35 pg (27-31); Mean Corpuscular Volume 98 fL (80-94); Mean Platelet Volume 8.8 fL (7.4-10.4); Platelet Count 329 10^3/uL (150-450); Red Blood Count 5.03 10^6 /uL (4.18-5.48); Red Cell Distribution Width 14 % (10-15); White Blood Count 8.5 10^3/uL (3.5-10.8)
[2019-10-19 10:32] LABS: Albumin 4.4 g/dL (3.2-5.2); Albumin/Globulin Ratio 1.2 (1-3); BUN/Creatinine Ratio 20.8 (8-20); C Reactive Protein 4.53 mg/L (<8.01); Calcium 9.7 mg/dL (8.6-10.3); EGFR African American 144.2 (>60); EGFR Non-African American 119.1 (>60); Globulin 3.7 g/dL (2-4); Potassium 4.1 mmol/L (3.5-5.0); Total Bilirubin 1.6 mg/dL (0.2-1.0); Total Protein 8.1 g/dL (6.4-8.9)
[2019-10-19] MEDS ORDERED: Insulin REGULAR(*) 1 UNITS UNIT SUBCUT ONE (10:39)
[2019-10-19] MEDS ORDERED: oxyCODONE/Acetamin 5/325 MG* TAB PO ONE (12:24)
[2019-10-19 14:38] VITALS: BP 126/88
--- NOTE | 2019-10-19 17:37 | CONS ---
HOSPITAL MEDICINE CONSULTATION REPORT: DATE OF CONSULT: 10/19/19 PRIMARY CARE PHYSICIAN: Dr. Azael Olvera. ATTENDING PHYSICIAN: Dr. Klever Palomo (dictation provided by Sindy Dunne NP). REASON FOR CONSULT: Question regarding need for admission. HISTORY OF PRESENT ILLNESS: Mr. Chinchilla is a 44-year-old male with a past medical history of chronic pancreatitis and multiple presentations to our emergency department and recent admission on 08/13/19. He returns today saying that he is having severe abdominal pain, difficulty tolerating oral intake. He has labs today, which show that they are actually improved from his previous and he has no leukocytosis. His bilirubin, AST, and ALT are all improved. His CRP is 4.53. His lipase is normal. He has a gallbladder ultrasound, which shows mild intrahepatic duct dilatation only. He has had 3 abdomen and pelvis CTs here, 2 in August and 1 in September, which all show same mild intrahepatic ductal dilatation and no other changes. He was admitted to our hospital and discharged on 08/13/19 with transfer to [facility]. He states he was there for several days for pain control, but ultimately discharged to home without any other change to his medication regimen. He states that he has not followed up routinely with his primary care physician or his technical services specialist. He has made multiple attempts to try to obtain a pain care physician, but has had difficulty doing so due to his history of substance abuse. He has been seen here at our hospital in consultation by our pain physician in 2018 and in 2019. Most recently, Dr. Crenshaw recommended Suboxone or methadone, but the patient did not want to trial either of these medications. PAST MEDICAL HISTORY: 1. Insulin-dependent diabetes. 2. Hypertriglyceridemia. 3. Chronic pancreatitis. 4. History of substance abuse. MEDICATIONS: 1. Lispro t.i.d. 2. Lantus 25 units q.a.m. and 35 units q.p.m. 3. Gemfibrozil 600 mg p.o. b.i.d. 4. Gabapentin 300 mg p.o. t.i.d. 5. Cholecalciferol 5000 units p.o. weekly. 6. Ursodiol 300 mg p.o. t.i.d. 7. Creon 1 cap p.o. t.i.d. ALLERGIES: No known drug allergies. FAMILY HISTORY: Reviewed and noncontributory. SOCIAL HISTORY: The patient is a former drinker in his 20s, but states he quit when he developed chronic pancreatitis. He is a continued smoker. Lives with his , his healthcare proxy. REVIEW OF SYSTEMS: A 14-point review of systems was completed with Mr. Chinchilla and all those not mentioned above were negative. PHYSICAL EXAM: Vital Signs: Temperature 98.5, pulse rate 77, respiratory rate 22, O2 saturation 98% on room air, blood pressure 126/88. General: Mr. Chinchilla is lying in the bed, appears to be in pain. His is at the bedside. He states he has been in severe pain for months and months and that nothing has helped him including his admission to [facility]. Neuro: He is alert. He is oriented x3. He moves all extremities equally. There is no facial asymmetry or focal weakness. Extraocular movements are intact. Heart: S1, S2. No murmur, rub, or gallop and regular. Lungs are clear to auscultation bilaterally with no accessory muscle use and good aeration. The abdomen is soft. There is pain throughout. Bowel sounds are positive. Extremities: No cyanosis or edema. Skin is intact. DIAGNOSTIC STUDIES/LAB DATA: Sodium 131, potassium 4.1, chloride 99, serum bicarbonate 20, BUN 15, creatinine 0.72, lactic acid 0.3. CRP 4.53. VBG shows pH 7.48, pCO2 33, bicarb 26. WBC 8.5, hemoglobin 17.4, hematocrit 50, platelet count 329. The gallbladder ultrasound shows intrahepatic biliary ductal dilatation and common bile duct is mildly dilated measuring 8 mm, but there are no acute inflammatory changes of the gallbladder or identification of gallstones. ASSESSMENT AND PLAN: Mr. Chinchilla is a 44-year-old male with past medical history of chronic pancreatitis and problems with substance abuse, who presents to the hospital today with concern for abdominal pain. While I appreciate that Mr. Chinchilla may be in pain today, we have offered him Suboxone and methadone in the past and he has refused to take these medications and has had difficulty therefore following up with the pain physicians. He does not meet any criteria for inpatient admission and I do not think that intravenous pain medications are indicated at this point. I recommended to the ED physician that he be discharged to home with or without oral pain medications. More importantly, I recommended strongly that he follow up with his primary care physician routinely. He is a patient at our [facility], which should have support services for him and should be available to see him on a more routine basis so that he can navigate and find a way to manage his pain and his chronic conditions. He should also follow up with GI and has those missed appointments. This was reviewed with Dr. Palomo today. TIME SPENT: Approximately 60 minutes was spent in the consultation of this patient, more than half the time was spent with the patient at the bedside reviewing the events leading up to this hospitalization, performing the physical examination, and reviewing the plan of care for discharge from the ED today. SINDY DUNNE NP [id number]/[facility] #: [id number] JARAD
== END 2019-10-19 14:49 | disposition home or self-care (01) ==
LOC: ED 09:38
DX: R10.10 Upper abdominal pain, unspecified (principal); R11.2 Nausea with vomiting, unspecified; E11.9 Type 2 diabetes mellitus without complications; Z79.4 Long term (current) use of insulin; E78.00 Pure hypercholesterolemia, unspecified; K86.1 Other chronic pancreatitis; Z79.899 Other long term (current) drug therapy; Z87.891 Personal history of nicotine dependence
CPT/HCPCS: 36415; 76705; 80053; 82803; 83605; 83690; 85025; 86140; 96372; 96374; 96375; 99284; A9270-GY; J2270; J2405

== ENCOUNTER 2019-10-22 12:37 | Emergency (ER) | payer OTHER ==
[2019-10-22 12:47] VITALS: BP 118/79
== END 2019-10-22 13:53 | disposition left against medical advice (07) ==
LOC: ED 12:37
DX: R50.9 Fever, unspecified (principal); Z53.21 Procedure and treatment not carried out due to patient leaving prior to being seen by health care provider
CPT/HCPCS: 99282

== ENCOUNTER 2019-11-03 11:36 | Emergency (ER) | payer OTHER ==
[2019-11-03] MEDS ORDERED: NS 0.9% 1000 ML** 1,000 ML IV ONE ×2 (11:50→12:39)
--- NOTE | 2019-11-03 11:50 | ED ---
Abdominal Pain/Male - HPI Summary HPI Summary: Patient is a 44 y/o M presenting to the ED via EMS for a chief complaint of diffuse abdominal pain for the last 2 weeks. Patient also notes cough, diarrhea , urinary frequency, and weight loss. He attributes the cough to recently attempting to quit smoking. He denies nausea or vomiting. Patient notes starting a liquid diet for the abdominal pain without relief. No aggravating or alleviating factors are reported. PMHx is significant for recurrent pancreatitis due to alcohol abuse and DM Type 1 with a history of DKA. PSHx is significant for pancreas resection in 2014 and skin graft surgery. Last alcohol use was in 2002. Patient is a tobacco user. - History of Current Complaint Chief Complaint: EDAbdPain Stated Complaint: PANCREATITIS Time Seen by Provider: 11/03/19 11:40 Hx Obtained From: Patient Onset/Duration: Sudden Onset, Lasting Weeks - 2 weeks, Still Present Timing: Constant Severity Initially: Severe Severity Currently: Severe Pain Intensity: 10 Pain Scale Used: 0-10 Numeric Location: Diffuse Radiates: No Aggravating Factor(s): Nothing Alleviating Factor(s): Nothing Associated Signs And Symptoms: Positive: Cough, Urinary Symptoms - Positive urinary frequency, Diarrhea. Negative: Nausea, Vomiting - Allergies/Home Medications Allergies/Adverse Reactions: Allergies Allergy/AdvReac Type Severity Reaction Status Date / Time No Known Allergies Allergy Verified 10/22/19 12:48 Home Medications: Home Medications Gemfibrozil TAB* [Lopid TAB*] 600 mg PO BID 12/23/17 [History Confirmed ] Gabapentin CAP(*) [Neurontin 300 CAP(*)] 300 mg PO TID 08/13/19 [History Confirmed 11/03/19] Cholecalciferol CAP/TAB(NF) [Vitamin D3 CAP/TAB (NF)] 5,000 unit PO WEEKLY 09/30 [History Confirmed 11/03/19] Insulin Glargine,Hum.rec.anlog [Lantus Solostar 100 units/ml 3 ml x 5 PENS] 25 units SUBCUT QPM 09/30/19 [History Confirmed 11/03/19] Insulin Glargine,Hum.rec.anlog [Lantus Solostar 100 units/ml 3 ml x 5 PENS] 60 units SUBCUT QAM 09/30/19 [History Confirmed 11/03/19] Ursodiol CAP* [Actigall CAP 300 MG*] 300 mg PO TID 09/30/19 [History Confirmed 11/03/19] Calcium Carbonate/Vitamin D3 [Oyster Shell 500Mg-Vit D3 5Mcg] 1 each PO DAILY [History Confirmed 11/03/19] Insulin ASPART (NF) [Novolog 100 units/ml 10 ml VIAL (NF)] 10 units SUBCUT TID AC 11/03/19 [History Confirmed 11/03/19] Nicotine [Nicotrol NS 10 MG/ML NASAL SPRAY] 10 mg BOTH NARES Q2H PRN 11/03/19 [ History Confirmed 11/03/19] Pancrelipase (NF) [Creon (NF)] 36,000 units PO TID WITH MEALS 11/03/19 [History Confirmed 11/03/19] Sucralfate TAB* [Carafate*] 1 gm PO TID 11/03/19 [History Confirmed 11/03/19] PMH/Surg Hx/FS Hx/Imm Hx Previously Healthy: Yes Endocrine/Hematology History: Reports: Hx Diabetes - Type 1, Other Endocrine/ Hematological Disorders - pancreatitis, h/o necrotizing; DKA Denies: Hx Thyroid Disease Cardiovascular History: Reports: Hx Hypercholesterolemia Denies: Hx Congestive Heart Failure, Hx Hypertension Respiratory History: Denies: Hx Asthma, Hx Chronic Obstructive Pulmonary Disease (COPD) GI History: Reports: Hx Gastroesophageal Reflux Disease, Other GI Disorders - Pancreatitis - chronic, splenic necrosis Denies: Hx Ulcer History: Denies: Hx Dialysis, Hx Renal Disease Sensory History: Denies: Hx Cataracts, Hx Contacts or Glasses, Hx Eye Injury, Hx Eye Prosthesis, Hx Glaucoma, Hx Legally Blind, Hx Macular Degeneration, Hx Vision Problem, Hx Deafness, Hx Hearing Aid, Hx Hearing Problem, Other Sensory Impairments Opthamlomology History: Denies: Hx Cataracts, Hx Contacts or Glasses, Hx Eye Injury, Hx Eye Prosthesis, Hx Glaucoma, Hx Legally Blind, Hx Macular Degeneration, Hx Vision Problem, Other Sensory Impairments EENT History: Denies: Hx Deafness Neurological History: Denies: Hx Dementia, Hx Developmental Delay, Hx Headaches, Hx Migraine, Hx Nerve Disease, Hx Seizures, Hx Spinal Cord Injury, Hx Transient Ischemic Attacks (TIA), Other Neuro Impairments/Disorders Psychiatric History: Reports: Hx Depression, Hx Substance Abuse - ETOH - Surgical History Surgical History: Yes Surgery Procedure, Year, and Place: Pancreas resection, 2015. Skin graft surgery Hx Anesthesia Reactions: No - Immunization History Date of Tetanus Vaccine: utd Date of Influenza Vaccine: fall 2016 Infectious Disease History: Yes Infectious Disease History: Reports: Hx Clostridium Difficile Denies: Hx Hepatitis, Hx Human Immunodeficiency Virus (HIV), Hx of Known/ Suspected MRSA, Hx Shingles, Hx Tuberculosis, Traveled Outside the [place] in Last 30 Days - Family History Known Family History: Positive: Other - brother high triglycerides (>1,000) - Social History Occupation: Unemployed Lives: With Family Alcohol Use: Sober since 2002 Alcohol Amount: quit in 2002 Hx Substance Use: Yes Substance Use Type: Reports: Marijuana Substance Use Comment - Amount & Last Used: Marijuana used occasionally to increase appetite and treat pain Hx Tobacco Use: Yes Smoking Status (MU): Current Every Day Smoker Type: Cigarettes Amount Used/How Often: 1/2 ppd Have You Smoked in the Last Year: Yes Review of Systems Positive: Other - Positive weight loss Positive: Cough Positive: Abdominal Pain - Diffuse, Diarrhea. Negative: Vomiting, Nausea Positive: frequency - Urinary All Other Systems Reviewed And Are Negative: Yes Physical Exam - Summary Physical Exam Summary: Constitutional: Well-developed. Alert. (-) Distressed. Appears weak and fatigued , catechetic, poor dentition Skin: Warm, Dry HENT: Normocephalic; Atraumatic Eyes: Conjunctiva normal Neck: Musculoskeletal ROM normal neck. (-) JVD, (-) Stridor, (-) Tracheal deviation Cardio: Rhythm regular, rate normal, Heart sounds normal; Intact distal pulses; The pedal pulses are 2+ and symmetric. Radial pulses are 2+ and symmetric. (-) Murmur Pulmonary/Chest wall: Effort normal. (-) Respiratory distress, (-) Wheezes, (-) Rales Abd: Soft, (-) Distension, (-) Guarding, (-) Rebound. Generalized tenderness. Old surgical scar noted. Musculoskeletal: (-) Edema Lymph: (-) Cervical adenopathy Neuro: Alert, Oriented x3 Psych: Mood and affect Normal Triage Information Reviewed: Yes Vital Signs On Initial Exam: Initial Vitals Temp Pulse Resp BP Pulse Ox 98.2 F 75 24 135/85 97 11/03/19 11:39 03/30/20 11:39 11/03/19 11:39 11/03/19 11:39 11/03/19 11:39 Vital Signs Reviewed: Yes Procedures - Sedation Patient Received Moderate/Deep Sedation with Procedure: No Diagnostics - Vital Signs Vital Signs Temp Pulse Resp BP Pulse Ox 11/03/19 11:39 98.2 F 75 24 135/85 97 - Laboratory Result Diagrams: 11/03/19 11:50 11/03/19 11:50 Lab Statement: Any lab studies that have been ordered have been reviewed, and results considered in the medical decision making process. Re-Evaluation - Re-Evaluation First Eval Re-Evaluation Time: 13:11 Change: Unchanged Comment: At 13:11, patients nurse reports that patient states he does not want to stay in the ED. Second Eval Re-Evaluation Time: 13:17 Change: Unchanged Comment: At 13:17, I discussed the benefits of remaining in the ED for treatment. Patient understands the risks of leaving the ED and will leave against medical advice. Abdominal Pain Male Course/Dx - Course Course Of Treatment: Patient is a 44 y/o M presenting to the ED for a chief complaint of diffuse abdominal pain for the last 2 weeks. Patient also notes cough, diarrhea, urinary frequency, and weight loss. He denies nausea or vomiting. PMHx is significant for recurrent pancreatitis due to alcohol abuse and DM Type 1 with a history of DKA. PSHx is significant for pancreas resection in 2014 and skin graft surgery. Last alcohol use was in 2002. On exam, patient appears weak and fatigued, catechetic, poor dentition, generalized abdominal tenderness, old surgical scar noted on abdomen. In the ED course, patient was given insulin 20 units SQ and IVF. Laboratory abnormal findings: Glucose 528, total bilirubin 2.9, AST 221, ALT 254, alkaline phosphatase 905. UA shows 3+ glucose. All other abnormal lab results are not pertinent to current cc. Repeat blood glucose in the 300s. Patient declining further workup and requesting discharge home, states he feels anxious and does not want to be in the hospital at this time. Patient encouraged to stay hydrated, take his medications as directed, and follow up with his PCP in the next several days. Patient discharged with a diagnosis of chronically elevated LFTs and hyperglycemia. Follow up with PCP in 2 days. - Diagnoses Provider Diagnoses: Hyperglycemia, Elevated LFTs Discharge ED - Sign-Out/Discharge Documenting (check all that apply): Patient Departure - AMA - Discharge Plan Condition: Stable Disposition: AGAINST MEDICAL ADVICE Patient Education Materials: Diabetic Hyperglycemia (ED) Referrals: Azael Olvera MD [Primary Care Provider] - 2 Days Additional Instructions: RETURN TO THE EMERGENCY DEPARTMENT FOR CHANGING OR WORSENING SYMPTOMS. Follow up with your primary care physician in 2 days. - Billing Disposition and Condition Condition: STABLE Disposition: Against Medical Advice - Attestation Statements Document Initiated by Scribe: Yes Documenting Scribe: Kelly Harding Provider For Whom Scribe is Documenting (Include Credential): Elvis Parikh DO Scribe Attestation: Kelly Garcia scribed for Elvis Parikh DO on 11/03/19 at 1650. Scribe Documentation Reviewed: Yes Provider Attestation: The documentation as recorded by the Kelly miller accurately reflects the service I personally performed and the decisions made by , Elvis Parikh DO Status of Scribe Document: Viewed
--- OUTSIDE RECORDS SUMMARY | 2019-11-03 11:50 | XMS REPORT | Continuity of Care Document ---
:1975 External Reference #:[id number] Author Name Sindy Dunne N.P. (transmitted by agent of provider Marychuy Myrick) Address [address], [place] [address] Care Team Providers Name Role Phone Azael Olvera MD - Hospitalist Care Team Information Specialty Cook [phone] Problems Active Problems Provider Date Disorder of [...] and vomiting Azael Olvera MD Onset: 04/24/2018 Recurrent major depressive episodes Azael Olvera MD Onset: 06/20/2018 Intermittent explosive disorder Azael Olvera MD Onset: 06/20/2018 Chronic pancreatitis Azael Olvera MD Onset: 10/02/2018 Nondependent cannabis abuse, continuous Azael Olvera MD Onset: 10/02/2018 Type 1 diabetes mellitus uncontrolled Azael Olvera MD Onset: 12/11/2018 High enzyme level in serum Azael Olvera MD Onset: 12/11/2018 On examination - rebound - right hypochondrium Azael Olvera MD Onset: 2018 Elevated levels of transaminase & lactic acid Klever Palomo M.D. Onset: 01/2020 dehydrogenase Social History Type Date Description Comments Sex [...] Medications SIG Qnty Indications Ordering Date Provider Novolog inject 10U with each 10ml Magali Deras, 10/30/2019 meal Plus sliding DO 100Unit/ML scale Achs: 201-250 Solution 4U, 251-300 8U, 301-350 10U, 351-400 12U, 401 and above 14U Syringe for use 4 times a day 200units Azael Olvera MD 05/01/2019 Precisedose with meal Dispenser/1ML/Tip time/sliding scale Cap insulin for diabetes 1ML Syr Misc mellitus True Metrix Blood testing blood glucose 100units E11.9 Azael Olvera MD 04/30 Glucosetest Strips four times a day for diabetes mellitus Strips Gabapentin 1 by mouth three 90caps E11.9 Magali Deras, 04/30/2019 300mg times a day DO Capsules Nicotrol use every 2 hours as 168units F17.210 Azael Olvera MD 04/30/2019 10mg needed for nicotine Inhaler cravings. Lantus Solostar 60 units in am 25 30ml Azael Olvera MD 04/04/2019 units in pm can be 100Unit/ML substituted with what Solution insurance will cover Pen-Inject mdd 85 units. Antibiotic-Unspeci has 2-3 days left of Azael Olvera MD 12/11/2018 fied course Creon take 1 pill with each 90caps K86.0 Azael Olvera MD 12/11/[address] [place] Gemfibrozil 1 tab twice a day 60tabs K86.0 Azael Olvera MD 12/11/2018 600mg Tablets True Metrix Blood testing blood glucose 100units Rodrigo Jade MD 2018 Glucosetest Strips four times a day for diabetes mellitus Strips Freestyle place device on skin 3units Rodrigo Jade MD 06/06/2018 Karla/Sensor/Flash every 10 days; use Monitoring System with reader every 8 hours Misc Freestyle use every 8 hours 1units Rodrigo Jade MD 06/06/2018 Karla/[place]/Flash with sensor Monitoring System Device True Metrix Go For Type 1 Diabetes 1units E11.65 Azael Olvera MD 05/30/2018 Blood Glucose Mellitus, for blood Meter glucose monitoring 4 w/Device times a day Kit Lancets 28G use with glucometer, 100units Rodrigo Jade MD 04/24/2018 28G check bs 3-4 times Misc daily Pen [place] 1 needle twice a day 100units Azael Olvera MD 03/14/2018 32G X for insulin 6 mm Misc administration for diabetes mellitus Lancets For use with your 100units E11.65 Azael Olvera MD 03/08/2018 30G Misc glucometer Ursodiol take 1 capsule by Unknown 300mg mouth 3 times per day Capsules Carafate take 1 tablet by Unknown 1gm mouth 3 times a day Tablets Vitamin D3 Maximum 1 by mouth weekly Unknown Strength 5000Unit Capsules Oyster Calcium 1 tab by mouth once a Unknown day 500mg Tablets Suboxone Unknown 8-2mg Film History Medications Humalog inject 10U with 10ml Magali Senner, DO 10/28/2019 - 100Unit/ML each meal Plus 10/30/2019 Solution sliding scale Achs: 201-250 4U, 251-300 8U, 301-350 10U, 351-400 12U, 401 and above 14U Immunizations Description No Information Available Vital Signs [...] % BldC Oximetry 98 % Results Test Acquired Date Facility Test Result H/L Range Note CBC Auto 10/19/2019 [facility] White Blood 8.5 10^3/uL Normal 3.5-10.[address] [place] [address] [phone] Red Blood Count 5.03 10^6/uL Normal 4.18-5.48 Hemoglobin 17.4 g/dL Normal 14.0-18.0 Hematocrit 50 % Normal 42-52 Mean Corpuscular Volume 98 fL High 80-94 Mean Corpuscular Hemoglobin 35 pg High 27-31 Mean Corpuscular HGB Conc 35 g/dL Normal 31-36 Red Cell Distribution Width 14 % Normal 10-15 Platelet Count 329 10^3/uL Normal 150-450 Mean Platelet Volume 8.8 fL Normal 7.4-10.4 Abs Neutrophils 6.9 10^3/uL Normal 1.5-7.7 Abs Lymphocytes 1.1 10^3/uL Normal 1.0-4.8 Abs Monocytes 0.4 10^3/uL Normal 0-0.8 Abs Eosinophils 0.0 10^3/uL Normal 0-0.6 Abs Basophils 0.1 10^3/uL Normal 0-0.2 Abs Nucleated RBC 0.0 10^3/uL Granulocyte % 80.5 % Lymphocyte % 13.4 % Monocyte % 4.8 % Eosinophil % 0.4 % Basophil % 0.9 % Nucleated Red Blood Cells % 0.0 Comp Metabolic Panel 10/19/2019 [facility] Sodium 131 mmol/L Low 135-[address] [place] [address] [phone] Potassium 4.1 mmol/L Normal 3.5-5.0 Chloride 99 mmol/L Low 101-111 Co2 Carbon Dioxide 20 mmol/L Low 22-32 Anion Gap 12 mmol/L High 2-11 Glucose 371 mg/dL High 70-100 Blood Urea Nitrogen 15 mg/dL Normal 6-24 Creatinine 0.72 mg/dL Normal 0.67-1.17 BUN/Creatinine Ratio 20.8 High 8-20 Calcium 9.7 mg/dL Normal 8.6-10.3 Total Protein 8.1 g/dL Normal 6.4-8.9 Albumin 4.4 g/dL Normal 3.2-5.2 Globulin 3.7 g/dL Normal 2-4 Albumin/Globulin Ratio 1.2 Normal 1-3 Total Bilirubin 1.60 mg/dL High 0.2-1.0 Alkaline Phosphatase 900 U/L High 34-104 Alt 178 U/L High 7-52 Ast 122 U/L High 13-39 Egfr Non- 119.1 >60 Egfr 144.2 >60 1 Laboratory test 10/19/2019 [facility] Lipase 21 U/L Normal 11.0-82.[address] [place] [address] [phone] C Reactive Protein 4.53 mg/L Normal <8.01 Lactic Acid 0.3 mmol/L Low 0.5-2.0 2 Venous Blood 10/19/2019 [facility] Venous Blood 7.48 High 7.32 -7.[address] [place] [address] [phone] Venous Pco2 33 mmHg Low 41-51 Venous Po2 62.0 mmHg High 35-45 Venous O2 Saturation 94.8 % High 70-80 Venous Blood Base Excess 1.6 mmol/L Normal 0.0-4.0 3 Venous Bicarbonate Hco3 26.0 mmol/L Normal 24-28 Venous Blood 09/30/2019 [facility] Venous Blood 7.41 Normal 7.32-7.[address] [place] [address] [phone] Venous Pco2 41 mmHg Normal 41-51 Venous Po2 50.0 mmHg High 35-45 Venous O2 Saturation 87.2 % High 70-80 Venous Blood Base Excess 1.2 mmol/L Normal 0.0-4.0 4 Venous Bicarbonate Hco3 25.4 mmol/L Normal 24-28 CBC Auto 09/30/2019 [facility] White Blood 7.2 10^3/uL Normal 3.5-10.[address] [place] [address] [phone] Red Blood Count 3.85 10^6/uL Low 4.18-5.48 Hemoglobin 13.4 g/dL Low 14.0-18.0 Hematocrit 39 % Low 42-52 Mean Corpuscular Volume 101 fL High 80-94 Mean Corpuscular Hemoglobin 35 pg High 27-31 Mean Corpuscular HGB Conc 35 g/dL Normal 31-36 Red Cell Distribution Width 15 % Normal 10-15 Platelet Count 380 10^3/uL Normal 150-450 Mean Platelet Volume 8.8 fL Normal 7.4-10.4 Abs Neutrophils 5.9 10^3/uL Normal 1.5-7.7 Abs Lymphocytes 0.8 10^3/uL Low 1.0-4.8 Abs Monocytes 0.4 10^3/uL Normal 0-0.8 Abs Eosinophils 0.0 10^3/uL Normal 0-0.6 Abs Basophils 0.1 10^3/uL Normal 0-0.2 Abs Nucleated RBC 0.0 10^3/uL Granulocyte % 81.6 % Lymphocyte % 10.5 % Monocyte % 6.2 % Eosinophil % 0.6 % Basophil % 1.1 % Nucleated Red Blood Cells % 0.1 Comp Metabolic Panel 09/30/2019 [facility] Sodium 127 mmol/L Low 135-[address] [place], [place] [id number] [phone] Chloride 93 mmol/L Low 101-111 Co2 Carbon Dioxide 25 mmol/L Normal 22-32 Blood Urea Nitrogen 12 mg/dL Normal 6-24 Creatinine 0.81 mg/dL Normal 0.67-1.17 BUN/Creatinine Ratio 14.8 Normal 8-20 Calcium 9.2 mg/dL Normal 8.6-10.3 Total Protein 7.1 g/dL Normal 6.4-8.9 Albumin 4.1 g/dL Normal 3.2-5.2 Globulin 3.0 g/dL Normal 2-4 Albumin/Globulin Ratio 1.4 Normal 1-3 Total Bilirubin 1.20 mg/dL High 0.2-1.0 Alkaline Phosphatase 740 U/L High 34-104 Alt 187 U/L High 7-52 Egfr Non- 104.0 >60 Egfr 125.8 >60 5 Glucose 890 mg/dL Critical high 70-100 6 Potassium 4.6 mmol/L Normal 3.5-5.0 Anion Gap 9 mmol/L Normal 2-11 Ast 135 U/L High 13-39 Laboratory test 09/30/2019 [facility] Lipase 46 U/L Normal 11.0-82.[address] [place] [address] [phone] C Reactive Protein 4.44 mg/L Normal <8.01 Triglyceride 356 mg/dL 7 Urine Drug 09/16/2019 [facility] Urine None Detected None Detect SCR ED & [address] [place] [address] Screen [phone] Urine Barbiturates Screen None Detected None Detect Urine Benzodiazepine Screen None Detected None Detect Urine Cannabinoids Screen None Detected None Detect Urine Cocaine Screen None Detected None Detect Urine Opiates Screen None Detected None Detect Urine Phencyclidine Screen None Detected None Detect 8 Urinalysis Profile 09/16/2019 [facility] Urine Color Jenae [address] [place] [address] [phone] Urine Appearance Cloudy Urine Specific [place] 1.018 Normal 1.010-1.030 Urine pH 7.0 Normal 5-9 Urine Urobilinogen Positive Abnormal Negative Urine Ketones Negative Negative Urine Protein Negative Negative Urine Leukocytes Negative Negative Urine Blood Negative Negative Urine Nitrite Negative Negative Urine Bilirubin Negative Negative Urine Glucose 3+(>=500 mg/dL) Abnormal Negative Urine White Blood Cell Absent Absent Urine Red Blood Cell Absent Absent Urine Bacteria Absent Absent Urine Amorphous Crystals Present Abnormal Absent Laboratory test 09/16/2019 [facility] Point of 283 mg/dL High 70-100 [address] [place] [place] [address] [phone] CBC Auto Diff 09/15/2019 [facility] White Blood 11.4 High 3.5- 10.[address] Count 10^3/[place] [address] [phone] Red Blood Count 4.66 10^6/uL Normal 4.18-5.48 Hemoglobin 15.9 g/dL Normal 14.0-18.0 Hematocrit 45 % Normal 42-52 Mean Corpuscular Volume 97 fL High 80-94 Mean Corpuscular Hemoglobin 34 pg High 27-31 Mean Corpuscular HGB Conc 35 g/dL Normal 31-36 Red Cell Distribution Width 14 % Normal 10-15 Platelet Count 298 10^3/uL Normal 150-450 Mean Platelet Volume 8.9 fL Normal 7.4-10.4 Abs Neutrophils 8.1 10^3/uL High 1.5-7.7 Abs Lymphocytes 2.0 10^3/uL Normal 1.0-4.8 Abs Monocytes 1.1 10^3/uL High 0-0.8 Abs Eosinophils 0.1 10^3/uL Normal 0-0.6 Abs Basophils 0.1 10^3/uL Normal 0-0.2 Abs Nucleated RBC 0.0 10^3/uL Granulocyte % 71.4 % Lymphocyte % 17.7 % Monocyte % 9.4 % Eosinophil % 0.8 % Basophil % 0.7 % Nucleated Red Blood Cells % 0.0 Comp Metabolic 09/15/2019 [facility] Sodium 135 mmol/L Normal 135-145 Panel [address] [place] [address] [phone] Chloride 94 mmol/L Low 101-111 Co2 Carbon Dioxide 34 mmol/L High 22-32 Glucose 341 mg/dL High 70-100 Blood Urea Nitrogen 11 mg/dL Normal 6-24 Creatinine 0.92 mg/dL Normal 0.67-1.17 BUN/Creatinine Ratio 12.0 Normal 8-20 Calcium 10.1 mg/dL Normal 8.6-10.3 Total Protein 7.7 g/dL Normal 6.4-8.9 Albumin 4.5 g/dL Normal 3.2-5.2 Globulin 3.2 g/dL Normal 2-4 Albumin/Globulin Ratio 1.4 Normal 1-3 Total Bilirubin 6.60 mg/dL High 0.2-1.0 Alkaline Phosphatase 767 U/L High 34-104 Alt 403 U/L High 7-52 Egfr Non- 89.8 >60 Egfr 108.6 >60 10 Potassium 3.9 mmol/L Normal 3.5-5.0 Anion Gap 7 mmol/L Normal 2-11 Ast 388 U/L High 13-39 Laboratory test 09/15/2019 [facility] Lipase 53 U/L Normal 11.0-82.0 finding [address] [place] [address] [phone] C Reactive Protein 8.73 mg/L High <8.01 Urinalysis Profile 09/03/2019 [facility] Urine Color Yellow [address] [place] [address] [phone] Urine Appearance Cloudy Urine Specific [place] 1.030 Normal 1.010-1.030 Urine pH 8.0 Normal 5-9 Urine Urobilinogen Negative Negative Urine Ketones Negative Negative Urine Protein Negative Negative Urine Leukocytes Negative Negative Urine Blood Negative Negative Urine Nitrite Negative Negative Urine Bilirubin Negative Negative Urine Glucose 3+(>=500 mg/dL) Abnormal Negative Laboratory test 09/03/2019 [facility] Magnesium 1.7 mg/dL Low 1.9-2.7 finding [address] [place] [address] [phone] Amylase 25 U/L Low 29-103 Lipase 47 U/L Normal 11.0-82.0 Creatine Kinase(CK) 37 U/L Normal 10-223 C Reactive Protein 2.64 mg/L Normal <8.01 Troponin-I (TnI) 0.01 ng/mL <0.03 11 Comp Metabolic Panel 09/03/2019 [facility] Sodium 133 mmol/L Low 135-[address] [place] [address] [phone] Potassium 3.4 mmol/L Low 3.5-5.0 Chloride 96 mmol/L Low 101-111 Co2 Carbon Dioxide 29 mmol/L Normal 22-32 Anion Gap 8 mmol/L Normal 2-11 Glucose 358 mg/dL High 70-100 Blood Urea Nitrogen 8 mg/dL Normal 6-24 Creatinine 0.76 mg/dL Normal 0.67-1.17 BUN/Creatinine Ratio 10.5 Normal 8-20 Calcium 9.0 mg/dL Normal 8.6-10.3 Total Protein 6.6 g/dL Normal 6.4-8.9 Albumin 3.8 g/dL Normal 3.2-5.2 Globulin 2.8 g/dL Normal 2-4 Albumin/Globulin Ratio 1.4 Normal 1-3 Total Bilirubin 1.20 mg/dL High 0.2-1.0 Alkaline Phosphatase 314 U/L High 34-104 Alt 273 U/L High 7-52 Ast 227 U/L High 13-39 Egfr Non- 111.9 >60 Egfr 135.4 >60 12 CBC Auto 09/03/2019 [facility] White Blood 8.0 10^3/uL Normal 3.5-10.[address] [place] [address] [phone] Red Blood Count 4.83 10^6/uL Normal 4.18-5.48 Hemoglobin 16.2 g/dL Normal 14.0-18.0 Hematocrit 46 % Normal 42-52 Mean Corpuscular Volume 96 fL High 80-94 Mean Corpuscular Hemoglobin 34 pg High 27-31 Mean Corpuscular HGB Conc 35 g/dL Normal 31-36 Red Cell Distribution Width 14 % Normal 10-15 Platelet Count 248 10^3/uL Normal 150-450 Mean Platelet Volume 8.7 fL Normal 7.4-10.4 Abs Neutrophils 5.8 10^3/uL Normal 1.5-7.7 Abs Lymphocytes 1.5 10^3/uL Normal 1.0-4.8 Abs Monocytes 0.5 10^3/uL Normal 0-0.8 Abs Eosinophils 0.1 10^3/uL Normal 0-0.6 Abs Basophils 0.0 10^3/uL Normal 0-0.2 Abs Nucleated RBC 0.0 10^3/uL Granulocyte % 72.7 % Lymphocyte % 19.3 % Monocyte % 6.6 % Eosinophil % 0.9 % Basophil % 0.5 % Nucleated Red Blood Cells % 0.0 Laboratory 09/03/2019 [facility] Partial 30.0 Normal 26.0- 38.0 test finding [address] [place] [address] PTT [phone] Inr/Protime 09/03/2019 [facility] Inr 0.91 Normal 0.82-1.[address] [place] [address] [phone] Laboratory 09/03/2019 [facility] B-Type 22 pg/mL <=[address] [place] [address] Peptide BNP [phone] Lactic Acid 2.8 mmol/L Critical high 0.5-2.0 14 Laboratory test 09/03/2019 [facility] Point of Care 354 mg/dL High 70-100 [address] [place] [address] [phone] Laboratory test 09/03/2019 [facility] Point of Care 293 mg/dL High 70-[address] [place] [address] [phone] Laboratory test 05/05/2019 [facility] Point of Care 279 mg/dL High 70-[address] [place] [address] [phone] Laboratory test 05/04/2019 [facility] Point of Care 276 mg/dL High 70-100 [address] [place] [address] [phone] Laboratory test 05/04/2019 [facility] Triglyceride 2626 [address] mg/[place] [address] [phone] Urinalysis 05/04/2019 [facility] Urine Color Straw Profile [address] [place] [address] [phone] Urine Appearance Clear Urine Specific [place] 1.029 Normal 1.010-1.030 Urine pH 6.0 Normal 5-9 Urine Urobilinogen Negative Negative Urine Ketones Trace Abnormal Negative Urine Protein Negative Negative Urine Leukocytes Negative Negative Urine Blood Negative Negative Urine Nitrite Negative Negative Urine Bilirubin Negative Negative Urine Glucose 3+(>=500 mg/dL) Abnormal Negative Laboratory test 05/04/2019 [facility] Lipase 79 U/L Normal 11.0-82.[address] [place] [address] [phone] TSH (Thyroid Stim Horm) 2.27 mcIU/mL Normal 0.34-5.60 Free T4 (Free Thyroxine) 1.34 ng/dL High 0.61-1.12 CBC Auto 05/04/2019 [facility] White Blood 11.3 10^3/uL High 3.5-10.[address] [place] [address] [phone] Red Blood Count 5.40 10^6/uL Normal 4.18-5.48 Hemoglobin 17.3 g/dL Normal 14.0-18.0 Hematocrit 50 % Normal 42-52 Mean Corpuscular Volume 92 fL Normal 80-94 Mean Corpuscular Hemoglobin 32 pg High 27-31 Mean Corpuscular HGB Conc 35 g/dL Normal 31-36 Red Cell Distribution Width 14 % Normal 10-15 Abs Neutrophils 8.9 10^3/uL High 1.5-7.7 Abs Lymphocytes 1.0 10^3/uL Normal 1.0-4.8 Abs Monocytes 1.3 10^3/uL High 0-0.8 Abs Eosinophils 0.1 10^3/uL Normal 0-0.6 Abs Basophils 0.0 10^3/uL Normal 0-0.2 Abs Nucleated RBC 0.1 10^3/uL Granulocyte % 78.4 % Lymphocyte % 8.8 % Monocyte % 11.7 % Eosinophil % 0.7 % Basophil % 0.4 % Nucleated Red Blood Cells % 0.4 Platelet Count 214 10^3/uL Normal 150-450 Mean Platelet Volume 10.0 fL Normal 7.4-10.4 Laboratory test 05/04/2019 [facility] C Reactive 135.99 mg/L High <8.[address] [place] [address] [phone] Comp Metabolic 05/04/2019 [facility] Sodium 121 mmol/L Low 135 -[address] [place] [address] [phone] Chloride 88 mmol/L Low 101-111 Co2 Carbon Dioxide 22 mmol/L Normal 22-32 Calcium 8.5 mg/dL Low 8.6-10.3 Albumin 4.1 g/dL Normal 3.2-5.2 Total Bilirubin 0.60 mg/dL Normal 0.2-1.0 Glucose 490 mg/dL High 70-100 Blood Urea Nitrogen 18 mg/dL Normal 6-24 Creatinine 0.89 mg/dL Normal 0.67-1.17 BUN/Creatinine Ratio 20.2 High 8-20 Total Protein 7.4 g/dL Normal 6.4-8.9 Globulin 3.3 g/dL Normal 2-4 Albumin/Globulin Ratio 1.2 Normal 1-3 Alkaline Phosphatase 178 U/L High 34-104 Egfr Non- 93.7 >60 Egfr 113.4 >60 20 Potassium TNP mmol/L 3.5-5.0 21 Anion Gap 11 mmol/L Normal 2-11 Ast TNP U/L 13-39 22 Alt 47 U/L Normal 7-52 Laboratory 05/04/2019 [facility] Lactic Acid 0.7 Normal 0.5- 2.0 23 test finding [address] mmol/[place] [address] [phone] Laboratory 05/04/2019 [facility] Point of Care > 444 Critical 70-100 24 test finding [address] Glucose mg/[place] [address] [phone] Laboratory 05/04/2019 [facility] Glucose 555 Critical 70-100 25 test finding [address] Confirmatory mg/[place] [address] [phone] Venous Blood 05/04/2019 [facility] Venous Blood 7.47 High 7.32 -7.[address] [place] [address] [phone] Venous Pco2 44 mmHg Normal 41-51 Venous Po2 43.0 mmHg Normal 35-45 Venous O2 Saturation 83.8 % High 70-80 Venous Blood Base Excess 7.4 mmol/L High 0.0-4.0 26 Venous Bicarbonate Hco3 30.2 mmol/L High 24-28 Laboratory test 05/04/2019 [facility] Potassium 5.3 mmol/L High 3.5-5.[address] Redraw [place], [place] [address] [phone] Ast Redraw 35 U/L Normal 13-39 Laboratory 05/04/2019 [facility] Point of Care 402 Critical 70 -100 27 test finding [address] Glucose mg/[place] [address] [phone] Laboratory 05/04/2019 [facility] Glucose 370 High 70-100 28, test finding [address] Confirmatory mg/dL 29 [place], [place] [id number] [phone] 1 Because ethnic data is not always readily [...] 15-29 5 Kidney failure <15 (or dialysis) 2 [facility] Severe Sepsis and Septic Shock Management Bundle Measure requires all lactic acids initially measuring >2.0 mmol/L be repeated. 3 Reference ranges based on room air. 4 Reference ranges based on room air. 5 Because ethnic data is not always readily [...] 15-29 5 Kidney failure <15 (or dialysis) 6 Critical Result GLU:890 Called to [id number] at: 14:14:19 by:[id number] Read back by:[id number] Desirable: <150 Borderline High: 150-199 High: 200-499 Very High: >500 8 The urine specimen was tested at the listed cutoffs: Drug class test level (ng/mL) Amphetamines 500 Barbiturates 200 Benzodiazepine metabolites 200 Cocaine metabolites 150 Cannabinoids 50 Opiates 300 Pcp 25 Specimen was received without chain of custody. Results should be used for medical purposes only. 9 Resort Manager: [id number] 10 Because ethnic data is not always [...] 5 Kidney failure <15 (or dialysis) 11 Troponin-I testing on Plasma Separator Tubes (PST) has a known false positive rate of 0.20-0.40%. All positive troponins reflex immediately to secondary confirmatory testing. Using the [employer] DxI 800 Access Immunoassay systems, the 99th percentile upper reference limit was demonstrated to be < 0.03 ng/mL. 12 Because ethnic data is not always readily [...] 15-29 5 Kidney failure <15 (or dialysis) 13 Standard intensity warfarin therapeutic range: 2.0-3.0 High intensity warfarin therapeutic range: 2.5-3.5 14 Critical Result LACT:2.8 Called to [id number] at: 09:12:53 by:[id number] Read back by:[email or web address] [facility] Severe Sepsis and Septic Shock Management Bundle Measure requires all lactic acids initially measuring >2.0 mmol/L be repeated. 15 Resort Manager: [id number] 16 Resort Manager: [id number] 17 Resort Manager: [id number] 18 Resort Manager: [id number] 19 Desirable: <150 Borderline High: 150-199 High: 200-499 Very High: >500 20 Because ethnic data is not always readily [...] 15-29 5 Kidney failure <15 (or dialysis) 21 Specimen Hemolyzed. Result may not be valid. Unable to report test result due to hemolysis. 22 Unable to report test result due to hemolysis. 23 [facility] Severe Sepsis and Septic Shock Management Bundle Measure requires all lactic acids initially measuring >2.0 mmol/L be repeated. 24 Resort Manager: [id number] 25 Verbal to [id number] by [[id number] at 2205 on 05/04/19.Results read back accurately 26 Reference ranges based on room air. 27 Resort Manager: [id number] 28 Comment: hemocue of 402 29 Comment: hemocue of 402 Procedures Description No Information Available Medical Devices Description No Information Available Encounters Type Date Location Provider Dx Diagnosis Office Visit 10/19/2019 [facility] Sindy Dunne N.P. R10.9 Unspecified 11:01a Assoc,pc abdominal pain Hospitalists Z87.19 Personal history of other diseases of the digestive system Office Visit 08/13/2019 9:57a [facility] Tanya Kaila, K86.1 Other chronic Assoc,pc [employer] pancreatitis Hospitalists R73.9 Hyperglycemia, unspecified E78.1 Pure hyperglyceridemia Office Visit 08/12/2019 9:56a [facility] Tanya Kaila, R10.9 Unspecified Assoc,pc [employer] abdominal pain Hospitalists R11.2 Nausea with vomiting, unspecified E11.9 Type 2 diabetes mellitus without complications E78.1 Pure hyperglyceridemia Office Visit 08/11/2019 [facility] Klever R73.9 Hyperglycemia, 9:55a Assoc,pc Lianna Palomo unspecified Hospitalists R74.0 Nonspec elev of levels of transamns & lactic acid dehydrgnse E87.1 Hypo-osmolality and hyponatremia R10.9 Unspecified abdominal pain Z72.0 Tobacco use R11.0 Nausea R11.10 Vomiting, unspecified E78.1 Pure hyperglyceridemia Assessments Date Code Description Provider 10/19/2019 R10.9 Unspecified abdominal pain Sindy Dunne N.P. 10/19/2019 Z87.19 Personal history of other diseases of the Sindy Dunne N.P. digestive system 08/13/2019 K86.1 Other chronic pancreatitis Tanya Kaila, [employer] 08/13/2019 R73.9 Hyperglycemia, unspecified Tanya Kaila, [employer] 08/13/2019 E78.1 Pure hyperglyceridemia Tanya Kaila, [employer] 08/12/2019 R10.9 Unspecified abdominal pain Tanya Kaila, [employer] 08/12/2019 R11.2 Nausea with vomiting, unspecified Tanya Kaila, [employer] 08/12/2019 E11.9 Type 2 diabetes mellitus without complications Tanya Kaila , [employer] 08/12/2019 E78.1 Pure hyperglyceridemia Tanya Kaila, [employer] 08/11/2019 R73.9 Hyperglycemia, unspecified Klever Palomo M.D. 08/11/2019 R74.0 Nonspecific elevation of levels of Klever Palomo M.D. transaminase and lactic acid dehydrogenase [LDH] 08/11/2019 E87.1 Hypo-osmolality and hyponatremia Klever Palomo M.D. 08/11/2019 R10.9 Unspecified abdominal pain Klever Palomo M.D. 08/11/2019 Z72.0 Tobacco use Klever Palomo M.D. 08/11/2019 R11.0 Nausea Klever Palomo M.D. 08/11/2019 R11.10 Vomiting, unspecified Klever Palomo M.D. 08/11/2019 E78.1 Pure hyperglyceridemia Klever Palomo M.D. Plan of Treatment 04/30/2019 - Azael Olvera [id number] Nicotine dependence, cigarettes, uncomplicatedNew Medication:Nicotrol 10 mg - use every 2 hours as needed for nicotine cravings.Comments:Will start nicotine inhaler.E11.9 Type 2 diabetes mellitus without complicationsNew Medication:True [...] Mental Status Description No Information Available Referrals Refer to Reason for Referral Status Appt Date Rodrigo Jade MD hospital follow-up. Saw Dr. Jade inpatient on Sent 201908/11/19. Wanted 2-3 week follow-up [address] [place] [address] [phone] Samuel Bernstein MD chronic pancreatitis. weight loss, Received Complete 01/2020 nausea, vomiting. [address] [place] [address] [phone]
--- OUTSIDE RECORDS SUMMARY | 2019-11-03 11:51 | XMS REPORT | Continuity of Care Document ---
:1975 External Reference #:[id number] Author Name [facility] (transmitted by agent of provider Mylene Mc) Address [address] [place] [address] Care Team Providers Name Role Phone Azael Olvera MD - Hospitalist Care Team Information [employer] [phone] Problems Active Problems Provider Date Disorder of [...] Medications SIG Qnty Indications Ordering Date Provider Admelog inject 10U with each 10ml Azael Olvera MD 05/01/2019 meal Plus additional 100Unit/ML sliding scale Achs: Solution 201-250 4U, 251-300 8U, 301-350 10U, 351-400 12U, 401 and above 14U. Syringe for use 4 times a day [...] day Capsules Nicotrol use every 2 hours as 168units F17.210 Azael Olvera MD 04/30/2019 10mg needed for nicotine Inhaler cravings. Lantus Solostar 60 units in am 25 30ml Azael Olvera MD 04/04/2019 units in pm can be 100Unit/ML substituted with what Solution insurance will cover Pen-Inject mdd 85 units. Antibiotic-Unspeci has 2-3 days left of Azeal Olvera MD 12/11/2018 fied course Creon take 1 pill with each 90caps K86.0 Azael Olvera MD 12/11/[id number] [place] Gemfibrozil 1 tab [...] 8 hours 1units Rodrigo Jade MD 06/06/2018 Karla/[place]/Flash with sensor Monitoring System Device True Metrix Go For Type 1 Diabetes 1units E11.65 Azael Olvera MD 05/30/2018 Blood Glucose Mellitus, for blood Meter glucose monitoring 4 w/Device times a day Kit Lancets 28G use with glucometer, 100units Rodrigo Jade MD 04/24/2018 28G check bs 3-4 times Misc daily Pen [place] 1 needle twice a day 100units Azael [...] Result H/L Range Note CBC Auto 10/19/2019 [facility] White Blood 8.5 10^3/uL Normal 3.5-10.[address] [place] [address] [phone] Red Blood Count 5.03 10^6/uL Normal 4.18-5.48 [...] Cells % 0.0 Comp Metabolic Panel 10/19/2019 [facility] Sodium 131 mmol/L Low 135-145 [address] [place] [address] [phone] Potassium 4.1 mmol/L Normal 3.5-5.0 Chloride 99 [...] Egfr 144.2 >60 1 Laboratory test 10/19/2019 [facility] Lipase 21 U/L Normal 11.0-82.[address] [place] [address] [phone] C Reactive Protein 4.53 mg/L Normal <8.01 Lactic Acid 0.3 mmol/L Low 0.5-2.0 2 Venous Blood 10/19/2019 [facility] Venous Blood 7.48 High 7.32 -7.[address] [place] [address] [phone] Venous Pco2 33 mmHg Low 41-51 Venous Po2 62.0 mmHg High 35-45 Venous O2 Saturation 94.8 % High 70-80 Venous Blood Base Excess 1.6 mmol/L Normal 0.0-4.0 3 Venous Bicarbonate Hco3 26.0 mmol/L Normal 24-28 Venous Blood 09/30/2019 [facility] Venous Blood 7.41 Normal 7.32-7.[address] [place] [address] [phone] Venous Pco2 41 mmHg Normal 41-51 Venous Po2 50.0 mmHg High 35-45 Venous O2 Saturation 87.2 % High 70-80 Venous Blood Base Excess 1.2 mmol/L Normal 0.0-4.0 4 Venous Bicarbonate Hco3 25.4 mmol/L Normal 24-28 CBC Auto 09/30/2019 [facility] White Blood 7.2 10^3/uL Normal 3.5-10.[address] [place] [address] [phone] Red Blood Count 3.85 10^6/uL Low 4.18-5.48 [...] Cells % 0.1 Comp Metabolic Panel 09/30/2019 [facility] Sodium 127 mmol/L Low 135-145 [address] [place], [place] [id number] [phone] Chloride 93 mmol/L Low 101-111 Co2 Carbon [...] 135 U/L High 13-39 Laboratory test 09/30/2019 [facility] Lipase 46 U/L Normal 11.0-82.0 finding [address] [place], [place] [address] [phone] C Reactive Protein 4.44 mg/L Normal <8.01 Triglyceride 356 mg/dL 7 Urine Drug 09/16/2019 [facility] Urine None Detected None Detect SCR ED & [address] [facility] [place] [address] Screen [phone] Urine Barbiturates Screen None Detected None Detect Urine Benzodiazepine Screen None Detected None Detect Urine Cannabinoids Screen None Detected None Detect Urine Cocaine Screen None Detected None Detect Urine Opiates Screen None Detected None Detect Urine Phencyclidine Screen None Detected None Detect 8 Urinalysis Profile 09/16/2019 [facility] Urine Color Jenae [address] [place], [place] [id number] [phone] Urine Appearance Cloudy Urine Specific [place] 1.018 Normal 1.010-1.030 Urine pH 7.0 Normal [...] Crystals Present Abnormal Absent Laboratory test 09/16/2019 [facility] Point of 283 mg/dL High 70-100 [address] [place] [address] [phone] CBC Auto Diff 09/15/2019 [facility] White Blood 11.4 High 3.5- 10.[address] Count 10^3/[place] [address] [phone] Red Blood Count 4.66 10^6/uL Normal 4.18-5.48 [...] Blood Cells % 0.0 Comp Metabolic 09/15/2019 [facility] Sodium 135 mmol/L Normal 135-[address] [place] [address] [phone] Chloride 94 mmol/L Low 101-111 Co2 Carbon [...] 388 U/L High 13-39 Laboratory test 09/15/2019 [facility] Lipase 53 U/L Normal 11.0-82.0 finding [address] [place] [address] [phone] C Reactive Protein 8.73 mg/L High <8.01 Urinalysis Profile 09/03/2019 [facility] Urine Color Yellow [address] [place] [address] [phone] Urine Appearance Cloudy Urine Specific [place] 1.030 Normal 1.010-1.030 Urine pH 8.0 Normal 5-9 Urine Urobilinogen Negative Negative Urine Ketones Negative Negative Urine Protein Negative Negative Urine Leukocytes Negative Negative Urine Blood Negative Negative Urine Nitrite Negative Negative Urine Bilirubin Negative Negative Urine Glucose 3+(>=500 mg/dL) Abnormal Negative Laboratory test 09/03/2019 [facility] Magnesium 1.7 mg/dL Low 1.9-2.7 finding [address] [place] [address] [phone] Amylase 25 U/L Low 29-103 Lipase 47 U/L Normal 11.0-82.0 Creatine Kinase(CK) 37 U/L Normal 10-223 C Reactive Protein 2.64 mg/L Normal <8.01 Troponin-I (TnI) 0.01 ng/mL <0.03 11 Comp Metabolic Panel 09/03/2019 [facility] Sodium 133 mmol/L Low 135-145 [address] [place] [address] [phone] Potassium 3.4 mmol/L Low 3.5-5.0 Chloride 96 [...] Egfr 135.4 >60 12 CBC Auto 09/03/2019 [facility] White Blood 8.0 10^3/uL Normal 3.5-10.[address] Count [place], [place] [address] [phone] Red Blood Count 4.83 10^6/uL Normal 4.18-5.48 [...] Red Blood Cells % 0.0 Laboratory 09/03/2019 [facility] Partial 30.0 Normal 26.0- 38.0 test finding [address] [place] [address] PTT [phone] Inr/Protime 09/03/2019 [facility] Inr 0.91 Normal 0.82-1.[address] [place] [address] [phone] Laboratory 09/03/2019 [facility] B-Type 22 pg/mL <=100 test finding [address] [place] [address] Peptide BNP [phone] Lactic Acid 2.8 mmol/L Critical high 0.5-2.0 14 Laboratory test 09/03/2019 [facility] Point of Care 354 mg/dL High 70-[address] [place] [address] [phone] Laboratory test 09/03/2019 [facility] Point of Care 293 mg/dL High 70-100 [address] [place] [address] [phone] Laboratory test 05/05/2019 [facility] Point of Care 279 mg/dL High 70-100 [address] [place] [address] [phone] Laboratory test 05/04/2019 [facility] Point of Care 276 mg/dL High 70-[address] [place] [address] [phone] Laboratory test 05/04/2019 [facility] Triglyceride 2626 [address] mg/[place] [address] [phone] Urinalysis 05/04/2019 [facility] Urine Color Straw Profile [address] [place] [address] [phone] Urine Appearance Clear Urine Specific [place] 1.029 Normal 1.010-1.030 Urine pH 6.0 Normal 5-9 Urine Urobilinogen Negative Negative Urine Ketones Trace Abnormal Negative Urine Protein Negative Negative Urine Leukocytes Negative Negative Urine Blood Negative Negative Urine Nitrite Negative Negative Urine Bilirubin Negative Negative Urine Glucose 3+(>=500 mg/dL) Abnormal Negative Laboratory test 05/04/2019 [facility] Lipase 79 U/L Normal 11.0-82.[address] [place] [address] [phone] TSH (Thyroid Stim Horm) 2.27 mcIU/mL Normal 0.34-5.60 Free T4 (Free Thyroxine) 1.34 ng/dL High 0.61-1.12 CBC Auto 05/04/2019 [facility] White Blood 11.3 10^3/uL High 3.5-10.[address] [place] [address] [phone] Red Blood Count 5.40 10^6/uL Normal 4.18-5.48 [...] 10.0 fL Normal 7.4-10.4 Laboratory test 05/04/2019 [facility] C Reactive 135.99 mg/L High <8.[address] [place] [address] [phone] Comp Metabolic 05/04/2019 [facility] Sodium 121 mmol/L Low 135 -[address] [place] [address] [phone] Chloride 88 mmol/L Low 101-111 Co2 Carbon [...] Alt 47 U/L Normal 7-52 Laboratory 05/04/2019 [facility] Lactic Acid 0.7 Normal 0.5- 2.0 23 test finding [address] mmol/L [place], [place] [address] [phone] Laboratory 05/04/2019 [facility] Point of Care > 444 Critical 70-100 24 test finding [address] Glucose mg/[place] [address] [phone] Laboratory 05/04/2019 [facility] Glucose 555 Critical 70-100 25 test finding [address] Confirmatory mg/dL high [place], [place] [id number] [phone] Venous Blood 05/04/2019 [facility] Venous Blood 7.47 High 7.32 -7.[address] [place] [address] [phone] Venous Pco2 44 mmHg Normal 41-51 Venous Po2 43.0 mmHg Normal 35-45 Venous O2 Saturation 83.8 % High 70-80 Venous Blood Base Excess 7.4 mmol/L High 0.0-4.0 26 Venous Bicarbonate Hco3 30.2 mmol/L High 24-28 Laboratory test 05/04/2019 [facility] Potassium 5.3 mmol/L High 3.5-5.[address] [place] [address] [phone] Ast Redraw 35 U/L Normal 13-39 Laboratory 05/04/2019 [facility] Point of Care 402 Critical 70 -100 27 test finding [address] Glucose mg/[place] [address] [phone] Laboratory 05/04/2019 [facility] Glucose 370 High 70-100 28, test finding [address] Confirmatory mg/dL 29 [place] [address] [phone] Laboratory 04/29/2019 [facility] Point of Care > 444 Critical 70-100 30 test finding [address] Glucose mg/[place] [address] [phone] Venous Blood 04/29/2019 [facility] Venous Blood pH 7.36 Normal 7.32-7.[address] 3 [place] [address] [phone] Venous Pco2 55 mmHg High 41-51 Venous Po2 < 38.0 mmHg Normal 35-45 Venous O2 Saturation 70.3 % Normal 70-80 Venous Blood Base Excess 4.2 mmol/L High 0.0-4.0 31 Venous Bicarbonate Hco3 27.3 mmol/L Normal 24-28 CBC Auto 04/29/2019 [facility] White Blood 10.5 10^3/uL Normal 3.5-10.[address] [place] [address] [phone] Red Blood Count 4.31 10^6/uL Normal 4.18-5.48 Hemoglobin 12.7 g/dL Low 14.0-18.0 32 Hematocrit 38 % Low 42-52 Mean Corpuscular Volume 88 fL Normal 80-94 Mean Corpuscular Hemoglobin 29 pg Normal 27-31 33 Mean Corpuscular HGB Conc 33 g/dL Normal 31-36 34 Red Cell Distribution Width 13 % Normal [...] Blood Cells % 0.2 Laboratory test 04/29/2019 [facility] Lactic Acid 0.9 mmol/L Normal 0.5-2.0 35 finding [address] [place] [address] [phone] Alcohol < 10 mg/dL Normal <10 Comp Metabolic Panel 04/29/2019 [facility] Sodium 120 mmol/L Low 135-145 [address] [place] [address] [phone] Potassium TNP mmol/L 3.5-5.0 Chloride 89 mmol/L [...] Egfr Non- 109.2 >60 Egfr 132.1 >60 36 Laboratory test 04/29/2019 [facility] Creatine 104 U/L Normal 10-223 finding 101 [facility] Kinase(CK) [place] [address] [phone] C Reactive Protein 7.15 mg/L Normal <8.01 Urinalysis Profile 04/29/2019 [facility] Urine Color Straw 37 [address] [place] [address] [phone] Urine Appearance Clear Urine Specific [place] 1.031 High 1.010-1.030 Urine pH 6.0 Normal 5-9 Urine Urobilinogen Negative Negative Urine Ketones 1+ Abnormal Negative Urine Protein Negative Negative Urine Leukocytes Negative Negative Urine Blood Negative Negative Urine Nitrite Negative Negative Urine Bilirubin Negative Negative Urine Glucose 3+(>=500 mg/dL) Abnormal Negative 1 Because ethnic data is not always [...] 5 Kidney failure <15 (or dialysis) 2 [facility] Severe Sepsis and Septic Shock Management [...] dialysis) 6 Critical Result GLU:890 Called to [id number] at: 14:14:19 by:[id number] Read back by:[id number] Desirable: <150 Borderline High: 150-199 High: 200-499 Very High: >500 8 The urine specimen was tested at the listed cutoffs: Drug class test level (ng/mL) Amphetamines 500 Barbiturates 200 Benzodiazepine metabolites 200 Cocaine metabolites 150 Cannabinoids 50 Opiates 300 Pcp 25 Specimen was received without chain of custody. Results should be used for medical purposes only. 9 Laborer Hoisting: [id number] 10 Because ethnic data is not always [...] immediately to secondary confirmatory testing. Using the [employer] DxI 800 Access Immunoassay systems, the 99th [...] 2.5-3.5 14 Critical Result LACT:2.8 Called to [id number] at: 09:12:53 by:[id number] Read back by:[id number] [facility] Severe Sepsis and Septic Shock Management Bundle Measure requires all lactic acids initially measuring >2.0 mmol/L be repeated. 15 Laborer Hoisting: [id number] 16 Laborer Hoisting: [id number] 17 Laborer Hoisting: [id number] 18 Laborer Hoisting: [id number] Desirable: <150 Borderline High: 150-199 High: [...] report test result due to hemolysis. 23 [facility] Severe Sepsis and Septic Shock Management Bundle Measure requires all lactic acids initially measuring >2.0 mmol/L be repeated. 24 Laborer Hoisting: [id number] 25 Verbal to [id number] by [[id number] at 2205 on 05/04/19.Results read back accurately 26 Reference ranges based on room air. 27 Laborer Hoisting: [id number] Comment: hemocue of 402 29 Comment: hemocue of 402 30 Laborer Hoisting: [id number] 31 Reference ranges based on room air. 32 Result corrected for lipemia 33 Result corrected for lipemia 34 Result corrected for lipemia 35 [facility] Severe Sepsis and Septic Shock Management Bundle Measure requires all lactic acids initially measuring >2.0 mmol/L be repeated. 36 Because ethnic data is not always readily [...] 15-29 5 Kidney failure <15 (or dialysis) 37 Urine Source: Clean Catch Procedures Description No Information Available Medical Devices Description No Information Available Encounters Type Date Location Provider Dx Diagnosis Office Visit 08/13/2019 [facility] Tanya Kaila, K86.1 Other chronic 9:57a Assoc[facility] [employer] pancreatitis Hospitalists R73.9 Hyperglycemia, unspecified E78.1 Pure hyperglyceridemia Office Visit 08/12/2019 9:56a [facility] Tanya Kaila, R10.9 Unspecified Assoc[facility] [employer] abdominal pain Hospitalists R11.2 Nausea with vomiting, unspecified E11.9 Type 2 diabetes mellitus without complications E78.1 Pure hyperglyceridemia Office Visit 08/11/2019 [facility] Klever R73.9 Hyperglycemia, 9:55a Assoc,pc Lianna Palomo unspecified Hospitalists R74.0 Nonspec elev of levels of transamns & lactic acid dehydrgnse E87.1 Hypo-osmolality and hyponatremia R10.9 Unspecified abdominal pain Z72.0 Tobacco use R11.0 Nausea R11.10 Vomiting, unspecified E78.1 Pure hyperglyceridemia Office Visit 04/30/2019 3:00p [facility] Internal Azael Olvera, F17.210 Nicotine dependence, Medicine - MD cigarettes, [address] uncomplicated E11.9 Type 2 diabetes mellitus without complications Assessments Date Code Description Provider 08/13/2019 K86.1 Other chronic pancreatitis Tanya Kaila, [employer] CALLER 08/13/2019 R73.9 Hyperglycemia, unspecified Tanya Kaila, [employer]ER 08/13/2019 E78.1 Pure hyperglyceridemia Tanya Kaila, [employer]ER 08/12/2019 R10.9 Unspecified abdominal pain Tanya Kaila, [employer]ER 08/12/2019 R11.2 Nausea with vomiting, unspecified Tanya Kaila, [employer] 08/12/2019 E11.9 Type 2 diabetes mellitus without Tanya Kaila, [employer] complications 08/12/2019 E78.1 Pure hyperglyceridemia Tanya Kaila, [employer]ING[employer]ER 08/11/2019 R73.9 Hyperglycemia, unspecified Klever Palomo M.D. [...] 08/11/2019 E78.1 Pure hyperglyceridemia Klever Palomo M.D. 04/30/2019 F17.210 Nicotine dependence, cigarettes, zAael Olvera MD uncomplicated 04/30/2019 E11.9 Type 2 diabetes mellitus without Azael Olvera MD complications Plan of Treatment 04/30/2019 - Azael Olvera [...] week follow-up [address] [place] [address] [phone] Samuel Bernstein MD chronic pancreatitis. weight loss, Received Complete 01/2020 nausea, vomiting. [address] [place] [address] [phone]
[2019-11-03 12:03] LABS: ABS Basophils 0.1 10^3/ul (0-0.2); ABS Lymphocytes 1.2 10^3/ul (1.0-4.8); ABS Neutrophils 10.8 10^3/ul (1.5-7.7); Eosinophil % 0.2 %; Hematocrit 45 % (42-52); Hemoglobin 15.1 g/dL (14.0-18.0); Lymphocyte % 8.9 %; Mean Corpuscular HGB Conc 33 g/dL (31-36); Mean Corpuscular Hemoglobin 34 pg (27-31); Mean Corpuscular Volume 102 fL (80-94); Mean Platelet Volume 9.5 fL (7.4-10.4); Platelet Count 342 10^3/uL (150-450); Red Blood Count 4.45 10^6 /uL (4.18-5.48); Red Cell Distribution Width 13 % (10-15); White Blood Count 13.1 10^3/uL (3.5-10.8)
[2019-11-03 12:21] LABS: Albumin 3.7 g/dL (3.2-5.2); Albumin/Globulin Ratio 1.2 (1-3); BUN/Creatinine Ratio 14.5 (8-20); Calcium 9.1 mg/dL (8.6-10.3); EGFR African American 151.4 (>60); EGFR Non-African American 125.1 (>60); Globulin 3.2 g/dL (2-4); Potassium 3.3 mmol/L (3.5-5.0); Total Bilirubin 2.9 mg/dL (0.2-1.0); Total Protein 6.9 g/dL (6.4-8.9)
[2019-11-03] MEDS ORDERED: Insulin REGULAR(*) 1 UNITS UNIT SUBCUT ONE (12:39)
[2019-11-03 12:57] LABS: Magnesium 2.1 mg/dL (1.9-2.7)
[2019-11-03 13:14] LABS: Urine Appearance Clear; Urine Bacteria Absent (Absent); Urine Bilirubin Negative (Negative); Urine Blood Negative (Negative); Urine Color Yellow; Urine Glucose 3+(>=500 mg/dL) (Negative); Urine Ketones Negative (Negative); Urine Nitrite Negative (Negative); Urine Protein Negative (Negative); Urine Red Blood Cell Absent (Absent); Urine Specific Gravity 1.031 (1.010-1.030); Urine Urobilinogen Negative (Negative); Urine White Blood Cell Absent (Absent)
[2019-11-03] MEDS ORDERED: Iodixanol* (CONTRAST) 320 MG/ML 100 ML SDV IV ONE (13:16)
[2019-11-03 13:55] VITALS: BP 119/80
== END 2019-11-03 13:54 | disposition left against medical advice (07) ==
LOC: ED 11:36
DX: E10.65 Type 1 diabetes mellitus with hyperglycemia (principal); R05 Cough; E78.00 Pure hypercholesterolemia, unspecified; K21.9 Gastro-esophageal reflux disease without esophagitis; Z79.4 Long term (current) use of insulin; F17.210 Nicotine dependence, cigarettes, uncomplicated; R10.9 Unspecified abdominal pain; R79.89 Other specified abnormal findings of blood chemistry; Z79.899 Other long term (current) drug therapy
CPT/HCPCS: 36415; 80053; 81003; 83690; 83735; 85025; 96360; 99283

== ENCOUNTER 2019-11-10 10:33 | Inpatient (IN) | payer OTHER ==
--- NOTE | 2019-11-10 10:48 | ED ---
Psychiatric Complaint - HPI Summary HPI Summary: 44 year old M presenting to [facility] with a chief complaint of suicidal ideations since trying to OD on cocaine yesterday. The patient rates the pain 3/10 in severity. Symptoms aggravated by nothing. Symptoms alleviated by nothing. Patient reports chronic abdominal pain. Patient denies homicidal ideation. Medication list reviewed. Allergy list reviewed. - History Of Current Complaint Chief Complaint: EDSuicidal Time Seen by Provider: 11/10/19 10:40 Hx Obtained From: Patient Onset/Duration: Still Present Timing: Constant Aggravating Factor(s): Nothing Alleviating Factor(s): Nothing Has Suicidal: Reports: Thoughts Has Homicidal: Denies: Thoughts Ingestion History: Type/Name Of Drug - Cocaine - Allergies/Home Medications Allergies/Adverse Reactions: Allergies Allergy/AdvReac Type Severity Reaction Status Date / Time No Known Allergies Allergy Verified 11/10/19 10:38 Home Medications: Home Medications Gemfibrozil TAB* [Lopid TAB*] 600 mg PO BID 12/23/17 [History Confirmed ] Gabapentin CAP(*) [Neurontin 300 CAP(*)] 300 mg PO TID 08/13/19 [History Confirmed 11/10/19] Cholecalciferol CAP/TAB(NF) [Vitamin D3 CAP/TAB (NF)] 5,000 unit PO WEEKLY 09/30 [History Confirmed 11/10/19] Insulin Glargine,Hum.rec.anlog [Lantus Solostar 100 units/ml 3 ml x 5 PENS] 25 units SUBCUT QPM 09/30/19 [History Confirmed 11/10/19] Insulin Glargine,Hum.rec.anlog [Lantus Solostar 100 units/ml 3 ml x 5 PENS] 60 units SUBCUT QAM 09/30/19 [History Confirmed 11/10/19] Ursodiol CAP* [Actigall CAP 300 MG*] 300 mg PO TID 09/30/19 [History Confirmed 11/10/19] Calcium Carbonate/Vitamin D3 [Oyster Shell 500Mg-Vit D3 5Mcg] 500 mg PO DAILY [History Confirmed 11/10/19] Insulin ASPART (NF) [Novolog 100 units/ml 10 ml VIAL (NF)] 10 units SUBCUT TID AC 11/03/19 [History Confirmed 11/10/19] Nicotine [Nicotrol NS 10 MG/ML NASAL SPRAY] 10 mg BOTH NARES Q2H PRN 11/03/19 [ History Confirmed 11/10/19] Pancrelipase (NF) [Creon (NF)] 36,000 units PO TID WITH MEALS 11/03/19 [History Confirmed 11/10/19] Sucralfate TAB* [Carafate*] 1 gm PO TID 11/03/19 [History Confirmed 11/10/19] PMH/Surg Hx/FS Hx/Imm Hx Endocrine/Hematology History: Reports: Hx Diabetes - Type 1, Other Endocrine/ Hematological Disorders - pancreatitis, h/o necrotizing; DKA Denies: Hx Thyroid Disease Cardiovascular History: Reports: Hx Hypercholesterolemia Denies: Hx Congestive Heart Failure, Hx Hypertension Respiratory History: Denies: Hx Asthma, Hx Chronic Obstructive Pulmonary Disease (COPD) GI History: Reports: Hx Gastroesophageal Reflux Disease, Other GI Disorders - Pancreatitis - chronic, splenic necrosis Denies: Hx Ulcer History: Denies: Hx Dialysis, Hx Renal Disease Sensory History: Denies: Hx Cataracts, Hx Contacts or Glasses, Hx Eye Injury, Hx Eye Prosthesis, Hx Glaucoma, Hx Legally Blind, Hx Macular Degeneration, Hx Vision Problem, Hx Deafness, Hx Hearing Aid, Hx Hearing Problem, Other Sensory Impairments Opthamlomology History: Denies: Hx Cataracts, Hx Contacts or Glasses, Hx Eye Injury, Hx Eye Prosthesis, Hx Glaucoma, Hx Legally Blind, Hx Macular Degeneration, Hx Vision Problem, Other Sensory Impairments Neurological History: Denies: Hx Dementia, Hx Developmental Delay, Hx Headaches, Hx Migraine, Hx Nerve Disease, Hx Seizures, Hx Spinal Cord Injury, Hx Transient Ischemic Attacks (TIA), Other Neuro Impairments/Disorders Psychiatric History: Reports: Hx Depression, Hx Substance Abuse - ETOH - Surgical History Surgery Procedure, Year, and Place: Pancreas resection, 2015. Skin graft surgery Hx Anesthesia Reactions: No - Immunization History Date of Tetanus Vaccine: utd Date of Influenza Vaccine: fall 2016 Infectious Disease History: No Infectious Disease History: Reports: Hx Clostridium Difficile Denies: Hx Hepatitis, Hx Human Immunodeficiency Virus (HIV), Hx of Known/ Suspected MRSA, Hx Shingles, Hx Tuberculosis, Traveled Outside the [place] in Last 30 Days - Family History Known Family History: Positive: Other - brother high triglycerides (>1,000) - Social History Alcohol Use: Sober since 2002 Alcohol Amount: quit in 2002 Hx Substance Use: Yes Substance Use Type: Reports: Cocaine, Marijuana Substance Use Comment - Amount & Last Used: Marijuana used occasionally to increase appetite and treat pain Hx Tobacco Use: Yes Smoking Status (MU): Current Every Day Smoker Type: Cigarettes Amount Used/How Often: 1/2 ppd Have You Smoked in the Last Year: Yes Review of Systems Positive: Abdominal Pain Positive: Other - Suicidal ideation All Other Systems Reviewed And Are Negative: Yes Physical Exam - Summary Physical Exam Summary: General: Well appearing, no distress HEENT: PERRL Cardiovascular: Skin is well perfused Pulmonary: No respiratory distress, no tachypnea Abdomen: Mild epigastric tenderness. Skin: Warm, pink, dry MSK: No edema Psych: Normal affect Neuro: A&Ox3 Triage Information Reviewed: Yes Vital Signs On Initial Exam: Initial Vitals Temp Pulse Resp BP Pulse Ox 98.8 F 79 17 126/91 100 11/10/19 10:34 11/10/19 10:34 11/10/19 10:34 11/10/19 10:34 11/10/19 10:34 Vital Signs Reviewed: Yes Procedures - Procedure Summary Procedure Summary: US IV Ultrasound Guided Peripheral IV Procedure Note Indication: Unable to obtain adequate IV access Skin Prep:Chlorhexidine Sterile Prep (allowed to dry for thirty seconds) Sterility: Gloves Insertion: Appropriate time out was taken. Ultrasound guidance was utilized for vein selection, to document selected vessel patency and real time ultrasound visualization of vascular needle entry into venous lumen. Insertion Site: L forearm Type of catheter: 20 gauge catheter Blood return:yes Saline lock: yes Post Procedure: Estimated blood loss: minimal - Sedation Patient Received Moderate/Deep Sedation with Procedure: No Diagnostics - Vital Signs Vital Signs Temp Pulse Resp BP Pulse Ox 11/10/19 10:34 98.8 F 79 17 126/91 100 - Laboratory Result Diagrams: 11/10/19 11:27 11/10/19 11:27 Lab Statement: Any lab studies that have been ordered have been reviewed, and results considered in the medical decision making process. Re-Evaluation - Re-Evaluation First Eval Re-Evaluation Time: 14:50 Comment: The patient will be admitted by Dr. Gutierrez. Course/Dx - Course Course Of Treatment: Patient presenting for mental health clearance. Patient has no active medical conditions warrantly further w/u, vital signs are stable. Patient has history of chronic abdominal pain, no new symptoms, chronically abnormal LFTs and alkaline phosphatase. Patient placed in mental health gown and placed on observation. We'll obtain mental health evaluation. - Differential Dx/Clinical Impression Provider Diagnosis: Depression Discharge ED - Sign-Out/Discharge Documenting (check all that apply): Patient Departure - Discharge Plan Condition: Stable Disposition: ADMITTED TO [facility] Referrals: Azael Olvera MD [Primary Care Provider] - - Billing Disposition and Condition Condition: STABLE Disposition: Admitted to [facility] - Attestation Statements Document Initiated by Scribe: Yes Documenting Scribe: Melia Jovel Provider For Whom Andra is Documenting (Include Credential): Ekta Calderon MD Scribe Attestation: Melia Garcia, [email or web address] for Ekta Calderon MD on 11/10/19 at 1514. Scribe Documentation Reviewed: Yes Provider Attestation: The documentation as recorded by the Melia miller accurately reflects the service I personally performed and the decisions made by Ekta stein MD Status of Scribe Document: Viewed
[2019-11-10 11:43] LABS: ABS Basophils 0.1 10^3/ul (0-0.2); ABS Eosinophils 0.1 10^3/ul (0-0.6); ABS Lymphocytes 1.4 10^3/ul (1.0-4.8); ABS Monocytes 0.8 10^3/ul (0-0.8); ABS Neutrophils 7.9 10^3/ul (1.5-7.7); Eosinophil % 0.6 %; Hematocrit 45 % (42-52); Hemoglobin 15.4 g/dL (14.0-18.0); Lymphocyte % 13.3 %; Mean Corpuscular HGB Conc 34 g/dL (31-36); Mean Corpuscular Hemoglobin 34 pg (27-31); Mean Corpuscular Volume 101 fL (80-94); Mean Platelet Volume 9.3 fL (7.4-10.4); Platelet Count 377 10^3/uL (150-450); Red Blood Count 4.52 10^6 /uL (4.18-5.48); Red Cell Distribution Width 14 % (10-15); White Blood Count 10.2 10^3/uL (3.5-10.8)
[2019-11-10 12:09] LABS: ALT 276 U/L (7-52); AST 125 U/L (13-39); Albumin 4.3 g/dL (3.2-5.2); Albumin/Globulin Ratio 1.2 (1-3); Alkaline Phosphatase 1060 U/L (34-104); Anion Gap 9 mmol/L (2-11); Blood Urea Nitrogen 17 mg/dL (6-24); CO2 Carbon Dioxide 25 mmol/L (22-32); Calcium 9.9 mg/dL (8.6-10.3); Chloride 96 mmol/L (101-111); EGFR Non-African American 127.3 (>60); Globulin 3.5 g/dL (2-4); Glucose 305 mg/dL (70-100); Potassium 3.9 mmol/L (3.5-5.0); Sodium 130 mmol/L (135-145); Total Protein 7.8 g/dL (6.4-8.9)
[2019-11-10 12:15] LABS: Acetaminophen < 15 mcg/mL; Alcohol < 10 mg/dL (<10); Salicylate < 2.50 mg/dL (<30)
[2019-11-10 12:30] LABS: TSH (Thyroid Stimulating Horm) 0.54 mcIU/mL (0.34-5.60)
[2019-11-10 12:42] LABS: Urine Appearance Cloudy; Urine Bilirubin Negative (Negative); Urine Blood Negative (Negative); Urine Color Amber; Urine Glucose 3+(>=500 mg/dL) (Negative); Urine Ketones Negative (Negative); Urine Nitrite Negative (Negative); Urine Protein 2+(100 mg/dL) (Negative); Urine Specific Gravity 1.033 (1.010-1.030); Urine Urobilinogen Negative (Negative)
[2019-11-10 12:45] LABS: Urine Bacteria Absent (Absent); Urine Red Blood Cell 3+(>10/hpf) (Absent); Urine White Blood Cell 2+(11-20/hpf) (Absent)
[2019-11-10 12:51] LABS: Urine Benzodiazepine Screen None Detected (None Detect); Urine Opiates Screen None Detected (None Detect)
[2019-11-10] MEDS ORDERED: LORazepam TAB(*) 1 MG PO PRN (14:06)
[2019-11-10] MEDS ORDERED: chlorproMAZINE TAB* 100 MG PO PRN (14:06)
[2019-11-10] MEDS ORDERED: Dextrose 50% Syringe 50 ML* 25 GM/50 ML SYRINGE IV PUSH PRN (20:18)
[2019-11-10] MEDS ORDERED: Insulin LISPRO* 1 UNITS UNIT SUBCUT ONE (20:20)
[2019-11-10 21:19] LABS: Troponin I 0.02 ng/mL (<0.03)
--- NOTE | 2019-11-10 23:06 | CONS ---
CONSULTATION REPORT: DATE OF CONSULT: 11/10/19 REQUESTING PROVIDER: Dr. Bautista. REASON FOR CONSULT: General medical management. HISTORY OF PRESENT ILLNESS: This is a 44-year-old male with a past medical history significant for diabetes type 1 and chronic pancreatitis, who came to the emergency room on 11/10/19, for reports of suicide ideations since trying to overdose on cocaine the previous day. In the emergency room, labs were drawn. EKG was done. He received a mental health evaluation and then was admitted to the behavioral services unit for further assistance, and the hospitalists were asked to consult the patient for general medical management particularly with regards to his chronic pancreatitis and diabetes type 1. This HPI was limited as the patient would not allow for any contact or interview. Information was gathered through chart review. 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 PAST SURGICAL HISTORY: He had a pancreatic resection in 2014 and skin graft surgery. MEDICATIONS: 1. Gemfibrozil 600 mg p.o. b.i.d. 2. Gabapentin 300 mg p.o. t.i.d. 3. Cholecalciferol 5000 units p.o. weekly. 4. Insulin, glargine 25 units subcu q.p.m. 5. Insulin, glargine 60 units subcu q.a.m. 6. Ursodiol 300 mg p.o. t.i.d. 7. Calcium carbonate/vitamin D3 of 500 mg p.o. daily. 8. Insulin, aspart 10 units subcu t.i.d. a.c. 9. Nicotine 10 mg both nares q.2 hours p.r.n. 10. Pancrelipase 36,000 units p.o. t.i.d. with meals. 11. Sucralfate 1 g p.o. t.i.d. ALLERGIES: No known drug allergies. FAMILY HISTORY: Significant for hyperlipidemia with his brother. SOCIAL HISTORY: He reportedly has not had any alcohol since 2002; however, he does use cocaine and marihuana, on which frequency I am unsure. His drug screen in the emergency room was positive for both. The ED report states that he uses his marijuana to increase his appetite and pain control, and is a current half pack a day smoker. REVIEW OF SYSTEMS: Unable to obtain, as the patient was unwilling to be interviewed. PHYSICAL EXAMINATION: Vital Signs: 99.2 Fahrenheit, 78 pulse, 16 respirations , 99% oxygen on room air, and 129/90 blood pressure. General: This is a chronically ill-appearing disheveled gentleman seen pacing around the unit; however, unable to obtain any further physical examination as the patient refused. DIAGNOSTIC STUDIES/LAB DATA: Diagnostic studies: None. Pertinent lab data: WBC is 10.2, hemoglobin 15.4, hematocrit 45, MCV is 101, MCH 34. Sodium 130, chloride 96, BUN/creatinine ratio 25.0, glucose 407. Total bilirubin 2.70, AST 125, ALT 276, alkaline phosphatase 1060. TSH is 0.54. ASSESSMENT AND PLAN: 1. Suicidal ideation with attempted substance overdose. Management would be as per Psych. 2. Diabetes type 1. This is a surgically-induced diabetes secondary to a pancreatic resection. His last hemoglobin A1c was drawn on 08/11/19, and it was 15.8%. We are awaiting hemoglobin A1c, which will be drawn in the a.m. I will continue his insulin glargine as well as lispro with fingersticks a.c. and h.s. A one time dose of 10 units of lispro insulin was ordered for [facility] to cover for his 407 blood sugar. He is to have a consistent carb low-fat diet. 3. Chronic pancreatitis. This is as evidenced by chronically high AST, ALT, and bilirubin, and alkaline phosphatase; however, I did note a trend over the past 2 months of steadily rising liver enzymes. I suspect either a acute on chronic pancreatitis or primary sclerosing cholangitis. Ordered an liver ultrasound if the patient will agree to this. Check AMA in am. Continue his ursodiol and Creon. 4. Suspected possible adrenal insufficiency. This is as evidenced by a history of chronic pancreatitis and chronic abdominal pain, anorexia, though lacks hypotension, I will add on a cortisol lab to the a.m. labs. He also has marked depression with the recent history of suicide attempt. This may have been exacerbated by a possible adrenal insufficiency. 5. Abnormal EKG. EKG showed mild ST elevation in V1-V2 not present in previous EKG's. This is likely secondary to recent cocaine use. Trop was 0.02, patient refused subsequent troponin checks or interventions. Had not reported chest pain to staff. 5. Hypercholesterolemia. Continue the gemfibrozil. 6. Gastroesophageal reflux disease. Continue his sucralfate. 7. Chronic pain. Continue gabapentin. Please obtain records from his pain clinic, so that we may reorder his proper medication. 8. DVT prophylaxis: Encourage ambulation. 9. Code status is full code. 10. Disposition: Admit the patient to the behavioral services unit. 11. Condition is guarded. TIME SPENT: Time spent on the patient is about 40 minutes with none of that spent [id number], as the patient would not allow for this. [id number]/CPS #: [id number] MTDD
[2019-11-10] MEDS: Ursodiol CAP* 300 MG PO SCH (23:20)
[2019-11-10] MEDS: Gabapentin CAP(*) 300 MG PO SCH (23:20)
[2019-11-10] MEDS: Insulin GLARGINE(*) 1 UNITS UNIT SUBCUT SCH (23:20)
[2019-11-10] MEDS: Gemfibrozil TAB* 600 MG PO SCH ×2 (23:20→23:21)
[2019-11-11] MEDS ORDERED: Cholecalciferol TAB* 1000 UNITS PO SCH (09:00)
[2019-11-11] MEDS: Gemfibrozil TAB* 600 MG PO SCH ×2 (13:44→21:33)
[2019-11-11] MEDS: Insulin LISPRO* 1 UNITS UNIT SUBCUT SCH ×3 (13:44→21:34)
[2019-11-11] MEDS: PANCRELIPASE 36000 UNIT PO SCH ×2 (13:45→21:34)
[2019-11-11] MEDS: Sucralfate TAB* 1 GM PO SCH ×2 (13:45→21:34)
[2019-11-11] MEDS: Calcium/Vitamin D TAB 250/125* TAB PO SCH (13:45)
[2019-11-11] MEDS: Gabapentin CAP(*) 300 MG PO SCH ×3 (13:45→21:35)
[2019-11-11] MEDS: Insulin GLARGINE(*) 1 UNITS UNIT SUBCUT SCH ×2 (13:45→21:34)
[2019-11-11] MEDS: Ursodiol CAP* 300 MG PO SCH ×3 (13:45→21:35)
[2019-11-11] MEDS ORDERED: Nicotine* 4MG (FRUIT FLAVOR) GUM PO PRN (14:05)
[2019-11-11] MEDS ORDERED: LORazepam TAB(*) 1 MG PO PRN (15:19)
--- NOTE | 2019-11-11 16:34 | PN ---
Hospitalist Progress Note Date of Service: 11/11/19 Hospitalist consult follow up Discussed with Maryam Verde, Psychiatry [facility]. Maryam tells me that Dr. Chandana Ibarra of the GI service has recommended MRCP for this patient, and it has been ordered for tomorrow. Patient has been refusing medical care and requesting to leave the [facility]. Patient expresses this during my evaluation as well. Patient is involuntarily admitted due to suicidal ideation. Patient has abdominal pain today but he has chronic abdominal pain. He tells me it is no different from his usual chronic abdominal pain. He denies chest pain, difficulty breathing, fever/chills, nausea, vomiting. Physical Exam: General: white male who appears older than stated age, laying in bed on [facility], appearing comfortable and in NAD Resp: not using accessory muscles with respirations, not tachypneic, declines auscultation Cardio: declines exam Abd: declines exam - no overt distension Neuro: patient awakens easily from sleep, is alert and oriented x 3, able to move all extremities A&P: Ryder Chinchilla is a 44 yo white male with PMHx significant for Diabetes mellitus type 2 since 2001 who is insulin deficient since partial pancreatectomy in 2014. Admitted to the [facility] for suicidal ideation and attempted cocaine overdose. Hospital medicine has been consulted for co-mgmt of chronic medical conditions. 1) DMT2: his BGs have been uncontrolled but he has been declining his insulin. At this point, continuing his current insulin as ordered is appropriate until we have more data based on his BGs while receiving insulin therapy. Please encourage receiving insulin administration. He follows with Dr. Jade outpatient and should follow up after discharge from [facility]. 2) Transaminitis, hyperbilirubinemia: Patient has chronic abdominal pain and he tells me it is unchanged from his baseline. He has an elevated bili which has downtrended since it was last drawn a week ago, and his AST as downtrended from one week ago as well. ALT is minimally up. I doubt an [id number] pancreatitis but we also do not have a lipase. I will attempt to trend his LFTs and order a lipase, but patient has been refusing labs. I will cancel the cortisol as this presentation is not consistent with adrenal insufficiency considering he is normotensive. Per Maryam Verde's discussion with Dr. Chandana Ibarra, an MRCP is ordered for tomorrow and we can follow. Dr. Naranjo was supposed to see patient outpatient today. US liver was performed already outpatient and was not revealing, therefore not needed at this point. Ordering an acute hepatitis panel, PT, PTT, indirect/direct bili. Pancreatic duct stricture and malignancy are on the differential as well. If patient continues to decline MRCP during this admission, please notify Dr. Naranjo when patient is discharged from [facility] for outpatient coordination. 3) Dyslipidemia: continue gemfibrozil 4) Suicidal ideation: mgmt per primary psychiatry team Regarding his EKG, I do not believe there are any changes. There are some repolarization changes in the QRS of V2 which are not customer loyalty representative of ST elevations. No concern for ACS and no need to repeat at this time unless symptomatic.
--- NOTE | 2019-11-11 16:55 | HP ---
HISTORY AND PHYSICAL: DATE OF ADMISSION: 11/10/19 PRIMARY CARE PHYSICIAN: Dr. Azael Olvera. CARDIOLOGY NURSE PRACTITIONER: Dr. Naranjo. SUPERVISING PSYCHIATRIST: Dr. Elroy Otero* (dictated by ABIGAIL Daly) . JUSTIFICATION FOR ADMISSION: The patient presented to the emergency department with suicidal ideation and a recent overdose attempt on cocaine. The patient merits hospitalization for immediate safety and stabilization. CHIEF COMPLAINT: "I am sick." HISTORY OF PRESENT ILLNESS: Ryder is a 44-year-old white male, , has been living alone since Sunday. He has a history of multiple medical comorbidities. He presented to the emergency department on 11/10/19 due to suicidal ideation and recent attempt at suicide via cocaine. The patient is irritable and uncooperative. Most of the following is obtained through electronic medical records. The patient presented to the emergency department, the day after he and his 's wedding anniversary. His said that he has been having a hard time lately because of his medical complications and that he was upset that he could not do anything for her on their anniversary. He left that day at 6 p.m. and she had not heard anything about him until she received a call from the ED. 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 I am tired of being a burden to my family, I am sick and not getting better, my health is not getting better. I am not crazy, I just want to ." He denies a history of anxiety, mood or psychotic disorder. He is irritable and agitated and met criteria for involuntary admission. Hospitalist consult was placed by admitting psychiatrist due to the elevated glucose level. The patient was seen by hospitalist, CERAMICS ENGINEER, Emily No. He had gotten labs done in the ED. He has poor venous access; therefore, ultrasound was needed to establish phlebotomy. An EKG was done upon arrival to the mental health unit. The patient was minimally cooperative with hospitalist. Today, upon presentation, the patient is considerably irritable and edgy. He reports "I am sick" and when I asked for further information, he is evasive. I explained my role in his care and he states "my head is fine." He states that he cannot talk to anyone about his feeling and that is partly why he has gotten to the mental state that he is in. He states that he cannot talk to his . He left their home on Sunday and has been living alone. He would not disclose where. He states he left his because he does not deserve her and she does not deserve to always be upset by him. The patient asks about status of admission and he is informed that he was admitted on an involuntary basis. This is increasingly agitating to him. He demands to be let out immediately. Therapeutic communication with myself and social economist were attempted. The patient demanded that we leave his room. I received a call from inspector filter tip, Dr. Naranjo who was expecting to see him on an outpatient visit today. She recommended that he have a cholangiogram, MRCP due to increased LFTs and bilirubin. The patient is to be n.p.o. after midnight to have that study done tomorrow morning. The patient has been refusing medications, fingersticks or any medical treatment today. PAST PSYCHIATRIC HISTORY: The patient denies a history of outpatient mental health or any mental health treatment. He denies ever meeting with a counselor or psychiatrist. Due to the brevity of the interview, I do not know if there are previous attempts, violence, access to weapons, or trauma. 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 PAST SURGICAL HISTORY: Pancreatic resection in 2015 and skin graft surgery. MEDICATIONS: 1. Gemfibrozil 600 mg p.o. b.i.d. 2. Gabapentin 300 mg p.o. t.i.d. 3. Cholecalciferol 5000 units p.o. weekly. 4. Insulin, glargine 25 units subcu q.p.m. 5. Insulin, glargine 60 units subcutaneous q.a.m. 6. Ursodiol 300 mg p.o. t.i.d. 7. Calcium carbonate/vitamin D3 of 500 mg p.o. daily. 8. Insulin lispro 10 units subcu t.i.d. before meals. 9. Nicotine 10 mg both nares q.2 hours p.r.n. 10. Pancrelipase 36,000 units p.o. t.i.d. with meals. 11. Sucralfate 1 g p.o. t.i.d. ALLERGIES: No known drug allergies. FAMILY PSYCHIATRIC HISTORY: Unable to obtain. SOCIAL HISTORY: Limited due to the patient's refusal to engage. He is . He reports he does not have income. 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 He smokes half pack a day x30 years. The patient reports a history of alcohol use but none since 2002. He is using marijuana daily for appetite and pain control and obviously recently had cocaine. REVIEW OF SYSTEMS: Constitutional: Negative. No fever, chills, or fatigue. ENT: Negative. Cardiovascular: Negative. Denies chest pain or palpitations. Respiratory: Negative. Denies shortness of breath or cough. Genitourinary: Positive for chronic abdominal pain. Musculoskeletal: Negative. Neurological : Negative. PHYSICAL EXAMINATION GENERAL: The patient is thin-framed and poorly nourished. He is disheveled, unkempt. VITAL SIGNS: The patient has been refusing vital signs today. Most recent vital signs from the ED on 11/10/19 at 1730, temp of 99.2, P 78, respiration rate 16, O2 sat 99%, BP 129/90. HEENT: Head and face: The patient noted to have a keloid on his right eyebrow and a large triangle on his forehead that looks to be skin grafting. Eyes: Positive EOMI. Conjunctivae clear. NECK: Supple. Full ROM. Trachea midline. RESPIRATORY: No respiratory distress. No tachypnea. CARDIOVASCULAR: Well-perfused. ABDOMEN: Reports pain, will not allow auscultation. MUSCULOSKELETAL: No edema noted. The patient has normal gait. SKIN: Warm, dry. Color reflects adequate perfusion. DIAGNOSTIC STUDIES/LAB DATA: CBC with MCV 101, MCH 34, absolute neutrophils 7.9. Chemistry: Sodium 130, chloride 96, BUN/creatinine ratio 25.0, glucose 305 , most recent fingersticks was 444 and the patient refused blood draw per protocol. Bilirubin 2.70, AST 125, ALT 276, alkaline phosphatase 1016. Troponin negative. TSH normal at 0.54. Urinalysis 2+ wbc's, 3+ rbc's, 2+ protein, hyaline cast present, glucose 3+. Micro report negative. Toxicology positive for cocaine and cannabinoids. MENTAL STATUS EXAM: The patient is a 44-year-old white male, thin-framed, disheveled, poorly groomed with long fernandes and unkempt hair. He is casually dressed in donated clothing. He is initially lying down on the bed, awake. He is irritable and uncooperative with interview. He is alert and oriented x3. Eye contact is poor. Speech is loud at times, articulate, and spontaneous. Concentration poor. Memory 3/3. Mood is irritable with restricted affect. No abnormal psychomotor activity noted. Thought process is circumstantial, impoverished. Thought content is positive for passive wish. He endorsed suicidal ideation yesterday. He denies auditory or visual hallucinations. Insight and judgment are impaired. He appears to have an average intellect. His fund of knowledge is limited. DIAGNOSES: 1. Cocaine induced mood disorder. 2. 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 3. Pancreatitis. 4. Surgically induced diabetes mellitus. 5. Chronic abdominal pain. 6. Gastroesophageal reflux disease. 7. Hypercholesterolemia. 8. Rule out major depressive disorder. ASSESSMENT: Ryder is a 44-year-old white male with no known psychiatric history, who presented to the ED, due to suicidal ideation and a recent overdose attempt via cocaine. Since admission to the hospital, he has been minimally cooperative with psychiatric or medical treatments. We have been in contact with Gastroenterology and hospitalist service to assist in his ongoing medical care. We appreciate their involvement. PLAN: The patient is admitted to the adult behavioral services unit on involuntary status. Code status is full. He is placed on 15-minute checks for his safety. He has been encouraged to participate in supportive milieu, individual sessions with staff and psychoeducational groups. We have restarted outpatient medications with the addition of nicotine replacement and lorazepam 1 mg p.r.n. anxiety agitation. Hospitalist services adjusted his insulin doses and will continue to follow. Estimated length of stay is 1 week. Discharge planning will include family involvement per the patient's consent and referral to outpatient providers. ABIGAIL DALY [id number]/[facility] #: [id number] JARAD
[2019-11-11] MEDS: Nicotine Patch Removal NOTE FOLLOW UP SCH (19:13)
[2019-11-11] MEDS: Nicotine PATCH 21 MG/24 HR* PATCH TRANSDERM SCH (21:33)
[2019-11-12] MEDS: Gemfibrozil TAB* 600 MG PO SCH ×2 (07:28→16:32)
[2019-11-12] MEDS: Insulin LISPRO* 1 UNITS UNIT SUBCUT SCH ×3 (07:28→16:32)
[2019-11-12] MEDS: Sucralfate TAB* 1 GM PO SCH ×3 (07:29→16:32)
[2019-11-12] MEDS: Nicotine PATCH 21 MG/24 HR* PATCH TRANSDERM SCH (07:39)
[2019-11-12] MEDS: PANCRELIPASE 36000 UNIT PO SCH ×3 (07:40→16:33)
[2019-11-12] MEDS: Ursodiol CAP* 300 MG PO SCH ×3 (09:06→21:39)
[2019-11-12] MEDS: Gabapentin CAP(*) 300 MG PO SCH ×3 (09:06→21:39)
[2019-11-12] MEDS: Insulin GLARGINE(*) 1 UNITS UNIT SUBCUT SCH ×2 (09:06→18:24)
[2019-11-12] MEDS: Calcium/Vitamin D TAB 250/125* TAB PO SCH (09:06)
--- NOTE | 2019-11-12 10:18 | PN ---
Subjective - Subjective Date of Service: 11/12/19 Subjective: Patient continues to refuse any medical interventions. He reported to staff intent to suicide after discharge. Upon approach, patient sitting up in bed and eating pretzels. He is politely dismissive. He states he is going to " just wait my 15 days" until being discharged. Regional Owner Operator Truck Driver and SW expressed empathy and desire to be of help. He states "there is nothing anyone can do. I don't deserve to live." Objective - General Observations Appearance: Unkempt Stature: Thin Posture: Slumped Eye Contact: Average Behavior/Activity: Slowed - Interaction Observations Attitude Towards Examiner: Evasive, Dismissive Stated Mood: Dysphoric Affect: Flat Speech Pattern/Tone: Quiet Volume Thought Process: Impoverished Thought Content: Depressive, Self-Deprecatory Thought Process: Lethality: Suicidal Planning Hallucination Type: Denies Delusion Type: Denies - Cognitive Function Orientation: A&O x 4 Level of Consciousness: Alert Cognition: Impaired Attention/Concentration Estimated Intelligence: Normal Insight: Difficulty Acknowledging Presence of Psyciatric Problems Judgment Within Normal Limits: No Ability to Make Reasonable Decisions: Serverely Impaired - Medication Compliance Cooperative with Inpatient Medication Regimen: No - Group Participation Participates in Group Activities: No Assessment - Assessment Merits Inpatient Hospitalization: For Immediate Safety, For Stabilization Inpatient DSM-V Dx: F43.25 Clinical Impression: 44yo wm, , domiciled, unemployed, with multiple medical comorbidities who presented to ED voluntarily due to suicidal ideation and a recent suicide attempt via cocaine. Since admission to the [facility], he has been refusing medical and psychiatric treatment. He merits hospitalization for immediate safety and stabilization. Plan - Plan Treatment Plan: Name: THONG GU Birthdate: 1975 [id number] continue acute intensive psychiatric treatment. continue current medications, as ordered. collaboration with . consider treatment over objection if no improvement. Continued Medication Management: Consider Medication Medications: Current Medications Calcium/Vitamin D (Oscal D Tab 250/125*) 1 tab PO DAILY [facility] Last Admin: 11/12/19 09:06 Dose: Not Given Chlorpromazine HCl (Thorazine Tab*) 100 mg PO Q6H PRN PRN Reason: AGITATION Cholecalciferol (Vitamin D Tab*) 5,000 units PO WEEKLY [facility] Dextrose (D50w Syringe 50 Ml*) 12.5 gm IV PUSH .FOR FS < 60 - SS PRN PRN Reason: FS < 60 Gabapentin (Neurontin Cap(*)) 300 mg PO TID [facility] Last Admin: 11/12/19 09:06 Dose: Not Given Gemfibrozil (Lopid Tab*) 600 mg PO BID [facility] Last Admin: 11/12/19 07:28 Dose: Not Given Insulin Glargine (Lantus(*)) 25 units SUBCUT QPM [facility] Last Admin: 11/11/19 21:34 Dose: Not Given Insulin Glargine (Lantus(*)) 60 units SUBCUT QAM [facility] Last Admin: 11/12/19 09:06 Dose: Not Given Insulin Human Lispro (Humalog*) 10 units SUBCUT [facility] Last Admin: 11/12/19 07:28 Dose: Not Given Lorazepam (Ativan Tab(*)) 1 mg PO Q6H PRN PRN Reason: Anxiety/agitation Nicotine (Nicotine Patch 21 Mg/24 Hr*) 1 patch TRANSDERM DAILY@0800 [facility] Last Admin: 11/12/19 07:39 Dose: Not Given Nicotine Polacrilex (Nicotine Gum*) 4 mg PO Q2H PRN PRN Reason: CRAVING Pancrelipase (Creon (Nf)) 36,000 units PO TID WITH MEALS [facility] Last Admin: 11/12/19 07:40 Dose: Not Given Pharmacy Profile Note (Nicotine Patch Removal Note*) 1 note FOLLOW UP 2100 [facility] Last Admin: 11/11/19 19:13 Dose: Not Given Sucralfate (Carafate*) 1 gm PO TID [facility] Last Admin: 11/12/19 07:29 Dose: Not Given Ursodiol (Actigall Cap*) 300 mg PO TID [facility] Last Admin: 11/12/19 09:06 Dose: Not Given - Discharge Plan Discharge Plan: Inpatient Hospitalization
[2019-11-12] MEDS: Nicotine Patch Removal NOTE FOLLOW UP SCH (19:03)
[2019-11-13] MEDS: PANCRELIPASE 36000 UNIT PO SCH ×2 (08:31→13:24)
[2019-11-13] MEDS: Ursodiol CAP* 300 MG PO SCH ×3 (08:31→22:11)
[2019-11-13] MEDS: Gabapentin CAP(*) 300 MG PO SCH ×3 (08:31→20:59)
[2019-11-13] MEDS: Sucralfate TAB* 1 GM PO SCH ×4 (08:31→18:02)
[2019-11-13] MEDS: Calcium/Vitamin D TAB 250/125* TAB PO SCH (08:31)
[2019-11-13] MEDS: Gemfibrozil TAB* 600 MG PO SCH ×3 (08:31→18:02)
[2019-11-13] MEDS: Insulin LISPRO* 1 UNITS UNIT SUBCUT SCH ×3 (08:37→18:03)
[2019-11-13] MEDS: Nicotine PATCH 21 MG/24 HR* PATCH TRANSDERM SCH (08:37)
[2019-11-13] MEDS: Insulin GLARGINE(*) 1 UNITS UNIT SUBCUT SCH ×2 (08:37→18:02)
[2019-11-13 10:05] LABS: Activated Partial Thrombo Time 32.2 seconds (26.0-38.0); INR 1.02 (0.82-1.09)
[2019-11-13 10:13] LABS: ALT 317 U/L (7-52); Albumin 3.9 g/dL (3.2-5.2); Albumin/Globulin Ratio 1.2 (1-3); Alkaline Phosphatase 1178 U/L (34-104); Globulin 3.2 g/dL (2-4); Total Protein 7.1 g/dL (6.4-8.9)
[2019-11-13 10:14] LABS: AST 184 U/L (13-39); Indirect Bilirubin 3.9 mg/dL (0.3-1.0)
[2019-11-13 10:18] LABS: Troponin I 0.03 ng/mL (<0.03)
[2019-11-13] MEDS ORDERED: HYDROmorphone TAB* 2 MG PO ONE (10:32)
[2019-11-13 11:10] LABS: Hepatitis B Surface Antigen Nonreactive (Nonreactive)
[2019-11-13 11:27] LABS: Hepatitis C Antibody Negative (Negative)
[2019-11-13 11:48] LABS: Amylase 21 U/L (29-103); CO2 Carbon Dioxide 19 mmol/L (22-32); Calcium 9.5 mg/dL (8.6-10.3); Chloride 89 mmol/L (101-111); Sodium 127 mmol/L (135-145)
[2019-11-13 11:54] LABS: BUN/Creatinine Ratio 26.2 (8-20); Blood Urea Nitrogen 22 mg/dL (6-24); EGFR African American 120.7 (>60); EGFR Non-African American 99.7 (>60)
[2019-11-13 12:04] LABS: Glucose 578 mg/dL (70-100)
[2019-11-13 12:11] LABS: Anion Gap 19 mmol/L (2-11); Potassium 4.1 mmol/L (3.5-5.0)
[2019-11-13 14:05] LABS: Troponin I 0.04 ng/mL (<0.03)
[2019-11-13] MEDS: NS 0.9% 1000 ML** 1,000 ML IV SCH (14:38)
[2019-11-13] MEDS: Ketorolac INJ* 30 MG/ML 1 ML VIAL IV PUSH PRN ×2 (14:56→22:10)
--- NOTE | 2019-11-13 14:56 | CONS ---
CC: Dr. Azael Olvera; Dr. Haley Naranjo CONSULTATION REPORT: DATE OF CONSULT: 11/13/19 PRIMARY CARE PHYSICIAN: Dr. Azael Olvera. OUTPATIENT TREAD CUTTER: Dr. Haley Naranjo. NARRATIVE: Mr. Chinchilla is a 44-year-old gentleman with a history of diabetes, chronic pancreatitis, r ecent suicide attempt, who was admitted to the mental health unit for a recent suicide attempt. He h as been cleared from that standpoint and was now transferred to the medical unit for further manageme nt of his pancreatitis. He tells me that he continues to have the same abdominal pain that he always has, is located throughout the entirety of the abdomen, made worse by eating. He always has a baseli ne level. He does have a history of pancreatitis likely secondary to alcohol abuse. He does have a history of necrotizing pancreatitis and pseudocyst formation. Currently, he states that his pain is at his normal baseline. PAST MEDICAL HISTORY: Please see the HPI. In addition, high triglycerides. PAST SURGICAL HISTORY: Includes necrotic pancreatic resection approximately 5 years ago, skin graft surgery. MEDICATIONS: Upon admission include: 1. Carafate. 2. Pancrelipase. 3. Nicotine. 4. Insulin. 5. Ursodiol. 6. Gabapentin. 7. Gemfibrozil. ALLERGIES: None. FAMILY HISTORY: Significant for hypertriglyceridemia, coronary artery disease, diabetes. SOCIAL HISTORY: He has 3 children. He continues to smoke tobacco, I counseled him against this. He quit alcohol approximately 6 years ago. He does smoke marijuana. REVIEW OF SYSTEMS: Twelve systems were reviewed, other than that mentioned in the HPI were unremarka ble. PHYSICAL EXAM: Temperature is 98.1, blood pressure is 121/82, pulse is 80, respiratory rate of 16, O 2 sat is 97%. General: Chronically ill-appearing thin male, lying flat in bed, talking on the phone with his . HEENT: Mucous membranes are moist. Dentition is poor. Heart: Regular rate and rh ythm. Lungs: Clear to auscultation. Skin: Warm and dry. Multiple tattoos. Abdomen: Positive bow el sounds, diffusely tender throughout. No rebound. No guarding. DIAGNOSTIC STUDIES/LAB DATA: Labs: Of note, white count is 10.2, hemoglobin is 15.4, platelet count of 377. INR is 1.02, BUN is 22, creatinine is 0.84. His glucose is 578, bilirubin is 10 with a dir ect of 6.1, AST is 184, ALT is 317, alk phos is 117, amylase is 21. He does have a gallbladder ultrasound from 10/19/19, which showed intrahepatic biliary ductal dilatat ion, mildly dilated common bile duct, hepatic steatosis. ASSESSMENT AND PLAN: This is a 44-year-old gentleman with chronic pancreatitis due to alcohol, who w as recently discharged from the mental health unit after a suicide attempt. He does have increasing LFTs. Plan is to obtain MRCP to rule out any choledocholithiasis or other structural abnormalities. We will follow up with the results of that. He also will need outpatient treatment for his chronic pancreatitis and GI will continue to follow along. [id number]/[facility] #: [id number]
--- NOTE | 2019-11-13 14:58 | PN ---
Subjective - Subjective Date of Service: 11/13/19 Service Type: [id number] Hosp care 35 min high complexity Subjective: Per nursing staff, patient lethargic and jaundiced this morning. He consented to AM meds, blood draws and EKG. Noted to have drastically elevated LFTs, bilirubin and troponin of 0.3. Hospitalist service contacted and patient deemed appropriate for transfer to telemetry. He accepted offer of one time dose of dilaudid PO. He refused to be NPO for choleangiogram. He requested a popsicle and reported this to be extremely helpful for GI distress. Upon approach, patient willing to engage in conversation with teletypewriter installer. Patient was agreeable to transfer to telemetry. He was notified that he will be on 1:1 due to suicide and elopement risk. He was tearful and endorses hopelessness, worthlessness, guilt and shame. He makes statements about being a coward in that he wasn't able to complete suicide and frustration that his body won't let him . He states that his and family do not deserve to suffer due to him. He also states sadness that his family would suffer if he suicided. He endorses chronic pain causing mental anguish. He states that he believes in karma and that his medical illness are due to such. Solar Technician inquires if he has a medical MJ card. He states his jail officer will not allow such. Therefore , he utilizes K2 and opana off the street to help with pain, appetite and anxiety. He denies IVDU and states he is assumed to do so by medical providers. Patient states he has been on parole since 2002 and is often violated. He is hopeful to complete parole this March. He gives informed consent to start mirtazapine for depression along with benefit of increased appetite and sleep. Objective - General Observations Appearance: Unkempt Stature: Thin Posture: Slumped Eye Contact: Average Behavior/Activity: Slowed - Interaction Observations Attitude Towards Examiner: Cooperative Stated Mood: Dysphoric Affect: Restricted - tearful at times, congruent to topic of conversation Speech Pattern/Tone: Appropriate, Quiet Volume Thought Process: Circumstantial, Impoverished Perception: WNL Thought Content: Depressive, Self-Deprecatory Thought Process: Lethality: Passive Wish, Suicidal Planning Hallucination Type: Denies Delusion Type: Denies - Cognitive Function Orientation: A&O x 4 Level of Consciousness: Alert Cognition: Impaired Attention/Concentration Estimated Intelligence: Normal Insight: Difficulty Acknowledging Presence of Psyciatric Problems Judgment Within Normal Limits: No Ability to Make Reasonable Decisions: Serverely Impaired - Medication Compliance Cooperative with Inpatient Medication Regimen: Yes - Group Participation Participates in Group Activities: No Assessment - Assessment Merits Inpatient Hospitalization: For Immediate Safety, For Stabilization Inpatient DSM-V Dx: F43.25 Clinical Impression: 44yo wm, , domiciled, unemployed, with multiple medical comorbidities who presented to ED voluntarily due to suicidal ideation and a recent suicide attempt via cocaine. At beginning of admission to the [facility], he was refusing medical and psychiatric treatment. He accepted blood work on AM of 11/12 and noted to have elevated troponin and LFTs, bilirubin. He was transferred to telemetry. Psychiatry will remain involved until he is medically stable to return to [facility]. He merits hospitalization for immediate safety and stabilization. Plan - Plan Treatment Plan: Name: THONG GU Birthdate: 1975 [id number] transfer to telemetry with 1:1 due to suicidal and elopement precautions. psychiatry will remain involved until patient is medically stable to return to [facility]. add mirtazapine 15mg QHS. continue other medications, as ordered. Continued Medication Management: Start Medication Medications: Current Medications Calcium/Vitamin D (Oscal D Tab 250/125*) 1 tab PO DAILY [facility] Last Admin: 11/13/19 08:31 Dose: 1 tab Chlorpromazine HCl (Thorazine Tab*) 100 mg PO Q6H PRN PRN Reason: AGITATION Cholecalciferol (Vitamin D Tab*) 5,000 units PO WEEKLY [facility] Dextrose (D50w Syringe 50 Ml*) 12.5 gm IV PUSH .FOR FS < 60 - SS PRN PRN Reason: FS < 60 Gabapentin (Neurontin Cap(*)) 300 mg PO TID [facility] Last Admin: 11/13/19 14:39 Dose: Not Given Gemfibrozil (Lopid Tab*) 600 mg PO BID [facility] Last Admin: 11/13/19 08:31 Dose: 600 mg Sodium Chloride (Ns 0.9% 1000 Ml) 1,000 mls @ 125 mls/hr IV PER RATE [facility] Last Admin: 11/13/19 14:38 Dose: 125 mls/hr Insulin Glargine (Lantus(*)) 25 units SUBCUT QPM [facility] Last Admin: 11/12/19 18:24 Dose: Not Given Insulin Glargine (Lantus(*)) 60 units SUBCUT QAM [facility] Last Admin: 11/13/19 08:37 Dose: 60 units Insulin Human Lispro (Humalog*) 10 units SUBCUT [facility] Last Admin: 11/13/19 13:24 Dose: 10 units Ketorolac Tromethamine (Toradol Inj*) 30 mg IV PUSH Q6H PRN PRN Reason: PAIN - MODERATE Lorazepam (Ativan Tab(*)) 1 mg PO Q6H PRN PRN Reason: Anxiety/agitation Mirtazapine (Remeron Tab*) 15 mg PO BEDTIME [facility] Nicotine (Nicotine Patch 21 Mg/24 Hr*) 1 patch TRANSDERM DAILY@0800 [facility] Last Admin: 11/13/19 08:37 Dose: Not Given Nicotine Polacrilex (Nicotine Gum*) 4 mg PO Q2H PRN PRN Reason: CRAVING Pancrelipase (Zenpep Delayed Cap*) 35,000 units PO TID WITH MEALS [facility] Pharmacy Profile Note (Nicotine Patch Removal Note*) 1 note FOLLOW UP 2100 [facility] Last Admin: 11/12/19 19:03 Dose: Not Given Sucralfate (Carafate*) 1 gm PO TID [facility] Last Admin: 11/13/19 13:23 Dose: Not Given Ursodiol (Actigall Cap*) 300 mg PO TID [facility] Last Admin: 11/13/19 14:39 Dose: Not Given - Discharge Plan Discharge Plan: Inpatient Hospitalization
[2019-11-13] MEDS: Pancrelipase CAP* 5,000 UNITS CAP PO SCH (16:05)
[2019-11-13 17:12] LABS: Troponin I 0.03 ng/mL (<0.03)
--- NOTE | 2019-11-13 17:42 | HP ---
CC: Dr. Azael Olvera; Dr. Haley Naranjo* HISTORY AND PHYSICAL: DATE OF ADMISSION: 11/13/19 PRIMARY CARE PROVIDER: Dr. Azael Olvera. ATTENDING PHYSICIAN: Dr. Sugar Giron* (Tanya Bright NP). CHIEF COMPLAINT: Abdominal pain. HISTORY OF PRESENT ILLNESS: Mr. Chinchilla is a 44-year-old male, well known to our service, with past medical history of chronic pancreatitis, necrotizing pancreatitis, splenic necrosis, familial hypertriglyceridemia, insulin- dependent diabetes, who initially presented to the emergency room on 11/10/19 with suicidal ideations. He was admitted to behavioral services unit on . At that point, he reported that he was trying to commit suicide with drugs as he was sick of being ill and feeling as though he was a burden to his family. Hospital Medicine was consulted due to his uncontrolled diabetes and complicated clinical picture. Emily No, ANNA, consulted on the day of admission. At that time, no significant changes were made and the patient was placed on home doses of insulin. Psychiatry was in touch with Dr. Naranjo from Gastroenterology, who did recommend an MRCP, which was ordered for yesterday, 11/12/19. The patient refused the MRCP yesterday. He additionally refused lab work yesterday and had been refusing all of his fingersticks and medications. This morning, I received a call from nursing staff who expressed concern over the patient's lethargy this morning. He was noted to have a blood glucose this morning of 381. He did agree to lab work this morning, which did reveal a glucose of 578, a total bili of 10, AST of 184, ALT of 317, alk phos of 1100, and troponin of 0.03. Most of these labs are elevated from the patient 's baseline. I did go down to see the patient this morning, who was difficult to have a conversation with as he was not particularly willing to answer many of my questions or provide any significant history. He did report that his abdominal pain was particularly bad this morning and that he generally felt unwell, though he did not indicate that the pain today was necessarily worse than his chronic abdominal pain. Because of these newly noted lab findings, the decision has been made at this point to transfer the patient up to the floor until he has been medically cleared to return back to Mental Health. PAST MEDICAL HISTORY: 1. Chronic necrotizing pancreatitis. 2. Familial hypertriglyceridemia. 3. Insulin-dependent diabetes mellitus, uncontrolled. 4. Functional asplenia. PAST SURGICAL HISTORY: 1. Partial pancreatectomy in 2014. HOME MEDICATIONS: 1. Calcium carbonate/vitamin D3 one tab p.o. daily. 2. Cholecalciferol 5000 units p.o. weekly. 3. Gabapentin 300 mg p.o. t.i.d. 4. Gemfibrozil 600 mg p.o. b.i.d. 5. NovoLog 10 units subcu a.c. 6. Lantus 60 units subcu q.a.m. 7. Lantus 25 units subcu q.p.m. 8. Nicotine nasal spray 1 spray both nares q.2 hours p.r.n. craving. 9. Pancrelipase 36,000 units p.o. a.c. 10. Carafate 1 g p.o. t.i.d. 11. Ursodiol 300 mg p.o. t.i.d. ALLERGIES: No known drug allergies. FAMILY HISTORY: Father had type 2 diabetes and mother from an [place] at 54. SOCIAL HISTORY: The patient currently smokes half-a-pack a day and has smoked for 30 years. He does not drink any alcohol. He does report using marijuana daily. He lives at home with his , who will be his surrogate decision maker in the event he is unable to make his own decisions. REVIEW OF SYSTEMS: An 11-point review of systems was performed and all the pertinent positive and negative findings are in the HPI. All other systems are negative. PHYSICAL EXAMINATION GENERAL: Mr. Chinchilla is an ill-appearing male, who appears older than his stated age, lying in bed, in no acute distress. VITAL SIGNS: Temp 98.1, heart rate 80, respiratory rate 15, oxygen saturation 97% on room air, blood pressure 121/82. HEENT: Visual fortune are grossly intact. RESPIRATORY: Lungs clear to auscultation throughout. No rhonchi, wheezes, or rales. CARDIOVASCULAR: Regular rate and rhythm. S1, S2 present. No murmurs, rubs, or gallops. ABDOMEN: Profoundly tender to light palpation. EXTREMITIES: Skin warm and smooth bilaterally. MUSCULOSKELETAL: Full range of motion. NEURO: Drowsy but arousable to voice and oriented x4, though difficult to converse with. DIAGNOSTIC STUDIES/LAB DATA: Sodium 127, potassium 4.1, chloride 89, carbon dioxide 19, BUN 22, creatinine 0.84, glucose 578. Total bili 10, AST 184, ALT 317, alk phos 1178. Troponin 0.03. Amylase 21. ASSESSMENT AND PLAN: Mr. Chinchilla is a 44-year-old male with past medical history of chronic pancreatitis, hypertriglyceridemia, and insulin-dependent diabetes, who has been hospitalized in [facility] since 11/10/19 and is now being transferred inpatient for: 1. Transaminitis and elevated bilirubin. The patient's bili is significantly elevated from baseline. AST and ALT are also elevated from 3 days prior. The etiology is not entirely clear. As noted above, Dr. Naranjo recently recommended an MRCP. I did speak with the patient about this today, and at this point he is agreeable to moving forward with an MRCP today. This should give us some further information if there is anything acutely going on. I did speak with Dr. Bernstein from Gastroenterology, who will see the patient in consultation and will review the MRCP results. He will also speak with Dr. Estefani Barraza regarding the case. At this point, I will hydrate the patient with IV fluids and trend labs. 2. Hyperglycemia. The patient's glucose on BMP this morning was noted to be 578. This is not surprising as the patient has been refusing all fingersticks and insulin. He did receive his morning Lantus today, so I would hope that blood glucose will begin to come down. We will continue to attempt to check blood sugars a.c. and h.s. and cover with sliding scale insulin as indicated. He is noted to have an A1c of 11.4 and so he is obviously poorly controlled at baseline. 3. Elevated troponin. The patient does have an elevated troponin of 0.03. Repeat was noted to be 0.04. A third troponin will be performed later today. I did check an EKG, which does not show any acute ST changes. Compared to his EKG from 3 days prior, they appear similar. He is noted to have some ST elevation in V2, though none noted in any other leads and no other ST changes, so this may just represent repolarization. This can also be seen in previous EKGs in 2018. At this point, the patient is not complaining of chest pain and so I am not particularly concerned about an acute coronary syndrome, though we will attempt to trend troponins until we see them trending down. 4. Chronic pancreatitis. The patient does have chronic abdominal pain related to his chronic pancreatitis. He is complaining of pain this morning, though this is not necessarily increased from his typical pain. The patient does have a history of drug-seeking, so I will be avoiding any narcotics, and at this point, I have ordered Toradol only. 5. Suicidal ideations. Psychiatry will continue to follow the patient while he is up on the floor. They have asked that he remain a one-to-one, which has been ordered. The plan will be to transfer the patient back down to [facility] when he is medically cleared to do so. 6. Hypertriglyceridemia. Continue gemfibrozil. 7. Depression. He has been started on mirtazapine by Psychiatry, which can be continued at this time. 8. FEN: I have ordered IV fluids. I think the patient is likely dehydrated from hyperglycemia, so we will continue IV fluids for now. At this point, he is n.p.o. pending MRCP and after that I will order a diet. He does not require any electrolyte repletion. 9. DVT prophylaxis: According to the DVT Risk Assessment, the patient scores a 1, making him low risk. I have ordered SCDs. 10. Code status: Full code. TIME SPENT: Approximately 70 minutes was spent on this admission, approximately half of that time spent [id number] with the patient obtaining my history, performing my physical exam, and reviewing the plan of care. This case has been reviewed with my attending Dr. Giron, who is in agreement with the plan of care. TANYA BRIGHT, ANNA [id number]/[facility] #: [id number] JARAD
--- NOTE | 2019-11-13 20:21 | TRS ---
TRANSFER SUMMARY: DATE OF ADMISSION: 11/10/19 DATE OF TRANSFER: To telemetry, 11/13/19. SUPERVISING PSYCHIATRIST: Dr. Elroy Otero* (dictated by ABIGAIL Duff) . JUSTIFICATION FOR ADMISSION: The patient presented to the emergency department with suicidal ideation and a recent overdose attempt on cocaine. CHIEF COMPLAINT: "I'm sick." HISTORY OF PRESENT ILLNESS/HOSPITAL COURSE: Ryder is a 44-year-old white male , , domiciled, unemployed. He has a history of multiple medical comorbidities. He presented to the ED on 11/10/19 due to suicidal ideation and a recent attempt at suicide via cocaine. The patient is irritable and uncooperative. Most of the following is obtained through electronic medical records. The patient presented to the emergency department the day after he and his 's wedding anniversary. His said that he has been having a hard time lately because of his medical complications and that he was upset that he could not do anything for her on their anniversary. He left that day at 6 p.m. and she had not heard anything about him until she received a call from the ED. He told the bulldozer press operator that he "tried to kill myself with drugs because I do not want to be here anymore, I came here because it did not work, I 'm tired of being a burden to my family, I'm sick and not getting better, my health is not getting better, I'm not crazy, I just want to ." He denies a history of anxiety, mood or psychotic disorder. He is irritable and agitated and met criteria for involuntary admission. Hospitalist consult was placed by admitting psychiatrist due to the elevated glucose level and his medical history. He was seen by hospitalist, ANNA No. He had gotten labs done in the ED. He has poor venous access; therefore, ultrasound was needed to establish phlebotomy. An EKG was done upon arrival to the mental health unit. The patient was minimally cooperative with the hospitalist. Upon presentation on first full day of admission to the mental health unit, he was considerably irritable and edgy. He reports "I'm sick" and when I asked for further information, he is evasive. I explained my role in his care and he states "my head is fine." He states that he cannot talk to anyone about his feelings and that is partly why he has gotten to the mental state he is in. He states that he cannot talk to his . He left their home on Sunday and reportedly was living alone. According to , he was still living at the home , but had just not been home for a couple of days, he would not disclose where. He states he left his because he does not deserve her and she does not deserve to always be upset by him. The patient asks about status of admission and he is informed that he is admitted on an involuntary basis. This is increasingly agitating to him. He demands to be let out immediately. Therapeutic communication with myself and social insurance adviser was attempted. The patient demanded that we leave his room. He apologized later for his attitude towards us. He presents as alternating between wanting help and refusing help. I received a call from chucking machine set up operator tool Dr. Naranjo, who was expecting to see him on an outpatient visit today. She recommended that he have a cholangiogram, MRCP due to increased LFTs and bilirubin. The patient is to be n.p.o. after midnight to have that study done tomorrow morning. The patient has been refusing medications, fingersticks, or any medical treatment today. Please see H and P dictated by this chief underwriter for a full psychosocial history. Psychiatric treatment rendered: The patient was admitted to adult behavioral services unit on involuntary status. Code status was full. He was placed on 15 - minute checks for safety. We restarted known outpatient medications with the addition of nicotine replacement and lorazepam 1 mg p.r.n. anxiety/agitation. Hospitalist services adjusted his insulin doses and continued to follow. The patient refused medical treatments including fingersticks, lab draws, or medications for the first 2 days of his admission. He was politely dismissive when treatment team providers attempted to engage with him. On the morning of 11/13/19, nursing staff noted that he was lethargic and jaundiced. He consented to a.m. medications, blood draws, and EKG. He was noted to have drastically elevated LFTs, bilirubin, and a troponin of 0.3. Hospitalist service was contacted and the patient deemed appropriate for transfer to telemetry. This chief underwriter observed nonverbal signs and symptoms of pain. The patient had not requested pain medication prior to my offering of such. He reported Dilaudid to be effective and was given a one-time dose of Dilaudid 2 mg p.o. He refused to be n.p.o. for pending cholangiogram. He requested a popsicle and reported this to be very helpful for GI distress. Upon approach, the patient is willing to engage in conversation with this chief underwriter. He was agreeable to transfer to telemetry. He was notified that he will be on a one-to-one due to suicide and elopement risk. He was tearful and endorsed hopelessness, worthlessness, guilt, and shame. He made statements about being a coward as he was unable to complete suicide and frustration that his body would not let him . He states that his and family did not deserve to suffer due to him. He also states sadness that his family would suffer if he suicided. He endorsed chronic pain causing mental anguish. He states that he believes in karma and that his medical illnesses are due to such. Enterprise Cloud Architect inquires if he has a medical marijuana card. He states his deck officer will not allow such; therefore, he utilizes K2 and Opana off the street to help with pain, appetite, and anxiety. He denies IV drug use and states he is assumed to do so by medical providers. He reports this to be very frustrating and defeating. The patient states he has been on parole since 2002 and is often violated. He is hopeful to complete parole this March. He gave informed consent to start mirtazapine for depression along with benefit of increased appetite and sleep. The patient was transferred to [address] [place] [address], on telemetry. He is on one-to-one observation again due to suicide and elopement risk. Psychiatry will continue to follow and the patient will return to [facility] after medical stabilization. JAGUAR ZARAGOZA, ABIGAIL [id number]/[facility] #: [id number] JARAD
[2019-11-13] MEDS: Nicotine Patch Removal NOTE FOLLOW UP SCH (20:23)
[2019-11-13] MEDS ORDERED: Dextrose 50% Syringe 50 ML* 25 GM/50 ML SYRINGE IV PUSH PRN (20:33)
[2019-11-13] MEDS ORDERED: Insulin LISPRO* 1 UNITS UNIT SUBCUT ONE (20:33)
[2019-11-13] MEDS ORDERED: Mirtazapine TAB* 15 MG PO SCH (21:00)
[2019-11-14] MEDS: NS 0.9% 1000 ML** 1,000 ML IV SCH (03:19)
[2019-11-14 06:02] LABS: Hematocrit 43 % (42-52); Hemoglobin 14.7 g/dL (14.0-18.0); Mean Corpuscular HGB Conc 34 g/dL (31-36); Mean Corpuscular Hemoglobin 35 pg (27-31); Mean Corpuscular Volume 102 fL (80-94); Mean Platelet Volume 9.2 fL (7.4-10.4); Platelet Count 353 10^3/uL (150-450); Red Blood Count 4.23 10^6 /uL (4.18-5.48); Red Cell Distribution Width 14 % (10-15); White Blood Count 10.5 10^3/uL (3.5-10.8)
[2019-11-14 06:09] LABS: Albumin 3.5 g/dL (3.2-5.2); Calcium 8.4 mg/dL (8.6-10.3); Potassium 3.6 mmol/L (3.5-5.0)
[2019-11-14 06:15] LABS: Albumin/Globulin Ratio 1.3 (1-3); BUN/Creatinine Ratio 28.8 (8-20); EGFR African American 127.7 (>60); EGFR Non-African American 105.5 (>60); Globulin 2.7 g/dL (2-4); HDL Cholesterol 15.7 mg/dL; Total Protein 6.2 g/dL (6.4-8.9)
[2019-11-14 06:19] LABS: ABS Basophils 0.1 10^3/ul (0-0.2); ABS Eosinophils 0.1 10^3/ul (0-0.6); ABS Lymphocytes 2.4 10^3/ul (1.0-4.8); ABS Monocytes 0.8 10^3/ul (0-0.8); ABS Neutrophils 7.1 10^3/ul (1.5-7.7); Lymphocyte % 22.9 %; Nucleated Red Blood Cells % 0.1
[2019-11-14] MEDS: Insulin LISPRO* 1 UNITS UNIT SUBCUT SCH ×2 (07:50→08:17)
[2019-11-14] MEDS: Pancrelipase CAP* 5,000 UNITS CAP PO SCH (08:18)
[2019-11-14] MEDS: Ursodiol CAP* 300 MG PO SCH (08:18)
[2019-11-14] MEDS: Gabapentin CAP(*) 300 MG PO SCH (08:18)
[2019-11-14] MEDS: Calcium/Vitamin D TAB 250/125* TAB PO SCH (08:19)
[2019-11-14] MEDS: Nicotine PATCH 21 MG/24 HR* PATCH TRANSDERM SCH (08:19)
[2019-11-14] MEDS: Gemfibrozil TAB* 600 MG PO SCH (08:19)
[2019-11-14] MEDS: Sucralfate TAB* 1 GM PO SCH (08:19)
[2019-11-14 08:25] VITALS: BP 119/85
[2019-11-14] MEDS: Insulin GLARGINE(*) 1 UNITS UNIT SUBCUT SCH (08:38)
[2019-11-14] MEDS: Ketorolac INJ* 30 MG/ML 1 ML VIAL IV PUSH PRN (08:39)
--- NOTE | 2019-11-14 11:07 | PN ---
Subjective - Subjective Date of Service: 11/14/19 Service Type: 05079 Hosp care 35 min high complexity Subjective: patient presents as dysphoric. He continues to endorse hopelessness and worthlessness. He reports speaking with his over the phone and she is pleading him to return home. He states "I'm toxic for her." He is contemplating living in a homeless fdc after discharge. He is forthcoming about dependence on K2, as this is helpful for pain but he knows it is "not good for him." He states he wants to "break the cycle." Patient aware of plan to transfer to [facility]. He lacks capacity to make informed medical decisions due to suicidality. He is at risk for suicide and medical complications if he leaves [facility]. Objective - General Observations Appearance: Unkempt Stature: Thin Posture: Slumped Eye Contact: Average Behavior/Activity: WNL - Interaction Observations Attitude Towards Examiner: Cooperative Stated Mood: Dysphoric, Irritable Affect: Restricted Speech Pattern/Tone: Clear, Appropriate, Normal Volume Thought Process: Coherent, Circumstantial Thought Content: Depressive, Self-Deprecatory Thought Process: Lethality: Passive Wish, Suicidal Planning Hallucination Type: Denies Delusion Type: Denies - Cognitive Function Orientation: A&O x 4 Level of Consciousness: Alert Cognition: Impaired Attention/Concentration Estimated Intelligence: Normal Insight: Difficulty Acknowledging Presence of Psyciatric Problems Judgment Within Normal Limits: No Ability to Make Reasonable Decisions: Moderately Impaired - Medication Compliance Cooperative with Inpatient Medication Regimen: Yes Assessment - Assessment Merits Inpatient Hospitalization: For Immediate Safety, For Stabilization Inpatient DSM-V Dx: F43.25 Clinical Impression: 44yo wm, , domiciled, unemployed, with multiple medical comorbidities who presented to ED voluntarily due to suicidal ideation and a recent suicide attempt via cocaine. At beginning of admission to the [facility], he was refusing medical and psychiatric treatment. He accepted blood work on AM of 11/12 and noted to have elevated troponin and LFTs, bilirubin. He was transferred to telemetry and underwent diagnostic studies. He is being transferred to [facility] for stent placement. He merits hospitalization for immediate safety and stabilization. Plan - Plan Treatment Plan: Name: THONG GU Birthdate: 1975 [id number] Patient aware of plan to transfer to [facility]. He lacks capacity to make informed medical decisions due to suicidality. He is at risk for suicide and medical complications if he leaves [facility]. Medications: Current Medications Calcium/Vitamin D (Oscal D Tab 250/125*) 1 tab PO DAILY [facility] Last Admin: 11/14/19 08:19 Dose: 1 tab Chlorpromazine HCl (Thorazine Tab*) 100 mg PO Q6H PRN PRN Reason: AGITATION Cholecalciferol (Vitamin D Tab*) 5,000 units PO WEEKLY [facility] Gabapentin (Neurontin Cap(*)) 300 mg PO TID [facility] Last Admin: 11/14/19 08:18 Dose: 300 mg Gemfibrozil (Lopid Tab*) 600 mg PO BID AC [facility] Last Admin: 11/14/19 08:19 Dose: 600 mg Sodium Chloride (Ns 0.9% 1000 Ml) 1,000 mls @ 125 mls/hr IV PER RATE [facility] Last Admin: 11/14/19 03:19 Dose: 125 mls/hr Insulin Glargine (Lantus(*)) 25 units SUBCUT QPM [facility] Last Admin: 11/13/19 18:02 Dose: 25 units Insulin Glargine (Lantus(*)) 60 units SUBCUT QAM [facility] Last Admin: 11/14/19 08:38 Dose: 60 units Insulin Human Lispro (Humalog*) 10 units SUBCUT AC [facility] Last Admin: 11/14/19 08:17 Dose: 10 units Ketorolac Tromethamine (Toradol Inj*) 30 mg IV PUSH Q6H PRN PRN Reason: PAIN - MODERATE Last Admin: 11/14/19 08:39 Dose: 30 mg Lorazepam (Ativan Tab(*)) 1 mg PO Q6H PRN PRN Reason: Anxiety/agitation Last Admin: 11/14/19 03:13 Dose: 1 mg Mirtazapine (Remeron Tab*) 15 mg PO BEDTIME [facility] Last Admin: 11/13/19 20:59 Dose: 15 mg Nicotine (Nicotine Patch 21 Mg/24 Hr*) 1 patch TRANSDERM DAILY@0800 [facility] Last Admin: 11/14/19 08:19 Dose: Not Given Nicotine Polacrilex (Nicotine Gum*) 4 mg PO Q2H PRN PRN Reason: CRAVING Pancrelipase (Zenpep Delayed Cap*) 35,000 units PO TID WITH MEALS [facility] Last Admin: 11/14/19 08:18 Dose: 35,000 units Pharmacy Profile Note (Nicotine Patch Removal Note*) 1 note FOLLOW UP 2100 [facility] Last Admin: 11/13/19 20:23 Dose: Not Given Sucralfate (Carafate*) 1 gm PO TID AC [facility] Last Admin: 11/14/19 08:19 Dose: 1 gm Ursodiol (Actigall Cap*) 300 mg PO TID [facility] Last Admin: 11/14/19 08:18 Dose: 300 mg - Discharge Plan Additional Comments: Transfer to [facility] in [place].
--- NOTE | 2019-11-14 11:51 | TRS ---
CC: Dr. Azael Olvera; Dr. Haley Naranjo* DATE OF ADMISSION: 11/10/2019. DATE OF TRANSFER: 11/14/2019. PRIMARY CARE PHYSICIAN: Dr. Aazel Olvera. ATTENDING PHYSICIAN: Dr. Sugar Giron* (dictated by Tanya Bright NP). PRIMARY DIAGNOSES: 1. Primary sclerosing cholangitis. 2. Transaminitis. 3. Hyperbilirubinemia. 4. Chronic necrotizing pancreatitis. SECONDARY DIAGNOSES: 1. 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 2. Familial hypertriglyceridemia. 3. Functional asplenia. STUDIES WHILE IN THE HOSPITAL: 1. EKG on 11/10/2019 shows normal sinus rhythm with a rate of 76, QTC 466, mild ST elevation in V2. 2. MRCP on 11/13/2019 reads as: Moderate intrahepatic and mild extrahepatic biliary dilatation. Mildly beaded appearance of the intrahepatic bile ducts suggesting potential primary sclerosing cholangitis. No filling defects evident within the common bile duct to suggest choledocholithiasis. 3. EKG on 11/13/2019 shows a normal sinus rhythm with a rate of 76, QTC 466. Again noted is mild ST elevation in V2. HISTORY OF PRESENT ILLNESS/HOSPITAL COURSE: Mr. Chinchilla is a 44-year-old male, well- known to our service, with a past medical history of chronic pancreatitis , necrotizing pancreatitis status post partial pancreatectomy in 2014, splenic necrosis with functional asplenia, familial hypertriglyceridemia, and insulin- dependent diabetes secondary to partial pancreatectomy who was initially admitted to this facility on 11/10/2019 to our Behavioral Services Unit due to suicidal ideations and ingestion of cocaine. On admission, the patient was noted to have a total bili of 2.7, AST 125, ALT 276, and an alk phos 1060. Hospital Medicine was following the patient while down in Behavioral Services. He has been refusing care, including blood sugar checks, medications, including insulin, and MRCP. I received a call yesterday from nursing staff down in Behavioral Services who were concerned about the patient's lethargy. He was agreeable to labs yesterday morning which did reveal a total bili of 10, AST of 184, ALT of 317, alk phos of 1178, and troponin of 0.03. At that point, he was agreeable to an MRCP which had been ordered the day before. Because of these labs findings, he was transferred up to the Medical floor by the Hospitalist Service. The patient has remained one-to-one per Psychiatry recommendations and Psychiatry has indicated that the patient lacks capacity to leave against medical advice. He has remained stable while up on the floor. He did have an MRCP yesterday with results noted above. I did speak with Dr. Naranjo of Gastroenterology this morning and she was considered about these findings on the MRCP and the need for likely ERCP with possible stenting. Unfortunately, we are unable to perform an ERCP at this point and so Gastroenterology recommended transfer. This morning, total bili is down to 7, AST is 346, ALT is 346, alk phos 960. Troponin did peak yesterday at 1330 at 0.04 and then trended back down to 0.03. There was no concern for acute coronary syndrome at this point. Triglycerides this morning were noted to be 255, LDL was 334, hemoglobin A1c is 11.4. I did speak with Hospitalist Service and Gastroenterology Service at [facility] and at this point they have accepted the patient for transfer. I spoke with the patient about the results of the MRCP and need for transfer. He understand these results and plan of care moving forward and is agreeable to the transfer. I have also notified our psychiatry team of this transfer. PHYSICAL EXAMINATION: General: Mr. Chinchilla is an ill-appearing male, slightly jaundice, who appears older than his stated age, lying in bed in no acute distress. Vital Signs: Temperature 97.5, heart rate 73, respiratory rate 16, oxygen saturation 100 percent on room air, blood pressure 119/85. HEENT: Visual fortune are grossly intact. Oral mucus membranes are moist. Respiratory : Lungs clear to auscultation throughout. No rhonchi, wheezes or rubs. Cardiovascular: Regular rate and rhythm. S1, S2 present. No murmurs, rubs, or gallops. Abdomen: Abdominal exam is refused by the patient, though yesterday he was noted to be profoundly tender to very light palpation. Musculoskeletal: Full range of motion. Awake, alert, and oriented times four. Moves all extremities. LABORATORY DATA: WBC 10.5, RBC 4.23, hemoglobin 14.7, hematocrit 43, platelets 353; sodium 133, potassium 3.6, chloride 102, carbon dioxide 22, BUN 23, creatinine 0.80, glucose 107, total bili 7, AST 346, ALT 346, alk phos 960, troponin 0.03, triglycerides 255, total cholesterol 401, LDL 334, HDL 15. Toxicology screen on the date of admission was positive for cocaine and cannabinoids. CURRENT MEDICATIONS: 1. Calcium/vitamin D 250/125 one tab p.o. daily. 2. Thorazine 100 mg p.o. q.6 hours prn agitation. 3. Vitamin D3 5,000 units p.o. weekly. 4. Gabapentin 300 mg p.o. t.i.d. 5. Gemfibrozil 600 mg p.o. b.i.d. 6. Lantus 60 units q.a.m. 7. Lantus 25 units q.p.m. 8. Lispro 10 units subcu a.c. 9. Toradol 30 mg IV q.6 hours prn pain. 10. Lorazepam 1 mg p.o. q.6 hours prn anxiety. 11. Mirtazapine 15 mg p.o. at bedtime 12. Nicotine patch 21 mg one patch transdermal daily. 13. Nicotine gum 4 mg p.o. q.2 hours prn craving. 14. Pancrelipase 35,000 units p.o. a.c. 15. Normal saline 0.9% at 125 ml/hour. 16. Carafate 1 gm p.o. a.c. 17. Ursodiol 300 mg p.o. t.i.d. DIET: Clear liquids. ACTIVITY: Ad colin. OTHER RECOMMENDATIONS: 1. The patient will need to remain a one-to-one for suicidal ideation. 2. The patient lacks capacity to leave against medical advice. CONDITION ON TRANSFER: Fair. DISPOSITION: Higher level of care, [facility]. ACCEPTING PHYSICIAN: Dr. Az Frost (case also discussed with Dr. Klever Felix from Gastroenterology). This is a summarized report of a complex medical history and hospital stay. For further details, please see the entire medical record. TIME SPENT: Approximately 90 minutes were spent on this transfer. TANYA BRIGHT, HEAD PIECE ASSEMBLER [id number]/CPS #: [id number] JARAD
--- NOTE | 2019-11-14 12:37 | PN ---
Progress Note - Progress Note Date of Service: 11/14/19 Note: GASTROENTEROLOGY PROGRESS NOTE IE/S: - MRCP w/ moderate intrahepatic and mild extrahepatic varghese dil. Mildly beaded appearance of intrahepatic bile ducts suggestive of PSC. - Abdominal pain is chronic and unchanged. O: VS reviewed: WNL. AFeb. Exam: Disheveled appearing gentleman. NAD. Patient declined physical exam. CBC WNL. CMP notable for: Na 133. bilirubin 10 (direct 6.1) on 11/12 > 7 today. AST 184 > 346, ALT 317 > 346, Alk phos 1178 > 960. Acute Hep panel negative. MRCP abnormal as above. A/P: 44yM w/ history of poorly controlled diabetes and chronic pancreatitis (prior records note h/o alcoholism and hyperTG) c/b necrotizing pancreatitis s/p partial resection (details unclear), who is admitted with suicide attempt. Labs in September demonstrated elevated bilirubin, which peaked at 10 yesterday. Predominantly direct hyperbilirubinemia. Imaging demonstrates moderate intrahepatic and mild extrahepatic biliary dilation. There was note of mildly beaded appearance of intrahepatic bile ducts suggestive of PSC. Prior records are scattered and limited making it difficult to know if/how the chronic pancreatitis history is connected to current presentation. 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 Patient is not cholangitic, although he is at risk given the biliary disease w/ elevated bilirubin. - Continue to monitor LFTs daily. - Check IgG4 (if patient remains in-house). - Recommend transfer to facility equipped to perform ERCP w/ probable stenting. Per primary team, patient will be transferred to [facility] today. Haley Naranjo MD Gastroenterology
== END 2019-11-14 12:05 | disposition short-term general hospital (02) ==
LOC: ED 10:33 → BSU 14:04 → MEDTELE 11-13 10:45
PROVIDERS: ADMIT Psychiatry & Neurology Psychiatry; ATTEND Internal Medicine
DX: K83.09 Other cholangitis (principal); R45.851 Suicidal ideations; K86.1 Other chronic pancreatitis; E27.40 Unspecified adrenocortical insufficiency; Q89.01 Asplenia (congenital); R74.0 Nonspecific elevation of levels of transaminase and lactic acid dehydrogenase [LDH]; E10.65 Type 1 diabetes mellitus with hyperglycemia; E80.6 Other disorders of bilirubin metabolism; F43.25 Adjustment disorder with mixed disturbance of emotions and conduct; F14.14 Cocaine abuse with cocaine-induced mood disorder; F10.21 Alcohol dependence, in remission; E78.1 Pure hyperglyceridemia; F17.210 Nicotine dependence, cigarettes, uncomplicated; R94.31 Abnormal electrocardiogram [ECG] [EKG]; R74.8 Abnormal levels of other serum enzymes; F32.9 Major depressive disorder, single episode, unspecified; E78.00 Pure hypercholesterolemia, unspecified; Z79.4 Long term (current) use of insulin; Z79.899 Other long term (current) drug therapy; Z83.3 Family history of diabetes mellitus; Z83.438 Family history of other disorder of lipoprotein metabolism and other lipidemia
CPT/HCPCS: 36415; 74181; 76376; 80048; 80053; 80061; 80074; 80076; 80307; 80320; 80329; 81003; 81015; 82150; 82247; 82248; 83036; 83516; 83690; 84443; 84484; 85025; 85610; 85730; 87086; 93005; 99222; 99231; 99284; A9270-GY; G0480; J1885

== ENCOUNTER 2020-06-02 11:31 | Observation (INO) ==
[2020-06-02] MEDS ORDERED: NS 0.9% 1000 ml BAG 1,000 ML IV ONE ×2 (12:35→16:16)
[2020-06-02] MEDS ORDERED: Ondansetron 4 mg VIAL 2 MG/ML 2 ml VIAL IV ONE (12:35)
[2020-06-02] MEDS ORDERED: Morphine 4 MG/ML VIAL (1 ml) IV ONE ×2 (12:35→15:02)
[2020-06-02 13:56] LABS: ABS Basophils 0.1 10^3/ul (0-0.2); ABS Eosinophils 0.1 10^3/ul (0-0.6); ABS Lymphocytes 2.5 10^3/ul (1.0-4.8); Eosinophil % 0.6 %; Hematocrit 46 % (42-52); Mean Corpuscular HGB Conc 35 g/dL (31-36); Mean Corpuscular Hemoglobin 33 pg (27-31); Mean Corpuscular Volume 94 fL (80-94); Mean Platelet Volume 9.3 fL (7.4-10.4); Nucleated Red Blood Cells % 0.2; Platelet Count 345 10^3/uL (150-450); Red Blood Count 4.86 10^6 /uL (4.18-5.48); Red Cell Distribution Width 13 % (10-15); White Blood Count 17.7 10^3/uL (3.5-10.8)
[2020-06-02 14:19] LABS: ALT 190 U/L (7-52); Albumin 4.4 g/dL (3.2-5.2); Albumin/Globulin Ratio 1.3 (1-3); Alkaline Phosphatase 442 U/L (34-104); BUN/Creatinine Ratio 23.6 (8-20); Blood Urea Nitrogen 17 mg/dL (6-24); C Reactive Protein 6.89 mg/L (<8.01); CO2 Carbon Dioxide 26 mmol/L (22-32); Calcium 9.6 mg/dL (8.6-10.3); Chloride 94 mmol/L (101-111); EGFR African American 144.2 (>60); EGFR Non-African American 119.1 (>60); Globulin 3.5 g/dL (2-4); Glucose 428 mg/dL (70-100); Lipase 38 U/L (11.0-82.0); Magnesium 1.6 mg/dL (1.9-2.7); Sodium 128 mmol/L (135-145); Total Protein 7.9 g/dL (6.4-8.9)
[2020-06-02 14:24] LABS: Urine Appearance Clear; Urine Bilirubin Negative (Negative); Urine Blood Negative (Negative); Urine Color Yellow; Urine Glucose 3+(>=500 mg/dL) (Negative); Urine Ketones Negative (Negative); Urine Nitrite Negative (Negative); Urine Protein Negative (Negative); Urine Specific Gravity 1.026 (1.010-1.030); Urine Urobilinogen Negative (Negative)
[2020-06-02] MEDS ORDERED: Magnesium Sulfate 2 gm BAG 2 GM/50 ML BAG IVPB ONE (14:46)
[2020-06-02 14:50] LABS: Anion Gap 8 mmol/L (2-11)
[2020-06-02] MEDS ORDERED: Iodixanol (CONTRAST) 320 MG/ML 100 ML SDV IV ONE (15:08)
[2020-06-02 15:39] LABS: Triglycerides 274 mg/dL
[2020-06-02] MEDS ORDERED: Piperacillin/Tazobac ADVAN 3.375 GM in NS 0.9% 100 ml BAG 100 ML IV ONE (16:50)
[2020-06-02] MEDS ORDERED: Ondansetron 4 mg VIAL 2 MG/ML 2 ml VIAL IV PRN (17:52)
[2020-06-02] MEDS ORDERED: NICOTINE INH PRN (17:55)
[2020-06-02] MEDS ORDERED: Dextrose 50% Syringe 50 ml 25 GM/50 ML SYRINGE IV PUSH PRN (17:57)
[2020-06-02] MEDS ORDERED: Zosyn per Pharmacy NOTE FOLLOW UP SCH (18:00)
[2020-06-02] MEDS ORDERED: Lactated Ringers 1000 ml BAG 1,000 ML IV SCH (18:00)
[2020-06-02] MEDS: HYDROmorphone 1 MG/1 ML SYRINGE IV SLOW PU PRN (20:59)
[2020-06-02] MEDS: ZOSYN 3.375 GM Q8H per EXTENDED INFUSION IV SCH (21:44)
[2020-06-02] MEDS: Gemfibrozil 600 mg PO SCH (21:44)
[2020-06-02] MEDS: NS 0.9% 1000 ml BAG 1,000 ML IV SCH (21:48)
[2020-06-02] MEDS: Heparin 5000 UNITS/ML 1 mL VIAL SUBCUT SCH (22:00)
[2020-06-02] MEDS: Nicotine PATCH 14 MG/24 HR PATCH TRANSDERM SCH (23:45)
[2020-06-03] MEDS: HYDROmorphone 1 MG/1 ML SYRINGE IV SLOW PU PRN ×6 (00:53→21:34)
[2020-06-03] MEDS: Heparin 5000 UNITS/ML 1 mL VIAL SUBCUT SCH ×3 (04:54→21:34)
[2020-06-03] MEDS: ZOSYN 3.375 GM Q8H per EXTENDED INFUSION IV SCH ×2 (04:59→13:14)
[2020-06-03 05:46] LABS: ABS Basophils 0.1 10^3/ul (0-0.2); ABS Eosinophils 0.3 10^3/ul (0-0.6); ABS Lymphocytes 3.6 10^3/ul (1.0-4.8); ABS Monocytes 0.8 10^3/ul (0-0.8); ABS Neutrophils 6.6 10^3/ul (1.5-7.7); Eosinophil % 2.3 %; Hematocrit 43 % (42-52); Hemoglobin 14.7 g/dL (14.0-18.0); Lymphocyte % 31.9 %; Mean Corpuscular HGB Conc 34 g/dL (31-36); Mean Corpuscular Hemoglobin 33 pg (27-31); Mean Corpuscular Volume 95 fL (80-94); Mean Platelet Volume 8.8 fL (7.4-10.4); Nucleated Red Blood Cells % 0.1; Platelet Count 314 10^3/uL (150-450); Red Blood Count 4.48 10^6 /uL (4.18-5.48); Red Cell Distribution Width 13 % (10-15); White Blood Count 11.4 10^3/uL (3.5-10.8)
[2020-06-03 06:05] LABS: Albumin 3.6 g/dL (3.2-5.2); Albumin/Globulin Ratio 1.3 (1-3); BUN/Creatinine Ratio 16.9 (8-20); Calcium 8.4 mg/dL (8.6-10.3); EGFR African American 133.4 (>60); EGFR Non-African American 110.3 (>60); Globulin 2.8 g/dL (2-4); Magnesium 1.8 mg/dL (1.9-2.7); Potassium 4.8 mmol/L (3.5-5.0); Total Bilirubin 0.9 mg/dL (0.2-1.0); Total Protein 6.4 g/dL (6.4-8.9)
[2020-06-03] MEDS ORDERED: Magnesium Sulfate IV 1GM/100ML 1 GM/100 ML BAG IV ONE ×2 (06:50→07:29)
[2020-06-03] MEDS: PANCRELIPASE 12000 UNIT PO SCH ×3 (08:36→17:28)
[2020-06-03] MEDS ORDERED: Insulin GLARGINE 100 un/ml 10 ml VIAL SUBCUT SCH ×2 (09:00→21:00)
[2020-06-03] MEDS: Gemfibrozil 600 mg PO SCH ×2 (09:17→21:33)
[2020-06-03] MEDS: Nicotine PATCH 14 MG/24 HR PATCH TRANSDERM SCH (09:34)
[2020-06-03] MEDS: Insulin GLARGINE 100 un/ml 10 ml VIAL SUBCUT SCH (09:43)
[2020-06-03] MEDS: NS 0.9% 1000 ml BAG 1,000 ML IV SCH (11:42)
[2020-06-03] MEDS ORDERED: fentaNYL 100 mcg/2 ml 50 MCG/ML VIAL ONE (15:41)
[2020-06-03] MEDS ORDERED: Midazolam 10 mg/10 ml VIAL 1 mg/ml 10 ml VIAL (10 mg) ONE (15:41)
[2020-06-03] MEDS ORDERED: Pancrelipase 12,000 units (NF) PO SCH (17:00)
[2020-06-03] MEDS: Pantoprazole VIAL 40 MG VIAL IV SCH (17:29)
[2020-06-04] MEDS: HYDROmorphone 1 MG/1 ML SYRINGE IV SLOW PU PRN ×3 (01:41→09:54)
[2020-06-04] MEDS: Pantoprazole VIAL 40 MG VIAL IV SCH (02:51)
[2020-06-04] MEDS: NS 0.9% 1000 ml BAG 1,000 ML IV SCH (02:51)
[2020-06-04] MEDS: Heparin 5000 UNITS/ML 1 mL VIAL SUBCUT SCH (06:08)
[2020-06-04] MEDS: PANCRELIPASE 12000 UNIT PO SCH (07:14)
[2020-06-04] MEDS: Insulin GLARGINE 100 un/ml 10 ml VIAL SUBCUT SCH (07:15)
[2020-06-04 08:39] VITALS: BP 124/74
[2020-06-04] MEDS: Nicotine PATCH 14 MG/24 HR PATCH TRANSDERM SCH (08:59)
[2020-06-04] MEDS: Gemfibrozil 600 mg PO SCH (09:01)
== END 2020-06-04 10:57 | disposition left against medical advice (07) ==
LOC: ED 11:31 → MEDTELE 11:31
PROVIDERS: ADMIT Pediatrics; ATTEND Internal Medicine

== ENCOUNTER 2021-01-30 00:11 | Inpatient (IN) ==
[2021-01-30] MEDS ORDERED: Ondansetron 4 mg VIAL 2 MG/ML 2 ml VIAL IV ONE (01:06)
[2021-01-30] MEDS ORDERED: Morphine 4 MG/ML VIAL (1 ml) IV ONE (01:06)
[2021-01-30 01:13] LABS: Urine Appearance Clear; Urine Bilirubin Negative (Negative); Urine Blood Negative (Negative); Urine Color Yellow; Urine Glucose 3+(>=500 mg/dL) (Negative); Urine Ketones Negative (Negative); Urine Nitrite Negative (Negative); Urine Protein Negative (Negative); Urine Specific Gravity 1.021 (1.002-1.030); Urine Urobilinogen Negative (Negative)
[2021-01-30 01:13] LABS: CO2 Carbon Dioxide 27 mmol/L (22-32); Calcium 9.8 mg/dL (8.6-10.3); Chloride 88 mmol/L (101-111); Sodium 124 mmol/L (135-145)
[2021-01-30 01:19] LABS: ALT 119 U/L (7-52); Albumin/Globulin Ratio 1.1 (1-3); Alkaline Phosphatase 757 U/L (35-149); Blood Urea Nitrogen 10 mg/dL (6-24); C Reactive Protein 36.13 mg/L (<8.01); EGFR African American 86.2 (>60); EGFR Non-African American 71.2 (>60); Globulin 3.8 g/dL (2-4); Lipase 46 U/L (11.0-82.0); Total Protein 7.8 g/dL (6.4-8.9)
[2021-01-30 01:34] LABS: Anion Gap 9 mmol/L (2-11); Glucose 903 mg/dL (70-100); Glucose Confirmatory 903 mg/dL (70-100)
[2021-01-30] MEDS ORDERED: Dextrose 50% Syringe 50 ml 25 GM/50 ML SYRINGE IV PUSH PRN ×2 (01:39→14:55)
[2021-01-30 01:44] LABS: ABS Basophils 0.1 10^3/ul (0-0.2); ABS Lymphocytes 0.8 10^3/ul (1.0-4.8); ABS Neutrophils 9.3 10^3/ul (1.5-7.7); Eosinophil % 0.4 %; Hematocrit 40 % (42-52); Hemoglobin 14.2 g/dL (14.0-18.0); Lymphocyte % 7.3 %; Mean Corpuscular HGB Conc 35 g/dL (31-36); Mean Corpuscular Hemoglobin 35 pg (27-31); Mean Corpuscular Volume 99 fL (80-94); Platelet Count 412 10^3/uL (150-450); Red Blood Count 4.08 10^6 /uL (4.18-5.48); Red Cell Distribution Width 14 % (10-15); White Blood Count 11.2 10^3/uL (3.5-10.8)
[2021-01-30] MEDS: Lactated Ringers 1000 ml BAG 1,000 ML IV SCH ×4 (02:13→17:28)
[2021-01-30 02:40] LABS: Potassium Redraw 3.8 mmol/L (3.5-5.0)
[2021-01-30] MEDS ORDERED: Iodixanol (CONTRAST) 320 MG/ML 100 ML SDV IV ONE (02:58)
[2021-01-30] MEDS ORDERED: Morphine 10 MG/ML VIAL (1 ml) IV ONE (04:33)
[2021-01-30] MEDS ORDERED: Al Hydrox/Mg Hydrox/Simet LIQ 30 ML UDC PO PRN (06:23)
[2021-01-30] MEDS ORDERED: Lactated Ringers 1000 ml BAG 1,000 ML IV ONE (06:26)
[2021-01-30] MEDS: Ondansetron 4 mg VIAL 2 MG/ML 2 ml VIAL IV PRN ×2 (08:02→19:52)
[2021-01-30 10:43] LABS: HDL Cholesterol 45.1 mg/dL
[2021-01-30] MEDS: PANCRELIPASE 36000 UNIT PO SCH ×2 (12:19→17:07)
[2021-01-30] MEDS: Insulin GLARGINE 100 un/ml 10 ml VIAL SUBCUT SCH ×2 (12:20→21:42)
[2021-01-30] MEDS: Enoxaparin 40 MG/0.4 ML SYR SUBCUT SCH (12:29)
[2021-01-30] MEDS ORDERED: Lorazepam PYXIS KEY PRN (17:04)
[2021-01-30] MEDS ORDERED: LORazepam 2 mg VIAL 1 ml IV PUSH PRN (17:04)
[2021-01-30] MEDS ORDERED: HYDROmorphone 1 MG/1 ML SYRINGE IV SLOW PU PRN (20:44)
[2021-01-31] MEDS: Lactated Ringers 1000 ml BAG 1,000 ML IV SCH (01:24)
[2021-01-31] MEDS: HYDROmorphone 0.5 MG/0.5 ML SYRINGE IV SLOW PU PRN ×2 (01:26→05:40)
[2021-01-31 04:34] VITALS: BP 162/99
[2021-01-31 06:38] LABS: ABS Basophils 0.1 10^3/ul (0-0.2); ABS Eosinophils 0.1 10^3/ul (0-0.6); ABS Lymphocytes 1.3 10^3/ul (1.0-4.8); ABS Monocytes 0.7 10^3/ul (0-0.8); ABS Neutrophils 10.8 10^3/ul (1.5-7.7); Eosinophil % 0.7 %; Hematocrit 42 % (42-52); Hemoglobin 14.7 g/dL (14.0-18.0); Lymphocyte % 9.9 %; Mean Corpuscular HGB Conc 35 g/dL (31-36); Mean Corpuscular Hemoglobin 33 pg (27-31); Mean Corpuscular Volume 95 fL (80-94); Mean Platelet Volume 9.2 fL (7.4-10.4); Nucleated Red Blood Cells % 0.2; Platelet Count 344 10^3/uL (150-450); Red Cell Distribution Width 14 % (10-15)
[2021-01-31 06:50] LABS: INR 1.05 (0.82-1.09)
[2021-01-31 06:58] LABS: Albumin 3.6 g/dL (3.2-5.2); Albumin/Globulin Ratio 1.1 (1-3); Calcium 8.9 mg/dL (8.6-10.3); EGFR African American 150.7 (>60); EGFR Non-African American 124.6 (>60); Globulin 3.2 g/dL (2-4); Potassium 2.9 mmol/L (3.5-5.0); Total Bilirubin 5.1 mg/dL (0.2-1.0); Total Protein 6.8 g/dL (6.4-8.9)
[2021-01-31] MEDS: Insulin GLARGINE 100 un/ml 10 ml VIAL SUBCUT SCH (08:09)
[2021-01-31] MEDS: PANCRELIPASE 36000 UNIT PO SCH (08:19)
[2021-01-31] MEDS: Enoxaparin 40 MG/0.4 ML SYR SUBCUT SCH (08:20)
== END 2021-01-31 07:30 | disposition left against medical advice (07) | DRG 282 ==
LOC: ED 00:11 → MEDTELE 09:19
PROVIDERS: ADMIT Hospitalist; ATTEND Internal Medicine

== ENCOUNTER 2021-03-24 07:12 | Inpatient (IN) ==
[2021-03-24] MEDS ORDERED: Lactated Ringers 1000 ml BAG 1,000 ML IV ONE ×2 (07:34→10:12)
[2021-03-24] MEDS ORDERED: Al Hydrox/Mg Hydrox/Simet LIQ 30 ML UDC PO ONE (07:37)
[2021-03-24] MEDS ORDERED: Dextrose 50% VIAL 50 ml IV PRN (08:59)
[2021-03-24 09:05] LABS: Hematocrit 41 % (42-52); Hemoglobin 14.3 g/dL (14.0-18.0); Mean Corpuscular HGB Conc 35 g/dL (31-36); Mean Corpuscular Hemoglobin 34 pg (27-31); Mean Corpuscular Volume 97 fL (80-94); Mean Platelet Volume 8.2 fL (7.4-10.4); Platelet Count 541 10^3/uL (150-450); Red Blood Count 4.22 10^6 /uL (4.18-5.48); Red Cell Distribution Width 13 % (10-15); White Blood Count 23.5 10^3/uL (3.5-10.8)
[2021-03-24 09:31] LABS: Albumin/Globulin Ratio 0.9 (1-3); C Reactive Protein 23.29 mg/L (<8.01); Calcium 9.3 mg/dL (8.6-10.3); EGFR African American 164.4 (>60); EGFR Non-African American 135.9 (>60); Globulin 4.4 g/dL (2-4); Total Bilirubin 2.5 mg/dL (0.2-1.0); Total Protein 8.4 g/dL (6.4-8.9)
[2021-03-24 09:56] LABS: Potassium 2.4 mmol/L (3.5-5.0)
[2021-03-24] MEDS: Dextrose 50% Syringe 50 ml 25 GM/50 ML SYRINGE IV PUSH PRN ×2 (10:04→10:10)
[2021-03-24 10:07] LABS: ABS Basophils 0.1 10^3/ul (0-0.2); ABS Eosinophils 0.1 10^3/ul (0-0.6); ABS Lymphocytes 1.6 10^3/ul (1.0-4.8); ABS Monocytes 1.2 10^3/ul (0-0.8); ABS Neutrophils 20.5 10^3/ul (1.5-7.7); Eosinophil % 0.4 %; Lymphocyte % 6.9 %
[2021-03-24] MEDS ORDERED: Iodixanol (CONTRAST) 320 MG/ML 100 ML SDV IV ONE (10:19)
[2021-03-24] MEDS ORDERED: Dextrose 50% Syringe 50 ml 25 GM/50 ML SYRINGE IV PUSH PRN (10:25)
[2021-03-24] MEDS ORDERED: HYDROmorphone 0.5 MG/0.5 ML SYRINGE IV ONE ×3 (10:41→11:38)
[2021-03-24] MEDS ORDERED: HYDROmorphone 0.5 MG/0.5 ML SYRINGE ONE (10:49)
[2021-03-24] MEDS ORDERED: HYDROmorphone 1 MG/1 ML SYRINGE ONE (10:56)
[2021-03-24] MEDS ORDERED: Sodium Chloride CONC. 4 MEQ/ML 77 MEQ in D10W 1000 ml BAG 1,000 ML IV SCH ×2 (11:00→13:30)
[2021-03-24] MEDS ORDERED: Pantoprazole VIAL 40 MG VIAL IV ONE (11:56)
[2021-03-24] MEDS ORDERED: Enoxaparin 40 MG/0.4 ML SYR SUBCUT SCH (12:00)
[2021-03-24] MEDS: KCL 20 MEQ/100 ML IVPREMIX 20 MEQ/100 ML BAG IV SCH ×7 (13:15→23:58)
[2021-03-24] MEDS: HYDROmorphone 1 MG/1 ML SYRINGE IV SLOW PU PRN ×2 (13:29→18:23)
[2021-03-24] MEDS: Labetalol IV 5 MG/ML 20 ml VIAL IV PUSH PRN (15:14)
[2021-03-24 15:15] LABS: Magnesium 1.5 mg/dL (1.9-2.7); Phosphorus 3.4 mg/dL (2.5-5.0)
[2021-03-24] MEDS ORDERED: Magnesium Sulf 4 GM/100 ML IV 4,000 MG/100 ML BAG IVPB ONE (15:35)
[2021-03-24] MEDS: Pancrelipase 5,000 units CAP PO SCH (18:24)
[2021-03-24] MEDS: Gemfibrozil 600 mg PO SCH (20:06)
[2021-03-24 20:21] LABS: Glucose Confirmatory 432 mg/dL (70-100)
[2021-03-24 22:23] LABS: Calcium 8.6 mg/dL (8.6-10.3); EGFR African American 121.8 (>60); EGFR Non-African American 100.6 (>60); Potassium 3.8 mmol/L (3.5-5.0)
[2021-03-25] MEDS: HYDROmorphone 1 MG/1 ML SYRINGE IV SLOW PU PRN ×4 (00:13→17:27)
[2021-03-25 00:39] LABS: Glucose Confirmatory 407 mg/dL (70-100)
[2021-03-25] MEDS: Labetalol IV 5 MG/ML 20 ml VIAL IV PUSH PRN (03:11)
[2021-03-25] MEDS ORDERED: HYDROmorphone 1 MG/1 ML SYRINGE IV SLOW PU ONE (03:56)
[2021-03-25] MEDS ORDERED: HYDROmorphone 1 MG/1 ML SYRINGE ONE (03:56)
[2021-03-25] MEDS ORDERED: NORMOSOL-R pH 7.4 1000 mL BAG 1,000 ML IV SCH (04:00)
[2021-03-25] MEDS ORDERED: Iodixanol (CONTRAST) 320 MG/ML 100 ML SDV IV ONE (04:20)
[2021-03-25 04:30] LABS: Hematocrit 38 % (42-52); Hemoglobin 13.3 g/dL (14.0-18.0); Mean Corpuscular HGB Conc 35 g/dL (31-36); Mean Corpuscular Hemoglobin 34 pg (27-31); Mean Corpuscular Volume 98 fL (80-94); Mean Platelet Volume 8.3 fL (7.4-10.4); Platelet Count 478 10^3/uL (150-450); Red Blood Count 3.92 10^6 /uL (4.18-5.48); Red Cell Distribution Width 14 % (10-15); White Blood Count 12.3 10^3/uL (3.5-10.8)
[2021-03-25 04:47] LABS: Albumin 3.4 g/dL (3.2-5.2); Albumin/Globulin Ratio 0.9 (1-3); Calcium 8.4 mg/dL (8.6-10.3); Direct Bilirubin 1.2 mg/dL (0.03-0.18); EGFR African American 123.5 (>60); EGFR Non-African American 102.1 (>60); Globulin 3.6 g/dL (2-4); Indirect Bilirubin 1.2 mg/dL (0.3-1.0); Magnesium 1.9 mg/dL (1.9-2.7); Phosphorus 2.5 mg/dL (2.5-5.0); Potassium 3.8 mmol/L (3.5-5.0); Total Bilirubin 2.4 mg/dL (0.2-1.0)
[2021-03-25] MEDS: Gemfibrozil 600 mg PO SCH (08:52)
[2021-03-25] MEDS: CMC:Lubiprostone 24 MCG CAP (NF) PO SCH (09:14)
[2021-03-25] MEDS ORDERED: Magnesium Sulfate IV 1GM/100ML 1 GM/100 ML BAG IV ONE (10:15)
[2021-03-25] MEDS ORDERED: Potassium Chlor 20 meq TAB.ER PO ONE (10:15)
[2021-03-25] MEDS: Pancrelipase 5,000 units CAP PO SCH ×3 (10:44→17:29)
[2021-03-25] MEDS ORDERED: Enoxaparin 30 MG/0.3 ML SYR SUBCUT SCH (15:00)
[2021-03-25 23:54] VITALS: BP 179/95
[2021-03-26] MEDS: Gemfibrozil 600 mg PO SCH (01:01)
[2021-03-26] MEDS: CMC:Lubiprostone 24 MCG CAP (NF) PO SCH (01:01)
== END 2021-03-25 23:13 | disposition left against medical advice (07) | DRG 420 ==
LOC: ED 07:12 → SUATTDRO 13:10 → ICU 13:10 → MED 03-25 13:36
PROVIDERS: ADMIT Surgery Surgical Critical Care; ATTEND Student in an Organized Health Care Education/Training Program